=== PATIENT | female | born 1975 | race Caucasian/White ===

== ENCOUNTER 2024-09-13 09:56 | Emergency (ER) | payer BC, SELFPAY ==
[2024-09-13] VITALS (10 sets, daily range): BP systolic 102–150; BP diastolic 50–91; PULSE 60–77; RESP 9–21; TEMP 36.9; O2SAT 94–100; BMI 64.5
--- NOTE | 2024-09-13 10:02 | ECG_ITS ---
APPROVED REPORT Exam: Resting ECG HR:75 bpm ECG Measurements Heart Rate 75 AXES MT 141 P 64 QRSd 103 QRS 65 QT 378 T 53 QTc 407 Conclusion SINUS RHYTHM NORMAL ECG Electronically signed by : ESTER GUERRERO, 09/16/2024 07:47:35
--- NOTE | 2024-09-13 10:04 | HMH.EDGENADL ---
Discharge Plan Disposition Patient Disposition: Home, Self-Care Referrals Follow up/Referrals: Abdulkadir Montoya [Primary Care Provider] - See instructions Leonides Hernandez MD [Staff Physician] - See instructions Activity Restrictions/Add. Instructions Additional Instructions/Restrictions: Follow-up with your primary care provider. You can take Tylenol and ibuprofen every 6 hours as needed to help with symptoms. If you develop any new or worsening symptoms, or if you become concerned for your health for any reason, return to the emergency department for evaluation Clinical Impressions Clinical Impression: Chest pain Instructions Patient Instructions: DI for Chest Pain Print Language Print Language: Portuguese Discharge ED Provider: Abdirizak Mcmahon General Adult HPI General Chief complaint: Chest Pain Stated complaint: chest/abd pain Time Seen by Provider: 09/13/24 10:04 History of Present Illness HPI narrative: Gisela Perez is a 48-year-old female with a past medical history of hypothyroidism, obesity, lupus who presents to the emergency department for complaints of abdominal pain, nausea and chest pain. Patient states that symptoms started this morning suddenly. She reports sharp chest pain but denies any cough or fever. She states that her abdominal pain is epigastric. She has not vomited but feels as if she is going to. She denies any diarrhea or urinary symptoms. She reports that she has had her gallbladder removed in the past. She reports that she has a left ankle sprain and is currently in a cast and this happened 4 weeks ago. She reports some intermittent leg swelling to the left leg that is not worse than normal. No history of blood clots. Related Data Allergies Allergy/AdvReac Type Severity Reaction Status Date / Time No Known Allergies Allergy Unverified 09/13/24 14:46 [facility] Disclaimer: The information contained in this section may have been updated after the patient was seen, as this information can be updated by other users. Social History Smoking Status: Never smoker alcohol intake: never current occupational status: employed Travel in the last 8 weeks?: Outside the [facility] ROS Obtained: Yes Systems reviewed as appropriate & no additional complaints except as documented Physical Exam General General appearance: alert, in no apparent distress, anxious and obese Head Head exam: atraumatic Eye Eye exam: Present normal appearance ENT ENT exam: Present normal external ear exam Neck Neck exam: Present full ROM Chest Chest inspection: Present symmetric chest wall rise and tenderness (Mid anterior chest wall tenderness to palpation) Respiratory Respiratory exam: Present normal lung sounds bilaterally; Absent respiratory distress, wheezes or stridor Cardiovascular Cardiovascular exam: Present regular rate and normal rhythm Abdominal Exam Abdominal exam: Present soft and tenderness (Epigastric); Absent distention or guarding Extremities Exam Extremities exam: Present normal inspection Back Exam Back exam: Present normal inspection Neurological Exam Neurological exam: Present alert and oriented X3 Psychiatric Psychiatric exam: Present normal affect Skin Skin exam: Present warm and dry Medical Decision Making Medical Records Screening: Per USPSTF and CDC recommendations, given the prevalence of disease in our region, it is our hospital?s policy to screen for HIV and viral Hepatitis for all patients aged 18 and over and those with ongoing risk factors. Cholo Inquiry Pt receiving controlled substance: No Vital Signs: 09/13/24 10:05 09/13/24 10:05 09/13/24 10:31 Temperature 98.4 F Temperature Source Oral Pulse Rate 70 72 Pulse Rate [Left Radial] 60 Respiratory Rate 19 12 15 Blood Pressure 140/91 H 104/64 L Blood Pressure [Right Arm] 118/50 L Blood Pressure Mean [Right Arm] 72 02 Sat by Pulse Oximetry 96 99 96 Oxygen Delivery Method Room Air 09/13/24 11:00 09/13/24 11:12 09/13/24 11:30 Temperature Temperature Source Pulse Rate 61 73 66 Pulse Rate [Left Radial] Respiratory Rate 9 L 21 15 Blood Pressure 124/70 150/82 H 117/75 Blood Pressure [Right Arm] Blood Pressure Mean [Right Arm] 02 Sat by Pulse Oximetry 94 L 99 95 Oxygen Delivery Method Room Air Room Air 09/13/24 12:00 09/13/24 12:30 09/13/24 13:00 Temperature Temperature Source Pulse Rate 74 63 71 Pulse Rate [Left Radial] Respiratory Rate 18 13 15 Blood Pressure 114/65 110/55 L 102/50 L Blood Pressure [Right Arm] Blood Pressure Mean [Right Arm] 02 Sat by Pulse Oximetry 95 95 96 Oxygen Delivery Method Room Air 09/13/24 13:30 09/13/24 14:55 Temperature 98.4 F Temperature Source Pulse Rate 72 77 Pulse Rate [Left Radial] Respiratory Rate 15 17 Blood Pressure 108/51 L 112/59 L Blood Pressure [Right Arm] Blood Pressure Mean [Right Arm] 02 Sat by Pulse Oximetry 95 Oxygen Delivery Method Room Air Lab Data Lab Results 09/13/24 10:06: WBC 6.8, RBC 4.39, Hgb 11.5 L, Hct 36.2 L, MCV 82.5, MCH 26.2 L, MCHC 31.8, RDW 15.0, Plt Count 217, MPV 11.4 H, Neut % (Auto) 58.5, Lymph % (Auto) 30.3, Mcculloch % (Auto) 7.6, Eos % (Auto) 3.2, Baso % (Auto) 0.3, Neut # (Auto) 4.0, Lymph # (Auto) 2.1, M[place]ulloch # (Auto) 0.5, Eos # (Auto) 0.2, Baso # (Auto) 0.0, D-Dimer 0.49, Sodium 140, Potassium 4.3, Chloride 107, Carbon Dioxide 29, Anion Gap 8.3, BUN 16, Creatinine 0.80, Estimated Creat Clear 79, Estimated GFR 77, Est GFR ( Amer) 93, Glucose 97, Calcium 9.1, Total Bilirubin 0.5, AST 28, ALT 21, Alkaline Phosphatase 116, Troponin I < 0.01, Total Protein 7.1, Albumin 4.2, Globulin 2.9, Albumin/Globulin Ratio 1.4, Lipase 97, HCV Ab CLEM w/Rflx PCR Qn Negative, HIV Ag/Ab Combo Qual Negative 09/13/24 10:14: VBG pH 7.34, VBG pCO2 49.0, VBG pO2 50.2 H, VBG HCO3 26.0, VBG Total CO2 27.5 H, VBG O2 Saturation 82.6 H, VBG Base Excess 0.2, VBG Lactic Acid 1.8 09/13/24 11:41: Urine Color Yellow, Urine Appearance Clear, Urine pH 6.0, Ur Specific [place] 1.015, Urine Protein Negative, Urine Glucose (UA) Negative, Urine Ketones Negative, Urine Blood Negative, Urine Nitrate Negative, Urine Bilirubin Negative, Urine Urobilinogen 0.2, Ur Leukocyte Esterase Negative, Urine RBC None, Urine WBC None, Ur Squamous Epith Cells 5-10, Urine Bacteria Trace 09/13/24 12:53: Troponin I < 0.01 09/13/24 10:06 09/13/24 10:06 Orders (Tests/Meds): ED MEDICATIONS Discontinued Medications Generic Name Dose Route Start Last Admin Trade Name Freq PRN Reason Stop Dose Admin Acetaminophen 1,000 mg 09/13/24 14:42 09/13/24 14:54 Acetaminophen 500mg Tab PO 09/13/24 14:43 1,000 mg ONCE ONE Administration Ketorolac Tromethamine 15 mg 09/13/24 10:49 09/13/24 10:57 Ketorolac 30mg/Ml Vial IV 09/13/24 10:50 15 mg ONCE ONE Administration Lorazepam 1 mg 09/13/24 11:15 09/13/24 11:32 Lorazepam 1mg Tablet PO 09/13/24 11:16 1 mg ONCE ONE Administration Morphine Sulfate 4 mg 09/13/24 10:10 09/13/24 10:19 Morphine 4mg/Ml Syringe IV 09/13/24 10:11 4 mg ONCE ONE Administration Ondansetron HCl 4 mg 09/13/24 10:10 09/13/24 10:19 Ondansetron 4mg/2ml Vial IV 09/13/24 10:11 4 mg ONCE ONE Administration ORDERS Category Date Time Status CXR --portable [XR chest portable] Stat Exams 09/13/24 10:10 Completed CBC w/Auto Diff [Complete Blood Count Auto Diff] Stat Lab 09/13/24 10:06 Completed CMP [Comprehensive Metabolic Panel] Stat Lab 09/13/24 10:06 Completed D-Dimer Stat Lab 09/13/24 10:06 Completed HIV Combo Stat Lab 09/13/24 10:06 Completed Hepatitis C Ab Qual. W/ RFX Stat Lab 09/13/24 10:06 Completed Lipase Stat Lab 09/13/24 10:06 Completed Troponin I Q3H Lab 09/13/24 12:53 Completed Troponin I Stat Lab 09/13/24 10:06 Completed UA [Urinalysis and Microscopic] Stat Lab 09/13/24 11:41 Completed VBG [Venous Blood Gas] Stat RT 09/13/24 10:14 Completed ECG Data Tracing #1: I reviewed this ECG and interpreted as documented below: EKG interpreted by me personally at 10:03 AM. Normal sinus rhythm with ventricular rate of 75 bpm. QTc normal at 407. No ST elevation or depression Medical Decision Narrative: Gisela Perez is a 48-year-old female with a past medical history of hypothyroidism, obesity, lupus who presents to the emergency department for complaints of abdominal pain, nausea and chest pain. Patient states that symptoms started this morning suddenly. She reports sharp chest pain but denies any cough or fever. She states that her abdominal pain is epigastric. She has not vomited but feels as if she is going to. She denies any diarrhea or urinary symptoms. She reports that she has had her gallbladder removed in the past. She reports that she has a left ankle sprain and is currently in a cast and this happened 4 weeks ago. She reports some intermittent leg swelling to the left leg that is not worse than normal. No history of blood clots. On arrival, patient is normotensive, heart rate normal limits, breathing comfortably on room air with appropriate oxygen saturation. Afebrile. Physical exam, as stated above, revealed an obese and nontoxic appearing female appears uncomfortable but in no acute respiratory distress. Cardiopulmonary exam is unremarkable. Abdomen is soft, and mildly tender in the epigastric region without guarding or rebound. No peritonitis. She has a cast on her left foot without significant swelling to the lower extremities. On examination of the patient's chest, she has reproducible pain in the mid chest wall. Differential diagnosis includes, but is not limited to: ACS, pericarditis, myocarditis, PE, pneumonia, costochondritis, pleurisy, acute pancreatitis, among others. Patient's workup in the emergency department included: Chest x-ray, EKG, lipase, CBC, CMP, troponin, D-dimer, urinalysis patient was initially treated with 4 mg of IV morphine and 4 mg of IV Zofran. Patient subsequently received 15 mg IV Toradol for continued pain. EKG was grossly unremarkable. See interpretation above. Patient's workup was grossly unremarkable. Negative D-dimer. Negative troponin x 2. No leukocytosis. Electrolytes within normal limits. Chest x-ray without evidence of pneumonia, pneumothorax or widening of the mediastinum. See radiology report for details. Given the reproducible nature of the patient's pain in the mid chest, and her negative workup today, is felt that patient's symptomatology is unlikely cardiac in nature and potentially related to pleurisy/costochondritis. Patient had some temporary relief in her symptoms after Toradol. Patient recommended to take Tylenol and ibuprofen at home and to follow-up with her primary care physician. Return precautions were given. All questions were answered. She demonstrated understanding and was in agreement this plan. She was then discharged from the emergency department in stable condition. Critical Care Critical Care Time Critical Care Time: No
--- NOTE | 2024-09-13 10:10 | XR_ITS ---
FINAL REPORT CLINICAL HISTORY: Chest pain COMPARISON: None FINDINGS: CHEST 1 VIEW No acute pulmonary opacity is present. There is no evidence of effusion or pneumothorax. Mediastinum is unremarkable. Heart size is normal. IMPRESSION: No acute abnormality. Reviewed, Interpreted and Dictated by Deonna Tapia MD Transcribed by Qian Palacio Authenticated and [facility]
[2024-09-13 10:16] LABS: Basophils % 0.3 % (0.1-2.0); Eosinophils # 0.2 Kmm3 (0.0-0.4); Eosinophils % 3.2 % (0.1-12.0); Hematocrit 36.2 % (37.0-47.0); Hemoglobin 11.5 g/dL (12.2-16.2); Immature Granulocytes # 0.01 10^3uL; Immature Granulocytes % 0.1 %; Lymphocytes # 2.1 K/mm3 (0.7-4.5); Lymphocytes % 30.3 % (10-50); Mean Corpuscular HGB Conc 31.8 g/dL (31.8-35.4); Mean Corpuscular Hemoglobin 26.2 pg (27.0-31.2); Mean Corpuscular Volume 82.5 fl (81-99); Mean Platelet Volume 11.4 fl (7.4-10.4); Monocytes # 0.5 K/mm3 (0.1-1.0); Monocytes % 7.6 % (1.7-9.3); Neutrophils % 58.5 % (37.0-80.0); Nucleated Red Blood Cells # 0 10^3/uL; Nucleated Red Blood Cells % 0 %; Platelet Count 217 K/mm3 (142-424); Red Blood Count 4.39 M/mm3 (4.20-5.40); White Blood Count 6.8 K/mm3 (4.8-10.8)
[2024-09-13] MEDS: ONDANSETRON 4MG/2ML VIAL 4 MG IV (10:19)
[2024-09-13] MEDS: MORPHINE 4MG/ML SYRINGE 4 MG IV (10:19)
[2024-09-13 10:20] LABS: Lactate Venous 1.8 mmol/L (0.4-2.0); VBG Base Excess 0.2 mmol/L (-2.4-2.3); VBG Oxygen Saturation 82.6 % (50-70); VBG PH 7.34 mmol/L (7.31-7.41); VBG PO2 50.2 mmol/L (28-40); VBG Total CO2 27.5 mmol/L (23-27)
[2024-09-13 10:30] LABS: Alanine Aminotransferase 21 U/L (12-78); Albumin Level 4.2 g/dl (3.5-5.0); Albumin/Globulin Ratio 1.4 (1.1-1.8); Alkaline Phosphatase 116 U/L (38-126); Anion Gap 8.3 mEq/L (5-15); Aspartate Amino Transferase 28 U/L (14-36); Bilirubin,Total 0.5 mg/dl (0.2-1.3); Blood Urea Nitrogen 16 mg/dl (7-17); Calcium 9.1 mg/dl (8.4-10.2); Carbon Dioxide 29 mmol/L (22.0-30.0); Chloride 107 mmol/L (98-107); Creatinine Clearance Estimated 79 mL/min (50-200); Estimated Glomerular Filt Rate 77 ml/min (>60); GFR (African American) 93 ML/MIN (>60); Globulin 2.9 g/dL (1.3-3.2); Glucose 97 mg/dl (74-100); Lipase 97 U/L (23-300); Potassium 4.3 mmoL/L (3.5-5.1); Sodium 140 mmol/L (136-145); Total Protein,Serum 7.1 g/dl (6.3-8.2)
[2024-09-13 10:36] LABS: D-Dimer 0.49 ug/mL (0.0-0.5)
[2024-09-13 10:52] LABS: Troponin I < 0.01 ng/ml (0.00-0.034)
[2024-09-13] MEDS: KETOROLAC 30MG/ML VIAL 15 MG IV (10:57)
[2024-09-13 11:29] LABS: HIV Combo NEGATIVE (Negative)
[2024-09-13] MEDS: LORazepam 1MG TABLET 1 MG PO (11:32)
[2024-09-13 11:36] LABS: Hepatitis C Ab Qual. W/ RFX NEGATIVE (Negative)
[2024-09-13 11:44] LABS: Microscopic, Urine URINE MICROSCOPIC (MICROSCOPIC)
[2024-09-13 12:06] LABS: Appearance,Urine CLEAR (Clear); Bilirubin,Urine Negative (Negative); Blood, Urine Negative (Negative); Color,Urine YELLOW (Yellow); Glucose,Urine (UA) Negative (Negative); Ketones,Urine Negative (Negative); Leukocyte Esterase,Urine Negative (Negative); Nitrate,Urine Negative (Negative); Protein,Urine Negative (Negative); Specific Gravity, Urine 1.015 (1.005-1.030); Urobilinogen,Urine 0.2 EU/dl (0.2)
[2024-09-13 12:21] LABS: Bacteria,Urine Trace /lpf
[2024-09-13 13:27] LABS: Troponin I < 0.01 ng/ml (0.00-0.034)
[2024-09-13] MEDS: ACETAMINOPHEN 500MG TAB 1000 MG PO (14:54)
== END 2024-09-13 15:01 | disposition home or self-care (01) ==
PROVIDERS: Emergency Provider Student in an Organized Health Care Education/Training Program; PCP Pediatrics
DX: R07.9 Chest pain, unspecified (principal); E03.0 Congenital hypothyroidism with diffuse goiter; M32.9 Systemic lupus erythematosus, unspecified
CPT/HCPCS: 71045; 80053; 81001; 82803; 83690; 84484; 85025; 85378; 86803; 87389; 93005; 96374; 96375; 99285; J1885; J2270; J2405

== ENCOUNTER 2024-11-16 16:07 | Emergency (ER) | payer BC, SELFPAY ==
--- OUTSIDE RECORDS SUMMARY | 2024-09-24 10:45 | XMS_ITS | Encounter Summary ---
Author Organization [facility] Address [address] [place] [address] Care Team Providers Care Director Of Manufacturing Operations Name Role Phone Abdulkadir Montoya MD Primary Care Provider [phone] Reason for Visit * Reason Comments Follow-up Encounter Details Date Type Department Care Team (Latest Contact Info) Description 09/24/2024 10:45 [place] [address] Leonides Stroud, DPDelfina [address] [id number] Stress reaction of left foot with routine healing, subsequent encounter (Primary Dx); Peroneal tendinitis of left lower extremity; Sprain of tarsometatarsal ligament of left foot, subsequent encounter Social History Tobacco Use Types Packs/Day Years Used Date Smoking Tobacco: Former Cigarettes 0.5 24 1 - 01/22/1999 Passive Smoke Exposure: Past Smokeless Tobacco: Never Alcohol Use Standard Drinks/Week Comments No 0 (1 standard drink = 0.6 oz pur e alcohol) Overall Financial Resource Strain (CARDIA) Answe r Date Recorded How hard is it for you to pa y for the very basics like food, housing, medical care, and heating? Not hard at all 04/04/2023 PHQ-2 Answer Date Recorded PHQ-2 Total Score 0 04/04/2023 [facility] - Occupational Stress Questionnaire Answer Date Recorded Do you feel stress - tense, restless, nervous, or anxious, or unable to sleep at night because your mind is troubled all the time - these days? Not at all 04/06/2023 Exercise Vital Sign Answer Date Recorde d On average, how many days pe r week do you engage in moderate to strenuous exercise (like a brisk walk)? 0 days 04/04/2023 On average, how many minutes do you engage in exercise at this level? 0 min 04/04/2023 Hunger Vital Sign Answer Date Recorded Within the past 12 months, y ou worried that your food would run out before you got the money to buy more. Never true 04/04/20 23 Within the past 12 months, t he food you bought just didn't last and you didn't have money to get more. Never true 04/04/2023 PRAPARE - Transportation Answer Date Re corded In the past 12 months, has l ack of transportation kept you from medical appointments or from getting medications? No 03/24 In the past 12 months, has l ack of transportation kept you from meetings, work, or from getting things needed for daily living? No 04/04/2023 Sexually Active Control Partners Comments Yes Surgical Male hysterectomy Comments No Sex and Gender Information Value Date Recorded Sex Assigned at Not on file Legal Sex Female 4:39 PM EDT Gender Identity Not on file Sexual Orientation Not on file documented as of this encounter Functional Status * Is the person deaf or does he/she have serious difficulty hearing? Answer Date of Assessment Author No 09/02/2023 11:02 AM ALTRICE LYMAN * Is the person blind or does he/she have serious difficulty seeing even when wearing glasses? Answer Date of Assessment Author No 09/02/2023 11:02 AM LATRICE LYMAN * Does this person have serious difficulty walking or climbing stairs? Answer Date of Assessment Author No 09/02/2023 11:02 AM LATRICE LYMAN * Does this person have difficulty dressing or bathing? Answer Date of Assessment Author No 09/02/2023 11:02 AM LATRICE LYMAN * Because of a physical, mental or emotional condition, does this person have difficulty doing errands alone such as visiting a doctor's office or shopping? Answer Date of Assessment Author No 09/02/2023 11:02 AM LATRICE LYMAN NA documented as of this encounter Mental Status * Because of a physical, mental or emotional condition, does this person have serious difficulty concentrating, remembering or making decisions? Answer Entry Date Author No 09/02/2023 11:02 AM LATRICE LYMAN NA documented in this encounter Progress Notes * Leonides Stroud DPM - 09/24/2024 10:45 AM EDT Images from the original note were not included. PATIENT NAME: Gisela Kennedy DATE OF (age): 48 y.o. PHYSICIAN: Leonides Stroud DPM Date of Visit: 09/24/2024 Subjective: Chief Complaint: Chief Complaint Patient presents with Left Foot - Follow-up History: Gisela Kennedy is a 48 y.o. female. Over the last 3 weeks the casting of the left leg has created relief from previous lateral midfoot pain. Past Medical History: Reviewed registration form and medical history. Past Surgical History: Reviewed registration form and medical history. Family History: Reviewed registration form and medical history. Social History: Reviewed registration form and medical history. Review of Systems: Reviewed registration form and medical history. Objective Removal of the cast shows no neurovascular or dermatologic damage to the left leg. The styloid process is pain-free. The cuboid is pain-free. Surprisingly, there is a mild area of new pain at the ATFL. I do not see other problems. Imaging Deferred Assessment Diagnoses and all orders for this visit: Stress reaction of left foot with routine healing, subsequent encounter Peroneal tendinitis of left lower extremity Sprain of tarsometatarsal ligament of left foot, subsequent encounter Plan At this point I think the pain around the ATFL is secondary to casting itself and will resolve withthe discontinuation of casting. I believe stability has been achieved elsewhere. This patient will use her previous contour boot as a weaning device and utilize range of motion activities to restore strength and function to the ankle. All techniques were discussed in detail. Follow-up is only as needed and not expected. DME Summary No orders found for display Leonides Stroud DPM documented in this encounter Plan of Treatment Upcoming Encounters Date Type Department Care Team (Late st Contact Info) Description 11/21/2024 1:45 PM EDT Office Visit [facility] [address] [place], [place] [phone] Arminda Wilson APRN [address] [place], [place] [id number] 02/10/2025 1:30 PM EDT Office Visit [facility] [address] [place] [address] Judith Lomax MD [address] [facility] [address] [place] [address] documented as of this encounter Goals Goal Patient Goal Type Associated Problems Recent Progress Patient-Stated? Author Eat better, exercise, reach an ideal body weight General No Rula Birch CCMA Stay Tobacco Free Lifestyle No Rula Birch CCMA documented as of this encounter Visit Diagnoses Diagnosis Stress reaction of left foot with routine healing, subsequent encounter- Primary Peroneal tendinitis of left lower extremity Other enthesopathy of ankle and tarsus Sprain of tarsometatarsal ligament of left foot, subsequent encounter documented in this encounter Care Teams Director Of Manufacturing Operations Relationship Specialty Start Date End Date Abdulkadir Montoya MD [address] [place] [address] [place] [address] PCP - General 06/29/09 documented as of this encounter
--- OUTSIDE RECORDS SUMMARY | 2024-10-07 08:30 | XMS_ITS | Encounter Summary ---
Author Organization [place] [address] Care Team Providers Care Design Editor Name Role Phone Abdulkadir Montoya MD Primary Care Provider [phone] Encounter Details Date Type Department Care Team (Latest Contact Info) Description 10/07/2024 8:30 AM EDT - 10/07/2024 11:59 PM EDT Hospital Encounter [facility] [address] 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 60 Each 09/26/2023 Brompheniramine-P seudoeph-DM 2-30-10 mg/5 mL Oral SyrupIndications: Viral URI with cough Take 10 mL by mouth every 4 hours as needed (Cough, Nasal Congestion, Allergies). 240 mL 1 06/07/2024 COLLAGEN MISC 2 Tablets by [employer].(Non-Drug; Combo Route) route daily. Collagen Peptide Multivitamin docusate sodium (COLACE) 100 mg Oral Capsule Take 1 Capsule by mouth 2 times daily. 60 Capsule 2 04/04/2024 EPINEPHrine (EPIPEN) 0.3 mg/0.3 mL Inj Auto-Injector Inject 0.3 mL into the muscle as needed for Anaphylaxis. 2 Each 04/10/2024 fUROsemide (LASIX) 40 mg Oral Tablet TAKE 1 TABLET BY MOUTH EVERY DAY 30 Tablet 10/09/2024 hydroxychloroquin e (PLAQUENIL) 200 mg Oral TabletIndications :YNES positive TAKE 1 TABLET BY MOUTH EVERY DAY 30 Tablet 5 06/10/2024 ibuprofen (ADVIL;MOTRIN) 800 mg Oral TabletIndications :Stress reaction of left foot, initial encounter,Peronea l tendinitis of left lower extremity,Painful os peroneum syndrome Take 1 Tablet by mouth every 6 hours as needed. 40 Tablet 08/20/2024 ibuprofen (ADVIL;MOTRIN) 600 mg Oral Tablet Take 1 Tablet by mouth every 6 hours as needed for Pain. 60 Tablet 1 04/04/2024 LEVOthyroxine (SYNTHROID) 175 mcg Oral Tablet Take 1 Tablet by mouth daily. 08/08/2024 meloxicam (MOBIC) 15 mg Oral TabletIndications :Acute midline low back pain without sciatica TAKE 1 TABLET BY MOUTH EVERY DAY 30 Tablet 2 09/10/2024 omeprazole (PRILOSEC) 40 mg Oral Capsule, Delayed Release(E.C.)Clary cations:Abdominal pain, LUQ (left upper quadrant) Take 1 Capsule by mouth daily. 90 Capsule 3 04/26/2024 rOPINIRole (REQUIP) 1 mg Oral TabletIndications :Restless legs syndrome (RLS) TAKE 1 TABLET BY MOUTH EVERY DAY AT NIGHT 90 Tablet 1 10/08/2024 fUROsemide (LASIX) 40 mg Oral Tablet TAKE 1 TABLET BY MOUTH EVERY DAY 30 Tablet 08/30/2024 5 gabapentin (NEURONTIN) 400 mg Oral Capsule Take 1 Capsule by mouth 3 times daily for 90 days. 90 Capsule 2 07/16/2024 5 naproxen (NAPROSYN) 500 mg Oral Tablet [...] 11/21/2024 1:45 PM EDT Office Visit [facility] [address] [place] [id number] Arminda Wilson APRN [address] [place] [id number] 02/10/2025 1:30 PM EDT Office Visit [facility] [place] [address] [facility] [address] [place] [address] Judith Lomax MD [address] [facility] [address] [place] [id number] documented as of this encounter Goals Goal Patient Goal Type Associated Problems Recent Progress Patient-Stated? 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
--- OUTSIDE RECORDS SUMMARY | 2024-10-30 09:25 | XMS_ITS | Encounter Summary ---
Author Organization [place] [address] Care Team Providers Care Oyster Shucker Name Role Phone Abdulkadir Montoya MD Primary Care Provider [phone] Reason for Referral * Mammography (Routine) - Pending Review Specialty Diagnoses / Procedures Referred By Donna quiñonez Referred To Contact Radiology Diagnoses Encounter for screening mammogram for malignant neoplasm of breast Procedures MM MAMMO DIGITAL TRACIE SCREEN Arminda Orozco APRN [address] [place] [address] Phone: tel: fax: Referral ID Status Reason Start Date Expiration Date V isits Requested Visits Authorized [id number] Pending Review 2024 2026 1 1 Reason for Visit * Mammography (Routine) - Pending Review Specialty Diagnoses / Procedures Referred By Donna quiñonez Referred To Contact Radiology Diagnoses Encounter for screening mammogram for malignant neoplasm of breast Procedures MM MAMMO DIGITAL TRACIE SCREEN Arminda Orozco APRN [address] [place] [address] Phone: tel: fax: Referral ID Status Reason Start Date Expiration Date V isits Requested Visits Authorized [id number] Pending Review 2024 2026 1 1 Encounter Details Date Type Department Care Team (Latest Contact Info) Description 10/30/2024 9:25 AM EDT - 10/30/2024 11:59 PM EDT Hospital Encounter [facility] [address] [place] [phone] Arminda [place] APRN [address] [...] Date Recorded PHQ-2 Total Score 0 04/04/2023 [facility] [place] of Occupat ional Health - Occupational Stress [...] Entry Date Author No 09/02/2023 11:02 AM LATIRCE LYMAN documented in this encounter Medications at [...] 1 06/07/2024 COLLAGEN MISC 2 Tablets by Mis.(Non-Drug; Combo Route) route daily. Collagen Peptide Multivitamin [...] needed for Muscle spasms. 30 Tablet 2024 gabapentin (NEURONTIN) 400 mg Oral Capsule Take 1 Capsule by mouth 3 times daily for 90 days. 90 Capsule 2 07/16/2024 PARoxetine (PAXIL) 20 mg Oral Tablet TAKE 1 TABLET BY MOUTH EVERY DAY 30 Tablet 10/08/2024 5 documented as of this encounter Discharge Disposition Disposition Code Departure Means Destination Home or Self Care documented in this encounter Plan of Treatment Upcoming Encounters Date Type Department Care Team (Late st Contact Info) Description 11/21/2024 1:45 PM EDT Office Visit [facility] [place] [facility] [address] [place] [phone] Arminda Wilson APRN [address] [place] [address] 02/10/2025 1:30 PM EDT Office Visit [facility] [address] [facility] [address] [place] [address] Judith Lomax MD [address] [facility] [address] [place] [address] documented as of this encounter [...] EDT Impressions 10/30/2024 10:39 AM EDT Negative ([id number]) RECOMMENDATION: Routine Screening Mammogram in 1 Year Bilateral . . COMMENTS: DISCLAIMER *The patient was notified by MyChart or mail of the results for this examination. *The patient's information was entered into a reminder system with a target due date for the next breast imaging, in accordance with the [employer] and the Society of [...] for screening mammogram for malignant neoplasm of [id number] COMPARISON STUDIES: Compared with prior studies the most recent being 09/16/2022 MM MAMMO DIGITAL TRACIE SCREEN BILAT at [facility] TISSUE DENSITY: There are scattered areas of fibroglandular density. FINDINGS: No mammographic evidence of malignancy. Procedure Note Kaleb Jimenez MD - 10/30/2024 EXAM: MM MAMMO DIGITAL TRACIE SCREEN BILAT EXAM DATE: 10/30/2024 10:03 AM INDICATION: Z12.31-Encounter for screening mammogram for malignantneoplasm of [id number]-[id number] COMPARISON STUDIES: Compared with prior studies the most recent being 09/16/2022 MM MAMMO DIGITAL TRACIE SCREEN BILAT at [facility] TISSUE DENSITY: There are scattered areas of fibroglandular density. FINDINGS: No mammographic evidence of malignancy. IMPRESSION: Negative ([id number]) RECOMMENDATION: Routine Screening Mammogram in 1 Year Bilateral . . COMMENTS: DISCLAIMER *The patient was notified by MyChart or mail of the results for this examination. *The patient's information was entered into a reminder system with atarget due date for the next breast imaging, in accordance with the [employer] and the Society of Breast Imaging recommendations. *Breast Imaging has a false negative rate of 15%. *Any patient with a palpable abnormality, unexplained by breast imaging,should be managed on a clinical basis by the attending physician. Armindadiaz Wilson CUSTOMER SUPPLY COORDINATOR IMG MAMMOGRAPHY ORDERABLES Final Result documented in this encounter Visit Diagnoses Diagnosis Encounter for screening mammogram for malignant neoplasm of breast Other screening mammogram documented in this encounter Care Teams Oyster Shucker Relationship Specialty Start Date End Date Abdulkadir Montoya MD [address] [place], [place] [id number] PCP - General 06/29/09 documented as of this encounter
--- OUTSIDE RECORDS SUMMARY | 2024-11-06 12:23 | XMS_ITS | Encounter Summary ---
Author Organization [place] [address] Care Team Providers Care Rn Occupational Name Role Phone Abdulkadir Montoya MD Primary Care Provider [phone] Reason for Visit * Reason Comments Fall Pt states she fell l ast night in a small hole and state she is having right hip and leg pain. Encounter Details Date Type Department Care Team (Late st Contact Info) Description 11/06/2024 12:23 PM EDT - 11/06/2024 3:24 PM EDT Emergency [facility] [address] [place] [address]. [place] [address] Corazon Salvador MD [address] [place] [phone] Right leg pain (Primary Dx); Right [...] Date Recorded PHQ-2 Total Score 0 04/04/2023 [facility] - Occupational Stress Questionnaire Answer Date Recorded [...] 12:21 PM EDT Abdirizak Resendiz RN * [facility] Suicide Severity Rating Scale (Q shift for [...] 1 06/07/2024 COLLAGEN MISC 2 Tablets by Misc.(Non-Drug; Combo Route) route daily. Collagen Peptide Multivitamin [...] Pack See package instructions 21 Tablet 11/05/2024 omeprazole (PRILOSEC) 40 mg Oral Capsule, Delayed [...] 90 days. 90 Capsule 2 07/16/2024 5 documented as of this encounter Ordered [...] up to 30 days. 20 Tablet 11/06/2024 12/06/2024 documented in this encounter Discharge Disposition Disposition [...] 1200, 1600, 2000. 09/26/23 Jj Garcia MD Lqlyijfyqnzhwhx-Qfwnlyrdr-AD 2-30-10 mg/5 mL Oral Syrup Take 10 mL by mouth every 4 hours as needed(Cough, Nasal Congestion, Allergies). 06/07/24 Arminda Wilson APRN COLLAGEN MISC 2 Tablets by [facility].(Non-Drug; Combo Route) route daily. Collagen Peptide Multivitamin [...] Systemic lupus erythematosus with organ system involvement (HCC) 01/08/2024 Thyroid disease Urinary incontinence Urinary tract [...] DEFORMITY CALCANEUS; Surgeon: Parveen Marsh MD; Location: [facility] MAIN OR; Service: Orthopedics APPENDECTOMY BACK SURGERY laminectomy, discectomy SECTION CHOLECYSTECTOMY, LAPAROSCOPIC 06/18/2012 LAPAROSCOPIC CHOLECYSTECTOMY ; Surgeon: Faith Navas MD; [facility]; Service: General CYSTOCELE REPAIR N/A 04/04/2024 Anterior Repair; Posterior Repair; Placement of Retropubic Midurethral Mesh Sling; Cystoscopy; Surgeon: Elmira Mendoza MD; [facility]; Service: Gynecology DENTAL SURGERY 01/29/2013 premolar DILATION AND CURETTAGE OF UTERUS ENDOMETRIAL ABLATION N/A 07/29/2015 Surgeon: Manuel Moran MD; Location: [facility] MA[facility] OR; Service: Gynecology HYSTERECTOMY Left 08/11/2020 ROBOTIC ASSISTED TOTAL LAPAROSCOPIC HYSTERECTOMY LEFT OOPHORECTOMY ; Surgeon: Beverly Hernandez DO; Location: [facility] OR; Service: Gynecology HYSTEROSCOPY August LAPAROSCOPY Right 07/29/2015 DAVINCI ROBOTIC ASSISTED LAPAROSCOPY BILATERAL SALPINGECTOMY, RIGHT OOPHERECTOMY WITH DILATION AND CURETTAGE HYSTEROSCOPY ABLATION WITH NOVASURE; Surgeon: Manuel Moran MD; Location: [facility] OR; Service: Gynecology LUMBAR DISC SURGERY Bilateral 03/11/2016 LUMBAR LAMINECTOMY AND DISCECTOMY LEFT L5/S1 ; Surgeon: Ramesh Garcia MD; Location: [facility] MA[facility] OR; Service: Neurosurgery OVARY REMOVAL Right SHOULDER ARTHROSCOPY Right 02/04/2013 RIGHT SHOULDER ARTHROSCOPY, ROTATOR CUFF REPAIR, SUBACROMIAL DECOMPRESSION, MACARIO, DEBRIDEMENT ; Surgeon: Kendall Garcia MD; [facility]; Service: Orthopedics SHOULDER SURGERY SOFT TISSUE BIOPSY N/A 03/29/2016 INCISION AND DRAINAGE LUMBAR WOUND; Surgeon: Ramesh Garcia MD; Location: [facility] OR; Service: Neurosurgery SPINE SURGERY TONSILLECTOMY TUBAL LIGATION URETHROPEXY N/A 04/04/2024 .; Surgeon: Elmira Mendoza MD; [facility]; Service: Gynecology Review of Systems [...] may contain unintended errors Yin Raygoza PA-C 11/06/241524 Cosigned by Corazon Salvador MD at 11/07/2024 [...] 11/21/2024 1:45 PM EDT Office Visit [facility] [place] [address] [place] [phone] Arminda Wilson APRN [address] [facility] [place] [address] 02/10/2025 1:30 PM EDT Office Visit [facility] [place] [address] [facility] [address] [place] [phone] Judith Lomax MD [address] [address] documented as of this encounter [...] the ordering clinician. Yin Raygoza PA-C IMG CT ORDERABLES Final Result * [...] 11/06/2024 documented in this encounter Care Teams Rn Occupational Relationship Specialty Start Date End Date Abdulkadir Montoya MD [address] [place] [phone] PCP - General 06/29/09 documented as of this encounter
--- OUTSIDE RECORDS SUMMARY | 2024-11-12 11:30 | XMS_ITS | Encounter Summary ---
Author Organization [place] [address] Care Team Providers Care Press Operator Apprentice Name Role Phone Abdulkadir Montoya MD Primary Care Provider [phone] Reason for Visit * Reason Comments Follow-up Encounter Details Date Type Department Care Team (Latest Contact Info) Description 11/12/2024 11:30 AM EDT Office Visit [facility] [address] [phone] Nicolette Phillips PA-C [address] [place] [address] History of pelvic surgery (Primary Dx); History of repair of rectocele; History of suburethral sling procedure Social History Tobacco Use Types Packs/Day Years [...] Date Recorded PHQ-2 Total Score 0 04/04/2023 [employer] - Occupational Stress [...] Sign Reading Time Taken Comments Blood Pressure - - Pulse 80 11/12/2024 11:16 AM EDT Temperature - - Respiratory Rate 16 11/12/2024 11:16 AM EDT Oxygen Saturation 99% 11/12/2024 11:16 AM EDT Inhaled Oxygen Concentration - - Weight - - Height - - Body Mass Index - - documented in this encounter Functional Status * Is the person deaf or does he/she have serious difficulty hearing? Answer Date of Assessment Author No 09/02/2023 11:02 AM EDLATRICE HARRY * Is the person blind or does he/she have serious difficulty seeing even when wearing glasses? Answer Date of Assessment Author No 09/02/2023 11:02 AM EDT HOEH, AN NA * Does this person have serious difficulty walking or climbing stairs? Answer Date of Assessment Author No 09/02/2023 11:02 AM ERNIE CALL, AN NA * Does this person have difficulty dressing or bathing? Answer Date of Assessment Author No 09/02/2023 11:02 AM ERNIE CALL, AN NA * Because of a physical, mental or emotional condition, does this person have difficulty doing errands alone such as visiting a doctor's office or shopping? Answer Date of Assessment Author No 09/02/2023 11:02 AM ERNIE CALL, AN NA documented as of this encounter Mental Status * Because of a physical, mental or emotional condition, does this person have serious difficulty concentrating, remembering or making decisions? Answer Entry Date Author No 09/02/2023 11:02 AM ERNIE CALL, AN NA documented in this encounter Progress Notes * Nicolette Phillips PA-C - 11/12/2024 11:30 AM EDT Images from the original note were not included. Nicolette Phillips PA-C Follow Up Note Gisela Kennedy 1975 Assessment: 49 y.o. female with 1. History of pelvic surgery 2. History of repair of rectocele 3. History of suburethral sling procedure Plan: 1) H/o Anterior Repair; Posterior Repair with levator plication; Enterocele repair; Placement of Retropubic Midurethral Mesh Sling; Cystoscopy with Dr. Lovelace on 04/04/24: No return of vaginal bulge/POP symptoms. RONY resolved. -Normal post op healing 2) F/u in 1 year, sooner if symptoms return/worsen HPI: Gisela Guthrie Chris Marcia is a 49 y.o. who is here for f/u s/p POP/RONY surgery Patient has been doing well. No new issues or concerns today. S/p Anterior Repair; Posterior Repair with levator plication; Enterocele repair; Placement of Retropubic Midurethral Mesh Sling; Cystoscopy with Dr. Lovelace on 04/04/24 Vaginal bulge/POP symptoms: Resolved since surgery RONY: Resolved since surgery Vaginal bleeding: None Vaginal discharge: None UTI symptoms: None Difficulty emptying: None Past Medical History: Diagnosis Date Allergy Anemia in the past Anxiety Arthritis Asthma 01/29/2013 last attack one and half months ago. BUTLER (dyspnea on exertion) GERD (gastroesophageal reflux disease) Conchis's disease Headache Heartburn Hypothyroidism Neuromuscular disorder ([facility]) legs and feet Pneumonia 2018 Postoperative nausea and vomiting 01/29/2013 Rash Rotator cuff injury 01/29/2013 currently right rotator cuff injury. Sleep apnea LOW SPO2 LEVELS Slow to wake up after anesthesia Systemic lupus erythematosus with organ system involvement ([facility]) 01/08/2024 Thyroid disease Urinary incontinence Urinary tract infection not current Past Surgical History: Procedure Laterality Date ACHILLES TENDON SURGERY Left 09/28/2018 LEFT ACHILIES TENDON RECONSTRUCTION WITH EXCISION 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; Surgeon: Parveen Marsh MD; Location: [facility] OR; Service: Orthopedics APPENDECTOMY BACK SURGERY laminectomy, discectomy SECTION CHOLECYSTECTOMY, LAPAROSCOPIC 06/18/2012 LAPAROSCOPIC CHOLECYSTECTOMY ; Surgeon: Faith Navas MD; Location: [facility] OR; Service: General CYSTOCELE REPAIR N/A 04/04/2024 Anterior Repair; Posterior Repair; Placement of Retropubic Midurethral Mesh Sling; Cystoscopy; Surgeon: Elmira Mendoza MD; Location: [facility] OR; Service: Gynecology DENTAL SURGERY 01/29/2013 premolar DILATION AND CURETTAGE OF UTERUS ENDOMETRIAL ABLATION N/A 07/29/2015 Surgeon: Manuel Moran MD; Location: [facility] OR; Service: Gynecology HYSTERECTOMY Left 08/11/2020 ROBOTIC ASSISTED TOTAL LAPAROSCOPIC HYSTERECTOMY LEFT OOPHORECTOMY ; Surgeon: Beverly Hernandez DO; Location: [facility]; Service: Gynecology HYSTEROSCOPY August LAPAROSCOPY Right 07/29/2015 DAVINCI ROBOTIC ASSISTED LAPAROSCOPY BILATERAL SALPINGECTOMY, RIGHT OOPHERECTOMY WITH DILATION AND CURETTAGE HYSTEROSCOPY ABLATION WITH NOVASURE; Surgeon: Manuel Moran MD; Location: [facility] OR; Service: Gynecology LUMBAR DISC SURGERY Bilateral 03/11/2016 LUMBAR LAMINECTOMY AND DISCECTOMY LEFT L5/S1 ; Surgeon: Ramesh Garcia MD; Location: [facility]; Service: Neurosurgery OVARY REMOVAL Right SHOULDER ARTHROSCOPY Right 02/04/2013 RIGHT SHOULDER ARTHROSCOPY, ROTATOR CUFF REPAIR, SUBACROMIAL DECOMPRESSION, MACARIO, DEBRIDEMENT ; Surgeon: Kendall Garcia MD; Location: [facility]IN [facility]; Service: Orthopedics SHOULDER SURGERY SOFT TISSUE BIOPSY N/A 03/29/2016 INCISION AND DRAINAGE LUMBAR WOUND; Surgeon: Ramesh Garcia MD; Location: [facility]IN OR; Service: Neurosurgery SPINE SURGERY TONSILLECTOMY TUBAL LIGATION URETHROPEXY N/A 04/04/2024 .; Surgeon: Elmira Mendoza MD; Location: [facility]IN OR; Service: Gynecology Family History Problem Relation Age of Onset [...] Pressure Paternal Uncle Anesth Problems Neg Hx Review of Systems: Genitourinary: Denies dysuria, vaginal discharge, vaginal bleeding Focused Physical Exam: Vitals: 11/12/24 1116 Pulse: 80 Resp: 16 SpO2: 99% Pelvic Exam: Inspector Elevators: Kristina External genitalia: Normal Introitus: Atrophic Vagina: Atrophic POP-Q Aa = -2 Ba = -2 C = -7 GH = 3 PB = 3 TVL = 9 Ap = -2 Bp = -2 D = x Nicolette Phillips PA-C [facility] [place] [phone] 11/12/24 1:13 PM documented in this encounter Plan of Treatment Upcoming Encounters Date Type Department Care Team (Late st Contact Info) Description 11/21/2024 1:45 PM EDT Office Visit [facility] [place] [address] [place] [address] Arminda Wilson APRN [address] [place] [phone] 02/10/2025 1:30 PM EDT Office Visit [facility] [place] [address] [facility] [address] [place] [address] Judith Lomax MD [address] [facility] [address] [place] [address] documented as of this encounter Goals Goal Patient Goal Type Associated Problems Recent Progress Patient-Stated? Author Eat better, exercise, reach an ideal body weight General No Rula Birch CCMA Stay Tobacco Free Lifestyle No Rula Birch CCMA documented as of this encounter Visit Diagnoses Diagnosis History of pelvic surgery- Primary Personal history of surgery to other organs History of repair of rectocele History of suburethral sling procedure documented in this encounter Care Teams Press Operator Apprentice Relationship Specialty Start Date End Date Abdulkadir Montoya MD [address] [facility] [place] [phone] PCP - General 06/29/09 documented as of this encounter
--- NOTE | 2024-11-16 16:11 | CT_ITS ---
PROCEDURE INFORMATION: Exam: CTA Neck With Contrast Exam date and time: 11/16/2024 5:26 PM Age: 49 years old Clinical indication: Pain; Headache; Additional info: Headache, seizure-like activity TECHNIQUE: Imaging protocol: Computed tomographic angiography of the neck with contrast. Exam focused on the cervical segments of the vasculature. 3D rendering (Not supervised by radiologist): MIP and/or 3D reconstructed images were created by the technologist. Radiation optimization: All CT scans at this facility use at least one of these dose optimization techniques: automated exposure control; mA and/or kV adjustment per patient size (includes targeted exams where dose is matched to clinical indication); or iterative reconstruction. Contrast material: ISOVUE; Contrast volume: 80 ml; Contrast route: INTRAVENOUS (IV); COMPARISON: CT HEAD/BRAIN WO CON 11/16/2024 5:24 PM FINDINGS: Right common carotid artery: No stenosis. No dissection or occlusion. Right internal carotid artery: No significant stenosis. No dissection or occlusion. Right external carotid artery: No occlusion or stenosis of the origin. Left common carotid artery: No stenosis. No dissection or occlusion. Left internal carotid artery: No significant stenosis. No dissection or occlusion. Left external carotid artery: No occlusion or stenosis of the origin. Right vertebral artery: No stenosis. No dissection or occlusion. Left vertebral artery: No stenosis. No dissection or occlusion. Soft tissues: Normal. No significant soft tissue swelling. Bones/joints: No acute fracture. IMPRESSION: Unremarkable examination with no significant stenosis, dissection, or occlusion. REFERENCES: NASCET CRITERIA. The degree of stenosis in the cervical segment of the internal carotid artery is based on NASCET criteria. Normal is no stenosis. Mild is less than 50% stenosis. Moderate is 50-69% stenosis. Severe is 70% to 99% stenosis. Total occlusion is no detectable patent lumen.
--- NOTE | 2024-11-16 16:11 | CT_ITS ---
PROCEDURE INFORMATION: Exam: CT Head Without Contrast Exam date and time: 11/16/2024 5:24 PM Age: 49 years old Clinical indication: Pain; Headache; Additional info: Headache, seizure-like activity TECHNIQUE: Imaging protocol: Computed tomography of the head without contrast. Radiation optimization: All CT scans at this facility use at least one of these dose optimization techniques: automated exposure control; mA and/or kV adjustment per patient size (includes targeted exams where dose is matched to clinical indication); or iterative reconstruction. COMPARISON: CT HEAD/BRAIN WO CON 11/16/2024 5:24 PM FINDINGS: Brain: Normal. No hemorrhage. Age appropriate white matter. No mass effect. No focal mass. The cook-white matter junction is intact. Cerebral ventricles: No ventriculomegaly. Paranasal sinuses: Visualized sinuses are unremarkable. No fluid levels. Mastoid air cells: Visualized mastoid air cells are well aerated. Bones: Unremarkable. No acute fracture. Soft tissues: Unremarkable. IMPRESSION: Unremarkable noncontrast examination of brain. There is no hemorrhage or mass. There is no large infarction seen.
--- NOTE | 2024-11-16 16:11 | CT_ITS ---
PROCEDURE INFORMATION: Exam: CTA Head With Contrast, Arteriography Exam date and time: 11/16/2024 5:26 PM Age: 49 years old Clinical indication: Pain; Headache; Additional info: Headache, seizure-like activity TECHNIQUE: Imaging protocol: Computed tomographic angiography of the head with contrast. Exam focused on the arteries. 3D rendering (Not supervised by radiologist): MIP and/or 3D reconstructed images were created by the technologist. Radiation optimization: All CT scans at this facility use at least one of these dose optimization techniques: automated exposure control; mA and/or kV adjustment per patient size (includes targeted exams where dose is matched to clinical indication); or iterative reconstruction. Contrast material: ISOVUE; Contrast volume: 80 ml; Contrast route: INTRAVENOUS (IV); COMPARISON: CT HEAD/BRAIN WO CON 11/16/2024 5:24 PM FINDINGS: ANTERIOR CIRCULATION: Right internal carotid artery: Intracranial segment is patent with no significant stenosis or occlusion. No aneurysm. Right middle cerebral artery: No occlusion or significant stenosis. No aneurysm. Right anterior cerebral artery: No occlusion or significant stenosis. No aneurysm. Left internal carotid artery: Intracranial segment is patent with no significant stenosis. No aneurysm. Left middle cerebral artery: No occlusion or significant stenosis. No aneurysm. Left anterior cerebral artery: No occlusion or significant stenosis. No aneurysm. POSTERIOR CIRCULATION: Right vertebral artery: No occlusion or significant stenosis. No aneurysm. Left vertebral artery: No occlusion or significant stenosis. No aneurysm. Basilar artery: No occlusion or significant stenosis. No aneurysm. Right posterior cerebral artery: No occlusion or significant stenosis. No aneurysm. Left posterior cerebral artery: No occlusion or significant stenosis. No aneurysm. Veins: No venous sinus thrombosis. Brain: Normal. No hemorrhage. Unremarkable white matter. No mass effect. Cerebral ventricles: Normal. No ventriculomegaly. Bones/joints: Unremarkable. No acute fracture. Soft tissues: Unremarkable. IMPRESSION: No evidence for a embolism, occlusion, dissection, stenosis, or aneurysm.
--- NOTE | 2024-11-16 16:11 | ECG_ITS ---
APPROVED REPORT Exam: Resting ECG HR:97 bpm ECG Measurements Heart Rate 97 AXES HI 149 P 78 QRSd 105 QRS 63 QT 325 T 52 QTc 379 Conclusion SINUS RHYTHM NONSPECIFIC ST & T-WAVE ABNORMALITY BORDERLINE ECG Electronically signed by : ESTER GUERRERO, 11/17/2024 07:26:24
[2024-11-16 16:14] VITALS: BP 126/71; PULSE 97; RESP 16; TEMP 36.9; O2SAT 95; BMI 59.3
[2024-11-16] MEDS: diazePAM 10MG/2ML SYRINGE 5 MG IV (16:18)
--- NOTE | 2024-11-16 16:21 | PC.NURSE ---
Administered Medication to patient verified via bracelet, also confirmed allergies
[2024-11-16 16:22] LABS: Hematocrit 35.0 % (37.0-47.0); Hemoglobin 11.3 g/dL (12.2-16.2); Immature Granulocytes % 0.3 %; Mean Corpuscular HGB Conc 32.3 g/dL (31.8-35.4); Mean Corpuscular Hemoglobin 26.3 pg (27.0-31.2); Mean Corpuscular Volume 81.6 fl (81-99); Nucleated Red Blood Cells % 0 %; Platelet Count 184 K/mm3 (142-424); Red Blood Count 4.29 M/mm3 (4.20-5.40); Red Cell Distribution Width-SD 44.0 fL; White Blood Count 7.9 K/mm3 (4.8-10.8)
--- OUTSIDE RECORDS SUMMARY | 2024-11-16 16:22 | XMS_ITS | Clinical Summary ---
Author Organization [facility] Address [address] [place] [address] Phone Care Team Providers Care Curriculum Coordinator Name Role Phone Outside, Provider Unavailable [phone] Conditions or Problems Problem Name Problem Code Onset Date Status Entry Date Provider Comment Standard Description Annotate INFECTION FOLLOWING A PROCEDURE, INITIAL ENCOUNTER T81.4xxA (ICD-10-CM) 05/30 Active 06/15 Ramesh Garcia MD Infection following a procedure, initial encounter *AFTRCR FOLLOW SRG MUSCULOSKELE ROSELINE SYSTEM NEC Z48.89 (ICD-10-CM) 06/13 Active 06/13 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 Encounter for other specified surgical aftercare DDD, LUMBOSACRAL SPINE WITH RADICULOPATH Y [id number] (SNOMED CT) 05/11 Active 05/16 Ramesh Garcia MD Lumbosacral radiculopathy HERNIATED LUMBAR DISK WITH RADICULOPATH Y [id number] (SNOMED CT) 05/03 Active 05/03 Ramesh Garcia MD Lumbar disc prolapse with radiculopathy NECK PAIN, CHRONIC [id number] (SNOMED CT) 04/26 Active 04/26 Janet Ko MA Chronic neck pain HERNIATED LUMBAR DISC 914318638 (SNOMED CT) 01/21 Active 01/21 Azeem Bartlett MA Prolapsed lumbar intervertebral disc LUMBAR RADICULOPATH Y, LEFT 951857136 (SNOMED CT) 12/22 Active 12/22 Azeem Bartlett MA Lumbar radiculopathy Medications Medication Instructions Start Date Stop Date Generic Name NDC Provider NORCO 5-325 MG ORAL TABLET 1 tid HYDROCODONE-ACETA MINOPHEN [id number] Ramesh Naylor MD NORCO 5-325 MG ORAL TABLET 1 tid HYDROCODONE-ACETA MINOPHEN [id number] Ramesh Naylor MD NORCO 10-325 MG ORAL TABLET 1 tid HYDROCODONE-ACETA MINOPHEN [id number] Ramesh Naylor MD CYCLOBENZAPRINE HCL 10 MG TABS [facility] CYCLOBENZAPRINE HCL [id number] Azeem Bartlett MA IBUPROFEN 800 MG TABS [facility] IBUPROFEN [id number] Azeem Bartlett MA LEVO-T 112 MCG TABS [facility] LEVOTHYROXINE SODIUM [id number] Azeem Bartlett MA Medications Administered No information available. Allergies, Adverse Reactions, Alerts Observed No Known Drug Allergies at Results No information available. Plan of Care Type Date Detail Pending order MRI Cervical Pending order MRI Cervical Pending order MRI Lumbar Pending order BRIEN -- x 2 injec tions then follow up with PM&R Procedures Code Procedure Name Date Entry Date [facility]-[id number] Flu Shot Previously Received [facility]-[id number] Medications Documented 1124F No ACP/POA documented but discussed 03/03 G8427 Medication Reconcili ation Completed CPT-G8427 G8730 Pain Assessment posi tive with follow up plan G8417 BMI above normal, f/u plan documented 201 10/02/09 1036F No tobacco use currently 201 10/02/09 [id number] No pneumococcal vaccine received; no reas on G8483 No flu shot received; allergy etc. 05/03 10627 MRI Lumbar Spine 1124F No ACP/POA documented but discussed 02/24 G8427 Medication Reconcili ation Completed CPT-G8427 G8730 Pain Assessment posi tive with follow up plan G8417 BMI above normal, f/u plan documented 201 10/02/02 1036F No tobacco use currently 201 10/02/02 7256H8H No pneumococcal vaccine received; no reas on G8483 No flu shot received; allergy etc. 04/26 [facility]-[id number] Medications Documented G8427 Medication Reconcili ation Completed CPT-G8427 G8730 Pain Assessment posi tive with follow up plan G8417 BMI above normal, f/u plan documented 201 10/01/30 1036F No tobacco use currently 201 10/01/30 6706Y3E No pneumococcal vaccine received; no reas on G8483 No flu shot received; allergy etc. 1124F No ACP/POA documented but discussed 02/21 [facility]-[id number] Medications Documented G8427 Medication Reconcili ation Completed CPT-G8427 G8730 Pain Assessment posi tive with follow up plan G8417 BMI above normal, f/u plan documented 201 09/30/29 1036F No tobacco use currently 201 09/30/29 2619O6O No pneumococcal vaccine received; no reas on G8483 No flu shot received; allergy etc. 01/21 1124F No ACP/POA documented but discussed 01/21 1124F No ACP/POA documented but discussed 12/22 G8483 No flu shot received; allergy etc. 12/22 [id number] No pneumococcal vaccine received; no reas on 1036F No tobacco use currently 201 09/29/30 G8417 BMI above normal, f/u plan documented 201 09/29/30 G8730 Pain Assessment posi tive with follow up plan G8427 Medication Reconcili ation Completed CPT-G8427 [id number] Medications Documented Vital Signs Date Name Value Unit Description BMI (Body Mass Index) 50.84 kg/m2 Bod y Mass Index (Ratio) BP Diastolic 78 mm[Hg] blood pressu re, diastolic BP Systolic 134 mm[Hg] blood pressur e, systolic Heart Rate 84 /min pulse rate Height 66 [in_us] height E&M Weight Measured 315 [lb_av] weight E& M Weight Measured 315 [lb_av] weight E& M Immunizations No information available. Advance Directives No information available.
--- NOTE | 2024-11-16 16:23 | PC.NURSE ---
1623hrs- patient placed on NC @ 3lpm with administration of medication.
[2024-11-16 16:24] LABS: VBG PH 7.38 mmol/L (7.31-7.41)
[2024-11-16 16:25] LABS: Lactate Venous 1.3 mmol/L (0.4-2.0); VBG HCO3 22.8 mmol/L (23-30); VBG PCO2 39.2 mmol/L (35-51); VBG PO2 49.0 mmol/L (28-40)
--- OUTSIDE RECORDS SUMMARY | 2024-11-16 16:25 | XMS_ITS | Continuity of Care Document ---
Author Organization 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 [address] Abdulkadir Montoya MD Medication Refill 11/12/2024 11:30 AM EDT Office Visit [facility] Urogynecology [address] [address] Nicolette Phillips PA-C History of pelvic surgery (Primary Dx); History of repair of rectocele; History of suburethral sling procedure 11/06/2024 12:23 PM EDT - 11/06/2024 3:24 PM EDT Emergency [facility] Emergency [address] [place] [address] Corazon Salvador MD Right leg pain (Primary Dx); Right hip pain Discharge Disposition: Home or Self Care 11/02/2024 Refill [facility] [address] [place] [address] Abdulkadir Montoya MD Medication Refill 10/30/2024 Results Follow-Up [facility] [address] [place] [address] Arminda Wilson APRN MM MAMMO DIGITAL TRACIE SCREEN BILAT 10/30/2024 9:25 AM EDT - 10/30/2024 11:59 PM EDT Hospital Encounter [address] [place] [address] Arminda Wilson APRN Encounter for screening mammogram for malignant neoplasm of breast Discharge Disposition: Home or Self Care 10/18/2024 Refill [facility] [place] [facility] [address] [place] [address] Abdulkadir Montoya MD Medication Refill 10/16/2024 Refill [place] [address] [place] [address] Abdulkadir Montoya MD Medication Refill 10/07/2024 Results Follow-Up [facility] Diabetes [place] [address] [facility] [address] [place] [address] Judith Lomax MD THYROID STIMULATING HORMONE 10/07/2024 Refill SEP [facility] [address] [place] [address] Arminda Wilson APRN Medication Refill 10/07/2024 8:30 AM EDT - 10/07/2024 11:59 PM EDT Hospital Encounter [facility] [address] 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 [address] Arminda Wilson APRN Medication Refill 09/17/2024 Refill SEP [address] [place] [address] Abdulkadir Montoya MD Medication Refill 09/17/2024 Refill SEP [address] [place] [address] Abdulkadir Montoya MD Medication Refill 09/16/2024 Travel 09/16/2024 9:44 AM EDT - 09/16/2024 1:14 PM EDT Emergency [place] [address] [facility] [place] [address] Abdiel Barclay MD Acute costochondritis (Primary Dx) Discharge Disposition: Home or Self Care 09/16/2024 Nurse Triage SEP Nurse Now [facility] [place] [address] Tawny Mo RN 09/13/[address] [place] [address] Abdulkadir Montoya MD Other (FYI: Pt having muscle spasm); Patient Returning Call ( pt son called to say that they took her to the ED ) 09/11/2024 Refill [facility] [address] [facility] [address] [place] [address] Yanick Odonnell APRN Medication Refill 09/10/2024 Refill SEP [address] [place] [address] Abdulkadir Montoya MD Medication Refill 09/08/2024 Refill SEP [address] [place] [address] Abdulkadir Montoya MD Medication Refill; Central Patient Navigator Outreach (Med Refill 30/) 09/03/2024 2:30 PM EDT Clinical Support [place] [address] [address] Reji Oleary, MA Stress reaction of left foot, initial encounter (Primary Dx); Sprain of tarsometatarsal ligament of left foot, initial encounter 09/03/2024 11:00 [place] [address] Leonides Stroud, DPM Stress reaction of left foot, initial encounter; Peroneal tendinitis of left lower extremity 09/03/2024 10:45 [place] [address] Leonides Stroud, DPM Stress reaction of left foot, initial encounter; Peroneal tendinitis of left lower extremity 09/03/2024 10:30 [place] [address] Leonides Stroud, DPM Sprain of tarsometatarsal ligament of left foot, initial encounter (Primary Dx); Stress reaction of left foot, initial encounter; Left foot pain 08/29/2024 Refill [facility] [place] [address] [place] [address] Arminda Wilson APRN Medication Refill; Central Patient Navigator Outreach (Med Refill 30/) 08/20/2024 3:15 PM EDT Office Visit [facility]gent Care [facility] [address] [address] Yanick Odonnell APRN Stress reaction of left foot, initial encounter (Primary Dx); Peroneal tendinitis of left lower extremity; Painful os peroneum syndrome 08/20/2024 Travel 08/20/2024 1:23 PM EDT - 08/20/2024 3:03 PM EDT Emergency [facility] Emergency [place] [place] [address] Thor Conway MD Foot pain, left (Primary Dx) Discharge Disposition: Home or Self Care 08/13/[address] [place] [address] Abdulkadir Montoya MD Medication Refill 08/13/2024 Refill [facility] Urogynecology [address] [phone] Elmira Mendoza MD Medication Refill 08/09/2024 Orders Only [address] [place] [address] Yelitza Arreaga MA 08/08/2024 Travel 08/08/2024 3:00 PM EDT Office Visit [facility] [address] [facility] [address] [place] [address] Judith Lomax MD 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 (Primary Dx); Class 3 severe obesity due to excess calories with serious comorbidity and body mass index (BMI) of 60.0 to 69.9 in adult 07/24/2024 Refill [place] [address] [place] [address] Katie, Arminda, COAL SAMPLE TESTER Medication Refill 07/24/[address] [place] [address] Sidman, Arminda, COAL SAMPLE TESTER Medication Refill 07/19/2024 Travel 07/19/2024 11:30 AM EDT Office Visit [facility] Sujata [address] [place] [address] Abdulkadir Montoya MD Acute bacterial sinusitis (Primary Dx) 07/18/2024 Refill [facility] [address] [place] [address] Sidman, Arminda, COAL SAMPLE TESTER Medication Refill 07/16/2024 10:10 AM EDT - 07/16/2024 11:59 PM EDT Hospital Encounter [facility] [address], [place] [id number] 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 Discharge Disposition: Home or Self Care 07/14/2024 Refill SEP [address] [place] [address] Abdulkadir Montoya MD Medication Refill 07/05/2024 Refill SEP [address] [place] [address] Abdulkadir Montoya MD Medication Refill 06/17/[address] [place] [address] Abdulkadir Montoya MD Medication Refill 06/08/[address] [place] [address] Abdulkadir Montoya MD Medication Refill 06/07/2024 Travel 06/07/2024 11:45 AM EST Office Visit [address] [place] [address] Katie, Arminda, COAL SAMPLE TESTER Viral URI with cough (Primary Dx); Body aches 06/03/[address] [place] [address] Sidman, Arminda, COAL SAMPLE TESTER Medication Refill 05/22/2024 Travel 05/22/2024 11:45 AM EST Office Visit [address] [place] [address] Katie, Arminda, COAL SAMPLE TESTER Rhinosinusitis (Primary Dx); Nasal congestion 05/19/[address] [place] [address] Abdulkadir Monotya MD Medication Refill 05/19/2024 Refill SEP [address] [place] [address] Abdulkadir Montoya MD Medication Refill 05/15/2024 Travel 05/15/2024 11:00 AM EST Office Visit [facility] Urogynecology [address] [phone] Nicolette Phillips PA-C Postoperative examination (Primary Dx); Female cystocele; Rectocele; Stress incontinence in female; Dysuria 05/14/2024 Travel 05/14/2024 2:20 PM EST Office Visit [facility] Sujata [facility] [address] [place] [address] Abdulkadir Montoya MD Acute cystitis with hematuria (Primary Dx) 05/07/2024 Refill [facility] [place] [address] [place] [address] Abdulkadir Montoya MD Medication Refill 05/02/2024 1:03 PM EST - 05/02/2024 11:59 PM EST Hospital Encounter [address] [place] [address] Sidman, Arminda, COAL SAMPLE TESTER Abdominal pain, LUQ (left upper quadrant) Discharge Disposition: Home or Self Care 04/28/2024 Orders Only [facility] Sujata [facility] [address] [place] [address] Katie, Arminda, COAL SAMPLE TESTER Abdominal pain, LUQ (left upper quadrant) (Primary Dx) 04/26/2024 Travel 04/26/2024 1:15 PM EST Office Visit [facility] Sujata [address] [place] [address] Katie, Arminda, COAL SAMPLE TESTER Abdominal pain, LUQ (left upper quadrant) (Primary Dx); Elevated glucose 04/19/2024 Refill [facility] Sujata [address] [place] [address] Abdulkadir Montoya MD Medication Refill 04/14/2024 Refill [facility] [address] [facility] [address] [place] [address] Judith Lomax MD Medication Refill 04/13/[address] [place] [address] Abdulkadir Montoya MD Medication Refill 04/10/[address] [place] [address] Beverly Bradley APRN Medication Refill 04/05/2024 Telephone [facility] Urogynecology [address] [address] Jessi Leno LPN Post-op Call 04/04/2024 Travel 04/04/2024 1:40 PM EST - 04/04/2024 3:25 PM EST Surgery [facility] [address] [place] [address] Elmira Mendoza MD ANTERIOR AND POSTERIOR REPAIR (CYSTOCELE AND RECTOCELE REPAIR) 04/04/2024 12:20 PM EST Anesthesia Event [facility] [address] [place] [address] Wanda Miranda MD Zehnder, Wende, APRN 04/04/2024 10:44 AM EST - 04/04/2024 5:06 PM EST Hospital Encounter [facility] SAME DAY SURGERY [address] [place] [address] Elmira Mendoza MD Female cystocele; Rectocele; Stress incontinence in female Discharge Disposition: Home or Self Care 04/03/2024 Refill [facility] [address] [place] [address] Beverly Bradley APRN Medication Refill 04/02/2024 10:00 AM EST Office Visit [address] [place] [address] Arminda Wilson APRN Personal history of asthma (Primary Dx) 04/01/2024 Travel 03/28/2024 Orders Only [facility] Urogynecology [address] [address] Jessi Leon LPN Female cystocele (Primary Dx); Rectocele; Stress incontinence in female 03/28/2024 Telephone [facility] [address] [address] Jessi Leon LPN Pre-op Call 03/28/2024 Telephone EDG PRE-ADMIT TESTING [facility] [address] Rae Dawn, JEREL Pre-op Call 03/26/2024 Refill [facility] [place] [address] [place] [address] Abdiel Lucas MD Medication Refill 03/25/2024 Refill [facility] [place] [address] [place] [address] Abdulkadir Montoya MD Medication Refill 03/22/2024 Travel 03/19/2024 Travel 03/19/2024 9:15 AM EST Office Visit [facility] [address] [place] [address] Arminda Wilson APRN Hospital discharge follow-up (Primary Dx); Mild intermittent asthma with acute exacerbation; Intravenous infiltration, subsequent encounter 03/14/2024 6:56 PM EST - 03/14/2024 7:[address] [facility] [place] [address] Blessing Rios MD Hand swelling (Primary Dx) Discharge Disposition: Home or Self Care 03/14/2024 Nurse Triage [facility] Now [address] [place] [address] Silas Rodriguez, JEREL 03/14/2024 Travel 03/14/2024 1:47 PM EST - 03/14/2024 4:[address] [facility] [place] [address] Ce Philippe DO Mild intermittent asthmatic bronchitis with acute exacerbation (Primary Dx) Discharge Disposition: Home or Self Care 03/13/2024 Refill SEP [facility] [address] [place] [address] Abdulkadir Montoya MD Medication Refill 03/13/2024 Travel 03/13/2024 1:15 PM EST Office Visit [address] [place] [address] Arminda Wilson APRN Pre-op examination (Primary Dx); Female cystocele; Rectocele; Stress incontinence in female; Post-operative nausea and vomiting; Bronchitis 03/12/[address] [place] [address] Abdulkadir Montoya MD Medication Refill 02/28/2024 Travel 02/28/2024 1:45 PM EST Office Visit [address] [place] [address] Arminda Wilson APRN Bronchitis (Primary Dx) 02/27/2024 Travel 02/27/[address] [place] [address] Abdiel Lucas MD Medication Refill 02/23/[address] [place] [address] Abdulkadir Montoya MD Medication Refill 02/23/[address] [place] [address] Arminda Wilson APRN Medication Refill 02/14/[address] [place] [address] Abdulkadir Montoya MD Medication Refill 02/14/[address] [place] [address] Abdulkadir Montoya MD Medication Refill 02/09/2024 1:40 PM EDT Office Visit [facility] [address] [facility] [address] [place] [address] Judith Lomax MD Hypothyroidism due to Conchsi's thyroiditis (Primary Dx); Class 3 severe obesity due to excess calories with serious comorbidity and body mass index (BMI) of 60.0 to 69.9 in adult (HCC) 02/05/2024 10:26 AM EDT - 02/05/2024 11:59 PM EDT Hospital Encounter [facility] [address] [place] [address] 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 Discharge Disposition: Home or Self Care 02/04/2024 Travel 02/01/2024 Telephone [facility] U[facility] [address] [address] Jessi Leon LPN Surgery Scheduling 02/01/2024 Refill [facility]P [place] [address] [place] [address] Abdulkadir Montoya MD Medication Refill 01/31/2024 Refill [facility]P [place] [address] [place] [address] Abdiel Lucas MD Medication Refill 01/24/2024 Telephone [facility] [address] [address] Mary Vargas NA Other 01/24/2024 2:30 PM EDT Office Visit [facility] Urogynecology [address] [address] Elmira Mendoza MD Female cystocele (Primary Dx); Rectocele; Stress incontinence in female 01/23/2024 Travel 01/17/2024 Refill [facility] [address] [place] [address] Arminda Wilson APRN Medication Refill 12/27/2023 Refill [facility]P [place] [address] [place] [address] Abdulkadir Montoya MD Medication Refill 12/24/2023 Refill SEP [facility] [address] [place] [address] Abdiel Lucas MD Medication Refill 12/21/2023 9:20 AM EDT Office Visit [address] [place] [address] Abdulkadir Montoya MD YNES positive (Primary Dx) 12/20/2023 Travel 12/17/[address] [place] [address] Abdulkadir Montoya MD Medication Refill 12/14/[address] [place] [address] SidmanArminda alvarado, COAL SAMPLE TESTER Medication Refill 12/12/2023 10:50 AM EDT Clinical Support [address] [place] [address] Kristin Acevedo Joint swelling 12/11/2023 Travel 12/11/2023 4:20 PM EDT Office Visit [address] [place] [address] Abdulkadir Montoya MD Joint swelling (Primary Dx) 11/29/[address] [place] [address] Abdiel Lucas MD Medication Refill 11/20/[address] [place] [address] Abdulkadir Montoya MD Medication Refill 11/19/[address] [place] [address] Katie, Arminda, COAL SAMPLE TESTER Medication Refill 11/03/2023 Travel 11/03/2023 11:15 AM EDT Office Visit [address] [place] [address] Katie, Arminda, COAL SAMPLE TESTER COVID-19 virus detected (Primary Dx); Acute cough 11/01/2023 Travel 11/01/2023 12:40 PM EDT Office Visit [facility] [place] [address] [facility] [address] [place] [address] Judith Lomax MD 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 [address] Abdulkadir Montoya MD Medication Refill 10/23/2023 Refill [facility] [place] [address] [place] [address] Abdiel Lucas MD Medication Refill 10/23/2023 Refill [facility] [place] [address] [place] [address] Arminda Wilson APRN Medication Refill 10/23/2023 Refill [facility] [place] [address] [place] [address] Abdulkadir Montoya MD Medication Refill 10/22/2023 Refill [facility] [place] [address] 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 Discharge Disposition: Home or Self Care 10/10/2023 11:39 AM EDT - 10/10/2023 11:59 PM EDT Hospital Encounter [facility] [address] [place] [address] Costochondritis; Bronchitis Discharge Disposition: Home or Self Care 10/10/2023 Travel 10/10/[address] [place] [address] Abdulkadir Montoya MD 911/Red Flag (declined emergency services/scheduled appt today) 10/10/2023 11:20 AM EDT Office Visit [address] [place] [address] Aracely Montoya MD Costochondritis (Primary Dx); Bronchitis 10/03/2023 8:30 AM EDT Office Visit [facility] Urogynecology [address] [address] Elmira Mendoza MD Female cystocele (Primary Dx); Rectocele; Stress incontinence in female; Vaginal atrophy 10/02/2023 Travel 09/26/[address] [place] [address] Jj Garcia MD Medication Refill 09/24/[address] [place] [address] Arminda Wilson APRN Medication Refill 09/23/[address] [place] [address] Abdiel Lucas MD Medication Refill 09/22/2023 Orders Only [address] [place] [address] Abdulkadir Montoya MD Medication management (Primary Dx) 09/21/2023 Travel 09/21/2023 4:00 PM EDT Office Visit [address] [place] [address] Abdulkadir Montoya MD Acute midline low back pain without sciatica (Primary Dx) 09/13/2023 2:50 PM EDT Office Visit [facility] [address] [address] Genaro Campa MD Pressure sensation in both ears (Primary Dx); Abnormal auditory perception, bilateral; Ear pressure, right 09/08/2023 Refill [facility] [place] [address] [place] [address] Nicolette Lomeli MD Medication Refill 09/06/2023 Travel 09/06/2023 9:00 AM EDT Office Visit [place] [address] [place] [address] Crista Briseno DO Hospital discharge follow-up (Primary Dx); Ear pressure, right; Screening for colon cancer; Female bladder prolapse 09/04/2023 Patient Outreach [facility] [address] [place] [address] Saige Garrett RN Hospital Follow Up; Care Transition; CM - Medication Reconciliation 09/01/2023 11:33 AM EDT - 09/02/2023 11:49 AM EDT Hospital Encounter [facility] [address] [place] [address] Daniel García MD Alexis, Jacques Feres, MD Non-recurrent acute suppurative otitis media of right ear without spontaneous rupture of tympanic membrane (Primary Dx); Mild intermittent asthma, unspecified whether complicated Discharge Disposition: Home or Self Care 09/01/2023 Travel 08/28/2023 Travel 08/28/2023 11:30 AM EDT Office Visit [facility] [place] [address] [place] [address] Abdulkadir Montoya MD Acute bacterial sinusitis (Primary Dx) 08/23/2023 Refill [facility] [place] [address] [place] [address] Arminda Wilson APRN Medication Refill 08/23/2023 Refill [facility] [place] [address] [place] [address] Abdiel Lucas MD Medication Refill 08/23/2023 Refill [facility] [place] [address] [place] [address] Abdiel Lucas MD Medication Refill 08/23/2023 Refill SEP [address] [place] [address] Katie, Arminda, COAL SAMPLE TESTER Medication Refill 08/21/2023 12:04 PM EDT - 08/21/2023 11:59 PM EDT Hospital Encounter [facility] [address] 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 Discharge Disposition: Home or Self Care 08/03/2023 Refill SEP [address] [place] [address] Nicolette Lomeli MD Medication Refill 07/30/[address] [place] [address] Sidman, Arminda, COAL SAMPLE TESTER Medication Refill 07/29/[address] [place] [address] Abdiel Lucas MD Medication Refill 07/29/2023 Refill SEP [address] [place] [address] Katie, Arminda, COAL SAMPLE TESTER Medication Refill 07/12/2023 3:45 PM EDT Office Visit [facility] [address] [place] [address] Sidman, Arminda, COAL SAMPLE TESTER BPV (benign positional vertigo), unspecified laterality (Primary Dx) 07/12/2023 Travel 07/12/2023 10:30 AM EDT Office Visit [facility] [address] [place] [address] Roderick Brunner MD Asteatotic dermatitis (Primary Dx) 06/30/2023 Travel 06/30/2023 1:00 PM EST Office Visit [address] [place] [address] Judith Lomax MD 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 [place], [place] [address] Katie, Arminda, COAL SAMPLE TESTER Medication Refill 06/28/[address] [place], [place] [address] Abdiel Lucas MD Medication Refill 06/16/2023 11:08 AM EST - 06/16/2023 11:59 PM [facility] Hospital Encounter [facility] [address] [place] [address] Primary hypothyroidism Discharge Disposition: Home or Self Care 06/02/2023 Travel 06/02/2023 11:10 AM EST Office Visit [address] [place] [address] Nicolette Lomeli MD Cellulitis of leg, right (Primary Dx) 06/02/[address] [place] [address] Abdulkadir Montoya MD Appointment Needed 06/01/[address] [place] [address] Nicolette Lomeli MD Medication Refill 05/30/[address] [place] [address] Katie, Arminda, COAL SAMPLE TESTER Medication Refill 05/30/[address] [place] [address] Nicolette Lomeli MD Medication Refill 05/29/2023 Refill SEP [facility] [address] [place] [address] Arminda Wilson APRN Medication Refill 05/29/2023 Refill [facility] [place] [address] [place] [address] Abdiel Lucas MD Medication Refill 05/25/2023 Orders Only [facility] Sleep [facility] [address] [place] [address] Kristen Louie MD Obstructive sleep apnea (Primary Dx) 05/22/2023 Refill [facility] [place] [address] [place] [address] Abdulkadir Montoya MD Medication Refill 05/17/2023 Orders Only [facility] Sleep Medicine [address] [place] [address] Kristen Louie MD Obstructive sleep apnea (Primary Dx) 05/09/2023 11:00 AM EST Office Visit [facility] Sleep Medicine [address] [address] [address] Kristen Louie MD Obesity, morbid, BMI 50 or higher ([facility]) (Primary Dx); Obstructive sleep apnea 05/04/2023 Travel 05/02/2023 5:16 PM EST - 05/02/2023 11:59 PM EST Hospital Encounter [facility] [address] [place] [address] Nicolette Lomeli MD Cough, persistent Discharge Disposition: Home or Self Care 05/02/2023 12:00 PM EST Office Visit [facility] [address] [place] [address] Harmony Romo PA Drug allergy (Primary Dx); Asthma in adult without complication, unspecified asthma severity, unspecified whether persistent; Urticaria; Angioedema, initial encounter; Seasonal and perennial allergic rhinitis 05/01/2023 [address]ill [facility] [address] [place] [address] Abdulkadir Montoya MD Medication Refill 05/01/2023 Refill [place] [address] [place] [address] Abdiel Lucas MD Medication Refill 05/01/2023 Refill SEP [address] [place] [address] Arminda Wilson APRN Medication Refill 04/27/2023 Travel 04/26/2023 1:40 PM EST Office Visit [address] [place] [address] Nicolette Lomeli MD Subacute cough (Primary Dx); Peripheral edema; Cough, persistent 04/21/2023 Orders Only [facility] Sleep Disorder [place] [id number] Kristen Louie MD Obstructive sleep apnea (Primary Dx) 04/20/2023 Refill SEP [address] [place] [address] Abdulkadir Montoya MD Medication Refill 04/20/2023 7:00 PM EST - 04/20/2023 11:59 PM EST Hospital Encounter [facility] Sleep Disorder [address] [address] Obstructive sleep apnea (Primary Dx); Excessive sleepiness; Obesity, morbid, BMI 50 or higher (HCC); TANIA (obstructive sleep apnea); Primary snoring Discharge Disposition: Home or Self Care 04/18/2023 Orders Only [facility] Diabetes [place] [address] [address] Judith Lomax MD 04/14/2023 3:16 PM EST - 04/14/2023 11:59 PM EST Hospital Encounter [facility] [address] [place] [address] Primary hypothyroidism Discharge Disposition: Home or Self Care 04/14/2023 3:00 PM EST Office Visit [facility] Diabetes [place] [address] [facility] [address] [place] [address] Judith Lomax MD Primary hypothyroidism (Primary Dx); Conchis's disease 04/13/2023 Travel 04/07/2023 Travel 04/07/2023 10:20 AM EST Office Visit [place] [address] [place] [address] Abdulkadir Montoya MD Cough, unspecified type (Primary Dx) 04/06/2023 Patient Outreach [facility] [address] [facility] [address] Babita Raymond, JEREL Hospital Follow Up; Care Transition; CM - Medication Reconciliation 04/06/2023 Refill [place] [address] [place] [address] Arminda Wilson, COAL SAMPLE TESTER Medication Refill 04/05/2023 Refill [place] [address] [place] [address] Abdiel Lucas MD Medication Refill 04/05/2023 Refill [place] [address] [place] [address] Katie, Arminda, COAL SAMPLE TESTER Medication Refill 04/03/2023 12:40 PM EST - 04/05/2023 5:19 PM EST Hospital Encounter [facility] [address] [place] [address] [place] [address] Ben Li MD Gaston, Richard L, MD Multifocal pneumonia (Primary Dx); Hypoxia Discharge Disposition: Home or Self Care 04/03/2023 Orders Only [place] [address] [place] [address] Abdulkadir Montoya MD Rhinosinusitis; Acute pain of left knee 04/03/2023 Travel 03/22/2023 Travel 03/22/2023 3:00 PM EST Office Visit [place] [address] [place] [address] Katie, Arminda, COAL SAMPLE TESTER Bilirubin in urine (Primary Dx); Dark urine 03/22/2023 Refill [place] [address] [place] [address] Sidman, Arminda, COAL SAMPLE TESTER Medication Refill 03/19/2023 Refill [place] [address] [place] [address] Sidman, Arminad, COAL SAMPLE TESTER Medication Refill 03/19/2023 Refill [place] [address] [place] [address] Sidman, Arminda, COAL SAMPLE TESTER Medication Refill 03/10/[address] [place] [address] Sidman, Arminda, COAL SAMPLE TESTER Medication Refill 03/07/[address] [place] [address] Abdiel Lucas MD Medication Refill 03/06/2023 9:40 AM EST Office Visit [address] [place] [address] Abdulkadir Montoya MD Acute bronchitis, unspecified organism (Primary Dx) 03/02/2023 2:15 PM EST Office Visit [facility] [address] [place] [address] Pat Castro MD Positive YNES (antinuclear antibody) (Primary Dx); Skin eruption; Obesity, morbid, BMI 50 or higher (HCC); Anti-TPO antibodies present; Primary osteoarthritis involving multiple joints Discharge Disposition: Home or Self Care 02/24/2023 Travel 02/24/2023 12:25 PM EDT - 02/24/2023 4:17 PM EDT Emergency [place] [address] [place] [place] [address] Jamaica Thompson MD Allergic reaction, initial encounter (Primary Dx) Discharge Disposition: Home or Self Care 02/16/2023 Refill [facility]P [facility] [address] [place] [address] Abdulkadir Montoya MD Medication Refill 02/14/2023 Travel 02/14/2023 8:33 AM EDT - 02/14/2023 11:59 PM EDT Hospital Encounter [facility] [address] [place] [address] Arminda Wilson APRN Peripheral edema Discharge Disposition: Home or Self Care 02/14/2023 12:00 PM EDT Office Visit [facility] Sleep Medicine [facility] [address] [place] [address] Kristen Louie MD Excessive sleepiness (Primary Dx); Obesity, morbid, BMI 50 or higher (HCC); TANIA (obstructive sleep apnea); Primary snoring 02/09/2023 Refill [facility] [place] [facility] [address] [place] [address] Arminda Wilson APRN Medication Refill 02/09/2023 9:53 AM EDT - 02/09/2023 11:59 PM EDT Hospital Encounter [facility] [address] [place] [address] Positive YNES (antinuclear antibody) Discharge Disposition: Home or Self Care 02/08/2023 2:30 PM EDT Telemedicine [facility] [address] [place] [address] Pat Castro MD Positive YNES (antinuclear antibody) (Primary Dx); Skin eruption; Obesity, morbid, BMI 50 or higher (HCC) 02/02/2023 Refill SEP [facility] [address] [place] [address] Abdiel Lucas MD Medication Refill 01/24/2023 7:00 PM EDT - 01/24/2023 11:59 PM EDT Hospital Encounter [facility] Sleep Disorder Center [address] [place] [address] Excessive sleepiness; Primary snoring; Obstructive sleep apnea; Morbid obesity (HCC) Discharge Disposition: Home or Self Care 01/18/2023 Travel 01/18/2023 Refill SEP [address] [place] [address] Abdulkadir Montoya MD Medication Refill 01/18/2023 2:15 PM EDT Office Visit [address] [place] [address] Katie, Arminda, COAL SAMPLE TESTER Hospital discharge follow-up (Primary Dx); Peripheral edema; Mild intermittent asthma with exacerbation 01/15/2023 3:29 AM EDT - 01/15/2023 5:[address] [facility] [place] [address] Kenia Lindsey MD Mild intermittent asthma without complication (Primary Dx) Discharge Disposition: Home or Self Care 01/06/2023 Telephone [facility] [address] [facility] [address] [place] [address] Pat Castro MD Schedule Appointment 01/06/2023 Refill SEP [address] [place] [address] Abdiel Lucas MD Medication Refill 01/06/2023 Refill SEP [address] [place] [address] Sidman, Arminda, COAL SAMPLE TESTER Medication Refill 12/21/2022 Travel 12/21/[address] [place] [address] Sidman, Arminda, COAL SAMPLE TESTER Medication Refill 12/21/2022 2:45 PM EDT Office Visit [address] [place] [address] Sidman, Arminda, COAL SAMPLE TESTER Chronic midline low back pain with left-sided sciatica (Primary Dx); Medication management; Screening for colon cancer; Dysphagia, unspecified type 12/20/2022 10:45 AM EDT Office Visit [facility] Sleep Medicine [address] [address] Kristen Louie MD Excessive sleepiness (Primary Dx); Primary snoring; Obstructive sleep apnea; Morbid obesity (HCC) 12/19/2022 Refill SEP [address] [place] [address] Abdulkadir Montoya MD Medication Refill 12/17/2022 Refill SEP [address] [place] [address] Katie, Arminda, COAL SAMPLE TESTER Medication Refill 12/17/2022 Refill SEP [address] [place] [address] Abdulkadir Montoya MD Medication Refill 12/08/[address] [place] [address] Abdiel Lucas MD Medication Refill 12/07/2022 3:30 PM EDT Office Visit [address] [place] [address] Katie, Arminda, COAL SAMPLE TESTER Rhinosinusitis (Primary Dx); Suspected sleep apnea 12/06/2022 Travel 12/03/2022 Travel 12/03/2022 7:23 AM EDT - 12/03/2022 11:59 PM EDT Hospital Encounter [address] [place] [address] Sidman, Arminda, COAL SAMPLE TESTER Pharyngeal dysphagia Discharge Disposition: Home or Self Care 11/24/2022 11:30 AM EDT Office Visit [address] [place] [address] Sidman, Arminda, COAL SAMPLE TESTER Pharyngeal dysphagia (Primary Dx); Rash 11/09/[address] [place], [place] [address] Abdiel Lucas MD Medication Refill 11/09/2022 Refill SEP [address] [place] [address] Abdulkadir Montoya MD Medication Refill 11/03/2022 Telephone [facility] [address] [facility] [address] Victoria Lara, Clerical Staff Other 11/01/2022 Telephone [facility] [address] [facility] [address] Victoria Lara, Clerical Staff Other 10/30/2022 Orders Only [address] [place] [address] Sidman, Arminda, COAL SAMPLE TESTER UTI (urinary tract infection), uncomplicated (Primary Dx) 10/28/2022 Telephone [facility] [address] [facility] [address] Victoria Lara, Clerical Staff Other 10/28/2022 11:45 AM EDT Office Visit [address] [place] [address] Sidman, Arminda, COAL SAMPLE TESTER Urinary frequency (Primary Dx); Prediabetes; Obesity, morbid, BMI 50 or higher (HCC); Lumbar pain 10/09/[address] [place] [address] Katie, Arminda, COAL SAMPLE TESTER Medication Refill 10/04/2022 Orders Only [address] [place] [address] Katie, Arminda, COAL SAMPLE TESTER Positive YNES (antinuclear antibody) (Primary Dx) 09/23/[address] [place] [address] Abdulkadir Montoya MD Results 09/23/2022 Orders Only [address] [place] [address] Sidman, Arminda, COAL SAMPLE TESTER 09/22/2022 2:30 PM EDT Office Visit [address] [place] [address] Sidman, Arminda, COAL SAMPLE TESTER Stasis dermatitis of both legs (Primary Dx); Contact dermatitis, unspecified contact dermatitis type, unspecified trigger; Acquired hypothyroidism; Red face 09/21/2022 Travel 09/16/2022 Travel 09/16/2022 2:58 PM EDT - 09/16/2022 11:59 PM EDT Hospital Encounter [facility] [address] [place] [address] Katie, Arminda, COAL SAMPLE TESTER Encounter for screening mammogram for breast cancer Discharge Disposition: Home or Self Care 09/15/2022 Refill SEP [address] [place] [address] Sidman, Arminda, COAL SAMPLE TESTER Medication Refill 09/08/2022 Refill SEP [address] [place] [address] Nicolette Lomeli MD Medication Refill 08/19/2022 2:40 PM EDT Ancillary Procedure [facility] [address] [facility] [address] [place] [address] Kendall Garcia MD Acute pain of left knee 08/19/2022 2:15 PM EDT Office Visit [facility] [address] [address] Kendall Garcia MD Acute pain of left knee (Primary Dx) 08/10/2022 Refill SEP [address] [place] [address] Aracely Montoya MD Medication Refill 08/04/2022 3:00 PM EDT Office Visit SEP [address] [place] [address] Katie, Arminda, COAL SAMPLE TESTER Rash (Primary Dx); Acute pain of left knee; History of COVID-19 08/03/2022 Travel 06/30/2022 Refill SEP [address] [place] [address] Katie, Arminda, COAL SAMPLE TESTER Medication Refill 06/16/[address] [place], [place] [address] Abdulkadir Montoya MD Medication Refill 06/16/[address] [place], [place] [address] Abdulkadir Montoya MD Medication Refill 06/14/2022 1:45 PM EST Office Visit [address] [place] [address] Arminda Wilson APRN Annual physical exam (Primary Dx); Chronic midline low back pain with left-sided sciatica; Medication management; Acquired hypothyroidism; Elevated glucose; Lipid screening; Encounter for screening mammogram for breast cancer; Obesity, morbid, BMI 50 or higher (HCC); Situational anxiety; Dietary counseling; Exercise counseling 06/10/2022 Travel 06/10/[address] [place], [place] [address] Abdulkadir Montoya MD Medication Refill 05/11/[address] [place] [address] Abdiel Lucas MD Medication Refill 05/11/[address] [place], [place] [address] Abdulkadir Montoya MD Medication Refill 05/06/[address] [place] [address] Aracely Montoya MD Medication Refill 05/03/2022 Refill [place] [address] [place] [address] Beverly Hernandez, DO Medication Refill 05/03/2022 Refill [place] [address] [place] [address] Beverly Hernandez, DO Medication Refill 05/03/2022 11:50 AM EST Office Visit [address] [place] [address] Nicolette Lomeli MD Acute bacterial sinusitis (Primary Dx); Acute bronchitis, unspecified organism 05/02/2022 Travel 04/29/2022 Refill [facility] [address] [place] [address] Abdulkadir Montoya MD Medication Refill 04/29/[address] [id number] Beverly Hernandez, DO Medication Refill 04/29/2022 Refill [facility] [place] [address] [place] [address] Abdulkadir Montoya MD Medication Refill 04/29/[address] [address] Beverly Hernandez, DO Medication Refill 04/27/[address] [place] [address] Beverly Hernandez, DO Medication Refill 04/11/[address] [address] Beverly Hernandez, DO Medication Refill 04/11/2022 Refill [place] [address] [place] [address] Arminda Wilson APRN Medication Refill 04/06/2022 Refill SEP [facility] [address] [place] [address] [place] [address] Beverly Hernandez, DO Medication Refill 03/17/2022 Refill [place] [address] [place] [address] Abdiel Lucas MD Medication Refill 03/16/[address] [place] [address] Abdulkadir Montoya MD Medication Refill 03/04/[address] [place] [address] Abdulkadir Montoya MD Medication Refill 03/03/[address] [place] [address] Nicolette Lomeli MD Medication Refill 02/16/[address] [place] [address] Aracely Montoya MD Medication Refill 02/04/[address] [address] Beverly Hernandez, DO Medication Refill 01/05/[address] [place], [facility] Nicolette Lomeli MD Medication Refill 01/05/[address] [place] [address] Arminda Wilson APRN Medication Refill 12/21/[address] [place] [address] Abdulkadir Montoya MD Medication Refill 12/12/[address] [place] [address] Abdiel Lucas MD Medication Refill 11/30/[address] [address] Beverly Hernandez, DO Medication Refill 11/23/2021 Patient Outreach [place] [address] [place] [address] Jazmin Gustafson ED Follow-Up Call 11/23/2021 Travel 11/23/2021 4:12 AM EDT - 11/23/2021 5:16 AM EDT Emergency [facility] [address] [place] [address] Jj Oruorke MD Exacerbation of asthma, unspecified asthma severity, unspecified whether persistent (Primary Dx) Discharge Disposition: Home or Self Care 10/28/2021 Refill [facility] [place] [address] [place] [address] Aracely Montoya MD Medication Refill 09/30/2021 Refill [facility]P [facility] [address] [facility], [place] [address] Beverly Hernandez DO Medication Refill 09/30/2021 Refill [facility] [address] [place] [address] Arminda Wilson APRN Medication Refill 09/30/2021 Refill [facility] [address] [place] [address] Nicolette Lomeli MD Medication Refill 09/08/2021 Refill [facility] [address] [place] [address] Abdulkadir Montoya MD Medication Refill 08/23/2021 Refill [facility] [address] [place] [address] Abdulkadir Montoya MD Medication Refill 08/04/2021 Refill [facility] [place] [address] [place] [address] Aracely Montoya MD Medication Refill 07/16/2021 Travel 07/16/2021 1:20 PM EDT - 07/16/2021 11:59 PM EDT Hospital Encounter [facility] [address], [place] [id number] Well adult exam; Lipid screening Discharge Disposition: Home or Self Care 07/07/[address] [place] [address] Nicolette Lomeli MD Medication Refill 07/02/2021 1:00 PM EST Office Visit [address] [place] [address] Arminda Wilson APRN Well adult exam (Primary Dx); Peripheral edema; Stasis dermatitis of both legs; Cellulitis of leg, left; Lipid screening; Obesity, morbid, BMI 50 or higher (HCC); Chronic midline low back pain with left-sided sciatica; Medication management; Acquired hypothyroidism; Dietary counseling 07/01/2021 Travel 06/29/2021 Orders Only [facility] [address], [place] [address] Yesenia Lazo Acquired hypothyroidism 06/29/2021 Travel 06/29/2021 11:57 AM EST - 06/29/2021 11:59 PM EST Hospital Encounter [facility] [address], [place] [address] Discharge Disposition: Home or Self Care 06/17/[address] [place] [address] Abdulkadir Montoya MD Medication Refill 06/05/[address] [place] [address] Arminda Wilson APRN Medication Refill 06/04/[address] [place] [address] Abdulkadir Montoya MD Medication Refill 05/19/[address] [place] [address] Aracely Montoya MD Medication Refill 05/03/[address] [place] [address] Abdiel Lucas MD Medication Refill 04/29/[address] [place] [address] Abdulkadir Montoya MD Medication Refill 04/15/[address] [place] [address] Nicolette Lomeli MD Medication Refill 04/06/2021 Travel 04/06/2021 10:50 AM EST Office Visit [address] [place] [address] Arminda Wilson APRN Exposure to COVID-19 virus (Primary Dx); Abscess 04/05/[address] [place] [address] Abdulkadir Montoya MD Appointment Needed (Acute-Needs COVID test (exposed last week; no symptoms) & mass under rt armpit x 2 wks) 04/02/[address] [place] [address] Arminda Wilson APRN Medication Refill 03/13/[address] [place] [address] Abdiel Lucas MD Medication Refill 03/13/[address] [place] [address] Abdulkadir Montoya MD Medication Refill 03/04/[address] [place] [address] Abdulkadir Montoya MD Medication Refill 03/04/2021 Refill [facility] [address] [place] [address] Beverly Hernandez DO Medication Refill 02/17/[address] [place] [address] Abdulkadir Montoya MD Medication Refill 02/15/2021 Refill SEP [address] [place] [address] Abdulkadir Montoya MD Medication Refill 02/15/2021 Patient Outreach [facility] [address] [place] [address] Jazmin Gustafson ED Follow-Up Call 02/13/2021 Refill SEP [address] [place] [address] Aracely Montoya MD Medication Refill 02/12/2021 Travel 02/12/2021 12:53 PM EDT - 02/12/2021 4:36 PM EDT [facility] [address] [place] [address] Jj High MD Mild persistent asthma without complication (Primary Dx); Mild asthma with exacerbation, unspecified whether persistent Discharge Disposition: Home or Self Care 02/01/2021 2:30 PM EDT Clinical Support [address] [place] [address] Abdulkadir Montoya MD Suspected COVID-19 virus infection (Primary Dx); Acute bronchitis, unspecified organism 01/30/2021 Refill SEP [address] [place] [address] Beverly Hernandez, DO Medication Refill 01/15/2021 Refill SEP [address] [place] [address] Nicolette Lomeli MD Medication Refill 01/11/2021 10:40 AM EDT Clinical Support [address] [place] [address] Abdulkadir Montoya MD Suspected COVID-19 virus infection (Primary Dx) 01/03/2021 Refill SEP [address] [place] [address] Beverly Hernandez, DO Medication Refill 01/03/[address] [place] [address] Arminda Wilson, EMELY Medication Refill 12/26/[address] [place], [place] [address] Abdulkadir Montoya MD Medication Refill 12/08/[address] [place] [address] Beverly Hernandez, DO Medication Refill 11/19/2020 Orders Only [address] [place] [address] Aracely Montoya MD Acquired hypothyroidism (Primary Dx) 11/18/2020 Travel 11/18/2020 4:00 PM EDT Office Visit [address] [place] [address] Aracely Montoya MD Peripheral neuropathy, idiopathic (Primary Dx); Acquired hypothyroidism 11/17/2020 Travel 11/16/[address] [place] [address] Arminda Wilson, EMELY Medication Refill 11/14/[address] [place] [address] Abdulkadir Montoya MD Medication Refill; Medication Refill 11/12/[address] [place] [address] Beverly Hernandez, DO Medication Refill 11/02/2020 Travel 11/02/2020 3:40 PM EDT Office Visit [address] [address] Beverly Hernandez, DO Encounter for postoperative care (Primary Dx); Hormone replacement therapy (HRT) 10/27/2020 Refill SEP [address] [place] [address] Abdulkadir Montoya MD Medication Refill 10/19/2020 Refill SEP [address] [place] [address] Abdulkadir Montoya MD Medication Refill 10/16/[address] [place] [address] Beverly Hernandez, DO Medication Refill 10/05/2020 Travel 10/05/2020 2:10 PM EDT Office Visit [address] [address] Beverly Hernandez, DO Encounter for postoperative care (Primary Dx); Hot flashes 10/02/2020 Travel 09/24/2020 Travel 09/24/2020 Refill SEP [address] [place] [address] Abdulkadir Montoya MD Medication Refill 09/24/2020 Refill SEP [address] [place] [address] Abdiel Lucas MD Medication Refill 09/24/2020 2:20 PM EDT Office Visit [address] [address] Beverly Hernandez, DO Encounter for postoperative care (Primary Dx); Wound cellulitis 09/21/2020 Travel 09/16/2020 Refill SEP [address] [place] [address] Arminda Wilson, COAL SAMPLE TESTER Medication Refill 09/12/2020 Refill SEP [address] [place] [address] Arminda Wilson, COAL SAMPLE TESTER Medication Refill 09/11/2020 Telephone [place] [address] [place] [address] Angelic Martino, JER[place] Patient Question 09/08/2020 Travel 09/08/2020 1:00 PM EDT Office Visit [facility] [address] [place] [address] Road [address] [place] [address] Manuel Moran MD S/P laparoscopic hysterectomy (Primary Dx); Wound drainage 08/23/2020 Refill [facility] [address] [place] [address] Abdulkadir Montoya MD Medication Refill 08/21/2020 Travel 08/21/2020 Refill [facility] [address] [place] [address] Nicolette Lomeli MD Medication Refill 08/21/2020 11:40 AM EDT Office Visit [facility] [address] [place] [address] Road [address] [place] [address] Beverly Hernandez DO Encounter for postoperative care (Primary Dx); Bladder spasms 08/11/2020 Travel 08/11/2020 8:00 AM EDT - 08/11/2020 10:30 AM EDT Surgery [facility] [address] [place] [address] Beverly Hernandez DO DAVINCI ROBOTIC TOTAL HYSTERECTOMY 08/11/2020 7:55 AM EDT Anesthesia Event [facility] [address] [place] [address] Maximino Lehman MD Merkle Serey, Jennifer L, NP 08/11/2020 6:00 AM EDT - 08/11/2020 1:51 PM EDT Hospital Encounter [facility] POST ANESTHESIA [address] [place] [address] Beverly Hernandez DO Abnormal uterine bleeding (AUB); History of endometrial ablation; Intramural leiomyoma of uterus; Abnormal uterine bleeding (AUB); History of endometrial ablation; Intramural leiomyoma of uterus Discharge Disposition: Home or Self Care 08/07/2020 1:57 PM EDT - 08/07/2020 11:59 PM EDT Hospital Encounter [facility] [address] [place] [address] Covid19, [facility] Pre-op testing; Encounter for laboratory testing for COVID-19 virus Discharge Disposition: Home or Self Care 08/05/2020 10:35 AM EDT - 08/05/2020 11:59 PM EDT Hospital Encounter [facility] PRE-ADMIT TESTING [address] [place] [address] Pat, Johanny Preop testing (Primary Dx) Discharge Disposition: Home or Self Care 08/04/2020 Travel 08/03/2020 Travel 07/30/2020 Refill [facility] [address] [place] [address] Arminda Wilson, COAL SAMPLE TESTER Medication Refill 07/27/2020 Telephone [facility] [address] [address] Beverly Hernandez DO Surgery (SURGERY INFORMATION (HYSTERECTOMY)) 07/23/2020 Travel 07/23/2020 2:20 PM EDT Office Visit [facility] [address] [place] [address] Road [address] [place] [id number] Beverly Hernandez DO Abnormal uterine bleeding (AUB) (Primary Dx); History of endometrial ablation; Intramural leiomyoma of uterus; Vaginal discharge 07/20/2020 Travel 07/20/2020 Refill [facility] [address] [place] [address] Arminda Wilson, COAL SAMPLE TESTER Medication Refill 06/26/2020 Patient Outreach [facility] Transformation [address] [place] [address] Jeromy Winslow LPN ED Follow-Up Call 06/25/2020 Travel 06/25/2020 4:53 PM EST - 06/25/2020 7:[address] [facility] [place] [address] Parveen Syed MD Schott, Jon J, MD Lower abdominal pain (Primary Dx) Discharge Disposition: Home or Self Care 06/22/2020 [place]ill [facility] [place] [address] [place] [address] Arminda Wilson APRN Medication Refill 06/16/2020 Travel 06/16/2020 1:20 PM EST Office Visit [address] [place] [phone] Manuel Moran MD Abnormal uterine bleeding (AUB) (Primary Dx); Intramural leiomyoma of uterus; History of endometrial ablation; Dyspareunia in female; Pelvic pain 06/15/2020 Refill [facility] [place] [address] [place] [address] Abdulkadir Montoya MD Medication Refill 06/10/2020 1:53 PM EST - 06/10/2020 11:59 PM EST Hospital Encounter [facility] [address] [place] [address] Abnormal uterine bleeding (AUB) Discharge Disposition: Home or Self Care 06/10/2020 Travel 06/09/2020 Travel 06/09/2020 10:40 AM EST Office Visit [address] [place] [phone] Manuel Moran MD Abnormal uterine bleeding (AUB) (Primary Dx); Pelvic pain; Dyspareunia in female; Intramural leiomyoma of uterus; Obesity, morbid, BMI 50 or higher (HCC); History of endometrial ablation; History of right salpingo-oophorectomy 06/05/2020 Travel 05/23/2020 Refill [facility] [address] [place] [address] Nicolette Lomeli MD Medication Refill 05/20/2020 Refill [facility] [place] [address] [place] [address] Arminda Wilson COAL SAMPLE TESTER Medication Refill 05/19/2020 Travel 05/19/2020 10:00 AM EST Office Visit [address] [place] [address] Abdulkadir Montoya MD Leg abscess (Primary Dx) 05/18/2020 11:00 AM EST Office Visit [address] [place] [address] Abdulkadir Montoya MD Abscess of left leg (Primary Dx) 05/15/2020 Travel 05/15/2020 2:26 PM EST - 05/15/2020 11:59 PM EST Hospital Encounter [facility] Ultrasound [address] [place] [address] Arminda Wilson APRN Post-menopause bleeding Discharge Disposition: Home or Self Care 05/14/2020 Travel 05/07/2020 4:20 PM EST Office Visit [address] [place] [address] Aracely Montoya MD Moderate asthma with acute exacerbation, unspecified whether persistent (Primary Dx); Cough 05/07/2020 Travel 05/07/[address] [place] [address] Abdulkadir Montoya MD Medication Management (pt is taking Flagyl); Other 05/04/2020 Orders Only [address] [place] [address] SidmanCarrollArminda, COAL SAMPLE TESTER Bacterial vaginitis (Primary Dx) 05/01/[address] [place] [address] Arminda Wilson, COAL SAMPLE TESTER Results 05/01/2020 Orders Only [address] [place] [address] [facility] 04/30/2020 9:30 AM EST Office Visit [address] [place] [address] KatieCarrollArminda, COAL SAMPLE TESTER Well adult exam (Primary Dx); Peripheral neuropathy, idiopathic; Medication management; Post-menopause bleeding; Obesity, morbid, BMI 50 or higher (HCC); Cervical cancer screening; Acquired hypothyroidism; Chronic midline low back pain with left-sided sciatica; Elevated glucose 04/30/2020 Travel 04/29/[address] [place] [address] Abdulkadir Montoya MD Medication Refill 04/27/2020 Refill [facility] [address] [place] [address] Abdulkadir Montoya MD Medication Refill 04/26/[address] [place] [address] Arminda Wilson, COAL SAMPLE TESTER Medication Refill 03/31/[address] [place] [address] Abdulkadir Montoya MD Medication Refill 03/31/[address] [place] [address] Arminda Wilson, COAL SAMPLE TESTER Medication Refill 03/31/[address] [place] [address] Abdiel Lucas MD Medication Refill 03/24/[address] [place] [address] Abdulkadir Montoya MD Medication Refill 03/18/2020 10:40 AM EST Office Visit [address] [place] [address] Arminda Wilson, COAL SAMPLE TESTER Acute bronchitis, unspecified organism (Primary Dx) 03/18/[address] [place] [address] Abdulkadir Montoya MD Appointment Needed (acute) 03/18/2020 Travel 03/02/[address] [place] [address] Katie, Arminda, COAL SAMPLE TESTER Medication Refill 02/01/2020 Refill SEP [address] [place], [place] [address] Sidman, Arminda, COAL SAMPLE TESTER Medication Refill 01/24/2020 Refill SEP [address] [place], [place] [address] Abdulkadir Montoya MD Medication Refill 01/06/2020 Refill SEP [address] [place], [place] [address] Abdulkadir Montoya MD Medication Refill 01/03/2020 Refill SEP [address] [place], [place] [address] Abdulkadir Montoya MD Medication Refill 12/31/2019 Refill SEP [address] [place], [place] [address] Sidman, Arminda, COAL SAMPLE TESTER Medication Refill 12/23/2019 Travel 11/30/2019 Refill SEP [address] [place], [place] [address] Katie, Arminda, COAL SAMPLE TESTER Medication Refill 11/13/2019 Refill SEP [address] [place], [place] [address] Abdulkadir Montoya MD Medication Refill 11/07/2019 Refill SEP [address] [place], [place] [address] Abdulkadir Montoya MD Medication Refill 11/07/2019 Refill SEP [address] [place], [place] [address] Katie, Arminda, COAL SAMPLE TESTER Medication Refill 10/28/2019 Refill SEP [address] [place], [place] [address] Sidman, Arminda, COAL SAMPLE TESTER Medication Refill 10/17/2019 Refill SEP [address] [place], [place] [address] Katie, Arminda, COAL SAMPLE TESTER Medication Refill 10/16/2019 Refill SEP [address] [place] [address] Abdulkadir Montoya MD Medication Refill 10/04/[address] [place] [address] Abdulkadir Montoya MD Medication Refill 10/02/[address] [place] [address] Abdiel Lucas MD Medication Refill 09/26/[address] [place] [address] Katie, Arminda, COAL SAMPLE TESTER Medication Refill 09/19/[address] [place] [address] Abdulkadir Montoya MD Medication Refill 09/12/2019 Travel 09/12/2019 1:40 PM EDT Office Visit [address] [place] [address] Aracely Montoya MD Abscess of arm, right (Primary Dx) 09/12/[address] [place] [address] Abdulkadir Montoya MD Schedule Appointment (needs appt) 09/09/2019 Patient Outreach [place] [address] [place] [address] Deb Sun ED Follow-Up Call; ED Follow-Up Call 09/09/[address] [place] [address] Abdulkadir Montoya MD Appointment Needed (acute) 09/08/2019 Travel 09/08/2019 3:21 PM EDT - 09/08/2019 5:[address] [facility] [place] [address] Thor Conway MD Abscess (Primary Dx) Discharge Disposition: Home or Self Care 09/07/2019 Refill SEP [address] [place] [address] Sidman, Arminda, COAL SAMPLE TESTER Medication Refill 09/06/2019 Travel 09/06/2019 2:20 PM EDT Office Visit [address] [place] [address] Abdulkadir Montoya MD Lymphadenitis (Primary Dx) 08/23/2019 3:40 PM EDT Office Visit [address] [place] [address] Sidman, Arminda, COAL SAMPLE TESTER Chronic midline low back pain with left-sided sciatica (Primary Dx) 08/23/2019 Travel 08/23/[address] [place] [address] Abdulkadir Montoya MD Symptom Call (pain in her lower back down legs to her feet, muscle spasms) 07/07/[address] [place] [address] Abdulkadir Montoya MD Medication Refill 07/07/2019 Refill SEP [address] [place] [address] Katie, Arminda, COAL SAMPLE TESTER Medication Refill 06/30/[address] [place] [address] Katie, Arminda, COAL SAMPLE TESTER Medication Refill 06/28/2019 1:20 PM EST Clinical Support [address] [place] [address] Kristin Acevedo Acquired hypothyroidism 06/28/2019 Travel 06/12/2019 4:40 PM EST Office Visit [address] [place] [address] Katie, Arminda, COAL SAMPLE TESTER Viral URI (Primary Dx); Body aches; Chronic midline low back pain with left-sided sciatica 06/12/2019 Travel 05/27/[address] [place] [address] Abdulkadir Montoya MD Medication Refill (Hot flashes) 05/16/2019 10:00 AM EST Office Visit [address] [place] [address] Sidman, Arminda, COAL SAMPLE TESTER Yeast dermatitis (Primary Dx) 05/02/2019 Refill SEP [address] [place] [address] Abdulkadir Montoya MD Medication Refill 04/23/2019 10:20 AM EST Office Visit [address] [place] [address] Abdulkadir Montoya MD Acute bronchitis, unspecified organism (Primary Dx); Acute pain of left knee; Peripheral neuropathy, idiopathic 04/23/[address] [place] [address] Abdulkadir Montoya MD Appointment Needed (Pain in Right lung when breathing, coughing, chills and SOB since /no bal) 04/06/[address] [place] [address] Abdulkadir Montoya MD Medication Refill 04/05/[address] [place] [address] Abdiel Lucas MD Medication Refill 04/04/[address] [place] [address] Katie, Arminda, COAL SAMPLE TESTER Medication Refill 04/02/[address] [place] [address] Sidman, Arminda, COAL SAMPLE TESTER Medication Refill 03/23/[address] [place] [address] Abdulkadir Montoya MD Medication Refill 03/18/2019 12:06 PM EST - 03/18/2019 11:59 PM EST Hospital Encounter [facility] [address], [place] [address] Right arm pain Discharge Disposition: Home or Self Care 03/18/2019 9:00 AM EST Office Visit [address] [place] [address] Arminda Wilson APRN Fall, initial encounter (Primary Dx); Right arm pain 03/12/[address] [place] [address] Abdulkadir Montoya MD Medication Refill 02/02/[address] [place] [address] Abdulkadir Montoya MD Medication Refill 01/17/2019 Orders Only [address] [place] [address] Arminda Wilson APRN Acquired hypothyroidism (Primary Dx) 01/14/2019 10:20 AM EDT Clinical Support [address] [place] [address] Kristin Acevedo Annual physical exam; Lipid screening; Acquired hypothyroidism 01/10/2019 3:20 PM EDT Office Visit [address] [place] [address] Arminda Wilson APRN Annual physical exam (Primary Dx); Acquired hypothyroidism; Chronic midline low back pain with left-sided sciatica; Obesity, morbid, BMI 50 or higher (HCC); Dietary counseling; Exercise counseling; Situational anxiety; Encounter for screening mammogram for breast cancer; Lipid screening 12/21/[address] [place] [address] Abdulkadir Montoya MD Medication Refill 11/11/[address] [place] [address] Abdulkadir Montoya MD Medication Refill 11/02/2018 Travel 11/02/2018 7:30 AM EDT - 11/02/2018 8:15 AM EDT Surgery [facility] [place] [address] Parveen Marsh MD ANKLE/ HEEL/CALCANEUS DEBRIDEMENT INCISION AND DRAINAGE 11/02/2018 7:25 AM EDT Anesthesia Event [facility] [place] [address] Jj Tanner MD Braxton-Brown, Jennifer, EMELY 11/02/2018 5:05 AM EDT - 11/02/2018 10:15 AM EDT Hospital Encounter [facility] SAME DAY SURGERY [facility] [place] [address] Parveen Marsh MD Deep postoperative wound infection (Primary Dx); Preop testing Discharge Disposition: Home or Self Care 11/01/2018 Travel 10/29/2018 Refill [facility] [address] [place] [address] Abdiel Lucas MD Medication Refill 10/15/2018 Refill [facility] [address] [place] [address] Abdulkadir Montoya MD Medication Refill 10/14/2018 Refill [facility] [address] [place] [address] Abdiel Lucas MD Medication Refill 10/09/2018 Patient Outreach [place] [address] [place] [address] Daya Mcintosh LPN ED Follow-Up Call 10/06/2018 12:38 PM EDT - 10/06/2018 11:59 PM EDT Hospital Encounter [facility] [address] [place] [address] Speedy Pedroza MD Left leg pain Discharge Disposition: Home or Self Care 10/05/2018 9:20 PM EDT - 10/06/2018 12:42 AM EDT Emergency [facility] [address] [place] [address] Speedy Pedroza MD Left leg pain (Primary Dx) Discharge Disposition: Home or Self Care 10/03/2018 9:40 AM EDT Office Visit [address] [place] [address] Arminda Wilson APRN Moderate persistent asthma with (acute) exacerbation (Primary Dx) 09/28/2018 Travel 09/28/2018 10:30 AM EDT - 09/28/2018 12:00 PM EDT Surgery [facility] [place] [address] Parveen Marsh MD ACHILLES TENDON RECONSTRUCTION WITH FLEXOR HALLUCIS LONGUS TENDON TRANSFER AND EXCISION HAGLUNDS DEFORMITY CALCANEUS 09/28/2018 10:38 AM EDT Anesthesia Event [facility] [place] [address] Leonides You MD Braxton-Brown, Jennifer, APRN 09/28/2018 8:07 AM EDT - 09/28/2018 2:33 PM EDT Hospital Encounter [facility] SAME DAY SURGERY [facility] [place] [address] Parveen Marsh MD Discharge Disposition: Home or Self Care 09/22/2018 Refill SEP [address] [place] [address] Abdulkadir Montoya MD Medication Refill 09/10/2018 Refill SEP [address] [place] [address] Abdulkadir Montoya MD Medication Refill 08/21/2018 Refill SEP [address] [place] [address] Abdulkadir Montoya MD Medication Refill 08/15/[address] [place] [address] Abdulkadir Montoya MD Medication Refill 08/14/[address] [place] [address] Abdulkadir Montoya MD Heel Pain 07/23/2018 1:20 PM EDT Office Visit [address] [place] [address] Grace Arroyo APRN Acute bacterial sinusitis (Primary Dx) 07/23/[address] [place] [address] Abdulkadir Montoya MD Cough 07/13/2018 4:40 PM EDT Office Visit [address] [place] [address] Abdulkadir Montoya MD Moderate asthma with acute exacerbation, unspecified whether persistent (Primary Dx); Muscle spasm of left lower extremity; Obesity, morbid, BMI 50 or higher ([facility]) 07/10/[address] [place] [address] Abdiel Lucas MD Medication Refill 07/03/2018 4:40 PM EDT Office Visit [address] [place] [address] Arminda Wilson APRN Cutaneous abscess of other site (Primary Dx); Chronic midline low back pain with left-sided sciatica 05/29/2018 Orders Only [address] [place] [address] Ellen Zelaya CCMA Rash and nonspecific skin eruption 05/29/2018 11:30 AM EST Office Visit [address] [place] [address] Abdulkadir Montoya MD Rash and nonspecific skin eruption (Primary Dx) 05/26/[address] [place] [address] Abdulkadir Montoya MD Medication Refill 05/17/2018 Orders Only [address] [place] [address] Abdulkadir Montoya MD Hot flashes (Primary Dx) 04/30/2018 Patient Outreach [address] [place] [address] Tania Malagon, construction ironworker; Care Management - Chart Review; ED Follow-Up Call 04/30/2018 11:20 AM EST Office Visit [address] [place] [address] Abdulkadir Montoya MD Moderate asthma with acute exacerbation, unspecified whether persistent (Primary Dx); Acquired hypothyroidism; Menopausal symptoms; Restless legs syndrome (RLS) 04/29/[address] [place] [address] Abdulkadir Montoya MD Medication Refill 04/27/2018 9:22 PM EST - 04/27/2018 10:31 PM EST Emergency [place] [address] [address] [facility] [place] [address] Skyler Fontenot MD Mild intermittent asthma with exacerbation (Primary Dx) Discharge Disposition: Home or Self Care 04/22/[address] [place] [address] Abdiel Lucas MD Medication Refill 04/13/[address] [place] [address] Abdulkadir Montoya MD Other 04/13/[address] [place] [address] Abdiel Lucas MD Medication Refill 03/21/2018 5:00 PM EST Office Visit [address] [place] [address] Abdiel Lucas MD Acute bronchitis, unspecified organism (Primary Dx) 03/21/[address] [place] [address] Abdulkadir Montoya MD Asthma 03/09/[address] [place] [address] Abdulkadir Montoya MD Medication Refill 03/05/2018 Patient Outreach [address] [place] [address] Tania Malagon RN Care Transition; Care Management - Chart Review; ED Follow-Up Call 03/04/2018 11:02 AM EST - 03/04/2018 12:32 PM EST Emergency [facility] [address] [place] [address] Scottie Sullivan MD Moderate asthma with exacerbation, unspecified whether persistent (Primary Dx) Discharge Disposition: Home or Self Care 02/28/2018 8:40 AM EST Office Visit [address] [place] [address] Nicolette Lomeli MD Pain in right arm (Primary Dx); Need for influenza vaccination; Need for pneumococcal vaccination 02/13/[address] [place] [address] Abdulkadir Montoya MD Medication Refill 02/08/2018 11:50 AM EDT Office Visit [address] [place] [address] Abdulkadir Montoya MD Acute bronchospasm (Primary Dx); Peripheral neuropathy, idiopathic 01/29/2018 11:50 AM EDT Office Visit [address] [place] [address] Abdulkadir Montoya MD Cutaneous abscess of face (Primary Dx) 01/29/[address] [place] [address] Abdulkadir Montoya MD Appointment Needed (Acute, painful bump behind ear) 12/29/2017 11:40 AM EDT Office Visit [address] [place] [address] Abdulkadir Montoya MD Pneumonia of right lower lobe due to infectious organism (HCC) (Primary Dx); Bilateral lower extremity pain 12/06/[address] [place] [address] Abdiel Lucas MD Medication Refill 11/17/[address] [place] [address] Abdulkadir Montoya MD Medication Refill 10/24/[address] [place] [address] Abdiel Lucas MD Medication Refill 09/08/2017 2:20 PM EDT Office Visit [address] [place] [address] Abdulkadir Montoya MD Bilateral lower extremity pain 09/01/[address] [place] [address] Abdulkadir Montoya MD Medication Refill 08/25/[address] [place] [address] Abdulkadir Montoya MD Medication Refill 08/13/[address] [place] [address] Abdulkadir Montoya MD Medication Refill 07/16/[address] [place] [address] Abdulkadir Montoya MD Medication Refill 07/13/[address] [place] [address] Abdulkadir Montoya MD Medication Refill 07/03/2017 Patient Outreach [address] [place] [address] Tania Malagon RN Care Transition; Care Management - Chart Review; ED Follow-Up Call; Hospital Follow Up 07/03/2017 Patient Outreach [facility] [address] [place] [address] Beverly Correa, JEREL Care Management - Chart Review (Hospital d/c review) 06/29/2017 8:53 PM EST - 06/30/2017 6:01 PM EST Emergency . [facility] [address] [place] [address] Abdiel Uribe MD Shanehsaz, Piam, MD Chest pain, unspecified type (Primary Dx) Discharge Disposition: Home or Self Care 06/19/2017 Refill SEP [address] [place] [address] Abdulkadir Montoya MD Medication Refill 06/03/2017 Refill SEP [address] [place] [address] Abdiel Lucas MD Medication Refill 05/18/2017 Refill SEP [address] [place] [address] Abdulkadir Montoya MD Medication Refill 05/05/[address] [place] [address] Abdiel Lucas MD Medication Refill 05/02/2017 3:30 PM EST Office Visit [address] [place] [address] Arminda [place] APRN Exposure to the flu (Primary Dx); Moderate persistent asthma with exacerbation 04/10/2017 12:16 PM EST - 04/10/2017 11:59 PM EST Hospital Encounter [facility] [address] [facility] [address], [place] [address] Emg, Erasto Edg Pain in both lower extremities (Primary Dx); Bilateral lower extremity pain; Bilateral leg numbness Discharge Disposition: Home or Self Care 03/28/2017 12:00 PM EST Office Visit [address] [place] [address] Abdulkadir Montoya MD Bilateral lower extremity pain (Primary Dx); Lumbar radiculopathy 03/28/[address] [place] [address] Abdulkadir Montoya MD Other (appt) 03/25/2017 Refill SEP [address] [place] [address] Abdulkadir Montoya MD Medication Refill 01/31/2017 10:20 AM EDT Office Visit [address] [place] [address] Abdulkadir Montoya MD Moderate asthma with acute exacerbation, unspecified whether persistent (Primary Dx); Peripheral neuropathy, idiopathic 01/27/2017 Patient Outreach [address] [place] [address] Lexi Hernandez LPN Care Transition; Care Management - Chart Review; ED Follow-Up Call 01/26/2017 7:31 PM EDT - 01/26/2017 8:53 PM EDT Emergency [facility] [address] [place] [address] Abel Velasquez MD Moderate asthma with acute exacerbation, unspecified whether persistent (Primary Dx) Discharge Disposition: Home or Self Care 01/16/[address] [place] [address] Abdulkadir Montoya MD Medication Refill 10/17/2016 Patient Outreach [address] [place] [address] Lexi Hernandez LPN Care Transition; Care Management - Chart Review; ED Follow-Up Call 10/15/2016 9:08 PM EDT - 10/15/2016 9:53 PM EDT Emergency [facility] [address] [place] [address] Parveen Syed MD Asthma exacerbation (Primary Dx) Discharge Disposition: Home or Self Care 10/06/2016 Refill SEP [address] [place] [address] Abdiel Lucas MD Medication Refill 09/20/2016 Refill SEP [address] [place] [address] Abdiel Lucas MD Medication Refill 09/20/[address] [place] [address] Abdulkadir Montoya MD Medication Refill 09/19/[address] [place] [address] Abdiel Lucas MD Medication Refill 07/18/2016 4:20 PM EDT Office Visit [address] [place] [address] Abdulkadir Montoya MD Asthma exacerbation (Primary Dx) 07/04/2016 3:40 PM EDT Office Visit [address] [place] [address] Abdulkadir Montoya MD Acute bacterial sinusitis (Primary Dx) 06/06/2016 8:40 PM EST - 06/06/2016 11:59 PM EST Hospital Encounter EDG LAB VEL PROCESSING [facility] [place] [address] Peripheral neuropathy, idiopathic; Acquired hypothyroidism Discharge Disposition: Home or Self Care 06/06/2016 3:20 PM EST Office Visit [address] [place] [address] Abdulkadir Montoya MD Acquired hypothyroidism (Primary Dx); Peripheral neuropathy, idiopathic; Necrobiosis lipoidica, not elsewhere classified 04/05/2016 10:20 AM EST Office Visit [address] [place] [address] Abdulkadir Montoya MD Wound infection after surgery, initial encounter (Primary Dx) 04/04/2016 Patient Outreach [address] [place] [address] Kristin Wilder, [facility] Hospital Follow Up 03/27/2016 4:06 PM EST - 04/01/2016 2:28 PM EST Hospital Encounter EDG 2B1 NEUROSCIENCE [facility] [place] [address] Ramesh Garcia MD Discharge Disposition: Home or Self Care 03/29/2016 5:30 PM EST - 03/29/2016 6:48 PM EST Surgery EDG [facility] [place] [address] Ramesh Garcia MD LUMBAR MASS EXCISION/WOUND INCISION & DRAINAGE 03/29/2016 5:47 PM EST Anesthesia Event EDG [facility] [place] [address] Trinidad Jonas MD Collins, Angela, APRN 03/27/2016 8:51 AM EST - 03/27/2016 3:48 PM EST Emergency . [facility] [address] [place] [address] Samantha Lopez MD Bailey, Steven C, MD Postoperative abscess, initial encounter (Primary Dx) Discharge Disposition: Home or Self Care 03/24/2016 Refill [facility] [address] [place] [address] Abdulkadir Montoya MD Medication Refill 03/11/2016 6:15 AM EST - 03/12/2016 9:43 AM EST Hospital Encounter EDG 2B1 NEUROSCIENCE [facility] [place] [address] Ramesh Garcia MD Discharge Disposition: Home or Self Care 03/11/2016 9:30 AM EST - 03/11/2016 11:30 AM EST Surgery EDG [facility] [place] [address] Ramesh Garcia MD LUMBAR LAMINECTOMY/DISCECTOM Y (COVERS FACETECTOMY) 03/11/2016 10:16 AM EST Anesthesia Event EDG [facility] [place] [address] Jack Garvey MD Merkle Serey, Jennifer L, NP 03/07/2016 1:09 PM EST - 03/07/2016 11:59 PM EST Hospital Encounter EDG PRE-ADMIT TESTING [facility] [place] [address] Discharge Disposition: Home or Self Care 03/01/2016 1:43 PM EST - 03/01/2016 11:59 PM EST Hospital Encounter [facility] [address], [place] [address] Ramesh Garcia MD Displacement of lumbar intervertebral disc without myelopathy; Cervicalgia Discharge Disposition: Home or Self Care 02/01/2016 Refill SEP [address] [place] [address] Abdiel Lucas MD Medication Refill 01/26/[address] [place] [address] Abdiel Lucas MD Medication Refill 01/19/[address] [place] [address] Abdulkadir Montoya MD Medication Refill 01/07/[address] [place] [address] Abdiel Lucas MD Medication Refill 01/06/[address] [place] [address] Abdiel Lucas MD Medication Refill 01/05/[address] [place] [address] Antonella Winston PA-C Visit Follow Up 12/30/2015 4:12 PM EDT - 12/30/2015 11:59 PM EDT Hospital Encounter EDG LAB VEL PROCESSING [facility] [address] [place] [id number] Cellulitis and abscess of trunk Discharge Disposition: Home or Self Care 12/29/2015 3:00 PM EDT Office Visit [address] [place] [address] Antonella Winston PA-C Cellulitis and abscess of trunk (Primary Dx); Rash; Family history of diabetes mellitus; Polydipsia 12/18/[address] [place] [address] Abdulkadir Montoya MD Medication Refill 12/08/[address] [place] [address] Abdulkadir Montoya MD Back Pain 11/30/[address] [place] [address] Abdulkadir Montoya MD Visit Follow Up 11/27/2015 7:52 AM EDT - 11/27/2015 11:59 PM EDT Hospital Encounter [facility] MRI [address] [place] [address] Antonella Winston PA-C Numbness and tingling; Bilateral low back pain with sciatica, sciatica laterality unspecified Discharge Disposition: Home or Self Care 11/20/2015 8:20 AM EDT Office Visit [address] [place] [address] Antonella Winston PA-C Numbness and tingling (Primary Dx); Bilateral low back pain with sciatica, sciatica laterality unspecified 11/10/2015 10:35 AM EDT - 11/10/2015 11:59 PM EDT Hospital Encounter [facility] EMG [address] [facility] [address] [place] [address] Emg, Erasto Edg Pain of left lower extremity (Primary Dx); Fall, subsequent encounter; Numbness in left leg Discharge Disposition: Home or Self Care 11/03/[address] [place] [address] Abdulkadir Montoya MD Other (back pain) 10/29/2015 3:12 PM EDT - 10/29/2015 11:59 PM EDT Hospital Encounter GRT SABIAY [address] [place] [address] Fall, subsequent encounter; Left hip pain; Left-sided low back pain with left-sided sciatica Discharge Disposition: Home or Self Care 10/29/2015 11:40 AM EDT Office Visit [address] [place] [address] Antonella Winston PA-C Fall, subsequent encounter (Primary Dx); Numbness in left leg; Left-sided low back pain with left-sided sciatica; Left hip pain 10/20/2015 10:10 AM EDT Office Visit [address] [place] [address] Abdulkadir Montoya MD Acute low back pain (Primary Dx) 10/15/2015 3:40 PM EDT Office Visit [address] [place] [address] Abdulkadir Montoya MD Sacroiliac joint dysfunction of left side (Primary Dx) 10/09/2015 2:59 PM EDT - 10/09/2015 11:59 PM EDT Hospital Encounter [facility] XRAY [address] [place] [address] Arthralgia of right hip Discharge Disposition: Home or Self Care 10/08/[address] [place] [address] Abdulkadir Montoya MD Orders 10/07/2015 4:00 PM EDT Office Visit [address] [place] [address] Grace Arroyo APRN Right hip pain (Primary Dx) 09/23/2015 9:00 AM EDT Office Visit [address] [place] [address] Antonella Winston PA-C Abscess of skin of abdomen (Primary Dx); Itching 08/21/2015 11:00 AM EDT Office Visit [address] [place] [address] Manuel Moran MD S/P laparoscopy (Primary Dx); Dysuria; S/P endometrial ablation; Endometritis 08/18/[address] [place] [address] Manuel Moran MD Other 08/13/2015 2:30 PM EDT Office Visit [facility] [address] [facility] [address] [place] [address] Manuel Moran MD S/P laparoscopy (Primary Dx); S/P endometrial ablation; S/P unilateral salpingo-oophorectomy 07/30/2015 Patient Outreach [facility] Sujata [address] [place] [phone] Angelic Keith [facility] Follow Up 07/29/2015 1:47 PM EDT Anesthesia Event JOHANNY [facility] [address] [facility] [place] [address] Huy Mina MD Nacu, Bernard, DITCH TENDER 07/29/2015 11:45 AM EDT - 07/29/2015 2:17 PM EDT Surgery JOH[facility] [address] [place] [id number] Manuel Moran MD DAVINCI ROBOTIC LAPAROSCOPY 07/27/2015 8:08 PM EDT - 07/29/2015 10:12 PM EDT Hospital Encounter Johanny [address] [place] [address] Manuel Moran MD Discharge Disposition: Home or Self Care 07/27/2015 3:06 PM EDT - 07/27/2015 7:37 PM EDT Emergency [facility] Emergency [address] [place] [address] Parveen Rodriguez MD Pelvic pain in female (Primary Dx); Cyst of right ovary Discharge Disposition: Short Term Hospital 07/23/2015 3:40 PM EDT - 07/23/2015 11:59 PM EDT Hospital Encounter EDG LAB VEL PROCESSING [facility] [place] [address] Urinary tract infection with hematuria, site unspecified Discharge Disposition: Home or Self Care 07/23/2015 4:20 PM EDT Office Visit [place] [facility] Sujata [address] [place] [phone] Antonella Winston PA-C Lower abdominal pain (Primary Dx); Abnormal menstrual cycle; Vaginal vault prolapse; Urinary tract infection with hematuria, site unspecified 05/09/[address] [place] [address] Abdiel Lucas MD Medication Refill 04/13/2015 10:50 AM EST Office Visit [address] [place] [address] Abdulkadir Montoya MD Abscess (Primary Dx) 03/25/2015 Patient Outreach [address] [place] [address] Destinee Yang, DRUG ENFORCEMENT AGENT Follow-Up Call 03/23/2015 8:21 PM EST - 03/23/2015 10:02 PM EST Emergency [facility] [address] [place] [address] Jack Wilder DO Asthma exacerbation (Primary Dx) Discharge Disposition: Home or Self Care 02/06/[address] [place] [address] Abdulkadir Montoya MD Other 02/05/2015 7:51 PM EDT - 02/05/2015 11:59 PM EDT Hospital Encounter EDG LAB VEL PROCESSING [facility] [place] [address] Breast pain, right; Dysmenorrhea Discharge Disposition: Home or Self Care 02/05/2015 3:20 PM EDT Office Visit [address] [place] [address] Abdulkadir Montoya MD Moderate persistent asthma without complication (Primary Dx); Breast pain, right; Dysmenorrhea 02/04/2015 Patient Outreach [address] [place] [address] Destinee Yang, DRUG ENFORCEMENT AGENT Follow-Up Call 02/03/2015 3:17 PM EDT - 02/03/2015 4:22 PM EDT Emergency [facility] [address] [facility] [place] [address] Parveen Syed MD Mild intermittent asthma without complication (Primary Dx) Discharge Disposition: Home or Self Care 01/20/2015 7:58 PM EDT - 01/20/2015 11:59 PM EDT Hospital Encounter EDG LAB VEL PROCESSING [facility] [address] [place] [address] Acquired hypothyroidism Discharge Disposition: Home or Self Care 01/20/2015 2:40 PM EDT Clinical Support [address] [place] [address] Rula Birch CCMA Acquired hypothyroidism (Primary Dx) 01/01/[address] [place] [address] Abdulkadir Montoya MD Cough 12/23/2014 10:10 AM EDT Office Visit [address] [place] [address] Abdulkadir Montoya MD Moderate persistent asthma without complication (Primary Dx); Acute bronchitis, unspecified organism 10/27/[address] [place] [address] Abdulkadir Montoya MD Results (HEMOCCULT CARDS X 3 ALL NEG) 10/27/2014 3:20 PM EDT Clinical Support [address] [place] [address] Kristin Acevedo Screening for malignant neoplasm of the rectum (Primary Dx) 10/22/[address] [place] [address] Abdulkadir Montoya MD Visit Follow Up 10/22/2014 Orders Only [address] [place] [address] Abdiel Lucas MD Iron deficiency anemia (Primary Dx) 10/20/2014 7:03 PM EDT - 10/20/2014 11:59 PM EDT Hospital Encounter EDG LAB VEL PROCESSING [facility] [place] [address] Anemia, unspecified anemia type Discharge Disposition: Home or Self Care 10/20/2014 Patient Outreach [address] [place] [address] Jeannie Wills LPN ED Follow-Up Call 10/20/2014 Patient Outreach [facility] [address] [place] [address] aTnia Garcia, JEREL Care Management - Chart Review (hospital discharge reviewed) 10/20/2014 2:00 PM EDT Office Visit [facility] [address] [place] [address] Abdiel Lucas MD Hospital discharge follow-up (Primary Dx); Health care maintenance; Anemia, unspecified anemia type; Hypothyroidism, unspecified hypothyroidism type; Other chest pain; Gastroesophageal reflux disease without esophagitis 10/17/2014 12:28 AM EDT - 10/17/2014 6:02 PM EDT Hospital Encounter EDG TCU [address]A [facility] [address] [place] [id number] Javad Hernandez DO Discharge Disposition: Home or Self Care 10/16/2014 6:15 PM EDT - 10/16/2014 11:53 PM EDT Emergency [facility] [address] [place], [place] [id number] Ce Philippe, Jeffery Hodge MD Acute chest pain (Primary Dx) Discharge Disposition: Short Term Hospital 10/16/2014 5:20 PM EDT Office Visit [facility] Sujata [address] [place] [address] Abdulkadir Montoya MD Acute chest pain (Primary Dx) 09/29/2014 Refill [facility] [address] [place] [address] Abdulkadir Montoya MD Medication Refill 08/14/2014 Refill [facility] [address] [place] [address] Abdulkadir Montoya MD Medication Refill 07/28/2014 1:45 PM EDT Office Visit [address] [place] [address] Jayda Hamilton MD Thoracic or lumbosacral neuritis or radiculitis, unspecified (Primary Dx) 07/04/2014 3:00 PM EDT Office Visit [facility] [address] [place] [address] Abdulkadir Montoya MD Hypothyroidism (Primary Dx); GERD (gastroesophageal reflux disease) 06/30/2014 8:54 AM EDT - 06/30/2014 11:59 PM EDT Hospital Encounter [facility] [address] [place] [address] [address] [place] [address] Jim Penn MD Lumbar radiculopathy Discharge Disposition: Home or Self Care 06/17/2014 Telephone [facility] [address] [place] [address] [address] [place] [address] Jim Penn MD Follow-up 06/03/2014 9:47 AM EST - 06/03/2014 11:59 PM EST Hospital Encounter [facility] Physical [address] [place] [address] Liz[place] Garza, PT Discharge Disposition: Home or Self Care 06/02/2014 8:47 AM EST - 06/02/2014 11:59 PM EST Hospital Encounter [facility] [address] [place] [address] [address] [place] [address] Jim Penn MD Lumbar radiculopathy Discharge Disposition: Home or Self Care 05/28/2014 9:03 AM EST - 05/28/2014 11:59 PM EST Hospital Encounter [facility] Physical [address] [place] [address] [place] Garza, PT Lumbar radiculopathy (Primary Dx) Discharge Disposition: Home or Self Care 05/20/2014 3:00 PM EST Office Visit [facility] [address] [place] [address] Jim Penn MD Lumbar radiculopathy (Primary Dx) 04/10/[address] [place] [address] Abdulkadir Montoya MD Medication Refill 04/08/[address] [place] [address] Abdulkadir Montoya MD Other (discuss pain) 04/07/2014 Orders Only [address] [place] [address] Abdulkadir Montoya MD Bulging disc (Primary Dx) 04/03/2014 8:39 AM EST - 04/03/2014 11:59 PM EST Hospital Encounter [facility] MRI [address] [place] [address] Abdulkadir Montoya MD Lumbosacral radiculopathy at L3; Lumbosacral radiculopathy at L5 Discharge Disposition: Home or Self Care 04/01/2014 11:50 AM EST Office Visit [address] [place] [address] Abdulkadir Montoya MD Acute bronchitis (Primary Dx); Hypothyroidism 03/25/[address] [place] [address] Abdulkadir Montoya MD Orders 03/24/2014 11:30 AM EST - 03/24/2014 11:59 PM EST Hospital Encounter [facility]G [address] [place] [address] Aracely Luz MD Intervertebral lumbar disc disorder with myelopathy, lumbar region (Primary Dx); Neuralgia and neuritis; Headache; Facial numbness; Bilateral leg numbness Discharge Disposition: Home or Self Care 03/17/2014 10:20 AM EST Office Visit [address] [place] [address] Abdulkadir Montoya MD Neuralgia and neuritis (Primary Dx); Headache; Facial numbness; Bilateral leg numbness 03/06/2014 4:24 PM EST - 03/06/2014 11:59 PM EST Hospital Encounter [facility] [address] [place] [address] Low back pain Discharge Disposition: Home or Self Care 03/03/2014 10:50 AM EST Office Visit [facility] [address] [place] [address] Abdulkadir Montoya MD Asthma, moderate persistent, uncomplicated (Primary Dx); Low back pain 02/28/2014 3:39 PM EST - 02/28/2014 5:35 PM EST Emergency [facility] [address] 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 [address] Ugo Sr MD Low back pain (Primary Dx) Discharge Disposition: Home or Self Care 01/20/2014 Telephone [facility]P [facility] [address] [place] [address] Abdulkadir Montoya MD Other 01/07/2014 Refill [facility] [place] [address] [place] [address] Abdulkadir Montoya MD Medication Refill 11/12/2013 4:43 PM EDT - 11/12/2013 11:59 PM EDT Hospital Encounter EDG LAB VEL PROCESSING [facility] [place] [address] Hypothyroidism; Asthma, moderate persistent, uncomplicated; Weight gain Discharge Disposition: Home or Self Care 11/12/2013 10:30 AM EDT Office Visit [facility] [address] [place] [address] Abdulkadir Montoya MD Asthma, moderate persistent, uncomplicated (Primary Dx); Hypothyroidism; Weight gain 11/11/2013 Telephone [facility] [address] [place] [address] Destinee Yang RN Care Transition 11/08/2013 3:38 PM EDT - 11/08/2013 4:49 PM EDT Emergency [facility] [address] [facility] [place], [place] [id number] John Alfredo MD Asthma exacerbation, unspecified asthma severity (Primary Dx) Discharge Disposition: Home or Self Care 09/26/2013 Refill SEP [address] [place] [address] Abdulkadir Montoya MD Medication Refill 09/09/2013 9:33 PM EDT - 09/09/2013 10:32 PM EDT Emergency [facility] [address] [facility] [place], [place] [id number] William Hawk MD Shinglyajaira (Primary Dx) Discharge Disposition: Home or Self Care 07/03/2013 Refill [facility] [place] [address] Abdulkadir Montoya MD Medication Refill 07/01/2013 10:20 AM EDT Office Visit [facility] [address] [place] [address] Abdulkadir Montoya MD Abdominal pain (Primary Dx) 05/20/2013 8:50 AM EST Office Visit [address] [place] [address] Abdulkadir Montoya MD Meralgia paresthetica of left side (Primary Dx); Asthma; Acute bronchitis 03/16/2013 Refill SEP [address] [place] [address] Abdulkadir Montoya MD Medication Refill 02/04/2013 8:00 AM EDT - 02/04/2013 8:30 AM EDT Surgery [facility] [address] [place] [address] Kendall Garcia MD SHOULDER ARTHROSCOPY ROTATOR CUFF REPAIR/ SUBACROMIAL DECOMPRESSION/ MACARIO 02/04/2013 6:01 AM EDT - 02/04/2013 11:40 AM EDT Hospital Encounter [facility] SAME DAY SURGERY [address] [place] [address] Kendall Garcia MD Discharge Disposition: Home or Self Care 01/18/2013 3:13 PM EDT - 01/18/2013 5:00 PM EDT Emergency [facility] [address] [place] [address] Abdiel Uribe MD Contusion (Primary Dx) Discharge Disposition: Home or Self Care 01/16/2013 11:19 AM EDT - 01/16/2013 11:59 PM EDT Hospital Encounter [facility] MRI [address] [place] [address] Abdulkadir Montoya MD Right shoulder pain Discharge Disposition: Home or Self Care 01/14/2013 Telephone SEP [address] [place] [address] Abdulkadir Montoya MD Other 01/08/2013 9:00 AM EDT - 01/08/2013 11:59 PM EDT Hospital Encounter [facility] XRAY [address] [place] [address] Right shoulder pain Discharge Disposition: Home or Self Care 01/07/2013 12:10 PM EDT Office Visit SEP [address] [place] [address] Abdulkadir Montoya MD Right shoulder pain (Primary Dx); Rotator cuff tear 01/07/2013 Telephone SEP [address] [place] [address] Abdulkadir Montoya MD Shoulder Injury 12/09/2012 Refill [place] [address] [place] [address] Abdulkadir Montoya MD Medication Refill 08/30/2012 Refill [facility] [place] [address] [place] [address] Abdulkadir Montoya MD Medication Refill 08/23/2012 11:52 AM EDT - 08/23/2012 12:45 PM EDT Emergency [facility] [address] [place] [address] Jj Lozada MD Foot pain (Primary Dx); Plantar fasciitis Discharge Disposition: Home or Self Care 08/14/2012 1:40 PM EDT Office Visit [facility] [address] [place] [address] Abdulkadir Montoya MD Peripheral neuropathy (Primary Dx) 06/28/2012 2:40 PM EST Office Visit [facility] [address] [place] [address] Faith Navas MD Post-operative state (Primary Dx) 06/18/2012 10:45 AM EST - 06/18/2012 11:45 AM EST Surgery [facility] [address] [place] [address] Faith Navas MD LAPAROSCOPIC CHOLECYSTECTOMY POSSIBLE OPEN 06/18/2012 8:27 AM EST - 06/18/2012 5:13 PM EST Hospital Encounter [facility] SAME DAY SURGERY [address] [place] [address] Faith Navas MD Discharge Disposition: Home or Self Care 06/15/2012 Telephone [facility] Gen Surg EDG [address] [facility] [address] [place] [address] Randa Boyer MA Visit Follow Up 06/15/2012 Telephone [facility]P Gen Surg EDG [address] [facility] [address] [place] [address] Faith Navas MD Surgery 06/14/2012 9:20 AM EST Office Visit [facility] Surgery [facility] [address] [place] [address] Faith Navas MD Symptomatic cholelithiasis (Primary Dx) 05/30/2012 4:00 PM EST Office Visit [facility] [address] [place] [address] Abdulkadir Montoya MD Asthma (Primary Dx) 05/23/2012 Refill [facility] [address] [place] [address] Abdulkadir Montoya MD Medication Refill 04/27/[address] [place] [address] Abdulkadir Montoya MD Medication Refill 03/06/2012 10:20 AM EST Office Visit [facility] Gen Surgery [facility]TT [address] [place] [phone] Faith Navas MD Biliary colic (Primary Dx) 03/02/2012 9:30 AM EST Office Visit [address] [place] [address] Alondra Oates MD URI (upper respiratory infection) (Primary Dx); Asthma; Hypothyroidism 02/22/[address] [place] [address] Abdulkadir Montoya MD Medication Refill 08/04/2011 Orders Only [address] [place] [address] Abdulkadir Montoya MD Thyroid disease (Primary Dx) 07/28/2011 3:15 PM EDT - 07/28/2011 11:59 PM EDT Hospital Encounter EDG LAB VEL PROCESSING [facility] [place] [address] Hypothyroid Discharge Disposition: Home or Self Care 07/28/2011 10:30 AM EDT Office Visit [address] [place] [address] Abdulkadir Montoya MD Hypothyroid (Primary Dx); Acute gastroenteritis 05/23/2011 4:40 PM EST Office Visit [address] [place] [address] Abdulkadir Montoya MD Acute sinusitis (Primary Dx); Asthma; Dysmenorrhea 04/29/2011 11:00 AM EST Office Visit [address] [place] [address] Abdulkadir Montoya MD Dressing change/suture removal (Primary Dx) 04/28/2011 5:42 PM EST - 04/28/2011 11:59 PM EST Hospital Encounter EDG LAB VEL PROCESSING [facility] [place] [address] MRSA infection Discharge Disposition: Home or Self Care 04/27/2011 4:20 PM EST Office Visit [address] [place] [address] Abdulkadir Montoya MD MRSA infection (Primary Dx) 04/25/2011 9:10 AM EST Office Visit [address] [place] [address] Abdulkadir Montoya MD Infected sebaceous cyst of skin (Primary Dx) 03/23/2011 5:38 PM EST - 03/23/2011 6:22 PM EST Emergency [facility] [address] [place] [address] Asthma; Bronchitis Discharge Disposition: Home or Self Care 10/12/2010 4:00 PM EDT Office Visit [facility] Sujata [address] [place] [address] Abdulkadir Montoya MD Wrist sprain (Primary Dx) 08/23/[address] [place] [address] Abdulkadir Montoya MD URI 02/16/[address] [place] [address] Abdulkadir Montoya MD 01/14/2010 3:54 PM EDT - 01/14/2010 5:00 PM EDT Emergency [facility] [address] [place] [address] Nicolas Ríos MD Asthma with acute exacerbation Discharge Disposition: Home or Self Care 12/23/2008 4:14 PM EDT - 12/24/2008 7:08 PM EDT Hospital Encounter [facility], [facility], DO Jan Mcallister Brian W, MD 07/04/2008 2:59 PM EDT - 07/04/2008 3:28 PM EDT Emergency [facility]ST EPIC CON UNK GRT Fredrick Christian MD 03/22/2008 2:58 PM EST - 03/22/2008 4:05 PM EST Emergency [facility]ST EPIC CON UNK GRT Abdulkadir Maxwell MD 08/08/2007 12:59 PM EDT - 08/08/2007 1:37 PM EDT Emergency HST E/D BLUE EDG Rufino Delgadillo MD 06/26/2007 3:34 PM EST - 06/26/2007 11:59 PM EST Hospital Encounter [facility]ST LAB EDG Abdulkadir Montoya MD 05/25/2007 6:00 PM EST - 05/25/2007 7:40 PM EST Emergency HST EPIC CON UNK GRT Kaleb Muir MD 01/20/2006 10:07 AM EDT - 01/20/2006 11:13 AM EDT Emergency HST EPIC CON UNK GRT Jj Moss MD 07/04/2005 12:28 AM EST - 07/04/2005 11:59 PM EST Emergency HST EPIC CON UNK GRT Jj High MD 03/05/2005 10:07 PM EST - 03/05/2005 10:30 PM EST Emergency HST EPIC CON UNK GRT Shantal Hinton MD 11/01/2004 Hospital Encounter [facility] MEDICINE FTT Generic, Historical Provider 08/07/2004 10:28 PM EDT - 08/07/2004 10:40 PM EDT Emergency [facility]ST EPIC CON UNK GRT Nora Bailey MD 07/15/2004 8:05 PM EST - 07/16/2004 12:13 AM EST Emergency [facility] EMERGENCY FTT Generic, Historical Provider 08/22/2003 12:29 PM EDT - 08/24/2003 6:39 PM EDT Hospital Encounter [facility] EBC FTT Generic, Historical Provider 07/24/2003 - 08/22/2003 Hospital Encounter [facility] OBSTETRICS FTT Generic, Historical Provider 06/04/2003 5:57 PM EST - 06/04/2003 10:30 PM EST Hospital Encounter [facility] EBC FTT Generic, Historical Provider 11/09/2002 9:30 PM EDT - 11/09/2002 10:15 PM EDT Emergency [facility] EMERGENCY FTT Generic, Historical Provider 11/06/2002 Hospital Encounter [facility] MEDICINE FTT Generic, Historical Provider 08/01/2002 1:35 PM EDT - 08/01/2002 3:28 PM EDT Emergency [facility] EMERGENCY FTT Generic, Historical Provider 02/11/2002 2:00 PM EDT - 02/11/2002 3:50 PM EDT Emergency [facility] EMERGENCY FTT Generic, Historical Provider 11/20/2001 4:37 PM EDT - 11/22/2001 1:00 PM EDT Hospital Encounter [facility] EBC FTT Generic, Historical Provider 11/20/2001 2:55 PM EDT - 11/20/2001 4:30 PM EDT Emergency [facility]ST EMERGENCY FTT Generic, Historical Provider 11/07/2001 2:35 PM EDT - 11/07/2001 5:30 PM EDT Emergency [facility]ST EMERGENCY FTT Generic, Historical Provider 07/31/2001 2:53 PM EDT - 07/31/2001 5:30 PM EDT Emergency [facility] EMERGENCY FTT Generic, Historical Provider 04/22/2001 12:01 AM EST - 04/22/2001 3:35 AM EST Emergency [facility] EMERGENCY FTT Generic, Historical Provider 03/08/2001 2:50 PM EST - 03/08/2001 3:45 PM EST Emergency [facility]ST UNKNFTT Generic, Historical Provider 01/16/2001 Hospital Encounter [facility] MEDICINE FTT Generic, Historical Provider 01/08/2001 8:20 PM EDT - 01/08/2001 10:00 PM EDT Emergency [facility]ST EMERGENCY FTT Generic, Historical Provider 01/07/2001 8:35 PM EDT - 01/07/2001 11:15 PM EDT Emergency [facility]ST EMERGENCY FTT Generic, Historical Provider 12/23/2000 3:02 PM EDT - 12/23/2000 3:47 PM EDT Emergency [facility]ST UNKNFTT Generic, Historical Provider 11/03/2000 4:35 PM EDT - 11/03/2000 7:30 PM EDT Emergency [facility]ST EMERGENCY FTT Generic, Historical Provider 10/17/2000 11:55 PM EDT - 10/18/2000 1:50 AM EDT Emergency [facility]ST UNKNFTT Generic, Historical Provider 08/11/2000 3:59 AM EDT - 08/11/2000 5:10 AM EDT Emergency [facility]ST EMERGENCY FTT Generic, Historical Provider 04/12/2000 10:19 PM EST - 04/12/2000 11:10 PM EST Emergency [facility]ST UNKNFTT Generic, Historical Provider 04/01/2000 12:30 AM EST - 04/01/2000 1:30 AM EST Emergency [facility]ST UNKNFTT Generic, Historical Provider 03/24/2000 3:34 PM EST - 03/24/2000 4:32 PM EST Emergency [facility]ST UNKNFTT Generic, Historical Provider 02/23/2000 8:55 PM EST - 02/23/2000 11:00 PM EST Emergency [facility]ST UNKNFTT Generic, Historical Provider 11/23/1999 - 01/22/2000 Hospital Encounter [facility]ST UNKNFTT Generic, Historical Provider 11/13/1999 3:56 PM EDT - 11/13/1999 5:00 PM EDT Emergency [facility]ST EMERGENCY FTT Generic, Historical Provider Allergies Active Allergy Reactions Criticality Noted Date Comments Cefazolin Itching,Rash 03/31/2016 Pt also had an asthma attack Nabumetone Rash 07/03/2018 Metronidazole Shortness Of Breath,Myalgia 05/18/2020 Amoxicillin-Pot Clavulanate Anaphylaxis High 02/24/2023 Amoxicillin Anaphylaxis High 09/01/2023 Reaction to Augmentin, but patient concerned about taking Amoxil. Medications albuterol-iprat ropium (DUO-NEB) 0.5 mg-3 mg(2.5 mg base)/3 mL Inhl Solution for Nebulization Take 3 mL by nebulization 0800, 1200, 1600, 2000. 60 Each 09/26/19 24 Active albuterol-budes onide (AIRSUPRA) 90-80 mcg/actuation Inhl HFA Aerosol InhalerIndicati ons:Mild intermittent asthma with acute exacerbation Inhale 2 Puffs into the lungs every 6 hours as needed. 10.7 g 1 03/19/20 24 Active docusate sodium (COLACE) 100 mg Oral Capsule Take 1 Capsule by mouth 2 times daily. 60 Capsule 2 04/04/20 24 Active Additional Information Patient taking differently:100 mg OralPRN, Reported on 09/16/2024 ibuprofen (ADVIL;MOTRIN) 600 mg Oral Tablet Take 1 Tablet by mouth every 6 hours as needed for Pain. 60 Tablet 1 04/04/20 24 Active EPINEPHrine (EPIPEN) 0.3 mg/0.3 mL Inj Auto-Injector Inject 0.3 mL into the muscle as needed for Anaphylaxis. 2 Each 04/10/20 24 Active omeprazole (PRILOSEC) 40 mg Oral Capsule, Delayed Release(E.C.)In dications:Abdom inal pain, LUQ (left upper quadrant) Take 1 Capsule by mouth daily. 90 Capsule 3 04/26/19 25 Active Brompheniramine -Pseudoeph-DM 2-30-10 mg/5 mL Oral SyrupIndication s:Viral URI with cough Take 10 mL by mouth every 4 hours as needed (Cough, Nasal Congestion, Allergies). 240 mL 1 06/07/19 25 Active hydroxychloroqu ine (PLAQUENIL) 200 mg Oral TabletIndicatio ns:YNES positive TAKE 1 TABLET BY MOUTH EVERY DAY 30 Tablet 5 06/10/19 25 Active COLLAGEN MISC 2 Tablets by [facility].(Non-Drug; Combo Route) route daily. Collagen Peptide Multivitamin Active LEVOthyroxine (SYNTHROID) 175 mcg Oral Tablet Take 1 Tablet by mouth daily. 08/09/19 25 Active ibuprofen (ADVIL;MOTRIN) 800 mg Oral TabletIndicatio ns:Stress reaction of left foot, initial encounter,Peron eal tendinitis of left lower extremity,Painf ul os peroneum syndrome Take 1 Tablet by mouth every 6 hours as needed. 40 Tablet 08/21/19 25 Active meloxicam (MOBIC) 15 mg Oral TabletIndicatio ns:Acute midline low back pain without sciatica TAKE 1 TABLET BY MOUTH EVERY DAY 30 Tablet 2 09/11/19 25 Active rOPINIRole (REQUIP) 1 mg Oral TabletIndicatio ns:Restless legs syndrome (RLS) TAKE 1 TABLET BY MOUTH EVERY DAY AT NIGHT 90 Tablet 1 10/09/19 25 Active fUROsemide (LASIX) 40 mg Oral Tablet TAKE 1 TABLET BY MOUTH EVERY DAY 30 Tablet 10/10/19 25 Active tiZANidine (ZANAFLEX) 4 mg Oral Tablet Take 1 Tablet by mouth nightly as needed for Muscle spasms. 30 Tablet 10/22/19 25 Active PARoxetine (PAXIL) 20 mg Oral Tablet TAKE 1 TABLET BY MOUTH EVERY DAY 30 Tablet 11/06/19 25 Active methylPREDNISol one (MEDROL DOSPACK) 4 mg Oral Tablets, Dose Pack See package instructions 21 Tablet 11/06/19 25 Active methocarbamoL (ROBAXIN) 750 mg Oral Tablet Take 1 Tablet by mouth 3 times daily as needed for Pain for up to 30 days. 20 Tablet 11/07/19 25 2024 Active acetaminophen (TYLENOL) 500 mg Oral Tablet Take 1 Tablet by mouth every 6 hours as needed for Pain for up to 30 days. 30 Tablet 11/07/19 25 2024 Active gabapentin (NEURONTIN) 400 mg Oral Capsule TAKE 1 CAPSULE BY MOUTH 3 TIMES DAILY FOR 90 DAYS. 90 Capsule 2 11/15/19 25 2024 Active gabapentin (NEURONTIN) 400 mg Oral Capsule Take 1 Capsule by mouth 3 times daily for 90 days. 90 Capsule 2 07/17/19 25 2024 Discontinued PARoxetine (PAXIL) 20 mg Oral Tablet TAKE 1 TABLET BY MOUTH EVERY DAY 30 Tablet 10/09/19 25 2024 Discontinued Active Problems Problem Noted Date Diagnosed Date Female cystocele 01/24/2024 Rectocele 01/24/2024 Stress incontinence in female 01/24/2024 Gastroesophageal reflux disease without esophagi tis 04/04/2023 Mood disorder 04/04/2023 Peripheral neuropathy 04/04/2023 RLS (restless legs syndrome) 04/04/2023 Mild intermittent asthma with acute exacerbation 04/04/2023 Assessment & Plan (03/19/2024 10:47 AM EST): To finish doxy and prednisone Added airsupra for rescue, given spacer Orders: albuterol-budesonide (AIRSUPRA) 90-80 mcg/actuation Inhl HFA Aerosol Inhaler; Inhale 2 Puffs into the lungs every 6 hours as needed. Prediabetes 10/28/2022 Overview (10/28/2022): Lab Results Component Value Date HGBA1C 5.9 10/28/2022 HGBA1C 5.8 (H) 06/14/2022 HGBA1C 5.8 (H) 04/30/2020 Diet control Stasis dermatitis of both legs 07/02/2021 Assessment & Plan (07/02/2021 1:16 PM EST): Compression stocking Limit salt Keep skin hydrated Medication management 04/30/2020 Overview (12/21/2022): Gabapentin for chronic pain/neuropathy CSA: Signed 04/30/20 HB-1: Collected 06/14/22 OFV: 12/21/22 Cholo: reviewed, as expected, see flowsheet. Situational anxiety 01/10/2019 Overview (06/14/2022): Stable on low dose paxil. Chronic midline low back pain with left-sided sc iatica 07/03/2018 Overview (06/14/2022): S/p laminectomy/discectomy 2014 Chronic pain. Stable on gabapentin and mobic. Assessment & Plan (08/23/2019 3:59 PM EDT): Having acute on chronic pain. No new injury. No fever. Normal neuro exam. Will treat acute symptoms with steroids, switch to flexeril and given short course of tramadol for moderate to severe pain. Cautioned on risk and side effects. cholo reviewed and as expected. 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 Asthma 05/23/2011 Class 3 severe obesity due t o excess calories with body mass index (BMI) of 60.0 to 69.9 in adult Overview (10/28/2022): Unable to get GLP covered. Recommend bariatric follow-up, referral placed Resolved Problems Problem Noted Date Diagnosed Date Resolved Date Non-recurrent acute suppurat alirio otitis media of right ear without spontaneous rupture of tympanic membrane 09/01/2023 03/13/2024 Acute respiratory failure with hypoxia 04/04/2023 03/13/2024 Multifocal pneumonia 04/03/2023 024 Abnormal uterine bleeding (AUB) 07/28/2020 09/08/2020 Overview (07/28/2020): Added automatically from request for surgery [id number] History of endometrial ablation 07/28/2020 09/08/2020 Overview (07/28/2020): Added automatically from request for surgery [id number] Intramural leiomyoma of uterus 07/28/2020 09/08/2020 Overview (07/28/2020): Added automatically from request for surgery [id number] Post-menopause bleeding 04/30/202008/22 Overview (04/30/2020): S/p partial bilateral salpingectmy with right oopherectomy with D&C and endometrial ablation Estrogen level 04/2018 in menopause range Assessment & Plan (04/30/2020 10:02 AM EST): Check labs Get pelvic ultrasound Pap smear completed. Endometritis 08/21/2015 04/30/2020 Cyst of right ovary 07/28/2015 04/30/19 21 Pelvic pain in female 07/28/20152018 Abnormal uterine bleeding (AUB) 07/28/2015 01/10/2019 Chest pain 10/17/2014 07/18/2016 Chest pain at rest 10/17/2014 7 URI (upper respiratory infection) 03/02/2012 05/30/2012 Immunizations Immunization Administration Dates Next Due Influenza Vaccine Quadrivalent 02/28/2018 Influenza Vaccine, Unspecifi ed Formulation 01/25/2013 Influenza, Injectable, MDCK, PF, Quadrivalent 04/03/2023(Deferred: Contraindication - has pneumonia) Pneumococcal Polysaccharide 23 Valent 02/28/2018 Tdap 10/20/2014 Family History Medical History Relation Name Comments Thyroid Disease Brother 1 Terrence Monteiro jr Thyroid Disease Brother 2 Asthma Father Terrence monteiro Diabetes Father Terrence monteiro Heart Disease Father Terrence monteiro High Blood Pressure Father Terrence monteiro High Cholesterol Father Terrence monteiro Kidney Disease Father Terrence monteiro Stroke Father Terrence monteiro Heart Disease Maternal Grandmother Kassandra Angel Arthritis Mother Debalvinoha Monteiro Diabetes Paternal Grandmother Kassandra Angel Heart Disease Paternal Grandmother Kassandra Angel High Blood Pressure Paternal Grandmother Kassandra Manuel s Diabetes Paternal Uncle Brayden Monteiro Heart Disease Paternal Uncle Brayden Monteiro High Blood Pressure Paternal Uncle Brayden Monteiro High Cholesterol Paternal Uncle Brayden Monteiro Anesth Problems Neg Hx Relation Name Status Comments Brother 1 Terrence Monteiro jr Brother 2 Alive Father Terrence monteiro Alive dad has histor y of blood clot in his arm. Maternal Grandmother Kassandra Angel Alive Mother Tomasa Monteiro Alive mother has a history of blood clots in legs.. Paternal Grandmother Kassandra Angel Alive Paternal Uncle Brayden Monteiro Alive Social History Smoking Status as of 11/16/2024 Tobacco Use Types Packs/Day Years Used Date Smoking Tobacco: Never Assessed Overall Financial Resource Strain (CARDIA) Answe r Date Recorded How hard is it for you to pa y for the very basics like food, housing, medical care, and heating? Not hard at all 04/04/2023 PHQ-2 Answer Date Recorded PHQ-2 Total Score 0 04/04/2023 [facility] [place] [facility] - Occupational Stress [...] things needed for daily living? No 04/04/2023 Sex and Gender Information Value Date Recorded Sex Assigned at Not on file Legal Sex Female 4:39 PM EDT Gender Identity Not on file Sexual Orientation Not on file Last Filed Vital Signs Vital Sign Reading Time Taken Comments Blood Pressure 115/75 11/06/2024 12:20 PM EDT Pulse 80 11/12/2024 11:16 AM EDT Temperature 36.4 C (97.5 F) 11/06/2024 12:20 PM EDT Respiratory Rate 16 11/12/2024 11:16 AM EDT Oxygen Saturation 99% 11/12/2024 11:16 AM EDT Inhaled Oxygen Concentration - - Weight 166.5 kg (367 lb) 11/06/2024 12:20 PM EDT Height 165.1 cm (5' 5 ) 11/06/2024 12:20 PM EDT Body Mass Index 61.07 11/06/2024 12:20 PM EDT Plan of Treatment Upcoming Encounters Date Type Department Care Team (Late st Contact Info) Description 11/21/2024 1:45 PM EDT Office Visit [facility] [address] [place] [id number] Arminda Wilson APRN [address] [place] [address] 02/10/2025 1:30 PM EDT Office Visit [facility] [address] [place] [address] Judith Lomax MD [address] [place] [address] Medical Devices Implanted Type Area Merchandising Stock Associate Device Identifier Shelf Expiration Date Model / Serial / Lot [place] [employer] 5.5 Br - [id number] Implanted:Qty: 1 on 02/04/2013 by Kendall Garcia MD at [facility] Right: Shoulder J&J:ETHICON:AASHISH EK PRDT [id number] 08/22/2015 [id number] / / [id number] System Fixation Speedbridge Jumpstart Biocomposite Achilles - [id number] Implanted:Qty: 1 on 09/28/2018 by Parveen Marsh MD at [facility] Left: Achilles Tendon ARTHREX 03/23/2020 [id number] J-CP / / [id number] Felecia Blue Tv Transvaginal Mesh Sling - [id number] Implanted:Qty: 1 on 04/04/2024 by Elmira Mendoza MD at [facility] 05/03/2026 [facility]-[id number] TV / / [id number] Procedures Procedure Name Priority Date/Time Associated Diagnosis Comments CT LOWER EXTREMITY RIGHT WO CONTRAST STAT 11/06/2024 2:38 PM EDT XR ANKLE RIGHT AP LATERAL AND OBLIQUE FELI 11/06/2024 12:59 PM EDT XR KNEE RIGHT AP LAT INT EXT OBLIQUES AND SUNRISE FELI 11/06/2024 12:52 PM EDT XR HIP RIGHT AP LATERAL W AP PELVIS FELI 11/06/2024 12:51 PM EDT MM MAMMO DIGITAL TRACIE SCREEN BILAT Routine 10/30/2024 10:03 AM EDT Encounter for screening mammogram for malignant neoplasm of breast THYROID STIMULATING HORMONE Routine 10/07/2024 9:00 AM EDT 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 SCANNED EKG 09/17/2024 9:34 AM EDT TROPONIN-T HIGH SENSITIVITY 2HR Timed 09/16/2024 12:[address] ANGIOGRAM PULMONARY W CONTRAST STAT 09/16/2024 11:41 AM EDT XR CHEST PA AND LATERAL STAT 09/16/2024 10:49 AM EDT D-DIMER STAT 09/16/2024 10:23 AM EDT TROPONIN-T HIGH SENSITIVITY BASELINE W/ REFLEX STAT 09/16/2024 10:23 AM EDT BASIC METABOLIC PANEL STAT 09/16/2024 10:23 AM EDT CBC WITH DIFF STAT 09/16/2024 10:23 AM EDT SALINE LOCK IV STAT 09/16/2024 10:04 AM EDT EK EKG 12 LEAD STAT 09/16/2024 9:26 AM EDT CAST APPLICATION Routine 09/03/2024 2:30 PM EDT Stress reaction of left foot, initial encounter Sprain of tarsometatarsal ligament of left foot, initial encounter CAST APPLICATION Routine 09/03/2024 10:30 AM EDT Stress reaction of left foot, initial encounter Sprain of tarsometatarsal ligament of left foot, initial encounter Left foot pain XR FOOT LEFT AP LATERAL AND OBLIQUE Routine 09/03/2024 10:26 AM EDT Stress reaction of left foot, initial encounter Peroneal tendinitis of left lower extremity XR ANKLE LEFT AP LATERAL AND OBLIQUE Routine 09/03/2024 10:26 AM EDT Stress reaction of left foot, initial encounter Peroneal tendinitis of left lower extremity XR FOOT LEFT AP LATERAL AND OBLIQUE FELI 08/20/2024 2:04 PM EDT THYROID STIMULATING HORMONE Routine 07/16/2024 10:11 AM EDT 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 SEP ELLIS FLU+SARS ANTIGEN Routine 06/07/2024 11:33 AM EST Body aches SEP ELLIS FLU+SARS ANTIGEN Routine 05/22/2024 11:35 AM EST Nasal congestion URINALYSIS Routine 05/15/2024 11:41 AM EST Dysuria URINE CULTURE (NO STAIN) Routine 05/15/2024 11:41 AM EST Dysuria URINE CULTURE (NO STAIN) Routine 05/14/2024 2:33 PM EST Acute cystitis with hematuria SEP URINALYSIS POC Routine 05/14/2024 2:26 PM EST Acute cystitis with hematuria CT ABDOMEN W CONTRAST Routine 05/02/2024 2:39 PM EST Abdominal pain, LUQ (left upper quadrant) HEMOGLOBIN A1C Routine 04/26/2024 2:02 PM EST Elevated glucose LIPASE LEVEL Routine 04/26/2024 2:02 PM EST Abdominal pain, LUQ (left upper quadrant) AMYLASE LEVEL Routine 04/26/2024 2:02 PM EST Abdominal pain, LUQ (left upper quadrant) COMPREHENSIVE METABOLIC PANEL Routine 04/26/2024 2:02 PM EST Abdominal pain, LUQ (left upper quadrant) SCANNED RHYTHM STRIPS 04/05/2024 10:58 AM EST INTRAOP AIRWAY PLACEMENT Routine 04/04/2024 12:30 PM EST URETHROPEXY USING TENSION FREE VAGINAL TAPE VIA RETROPUBIC SPACE WITH CYSTOSCOPY 04/04/2024 12:16 PM EST Female cystocele Rectocele Stress incontinence in female Special Needs *Note to Anesthesia: Patient needs Paralysis for Procedure MO CYSTOURETHROSCOPY 04/04/2024 12:16 PM EST Female cystocele Rectocele Stress incontinence in female Special Needs *Note to Anesthesia: Patient needs Paralysis for Procedure MO SLING OPERATION STRESS INCONTINENCE 04/04/2024 12:16 PM EST Female cystocele Rectocele Stress incontinence in female Special Needs *Note to Anesthesia: Patient needs Paralysis for Procedure MO CMBND ANTERPOST COLPORRAPHY W/CYSTO 04/04/2024 12:16 PM EST Female cystocele Rectocele Stress incontinence in female Special Needs *Note to Anesthesia: Patient needs Paralysis for Procedure XR CHEST PA AND LATERAL FELI 03/14/2024 2:39 PM EST [id number] A/B Routine 03/14/2024 2:35 PM EST SALINE LOCK IV STAT 03/14/2024 2:20 PM EST BASIC METABOLIC PANEL Routine 03/13/2024 1:44 PM EST Pre-op examination CBC Routine 03/13/2024 1:44 PM EST Pre-op examination POCT EKG Routine 03/13/2024 1:17 PM EST Pre-op examination THYROID STIMULATING HORMONE Routine 02/05/2024 10:26 AM EDT 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 ANTINUCLEAR ANTIBODIES (YNES), HEP-2 SUBSTRATE, BY IFA Routine 12/12/2023 11:00 AM EDT Joint swelling ANTINUCLEAR ANTIBODIES (YNES) SCREEN BY KORTNEY W/ REFLEX TO IFA Routine 12/12/2023 11:00 AM EDT Joint swelling C-REACTIVE PROTEIN Routine 12/12/2023 11:00 AM EDT Joint swelling SEDIMENTATION RATE AUTOMATED Routine 12/12/2023 11:00 AM EDT Joint swelling CYCLIC CITRULLINATED PEPTIDE ANTIBODY, IGG Routine 12/12/2023 11:00 AM EDT Joint swelling RHEUMATOID FACTOR QUANTITATIVE Routine 12/12/2023 11:00 AM EDT Joint swelling POCT ELLIS SARS ANTIGEN Routine 11/03/2023 11:14 AM EDT Acute cough POCT ELLIS INFLUENZA A/B Routine 11/03/2023 10:01 AM EDT Acute cough THYROID STIMULATING HORMONE Routine 10/12/2023 9:27 AM EDT 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 XR CHEST PA AND LATERAL Routine 10/10/2023 11:50 AM EDT Costochondritis Bronchitis SEP URINALYSIS POC Routine 10/03/2023 9:17 AM EDT Stress incontinence in female COLOGUARD Routine 09/12/2023 10:45 PM EDT Screening for colon cancer BASIC METABOLIC PANEL Early AM 09/02/2023 6:22 AM EDT CBC WITH DIFF Early AM 09/02/2023 6:22 AM EDT ADMIT Routine 09/01/2023 4:[address] CHEST W CONTRAST STAT 09/01/2023 3:40 PM EDT BASIC METABOLIC PANEL STAT 09/01/2023 2:39 PM EDT CBC WITH DIFF STAT 09/01/2023 2:39 PM EDT XR CHEST AP PORTABLE STAT 09/01/2023 12:05 PM EDT THYROID STIMULATING HORMONE Routine 08/21/2023 12:23 PM EDT 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 THYROID STIMULATING HORMONE Routine 06/16/2023 11:10 AM EST Primary hypothyroidism CT CHEST WO CONTRAST Routine 05/02/2023 5:45 PM EST Cough, persistent NT PROBNP Routine 04/26/2023 2:34 PM EST Peripheral edema CBC WITH DIFF Routine 04/26/2023 2:34 PM EST Subacute cough CPAP TITRATION Routine 04/20/2023 9:20 AM EST Excessive sleepiness Obesity, morbid, BMI 50 or higher (HCC) TANIA (obstructive sleep apnea) Primary snoring THYROID STIMULATING HORMONE Routine 04/14/2023 3:29 PM EST Primary hypothyroidism ECG AND WAVEFORMS - TELEMETRY Routine 04/04/2023 7:00 PM EST ADMIT Routine 04/04/2023 1:58 PM EST SCANNED EKG 04/04/2023 9:12 AM EST ECG AND WAVEFORMS - TELEMETRY Routine 04/04/2023 7:00 AM EST ECG AND WAVEFORMS - TELEMETRY Routine 04/04/2023 1:23 AM EST ADMIT Routine 04/03/2023 4:26 PM EST TROPONIN-T HIGH SENSITIVITY 2HR Timed 04/03/2023 3:[address] ANGIOGRAM PULMONARY W CONTRAST STAT 04/03/2023 2:57 PM EST D-DIMER STAT 04/03/2023 1:45 PM EST XR CHEST AP PORTABLE FELI 04/03/2023 12:54 PM EST TROPONIN-T HIGH SENSITIVITY BASELINE W/ REFLEX STAT 04/03/2023 12:50 PM EST BASIC METABOLIC PANEL STAT 04/03/2023 12:50 PM EST CBC STAT 04/03/2023 12:50 PM EST [id number] A/B Routine 04/03/2023 12:50 PM EST EK EKG 12 LEAD STAT 04/03/2023 11:40 AM EST ACUTE HEPATITIS PANEL Routine 03/22/2023 3:16 PM EST Bilirubin in urine COMPREHENSIVE METABOLIC PANEL Routine 03/22/2023 3:16 PM EST Bilirubin in urine SEP URINALYSIS POC Routine 03/22/2023 2:48 PM EST Dark urine SALINE LOCK IV STAT 02/24/2023 12:34 PM EDT EC ECHOCARDIOGRAM COMPLETE W DOPPLER AND COLOR FLOW MAPPING Routine 02/14/2023 9:22 AM EDT Peripheral edema PROTEIN/CREATININE RATIO URINE Routine 02/09/2023 10:14 AM EDT Positive YNES (antinuclear antibody) URINALYSIS Routine 02/09/2023 10:14 AM EDT Positive YNES (antinuclear antibody) T4, FREE (THYROXINE) Routine 02/09/2023 10:00 AM EDT Positive YNES (antinuclear antibody) SYPHILIS SCREEN WITH REFLEX RPR QUANT Routine 02/09/2023 10:00 AM EDT Positive YNES (antinuclear antibody) CARDIOLIPIN ANTIBODY, IGA-REF LAB Routine 02/09/2023 10:00 AM EDT Positive YNES (antinuclear antibody) CARDIOLIPIN ANTIBODIES IGG/ IGM-REF LAB Routine 02/09/2023 10:00 AM EDT Positive YNES (antinuclear antibody) LUPUS ANTICOAGULANT PANEL -REF LAB Routine 02/09/2023 10:00 AM EDT Positive YNES (antinuclear antibody) [id number] 1 ABS, IGG/IGM/IGA -REF LAB Routine 02/09/2023 10:00 AM EDT Positive YNES (antinuclear antibody) THYROID PEROXIDASE (TPO) ANTIBODY Routine 02/09/2023 10:00 AM EDT Positive YNES (antinuclear antibody) TSH REFLEX TO FT4 Routine 02/09/2023 10:00 AM EDT Positive YNES (antinuclear antibody) COMPLEMENT PANEL Routine 02/09/2023 10:00 AM EDT Positive YNES (antinuclear antibody) RIBONUCLEIC PROTEIN ANTIBODY, IGG -REF LAB Routine 02/09/2023 10:00 AM EDT Positive YNES (antinuclear antibody) GARZA ANTIBODY, IGG -REF LAB Routine 02/09/2023 10:00 AM EDT Positive YNES (antinuclear antibody) DSDNA AB REFLEX TO TITER -REF LAB Routine 02/09/2023 10:00 AM EDT Positive YNES (antinuclear antibody) SS-B (LA) ANTIBODIES, IGG, SERUM Routine 02/09/2023 10:00 AM EDT Positive YNES (antinuclear antibody) SS-A 52 AND 60 (RO) ANTIBODIES, IGG, SERUM Routine 02/09/2023 10:00 AM EDT Positive YNES (antinuclear antibody) POLYSOMNOGRAPHY 4 OR MORE PARAMETERS Routine 01/24/2023 9:25 AM EDT Excessive sleepiness Primary snoring Obstructive sleep apnea Morbid obesity (HCC) XR CHEST AP PORTABLE FELI 01/15/2023 3:[address] SOFT TISSUE NECK W CONTRAST Routine 12/03/2022 8:11 AM EDT Pharyngeal dysphagia POCT GLYCATED HEMOGLOBIN, TOTAL Routine 10/28/2022 11:55 AM EDT Prediabetes POCT URINALYSIS AUTOMATED Routine 10/28/2022 11:48 AM EDT Urinary frequency URINE CULTURE (NO STAIN) Routine 10/28/2022 11:48 AM EDT Urinary frequency MISCELLANEOUS LAB Routine 09/22/2022 3:06 PM EDT Stasis dermatitis of both legs VITAMIN B12/ FOLIC ACID Routine 09/22/2022 3:06 PM EDT Stasis dermatitis of both legs CYCLIC CITRULLINATED PEPTIDE ANTIBODY, IGG Routine 09/22/2022 3:06 PM EDT Red face ANTINUCLEAR ANTIBODIES (YNES) SCREEN BY KORTNEY W/ REFLEX TO IFA Routine 09/22/2022 3:06 PM EDT Red face T4, FREE (THYROXINE) Routine 09/22/2022 3:06 PM EDT Acquired hypothyroidism TSH REFLEX TO FT4 Routine 09/22/2022 3:06 PM EDT Acquired hypothyroidism MM MAMMO DIGITAL TRACIE SCREEN BILAT Routine 09/16/2022 3:15 PM EDT Encounter for screening mammogram for breast cancer XR KNEE LEFT AP LATERAL AND SUNRISE STANDING Routine 08/19/2022 2:43 PM EDT Acute pain of left knee MO ARTHROCENTESIS ASPIR&/INJ MAJOR JT/BURSA W/O US Routine 08/19/2022 2:15 PM EDT Acute pain of left knee COMPLIANCE PANEL, URINE Routine 06/14/2022 2:28 PM EST Chronic midline low back pain with left-sided sciatica Medication management T4, FREE (THYROXINE) Routine 06/14/2022 2:23 PM EST Acquired hypothyroidism TSH REFLEX TO FT4 Routine 06/14/2022 2:23 PM EST Acquired hypothyroidism LIPID PANEL REFLEX Routine 06/14/2022 2:23 PM EST Lipid screening HEMOGLOBIN A1C Routine 06/14/2022 2:23 PM EST Elevated glucose COMPREHENSIVE METABOLIC PANEL Routine 06/14/2022 2:23 PM EST Annual physical exam CBC WITH DIFF Routine 06/14/2022 2:23 PM EST Annual physical exam LIPID SCREEN Routine 07/16/2021 1:40 PM EDT Lipid screening COMPREHENSIVE METABOLIC PANEL Routine 07/16/2021 1:40 PM EDT Well adult exam CBC WITH DIFF Routine 07/16/2021 1:40 PM EDT Well adult exam COMPLIANCE PANEL, URINE Routine 07/02/2021 1:44 PM EST Chronic midline low back pain with left-sided sciatica Medication management T4, FREE (THYROXINE) Routine 06/29/2021 11:59 AM EST Acquired hypothyroidism THYROID STIMULATING HORMONE Routine 06/29/2021 11:59 AM EST Acquired hypothyroidism CORONAVIRUS 2019 Routine 04/06/2021 10:53 AM EST Exposure to COVID-19 virus XR CHEST AP PORTABLE FELI 02/12/2021 2:32 PM EDT CORONAVIRUS 2019 Routine 02/12/2021 2:05 PM EDT POCT ELLIS SARS ANTIGEN Routine 02/01/2021 2:47 PM EDT Suspected COVID-19 virus infection POCT ELLIS SARS ANTIGEN Routine 01/11/2021 4:00 PM EDT Suspected COVID-19 virus infection T4, FREE (THYROXINE) Routine 11/18/2020 4:33 PM EDT Acquired hypothyroidism TSH REFLEX TO FT4 Routine 11/18/2020 4:33 PM EDT Acquired hypothyroidism WOUND CULTURE (STAIN INCLUDED) Routine 09/08/2020 1:21 PM EDT S/P laparoscopic hysterectomy Wound drainage SCANNED RHYTHM STRIPS 08/12/2020 6:12 PM EDT PATHOLOGY TISSUE REQUEST Routine 08/11/2020 9:57 AM EDT Abnormal uterine bleeding (AUB) History of endometrial ablation Intramural leiomyoma of uterus INTRAOP AIRWAY PLACEMENT Routine 08/11/2020 8:21 AM EDT DAVINCI ROBOTIC TOTAL HYSTERECTOMY 08/11/2020 7:55 AM EDT Abnormal uterine bleeding (AUB) History of endometrial ablation Intramural leiomyoma of uterus CORONAVIRUS 2019 Routine 08/07/2020 1:56 PM EDT Pre-op testing Encounter for laboratory testing for COVID-19 virus HUMAN CHORIONIC GONADOTROPIN QUANTITATIVE Routine 08/05/2020 11:20 AM EDT Preop testing BB HISTORY CHECK Routine 08/05/2020 11:05 AM EDT Preop testing SURGERY DATE Routine 08/05/2020 11:05 AM EDT Preop testing ANTIBODY SCREEN IGG Routine 08/05/2020 11:05 AM EDT Preop testing ABORH Routine 08/05/2020 11:05 AM EDT Preop testing PREADMISSION TYPE AND SCREEN Routine 08/05/2020 11:05 AM EDT Preop testing CBC WITH DIFF Routine 08/05/2020 11:05 AM EDT Preop testing PATHOLOGY TISSUE REQUEST Routine 07/23/2020 3:24 PM EDT Abnormal uterine bleeding (AUB) MOLECULAR VAGINITIS PANEL (MVP) Routine 07/23/2020 3:24 PM EDT Vaginal discharge TRICHOMONAS AG STAT 06/25/2020 6:00 PM EST GRAM STAIN (STAIN ONLY) STAT 06/25/2020 6:00 PM EST CHLAMYDIA/GC BY TMA STAT 06/25/2020 6:00 PM EST CHLAMYDIA/GC STAT 06/25/2020 6:00 PM EST BB HISTORY CHECK STAT 06/25/2020 5:51 PM EST ABORH STAT 06/25/2020 5:51 PM EST CBC WITH DIFF STAT 06/25/2020 5:51 PM EST BASIC METABOLIC PANEL STAT 06/25/2020 5:51 PM EST HUMAN CHORIONIC GONADOTROPIN QUANTITATIVE STAT 06/25/2020 5:51 PM EST URINALYSIS STAT 06/25/2020 5:44 PM EST EXTRA STARK URINE CX STAT 06/25/2020 5:44 PM EST LH/FSH Routine 06/10/2020 2:01 PM EST Abnormal uterine bleeding (AUB) US PELVIS AND TRANSVAGINAL NON OB COMPLETE Routine 05/15/2020 10:19 PM EST Post-menopause bleeding POCT ELLIS SARS ANTIGEN Routine 05/07/2020 5:03 PM EST Cough T4, FREE (THYROXINE) Routine 04/30/2020 10:10 AM EST Acquired hypothyroidism HEMOGLOBIN A1C Routine 04/30/2020 10:10 AM EST Elevated glucose COMPLIANCE PANEL, URINE Routine 04/30/2020 10:10 AM EST Peripheral neuropathy, idiopathic Medication management TSH REFLEX TO FT4 Routine 04/30/2020 10:10 AM EST Acquired hypothyroidism ESTRADIOL LEVEL Routine 04/30/2020 10:10 AM EST Post-menopause bleeding COMPREHENSIVE METABOLIC PANEL Routine 04/30/2020 10:10 AM EST Obesity, morbid, BMI 50 or higher (HCC) CBC WITH DIFF Routine 04/30/2020 10:10 AM EST Post-menopause bleeding LICENSED MARRIAGE AND FAMILY THERAPIST CYTOLOGY REQUEST (PAP ONLY) Routine 04/30/2020 9:55 AM EST Post-menopause bleeding Cervical cancer screening [facility] LICENSED MARRIAGE AND FAMILY THERAPIST CYTOLOGY ORDER Routine 04/30/2020 9:55 AM EST Post-menopause bleeding Cervical cancer screening POCT ELLIS SARS ANTIGEN Routine 03/18/2020 12:08 PM EST Acute bronchitis, unspecified organism WOUND CULTURE (STAIN INCLUDED) Routine 09/12/2019 2:11 PM EDT Abscess of arm, right BASIC METABOLIC PANEL STAT 09/08/2019 3:55 PM EDT CBC STAT 09/08/2019 3:55 PM EDT THYROID STIMULATING HORMONE Routine 06/28/2019 1:17 PM EST Acquired hypothyroidism POCT INFLUENZA A/B Routine 06/12/2019 5:03 PM EST Body aches XR RADIUS ULNA RIGHT AP AND LATERAL Routine 03/18/2019 12:13 PM EST Right arm pain XR ELBOW RIGHT AP LATERAL AND OBLIQUES Routine 03/18/2019 12:13 PM EST Right arm pain COMPREHENSIVE METABOLIC PANEL Routine 01/14/2019 9:52 AM EDT Annual physical exam T4, FREE (THYROXINE) Routine 01/14/2019 9:52 AM EDT Acquired hypothyroidism THYROID STIMULATING HORMONE Routine 01/14/2019 9:52 AM EDT Acquired hypothyroidism LIPID SCREEN Routine 01/14/2019 9:52 AM EDT Lipid screening CBC WITH DIFF Routine 01/14/2019 9:52 AM EDT Annual physical exam SCANNED RHYTHM STRIPS 11/04/2018 6:02 PM EDT WOUND CULTURE (STAIN INCLUDED) Routine 11/02/2018 7:43 AM EDT Deep postoperative wound infection ANAEROBIC CULTURE (NO STAIN) Routine 11/02/2018 7:43 AM EDT Deep postoperative wound infection INTRAOP AIRWAY PLACEMENT Routine 11/02/2018 7:35 AM EDT ANKLE/ HEEL/CALCANEUS DEBRIDEMENT INCISION AND DRAINAGE 11/02/2018 7:24 AM EDT Deep postoperative wound infection Special Needs SUPINE, 3L BAG SALINE WITH CYSTO TUBING SCANNED EKG 10/08/2018 9:53 AM EDT VA US LOWER EXTREMITY VENOUS LEFT Routine 10/06/2018 1:15 PM EDT Left leg pain CT ANGIOGRAM PULMONARY W CONTRAST STAT 10/05/2018 11:36 PM EDT BASIC METABOLIC PANEL STAT 10/05/2018 10:42 PM EDT CBC WITH DIFF STAT 10/05/2018 10:42 PM EDT EK EKG 12 LEAD STAT 10/05/2018 9:59 PM EDT SCANNED RHYTHM STRIPS 09/29/2018 4:23 PM EDT INTRAOP AIRWAY PLACEMENT Routine 09/28/2018 11:07 AM EDT PERIPHERAL BLOCK Routine 09/28/2018 10:58 AM EDT ACHILLES TENDON RECONSTRUCTION WITH FLEXOR HALLUCIS LONGUS TENDON TRANSFER AND EXCISION HAGLUNDS DEFORMITY CALCANEUS 09/28/2018 10:36 AM EDT Left Achilles tendinitis Calcaneal spur, left Special Needs PRONE, MICRO SAW, ARTHREX YESI COOKBRIDGE, ARTHREX NOTIFIED 6/5 MAS ESTROGENS, FRACTIONATED BY TMS -REF LAB Routine 04/30/2018 12:00 PM EST Menopausal symptoms T4, FREE (THYROXINE) Routine 04/30/2018 12:00 PM EST Acquired hypothyroidism THYROID STIMULATING HORMONE Routine 04/30/2018 12:00 PM EST Acquired hypothyroidism EK EKG 12 LEAD STAT 04/27/2018 9:16 PM EST SCANNED EKG 03/05/2018 10:07 AM EST XR CHEST PA AND LATERAL FELI 03/04/2018 11:25 AM EST EK EKG 12 LEAD STAT 03/04/2018 11:00 AM EST SCANNED RADIOLOGY REPORT 06/30/2017 12:54 PM EST NM MYOCARDIAL PERFUSION SPECT STRESS AND REST STAT 06/30/2017 11:[address] STRESS TEST EXERCISE STAT 06/30/2017 10:55 AM EST TROPONIN-T Timed 06/30/2017 2:20 AM EST EK EKG 12 LEAD Routine 06/30/2017 1:22 AM EST TROPONIN-T STAT 06/30/2017 12:04 AM EST TROPONIN-T STAT 06/29/2017 10:04 PM EST BASIC METABOLIC PANEL STAT 06/29/2017 10:04 PM EST XR CHEST PA AND LATERAL FELI 06/29/2017 9:20 PM EST CBC WITH DIFF STAT 06/29/2017 9:09 PM EST EK EKG 12 LEAD STAT 06/29/2017 8:46 PM EST SALINE LOCK IV STAT 06/29/2017 8:46 PM EST POCT INFLUENZA A/B Routine 05/02/2017 3:56 PM EST Exposure to the flu DIFFERENTIAL Routine 06/06/2016 4:01 PM EST VITAMIN B12/ FOLIC ACID Routine 06/06/2016 4:01 PM EST Peripheral neuropathy, idiopathic HEMOGLOBIN A1C Routine 06/06/2016 4:01 PM EST Peripheral neuropathy, idiopathic THYROID STIMULATING HORMONE Routine 06/06/2016 4:01 PM EST Acquired hypothyroidism T4, FREE (THYROXINE) Routine 06/06/2016 4:01 PM EST Acquired hypothyroidism T3 FREE Routine 06/06/2016 4:01 PM EST Acquired hypothyroidism CBC WITH DIFF Routine 06/06/2016 4:01 PM EST Peripheral neuropathy, idiopathic BASIC METABOLIC PANEL Routine 06/06/2016 4:01 PM EST Peripheral neuropathy, idiopathic SCANNED RHYTHM STRIPS 04/04/2016 12:54 PM EST DIFFERENTIAL Routine 03/31/2016 8:49 AM EST C-REACTIVE PROTEIN Routine 03/31/2016 8:49 AM EST SEDIMENTATION RATE AUTOMATED Routine 03/31/2016 8:49 AM EST BASIC METABOLIC PANEL Routine 03/31/2016 8:49 AM EST CBC WITH DIFF Routine 03/31/2016 8:49 AM EST VANCOMYCIN LEVEL TROUGH Timed 03/30/2016 9:32 AM EST IP CONSULT TO INFECTIOUS DISEASES Routine 03/29/2016 9:36 PM EST Procedure Note - Rob Pride MD - 03/30/2016 7:43 AM ESTThis note is in progress. Dictated [id number] 1) Lumbar wound infection: S/P OR and placed on vancomycin, ceftriaxone.Gram stain with GPC. Suspect may be MSSA as 12/2015 culture with thisorganism. If so can stop vancomycin and narrow to B-lactam therapy withcefazolin. Check ESR and CRP. Will d/w neurosurg. If concern for deepextension then PICC and 6 weeks IV therapy. If all incisional then aftercourse of IV then po. Will follow WOUND CULTURE (STAIN INCLUDED) Routine 03/29/2016 6:09 PM EST ANAEROBIC CULTURE (NO STAIN) Routine 03/29/2016 6:09 PM EST LUMBAR MASS EXCISION/WOUND INCISION & DRAINAGE 03/29/2016 5:47 PM EST LUMBAR WOUND BASIC METABOLIC PANEL Timed 03/29/2016 5:43 AM EST WOUND CULTURE (STAIN INCLUDED) Routine 03/28/2016 5:45 PM EST BLOOD CULTURE (NO STAIN) Routine 03/27/2016 1:24 PM EST MRI LUMBAR SPINE W WO CONTRAST STAT 03/27/2016 12:37 PM EST IP CONSULT TO PHARMACY Routine 03/27/2016 11:55 AM EST XR CHEST PA AND LATERAL FELI 03/27/2016 11:05 AM EST SMEAR REVIEW STAT 03/27/2016 9:30 AM EST DIFFERENTIAL STAT 03/27/2016 9:30 AM EST LACTIC ACID STAT 03/27/2016 9:30 AM EST COMPREHENSIVE METABOLIC PANEL STAT 03/27/2016 9:30 AM EST CBC WITH DIFF STAT 03/27/2016 9:30 AM EST BLOOD CULTURE (NO STAIN) Routine 03/27/2016 9:30 AM EST INSERT PERIPHERAL IV Routine 03/27/2016 9:25 AM EST SCANNED RHYTHM STRIPS 03/15/2016 1:53 PM EST XR LUMBAR SPINE SINGLE VW STAT 03/11/2016 11:16 AM EST LUMBAR LAMINECTOMY/DISCECTO MY (COVERS FACETECTOMY) 03/11/2016 10:15 AM EST Herniated lumbar intervertebral disc Special Needs DEEPAK 03/03 HOME/CELL DT MRI CERVICAL SPINE WO CONTRAST Routine 03/01/2016 2:27 PM EST Displacement of lumbar intervertebral disc without myelopathy Cervicalgia WOUND CULTURE (STAIN INCLUDED) Routine 12/30/2015 5:02 PM EDT Cellulitis and abscess of trunk POCT GLUCOSE Routine 12/29/2015 4:42 PM EDT Family history of diabetes mellitus Polydipsia MRI LUMBAR SPINE WO CONTRAST Routine 11/27/2015 8:50 AM EDT Numbness and tingling Bilateral low back pain with sciatica, sciatica laterality unspecified EMG Routine 11/10/2015 10:35 AM EDT Fall, subsequent encounter Numbness in left leg XR LUMBAR SPINE AP LATERAL AND OBLIQUES Routine 10/29/2015 3:29 PM EDT Fall, subsequent encounter Left-sided low back pain with left-sided sciatica XR HIP LEFT AP LATERAL W AP PELVIS Routine 10/29/2015 3:29 PM EDT Fall, subsequent encounter Left hip pain POCT GLYCATED HEMOGLOBIN, TOTAL Routine 10/28/2015 4:40 PM EDT Family history of diabetes mellitus Polydipsia XR HIP RIGHT AP LATERAL W AP PELVIS Routine 10/09/2015 3:13 PM EDT Arthralgia of right hip POCT URINALYSIS DIPSTICK Routine 08/21/2015 11:10 AM EDT Dysuria SCANNED RHYTHM STRIPS 08/03/2015 10:03 AM EDT PATHOLOGY TISSUE REPORT Routine 07/29/2015 2:33 PM EDT ENDOMETRIAL ABLATION WITH NOVASURE DILATION AND CURETTAGE HYSTEROSCOPY 07/29/2015 1:48 PM EDT Pelvic Pain Ovarian Cyst, ovarian cyst and left tubal cyst DAVINCI ROBOTIC LAPAROSCOPY 07/29/2015 1:48 PM EDT Pelvic Pain Ovarian Cyst, ovarian cyst and left tubal cyst US PELVIS AND TRANSVAGINAL NON OB COMPLETE STAT 07/28/2015 8:[address] ABD PEL ED FAST W CONTRAST STAT 07/27/2015 5:10 PM EDT URINALYSIS STAT 07/27/2015 4:52 PM EDT CHLAMYDIA/GC BY TMA STAT 07/27/2015 4:40 PM EDT WET PREP STAT 07/27/2015 4:40 PM EDT DIFFERENTIAL STAT 07/27/2015 3:35 PM EDT HCG QUALITATIVE STAT 07/27/2015 3:35 PM EDT BASIC METABOLIC PANEL STAT 07/27/2015 3:35 PM EDT CBC WITH DIFF STAT 07/27/2015 3:35 PM EDT SALINE LOCK IV Routine 07/27/2015 3:21 PM EDT URINE CULTURE (NO STAIN) Routine 07/23/2015 5:17 PM EDT Urinary tract infection with hematuria, site unspecified POCT URINALYSIS DIPSTICK Routine 07/23/2015 5:16 PM EDT Lower abdominal pain CBC Routine 02/05/2015 4:25 PM EDT Breast pain, right PROLACTIN LEVEL Routine 02/05/2015 4:25 PM EDT Breast pain, right LUTEINIZING HORMONE Routine 02/05/2015 4:25 PM EDT Breast pain, right Dysmenorrhea FOLLICLE STIMULATING HORMONE LEVEL Routine 02/05/2015 4:25 PM EDT Breast pain, right Dysmenorrhea THYROID STIMULATING HORMONE Routine 01/20/2015 2:58 PM EDT Acquired hypothyroidism T3 FREE Routine 01/20/2015 2:58 PM EDT Acquired hypothyroidism T4, FREE (THYROXINE) Routine 01/20/2015 2:58 PM EDT Acquired hypothyroidism IRON/UIBC Routine 01/20/2015 2:58 PM EDT Acquired hypothyroidism POCT HEMOCCULT 1-3 CARDS Routine 10/27/2014 3:16 PM EDT Screening for malignant neoplasm of the rectum VITAMIN B12/ FOLIC ACID Routine 10/20/2014 2:32 PM EDT Anemia, unspecified anemia type IRON/UIBC Routine 10/20/2014 2:32 PM EDT Anemia, unspecified anemia type FERRITIN Routine 10/20/2014 2:32 PM EDT Anemia, unspecified anemia type SCANNED EKG 10/19/2014 8:11 AM EDT SCANNED RADIOLOGY REPORT 10/17/2014 1:47 PM EDT SCANNED RHYTHM STRIPS 10/17/2014 12:53 PM EDT NM MYOCARDIAL PERFUSION SPECT STRESS AND REST FELI 10/17/2014 12:[address] STRESS TEST EXERCISE Routine 10/17/2014 11:40 AM EDT SCANNED RHYTHM STRIPS 10/17/2014 6:12 AM EDT T4, FREE (THYROXINE) Routine 10/17/2014 5:05 AM EDT LIPID SCREEN Routine 10/17/2014 5:05 AM EDT MAGNESIUM LEVEL Routine 10/17/2014 5:05 AM EDT HEPATIC FUNCTION PANEL Routine 10/17/2014 5:05 AM EDT THYROID STIMULATING HORMONE Routine 10/17/2014 5:05 AM EDT TROPONIN-T Timed 10/17/2014 1:20 AM EDT IP CONSULT TO CARDIOLOGY Routine 10/17/2014 12:51 AM EDT Procedure Note - Elton Carmichael MD - 10/17/2014 8:07 AM EDTThis note is in progress. CARDIOLOGY CONSULT Gisela Perez Today's Date: 10/17/2014 Date of Admission: 10/17/2014 Primary Care Provider: Abdulkadir Montoya MD (General) Director Strategic Account Management: None Chief Complaint: Chest pain Referring MD: Jeffery Garza HPI: Gisela Perez presents with chest pain that began yesterday afternoonwhile she was talking with a friend. Describes as a mid sternal sharp painwith radiation across the precordium and through to her back. Maybeslightly worse with activity. Tender to palpation on exam. Not pleuriticor positional. Initially associated with nausea. Denies dyspnea,diaphoresis, dizziness and palpitations. Has been constant since onset. Noimprovement with ASA, Morphine or GI cocktail. No prior known ASHD. Noprior cardiac testing. ROS: Denies: Constitutional: fever, chills ENT: headaches, vertigo Cardiovascular: dyspnea, palpitations, edema, orthopnea, lightheaded,syncope Pulmonary: cough, sputum production Gastrointestinal: abdominal pain Genitourinary: change in bladder habits Musculoskeletal: weakness, joint complaints Integumentary: rash Endocrine: fatigue Hematologic/Lymphatic: abnormal bruising Allergic/Immunologic: hives Complains of: chest discomfort No Known Allergies Prior to Admission Medications Medication Sig Dispense Refill Last Dose levothyroxine (SYNTHROID) 75 mcg Oral Tablet TAKE 1 TAB BY MOUTH DAILY.30 Tab 2 10/16/2014 ibuprofen (ADVIL;MOTRIN) 600 mg Oral Tablet Take 1 tablet by mouth every8 hours as needed for Pain for up to 21 doses. 21 tablet 0 Not Taking atUnknown time budesonide (PULMICORT FLEXHALER) 180 mcg/actuation AePB Inhale 1 Puffinto the lungs 2 times daily. 1 Inhaler 0 Not Taking at Unknown time albuterol (PROVENTIL) 2.5 mg /3 mL (0.083 %) nebulizer solution Take 3mL by nebulization every 4 hours. 1 box 2 10/13/2014 Levalbuterol Tartrate 45 mcg/actuation HFAA Inhale 90 mcg into thelungs. States every 6 hours as needed.states I use the nebulizer butstates this is the correct drug and dose. Not Taking at Unknown time Past Medical History: Hypothyroidism GERD Asthma Surgical History: Procedure Laterality Date section Tonsillectomy Tubal ligation Appendectomy Dental surgery 01/29/13 Shoulder arthroscopy Right 02/04/2013 Cholecystectomy, laparoscopic 06/18/2012 Family History: Father - ID - age 35-40 Maternal grandmother - ID, age 60's Social History: Reports that she quit smoking about 15 years ago (smoked for about 8years). She has never used smokeless tobacco. She reports that she doesnot drink alcohol or use illicit drugs. Labs: Lab Results Component Value Date HGB 10.3* 10/16/2014 HCT 32.9* 10/16/2014 PLT 292 10/16/2014 NA 140 10/16/2014 K 4.1 10/16/2014 CREATININE 0.87 10/16/2014 BUN 8 10/16/2014 TSH 8.800* 10/17/2014 Vitals: Filed Vitals: 10/17/14 0034 10/17/14 0132 10/17/14 0600 10/17/14 0727 BP: 115/70 87/56 109/59 Pulse: 81 71 69 Temp: 98.8 F (37.1 C) 98.2 F (36.8 C) 98.3 F (36.8 C) TempSrc: Oral Oral Oral Resp: 20 17 18 18 Height: 5' 6 (1.676 m) Weight: 305 lb (138.347 kg) SpO2: 99% 98% 99% Body mass index is 49.25 kg/(m^2). TELEMETRY: NSR, 70's Physical Exam: GEN: Alert, pleasant and oriented x3. In no acute distress. Corpulent. HEENT: Sclerae anicteric. No xanthelasmas. EOM's intact. NECK: Supple. LUNGS: clear to auscultation. Chest wall nontender. HEART: RRR, no murmur, gallop, or rub. ABD: soft, nontender, positive bowel sounds EXT: no edema, +2 radial, +2 PT pulses NEURO: no obvious focal abnormalities EKG: (#1): NSR, rate 93, inferior NSSTTWA (TW flattening aVF / very minordepression II, aVF - slightly more pronounced than previous tracings) (#2): NSR, rate 90, inferior NSSTTWA CXR: Heart size is within normal limits and the lungs are clear. Assessment: Chest pain - Atypical - Trops neg, EKG with minor inferior abnormality - D dimer neg - Risk Factors: family history in father, remote tobacco use Hypothyroidism - TSH elevated Asthma Plan: - ETT with MPI - Free T4 to follow-up TSH Further input to follow-up from Dr. Nieto / Jany Desai, COAL SAMPLE TESTER 10/17/2014 I have reviewed the chief complaint and history of present illness andreview of systems as well as the past medical/social/family historysections for this patient. I have examined this patient, and participatedin the care of this patient. I have reviewed the pertinent clinicalinformation including physical exam, labs, radiographic and echo studies,and the plan. The patient was seen in coordination with the nursepractitioner. She has chest wall pain reproducible with palpation present without let up~ 24 hours. Troponin is normal, ECG with NSSTTWA. Nuclear GXT inprocess. If GXT is normal, OK to home with NSAIDs. If nuclear portion is + forreversible ischemia, suspect she should have an angiogram. Elton Carmichael MD [facility] TROPONIN-T STAT 10/16/2014 8:39 PM EDT EK EKG 12 LEAD STAT 10/16/2014 8:32 PM EDT XR CHEST AP PORTABLE FELI 10/16/2014 7:42 PM EDT D-DIMER STAT 10/16/2014 7:22 PM EDT DIFFERENTIAL STAT 10/16/2014 6:41 PM EDT TROPONIN-T STAT 10/16/2014 6:41 PM EDT BASIC METABOLIC PANEL STAT 10/16/2014 6:41 PM EDT CBC WITH DIFF STAT 10/16/2014 6:41 PM EDT EK EKG 12 LEAD STAT 10/16/2014 6:31 PM EDT IR INJECTION INTERLAMINAR EPIDUR LUMBAR SACRAL CAUDAL SINGLE DAY Routine 06/30/2014 9:44 AM EDT Lumbar radiculopathy IR INJECTION INTERLAMINAR EPIDUR LUMBAR SACRAL CAUDAL SINGLE DAY Routine 06/02/2014 9:27 AM EST Lumbar radiculopathy MRI LUMBAR SPINE WO CONTRAST Routine 04/03/2014 9:33 AM EST Lumbosacral radiculopathy at L3 Lumbosacral radiculopathy at L5 XR LUMBAR SPINE AP AND LATERAL Routine 03/06/2014 5:14 PM EST Low back pain XR CHEST PA AND LATERAL FELI 02/28/2014 4:55 PM EST XR NECK SOFT TISSUE FELI 02/28/2014 4:54 PM EST D-DIMER STAT 02/28/2014 4:35 PM EST THYROID STIMULATING HORMONE Routine 11/12/2013 11:11 AM EDT Hypothyroidism Asthma, moderate persistent, uncomplicated Weight gain T4, FREE (THYROXINE) Routine 11/12/2013 11:11 AM EDT Hypothyroidism Asthma, moderate persistent, uncomplicated Weight gain T3 FREE Routine 11/12/2013 11:11 AM EDT Hypothyroidism Asthma, moderate persistent, uncomplicated Weight gain XR NECK SOFT TISSUE FELI 11/08/2013 4:12 PM EDT SCANNED ANESTHESIA FORMS 02/05/2013 10:59 PM EDT EK EKG 12 LEAD STAT 02/04/2013 10:39 AM EDT SHOULDER ARTHROSCOPY ROTATOR CUFF REPAIR/ SUBACROMIAL DECOMPRESSION/ MACARIO 02/04/2013 7:47 AM EDT Primary localized osteoarthrosis, shoulder region Rotator cuff (capsule) sprain Special Needs CPT;[id number] EK EKG 12 LEAD Routine 02/04/2013 6:48 AM EDT DIFFERENTIAL Routine 02/04/2013 6:45 AM EDT CBC WITH DIFF Routine 02/04/2013 6:45 AM EDT XR SHOULDER RIGHT 4 VIEWS FELI 01/18/2013 3:42 PM EDT MRI SHOULDER RIGHT WO CONTRAST Routine 01/16/2013 12:21 PM EDT Right shoulder pain XR SHOULDER RIGHT 4 VIEWS Routine 01/08/2013 9:17 AM EDT Right shoulder pain XR FOOT RIGHT AP LATERAL AND OBLIQUE FELI 08/23/2012 12:14 PM EDT SCANNED PRE/POST PROCEDURES 06/20/2012 3:58 PM EST SCANNED ANESTHESIA FORMS 06/20/2012 3:57 PM EST PATHOLOGY TISSUE REPORT Routine 06/18/2012 1:10 PM EST LAPAROSCOPIC CHOLECYSTECTOMY POSSIBLE OPEN 06/18/2012 12:35 PM EST Calculus of gallbladder without mention of cholecystitis or obstruction Special Needs CPT 85260 RANDA DIFFERENTIAL Routine 06/18/2012 9:14 AM EST HCG SERUM QUALITATIVE Routine 06/18/2012 9:14 AM EST BASIC METABOLIC PANEL Routine 06/18/2012 9:14 AM EST CBC WITH DIFF Routine 06/18/2012 9:14 AM EST SCANNED LABS 03/14/2012 12:00 AM EST SCANNED RADIOLOGY REPORT 03/14/2012 12:00 AM EST SCANNED RADIOLOGY REPORT 02/06/2012 12:00 AM EDT SCANNED RADIOLOGY REPORT 01/25/2012 12:00 AM EDT THYROID STIMULATING HORMONE Routine 07/28/2011 10:33 AM EDT Hypothyroid T4, FREE (THYROXINE) Routine 07/28/2011 10:33 AM EDT Hypothyroid BASIC METABOLIC PANEL Routine 07/28/2011 10:33 AM EDT Hypothyroid WOUND CULTURE (STAIN INCLUDED) Routine 04/28/2011 4:34 PM EST MRSA infection XR CHEST PA AND LATERAL FELI 03/23/2011 6:00 PM EST EK EKG REG Routine 12/24/2008 6:58 AM EDT EK EKG REG Routine 12/23/2008 2:52 PM EDT XX CHEST PORTABLE Routine 12/23/2008 12:48 PM EDT GC EK EKG REG Routine 07/04/2008 3:15 PM EDT GC XX SHOULDER Routine 05/25/2007 7:13 PM EST EK EKG REG Routine 01/20/2006 10:46 AM EDT XX CHEST PA & LATERAL Routine 07/04/2005 12:45 AM EST XX SHOULDER Routine 03/05/2005 10:15 PM EST COCO DIAGNOSTIC BILATERAL Routine 10/29/2004 12:00 AM EDT Results * CT LOWER EXTREMITY RIGHT WO [...] EDT) Anatomical Region Laterality Modality Ankle Radiographic Flaco ging 11/06/2024 12:5 9 PM EDT Impressions [...] EDT) Anatomical Region Laterality Modality Knee Radiographic Flaco ging 11/06/2024 12:5 2 PM EDT Impressions [...] W AP PELVIS (11/06/2024 12:51 PM EDT) Only the most recent of2 resultswithin the time period is included. Anatomical Region Laterality Modality Hip Radiographic Flaco ging 11/06/2024 12:5 1 PM EDT Impressions [...] DIAGNOSTIC IMAGING O RDERABLES Final Result * MM MAMMO DIGITAL TRACIE SCREEN BILAT (10/30/2024 10:03 AM EDT) Only the most recent of2 resultswithin the time period is included. Anatomical Region Laterality Modality Breast Bilateral Mammography 10/30/2024 10:0 3 AM EDT Impressions 10/30/2024 10:39 AM EDT Negative ([id number]) RECOMMENDATION: Routine Screening Mammogram in 1 Year Bilateral . . COMMENTS: DISCLAIMER *The patient was notified by Valencellhart or mail of the results for this examination. *The patient's information was entered into a reminder system with a target due date for the next breast imaging, in accordance with the [employer] and the Society of [...] for screening mammogram for malignant neoplasm of [id number] COMPARISON STUDIES: Compared with prior studies the most recent being 09/16/2022 MM MAMMO DIGITAL TRACIE SCREEN BILAT at [facility] TISSUE DENSITY: There are scattered areas of fibroglandular density. FINDINGS: No mammographic evidence of malignancy. Procedure Note Kaleb Jimenez MD - 10/30/2024 EXAM: MM MAMMO DIGITAL TRACIE SCREEN BILAT EXAM DATE: 10/30/2024 10:03 AM INDICATION: Z12.31-Encounter for screening mammogram for malignantneoplasm of [id number] COMPARISON STUDIES: Compared with prior studies the most recent being 09/16/2022 MM MAMMO DIGITAL TRACIE SCREEN BILAT at [facility] TISSUE DENSITY: There are scattered areas of fibroglandular density. FINDINGS: No mammographic evidence of malignancy. IMPRESSION: Negative ([id number]) RECOMMENDATION: Routine Screening Mammogram in 1 Year Bilateral . . COMMENTS: DISCLAIMER *The patient was notified by MyChart or mail of the results for this examination. *The patient's information was entered into a reminder system with atarget due date for the next breast imaging, in accordance with the [employer] and the Society of Breast Imaging recommendations. *Breast Imaging has a false negative rate of 15%. *Any patient with a palpable abnormality, unexplained by breast imaging,should be managed on a clinical basis by the attending physician. Arminda Wilson COAL SAMPLE TESTER IMG MAMMOGRAPHY ORDERABLES Final Result * THYROID STIMULATING HORMONE (10/07/2024 9:00 AM EDT) Only the most recent of16 resultswithin the time period is included. Pathologist [facility] TSH 0.468 0.270 - 4.200 mcIU/mL 10/07/2024 12:04 PM EDT [facility] Blood VENOUS BLOOD / Unknown Venipuncture / Unknown 10/07/2024 9:00 AM EDT 10/07/2024 9:16 AM EDT Narrative [facility] - 10/07/2024 12:04 PM EDT Ingestion of rayshawn doses of biotin (>5 mg/day) taken within 8 hours of drawing blood sample can interfere with this immunoassay test. Judith Lomax MD CHEMISTRY ORDERABLES Fin al Result [facility] [address] [place] [address] , [place] [address] * SCANNED EKG (09/17/2024 9:34 AM EDT) Only the most recent of5 resultswithin the time period is included. Anatomical Region Laterality Modality Other 09/17/2024 9:34 AM EDT Unknown Provider IM ECG ORDERABLES Final Result * TROPONIN-T HIGH SENSITIVITY 2HR (09/16/2024 12:23 PM EDT) Only the most recent of2 resultswithin the time period is included. Pathologist [facility] he-sLyremfro-G 2HR <6 <14 ng/L 09/16/2024 12:44 PM EDT [facility] hs-cTnT 2Hr Delta from Baseline <-2 <4 ng/L 09/16/2024 12:44 PM EDT [facility] Blood VENOUS BLOOD / Unknown Venipuncture / Unknown 09/16/2024 12:23 PM EDT 09/16/2024 12:25 PM EDT Narrative [facility] - 09/16/2024 12:44 PM EDT Ingestion of rayshawn doses of biotin (>5 mg/day) taken within 8 hours of drawing blood sample can interfere with this immunoassay test. us Abdiel Barclay MD CHEMISTRY ORDERABLES Final Result [facility] [address] [place] [address] * CT ANGIOGRAM PULMONARY W CONTRAST (09/16/2024 11:41 AM EDT) Only the most recent of3 resultswithin the time period is included. Anatomical Region Laterality Modality Chest Computed Tomogra phy 09/16/2024 11:4 1 AM EDT Impressions 09/16/2024 12:10 PM EDT No acute pulmonary embolism or other acute finding. - Note: Radiology results need to be interpreted within a comprehensive clinical context. If you have questions about the radiology report, please contact the office of the ordering clinician. Narrative 09/16/2024 12:[address] PULMONARY ANGIOGRAM, 09/16/2024 11:41 AM CLINICAL HISTORY: -Chest pain, elevated D-dimer. COMPARISON: 09/01/2023. TECHNIQUE: PE protocol CT angiogram of the chest using Isovue 370 IV contrast as recorded in EPIC. 2-D multiplanar reconstructions and 3-D MIP reconstructions reviewed. Dose 1 : CT DLP Total : 795.33 mGycm DLP Spiral Max : 772.04 mGycm Maximum CTDI Vol : 22.16 mGy FINDINGS: Study is limited by patient body habitus an by patient motion artifact. Adequate visualization of the pulmonary arteries to the segmental/subsegmental level. No acute pulmonary embolism. No aortic arch aneurysm. No active failure, pneumonia, effusion, or pneumothorax. No suspicious pulmonary nodule or mediastinal mass lesion. Prior cholecystectomy. Procedure Note Emily Spencer MD - 09/16/2024 CT PULMONARY ANGIOGRAM, 09/16/2024 11:41 AM CLINICAL HISTORY: -Chest pain, elevated D-dimer. COMPARISON: 09/01/2023. TECHNIQUE: PE protocol CT angiogram of the chest using Isovue 370 IVcontrast as recorded in EPIC. 2-D multiplanar reconstructions and 3-D MIP reconstructions reviewed. Dose 1 : CT DLP Total : 795.33 mGycm DLP Spiral Max : 772.04 mGycm Maximum CTDI Vol : 22.16 mGy FINDINGS: Study is limited by patient body habitus an by patient motion artifact. Adequate visualization of the pulmonary arteries to the segmental/subsegmental level. No acute pulmonary embolism. No aortic arch aneurysm. No active failure, pneumonia, effusion, or pneumothorax. No suspicious pulmonary nodule or mediastinal mass lesion. Prior cholecystectomy. IMPRESSION: No acute pulmonary embolism or other acute finding. - Note: Radiology results need to be interpreted within a comprehensiveclinical context. If you have questions about the radiology report, please contactthe office of the ordering clinician. us Abdiel Barclay MD IMG CT ORDERABLES Final Res ult * XR CHEST PA AND LATERAL (09/16/2024 10:49 AM EDT) Only the most recent of8 resultswithin the time period is included. Anatomical Region Laterality Modality Chest Radiographic Flaco ging 09/16/2024 10:4 9 AM EDT Impressions 09/16/2024 10:50 AM EDT No acute finding. - Note: Radiology results need to be interpreted within a comprehensive clinical context. If you have questions about the radiology report, please contact the office of the ordering clinician. Narrative 09/16/2024 10:50 AM EDT PA AND LATERAL CHEST X-RAY, 09/16/2024 10:49 AM CLINICAL HISTORY: -cp COMPARISON: 03/14/2024 PROCEDURE COMMENTS: Frontal and lateral views of the chest. FINDINGS: Heart and mediastinal contours within normal limits for technique. No active failure, pneumonia, or visible effusion. No visible pneumothorax. Procedure Note Glendy Kim MD - 09/16/2024 PA AND LATERAL CHEST X-RAY, 09/16/2024 10:49 AM CLINICAL HISTORY: -cp COMPARISON: 03/14/2024 PROCEDURE COMMENTS: Frontal and lateral views of the chest. FINDINGS: Heart and mediastinal contours within normal limits for technique. Noactive failure, pneumonia, or visible effusion. No visible pneumothorax. IMPRESSION: No acute finding. - Note: Radiology results need to be interpreted within a comprehensiveclinical context. If you have questions about the radiology report, please contactthe office of the ordering clinician. Abdiel Barclay MD IMG DIAGNOSTIC IMAGING ORDE RABLES Final Result * TROPONIN-T HIGH SENSITIVITY BASELINE W/ REFLEX (09/16/2024 10:23 AM EDT) Only the most recent of2 resultswithin the time period is included. Pathologist [facility] sg-wMmjzglnh-K 8 <14 ng/L 09/16/2024 10:50 AM EDT [facility] Blood VENOUS BLOOD / Unknown Venipuncture / Unknown 09/16/2024 10:23 AM EDT 09/16/2024 10:33 AM EDT Narrative [facility] - 09/16/2024 10:50 AM EDT Ingestion of rayshawn doses of biotin (>5 mg/day) taken within 8 hours of drawing blood sample can interfere with this immunoassay test. Abdiel Barclay MD CHEMISTRY ORDERABLES Final Result [facility] [address] [place] [address] * (ABNORMAL) D-DIMER (09/16/2024 10:23 AM EDT) Only the most recent of4 resultswithin the time period is included. [facility] D-Dimer 677(H) <=500 ng/mL FEU 09/16/2024 10:59 AM [facility] Comment:This is an automated latex enhanced immunoassay for the quantitative determination of D-Dimer that may be used, in conjunction with a clinical pretest probability assessment, to exclude venous thromboembolism in patients suspected of deep venous thrombosis (DVT) and pulmonary embolism (PE). The cutoff for exclusion of DVT and PE is 500 ng/mL Fibrinogen Equivalent Units (FEU). Elevated D-Dimer levels may be associated with PE, DVT, disseminated intravascular coagulation, recent surgery, recent bleeding, , malignancy, and inflammation. Blood VENOUS BLOOD / Unknown Venipuncture / Unknown 09/16/2024 10:23 AM EDT 09/16/2024 10:33 AM EDT us Abdiel Barclay MD HEMATOLOGY ORDERABLES Final Result [facility] [address] [place] [address] * (ABNORMAL) CBC WITH DIFF (09/16/2024 10:23 AM EDT) Only the most recent of19 resultswithin the time period is included. WBC 6.8 3.7 - 10.3 x10(3)/mcL 09/16/2024 10:35 AM [facility] RBC 4.18 3.90 - 5.20 x10(6)/mcL 09/16/2024 10:35 AM EDT [facility] Hgb 10.9(L) 11.2 - 15.7 g/dL 09/16/2024 10:35 AM EDT [facility] Hct 34.5 34.0 - 45.0 % 09/16/2024 10:35 AM EDT [facility] MCV 82.5 80.0 - 100.0 fL 09/16/2024 10:35 AM EDT [facility] MCH 26.1 26.0 - 34.0 pg 09/16/2024 10:35 AM EDT [facility] MCHC 31.6 30.7 - 35.5 g/dL 09/16/2024 10:35 AM EDT [facility] RDW 15.1(H) <=14.9 % 09/16/2024 10:35 AM EDT [facility] Platelet 223 155 - 369 x10(3)/mcL 09/16/2024 10:35 AM EDT [facility] MPV 11.2 8.8 - 12.5 fL 09/16/2024 10:35 AM EDT [facility] Neut Percent 53.0 % 09/16/2024 10:35 AM EDT [facility] Comment:Neutrophils equals s egs plus bands Imm Gran% 0.4 % 09/16/2024 10:35 AM EDT [facility] Comment:Automated count of m etamyelocytes, myelocytes and promyelocytes. Lymph Percent 34.7 % 09/16/2024 10:35 AM EDT [facility] Converse Percent 7.0 % 09/16/2024 10:35 [facility] Eos Percent 4.8 % 09/16/2024 10:35 AM EDT [facility] Baso Percent 0.1 % 09/16/2024 10:35 AM EDT [facility] Neut # 3.6 1.6 - 6.1 x10(3)/[employer] 09/16/2024 10:35 AM T [facility] Comment:Neutrophils equals s egs plus bands IMMGRAN# 0.0 0.0 - 0.1 x10(3)/mcL 09/16/2024 10:35 AM [facility] Comment:Automated count of m etamyelocytes, myelocytes and promyelocytes. An absolute IG <0.1 is reported as 0.0. Lymph # 2.4 1.2 - 3.9 x10(3)/mcL 09/16/2024 10:35 AM EDT [facility] Converse # 0.5 0.3 - 0.9 x10(3)/[employer] 09/16/2024 10:35 AM [facility] Eos# 0.3 0.0 - 0.5 x10(3)/mcL 09/16/2024 10:35 AM EDT [facility] Baso # 0.0 0.0 - 0.1 x10(3)/mcL 09/16/2024 10:35 AM EDT [facility] Blood VENOUS BLOOD / Unknown Venipuncture / Unknown 09/16/2024 10:23 AM EDT 09/16/2024 10:33 AM EDT us Abdiel Barclay MD HEMATOLOGY ORDERABLES Final Result [facility] [address] [facility] [place] [address] * BASIC METABOLIC PANEL (09/16/2024 10:23 AM EDT) Only the most recent of16 resultswithin the time period is included. Sodium 143 136 - 145 mmol/L 09/16/2024 10:50 AM EDT [facility] Potassium 4.1 3.5 - 5.0 mmol/L 09/16/2024 10:50 AM EDT [facility] Chloride 106 98 - 107 mmol/L 09/16/2024 10:50 AM EDT [facility] Total CO2 25 22 - 29 mmol/L 09/16/2024 10:50 AM EDT [facility] Anion Gap 12 7 - 16 mmol/L 09/16/2024 10:50 AM EDT [facility] Calcium 8.6 8.6 - 10.4 mg/dL 09/16/2024 10:50 AM EDT [facility] Glucose Lvl 91 70 - 99 mg/dL 09/16/2024 10:50 AM EDT [facility] BUN 19 6 - 20 mg/dL 09/16/2024 10:50 AM EDT [facility] Creatinine 1.00 0.51 - 1.30 mg/dL 09/16/2024 10:50 AM EDT [facility] eGFR (CKD-EPIcr 2020) 70 >=60 mL/min/1.7 3 m2 09/16/2024 10:50 AM EDT [facility] Comment:Estimated GFR was ca lculated using the CKD-EPIcr (2020) equation refit without race. The equation is recommended by the [employer] - [place] [employer] Task Force. Blood VENOUS BLOOD / Unknown Venipuncture / Unknown 09/16/2024 10:23 AM EDT 09/16/2024 10:33 AM EDT us Abdiel Barclay MD CHEMISTRY ORDERABLES Final Result [facility] [address] [place] [address] * EK EKG 12 LEAD (09/16/2024 9:26 AM EDT) Only the most recent of11 resultswithin the time period is included. 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1975 Requested By: [facility] Order Number: [id number] Reading MD: Juan J Spence MD Measurements Intervals [place] Rate: 74 P: 50 MO: 143 QRS: 28 QRSD: 108 T: 19 QT: 395 QTc: 441 Interpretive Statements SINUS RHYTHM Electronically Signed On 09-16-2024 18:55:14 EDT by Juan J Spence MD Narrative Procedure Note Juan J Spence MD - 09/16/2024 IMPRESSION [facility] Test Date: 2024-09-16 Pat Name: GISELAFORMERLY [facility] Department: DEPID Room: Gender: Female 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1975 Requested By: [facility] Order Number: [id number] Reading MD: Juan J Spence MD Measurements Intervals [place] Rate: 74 P: 50 MO: 143 QRS: 28 QRSD: 108 T: 19 QT: 395 QTc: 441 Interpretive Statements SINUS RHYTHM Electronically Signed On 09-16-2024 18:55:14 EDT by Juan J Spence MD us Abdiel Barclay MD IMG ECG ORDERABLES Final Re sult * Cast Evaluation (09/03/2024 2:30 PM EDT) Narrative [facility] - 09/03/2024 2:30 PM EDT Reji Oleary MA 09/03/2024 3:20 PM Cast Evaluation Date/Time: 09/03/2024 2:30 PM Performed by: Reji Oleary MA Authorized by: Leonides Stroud DPM Consent given by: patient Site marked: site marked Timeout: Immediately prior to procedure a time out was called to verify the correct patient, procedure, equipment, direct support professional and site/side marked as required Injury Location details: left ankle Pre-procedure assessment neurovascularly intact Procedure Manipulation performed? no manipulation performed Immobilization: cast Cast type: short leg walking Supplies used: Ortho-Glass and cotton padding Post-procedure assessment neurovascularly intact Patient tolerance: patient tolerated the procedure well with no immediate complications Comments Patient came in today for a cast evaluation complaining that her cast has become loose. On evaluation I noticed that her cast was loose and she was able to move both her ankle and foot. I removed the cast and placed the patient into a new short leg walking cast. After removal of the cast the patient stated that her swelling has gone down significantly and this could be the cause for her cast being loose. Patient was placed in a short leg walking cast, past met heads. 4 3 inch cotton web rolls, 1 4 inch stock, 4 3-inch fiberglass purple fiberglass was used to apply the cast. 3 fan folds were applied at the foot and heel for added support. Bumpers were applied to the toes and the below the tibial tuberosity. The cast was checked at the heel, calf, and toes for stability. Cast was firm upon palpation, no soft spots noted. Patient was taken off the stand to allow the cast to dry properly. Patient tolerated well. Patient was asked if they have any issues or concerns with the cast. Patient expressed cast was well fitting, had normal gait, and had no issues or concerns at this time. Patient had minimal swelling on the lateral malleolus. A cast shoe was given. Patient was educated on cast care/cast evaluations and provided with a Cast Care Paper. Patient/family expressed understanding and agreed. Leonides Stroud DPM PROCEDURE/MINOR SURGICAL ORDERABLES Final Result Performing Organization Address [facility] de Phone Number [facility] * Cast application (09/03/2024 10:30 AM EDT) Narrative [facility] - 09/03/2024 10:30 AM EDT Zeus Ward Athletic Trainer 09/03/2024 8:21 PM Cast application Date/Time: 09/03/2024 10:30 AM Performed by: Zeus Ward Athletic Trainer Authorized by: Leonides Stroud DPM Consent given by: patient Site marked: site marked Timeout: Immediately prior to procedure a time out was called to verify the correct patient, procedure, equipment, direct support professional and site/side marked as required Injury Location details: left foot Pre-procedure assessment neurovascularly intact Range of motion: normal Procedure Manipulation performed? no manipulation performed Immobilization: cast Cast type: short leg walking Supplies used: Ortho-Glass and cotton padding (1 4in stocknette 1 4in webroll 1 6in webroll 5.5 3in purple fiberglass) Post-procedure assessment neurovascularly intact Range of motion: unchanged Patient tolerance: patient tolerated the procedure well with no immediate complications Comments The patient was placed today in a SLWC today. I did push extra on the top of the cast at the calf to ensure it was tight when she started walking. After the cast was finished, the patient walked around and felt comfortable in the cast. She understands how to care for it. She understands there are cast eval times if there are issues with the cast. Leonides Stroud DPM PROCEDURE/MINOR SURGICAL ORDERABLES Final Result Performing Organization Address [facility] de Phone Number [facility] * XR FOOT LEFT AP LATERAL AND OBLIQUE (09/03/2024 10:26 AM EDT) Only the most recent of2 resultswithin the time period is included. Narrative Osvaldo Ren - 09/03/2024 10:26 AM EDT Please see physician's note from office encounter for x-ray imaging result Leonides J Stroud DPM IMG DIAGNOSTIC IMAGING OR DERABLES Final Result * XR ANKLE LEFT AP LATERAL AND OBLIQUE (09/03/2024 10:26 AM EDT) Narrative GenericuserOsvaldo - 09/03/2024 10:26 AM EDT Please see physician's note from office encounter for x-ray imaging result Leonides Stroud DPDelfina IMG DIAGNOSTIC IMAGING OR DERABLES Final Result * SEP ELLIS FLU+SARS ANTIGEN (06/07/2024 11:33 AM EST) Only the most recent of2 resultswithin the time period is included. Influenza A Antigen Negative Negative 06/07/2024 11:50 AM EST [facility] Influenza B Antigen Negative Negative 06/07/2024 11:50 AM EST [facility] SARS Antigen Negative Negative 06/07/2024 11:50 AM EST [facility] Swab SPECIMEN FROM NASOPHARYNGEAL STRUCTURE / Unknown 06/07/2024 11:33 AM EST 06/07/2024 11:50 AM EST Arminda Wilson COAL SAMPLE TESTER POINT OF CARE TEST ORDERABL ES Final Result [facility] [address] [place] [address] * URINALYSIS (05/15/2024 11:41 AM EST) Only the most recent of4 resultswithin the time period is included. UA Color Colorless 05/16/2024 9:07 PM EST [facility] UA Appear Clear Clear 05/16/2024 9:07 PM EST [facility] UA Glucose Negative Negative mg/dL 05/16/2024 9:07 PM EST [facility] UA Ketones Negative Negative mg/dL 05/16/2024 9:07 PM EST [facility] UA Blood Negative Negative 05/16/2024 9:07 PM EST [facility] UA pH 6.5 5.0 - 8.0 pH 05/16/2024 9:07 PM EST [facility] UA Protein Negative Negative mg/dL 05/16/2024 9:07 PM EST [facility] UA Urobilinogen Normal <=1 mg/dL 9:07 PM EST [facility] UA Bili Negative Negative 05/16/2024 9:07 PM EST [facility] UA Nitrite Negative Negative 05/16/2024 9:07 PM EST [facility] UA Leuk Est Negative Negative 05/16/2024 9:07 PM EST [facility] UA Spec Grav 1.012 1.001 - 1.035 no units 05/16/2024 9:07 PM EST [facility] Comment:Reference range dylan d for random specimens only. Urine URINE SPECIMEN OBTAINED VIA STRAIGHT CATHETER / Unknown 05/15/2024 11:41 AM EST 05/15/2024 11:41 AM EST Nicolette Phillips PA-C URINE ORDERABLES Yessenia l Result Performing Organization Address [facility] Co de Phone Number [address] , [place] [address] * URINE CULTURE (NO STAIN) (05/15/2024 11:41 AM EST) Only the most recent of4 resultswithin the time period is included. [facility] Culture No growth at 30 hours. 05/18/2024 4:49 AM EST [facility] Urine URINE SPECIMEN OBTAINED VIA STRAIGHT CATHETER / Unknown 05/15/2024 11:41 AM EST 05/15/2024 11:41 AM EST Nicolette Phillips PA-C MICROBIOLOGY - GENERA L ORDERABLES Final Result Performing Organization Address [facility] Co de Phone Number [address] , [place] [address] * (ABNORMAL) SEP URINALYSIS POC (05/14/2024 2:26 PM EST) Only the most recent of3 resultswithin the time period is included. UA Color POC Yellow Color 05/14/2024 2:28 PM EST [facility] UA Appear POC Clear Clear 05/14/2024 2:28 PM EST [facility] UA Gluc POC Negative Negative mg/dL 05/14/2024 2:28 PM EST [facility] UA Bili POC Negative Negative 05/14/2024 2:28 PM EST [facility] UA Ketones POC Negative Negative mg/dL 05/14/2024 2:28 PM EST [facility] UA SG POC 1.020 1.001 - 1.035 no units 05/14/2024 2:28 PM EST [facility] UA Blood POC Moderate(A) Negative 05/14/2024 2:28 PM EST [facility] UA pH POC 6.5 5.0 - 8.0 pH 05/14/2024 2:28 PM EST [facility] UA Protein POC Negative Negative mg/dL 05/14/2024 2:28 PM EST [facility] UA Urobilinogen POC 0.2 0.2, 1.0 05/14/2024 2:28 PM EST [facility] UA Nitrite POC Negative Negative 05/14/2024 2:28 PM EST [facility] UA Leuk Est POC Small(A) Negative 2:28 PM EST [facility] Urine URINE SPECIMEN COLLECTION / Unknown 05/14/2024 2:26 PM EST 05/14/2024 2:28 PM EST us Abdulkadir Montoya MD POINT OF CARE TEST ORDERABLES Final Result [facility] [address] [place] [address] * CT ABDOMEN W CONTRAST (05/02/2024 2:39 PM EST) Anatomical Region Laterality Modality Abdomen, Pelvis Computed Tomogra phy 05/02/2024 2:39 PM EST Impressions 05/02/2024 2:[address] abdomen with contrast. No acute abnormality. - Note: Radiology results need to be interpreted within a comprehensive clinical context. If you have questions about the radiology report, please contact the office of the ordering clinician. Narrative 05/02/2024 2:[address] ABDOMEN W CONTRAST, 05/02/2024 2:39 PM CLINICAL HISTORY: R10.12-Left upper quadrant [id number]. COMPARISON: 07/27/2015 PROCEDURE COMMENTS: Multidetector CT of the region of interest, per protocol. Both oral and intravenous contrast administered. Dose 1 : CT DLP Total : 1167 mGycm DLP Spiral Max : 1162.69 mGycm Maximum CTDI Vol : 28.73 mGy FINDINGS: LOWER THORAX: Lung bases are unremarkable. ABDOMEN: Liver, spleen and pancreas normal. Gallbladder surgically absent. Adrenals and kidneys normal. Kidneys enhance symmetrically. Aorta normal in course and caliber. No aneurysm or dissection. Mesenteric vessels widely patent. Visualized gastrointestinal structures unremarkable. No adenopathy or ascites. No suspicious bony lesions. Procedure Note Jim Lazo MD - 05/02/2024 CT ABDOMEN W CONTRAST, 05/02/2024 2:39 PM CLINICAL HISTORY: R10.12-Left upper quadrant [id number]. COMPARISON: 07/27/2015 PROCEDURE COMMENTS: Multidetector CT of the region of interest, perprotocol. Both oral and intravenous contrast administered. Dose 1 : CT DLP Total : 1167 mGycm DLP Spiral Max : 1162.69 mGycm Maximum CTDI Vol : 28.73 mGy FINDINGS: LOWER THORAX: Lung bases are unremarkable. ABDOMEN: Liver, spleen and pancreas normal. Gallbladder surgicallyabsent. Adrenals and kidneys normal. Kidneys enhance symmetrically. Aorta normalin course and caliber. No aneurysm or dissection. Mesenteric vessels widelypatent. Visualized gastrointestinal structures unremarkable. No adenopathy orascites. No suspicious bony lesions. IMPRESSION: Unremarkable CT abdomen with contrast. No acute abnormality. - Note: Radiology results need to be interpreted within a comprehensiveclinical context. If you have questions about the radiology report, please contactthe office of the ordering clinician. Arminda Wilson APRN IM CT ORDERABLES Final Res ult * LIPASE LEVEL (04/26/2024 2:02 PM EST) Lipase Lvl 36 13 - 60 U/L 04/26/2024 8:05 PM EST [facility] Blood VENOUS BLOOD / Unknown Venipuncture / Unknown 04/26/2024 2:02 PM EST 04/26/2024 2:02 PM EST [facility][1] CHEMISTRY ORDERABLES Final Result Performing Organization Address [facility] de Phone Number [facility] [address] [place] [address] , [place] [address] * (ABNORMAL) HEMOGLOBIN A1C (04/26/2024 2:02 PM EST) Only the most recent of4 resultswithin the time period is included. Hgb A1C 6.2(H) 4.2 - 5.6 % 04/26/2024 7:34 PM EST [facility] Est. Avg Glucose 131 mg/dL 04/26/2024 7:34 PM EST [facility] Blood VENOUS BLOOD / Unknown Venipuncture / Unknown 04/26/2024 2:02 PM EST 04/26/2024 2:02 PM EST Narrative [facility] - 04/26/2024 7:34 PM EST REFERENCE RANGE: Normal: 4.0-5.6% Pre-diabetes: 5.7-6.4% Provisional diagnosis of diabetes: >6.4% Hgb F>10% and anything which shortens red cell survival, such as hemolytic anemia, or unstable hemoglobin variants such as HbSS, HbSC, or HbCC, will lower the HbA1c value associated with a given level of glycemic control. Arminda Wilson [facility] CHEMISTRY ORDERABLES Final Result Performing Organization Address [facility] Co de Phone Number [facility] [employer] [address] , [place] [address] [facility] [address] [place] [id number] * AMYLASE LEVEL (04/26/2024 2:02 PM EST) Pathologist [facility] Amylase Lvl 62 28 - 100 U/L 04/26/2024 8:05 PM EST [facility] Blood VENOUS BLOOD / Unknown Venipuncture / Unknown 04/26/2024 2:02 PM EST 04/26/2024 2:02 PM EST Arminda Burnsulding [employer] S[employer] CHEMISTRY ORDERABLES Final Result [facility] [address] , [place] [address] * (ABNORMAL) COMPREHENSIVE METABOLIC PANEL (04/26/2024 2:02 PM EST) Only the most recent of7 resultswithin the time period is included. Sodium 143 136 - 145 mmol/L 04/26/2024 7:45 PM EST [facility] Potassium 4.6 3.5 - 5.0 mmol/L 04/26/2024 7:45 PM EST [facility] Chloride 103 98 - 107 mmol/L 04/26/2024 7:45 PM EST [facility] Total CO2 28 22 - 29 mmol/L 04/26/2024 7:45 PM EST [facility] Anion Gap 12 7 - 16 mmol/L 04/26/2024 7:45 PM EST [facility] Calcium 9.6 8.6 - 10.4 mg/dL 04/26/2024 7:45 PM EST [facility] Glucose Lvl 105(H) 70 - 99 mg/dL 04/26/2024 7:45 PM EST [facility] BUN 14 6 - 20 mg/dL 04/26/2024 7:45 PM EST [facility] Creatinine 0.99 0.51 - 1.30 mg/dL 04/26/2024 7:45 PM EST [facility] Albumin 4.2 3.5 - 5.2 gm/dL 04/26/2024 7:45 PM EST [facility] Total Protein 7.3 6.4 - 8.3 gm/dL 04/26/2024 7:45 PM EST [facility] Bili Total 0.3 0.2 - 1.3 mg/dL 04/26/2024 7:45 PM EST [facility] ALT 21 <=41 U/L 04/26/2024 7:45 PM EST [facility] AST 23 <=40 U/L 04/26/2024 7:45 PM EST [facility] Alk Phos 151(H) 36 - 123 U/L 04/26/2024 7:45 PM EST [facility] eGFR (CKD-EPIcr 2020) 71 >=60 mL/min/1.7 3 m2 04/26/2024 7:45 PM EST [facility] Comment:Estimated GFR was ca lculated using the CKD-EPIcr (2020) equation refit without race. The equation is recommended by the National Kidney Foundation - [place] [employer] Neph[employer] Task Force. Blood VENOUS BLOOD / Unknown Venipuncture / Unknown 04/26/2024 2:02 PM EST 04/26/2024 2:02 PM EST Arminda Wilson COAL SAMPLE TESTER CHEMISTRY ORDERABLES Final Result [facility] [address] [facility], [place] [address] [facility] [address] [place] [address] * SCANNED RHYTHM STRIPS (04/05/2024 10:58 AM EST) Only the most recent of9 resultswithin the time period is included. Anatomical Region Laterality Modality Other 04/05/2024 10:5 8 AM EST Unknown Provider IMG ECG ORDERABLES Final Result * INTRAOP AIRWAY PLACEMENT (04/04/2024 12:30 PM EST) Narrative [facility] - 04/04/2024 12:30 PM EST Saud Sierra CRNA 04/04/2024 12:31 PM Intraop Airway Placement: Date/Time: 04/04/2024 12:30 PM Induction type: IV Mask size: Standard adult Pre-Oxygenation: Standard Mask ventilation: Not attempted Mask ventilation improved by: Head adjustment Technique: Video laryngoscope Laryngoscope blade: Bradford Blade size: 3 Grade view: II Airway type: ETT- cuffed Topical Anesthetic/Lubricant: Lubricant jelly Intubation assist devices: Stylet 14fr Airway location: Oral Device size: 7.5mm Secured at: 22 cm Secured by: Tape Measured from: Lips Placement verified: Auscultation, End tidal CO2 and Symmetric chest wall motion Condition: Atraumatic Insertion attempts: 1 us Wanda Miranda MD [place] ANESTHESIA Final R esult Performing Organization Address [facility] Co de Phone Number [facility] [address] [place] [address] * [id number] A/B (03/14/2024 2:35 PM EST) Only the most recent of2 resultswithin the time period is included. CORONAVIRUS [id number] Not Detected Not Detected 03/14/2024 3:05 PM EST [facility] Influenza A DNA Not Detected Not Detected 03/14/2024 3:05 PM EST [facility] Influenza B DNA Not Detected Not Detected 03/14/2024 3:05 PM EST [facility] Swab BOTH ANTERIOR NARES / Unknown 03/14/2024 2:35 PM EST 03/14/2024 2:44 PM EST Narrative [facility] - 03/14/2024 3:05 PM EST This test is a real-time RT-PCR test that simultaneously detects and differentiates nucleic acids from SARS-CoV-2, influenza A and influenza B in individuals suspected of a respiratory viral infection. Not Detected results do not preclude COVID-19 or influenza virus infection or other respiratory viruses and should not be used as the sole basis for treatment or other patient management decisions. Test is performed on the [employer] platform. us Ce Philippe DO MICROBIOLOGY - GENERAL ORDERAB LES Final Result Performing Organization Address [facility] Co de Phone Number [facility] [address] [place] [address] * (ABNORMAL) CBC (03/13/2024 1:44 PM EST) Only the most recent of4 resultswithin the time period is included. WBC 6.8 3.7 - 10.3 x10(3)/mcL 03/13/2024 7:52 PM EST [facility] RBC 4.61 3.90 - 5.20 x10(6)/mcL 03/13/2024 7:52 PM EST [facility] Hgb 11.9 11.2 - 15.7 g/dL 03/13/2024 7:52 PM EST [facility] Hct 38.7 34.0 - 45.0 % 03/13/2024 7:52 PM EST [facility] MCV 83.9 80.0 - 100.0 fL 03/13/2024 7:52 PM EST [facility] MCH 25.8(L) 26.0 - 34.0 pg 03/13/2024 7:52 PM EST [facility] MCHC 30.7 30.7 - 35.5 g/dL 03/13/2024 7:52 PM EST [facility] RDW 14.9 <=14.9 % 03/13/2024 7:52 PM EST [facility] Platelet 256 155 - 369 x10(3)/mcL 03/13/2024 7:52 PM EST [facility] MPV 11.8 8.8 - 12.5 fL 03/13/2024 7:52 PM EST [facility] Blood VENOUS BLOOD / Unknown Venipuncture / Unknown 03/13/2024 1:44 PM EST 03/13/2024 1:44 PM EST Arminda Wilson APRN HEMATOLOGY ORDERABLES Final Result [facility] [address] [facility] , [address] [place] [id number] * POCT EKG (03/13/2024 1:17 PM EST) 03/13/2024 1:17 PM EST Impressions SEP OFFICE - 03/13/2024 1:17 PM EST NSR, no ectopy Arminda Wilson APRN POINT OF CARE CARDIOLOGY Ed ited Result - Final SEP OFFICE * (ABNORMAL) YNES SCREEN BY IFA (12/12/2023 11:00 AM EDT) [facility] YNES Titer 1:320(A) <1:80 12/15/2023 1:08 PM EDT [facility] [employer] [facility] Comment:A titer of 1:80 is t he reference interval for detection in the indirect immunofluorescence assay, representing the titer with optimized sensitivity/specificity in healthy and affected populations. Note that titers < 1:80 do not necessarily rule out systemic autoimmune rheumatic diseases. YNES Pattern Homogeneous 12/15/2023 1:08 PM EDT [facility] [employer] [facility] Blood VENOUS BLOOD / Unknown Venipuncture / Unknown 12/12/2023 11:00 AM EDT 12/12/2023 11:00 AM EDT Abdulkadir Montoya MD IMMUNOLOGY ORDERABLES Final Re sult Performing Organization Address [facility] Co de Phone Number [facility] [employer] , [place] [phone] * CYCLIC CITRULLINATED PEPTIDE ANTIBODY, IGG (12/12/2023 11:00 AM EDT) Only the most recent of2 resultswithin the time period is included. [facility] CCP Ab, IgG 1.1 <5.0 U/mL 12/12/2023 7:47 PM EDT [facility] [employer] [facility] Comment: Negative: < 5.0 U/mL Positive: > or = 5.0 U/mL Blood VENOUS BLOOD / Unknown Venipuncture / Unknown 12/12/2023 11:00 AM EDT 12/12/2023 11:00 AM EDT Abdulkadir Montoya MD IMMUNOLOGY ORDERABLES Final Re sult Performing Organization Address [facility] Co de Phone Number [facility] [employer] , [place] [address] * SEDIMENTATION RATE AUTOMATED (12/12/2023 11:00 AM EDT) Only the most recent of2 resultswithin the time period is included. [facility] Sed Rate 18 0 - 20 mm/hr 12/12/2023 3:56 PM EDT [facility] Blood VENOUS BLOOD / Unknown Venipuncture / Unknown 12/12/2023 11:00 AM EDT 12/12/2023 11:00 AM EDT us Abdulkadir Montoya MD HEMATOLOGY ORDERABLES Final Re sult Performing Organization Address [facility] de Phone Number [facility] [address] [facility] , [place] [phone] * RHEUMATOID FACTOR QUANTITATIVE (12/12/2023 11:00 AM EDT) Pathologist [facility] RF Quant <10 <14 IU/mL 12/12/2023 5:2 9 PM EDT [facility] Blood VENOUS BLOOD / Unknown Venipuncture / Unknown 12/12/2023 11:00 AM EDT 12/12/2023 11:00 AM EDT us Abdulkadir Montoya MD IMMUNOLOGY ORDERABLES Final Re sult Performing Organization Address [facility] Phone Number [facility] [address] [facility] , [place] [address] * (ABNORMAL) C-REACTIVE PROTEIN (12/12/2023 11:00 AM EDT) Only the most recent of2 resultswithin the time period is included. Pathologist [facility] CRP 16.16(H) <=5.00 mg/L 12/12/2023 5:54 PM EDT [facility] Blood VENOUS BLOOD / Unknown Venipuncture / Unknown 12/12/2023 11:00 AM EDT 12/12/2023 11:00 AM EDT us Abdulkadir Montoya MD CHEMISTRY ORDERABLES Final Res ult Performing Organization Address [facility] de Phone Number [facility] [address] [facility] , [place] [address] * (ABNORMAL) ANTINUCLEAR ANTIBODY SCREEN (12/12/2023 11:00 AM EDT) Only the most recent of2 resultswithin the time period is included. YNES, IgG Positive (A) Negative 12/15/2023 1:08 PM EDT [facility] Comment:YNES samples are scre ened using automated enzyme immunoassay. All samples that screen positive are then tested by the indirect immunofluorescence method. Blood VENOUS BLOOD / Unknown Venipuncture / Unknown 12/12/2023 11:00 AM EDT 12/12/2023 11:00 AM EDT Abdulkadir Montoya MD IMMUNOLOGY ORDERABLES Final Re sult Performing Organization Address [facility] Co de Phone Number [facility] [address] [place] [address], [address] [place] [phone] * (ABNORMAL) POCT ELLIS SARS ANTIGEN (11/03/2023 11:14 AM EDT) Only the most recent of5 resultswithin the time period is included. SARS Antigen Positive(A ) Negative SEP OFFICE Lot Number SEP OFFICE Expiration Date SEP OFFICE SeriAl # SEP OFFICE Control Line Yes YES/NO SEP OFFICE 11/03/2023 11:1 4 AM EDT Arminda Wilson [employer] TE[employer] POINT OF CARE TEST ORDERABL ES Final Result Performing Organization Address [facility] de Phone Number SEP OFFICE * POCT ELLIS INFLUENZA A/B (11/03/2023 10:01 AM EDT) Influenza A Antigen Negative Negative 11/03/2023 11:14 AM EDT [facility] Influenza B Antigen Negative Negative 11/03/2023 11:14 AM EDT [facility] Swab SPECIMEN FROM NASOPHARYNGEAL STRUCTURE / Unknown 11/03/2023 10:01 AM EDT 11/03/2023 11:14 AM EDT us Arminda Sidman COAL SAMPLE TESTER POINT OF CARE TEST ORDERABL ES Final Result Performing Organization Address [facility] Co de Phone Number [facility] [address], [place] [address] * COLOGUARD (09/12/2023 10:45 PM EDT) COLOGUARD CLINICAL REPORT Negative Negative [facility] Comment: NEGATIVE TEST RESULT. A negative Cologuard result indicates a low likelihood that a colorectal cancer (CRC) or advanced adenoma (adenomatous polyps with more advanced pre-malignant features) is present. The chance that a person with a negative Cologuard test has a colorectal cancer is less than 1 in 1500 (negative predictive value >99.9%) or has an advanced adenoma is less than 5.3% (negative predictive value 94.7%). These data are based on a prospective cross-sectional study of 10,000 individuals at average risk for colorectal cancer who were screened with both Cologuard and colonoscopy. (Suleiman Helton et al, N Engl J Med 2014;370(14):4260-1828) The normal value (reference range) for this assay is negative. COLOGUARD RE-SCREENING RECOMMENDATION: Periodic colorectal cancer screening is an important part of preventive healthcare for asymptomatic individuals at average risk for colorectal cancer. Following a negative Cologuard result, the [place] [employer] Society and U.S. Multi-Society Task Force screening guidelines recommend a Cologuard re-screening interval of 3 years. References: [place] [employer] Guideline for Colorectal Cancer Screening: https://www.cancer.org/cancer/fcyvr-whvtrr-pcgood/yjyeokcbg-hyjgntjgn-xjawmoz/ac s-rec ommendations.html.; Julius SOOD, Sunil TIWARI, Floridalma VogelK, Colorectal Cancer Screening: Recommendations for Physicians and Patients from the U.S. Multi-Society Task Force on Colorectal Cancer Screening , Am J Gastroenterology 2017; 112:7848-9969. TEST DESCRIPTION: Composite algorithmic analysis of stool DNA-biomarkers with hemoglobin immunoassay. Quantitative values of individual biomarkers are not reportable and are not associated with individual biomarker result reference ranges. Cologuard is intended for colorectal cancer screening of adults of either sex, 45 years or older, who are at average-risk for colorectal cancer (CRC). Cologuard has been approved for use by the U.S. FDA. The performance of Cologuard was established in a cross sectional study of average-risk adults aged 50-84. Cologuard performance in patients ages 45 to 49 years was estimated by sub-group analysis of near-age groups. Colonoscopies performed for a positive result may find as the most clinically significant lesion: colorectal cancer [4.0%], advanced adenoma (including sessile serrated polyps greater than or equal to 1cm diameter) [20%] or non- advanced adenoma [31%]; or no colorectal neoplasia [45%]. These estimates are derived from a prospective cross-sectional screening study of 10,000 individuals at average risk for colorectal cancer who were screened with both Cologuard and colonoscopy. (Suleiman Ayoub. et al, N Engl J Med 2014;370(14):5502-6539.) Cologuard may produce a false negative or false positive result (no colorectal cancer or precancerous polyp present at colonoscopy follow up). A negative Cologuard test result does not guarantee the absence of CRC or advanced adenoma (pre-cancer). The current Cologuard screening interval is every 3 years. ([place] [employer] and U.S. Multi-Society Task Force). Cologuard performance data in a 10,000 patient pivotal study using colonoscopy as the reference method can be accessed at the following location: www.[employer]Pass/results. Additional description of the Cologuard test process, warnings and precautions can be found at www.cologuard.com. Stool 09/12/2023 10:4 5 PM EDT 09/14/2023 1:35 PM EDT us Crista Briseno DO [employer] - ORDERABLES F inal Result [employer], [facility] [address] [place] [address], [facility] [address] [place] [address] * CT CHEST W CONTRAST (09/01/2023 3:40 PM EDT) Anatomical Region Laterality Modality Chest Computed Tomogra phy 09/01/2023 3:40 PM EDT Impressions 09/01/2023 3:58 PM EDT No significant abnormality in the chest. - Note: Radiology results need to be interpreted within a comprehensive clinical context. If you have questions about the radiology report, please contact the office of the ordering clinician. Narrative 09/01/2023 3:[address] CHEST WITH CONTRAST, 09/01/2023 3:40 PM CLINICAL HISTORY: -dyspnea. COMPARISON: May 02, 2023 PROCEDURE COMMENTS: Multi detector CT scanning of the chest. Multiplanar reconstructions per protocol. Isovue 370 IV contrast given as recorded in EPIC. Dose 1 : CT DLP Total : 1021.83 mGycm DLP Spiral Max : 1018.01 mGycm Maximum CTDI Vol : 28 mGy FINDINGS: No dominant mediastinal adenopathy. No pericardial effusion. No pleural effusion. No pneumothorax. No infiltrate or suspicious pulmonary nodule. Granuloma in the right lower lobe. No endobronchial lesion. Fatty liver. Coronary artery calcification: Mild. Procedure Note Kelsy Cochran MD - 09/01/2023 CT CHEST WITH CONTRAST, 09/01/2023 3:40 PM CLINICAL HISTORY: -dyspnea. COMPARISON: May 02, 2023 PROCEDURE COMMENTS: Multi detector CT scanning of the chest. Multiplanar reconstructions per protocol. Isovue 370 IV contrast given as recorded inEPIC. Dose 1 : CT DLP Total : 1021.83 mGycm DLP Spiral Max : 1018.01 mGycm Maximum CTDI Vol : 28 mGy FINDINGS: No dominant mediastinal adenopathy. No pericardial effusion.No pleural effusion. No pneumothorax. No infiltrate or suspicious pulmonary nodule. Granuloma in the right lowerlobe. No endobronchial lesion. Fatty liver. Coronary artery calcification: Mild. IMPRESSION: No significant abnormality in the chest. - Note: Radiology results need to be interpreted within a comprehensiveclinical context. If you have questions about the radiology report, please contactthe office of the ordering clinician. Daniel García MD IMG CT ORDERABLES Final Result * XR CHEST AP PORTABLE (09/01/2023 12:05 PM EDT) Only the most recent of5 resultswithin the time period is included. Anatomical Region Laterality Modality Chest Radiographic Flaco ging 09/01/2023 12:0 5 PM EDT Impressions 09/01/2023 12:07 PM EDT No acute finding. - Note: Radiology results need to be interpreted within a comprehensive clinical context. If you have questions about the radiology report, please contact the office of the ordering clinician. Narrative 09/01/2023 12:07 PM EDT XR CHEST AP PORTABLE, 09/01/2023 12:05 PM CLINICAL HISTORY: -dyspnea COMPARISON: 04/03/23. PROCEDURE COMMENTS: AP portable technique. FINDINGS: Support devices: No visible support devices. Heart and mediastinal contours within normal limits for technique. No active failure, pneumonia, or visible effusion. No visible pneumothorax. Procedure Note Telma Amaya MD - 09/01/2023 XR CHEST AP PORTABLE, 09/01/2023 12:05 PM CLINICAL HISTORY: -dyspnea COMPARISON: 04/03/23. PROCEDURE COMMENTS: AP portable technique. FINDINGS: Support devices: No visible support devices. Heart and mediastinal contours within normal limits for technique. Noactive failure, pneumonia, or visible effusion. No visible pneumothorax. IMPRESSION: No acute finding. - Note: Radiology results need to be interpreted within a comprehensiveclinical context. If you have questions about the radiology report, please contactthe office of the ordering clinician. Daniel García MD IMG DIAGNOSTIC IMAGING ORDERABLE S Final Result * CT CHEST WO CONTRAST (05/02/2023 5:45 PM EST) Anatomical Region Laterality Modality Chest Computed Tomogra phy 05/02/2023 5:45 PM EST Impressions 05/02/2023 7:38 PM EST Resolved pulmonary opacities which were likely infectious in nature. - Note: Radiology results need to be interpreted within a comprehensive clinical context. If you have questions about the radiology report, please contact the office of the ordering clinician. Narrative 05/02/2023 7:[address] CHEST WITHOUT CONTRAST, 05/02/2023 5:45 PM CLINICAL HISTORY: R05.3-Chronic [id number]. COMPARISON: CT 04/03/2023 PROCEDURE COMMENTS: Multi-detector CT of the chest with multiplanar reconstructions per protocol. No contrast given. CT dose as in [facility]. FINDINGS: Heart and mediastinum unremarkable. Resolved pulmonary opacities. No new focal consolidation. No suspicious pulmonary nodule within the study limitations. No pneumothorax or significant pleural fluid. Coronary artery calcification: None. Procedure Note Franco Parra MD - 05/02/2023 CT CHEST WITHOUT CONTRAST, 05/02/2023 5:45 PM CLINICAL HISTORY: R05.3-Chronic [id number]. COMPARISON: CT 04/03/2023 PROCEDURE COMMENTS: Multi-detector CT of the chest with multiplanar reconstructions per protocol. No contrast given. CT dose as in [facility]. FINDINGS: Heart and mediastinum unremarkable. Resolved pulmonaryopacities. No new focal consolidation. No suspicious pulmonary nodule within the study limitations. No pneumothorax or significant pleural fluid. Coronary artery calcification: None. IMPRESSION: Resolved pulmonary opacities which were likely infectious in nature. - Note: Radiology results need to be interpreted within a comprehensiveclinical context. If you have questions about the radiology report, please contactthe office of the ordering clinician. Nicolette Correa MD IMG CT ORDERABLES F inal Result * NT PROBNP (04/26/2023 2:34 PM EST) NT Pro-BNP 152 <=192 pg/mL 04/26/2023 8:09 PM EST [facility] Blood VENOUS BLOOD / Unknown Venipuncture / Unknown 04/26/2023 2:34 PM EST 04/26/2023 2:34 PM EST Narrative PREFERRED [facility] - 04/26/2023 8:09 PM EST An NT pro-BNP level less than 300 pg/mL in any patient, regardless of age, effectively rules out acute CHF with a 99% negative predictive value. Ingestion of rayshawn doses of biotin (>5 mg/day) taken within 8 hours of drawing blood sample can interfere with this immunoassay test. Nicolette Correa MD CHEMISTRY ORDERABLE S Final Result [facility] [address] [facility] , [place] [address] * CPAP TITRATION (04/20/2023 9:20 AM EST) [facility] KARI SLEEP OVERALL RESULT [facility] DATE OF STUDY 04/20/2023 [facility] Study Type Adult [facility] PATIENT WEIGHT 375.0 [facility] APNEA INDEX 0.9 SE LAB Apnea Hypopnea Index 12.7 [facility] RDI Index 12.7 [facility] Central Apnea Index 0.8 [facility] REM AHI 16.7 [facility] Min O2 Saturation 84 [facility] RDI REM 16.7 [facility] RDI nonREM 10.5 [facility] CPAP Device Name [facility] CPAP Pressure [facility] IPAP Pressure [facility] EPAP Pressure [facility] Auto Pressure Support [facility] Supplemental O2 [facility] Mask Type ResMed F20 [facility] Mask Size Small [facility] APAP Range [facility] Auto-IPAP Max [facility] Auto-IPAP Min [facility] Pressure Support [facility] PAP Compliance % [facility] Compliance Days [facility] Residual AHI [facility] PAP 90-95th Percentile [facility] 04/20/2023 9:20 AM EST us Kristen Louie MD SLEEP CENTER ORDERABLES Final Result [facility] [address] [place] [address] * ECG AND WAVEFORMS - TELEMETRY (04/04/2023 7:00 PM EST) Only the most recent of3 resultswithin the time period is included. [facility] ECG INTERPRET NSR [facility] 04/04/2023 7:00 PM EST Narrative [facility] - 04/04/2023 9:12 PM EST AD/HICUITY ROUTINE MO 0.16 QRS 0.09 QT 0.37 See Clinical Report link for waveform capture us Unknown Provider POINT OF CARE CARDIOLOGY Final Result [facility] [address] [place] [address] * ACUTE HEPATITIS PANEL (03/22/2023 3:16 PM EST) Hep Bs Ag Non-Reacti ve Non-Reacti ve 03/22/2023 9:50 PM EST PREFERRED LAB [facility], [facility] Hep B Core IgM Non-Reacti ve Non-Reacti ve 03/22/2023 9:50 PM EST PREFERRED LAB [facility], [facility] Hep A IgM Non-Reacti ve Non-Reacti ve 03/22/2023 9:50 PM EST PREFERRED LAB [facility], [facility] Hep C Ab Non-Reacti ve Non-Reacti ve 03/22/2023 9:50 PM EST PREFERRED LAB [facility], [facility] Blood VENOUS BLOOD / Unknown Venipuncture / Unknown 03/22/2023 3:16 PM EST 03/22/2023 3:16 PM EST [email or web address] CHEMISTRY ORDERABLES Final Result PREFERRED LAB [facility] [address] [facility] , [place] [address] * EC ECHOCARDIOGRAM COMPLETE W DOPPLER AND COLOR FLOW MAPPING (02/14/2023 9:22 AM EDT) Pathologist [facility] LV DIASTOLIC PLAX 4.504 cm PYRAMIS AORTIC STENOSIS no PYRAMIS MITRAL REGURGITATION no PYRAMIS Ejection Fraction 55-60% PYRAMIS Anatomical Region Laterality Modality Electrocardiogra phy 02/14/2023 9:01 AM EDT Impressions 02/14/2023 10:09 AM EDT Conclusions * Left ventricular chamber dimension is normal. * Left ventricular function is normal with an estimated ejection fraction of 55-60%. * The left ventricular diastolic function is indeterminate. * Right ventricular systolic function is normal. * No significant valve disease. Narrative Procedure Note Alex Lazo MD - 02/14/2023 IMPRESSION Conclusions * Left ventricular chamber dimension is normal. * Left ventricular function is normal with an estimated ejectionfraction of 55-60%. * The left ventricular diastolic function is indeterminate. * Right ventricular systolic function is normal. * No significant valve disease. Arminda Sidman CO[employer] S[employer] TE[employer] IMG ECHO ORDERABLES Final R esult * PROTEIN/CREATININE RATIO URINE (02/09/2023 10:14 AM EDT) Urine Protein 11.4 mg/dL 02/09/2023 4:59 PM EDT [facility]REFERRED [facility] Urine Creatinine 207.6 mg/dL 02/09/2023 4:59 PM EDT [facility], [facility] Ur Protein/Creat 0.05 <=0.14 mg/mg 02/09/2023 4:59 PM EDT [facility] Urine URINE SPECIMEN COLLECTION / Unknown 02/09/2023 10:14 AM EDT 02/09/2023 10:14 AM EDT us Pat Castro MD URINE ORDERABLES Final Result [facility], [facility] [address] [facility] , [place] [address] * [id number] 1 ABS, IGG/IGM/IGA -REF LAB (02/09/2023 10:00 AM EDT) B2 GP 1 IgG <10 <=20 SGU 02/10/2023 10:47 PM EDT [employer] B2 GP 1 IgM <10 <=20 SMU 02/10/2023 10:47 PM EDT [employer] Comment: INTERPRETIVE INFORMATION: [id number] I, IgG and IgM Antibody The persistent presence of IgG and/or IgM beta 2 glycoprotein I (B2GPI) antibodies is a laboratory criterion for the diagnosis of antiphospholipid syndrome (APS). Persistence is defined as moderate or high levels of IgG and/or IgM B2GPI antibodies detected in two or more specimens drawn at least 12 weeks apart (J Throm Haemost. 2006;4:295-306). B2GPI results greater than 20 SGU (IgG) and/or SMU (IgM) are considered positive based on the cutoff values established for this test. International reference materials and consensus units for anti-B2GPI antibodies have not been established (Clin Pat Acta. 2012;413(1-2):358-60; Arthritis Rheum. 2012;64(1):1-10.); results can be variable between different commercial immunoassays and cannot be compared. Strong clinical correlation is recommended for a diagnosis of APS. Low positive IgG and IgM B2GPI antibody levels should be interpreted in light of APS-specific clinical manifestations and/or other criteria phospholipid antibody tests. B2 GP 1 IgA <10 <=20 ALEJO 02/10/2023 10:47 PM EDT [facility] Comment: Performed By: [facility] [address] [place] [address] Metal Box Maker: Jair Araiza MD, PhD CLIA Number: [id number] Blood VENOUS BLOOD / Unknown Venipuncture / Unknown 02/09/2023 10:00 AM EDT 02/09/2023 10:00 AM EDT us Pat Castro MD CHEMISTRY ORDERABLES Final Resul t Performing Organization Address [facility] Co de Phone Number [facility] [address] [place] [address] * CARDIOLIPIN ANTIBODY, IGA-REF LAB (02/09/2023 10:00 AM EDT) Cardiolipin IgA Antibody <10 <=11 APL 02/11/2023 9:35 AM EDT [facility] Comment: INTERPRETIVE INFORMATION: Cardiolipin Antibodies, IgA <=11 APL: Negative 12-19 APL: Indeterminate 20-80 APL: Low to Moderately Positive 81 APL or above: High Positive Performed By: [facility] [address] [place] [id number] Metal Box Maker: Jair Araiza MD, PhD CLIA Number: [id number] Blood VENOUS BLOOD / Unknown Venipuncture / Unknown 02/09/2023 10:00 AM EDT 02/09/2023 10:00 AM EDT us Pat Castro MD IMMUNOLOGY ORDERABLES Final Resu lt Performing Organization Address [facility]/ZIP Co de Phone Number [facility] [address] [place], [place] [id number] * SSB (LA) IGG (02/09/2023 10:00 AM EDT) SSB (LA) IgG (AAU/mL) 17 <=180 02/10/2023 10:53 AM EDT [facility] Blood VENOUS BLOOD / Unknown Venipuncture / Unknown 02/09/2023 10:00 AM EDT 02/09/2023 10:00 AM EDT Narrative [facility] - 02/10/2023 10:53 AM EDT Interpretive Information: <150 AAU/mL ............. Negative 150-180 AAU/mL .......... Equivocal >180 AAU/mL ............. Positive This test is a semi-quantitative KORTNEY for the detection of IgG antibodies to SSB in human sera. Results are reported in 'autoantibody units' (AAU/mL), which are a relative measurement of antibodies present. Tests are not traceable to an international standard, so varying platforms/methodologies should not be considered equivalent. us Pat Castro MD IMMUNOLOGY ORDERABLES Final Resu lt [facility] [address] [facility] , [place] [address] * SSA (RO) IGG (02/09/2023 10:00 AM EDT) Pathologist [facility] SSA (RO) IgG (AAU/mL) 47 <=180 AAU/mL 02/10/2023 10:52 AM EDT [facility] Blood VENOUS BLOOD / Unknown Venipuncture / Unknown 02/09/2023 10:00 AM EDT 02/09/2023 10:00 AM EDT Narrative [facility] - 02/10/2023 10:52 AM EDT Interpretive Information: <150 AAU/mL ............. Negative 150-180 AAU/mL .......... Equivocal >180 AAU/mL ............. Positive This test is a semi-quantitative KORTNEY for the detection of IgG antibodies to SSA in human sera. Results are reported in 'autoantibody units' (AAU/mL), which are a relative measurement of antibodies present. Tests are not traceable to an international standard, so varying platforms/methodologies should not be considered equivalent. us Pat Castro MD IMMUNOLOGY ORDERABLES Final Resu lt Performing Organization Address [facility] Co de Phone Number [facility] [address] [facility] , [place] [address] * SYPHILIS SCREEN WITH REFLEX RPR QUANT (02/09/2023 10:00 AM EDT) Trep Ab Index 0.06 <=0.99 Index Value 02/09/2023 5:07 PM EDT [facility] Comment: < 1.00 - Non-Reactive >=1.00 - Reactive NOTE: All reactive results will be reflexed to Quantitative Non-Treponemal(RPR)test. Blood VENOUS BLOOD / Unknown Venipuncture / Unknown 02/09/2023 10:00 AM EDT 02/09/2023 10:00 AM EDT us Pat Castro MD CHEMISTRY ORDERABLES Final Resul t Performing Organization Address [facility] Phone Number [facility] [address] [facility] , [address] [place] [phone] * (ABNORMAL) THYROID PEROXIDASE (TPO) ANTIBODY (02/09/2023 10:00 AM EDT) TPO Ab 515.37(H) <=5.59 IU/mL 02/09/2023 5:14 PM EDT [facility] Blood VENOUS BLOOD / Unknown Venipuncture / Unknown 02/09/2023 10:00 AM EDT 02/09/2023 10:00 AM EDT Pat Castro MD IMMUNOLOGY ORDERABLES Final Resu lt Performing Organization Address [facility] Co de Phone Number [facility] [address] [facility] , [place] [address] * (ABNORMAL) TSH REFLEX (02/09/2023 10:00 AM EDT) Only the most recent of5 resultswithin the time period is included. TSH Reflex 0.235(L) 0.270 - 4.200 mcIU/mL 02/09/2023 3:11 PM EDT [facility] Blood VENOUS BLOOD / Unknown Venipuncture / Unknown 02/09/2023 10:00 AM EDT 02/09/2023 10:00 AM EDT Narrative PREFERRED [facility] - 02/09/2023 3:11 PM EDT Ingestion of rayshawn doses of biotin (>5 mg/day) taken within 8 hours of drawing blood sample can interfere with this immunoassay test. us Pat Castro MD CHEMISTRY ORDERABLES Final Resul t [facility] [address] [facility] , [place] [address] * GARZA ANTIBODY, IGG -REF LAB (02/09/2023 10:00 AM EDT) Pathologist [facility] Garza Ab IgG 3 0 - 40 AU/mL 02/10/2023 6:13 PM EDT [employer] Comment: INTERPRETIVE INFORMATION: Garza (CLIFF) Antibody, IgG 29 AU/mL or Less ............. Negative 30 - 40 AU/mL ................ Equivocal 41 AU/mL or Greater .......... Positive Garza antibody is highly specific (greater than 90 percent) for systemic lupus erythematosus (SLE) but only occurs in 30-35 percent of SLE cases. The presence of antibodies to Garza has variable associations with SLE clinical manifestations. Performed By: [facility] [address] [place] [id number] Metal Box Maker: Jair Araiza MD, PhD CLIA Number: [id number] Blood VENOUS BLOOD / Unknown Venipuncture / Unknown 02/09/2023 10:00 AM EDT 02/09/2023 10:00 AM EDT us Pat Castro MD IMMUNOLOGY ORDERABLES Final Resu lt [facility] [address] [place] [address] * COMPLEMENT PANEL (02/09/2023 10:00 AM EDT) C3 Complement 175 90 - 180 mg/dL 02/09/2023 3:52 PM EDT PREFERRED [facility] C4 Complement 20 10 - 40 mg/dL 02/09/2023 3:52 PM EDT [facility] Blood VENOUS BLOOD / Unknown Venipuncture / Unknown 02/09/2023 10:00 AM EDT 02/09/2023 10:00 AM EDT us Pat Castro MD IMMUNOLOGY ORDERABLES Final Resu lt [facility] [address] [facility] , [place] [address] * RIBONUCLEIC PROTEIN ANTIBODY, IGG -REF LAB (02/09/2023 10:00 AM EDT) Garza/SCRUB WHEEL OPERATOR Ab, IgG 3 0 - 19 Units 02/11/2023 2:08 PM EDT [facility] Comment: INTERPRETIVE INFORMATION: Garza/SCRUB WHEEL OPERATOR (CLIFF) Antibody, IgG 19 Units or Less ............. Negative 20 to 39 Units ............... Weak Positive 40 to 80 Units ............... Moderate Positive 81 Units or greater .......... Strong Positive Garza/SCRUB WHEEL OPERATOR antibodies are frequently seen in patients with mixed connective tissue disease (MCTD) and are also associated with other systemic autoimmune rheumatic diseases (SARDs) such as systemic lupus erythematosus (SLE), systemic sclerosis, and myositis. Antibodies targeting the Garza/SCRUB WHEEL OPERATOR antigenic complex also recognize Garza antigens, therefore, the Garza antibody response must be considered when interpreting these results. Performed By: [facility] [address] [place] [address] Metal Box Maker: Jair Araiza MD, PhD CLIA Number: [id number] Blood VENOUS BLOOD / Unknown Venipuncture / Unknown 02/09/2023 10:00 AM EDT 02/09/2023 10:00 AM EDT us Pat Castro MD IMMUNOLOGY ORDERABLES Final Resu lt [facility] [address] [place] [address] * DSDNA AB REFLEX TO TITER -REF LAB (02/09/2023 10:00 AM EDT) DNA Ab DS 7 0 - 24 IU 02/11/2023 11:26 PM EDT [facility] Comment: INTERPRETIVE INFORMATION: Double-Stranded DNA (dsDNA) Ab IgG KORTNEY 24 IU or less........Negative 25-30 IU.............Borderline Positive 30-60 IU.............Low Positive 60-200 IU............Positive 201 IU or greater....Strong Positive Positivity for anti-double stranded DNA (anti-dsDNA) IgG antibody is a diagnostic criterion of systemic lupus erythematosus (SLE). Specimens are initially screened by enzyme-linked immunosorbent assay (KORTNEY). If ordered as reflex ([id number]), positive KORTNEY results (>24 IU) will be reflexed to a highly specific IFA titer (Crithidia luciliae indirect fluorescent test [LILIANA]) for confirmation. Some patients with early or inactive SLE may be positive for anti-dsDNA IgG by KORTNEY but negative by LILIANA. If the patient is negative by LILIANA but positive by KORTNEY and clinical suspicion remains, consider antinuclear antibody (YNES) testing by IFA. Additional information and recommendations for testing may be found at [email or web address]. Performed By: [facility] [address] [place] [address] Metal Box Maker: Jair Araiza MD, PhD CLIA Number: [id number] Blood VENOUS BLOOD / Unknown Venipuncture / Unknown 02/09/2023 10:00 AM EDT 02/09/2023 10:00 AM EDT us Pat Castro MD IMMUNOLOGY ORDERABLES Final Resu lt [facility] [address] [place] [address] * (ABNORMAL) LUPUS ANTICOAGULANT PANEL -REF LAB (02/09/2023 10:00 AM EDT) PT D 13.0 12.0 - 15.5 sec 02/10/2023 10:14 PM EDT [facility] PTT D 39 32 - 48 sec 02/10/2023 10:14 PM EDT [facility] Thrombin Time Not Applicable 14.7 - 19.5 sec 02/10/2023 10:14 PM EDT Method, [facility]eli[facility] Reptilase Pat Not Applicable <=21.9 sec 02/10/2023 10:14 PM EDT [facility] PTT Hep Neut Not Applicable 32 - 48 sec 02/10/2023 10:14 PM EDT [facility] PTT Lexi Rflx Not Applicable 32 - 48 sec 02/10/2023 10:14 PM EDT [facility] Plt Neut Not Applicable Negative 02/10/2023 10:14 PM EDT [facility] DRVVT 27(L) 33 - 44 sec 02/10/2023 10:14 PM EDT [facility] DRV Lexi Not Applicable 33 - 44 sec 02/10/2023 10:14 PM EDT [facility] DRVVT Confirm Not Applicable Negative ratio 02/10/2023 10:14 PM EDT [facility] Hexag Phos Rflx Not Applicable Negative 02/10/2023 10:14 PM EDT [facility] Lupus Anticoagulant Interp See Note 02/10/2023 10:14 PM EDT [facility] Comment: Lupus anticoagulant not detected. The phospholipid-dependent screening tests (PTT, DRVVT) are not prolonged. Lupus anticoagulant antibodies are heterogeneous and antibody titers fluctuate over time. Laboratory tests used to identify lupus anticoagulants demonstrate variable sensitivity. If there is strong clinical suspicion for antiphospholipid antibody syndrome (APS), consider testing for cardiolipin and beta-2 glycoprotein 1 antibodies (IgG and IgM) if this testing has not already been performed. Performed By: [facility] [address] [place] [address] Metal Box Maker: Jair Araiza MD, PhD CLIA Number: [id number] Blood VENOUS BLOOD / Unknown Venipuncture / Unknown 02/09/2023 10:00 AM EDT 02/09/2023 10:00 AM EDT us Pat Castro MD CHEMISTRY ORDERABLES Final Resul t [facility] [address] [place] [address] * CARDIOLIPIN ANTIBODIES IGG/ IGM-REF LAB (02/09/2023 10:00 AM EDT) Cardiolipin IgG Antibody <10 <=14 GPL 02/11/2023 9:35 AM EDT [facility] Comment: INTERPRETIVE INFORMATION: Anti-Cardiolipin IgG Ab <=14 GPL: Negative 15-19 GPL: Indeterminate 20-80 GPL: Low to Moderately Positive 81 GPL or above: High Positive The persistent presence of IgG and/or IgM cardiolipin (CL) antibodies in moderate or high levels (greater than 40 GPL and/or greater than 40 MPL units) is a laboratory criterion for the diagnosis of antiphospholipid syndrome (APS). Persistence is defined as moderate or high levels of IgG and/or IgM CL antibodies detected in two or more specimens drawn at least 12 weeks apart (J Throm Haemost. 2006;4:295-306). Lower positive levels of IgG and/or IgM CL antibodies (above cutoff but less than 40 GPL and/or less than 40 MPL units) may occur in patients with the clinical symptoms of APS; therefore, the actual significance of these levels is undefined. Results should not be used alone for diagnosis and must be interpreted in light of APS-specific clinical manifestations and/or other criteria phospholipid antibody tests. Cardiolipin IgM Antibody 10 <=12 MPL 02/11/2023 9:35 AM EDT [facility] Comment: INTERPRETIVE INFORMATION: Anti-Cardiolipin IgM <=12 MPL: Negative 13-19 MPL: Indeterminate 20-80 MPL: Low to Moderately Positive 81 MPL or above: High Positive The persistent presence of IgG and/or IgM cardiolipin (CL) antibodies in moderate or high levels (greater than 40 GPL and/or greater than 40 MPL units) is a laboratory criterion for the diagnosis of antiphospholipid syndrome (APS). Persistence is defined as moderate or high levels of IgG and/or IgM CL antibodies detected in two or more specimens drawn at least 12 weeks apart (J Throm Haemost. 2006;4:295-306). Lower positive levels of IgG and/or IgM CL antibodies (above cutoff but less than 40 GPL and/or less than 40 MPL units) may occur in patients with the clinical symptoms of APS; therefore, the actual significance of these levels is undefined. Results should not be used alone for diagnosis and must be interpreted in light of APS-specific clinical manifestations and/or other criteria phospholipid antibody tests. Performed By: [facility] [address] [place] [address] Metal Box Maker: Jair Araiza MD, PhD CLIA Number: [id number] Blood VENOUS BLOOD / Unknown Venipuncture / Unknown 02/09/2023 10:00 AM EDT 02/09/2023 10:00 AM EDT us Pat Castro MD IMMUNOLOGY ORDERABLES Final Resu lt [facility] [address] [place] [address] * T4, FREE (THYROXINE) (02/09/2023 10:00 AM EDT) Only the most recent of13 resultswithin the time period is included. [facility] Signature Free T4 1.70 0.80 - 1.80 ng/dL 02/09/2023 3:28 PM EDT [facility] Blood VENOUS BLOOD / Unknown Venipuncture / Unknown 02/09/2023 10:00 AM EDT 02/09/2023 10:00 AM EDT Narrative PREFERRED [facility] - 02/09/2023 3:28 PM EDT Ingestion of rayshawn doses of biotin (>5 mg/day) taken within 8 hours of drawing blood sample can interfere with this immunoassay test. Pat Castro MD CHEMISTRY ORDERABLES Final Resul t Performing Organization Address [facility] Co de Phone Number PREFERRED [facility] [address] [facility], [address] [place] [phone] * POLYSOMNOGRAPHY 4 OR MORE PARAMETERS (01/24/2023 9:25 AM EDT) [facility] OVERALL RESULT [facility] DATE OF STUDY 01/24/2023 [facility] Study Type Adult [facility] PATIENT WEIGHT 375.0 [facility] APNEA INDEX 0.2 SE LAB Apnea Hypopnea Index 15.6 [facility] RDI Index 15.6 [facility] Central Apnea Index 0.0 [facility] REM AHI 38.3 [facility] Min O2 Saturation 70 [facility] RDI REM 38.3 [facility] RDI nonREM 12.1 [facility] CPAP Device Name [facility] CPAP Pressure [facility] IPAP Pressure [facility] EPAP Pressure [facility] Auto Pressure Support [facility] Supplemental O2 [facility] Mask Type [facility] Mask Size [facility] APAP Range [facility] Auto-IPAP Max [facility] Auto-IPAP Min [facility] Pressure Support [facility] PAP Compliance % [facility] Compliance Days [facility] Residual AHI [facility] PAP 90-95th Percentile [facility] 01/24/2023 9:25 AM EDT us Kristen Louie MD SLEEP CENTER ORDERABLES Final Result Performing Organization Address City/[facility]/ZIP Co de Phone Number [facility] [address] [place] [address] * CT SOFT TISSUE NECK W CONTRAST (12/03/2022 8:11 AM EDT) Anatomical Region Laterality Modality Neck Computed Tomogra phy 12/03/2022 8:11 AM EDT Impressions 12/03/2022 8:46 AM EDT 1. No soft tissue mass, inflammatory process or lymphadenopathy. - - Note: Radiology results need to be interpreted within a comprehensive clinical context. If you have questions about the radiology report, please contact the office of the ordering clinician. Narrative 12/03/2022 8:[address] SOFT TISSUE NECK W CONTRAST: 12/03/2022 8:11 AM CLINICAL HISTORY: 47 years-old with R13.13-Dysphagia, pharyngeal [id number] COMPARISON: MRI cervical spine 03/01/2016. PROCEDURE COMMENTS: 3 mm axial images obtained from skull base to below krysten following administration of 90 mL Isovue 370. 3 mm coronal and sagittal reconstructions obtained. A BB marker was placed to indicate site of interest. FINDINGS: BB marker is placed at right posterior lateral anterior neck, tucked in between neck and shoulder skin fold. There is no immediate underlying or other soft tissue mass or inflammatory process. Superficial and deep fat planes are preserved. No cervical or supraclavicular lymphadenopathy. Airway mucosal contours and attenuation are normal. Epiglottis and vocal cords are normal. Both carotid bifurcations and proximal IACs are located in deep retropharyngeal space. Parotid and submandibular glands are normal. Thyroid gland appears grossly normal. There is some streak and beam hardening artifact across it from the shoulders. Cervical spine is straight. Due to beam hardening artifact cervical osseous structures are outer margins are mildly indistinct. No gross or significant cervical spondylosis. No upper lung infiltrates. Included portions of sinuses are clear. Both superior posterior upper molars and inferior right posterior molar are impacted. Inferior brain is unremarkable. Orbital soft tissues are normal. Procedure Note Maggie Villeda MD - 12/03/2022 CT SOFT TISSUE NECK W CONTRAST: 12/03/2022 8:11 AM CLINICAL HISTORY: 47 years-old with R13.13-Dysphagia, [id number] COMPARISON: MRI cervical spine 03/01/2016. PROCEDURE COMMENTS: 3 mm axial images obtained from skull base to belowcarina following administration of 90 mL Isovue 370. 3 mm coronal and sagittal reconstructions obtained. A BB marker was placed to indicate site ofinterest. FINDINGS: BB marker is placed at right posterior lateral anterior neck, tucked inbetween neck and shoulder skin fold. There is no immediate underlying or othersoft tissue mass or inflammatory process. Superficial and deep fat planes are preserved. No cervical or supraclavicular lymphadenopathy. Airway mucosal contours and attenuation are normal. Epiglottis and vocalcords are normal. Both carotid bifurcations and proximal IACs are located indeep retropharyngeal space. Parotid and submandibular glands are normal.Thyroid gland appears grossly normal. There is some streak and beam hardeningartifact across it from the shoulders. Cervical spine is straight. Due to beam hardening artifact cervicalosseous structures are outer margins are mildly indistinct. No gross orsignificant cervical spondylosis. No upper lung infiltrates. Included portions of sinuses are clear. Both superior posterior uppermolars and inferior right posterior molar are impacted. Inferior brain isunremarkable. Orbital soft tissues are normal. IMPRESSION: 1. No soft tissue mass, inflammatory process or lymphadenopathy. - - Note: Radiology results need to be interpreted within a comprehensiveclinical context. If you have questions about the radiology report, please contactthe office of the ordering clinician. Arminda Wilson APRN IMG CT ORDERABLES Final Res ult * POCT GLYCATED HEMOGLOBIN, TOTAL (10/28/2022 11:55 AM EDT) Only the most recent of2 resultswithin the time period is included. 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 Grav, UA 1.025 1.001 - 1.035 G/DL SEP OFFICE Blood, UA neg POS/NEG SEP OFFICE pH, UA 7 5.0 - 8 SEP OFFICE Protein, UA neg POS/NEG SEP OFFICE Urobilinogen, UA 1 0.2 - 1.0 MG/DL SEP OFFICE Nitrite, UA neg POS/NEG SEP OFFICE Leukocytes, UA neg POS/NEG SEP OFFICE Appear BF SEP OFFICE Lot Number na SEP OFFICE Expiration Date na SEP OFFICE SeriAl # SEP OFFICE Urine 10/28/2022 11:4 8 AM EDT Arminda Katie COAL SAMPLE TESTER POINT OF CARE TEST ORDERABL ES Final Result Performing Organization Address City/[facility]/ZIP Co de Phone Number SEP OFFICE * MISCELLANEOUS LAB (09/22/2022 3:06 PM EDT) [facility] COMMENT See Scanned Image 10/02/2022 7:41 AM EDT [facility] Blood VENOUS BLOOD / Unknown Venipuncture / Unknown 09/22/2022 3:06 PM EDT 09/27/2022 5:03 PM EDT 3Guppiesulding COAL SAMPLE TESTER HEMATOLOGY ORDERABLES Final Result Performing Organization Address City/[facility]/ZIP Co de Phone Number EXTERNAL LAB See Scanned Report [facility] [address] [place] [address] * VITAMIN B12/ FOLIC ACID (09/22/2022 3:06 PM EDT) Only the most recent of3 resultswithin the time period is included. [facility] Vitamin B12 377 232 - 1,245 pg/mL 09/22/2022 8:11 PM EDT [facility] Folate 8.29 >=4.80 ng/mL 09/22/2022 8:11 PM EDT [facility] Blood VENOUS BLOOD / Unknown Venipuncture / Unknown 09/22/2022 3:06 PM EDT 09/22/2022 3:06 PM EDT Narrative [facility] - 09/22/2022 8:11 PM EDT Ingestion of rayshawn doses of biotin (>5 mg/day) taken within 8 hours of drawing blood sample can interfere with this immunoassay test. Arminda Wilson COAL SAMPLE TESTER CHEMISTRY ORDERABLES Final Result Performing Organization Address [facility] Co de Phone Number [facility] [address] [facility] , [place] [address] * XR KNEE LEFT AP LATERAL AND SUNRISE STANDING (08/19/2022 2:43 PM EDT) Narrative Osvaldo Ren - 08/19/2022 2:43 PM EDT Please see physician's note from office encounter for x-ray imaging result Kendall Garcia MD IMG DIAGNOSTIC IMAGING ORDERABL ES Final Result * MO ARTHROCENTESIS ASPIR&/INJ MAJOR JT/BURSA W/O US (08/19/2022 2:15 PM EDT) Narrative [facility]TH[facility] - 08/19/2022 2:15 PM EDT Chio Duncan, ATC 08/19/2022 4:57 PM Large Joint Injection/Arthrocentesis: L knee on 08/19/2022 2:15 PM Indications: pain and joint swelling Details: 22 G needle, anterolateral approach Medications: 1 mg triamcinolone acetonide 40 mg/mL; 3 mL BUPivacaine (PF) 0.25 % (2.5 mg/mL) Outcome: tolerated well, no immediate complications Procedure, treatment alternatives, risks and benefits explained, specific risks discussed. Consent was given by the patient. Patient was prepped and draped in the usual sterile fashion. Kendall Garcia MD PROCEDURE/MINOR SURGICAL ORDERA BLES Final Result Performing Organization Address [facility] Co de Phone Number ORTHOCINCY * (ABNORMAL) COMPLIANCE PANEL, URINE (06/14/2022 2:28 PM EST) Only the most recent of3 resultswithin the time period is included. Medications Expected Gabapentin 05/26 3:38 PM EST [facility] Barbiturates Absent Cutoff 200 ng/mL 06/15/2022 3:38 PM EST [facility] THC <10 Cutoff 10 ng/mL ng/mL 06/15/2022 3:38 PM EST [facility] Comment:7-habywsz-qkwslwhhny cannabinol; does not distinguish between prescribed and illicit forms THC Glucuronide <10 Cutoff 10 ng/mL ng/mL 06/15/2022 3:38 PM EST [facility] Comment:Metabolite of THC Amphetamine <50 Cutoff 50 ng/mL ng/mL 06/15/2022 3:38 PM EST [facility] Comment:e.g., Adderall, Vyva nse, Dexedrine, Obetrol MDA <50 Cutoff 50 ng/mL ng/mL 06/15/2022 3:38 PM EST [facility] Comment:Metabolite of MDMA, and MDEA MDEA <50 Cutoff 50 ng/mL ng/mL 06/15/2022 3:38 PM EST [facility] Comment:e.g., Gin MDMA <50 Cutoff 50 ng/mL ng/mL 06/15/2022 3:38 PM EST [facility] Comment:e.g., Ecstasy, Anastasia Methamphetamine <50 Cutoff 50 ng/mL ng/mL 06/15/2022 3:38 PM EST [facility] Comment:d- and l- isomers ar e not distinguished by this test; may reflect Danyel's inhaler, Desoxyn, Selegiline, or illicit source Phentermine <50 Cutoff 50 ng/mL ng/mL 06/15/2022 3:38 PM EST [facility] Comment:e.g., Adipex, Lomair a, Ionamin,Fastin,Zantryl Gabapentin >2,000(H) Cutoff 50 ng/mL ng/mL 06/15/2022 3:38 PM EST [facility] Comment:e.g, Neurontin Pregabalin <50 Cutoff 50 ng/mL ng/mL 06/15/2022 3:38 PM EST [facility] Comment:Lyrica Alprazolam <8 Cutoff 8 ng/mL ng/mL 06/15/2022 3:38 PM EST [facility] Comment:e.g, Xanax, Niravam alpha-Hydroxyalprazolam <25 Cutoff 25 ng/mL ng/mL 06/15/2022 3:38 PM EST [facility] Comment:Metabolite of Alpraz olam Clonazepam <10 Cutoff 10 ng/mL ng/mL 06/15/2022 3:38 PM EST [facility] Comment:e.g., Klonopin, Clon opin 7-Aminoclonazepam <25 Cutoff 25 ng/mL ng/mL 06/15/2022 3:38 PM EST [facility] Comment:Metabolite of Clonaz epam Diazepam <10 Cutoff 10 ng/mL ng/mL 06/15/2022 3:38 PM EST [facility] Comment:e.g, Valium, Diastat Nordiazepam <25 Cutoff 25 ng/mL ng/mL 06/15/2022 3:38 PM EST [facility] Comment:Metabolite of Chlord iazepoxide(Librium), Clorazepate(Tranxene), Diazepam, Halazepam, (Alapryl), Prazepam(Centrax) Flunitrazepam <50 Cutoff 50 ng/mL ng/mL 06/15/2022 3:38 PM EST [facility] Comment:e.g.,Rohypnol, Narco zep 7-Aminoflunitrazepam <50 Cutoff 50 ng/mL ng/mL 06/15/2022 3:38 PM EST [facility] Comment:Metabolite of Flunit razepam Flurazepam <50 Cutoff 50 ng/mL ng/mL 06/15/2022 3:38 PM EST [facility] Comment:e.g., Dalmane Hydroxyethylflurazepam <50 Cutoff 50 ng/mL ng/mL 06/15/2022 3:38 PM EST [facility] Comment:Metabolite of Fluraz epam Lorazepam <50 Cutoff 50 ng/mL ng/mL 06/15/2022 3:38 PM EST [facility] Comment:e.g., Ativan Lorazepam Glucuronide <50 Cutoff 50 ng/mL ng/mL 06/15/2022 3:38 PM EST [facility] Comment:Metabolite of Loraze jess Midazolam <50 Cutoff 50 ng/mL ng/mL 06/15/2022 3:38 PM EST [facility] Comment:e.g., Versed alpha-hydroxymidazolam <50 Cutoff 50 ng/mL ng/mL 06/15/2022 3:38 PM EST [facility] Comment:Metabolite of Versed Oxazepam <50 Cutoff 50 ng/mL ng/mL 06/15/2022 3:38 PM EST [facility] Comment:e.g., Serax; also Me tabolite of Temazepam, and Nordiazepam Oxazepam Glucuronide <50 Cutoff 50 ng/mL ng/mL 06/15/2022 3:38 PM EST [facility] Comment:Metabolite of Oxazep am Temazepam <50 Cutoff 50 ng/mL ng/mL 06/15/2022 3:38 PM EST [facility] Comment:e.g., Restoril; also Metabolite of Diazepam Temazepam Glucuronide <50 Cutoff 50 ng/mL ng/mL 06/15/2022 3:38 PM EST [facility] Comment:Metabolite of Temaze jess and Diazepam Triazolam <50 Cutoff 50 ng/mL ng/mL 06/15/2022 3:38 PM EST [facility] Comment:e.g., Halcion alpha-hydroxytriazolam <50 Cutoff 50 ng/mL ng/mL 06/15/2022 3:38 PM EST [facility] Comment:Metabolite of Triazo rush Buprenorphine <5 Cutoff 5 ng/mL ng/mL 06/15/2022 3:38 PM EST [facility] Comment:e.g., Suboxone, Subu lalo,Sublocade, Buprenex Buprenorphine Glucuronide <10 Cutoff 10 ng/mL ng/mL 06/15/2022 3:38 PM EST [facility] Comment:Buprenorphine Metabo lite Norbuprenorphine <5 Cutoff 5 ng/mL ng/mL 06/15/2022 3:38 PM EST [facility] Comment:Buprenorphine Metabo lite Norbuprenorphine Glucuronide <10 Cutoff 10 ng/mL ng/mL 06/15/2022 3:38 PM EST [facility] Comment:Buprenorphine Metabo lite Benzoylecgonine <50 Cutoff 50 ng/mL ng/mL 06/15/2022 3:38 PM EST [facility] Comment:Cocaine Metabolite Fentanyl <1 Cutoff 1 ng/mL ng/mL 06/15/2022 3:38 PM EST [facility] Comment:e.g.,Duragesic, Oral et, Actiq, Sublimaze, Innovar, Lazanda Norfentanyl <1 Cutoff 1 ng/mL ng/mL 06/15/2022 3:38 PM EST [facility] Comment:Metabolite of Fentan yl 6-Monoacetylmorphine (6MAM) <10 Cutoff 10 ng/mL ng/mL 06/15/2022 3:38 PM EST [facility] Comment:Metabolite of Heroin ; Morphine is expected Methadone <50 Cutoff 50 ng/mL ng/mL 06/15/2022 3:38 PM EST [facility] Comment:e.g., Dolophine, Met hadose, Amidone EDDP <50 Cutoff 50 ng/mL ng/mL 06/15/2022 3:38 PM EST [facility] Comment:Methadone Metabolite Carisoprodol <100 Cutoff 100 ng/mL ng/mL 06/15/2022 3:38 PM EST [facility] Comment:e.g., Soma Meprobamate <100 Cutoff 100 ng/mL ng/mL 06/15/2022 3:38 PM EST [facility] Comment:e.g., Rehoboth, Equa nil, Micrainin, Equagesic; Metabolite of Carisoprodol Codeine <50 Cutoff 50 ng/mL ng/mL 06/15/2022 3:38 PM EST [facility] Comment:e.g., Acetaminophen w/Codeine, Tylenol3 w/ Codeine Codeine Glucuronide <50 Cutoff 50 ng/mL ng/mL 06/15/2022 3:38 PM EST [facility] Comment:Metabolite of Codein e Meperidine <50 Cutoff 50 ng/mL ng/mL 06/15/2022 3:38 PM EST [facility] Comment:e.g., Demerol, Pethi dine Normeperidine <50 Cutoff 50 ng/mL ng/mL 06/15/2022 3:38 PM EST [facility] Comment:Metabolite of Meperi dine Morphine <50 Cutoff 50 ng/mL ng/mL 06/15/2022 3:38 PM EST [facility] Comment:e.g., MS Contin, Tania anol; Metabolite of Codeine and Heroin; may reflect poppy seed ingestion Jdenepsg-1-Bvgoofjsrnb <25 Cutoff 25 ng/mL ng/mL 06/15/2022 3:38 PM EST [facility] Comment:Metabolite of Morphi ne. Huqpnlsf-4-Bhgzklsdmtt <25 Cutoff 25 ng/mL ng/mL 06/15/2022 3:38 PM EST [facility] Comment:Metabolite of Morphi ne. Naloxone <25 Cutoff 25 ng/mL ng/mL 06/15/2022 3:38 PM EST [facility] Comment:e.g., Narcan, Evzio Hydrocodone <50 Cutoff 50 ng/mL ng/mL 06/15/2022 3:38 PM EST [facility] Comment:e.g., Lorcet, Lortab , Vicodin, [place]; Minor Metabolite of Codeine Dihydrocodeine <50 Cutoff 50 ng/mL ng/mL 06/15/2022 3:38 PM EST [facility] Comment:e.g., Didrate, Parzo ne, Parlor, Synalgos; Metabolite of Hydrocodone Norhydrocodone <50 Cutoff 50 ng/mL ng/mL 06/15/2022 3:38 PM EST [facility] Comment:Metabolite of Hydroc odone Hydromorphone <50 Cutoff 50 ng/mL ng/mL 06/15/2022 3:38 PM EST [facility] Comment:e.g., Dilaudid; also Metabolite of Hydrocodone and Minor Metabolite of Morphine Hydromorphone Glucuronide <50 Cutoff 50 ng/mL ng/mL 06/15/2022 3:38 PM EST [facility] Comment:Metabolite of Hydrom orphone Oxycodone <50 Cutoff 50 ng/mL ng/mL 06/15/2022 3:38 PM EST [facility] Comment:e.g., Oxycontin, Per cocet, Endocet, Percodan, Roxicet Noroxycodone <50 Cutoff 50 ng/mL ng/mL 06/15/2022 3:38 PM EST [facility] Comment:Metabolite of Oxycod one Oxymorphone <50 Cutoff 50 ng/mL ng/mL 06/15/2022 3:38 PM EST [facility] Comment:e.g., Opana; Metabol ite of Oxycodone Oxymorphone Glucuronide <50 Cutoff 50 ng/mL ng/mL 06/15/2022 3:38 PM EST [facility] Comment:Metabolite of Oxycod one Noroxymorphone <50 Cutoff 50 ng/mL ng/mL 06/15/2022 3:38 PM EST [facility] Comment:Metabolite of Oxycod one, and Oxymorphone, Noroxycodone Metabolite Tramadol <50 Cutoff 50 ng/mL ng/mL 06/15/2022 3:38 PM EST [facility] Comment:e.g., Ultram, ConZip L-Adgalwxxp-xfy-Tramadol <50 Cutoff 50 ng/mL ng/mL 06/15/2022 3:38 PM EST [facility] Comment:Metabolite of Tramad ol Tapentadol <50 Cutoff 50 ng/mL ng/mL 06/15/2022 3:38 PM EST [facility] Comment:Nucynta Tapentadol-Glucuronide <50 Cutoff 50 ng/mL ng/mL 06/15/2022 3:38 PM EST [facility] Comment:Metabolite of Tapent adol Urine Creatinine 152.3 mg/dL 06/15/19 3:38 PM EST [facility] Comment: Greater than 20: Consistent with valid sample Greater than 2 but less than 20: Possible dilution Less than 2: Questionable valid sample Urine URINE SPECIMEN COLLECTION / Unknown 06/14/2022 2:28 PM EST 06/14/2022 2:28 PM EST Narrative [facility] - 06/15/2022 3:38 PM EST The absence of expected drug(s), and/or drug metabolite(s), may indicate non-compliance, diluted or adulterated urine, poor drug absorption, concentration of drug below the cut-off, timing of specimen collection relative to administration of drug, or limitations of testing. If results do not fit clinical expectations, please reach out to the Toxicology department at [phone]. Specimens are held for 7 days. This test was developed, and its performance characteristics determined by [facility] ([facility] It has not been cleared or approved by the FDA. This test is used for clinical purposes. It should not be regarded as investigational or for research. [facility] is certified under the Clinical Laboratory Improvement Amendments (CLIA) as qualified to perform high complexity clinical laboratory testing. Arminda Sidman COAL SAMPLE TESTER URINE ORDERABLES Final Resu lt [facility] [address] [facility] , [place] [address] * (ABNORMAL) LIPID PANEL REFLEX (06/14/2022 2:23 PM EST) Cholesterol 136 <200 mg/dL 06/14/2022 8:51 PM EST [facility] Comment: < 200 Desirable 200 - 239 Borderline High >= 240 High Triglyceride 193(H) <150 mg/dL 06/14/2022 8:51 PM EST [facility], [facility] Comment: < 150 Normal 150 - 199 Borderline High 200 - 499 High >= 500 Very High HDL 33(L) >=40 mg/dL 06/14/2022 8:51 PM EST [facility] Comment: > 60 Optimal 40 - 60 Acceptable < 40 Low LDL Calculated 71 <100 mg/dL 06/14/2022 8:51 PM EST [facility] Non-HDL-C Calculated 103 <=129 mg/dL 06/14/2022 8:51 PM EST [facility] Comment: <130 Desirable 130-159 Above Desirable 160-189 Borderline High 190-219 High >= 220 Very High Fasting Specimen? No None 023 8:51 PM EST [facility] Blood VENOUS BLOOD / Unknown Venipuncture / Unknown 06/14/2022 2:23 PM EST 06/14/2022 2:23 PM EST Arminda Wilson APRN CHEMISTRY ORDERABLES Final Result [facility], [facility] [address] [facility] [address] [address], [place] [address] [facility] [address] [place] [address] * (ABNORMAL) LIPID SCREEN (07/16/2021 1:40 PM EDT) Only the most recent of3 resultswithin the time period is included. Cholesterol 142 <200 mg/dL 07/16/2021 7:41 PM EDT [facility] Comment: < 200 Desirable 200 - 239 Borderline High >= 240 High Triglyceride 139 <150 mg/dL 07/16/2021 7:41 PM EDT [facility] Comment: < 150 Normal 150 - 199 Borderline High 200 - 499 High >= 500 Very High HDL 39(L) >=40 mg/dL 07/16/2021 7:41 PM EDT [facility] Comment: > 60 Optimal 40 - 60 Acceptable < 40 Low LDL Calculated 78 <100 mg/dL 07/16/2021 7:41 PM EDT [facility] Comment: < 100 Optimal 100 - 129 Near or above optimal 130 - 159 Borderline High 160 - 189 High >= 190 Very High Non-HDL-C Calculated 103 <=129 mg/dL 07/16/2021 7:41 PM EDT [facility] Comment: <130 Desirable 130-159 Above Desirable 160-189 Borderline High 190-219 High >= 220 Very High Fasting Specimen? Yes None 022 7:41 PM EDT [facility] Blood VENOUS BLOOD / Unknown Venipuncture / Unknown 07/16/2021 1:40 PM EDT 07/16/2021 1:40 PM EDT Arminda Wilson APRN CHEMISTRY ORDERABLES Final Result [facility] [address] [facility] , [place] [address] [facility] [address] [place] [address] * CORONAVIRUS 2019 (04/06/2021 10:53 AM EST) Only the most recent of3 resultswithin the time period is included. [facility] CORONAVIRUS [id number] Not Detected Not Detected 04/07/2021 12:48 AM EST [facility] Comment: Caution should be exercised when interpreting a result of 'Not Detected'. A result of 'Not Detected' does not rule out COVID-19 and cannot be used as sole basis for treatment or patient management decisions. If COVID-19 is still suspected following a 'Not Detected' result, re-testing should be considered. This test is a nucleic acid amplification test intended for the qualitative detection of nucleic acid from the SARS-CoV-2 in upper respiratory samples collected from individuals suspected of COVID-19. Test is performed on the [employer] platform under the FDA's Emergency Use Authorization (EUA). [facility] Provider Fact Sheet: https://www.fda.gov/media/627245/download [facility] Patient Fact Sheet: https://www.fda.gov/media/814692/download Performed at [facility] [address] [place] [address]. [address] CLIA [id number] Swab BOTH ANTERIOR NARES / Unknown 04/06/2021 10:53 AM EST 04/06/2021 10:53 AM EST Arminda Wilson APRN MICROBIOLOGY - GENERAL LAKESHIA BALDWIN Final Result [facility] [address], [place] [address] * (ABNORMAL) WOUND CULTURE (STAIN INCLUDED) (09/08/2020 1:21 PM EDT) Only the most recent of7 resultswithin the time period is included. Culture Positive Growth(A) 2020 7:36 AM EDT [facility] Culture Sparse growth of Staphylococcus aureus SUSCEPTIBI LITY RESULT 09/11/2020 7:36 AM EDT [facility] Stain Moderate RBCs 09/11/2020 7:36 AM EDT [facility] Stain Rare WBCs 09/11/2020 7:36 AM EDT [facility] Stain No organisms seen 021 7:36 AM EDT [facility] Swab [place] / Unknown 09/08/2020 1:21 PM EDT 09/08/2020 1:21 PM EDT Narrative Organism Antibiotic Method Susceptibility Staphylococcus aureus Ampicillin SUSCEPTIBILITY RESU LT Staphylococcus aureus Benzylpenicillin SUSCEPTIBILITY RESULT >=0.5 ug/mL: Resistant Staphylococcus aureus Beta Lactamase SUSCEPTIBILITY RE SULT Staphylococcus aureus Ciprofloxacin SUSCEPTIBILITY RES ULT <=0.5 ug/mL: Susceptible Staphylococcus aureus Clindamycin SUSCEPTIBILITY RESU LT <=0.25 ug/mL: Susceptible Staphylococcus aureus Erythromycin SUSCEPTIBILITY RESU LT >=8 ug/mL: Resistant Staphylococcus aureus Gentamicin SUSCEPTIBILITY RESU LT <=0.5 ug/mL: Susceptible Staphylococcus aureus Gentamicin synergy SUSCEPTIBILIT Y RESULT Staphylococcus aureus Levofloxacin SUSCEPTIBILITY RESU LT 0.25 ug/mL: Susceptible Staphylococcus aureus Linezolid SUSCEPTIBILITY RESU LT Staphylococcus aureus Moxifloxacin SUSCEPTIBILITY RESU LT <=0.25 ug/mL: Susceptible Staphylococcus aureus Nitrofurantoin SUSCEPTIBILITY RE SULT Staphylococcus aureus Oxacillin SUSCEPTIBILITY RESU LT 0.5 ug/mL: Susceptible Staphylococcus aureus Synercid SUSCEPTIBILITY RESU LT Staphylococcus aureus Rifampin SUSCEPTIBILITY RESU LT <=0.5 ug/mL: Susceptible Staphylococcus aureus Streptomycin synergy SUSCEPTIBIL ITY RESULT Staphylococcus aureus Tetracycline SUSCEPTIBILITY RESU LT <=1 ug/mL: Susceptible Staphylococcus aureus Tigecycline SUSCEPTIBILITY RESU LT Staphylococcus aureus Trimethoprim/Sulfa metho xazole SUSCEPTIBILITY RESULT <=10 ug/mL: Susceptible Staphylococcus aureus Vancomycin SUSCEPTIBILITY RESU LT 1 ug/mL: Susceptible Comment:Rifampin and Gentami murray should not be used alone for antimicrobial therapy. For methicillin resistant staphylococci, ciprofloxacin should also not be used alone. Manuel Moran MD MICROBIOLOGY - GENERAL ORDERABLE S Final Result [facility] [address], [facility] [address] * PATHOLOGY TISSUE REQUEST (08/11/2020 9:57 AM EDT) Only the most recent of2 resultswithin the time period is included. CASE REPORT Surgical Pathology Case: [id number] Authorizing Provider: Beverly Hernandez DO Collected: 08/11/2020 0957 Ordering Location: [facility] Received: 08/11/2020 1312 Pathologist: Teo Resendez MD Specimen: Uterus, Left Ovary, cervix and uterus 08/13/2020 7:40 PM EDT [facility] FINAL DIAGNOSIS Uterus and left ovary, hysterectomy and left oophorectomy: - Focal inactive endometrium. - Adenomyosis. - Leiomyoma (1.0 cm in greatest dimension) - Cervix with nabothian cyst - Left ovary with benign cyst 08/13/2020 7:40 PM EDT [facility] at 1940 EDT MICROSCOPIC DESCRIPTION Microscopic examination is performed and the findings corroborate the diagnosis. 08/13/2020 7:40 PM EDT [facility] EMBEDDED IMAGES 08/13/2020 7:40 PM T [facility] GROSS DESCRIPTION Part A) Received in formalin in a container labeled with the patient's name as Gisela Perez, hospital number, and left ovary, cervix, and uterus is a 90 g, 9.3 cm superior to inferior x 6.5 cm wide x 4.7 cm anterior to posterior total hysterectomy with a 3.8 cm in length x 3.1 cm in diameter cervix and a 1.1 x 0.3 cm os. Received from the uterus is a 3.4 x 2.1 x 2.3 cm ovary with a 1.8 x 1.6 x 1.1 cm cystic structure present. The ovary is inked blue. The specimen is sectioned to show the cervix has gary cut surfaces with a smooth and glistening ectocervix and herringbone endocervical mucosa. The endometrium is 4.4 cm superior to inferior x 2.3 cm cornu to cornu x up to 0.1 cm thick with diffuse stenotic and denuded areas. The anterior endometrium has a 1.9 cm superior to inferior x 0.9 cm wide x 1.4 cm anterior to posterior cavitation from the endometrial cavity into the myometrium. The myometrium is up to 2.3 cm thick and is gary-purple with minimal trabeculation. There is a 1.0 x 1.0 x 1.0 cm gary-pink ill-defined myometrial nodule present. The serosa is gary-purple, smooth and glistening, with no distinct lesions. The ovary is serially sectioned to show gary cut surfaces. The cystic structure is filled with thin, clear fluid and has a thin, smooth and glistening lining with no distinct lesions identified. Senior Android Developer sections are submitted as follows: A1: Anterior cervix A2: Posterior cervix A3: Anterior endomyometrium with cavitation and myometrial nodule A4: Posterior endomyometrium A5: Ovary with cystic structure. /MK 08/13/2020 7:40 PM EDT [facility] Tissue UTERINE STRUCTURE / Unknown 08/11/2020 9:57 AM EDT 08/11/2020 1:12 PM EDT Beverly Hernandez DO PATHOLOGY ORDERABLES Fi nal Result Performing Organization Address [facility] Co de Phone Number [facility] [address] [place] [phone] [facility] [address] [place] [phone] * INTRAOP AIRWAY PLACEMENT (08/11/2020 8:21 AM EDT) Narrative [facility] - 08/11/2020 8:21 AM EDT Beverly Newman CRNA 08/11/2020 8:21 AM Intraop Airway Placement: Date/Time: 08/11/2020 8:04 AM Induction type: IV Mask size: Large adult Pre-Oxygenation: BMI guided pre-O2 and Ramping Mask ventilation: Not attempted Technique: Video laryngoscope Laryngoscope blade: Bradford Blade size: 3 Grade view: I Airway type: ETT- cuffed Topical Anesthetic/Lubricant: Lubricant jelly Intubation assist devices: Stylet 14fr Airway location: Oral Device size: 8mm Secured at: 21 cm Secured by: Tape Measured from: Lips Placement verified: Auscultation, End tidal CO2 and Symmetric chest wall motion Condition: Atraumatic and Unchanged Insertion attempts: 1 Title: DITCH TENDER us Maximino Lehman MD [place] ANESTHESIA Final Res ult Performing Organization Address City/[facility] Co de Phone Number [facility] [address] [place] [phone] * HUMAN CHORIONIC GONADOTROPIN QUANTITATIVE (08/05/2020 11:20 AM EDT) Only the most recent of2 resultswithin the time period is included. Hcg Quant 3 <5 mIU/mL 08/05/2020 11:41 AM EDT [facility] Blood VENOUS BLOOD / Unknown Venipuncture / Unknown 08/05/2020 11:20 AM EDT 08/05/2020 11:23 AM EDT Narrative [facility] - 08/05/2020 11:41 AM EDT Ingestion of rayshawn doses of biotin (>5 mg/day) taken within 8 hours of drawing blood sample can interfere with this immunoassay test. Female (non-): 0-4.9 mIU/mL Female (postmenopausal): 0-8.1 mIU/mL Indeterminate values for (e.g., 5-25 mIU/mL) may be confirmed with a repeat test in 48-72 hours. Values in should double every 2-3 days for the first six weeks. us Lesvia Savage NP CHEMISTRY ORDERABLES Final Result Performing Organization Address City/[facility] Co de Phone Number [facility] [address] [place] [address] * BB HISTORY CHECK (08/05/2020 11:05 AM EDT) Only the most recent of2 resultswithin the time period is included. BB HISTORY CHECK (1) Previous History OK 08/05/2020 12:00 PM EDT [facility] Blood VENOUS BLOOD / Unknown Venipuncture / Unknown 08/05/2020 11:05 AM EDT 08/05/2020 11:23 AM EDT us Lesvia Savage NP BLOOD BANK ORDERABLES Final Result Performing Organization Address City/State/[facility] Co de Phone Number [facility] [address] [place] [address] * SURGERY DATE (08/05/2020 11:05 AM EDT) Surgery Date (1) Complete 08/05/2020 12:01 PM EDT [facility] Blood VENOUS BLOOD / Unknown Venipuncture / Unknown 08/05/2020 11:05 AM EDT 08/05/2020 11:23 AM EDT us Lesvia Savage NP BLOOD BANK ORDERABLES Final Result Performing Organization Address [facility] Co de Phone Number [facility] [address] [place] [address] * ABORH (08/05/2020 11:05 AM EDT) Only the most recent of2 resultswithin the time period is included. Pathologist [facility] ABORH Int O POS 08/05/2020 12:35 PM EDT [facility] Blood VENOUS BLOOD / Unknown Venipuncture / Unknown 08/05/2020 11:05 AM EDT 08/05/2020 11:23 AM EDT Lesvia Savage NP BLOOD BANK ORDERABLES Final Result Performing Organization Address [facility] de Phone Number [facility] [address] [place] [address] * ANTIBODY SCREEN IGG (08/05/2020 11:05 AM EDT) Pathologist [facility] ABSC IgG Int Negative 08/05/2020 12:35 PM EDT [facility] Blood VENOUS BLOOD / Unknown Venipuncture / Unknown 08/05/2020 11:05 AM EDT 08/05/2020 11:23 AM EDT Lesvia Savage NP BLOOD BANK ORDERABLES Final Result Performing Organization Address [facility] Co de Phone Number [facility] [address] [place] [address] * MOLECULAR VAGINITIS PANEL (MVP) (07/23/2020 3:24 PM EDT) Pathologist [facility] Bacterial Vaginosis Not Detected Not Detected 07/23/2020 10:49 PM EDT [facility] Comment:Normal/Balanced vagi nal microbiome. Nakaseomyces glabrata (previously Joann glabrata) Not Detected Not Detected 07/23/2020 10:49 PM EDT [facility] Joann group Not Detected Not Detected 07/23/2020 10:49 PM EDT [facility] Comment:C. albicans, C. trop icalis, C. parapsilosis, and/or C. dubliniensis NOT detected. Joann krusei Not Detected Not Detected 07/23/2020 10:49 PM EDT [facility] Trichomonas vaginalis Not Detected Not Detected 07/23/2020 10:49 PM EDT [facility] Swab SPECIMEN FROM VAGINA / Unknown 07/23/2020 3:24 PM EDT 07/23/2020 3:24 PM EDT Narrative [facility] - 07/23/2020 10:49 PM EDT Test performed using the [employer] Vaginal Panel, a real-time polymerase chain (PCR) molecular nucleic acid amplification test. Beverly Hernandez DO MICROBIOLOGY - GENERAL ORDERABLES Final Result [facility], [facility] [address] [facility] , [place] [address] * CHLAMYDIA/GC BY TMA (06/25/2020 6:00 PM EST) Only the most recent of2 resultswithin the time period is included. Chlamydia trachomatis Not Detected Not Detected 06/26/2020 12:30 AM EST [facility] Neisseria gonorrhoeae Not Detected Not Detected 06/26/2020 12:30 AM EST [facility] Swab SPECIMEN FROM UTERINE CERVIX / Unknown 06/25/2020 6:00 PM EST 06/25/2020 6:05 PM EST Narrative [facility] - 06/26/2020 12:30 AM EST Testing methodology is gas well pumper mediated amplification (TMA) using the Aptima Combo 2 assay from [employer]. A negative result does not completely rule out a Chlamydia trachomatis or Neisseria gonorrhoeae infection due to potential inhibitors or levels present below the limit of detection by this assay. Results are dependent on proper collection and transport of specimen. This test is indicated for medical purposes only and should not be used for legal or forensic purposes. The performance characteristics of this assay were validated by the testing laboratory. This assay is FDA cleared to test the following specimens: clinician-collected endocervical, vaginal, male urethral swab specimens, rectal swabs, and throat/pharyngeal swabs; patient collected vaginal specimens within a clinic setting; Thin Prep Specimens in PreservCyt Solution; and first-stream, unpreserved male and female urine specimens. Detailed methodology is available upon request. us Parveen Syed MD MICROBIOLOGY - GENERAL OR DERABLES Final Result Performing Organization Address [facility] Co de Phone Number [facility] [address] [facility] , [place] [address] * TRICHOMONAS AG (06/25/2020 6:00 PM EST) Pathologist [facility] Trichomonas Ag Not Detected Not Detected 2020 6:40 PM EST [facility] Swab SPECIMEN FROM VAGINA / Unknown 06/25/2020 6:00 PM EST 06/25/2020 6:29 PM EST us Parveen Syed MD MICROBIOLOGY - GENERAL OR DERABLES Final Result Performing Organization Address [facility] de Phone Number [facility], [address] , [place] [address] * GRAM STAIN (STAIN ONLY) (06/25/2020 6:00 PM EST) Pathologist [facility] Stain Abundant epithelial cells 06/25/2020 6:41 PM EST [facility] Stain Few WBCs 06/25/2020 6:41 PM EST [facility] Stain Morphotypes consistent with normal vaginal microbiota. 06/25/2020 6:41 PM EST [facility] Swab SPECIMEN FROM VAGINA / Unknown 06/25/2020 6:00 PM EST 06/25/2020 6:05 PM EST us Parveen Syed MD MICROBIOLOGY - GENERAL OR DERABLES Final Result Performing Organization Address [facility] de Phone Number [facility], [facility] [address] [facility] , [address] [place] [phone] * EXTRA STARK URINE CX (06/25/2020 5:44 PM EST) Urine URINE SPECIMEN COLLECTION, CLEAN CATCH / Unknown 06/25/2020 5:44 PM EST 06/25/2020 5:47 PM EST us Parveen Syed MD MICROBIOLOGY - GENERAL OR DERABLES Final Result Performing Organization Address City/[facility]/ZIP Co de Phone Number [facility] [address] [place], [place] [phone] * LH/FSH (06/10/2020 2:01 PM EST) LH 24.00 mIU/mL 06/10/2020 7:58 PM EST [facility] Comment: Suggested Reference Ranges (mIU/mL) Females Follicular Phase 2.4 - 12.6 Ovulation Phase 14.0 - 95.6 Luteal Phase 1.0 - 11.4 Postmenopause 7.7 - 58.5 Males 1.7 - 8.6 FSH 25.90 mIU/mL 06/10/2020 7:58 PM EST [facility] Comment: Suggested Reference Range (mIU/mL) Females Follicular Phase 3.5 - 12.5 Ovulation Phase 4.7 - 21.5 Luteal Phase 1.7 - 7.7 Postmenopause 25.8 - 134.8 Males 1.5 - 12.4 Blood Venipuncture / Unknown 06/10/2020 2:01 PM EST 06/10/2020 2:01 PM EST Narrative [facility] - 06/10/2020 7:58 PM EST Ingestion of rayshawn doses of biotin (>5 mg/day) taken within 8 hours of drawing blood sample can interfere with this immunoassay test. us Manuel Moran MD IMMUNOLOGY ORDERABLES Final Resu lt [facility] [address] [facility], [place] [address] * US PELVIS AND TRANSVAGINAL NON OB COMPLETE (05/15/2020 10:19 PM EST) Only the most recent of2 resultswithin the time period is included. Anatomical Region Laterality Modality Pelvis Ultrasound Impressions 05/15/2020 10:19 PM EST 1. Previous right oophorectomy. 2. Uterine fibroids, the larger of which is 2.7 cm size. - Narrative 05/15/2020 10:19 PM EST US PELVIS AND TRANSVAGINAL NON OB COMPLETE 05/15/2020 CLINICAL HISTORY: N95.0-Postmenopausal [id number]. COMPARISON: None. PROCEDURE COMMENTS: Transabdominal and endovaginal sonographic evaluation of the pelvis with sales representative business courses images and tech notes for sent for review. FINDINGS: Uterus: 10.2 x 4.2 x 5.6 cm overall size. Uterine fibroids are present including an anterior fundal fibroid measuring 2.1 x 2.7 cm and a posterior fibroid measuring 1.6 x 1.9 cm. Endometrium: 4.8 mm thickness. RIGHT ovary: Surgically absent. LEFT ovary: 4.0 x 3.0 x 4.3 cm. 2 prominent follicles are noted, otherwise unremarkable appearing. Cul-de-sac: No abnormal fluid or mass. Doppler flow: Left ovary shows normal Doppler flow. Procedure Note Semaj Rey MD - 05/15/2020 US PELVIS AND TRANSVAGINAL NON OB COMPLETE 05/15/2020 CLINICAL HISTORY: N95.0-Postmenopausal [id number]. COMPARISON: None. PROCEDURE COMMENTS: Transabdominal and endovaginal sonographic evaluationof the pelvis with sales representative business courses images and tech notes for sent for review. FINDINGS: Uterus: 10.2 x 4.2 x 5.6 cm overall size. Uterine fibroids are present including an anterior fundal fibroid measuring 2.1 x 2.7 cm and aposterior fibroid measuring 1.6 x 1.9 cm. Endometrium: 4.8 mm thickness. RIGHT ovary: Surgically absent. LEFT ovary: 4.0 x 3.0 x 4.3 cm. 2 prominent follicles are noted,otherwise unremarkable appearing. Cul-de-sac: No abnormal fluid or mass. Doppler flow: Left ovary shows normal Doppler flow. IMPRESSION: 1. Previous right oophorectomy. 2. Uterine fibroids, the larger of which is 2.7 cm size. - Arminda Wilson APRN IMG US ORDERABLES Final Res ult * ESTRADIOL LEVEL (04/30/2020 10:10 AM EST) Estradiol Lvl 192 pg/mL 04/30/2020 4:39 PM EST [facility] Blood VENOUS BLOOD / Unknown Venipuncture / Unknown 04/30/2020 10:10 AM EST 04/30/2020 10:12 AM EST Narrative [facility] - 04/30/2020 4:39 PM EST Follicular phase 12.4 - 233 pg/mL Ovulation phase 41.0 - 398 pg/mL Luteal Phase 22.3 - 341 pg/mL Postmenopause 5 - 138 pg/mL Adult Males 11.3 - 43.2 pg/mL Due to risk of cross reactivity, Estradiol levels should not be monitored by immunoassay in patients being treated with Fulvestrant (Faslodex). Falsely increased results of Estradiol may occur. Ingestion of rayshawn doses of biotin (>5 mg/day) taken within 8 hours of drawing blood sample can interfere with this immunoassay test. Arminda Wilson APRN CHEMISTRY ORDERABLES Final Result [facility] [address] [place] [address] , [place] [address] * LICENSED MARRIAGE AND FAMILY THERAPIST CYTOLOGY REQUEST (PAP ONLY) (04/30/2020 9:55 AM EST) CASE REPORT Gynecologic Cytology Report Case: [id number] Authorizing Provider: Arminda Wilson APRN Collected: 04/30/202055 Ordering Location: [facility] Received: 04/30/2020 0955 First Screen: Shaun Hull CT Specimen: LIQUID-BASED PAP - CERVICAL/ENDOCERV ICAL, Cervix, Endocervical 05/04/2020 9:13 AM EST [facility] PAP FINAL DIAGNOSIS Negative for intraepithelial lesion or malignancy 05/04/2020 9:13 AM EST [facility] at 0913 EST MICROSCOPIC DESCRIPTION Microscopic examination is performed and the findings corroborate the diagnosis 05/04/2020 9:13 AM [facility] PAP SMEAR ADEQUACY Satisfactory for evaluation 05/04/2020 9:13 AM EST [facility] PAP ORGANISMS NOTED Abundant bacteria present. 05/04/2020 9:13 AM EST [facility] ENDOCERVICAL T-ZONE Transformation zone absent. 05/04/2020 9:13 AM [facility] EMBEDDED IMAGES 9:13 AM [facility] PAP DISCLAIMER The Pap Smear is a screening test that aids in the detection of cervical cancer and cancer precursors. Both false positive and false negative results can occur. The test should be used at regular intervals, and positive results should be confirmed before definitive therapy. Processed using the Thin[employer] Analyst Automated cytology screening device ([employer] Web Solution). 05/04/2020 9:13 AM [facility] Thin Prep ENDOCERVICAL STRUCTURE / Unknown 04/30/2020 9:55 AM EST 04/30/2020 9:55 AM EST [facility] CYTOLOGY ORDERABLES Final R esult Performing Organization Address City/[facility]/[place] [address] * POCT INFLUENZA A/B (06/12/2019 5:03 PM EST) Only the most recent of2 resultswithin the time period is included. Influenza A Ag Neg SEP OFFICE Influenza B Ag Neg SEP OFFICE Lot Number [id number] SEP OFFICE Expiration Date SEP OFFICE Flu Blue Control Line (positive internal control) Yes SEP OFFICE Clear Background (negative internal control) Yes Yes/No SEP OFFICE 06/12/2019 5:03 PM EST [facility] COAL SAMPLE TESTER POINT OF CARE TEST ORDERABL ES Final Result SEP OFFICE * XR RADIUS ULNA RIGHT AP AND LATERAL (03/18/2019 12:13 PM EST) Anatomical Region Laterality Modality Forearm Radiographic Flaco ging 03/18/2019 12:1 3 PM EST Impressions 03/18/2019 12:46 PM EST No acute bony abnormality of the forearm. This exam does not constitute a diagnostic evaluation of either the wrist or the elbow. If symptoms are centered over those areas, dedicated imaging suggested. - Narrative 03/18/2019 12:46 PM EST XR RADIUS ULNA RIGHT AP AND LATERAL, 03/18/2019 12:13 PM CLINICAL HISTORY: M79.601-Pain in right [id number] COMPARISON: None. PROCEDURE COMMENTS: Orthogonal views of the forearm. Minimum two views. FINDINGS: No fracture of the radial or ulnar shafts. No foreign body. No gross deformity at the elbow or wrist. Procedure Note Semaj Rey MD - 03/18/2019 XR RADIUS ULNA RIGHT AP AND LATERAL, 03/18/2019 12:13 PM CLINICAL HISTORY: M79.601-Pain in right [id number] COMPARISON: None. PROCEDURE COMMENTS: Orthogonal views of the forearm. Minimum two views. FINDINGS: No fracture of the radial or ulnar shafts. No foreign body. Nogross deformity at the elbow or wrist. IMPRESSION: No acute bony abnormality of the forearm. This exam does not constitute a diagnostic evaluation of either the wristor the elbow. If symptoms are centered over those areas, dedicated imagingsuggested. - Arminda Wilson APRN IMG DIAGNOSTIC IMAGING LAKESHIA BALDWIN Final Result * XR ELBOW RIGHT AP LATERAL AND OBLIQUES (03/18/2019 12:13 PM EST) Anatomical Region Laterality Modality Elbow Radiographic Flaco ging 03/18/2019 12:1 3 PM EST Impressions 03/18/2019 12:47 PM EST No acute bony abnormality of the elbow. - Narrative 03/18/2019 12:47 PM EST XR ELBOW RIGHT AP LATERAL AND OBLIQUES, 03/18/2019 12:13 PM CLINICAL HISTORY: M79.601-Pain in right [id number]-[id number] COMPARISON: None. PROCEDURE COMMENTS: Routine views per ordered protocol. FINDINGS: No visible fracture or malalignment. No fat pad displacement to suggest effusion. Ulnotrochlear degenerative changes are present. Procedure Note Semaj Rey MD - 03/18/2019 XR ELBOW RIGHT AP LATERAL AND OBLIQUES, 03/18/2019 12:13 PM CLINICAL HISTORY: M79.601-Pain in right [id number] COMPARISON: None. PROCEDURE COMMENTS: Routine views per ordered protocol. FINDINGS: No visible fracture or malalignment. No fat pad displacementto suggest effusion. Ulnotrochlear degenerative changes are present. IMPRESSION: No acute bony abnormality of the elbow. - Arminda Wilson APRN IMG DIAGNOSTIC IMAGING ORDE RABLES Final Result * (ABNORMAL) ANAEROBIC CULTURE (NO STAIN) (11/02/2018 7:43 AM EDT) Only the most recent of2 resultswithin the time period is included. Culture Positive Growth(A) 11/07/2018 10:20 AM EDT [facility] Culture Moderate growth of Finegoldia magna SUSCEPTIBI LITY RESULT 11/07/2018 10:20 AM EDT [facility] Comment:No further workup. Swab STRUCTURE OF LEFT ANKLE / Unknown 11/02/2018 7:43 AM EDT 11/02/2018 8:33 AM EDT Parveen Marsh MD MICROBIOLOGY - GENERAL OR DERABLES Final Result [facility] [address] [place] [address] , [place] [address] * INTRAOP AIRWAY PLACEMENT (11/02/2018 7:35 AM EDT) Narrative [facility] - 11/02/2018 7:35 AM EDT Jeffery Vitale CRNA 11/02/2018 7:36 AM Intraop Airway Placement: Date/Time: 11/02/2018 7:28 AM Induction type: IV Mask size: Large adult Pre-Oxygenation: Standard Mask ventilation: Easy mask ventilation Laryngoscope blade: Bradford Blade size: 3 Grade view: I Airway type: ETT- cuffed Topical Anesthetic/Lubricant: Lubricant jelly Intubation assist devices: Stylet 14fr Airway location: Oral Device size: 7.5mm Secured at: 21 cm Secured by: Tape Measured from: Lips Placement verified: Auscultation and End tidal CO2 Condition: Atraumatic Insertion attempts: 1 Attempt 1 by: otilia Title: SINA Procedure Note Jeffery Vitale CRNA - 11/02/2018 7:35 AM EDT Intraop Airway Placement: Date/Time: 11/02/2018 7:28 AM Induction type: IV Mask size: Large adult Pre-Oxygenation: Standard Mask ventilation: Easy mask ventilation Laryngoscope blade: Bradford Blade size: 3 Grade view: I Airway type: ETT- cuffed Topical Anesthetic/Lubricant: Lubricant jelly Intubation assist devices: Stylet 14fr Airway location: Oral Device size: 7.5mm Secured at: 21 cm Secured by: Tape Measured from: Lips Placement verified: Auscultation and End tidal CO2 Condition: Atraumatic Insertion attempts: 1 Attempt 1 by: otilia Title: SINA us Jj Tanner MD [place] [address] * [facility] LOWER EXTREMITY VENOUS LEFT (10/06/2018 1:15 PM EDT) Anatomical Region Laterality Modality Vascular, Thigh, Leg Vascular Im aging 10/06/2018 12:4 3 PM EDT Impressions 10/07/2018 9:45 AM EDT CONCLUSIONS No evidence of deep vein thrombosis identified in the left lower extremity where visualized as stated above. No evidence of superficial vein thrombosis identified in the left lower extremity as stated above. No evidence of thrombosis is noted in the contralateral right common femoral vein. Narrative Procedure Note Fidel Sears MD - 10/07/2018 IMPRESSION CONCLUSIONS No evidence of deep vein thrombosis identified in the left lowerextremity where visualized as stated above. No evidence of superficial vein thrombosis identified in the left lowerextremity as stated above. No evidence of thrombosis is noted in the contralateral right commonfemoral vein. us Speedy Pedroza MD IMG VASCULAR ORDERAB LES Final Result * INTRAOP AIRWAY PLACEMENT (09/28/2018 11:07 AM EDT) Narrative [facility] - 09/28/2018 11:07 AM EDT Babita Kennedy 09/28/2018 11:11 AM Intraop Airway Placement: Date/Time: 09/28/2018 10:47 AM Induction type: IV Mask size: Standard adult Pre-Oxygenation: Standard and Ramping Mask ventilation: Moderate mask ventilation Mask ventilation improved by: Chinlift Technique: Direct laryngoscope Laryngoscope blade: Steven Blade size: 3 Grade view: II Airway type: ETT- cuffed Intubation assist devices: Stylet 14fr Device size: 7.5mm Secured at: 22 cm Secured by: Tape Measured from: Lips Placement verified: Auscultation, End tidal CO2 and Symmetric chest wall motion Condition: Atraumatic and Unchanged Insertion attempts: 2 Title: DITCH TENDER Procedure Note Babita Kennedy - 09/28/2018 11:07 AM EDT Intraop Airway Placement: Date/Time: 09/28/2018 10:47 AM Induction type: IV Mask size: Standard adult Pre-Oxygenation: Standard and Ramping Mask ventilation: Moderate mask ventilation Mask ventilation improved by: Chinlift Technique: Direct laryngoscope Laryngoscope blade: Steven Blade size: 3 Grade view: II Airway type: ETT- cuffed Intubation assist devices: Stylet 14fr Device size: 7.5mm Secured at: 22 cm Secured by: Tape Measured from: Lips Placement verified: Auscultation, End tidal CO2 and Symmetric chestwall motion Condition: Atraumatic and Unchanged Insertion attempts: 2 Title: DITCH TENDER us Leonides You MD [place] ANESTHESIA Edited [facility] [address] [place] [address] * Peripheral Block by Anesthesia (09/28/2018 10:58 AM EDT) Narrative [facility] - 09/28/2018 10:58 AM EDT Leonides You MD 09/28/2018 11:00 AM Peripheral Block by Anesthesia Procedure Date/Time: 09/28/2018 10:38 AM Patient location during procedure: pre-op Reason for block: at surgeon's request and post-op pain management Staff and pre procedure checks Anesthesiologist: Leonides You MD Performed: anesthesiologist Preanesthetic Checklist: Allergies confirmed, Block plan confirmed, Necessary block equipment present, Supplemental O2 applied, if needed, Anticoagulant confirmed, Block site marked, Patient identified- 2 criteria, Surgical procedure consent verified, Aseptic technique used, Drug/solution labeled, Resuscitaion equipment available, SERENITY recommended monitors applied, IV access functioning and Sedation given, if needed Immediate perianesthetic assessment completed: Yes Patient position: Prep: Chloraprep Monitoring: BP, EKG, O2 Sat and Mental status assessed Peripheral Block Block type: Sciatic Nerve Block and Specific Nerve Block, Popliteal region and Saphenous Nerve Laterality: Left Injection technique: single-shot Medication: 30 (25mL popliteal; 5mL saphenous)ml, Bupivacaine 0.5% Needle Needle type: Stimuplex Needle gauge: 21 G Needle length: 4 in (100mm) Nerve localization: ultrasound guidance Ultrasound probe: linear Ultrasound needle approach: in-plane Assessment Block success: a full evaluation pending Events: Uneventful Heart rate change: no Blood aspirated: no Paresthesia pain: absent Resistance on injection: normal Intermittent incremental injection LA at 5ml LA surrounding nerve by ultrasonographc visualization Procedure Note Leonides You MD - 09/28/2018 10:58 AM EDT Peripheral Block by Anesthesia Procedure Date/Time: 09/28/2018 10:38 AM Patient location during procedure: pre-op Reason for block: at surgeon's request and post-op pain management Staff and pre procedure checks Anesthesiologist: Leonides You MD Performed: anesthesiologist Preanesthetic Checklist: Allergies confirmed, Block plan confirmed,Necessary block equipment present, Supplemental O2 applied, if needed,Anticoagulant confirmed, Block site marked, Patient identified- 2criteria, Surgical procedure consent verified, Aseptic technique used,Drug/solution labeled, Resuscitaion equipment available, SERENITY recommendedmonitors applied, IV access functioning and Sedation given, if needed Immediate perianesthetic assessment completed: Yes Patient position: Prep: Chloraprep Monitoring: BP, EKG, O2 Sat and Mental status assessed Peripheral Block Block type: Sciatic Nerve Block and Specific Nerve Block, Popliteal regionand Saphenous Nerve Laterality: Left Injection technique: single-shot Medication: 30 (25mL popliteal; 5mL saphenous)ml, Bupivacaine 0.5% Needle Needle type: Stimuplex Needle gauge: 21 G Needle length: 4 in (100mm) Nerve localization: ultrasound guidance Ultrasound probe: linear Ultrasound needle approach: in-plane Assessment Block success: a full evaluation pending Events: Uneventful Heart rate change: no Blood aspirated: no Paresthesia pain: absent Resistance on injection: normal Intermittent incremental injection LA at 5ml LA surrounding nerve by ultrasonographc visualization us Leonides You MD ANESTHESIA ORDERABLES Fin al Result [facility] [address] [id number] * ESTROGENS, FRACTIONATED BY TMS -REF LAB (04/30/2018 12:00 PM EST) [facility] Signature Estradiol 6.0 pg/mL 05/03/2018 8:08 AM EST [facility] Comment: REFERENCE INTERVAL: Estradiol by TMS Access complete set of age- and/or gender-specific reference intervals for this test in the [employer] Test Directory ([employer]). Test developed and characteristics determined by [facility]. See Compliance Statement B: [employer] Estrone by 8.3 pg/mL 05/03/2018 8:08 AM EST [facility] Comment: REFERENCE INTERVAL: Estrone by TMS Access complete set of age- and/or gender-specific reference intervals for this test in the [employer] Test Directory ([employer]). Test developed and characteristics determined by [facility]. See Compliance Statement B: [employer] Estrogens Total 14.3 pg/mL 9 8:08 AM EST [facility] Comment: Females: (pg/mL) Estrone Estradiol Total Estrogens Early follicular <150.0 30.0-100.0 30.0-250.0 Late follicular 100.0-250.0 100.0-400.0 200.0-650.0 Luteal <200.0 50.0-150.0 50.0-350.0 Post-menopausal 3.0-32.0 2.0-21.0 5.0-52.0 REFERENCE INTERVAL: Estrogens Total Calculation Access complete set of age- and/or gender-specific reference intervals for this test in the [facility] Test Directory ([employer]). Performed by [facility], [address] [place] [address] [email or web address], Dawson Ham MD, Lab. Director Blood VENOUS BLOOD / Unknown Venipuncture / Unknown 04/30/2018 12:00 PM EST 04/30/2018 12:00 PM EST us Abdulkadir Montoya MD CHEMISTRY ORDERABLES Final Res ult [employer] [address] [place] [address] * SCANNED RADIOLOGY REPORT (06/30/2017 12:54 PM EST) Only the most recent of5 resultswithin the time period is included. Anatomical Region Laterality Modality Other 06/30/2017 12:5 4 PM EST us Unknown Unknown IMG DIAGNOSTIC IMAGING ORDERABLE S Final Result * NM MYOCARDIAL PERFUSION SPECT STRESS AND REST (06/30/2017 11:08 AM EST) Only the most recent of2 resultswithin the time period is included. Anatomical Region Laterality Modality Nuclear Medicine 06/30/2017 8:57 AM EST Impressions 06/30/2017 4:27 PM EST IMPRESSIONS No definite reversible perfusion defect. Normal LV wall motion and function with EF approximately 60-65%. Narrative Procedure Note Juan J Spence MD - 06/30/2017 IMPRESSION IMPRESSIONS No definite reversible perfusion defect. Normal LV wall motion and function with EF approximately 60-65%. us Polly Payton MD IMG NM CARDIAC ORDERABLES Yessenia l Result * ST STRESS TEST EXERCISE (06/30/2017 10:55 AM EST) Only the most recent of2 resultswithin the time period is included. Anatomical Region Laterality Modality Cardiac Stress T esting 06/30/2017 10:0 4 AM EST Impressions 06/30/2017 2:49 PM EST Exercise ECG Report [facility] Interpretive Statements Type of Test: Exercise Reason for Exam: chest pain Resting HR: 100 Peak HR: 168 Resting B/P 130/90 Peak B/P 167/81 1. METS achieved 5.9 2. WALKED _5:26__ MINUTES ON FULL RADHA PROTOCOL 3. Target HR achieved _x__ Yes ___ NO____HEART RATE 4. Termination of test due to fatigue 5. Symptoms: none 6. Imaging pending ____no __x__ yes Nuclear ___ Echo ____ 7. Resting EK. Arrhythmias: 9. Conclusion: Normal EKG response Electronically Signed On 06-30-2017 14:49:59 EST by Juan J Spence MD Narrative Procedure Note Juan J Spence MD - 06/30/2017 IMPRESSION Exercise ECG Report [facility] Interpretive Statements Type of Test: Exercise Reason for Exam: chest pain Resting HR: 100 Peak HR: 168 Resting B/P 130/90 Peak B/P 167/81 1. METS achieved 5.9 2. WALKED _5:26__ MINUTES ON FULL RADHA PROTOCOL 3. Target HR achieved _x__ Yes ___ NO____HEART RATE 4. Termination of test due to fatigue 5. Symptoms: none 6. Imaging pending ____no __x__ yes Nuclear ___ Echo ____ 7. Resting EK. Arrhythmias: 9. Conclusion: Normal EKG response Electronically Signed On 06-30-2017 14:49:59 EST by Juan J Spence MD Polly Payton MD IMG STRESS ORDERABLES Final Re sult * TROPONIN-T (06/30/2017 2:20 AM EST) Only the most recent of6 resultswithin the time period is included. Troponin-T <0.01 <0.01 ng/mL 06/30/2017 2:41 AM EST [facility] Blood VENOUS BLOOD / Unknown Venipuncture / Unknown 06/30/2017 2:20 AM EST 06/30/2017 2:21 AM EST Narrative [facility] - 06/30/2017 2:41 AM EST Values > or = 0.01 ng/mL have been shown to have prognostic value. Abdiel Uribe MD CHEMISTRY ORDERABLES Final Result Performing Organization Address City/[facility]/ZIP Co de Phone Number [facility] [address] [place] [address] * DIFFERENTIAL (06/06/2016 4:01 PM EST) Only the most recent of7 resultswithin the time period is included. Neut Percent 55.2 % [facility] Lymph Percent 30.6 % [facility] Converse Percent 10.1 % [facility] Eos Percent 3.7 % [facility] Baso Percent 0.4 % [facility] Neut# 4.0 1.8 - 7.7 x10(3)/mcL [facility] Lymph# 2.2 0.6 - 4.8 x10(3)/[facility] Converse# 0.7 0.0 - 1.3 x10(3)/[facility] Eos# 0.3 0.0 - 0.5 x10(3)/[facility] Baso# 0.0 0.0 - 0.2 x10(3)/[facility] Blood specimen (specimen) 06/06/2016 4:01 PM EST 06/06/2016 9:09 PM EST Abdulkadir Montoya MD HEMATOLOGY ORDERABLES Final Re sult Performing Organization Address City/[facility]/ZIP Co de Phone Number [facility] [address] [place] [address] * T3 FREE (06/06/2016 4:01 PM EST) Only the most recent of3 resultswithin the time period is included. T3 Free 2.67 2.00 - 4.40 pg/mL [facility] Blood specimen (specimen) UPPER LIMB STRUCTURE / Unknown 06/06/2016 4:01 PM EST 06/06/2016 9:09 PM EST us Abdulkadir Montoya MD CHEMISTRY ORDERABLES Final Res ult Performing Organization Address [facility] Co de Phone Number [facility] [address] [place] [address] * VANCOMYCIN LEVEL TROUGH (03/30/2016 9:32 AM EST) Vanco Tr 14.3 10.0 - 20.0 mcg/mL [facility] Comment: Minimum serum concentration for infection control is 10 mcg/mL; a target therapeutic range of 15-20 mcg/mL is recommended for significant infections such as S. aureus. Toxicity does not correlate well with serum concentrations. Supratherapeutic levels are considered to be > 20 mcg/mL. Blood specimen (specimen) UPPER LIMB STRUCTURE / Unknown 03/30/2016 9:32 AM EST 03/30/2016 9:40 AM EST us Ramesh Garcia MD CHEMISTRY ORDERABLES Final Re sult Performing Organization Address [facility] [place] [address] * BLOOD CULTURE (03/27/2016 1:24 PM EST) Only the most recent of2 resultswithin the time period is included. Final No growth at 5 days. [facility] Blood specimen (specimen) 03/27/2016 1:24 PM EST 03/27/2016 8:31 PM EST Narrative [facility] - 04/02/2016 11:01 AM EST Draw Type->Peripheral Samantha Lopez MD MICROBIOLOGY - GENERAL ORDERABL ES Final Result Performing Organization Address [facility] [place] [address] * MRI LUMBAR SPINE W WO CONTRAST (03/27/2016 12:37 PM EST) Anatomical Region Laterality Modality L-spine Magnetic Resonan ce 03/27/2016 12:3 7 PM EST Impressions 03/27/2016 12:53 PM EST 1. Large subcutaneous fluid collection is present but does not extend to the epidural space or directly into the postsurgical bed. 2. Interval removal of large paracentral disc protrusion with postsurgical changes in the paracentral and foraminal region. 3. No epidural abscess identified. Narrative 03/27/2016 12:53 PM EST MRI LUMBAR SPINE W WO CONTRAST 03/27/2016 HISTORY: Status post lumbar laminectomy and discectomy on March 11, now with fever and drainage from incision. COMPARISON: MRI lumbar spine November 27, 2015. MRI obtained with images before and after 20 cc MultiHance contrast material. In the subcutaneous tissues of the back is a large fluid collection measuring 15 cm craniocaudal x 8.3 cm transverse x 7.1 cm AP. This has slight rim enhancement. No fluid collections extend to the region of the epidural space. Postsurgical changes along the left paraspinal musculature are present. L5 laminotomy changes noted. Enhancement in the surgical tract is noted in the large disc protrusion that was present at the L5-S1 has been removed. Remainder of lumbar spine is stable from prior study. Procedure Note Semaj Rey MD - 03/27/2016 MRI LUMBAR SPINE W WO CONTRAST 03/27/2016 HISTORY: Status post lumbar laminectomy and discectomy on March 11,now with fever and drainage from incision. COMPARISON: MRI lumbar spine November 27, 2015. MRI obtained with images before and after 20 cc MultiHance contrastmaterial. In the subcutaneous tissues of the back is a large fluid collectionmeasuring 15 cm craniocaudal x 8.3 cm transverse x 7.1 cm AP. This has slight rim enhancement. No fluid collections extend to the region of the epidural space.Postsurgical changes along the left paraspinal musculature are present. L5 laminotomychanges noted. Enhancement in the surgical tract is noted in the large discprotrusion that was present at the L5-S1 has been removed. Remainder of lumbar spine is stable from prior study. IMPRESSION: 1. Large subcutaneous fluid collection is present but does not extend tothe epidural space or directly into the postsurgical bed. 2. Interval removal of large paracentral disc protrusion withpostsurgical changes in the paracentral and foraminal region. 3. No epidural abscess identified. us Samantha Lopez MD IMG MRI ORDERABLES Final Result * SMEAR REVIEW (03/27/2016 9:30 AM EST) RBC Morph Normal [facility] Blood specimen (specimen) 03/27/2016 9:30 AM EST 03/27/2016 9:40 AM EST us Samantha Lopez MD HEMATOLOGY ORDERABLES Final Res ult Performing Organization Address [facility] Phone Number [address] [address] * LACTIC ACID (03/27/2016 9:30 AM EST) Lactic Acid 1.2 0.5 - 2.2 mmol/L [facility] Blood specimen (specimen) UPPER LIMB STRUCTURE / Unknown 03/27/2016 9:30 AM EST 03/27/2016 9:40 AM EST us Samantha Lopez MD CHEMISTRY ORDERABLES Final Resu lt Performing Organization Address [facility] Phone Number [address] [address] * XR LUMBAR SPINE SINGLE VW (03/11/2016 11:16 AM EST) Anatomical Region Laterality Modality L-spine Radiographic Flaco ging 03/11/2016 11:1 6 AM EST Impressions 03/11/2016 11:25 AM EST Intraoperative lateral fluoroscopic spot images, performed for the purposes of surgical counting. Narrative 03/11/2016 11:25 AM EST 4 intraoperative lateral fluoroscopic spot images of the lumbar spine dated 03/11/2016 COMPARISON: MRI from 11/27/2015, radiographs from 10/29/2015 HISTORY: Intraoperative exam, L5-S1 disc herniation on MRI FINDINGS: Prior radiographs demonstrated 5 lumbar vertebral bodies. The same counting scheme is used as that employed on prior reports. Limited intraoperative lateral fluoroscopic spot images were performed without a radiologist in attendance. On the final image, surgical instruments are identified posteriorly, centered at the L5-S1 level. This final image was labeled per request. Procedure Note Adrián Amado MD - 03/11/2016 4 intraoperative lateral fluoroscopic spot images of the lumbar spinedated 03/11/2016 COMPARISON: MRI from 11/27/2015, radiographs from 10/29/2015 HISTORY: Intraoperative exam, L5-S1 disc herniation on MRI FINDINGS: Prior radiographs demonstrated 5 lumbar vertebral bodies. The samecounting scheme is used as that employed on prior reports. Limited intraoperativelateral fluoroscopic spot images were performed without a radiologist inattendance. On the final image, surgical instruments are identified posteriorly, centeredat the L5-S1 level. This final image was labeled per request. IMPRESSION: Intraoperative lateral fluoroscopic spot images, performed for thepurposes of surgical counting. us Ramesh Garcia MD IMG DIAGNOSTIC IMAGING ORDERA BLES Final Result * MRI CERVICAL SPINE WO CONTRAST (03/01/2016 2:27 PM EST) Anatomical Region Laterality Modality C-spine Magnetic Resonan ce 03/01/2016 2:27 PM EST Impressions 03/01/2016 3:41 PM EST Very small LEFT paracentral disc protrusion at C3-C4 minimally compressing thecal sac. No cord or root compression. No neural foraminal narrowing. Narrative 03/01/2016 3:41 PM EST MRI CERVICAL SPINE WO CONTRAST 03/01/2016 2:27 PM History: 40 years .Female. M51.26-Other intervertebral disc displacement, lumbar ftvlvq-AQI-59-CM M54.1-Yewhkbciqrr-FSF-10-CM. Technical: Axial, sagittal T1 and T2 imaging. Findings: 1. Vertebral body height and signal preserved. 2. Disc height, signal preserved. 3. No intrinsic cervical cord abnormality. No Chiari malformation. 4. C2-C3: Normal disc margin and canal. 5. C3-C4: Very shallow LEFT paracentral protrusion. No cord or root compression. X line C4-C5, C5-C6, C6-C7, C7-T1: Normal disc margin and canal. Procedure Note Rob Corona MD - 03/01/2016 MRI CERVICAL SPINE WO CONTRAST 03/01/2016 2:27 PM History: 40 years .Female. M51.26-Other intervertebral discdisplacement, lumbar varkzw-QXV-38-CM M54.9-Ujkvmlafyds-PNR-10-CM. Technical: Axial, sagittal T1 and T2 imaging. Findings: 1. Vertebral body height and signal preserved. 2. Disc height, signal preserved. 3. No intrinsic cervical cord abnormality. No Chiari malformation. 4. C2-C3: Normal disc margin and canal. 5. C3-C4: Very shallow LEFT paracentral protrusion. No cord or root compression. X line C4-C5, C5-C6, C6-C7, C7-T1: Normal disc margin andcanal. IMPRESSION: Very small LEFT paracentral disc protrusion at C3-C4 minimally compressing thecal sac. No cord or root compression. No neural foraminal narrowing. Ramesh Garcia MD IMG MRI ORDERABLES Final Resu lt * (ABNORMAL) POCT GLUCOSE (12/29/2015 4:42 PM EDT) [facility] Signature Glucose 114 60 - 200 MG/DL SEP OFFICE Lot Number SEP OFFICE Expiration Date SEP OFFICE SeriAl # SEP OFFICE Meter SEP OFFICE 12/29/2015 4:42 PM EDT Antonella Winston PA-C POINT OF CARE TEST ORDERABLES Final Result SEP OFFICE * MRI LUMBAR SPINE WO CONTRAST (11/27/2015 8:50 AM EDT) Only the most recent of2 resultswithin the time period is included. Anatomical Region Laterality Modality L-spine Magnetic Resonan ce 11/27/2015 8:50 AM EDT Impressions 11/27/2015 9:38 AM EDT IMPRESSION: The main finding is a large acute posterior disc herniation at the L5/S1 level which is causing severe left side and moderate to severe right-sided lateral recess stenosis as well as mild central canal stenosis. This herniation has developed in the interval from the earlier examination of 03 April 2014. Code jot today Narrative 11/27/2015 9:38 AM EDT MRI LUMBAR SPINE WO CONTRAST 11/27/2015 8:50 AM History: 40 years .Female. R20.2-Paresthesia of tgxe-NPI-41-CM M54.40-Lumbago with sciatica, unspecified aavc-GUT-37-CM. Low back pain. Bilateral leg pain. Numbness left leg. TECHNIQUE: Multiplanar, multiecho MR imaging of the lumbosacral spine.No contrast given. COMPARISON:03 April 2014 from about 21 months ago. FINDINGS: Conus position and signal: Normal. Marrow signal: No concerning marrow replacement. Alignment: Normal. L5/S1: Interval development of a large posterior central and left paracentral disc herniation measures 13 x 14 x 7 mm. This results in severe left lateral recess stenosis with moderate to severe right lateral recess stenosis. Central canal is narrowed but does remain patent. The bilateral foramina are patent. The other lumbar discs are essentially normal without any other neural impingement. There is multilevel facet arthropathy, most pronounced L3/L4, L4/L5, L5/S1. No inflammatory features. Incidentally noted is advanced right sacroiliac osteoarthritis. Procedure Note Aracely Yu MD - 11/27/2015 MRI LUMBAR SPINE WO CONTRAST 11/27/2015 8:50 AM History: 40 years .Female. R20.2-Paresthesia of otpu-VTN-00-CM M54.40-Lumbago with sciatica, unspecified snhn-XDA-59-CM. Low back pain. Bilateral leg pain. Numbness left leg. TECHNIQUE: Multiplanar, multiecho MR imaging of the lumbosacralspine.No contrast given. COMPARISON:03 April 2014 from about 21 months ago. FINDINGS: Conus position and signal: Normal. Marrow signal: No concerning marrow replacement. Alignment: Normal. L5/S1: Interval development of a large posterior central and leftparacentral disc herniation measures 13 x 14 x 7 mm. This results in severe leftlateral recess stenosis with moderate to severe right lateral recess stenosis.Central canal is narrowed but does remain patent. The bilateral foramina arepatent. The other lumbar discs are essentially normal without any other neural impingement. There is multilevel facet arthropathy, most pronounced L3/L4, L4/L5,L5/S1. No inflammatory features. Incidentally noted is advanced right sacroiliac osteoarthritis. IMPRESSION: The main finding is a large acute posterior disc herniation at the L5/C0gpaai which is causing severe left side and moderate to severe right-sidedlateral recess stenosis as well as mild central canal stenosis. This herniationhas developed in the interval from the earlier examination of March2014. Code jot today us Antonella Winston PA-C IMG MRI ORDERABLES Final Result * XR HIP LEFT AP AND LATERAL (10/29/2015 3:29 PM EDT) Anatomical Region Laterality Modality Hip Radiographic Flaco ging 10/29/2015 3:29 PM EDT Impressions 10/29/2015 4:00 PM EDT IMPRESSION: No significant osseous, joint or soft tissue abnormality is seen. Narrative 10/29/2015 4:00 PM EDT XR HIP LEFT AP AND LATERAL: 10/29/2015 3:29 PM HISTORY: W19.XXXD-Unspecified fall, subsequent rabmduxku-SMW-53-CM M25.552-Pain in left ycl-JZY-80-CM Procedure Note Aracely Khoury MD - 10/29/2015 XR HIP LEFT AP AND LATERAL: 10/29/2015 3:29 PM HISTORY: W19.XXXD-Unspecified fall, subsequent rxkjilfbd-MEV-98-CM M25.552-Pain in left trd-UVU-40-CM IMPRESSION: No significant osseous, joint or soft tissue abnormality isseen. Antonella Winston PA-C [facility] DIAGNOSTIC FLACO GING ORDERABLES Final Result * XR LUMBAR SPINE AP LATERAL AND OBLIQUES (10/29/2015 3:29 PM EDT) Anatomical Region Laterality Modality L-spine Radiographic Flaco ging 10/29/2015 3:29 PM EDT Impressions 10/29/2015 4:16 PM EDT IMPRESSION: No acute or active findings. Mild narrowing of L5-S1 disc. Narrative 10/29/2015 4:16 PM EDT XR LUMBAR SPINE AP LATERAL AND OBLIQUES 10/29/2015 3:29 PM HISTORY: W19.XXXD-Unspecified fall, subsequent gguyitxtx-VQA-29-CM M54.42-Lumbago with sciatica, left gtsf-ENV-13-CM Alignment is normal. No fracture subluxation or pars defect identified. There is mild narrowing of L5-S1 disc unchanged from 03/06/2014. Procedure Note Glendy Kim MD - 10/29/2015 XR LUMBAR SPINE AP LATERAL AND OBLIQUES 10/29/2015 3:29 PM HISTORY: W19.XXXD-Unspecified fall, subsequent vnergnevd-IVW-59-CM M54.42-Lumbago with sciatica, left enqp-BNA-02-CM Alignment is normal. No fracture subluxation or pars defect identified.There is mild narrowing of L5-S1 disc unchanged from 03/06/2014. IMPRESSION: No acute or active findings. Mild narrowing of L5-S1 disc. Antonella Winston PA-C IMG DIAGNOSTIC FLACO GING ORDERABLES Final Result * POCT URINALYSIS DIPSTICK (08/21/2015 11:10 AM EDT) Only the most recent of2 resultswithin the time period is included. 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 Grav, UA 1.015 1.001 - 1.035 g/dl SEP OFFICE Blood, UA 3+ Pos/Neg SEP OFFICE pH, UA 6.0 5.0 - 8 SEP OFFICE Protein, UA NEG Pos/Neg SEP OFFICE Urobilinogen, UA 0.2 0.2 - 1.0 mg/dL SEP OFFICE Leukocytes, UA NEG Pos/Neg SEP OFFICE Nitrite, UA NEG Pos/Neg SEP OFFICE UA Appear POC NA SEP OFFICE Lot Number [id number] SEP OFFICE Expiration Date 12/2016 SEP OFFICE SeriAl # NA SEP OFFICE Urine specimen (specimen) 08/21/2015 11:10 AM EDT Manuel Moran MD POINT OF CARE TEST ORDERABLES Fi nal Result SEP OFFICE * PATHOLOGY TISSUE REPORT (07/29/2015 2:33 PM EDT) Only the most recent of2 resultswithin the time period is included. Surgical Pathology Report PATIENT NAME:GISELA PEREZ Surgical Pathology Report Accession Number Collected Date/Time Received Date/Time [id number] 07/29/15 14:33 EDT 07/29/15 22:11 EDT Diagnosis 1) Endometrial curettings: - Proliferative phase endometrium. - Incidental fragments of unremarkable endocervical mucosa. - Negative for malignancy. 2) Bilateral fallopian tubes and right ovary: - Mature cystic teratoma of the ovary, 2.8 cm. - Fallopian tubes with paratubal cysts and scant serosal adhesions. - Negative for malignancy. Seda Gordon (Electronically signed by) Verified: 08/03/2015 [facility] Lab Clinical Information Pelvic pain; ovarian cyst Gross Description Part 1) Received in formalin labeled with the patients name and endometrial curettings is a 2.0 x 12.5 x 0.5 cm aggregate of gary-red soft tissue fragments, mucous, and blood. Entirely submitted in one cassette./ BC Part 2) Received in formalin labeled with the patient's name and bilateral fallopian tubes and right ovary are bilateral fimbriated fallopian tubes, measuring 5.0 cm in length x 0.6 cm in diameter each. One tube has an attached 5.0 x 3.5 x 2.5 cm ovary. The fallopian tubes have scant serosal adhesions, a few semitranslucent paratubal cysts up to 0.7 cm, and a soft gary cut surface with a patent lumen. The ovarian capsular surface is gary- stark to yellow with scant membranous adhesions. The ovary is sectioned to reveal a 2.8 cm in greatest dimension smooth-lined cyst containing a soft yellow sebaceous like substance. The remaining cut surface of the ovary shows gary soft tissue and a few additional smooth lined fluid filled cysts up to 1.1 cm in diameter. Senior Android Developer sections are submitted as follows: 2A-2B: bilateral fallopian tubes 2C-2E: ovary / BC DRB/DH Microscopic Description Microscopic examination is performed and the findings corroborate the diagnosis. [facility] 07/29/2015 2:33 PM EDT us Manuel Moran MD PATHOLOGY ORDERABLES Final Resul t [facility] [address] [place] [address] * CT ABD PEL ED FAST W CONTRAST (07/27/2015 5:10 PM EDT) Anatomical Region Laterality Modality Abdomen, Pelvis Computed Tomogra phy 07/27/2015 5:10 PM EDT Impressions 07/27/2015 5:25 PM EDT IMPRESSION: 5.1 cm possibly complex cystic lesion presumably from the right ovary. Possible vaginal prolapse. Previous appendectomy. Previous cholecystectomy. Narrative 07/27/2015 5:25 PM EDT Procedure: CT abdomen and pelvis with contrast including reformats, 07/27/2015. INDICATION: Pain and nausea. Uterine prolapse. FINDINGS: CT abdomen and pelvis is performed with 100 cc Isovue-370. 2-D sagittal and coronal reformats are obtained and reviewed. No prior. ABDOMEN: The visualized lung bases are unremarkable.. Previous cholecystectomy. The liver, spleen, pancreas, kidneys, adrenals, bowel and skeleton are negative for acute findings. Pelvis: There are no distal ureteral stones or obstruction. Previous appendectomy. No evidence of diverticulitis or other acute inflammatory process. Complex cystic lesion in the right adnexa measures 5.1 x 3.2 cm and may be in the right ovary. The uterus is identified within the pelvis. However, the vagina may be slightly prolapsed. Procedure Note Emily Spencer MD - 07/27/2015 Procedure: CT abdomen and pelvis with contrast including reformats,07/27/2015. INDICATION: Pain and nausea. Uterine prolapse. FINDINGS: CT abdomen and pelvis is performed with 100 cc Isovue-370. 2-D sagittal and coronal reformats are obtained and reviewed. No prior. ABDOMEN: The visualized lung bases are unremarkable.. Previouscholecystectomy. The liver, spleen, pancreas, kidneys, adrenals, bowel and skeleton arenegative for acute findings. Pelvis: There are no distal ureteral stones or obstruction. Previous appendectomy. No evidence of diverticulitis or other acute inflammatoryprocess. Complex cystic lesion in the right adnexa measures 5.1 x 3.2 cm and may bein the right ovary. The uterus is identified within the pelvis. However, thevagina may be slightly prolapsed. IMPRESSION: 5.1 cm possibly complex cystic lesion presumably from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 shoulder three views 03/05/2005. HISTORY- Injury. No fracture or dislocation is seen. Prototype Engineer Managerjoanne Fagan- COY TOTH MD Released Date Time- 03/06/05 0852 Procedure Note Coy Toth - 06/30/2009 RM 3 Right shoulder three views 03/05/2005. HISTORY- Injury. No fracture or dislocation is seen. Prototype Engineer Managerjoanne TOTH MD Released Date Time- 03/06/05 0852 Shantal Hinton MD [facility] [employer] [facility] HISTORICA L Final Result * MM DIAGNOSTIC BILATERAL (10/29/2004 12:00 AM EDT) Anatomical Region Laterality Modality Other 10/29/2004 10/29/2004 Narrative 10/29/2004 12:[address] [facility] Reason: [place] Dict.Staff: ARACELY HANKINS Verified By: ARACELY HANKINS Meng: 11/01/04 12:53 pm Exams: COCO-DIAGNOSTIC BILAT DIAGNOSTIC MAMMOGRAM LEFT BREAST, 11-01-04 HISTORY: 29 YEAR OLD FEMALE WITH DIFFUSE RIGHT BREAST PAIN. NO PALPABLE ABNORMALITY NO PRIOR STUDIES 1. Breast density is mild. No dominant mass or suspicious calcification identified. No focal areas of asymmetry. IMPRESSION: NO SUSPICIOUS FINDINGS. ROUTINE AGE APPROPRIATE FOLLOW UP SCREENING MAMMOGRAPHY RECOMMENDED. JLS/pp/Category 1-NEGATIVE BECAUSE MAMMOGRAPHY HAS A 15% FALSE NEGATIVE RATE, MANAGEMENT OF A PALPABLE ABNORMALITY MUST BE BASED ON CLINICAL GROUNDS. end of result Procedure Note Unknown, U - 08/06/[address] [facility] Reason: [place] Dict.Staff: ARACELY HANKINS Verified By: ARACELY HANKINS Meng: 11/01/04 12:53 pm Exams: COCO-DIAGNOSTIC BILAT DIAGNOSTIC MAMMOGRAM LEFT BREAST, 11-01-04 HISTORY: 29 YEAR OLD FEMALE WITH DIFFUSE RIGHT BREAST PAIN. NO PALPABLE ABNORMALITY NO PRIOR STUDIES 1. Breast density is mild. No dominant mass or suspicious calcification identified. No focal areas of asymmetry. IMPRESSION: NO SUSPICIOUS FINDINGS. ROUTINE AGE APPROPRIATE FOLLOW UP SCREENING MAMMOGRAPHY RECOMMENDED. JLS/pp/Category 1-NEGATIVE BECAUSE MAMMOGRAPHY HAS A 15% FALSE NEGATIVE RATE, MANAGEMENT OF A PALPABLE ABNORMALITY MUST BE BASED ON CLINICAL GROUNDS. end of result us U Unknown [facility] RAD HISTORICAL Final Result Visit Diagnoses Diagnosis Start Date Asthma with acute exacerbation Unspecified asthma, with exacerbation 01/14/2010 Wrist sprain Sprain of wrist, unspecified site 10/12/2010 Asthma Unspecified asthma 03/23/2011 Bronchitis Bronchitis, not specified as acute or chronic 03/23/2011 Infected sebaceous cyst of skin Sebaceous cyst 04/25/2011 MRSA infection Methicillin resistant Staphylococcus aureus in conditions classified elsewhere and of unspecified site 04/27/2011 MRSA infection Methicillin resistant Staphylococcus aureus in conditions classified elsewhere and of unspecified site 04/28/2011 Dressing change/suture removal Encounter for removal of sutures 04/29/2011 Asthma Unspecified asthma 05/23/2011 Dysmenorrhea 05/23/2011 Acute sinusitis Acute sinusitis, unspecified 05/23/2011 Hypothyroid Unspecified hypothyroidism 07/28/2011 Hypothyroid Unspecified hypothyroidism 07/28/2011 Acute gastroenteritis Other and unspecified noninfectious gastroenteritis and colitis 07/28/2011 Thyroid disease Unspecified disorder of thyroid 08/04/2011 URI (upper respiratory infection) Acute upper respiratory infections of unspecified site 03/02/2012 Asthma Unspecified asthma 03/02/2012 Hypothyroidism Unspecified hypothyroidism 03/02/2012 Biliary colic Calculus of gallbladder without mention of cholecystitis or obstruction 03/06/2012 Asthma Unspecified asthma 05/30/2012 Symptomatic cholelithiasis Calculus of gallbladder without mention of cholecystitis or obstruction 06/14/2012 Calculus of gallbladder without mention of cholecystitis or obstruction 06/18/2012 Post-operative state Other postprocedural status 06/28/2012 Peripheral neuropathy Unspecified hereditary and idiopathic peripheral neuropathy 08/14/2012 Foot pain Pain in limb 08/23/2012 Plantar fasciitis 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/23/2012 Pain in joint, ankle and foot 08/23/2012 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/23/2012 Right shoulder pain Pain in joint, shoulder region 01/07/2013 Rotator cuff tear Rotator cuff (capsule) sprain 01/07/2013 Right shoulder pain Pain in joint, shoulder region 01/08/2013 Right shoulder pain Pain in joint, shoulder region 01/16/2013 Contusion Contusion of unspecified site 01/18/2013 Primary localized osteoarthrosis, shoulder region 02/04/2013 Rotator cuff (capsule) sprain 02/04/2013 Asthma Unspecified asthma 05/20/2013 Meralgia paresthetica of left side Meralgia paresthetica 05/20/2013 Acute bronchitis 05/20/2013 Abdominal pain Abdominal pain, unspecified site 07/01/2013 Shingles Herpes zoster without mention of complication 09/09/2013 Herpes zoster without mention of complication 09/09/2013 Asthma exacerbation, unspecified asthma severity 11/08/2013 Unspecified asthma, with exacerbation 11/08/2013 Hypothyroidism Unspecified hypothyroidism 11/12/2013 Asthma, moderate persistent, uncomplicated 11/12/2013 Weight gain Abnormal weight gain 11/12/2013 Asthma, moderate persistent, uncomplicated 11/12/2013 Hypothyroidism Unspecified hypothyroidism 11/12/2013 Weight gain Abnormal weight gain 11/12/2013 Acute bronchitis 01/20/2014 Low back pain Lumbago 02/07/2014 Lumbago 02/07/2014 Cough 02/28/2014 Shortness of breath 02/28/2014 Asthma, moderate persistent, uncomplicated 03/03/2014 Low back pain Lumbago 03/03/2014 Low back pain Lumbago 03/06/2014 Neuralgia and neuritis Neuralgia, neuritis, and radiculitis, unspecified 03/17/2014 Headache 03/17/2014 Facial numbness Disturbance of skin sensation 03/17/2014 Bilateral leg numbness Disturbance of skin sensation 03/17/2014 Intervertebral lumbar disc disorder with myelopathy, lumbar region 03/24/2014 Neuralgia and neuritis Neuralgia, neuritis, and radiculitis, unspecified 03/24/2014 Headache 03/24/2014 Facial numbness Disturbance of skin sensation 03/24/2014 Bilateral leg numbness Disturbance of skin sensation 03/24/2014 Lumbosacral radiculopathy at L3 Thoracic or lumbosacral neuritis or radiculitis, unspecified 03/25/2014 Lumbosacral radiculopathy at L5 Thoracic or lumbosacral neuritis or radiculitis, unspecified 03/25/2014 Acute bronchitis 04/01/2014 Hypothyroidism Unspecified hypothyroidism 04/01/2014 Lumbosacral radiculopathy at L3 Thoracic or lumbosacral neuritis or radiculitis, unspecified 04/03/2014 Lumbosacral radiculopathy at L5 Thoracic or lumbosacral neuritis or radiculitis, unspecified 04/03/2014 Bulging disc Displacement of intervertebral disc, site unspecified, without myelopathy 04/07/2014 Lumbar radiculopathy Thoracic or lumbosacral neuritis or radiculitis, unspecified 05/20/2014 Lumbar radiculopathy Thoracic or lumbosacral neuritis or radiculitis, unspecified 05/28/2014 Lumbar radiculopathy Thoracic or lumbosacral neuritis or radiculitis, unspecified 06/02/2014 Lumbar radiculopathy Thoracic or lumbosacral neuritis or radiculitis, unspecified 06/30/2014 Hypothyroidism Unspecified hypothyroidism 07/04/2014 GERD (gastroesophageal reflux disease) Esophageal reflux 07/04/2014 Thoracic or lumbosacral neuritis or radiculitis, unspecified 07/28/2014 Acute chest pain Chest pain, unspecified 10/16/2014 Acute chest pain Chest pain, unspecified 10/16/2014 Anemia, unspecified anemia type 10/20/2014 Hospital discharge follow-up Other follow-up examination 10/20/2014 Health care maintenance Unspecified general medical examination 10/20/2014 Anemia, unspecified anemia type 10/20/2014 Hypothyroidism, unspecified hypothyroidism type 10/20/2014 Other chest pain 10/20/2014 Gastroesophageal reflux disease without esophagitis Esophageal reflux 10/20/2014 Iron deficiency anemia Iron deficiency anemia, unspecified 10/22/2014 Screening for malignant neoplasm of the rectum 10/27/2014 Moderate persistent asthma without complication Unspecified asthma 12/23/2014 Acute bronchitis, unspecified organism 12/23/2014 Acute bronchitis, unspecified organism 01/01/2015 Acquired hypothyroidism Unspecified hypothyroidism 01/20/2015 Acquired hypothyroidism Unspecified hypothyroidism 01/20/2015 Mild intermittent asthma without complication Unspecified asthma 02/03/2015 Breast pain, right Mastodynia 02/05/2015 Dysmenorrhea 02/05/2015 Moderate persistent asthma without complication Unspecified asthma 02/05/2015 Breast pain, right Mastodynia 02/05/2015 Dysmenorrhea 02/05/2015 Mild intermittent asthma with acute exacerbation Unspecified asthma, with exacerbation 02/06/2015 Asthma exacerbation Unspecified asthma, with exacerbation 03/23/2015 Abscess Cellulitis and abscess of unspecified site 04/13/2015 Urinary tract infection with hematuria, site unspecified 07/23/2015 Lower abdominal pain Abdominal pain, other specified site 07/23/2015 Abnormal menstrual cycle Unspecified disorder of menstruation and other abnormal bleeding from female genital tract 07/23/2015 Vaginal vault prolapse Unspecified prolapse of vaginal raygoza 07/23/2015 Urinary tract infection with hematuria, site unspecified 07/23/2015 Pelvic pain in female Unspecified symptom associated with female genital organs 07/27/2015 Cyst of right ovary Other and unspecified ovarian cyst 07/27/2015 S/P laparoscopy Other postprocedural status 08/13/2015 S/P endometrial ablation Other postprocedural status 08/13/2015 S/P unilateral salpingo-oophorectomy Acquired absence of organ, genital organs 08/13/2015 Dysuria 08/21/2015 S/P laparoscopy Other postprocedural status 08/21/2015 S/P endometrial ablation Other postprocedural status 08/21/2015 Endometritis Unspecified inflammatory disease of uterus 08/21/2015 Abscess of skin of abdomen Cellulitis and abscess of trunk 09/23/2015 Itching Unspecified pruritic disorder 09/23/2015 Right hip pain Pain in joint, pelvic region and thigh 10/07/2015 Arthralgia of right hip 10/08/2015 Arthralgia of right hip 10/09/2015 Sacroiliac joint dysfunction of left side Disorders of sacrum 10/15/2015 Acute low back pain Lumbago 10/20/2015 Fall, subsequent encounter 10/29/2015 Left hip pain Pain in joint, pelvic region and thigh 10/29/2015 Left-sided low back pain with left-sided sciatica 10/29/2015 Fall, subsequent encounter 10/29/2015 Numbness in left leg Disturbance of skin sensation 10/29/2015 Left-sided low back pain with left-sided sciatica 10/29/2015 Left hip pain Pain in joint, pelvic region and thigh 10/29/2015 Fall, subsequent encounter 11/10/2015 Numbness in left leg Disturbance of skin sensation 11/10/2015 Pain of left lower extremity 11/10/2015 Numbness and tingling Disturbance of skin sensation 11/20/2015 Bilateral low back pain with sciatica, sciatica laterality unspecified 11/20/2015 Numbness and tingling Disturbance of skin sensation 11/27/2015 Bilateral low back pain with sciatica, sciatica laterality unspecified 11/27/2015 Cellulitis and abscess of trunk 12/29/2015 Rash Rash and other nonspecific skin eruption 12/29/2015 Family history of diabetes mellitus 12/29/2015 Polydipsia 12/29/2015 Cellulitis and abscess of trunk 12/30/2015 Displacement of lumbar intervertebral disc without myelopathy 03/01/2016 Cervicalgia 03/01/2016 Herniated lumbar intervertebral disc Displacement of lumbar intervertebral disc without myelopathy 03/11/2016 Mild intermittent asthma with acute exacerbation Unspecified asthma, with exacerbation 03/24/2016 Postoperative abscess, initial encounter 03/27/2016 Wound infection after surgery, initial encounter 04/05/2016 Peripheral neuropathy, idiopathic Unspecified hereditary and idiopathic peripheral neuropathy 06/06/2016 Acquired hypothyroidism Unspecified hypothyroidism 06/06/2016 Acquired hypothyroidism Unspecified hypothyroidism 06/06/2016 Peripheral neuropathy, idiopathic Unspecified hereditary and idiopathic peripheral neuropathy 06/06/2016 Necrobiosis lipoidica, not elsewhere classified 06/06/2016 Acute bacterial sinusitis Acute sinusitis, unspecified 07/04/2016 Asthma exacerbation Unspecified asthma, with exacerbation 07/18/2016 Asthma exacerbation Unspecified asthma, with exacerbation 09/20/2016 Asthma exacerbation Unspecified asthma, with exacerbation 10/15/2016 Moderate asthma with acute exacerbation, unspecified whether persistent 01/26/2017 Moderate asthma with acute exacerbation, unspecified whether persistent 01/31/2017 Peripheral neuropathy, idiopathic Unspecified hereditary and idiopathic peripheral neuropathy 01/31/2017 Bilateral lower extremity pain 03/28/2017 Lumbar radiculopathy Thoracic or lumbosacral neuritis or radiculitis, unspecified 03/28/2017 Bilateral lower extremity pain 04/10/2017 Pain in both lower extremities 04/10/2017 Bilateral leg numbness Disturbance of skin sensation 04/10/2017 Exposure to the flu Contact with or exposure to other viral diseases 05/02/2017 Moderate persistent asthma with exacerbation Unspecified asthma, with exacerbation 05/02/2017 Chest pain, unspecified type 06/29/2017 Bilateral lower extremity pain 07/16/2017 Bilateral lower extremity pain 08/13/2017 Bilateral lower extremity pain 09/01/2017 Bilateral lower extremity pain 09/08/2017 Bilateral lower extremity pain 12/29/2017 Pneumonia of right lower lobe due to infectious organism 12/29/2017 Cutaneous abscess of face Cellulitis and abscess of face 01/29/2018 Acute bronchospasm 02/08/2018 Peripheral neuropathy, idiopathic Unspecified hereditary and idiopathic peripheral neuropathy 02/08/2018 Exacerbation of asthma, unspecified asthma severity, unspecified whether persistent 02/13/2018 Need for influenza vaccination Need for prophylactic vaccination and inoculation against influenza 02/28/2018 Need for pneumococcal vaccination Need for prophylactic vaccination against streptococcus pneumoniae (pneumococcus) 02/28/2018 Pain in right arm 02/28/2018 Moderate asthma with exacerbation, unspecified whether persistent 03/04/2018 Acute bronchitis, unspecified organism 03/21/2018 History of asthma Personal history of other diseases of respiratory system 03/21/2018 Mild intermittent asthma with exacerbation Unspecified asthma, with exacerbation 04/27/2018 Moderate asthma with acute exacerbation, unspecified whether persistent 04/30/2018 Acquired hypothyroidism Unspecified hypothyroidism 04/30/2018 Menopausal symptoms Symptomatic menopausal or female climacteric states 04/30/2018 Restless legs syndrome (RLS) 04/30/2018 Hot flashes Symptomatic menopausal or female climacteric states 05/17/2018 Rash and nonspecific skin eruption Rash and other nonspecific skin eruption 05/29/2018 Rash and nonspecific skin eruption Rash and other nonspecific skin eruption 05/29/2018 Cutaneous abscess of other site 07/03/2018 Chronic midline low back pain with left-sided sciatica 07/03/2018 Moderate asthma with acute exacerbation, unspecified whether persistent 07/13/2018 Muscle spasm of left lower extremity 07/13/2018 Obesity, morbid, BMI 50 or higher (HCC) 07/13/2018 Acute bacterial sinusitis Acute sinusitis, unspecified 07/23/2018 Exacerbation of asthma, unspecified asthma severity, unspecified whether persistent 08/15/2018 Left Achilles tendinitis Achilles bursitis or tendinitis 09/28/2018 Calcaneal spur, left Calcaneal spur 09/28/2018 Moderate persistent asthma with (acute) exacerbation 10/03/2018 Left leg pain Pain in limb 10/06/2018 Left leg pain Pain in limb 10/05/2018 Restless legs syndrome (RLS) 10/15/2018 Deep postoperative wound infection 11/02/2018 Deep postoperative wound infection 11/02/2018 Preop testing Preoperative examination, unspecified 11/02/2018 Annual physical exam Routine general medical examination at a health care facility 01/10/2019 Acquired hypothyroidism Unspecified hypothyroidism 01/10/2019 Chronic midline low back pain with left-sided sciatica 01/10/2019 Obesity, morbid, BMI 50 or higher (HCC) 01/10/2019 Dietary counseling Dietary surveillance and counseling 01/10/2019 Exercise counseling 01/10/2019 Situational anxiety Other anxiety states 01/10/2019 Encounter for screening mammogram for breast cancer 01/10/2019 Lipid screening Screening for lipoid disorders 01/10/2019 Annual physical exam Routine general medical examination at a health care facility 01/14/2019 Lipid screening Screening for lipoid disorders 01/14/2019 Acquired hypothyroidism Unspecified hypothyroidism 01/14/2019 Acquired hypothyroidism Unspecified hypothyroidism 01/17/2019 Right arm pain Pain in limb 03/18/2019 Fall, initial encounter 03/18/2019 Right arm pain Pain in limb 03/18/2019 Situational anxiety Other anxiety states 04/02/2019 Restless legs syndrome (RLS) 04/06/2019 Acute bronchitis, unspecified organism 04/23/2019 Acute pain of left knee 04/23/2019 Peripheral neuropathy, idiopathic Unspecified hereditary and idiopathic peripheral neuropathy 04/23/2019 Yeast dermatitis 05/16/2019 Viral URI Acute upper respiratory infections of unspecified site 06/12/2019 Body aches Generalized pain 06/12/2019 Chronic midline low back pain with left-sided sciatica 06/12/2019 Acquired hypothyroidism Unspecified hypothyroidism 06/28/2019 Situational anxiety Other anxiety states 06/30/2019 Peripheral neuropathy, idiopathic Unspecified hereditary and idiopathic peripheral neuropathy 07/07/2019 Chronic midline low back pain with left-sided sciatica 08/23/2019 Lymphadenitis Lymphadenitis, unspecified, except mesenteric 09/06/2019 Chronic midline low back pain with left-sided sciatica 09/07/2019 Abscess Cellulitis and abscess of unspecified site 09/08/2019 Abscess of arm, right Cellulitis and abscess of upper arm and forearm 09/12/2019 Situational anxiety Other anxiety states 09/26/2019 Restless legs syndrome (RLS) 10/04/2019 Peripheral neuropathy, idiopathic Unspecified hereditary and idiopathic peripheral neuropathy 10/16/2019 Chronic midline low back pain with left-sided sciatica 10/17/2019 Situational anxiety Other anxiety states 10/28/2019 Chronic midline low back pain with left-sided sciatica 11/07/2019 Chronic midline low back pain with left-sided sciatica 11/13/2019 Chronic midline low back pain with left-sided sciatica 11/30/2019 Situational anxiety Other anxiety states 12/31/2019 Exacerbation of asthma, unspecified asthma severity, unspecified whether persistent 01/03/2020 Peripheral neuropathy, idiopathic Unspecified hereditary and idiopathic peripheral neuropathy 01/24/2020 Situational anxiety Other anxiety states 02/01/2020 Chronic midline low back pain with left-sided sciatica 03/02/2020 Acute bronchitis, unspecified organism 03/18/2020 Restless legs syndrome (RLS) 03/31/2020 Chronic midline low back pain with left-sided sciatica 03/31/2020 Situational anxiety Other anxiety states 03/31/2020 Situational anxiety Other anxiety states 04/26/2020 Peripheral neuropathy, idiopathic Unspecified hereditary and idiopathic peripheral neuropathy 04/27/2020 Peripheral neuropathy, idiopathic Unspecified hereditary and idiopathic peripheral neuropathy 04/29/2020 Peripheral neuropathy, idiopathic Unspecified hereditary and idiopathic peripheral neuropathy 04/30/2020 Medication management Encounter for other specified aftercare 04/30/2020 Post-menopause bleeding Postmenopausal bleeding 04/30/2020 Obesity, morbid, BMI 50 or higher (HCC) 04/30/2020 Cervical cancer screening Screening for malignant neoplasm of the cervix 04/30/2020 Acquired hypothyroidism Unspecified hypothyroidism 04/30/2020 Well adult exam Routine general medical examination at a health care facility 04/30/2020 Chronic midline low back pain with left-sided sciatica 04/30/2020 Elevated glucose Other abnormal glucose 04/30/2020 Bacterial vaginitis Vaginitis and vulvovaginitis, unspecified 05/04/2020 Moderate asthma with acute exacerbation, unspecified whether persistent 05/07/2020 Cough 05/07/2020 Post-menopause bleeding Postmenopausal bleeding 05/15/2020 Abscess of left leg Cellulitis and abscess of leg, except foot 05/18/2020 Leg abscess Cellulitis and abscess of leg, except foot 05/19/2020 Chronic midline low back pain with left-sided sciatica 05/20/2020 Chronic midline low back pain with left-sided sciatica 05/23/2020 Abnormal uterine bleeding (AUB) 06/09/2020 Pelvic pain Unspecified symptom associated with female genital organs 06/09/2020 Dyspareunia in female 06/09/2020 Intramural leiomyoma of uterus 06/09/2020 Obesity, morbid, BMI 50 or higher (HCC) 06/09/2020 History of endometrial ablation 06/09/2020 History of right salpingo-oophorectomy 06/09/2020 Abnormal uterine bleeding (AUB) 06/10/2020 Abnormal uterine bleeding (AUB) 06/16/2020 Intramural leiomyoma of uterus 06/16/2020 History of endometrial ablation 06/16/2020 Dyspareunia in female 06/16/2020 Pelvic pain Unspecified symptom associated with female genital organs 06/16/2020 Situational anxiety Other anxiety states 06/22/2020 Lower abdominal pain Abdominal pain, other specified site 06/25/2020 Situational anxiety Other anxiety states 07/20/2020 Abnormal uterine bleeding (AUB) 07/23/2020 History of endometrial ablation 07/23/2020 Intramural leiomyoma of uterus 07/23/2020 Vaginal discharge Leukorrhea, not specified as infective 07/23/2020 Abnormal uterine bleeding (AUB) 07/27/2020 History of endometrial ablation 07/27/2020 Intramural leiomyoma of uterus 07/27/2020 Peripheral neuropathy, idiopathic Unspecified hereditary and idiopathic peripheral neuropathy 07/30/2020 Preop testing Preoperative examination, unspecified 08/05/2020 Pre-op testing Preoperative examination, unspecified 08/07/2020 Encounter for laboratory testing for COVID-19 virus 08/07/2020 Abnormal uterine bleeding (AUB) 08/11/2020 History of endometrial ablation 08/11/2020 Intramural leiomyoma of uterus 08/11/2020 Abnormal uterine bleeding (AUB) 08/11/2020 History of endometrial ablation 08/11/2020 Intramural leiomyoma of uterus 08/11/2020 Chronic midline low back pain with left-sided sciatica 08/21/2020 Encounter for postoperative care 08/21/2020 Bladder spasms Other specified disorders of bladder 08/21/2020 S/P laparoscopic hysterectomy Acquired absence of both cervix and uterus 09/08/2020 Wound drainage Injury, other and unspecified, other specified sites, including multiple 09/08/2020 Situational anxiety Other anxiety states 09/12/2020 Restless legs syndrome (RLS) 09/24/2020 Encounter for postoperative care 09/24/2020 Wound cellulitis Cellulitis and abscess of unspecified site 09/24/2020 Encounter for postoperative care 10/05/2020 Hot flashes Symptomatic menopausal or female climacteric states 10/05/2020 Bladder spasms Other specified disorders of bladder 10/16/2020 Exacerbation of asthma, unspecified asthma severity, unspecified whether persistent 10/27/2020 Encounter for postoperative care 11/02/2020 Hormone replacement therapy (HRT) 11/02/2020 Bladder spasms Other specified disorders of bladder 11/12/2020 Peripheral neuropathy, idiopathic Unspecified hereditary and idiopathic peripheral neuropathy 11/14/2020 Peripheral neuropathy, idiopathic Unspecified hereditary and idiopathic peripheral neuropathy 11/16/2020 Peripheral neuropathy, idiopathic Unspecified hereditary and idiopathic peripheral neuropathy 11/18/2020 Acquired hypothyroidism Unspecified hypothyroidism 11/18/2020 Acquired hypothyroidism Unspecified hypothyroidism 11/19/2020 Bladder spasms Other specified disorders of bladder 12/08/2020 Bladder spasms Other specified disorders of bladder 01/03/2021 Situational anxiety Other anxiety states 01/03/2021 Suspected COVID-19 virus infection 01/11/2021 Chronic midline low back pain with left-sided sciatica 01/15/2021 Bladder spasms Other specified disorders of bladder 01/30/2021 Suspected COVID-19 virus infection 02/01/2021 Acute bronchitis, unspecified organism 02/01/2021 Mild persistent asthma without complication Unspecified asthma 02/12/2021 Mild asthma with exacerbation, unspecified whether persistent 02/12/2021 Acquired hypothyroidism Unspecified hypothyroidism 02/13/2021 Peripheral neuropathy, idiopathic Unspecified hereditary and idiopathic peripheral neuropathy 02/15/2021 Bladder spasms Other specified disorders of bladder 03/04/2021 Restless legs syndrome (RLS) 03/13/2021 Situational anxiety Other anxiety states 04/02/2021 Exposure to COVID-19 virus 04/06/2021 Abscess Cellulitis and abscess of unspecified site 04/06/2021 Chronic midline low back pain with left-sided sciatica 04/15/2021 Restless legs syndrome (RLS) 04/29/2021 Acquired hypothyroidism Unspecified hypothyroidism 05/19/2021 Peripheral neuropathy, idiopathic Unspecified hereditary and idiopathic peripheral neuropathy 06/04/2021 Situational anxiety Other anxiety states 06/05/2021 Acquired hypothyroidism Unspecified hypothyroidism 06/29/2021 Well adult exam Routine general medical examination at a health care facility 07/02/2021 Peripheral edema Edema 07/02/2021 Stasis dermatitis of both legs Varicose veins of lower extremities with inflammation 07/02/2021 Cellulitis of leg, left Cellulitis and abscess of leg, except foot 07/02/2021 Lipid screening Screening for lipoid disorders 07/02/2021 Obesity, morbid, BMI 50 or higher (HCC) 07/02/2021 Chronic midline low back pain with left-sided sciatica 07/02/2021 Medication management Encounter for other specified aftercare 07/02/2021 Acquired hypothyroidism Unspecified hypothyroidism 07/02/2021 Dietary counseling Dietary surveillance and counseling 07/02/2021 Chronic midline low back pain with left-sided sciatica 07/07/2021 Well adult exam Routine general medical examination at a health care facility 07/16/2021 Lipid screening Screening for lipoid disorders 07/16/2021 Acquired hypothyroidism Unspecified hypothyroidism 08/04/2021 Peripheral neuropathy, idiopathic Unspecified hereditary and idiopathic peripheral neuropathy 09/08/2021 Hot flashes Symptomatic menopausal or female climacteric states 09/30/2021 Situational anxiety Other anxiety states 09/30/2021 Chronic midline low back pain with left-sided sciatica 09/30/2021 Acquired hypothyroidism Unspecified hypothyroidism 10/28/2021 Exacerbation of asthma, unspecified asthma severity, unspecified whether persistent 11/23/2021 Hot flashes Symptomatic menopausal or female climacteric states 11/30/2021 Peripheral neuropathy, idiopathic Unspecified hereditary and idiopathic peripheral neuropathy 12/12/2021 Chronic midline low back pain with left-sided sciatica 01/05/2022 Situational anxiety Other anxiety states 01/05/2022 Hot flashes Symptomatic menopausal or female climacteric states 02/04/2022 Acquired hypothyroidism Unspecified hypothyroidism 02/16/2022 Chronic midline low back pain with left-sided sciatica 03/03/2022 Peripheral neuropathy, idiopathic Unspecified hereditary and idiopathic peripheral neuropathy 03/16/2022 Peripheral neuropathy, idiopathic Unspecified hereditary and idiopathic peripheral neuropathy 03/17/2022 Bladder spasms Other specified disorders of bladder 04/06/2022 Hot flashes Symptomatic menopausal or female climacteric states 04/11/2022 Situational anxiety Other anxiety states 04/11/2022 Hot flashes Symptomatic menopausal or female climacteric states 04/27/2022 Hot flashes Symptomatic menopausal or female climacteric states 04/29/2022 Bladder spasms Other specified disorders of bladder 04/29/2022 Hot flashes Symptomatic menopausal or female climacteric states 04/29/2022 Hot flashes Symptomatic menopausal or female climacteric states 05/03/2022 Hot flashes Symptomatic menopausal or female climacteric states 05/03/2022 Acute bacterial sinusitis Acute sinusitis, unspecified 05/03/2022 Acute bronchitis, unspecified organism 05/03/2022 Acquired hypothyroidism Unspecified hypothyroidism 05/06/2022 Restless legs syndrome (RLS) 05/11/2022 Peripheral neuropathy, idiopathic Unspecified hereditary and idiopathic peripheral neuropathy 06/10/2022 Chronic midline low back pain with left-sided sciatica 06/14/2022 Medication management Encounter for other specified aftercare 06/14/2022 Acquired hypothyroidism Unspecified hypothyroidism 06/14/2022 Elevated glucose Other abnormal glucose 06/14/2022 Lipid screening Screening for lipoid disorders 06/14/2022 Annual physical exam Routine general medical examination at a health care facility 06/14/2022 Encounter for screening mammogram for breast cancer 06/14/2022 Obesity, morbid, BMI 50 or higher (HCC) 06/14/2022 Situational anxiety Other anxiety states 06/14/2022 Dietary counseling Dietary surveillance and counseling 06/14/2022 Exercise counseling 06/14/2022 Peripheral neuropathy, idiopathic Unspecified hereditary and idiopathic peripheral neuropathy 06/16/2022 Peripheral neuropathy, idiopathic Unspecified hereditary and idiopathic peripheral neuropathy 06/16/2022 Situational anxiety Other anxiety states 06/30/2022 Rash Rash and other nonspecific skin eruption 08/04/2022 Acute pain of left knee 08/04/2022 History of COVID-19 08/04/2022 Acquired hypothyroidism Unspecified hypothyroidism 08/10/2022 Acute pain of left knee 08/19/2022 Acute pain of left knee 08/19/2022 Chronic midline low back pain with left-sided sciatica 09/08/2022 Peripheral neuropathy, idiopathic Unspecified hereditary and idiopathic peripheral neuropathy 09/15/2022 Encounter for screening mammogram for breast cancer 09/16/2022 Stasis dermatitis of both legs Varicose veins of lower extremities with inflammation 09/22/2022 Contact dermatitis, unspecified contact dermatitis type, unspecified trigger 09/22/2022 Acquired hypothyroidism Unspecified hypothyroidism 09/22/2022 Red face Flushing 09/22/2022 Positive YNES (antinuclear antibody) Other and unspecified nonspecific immunological findings 10/04/2022 Situational anxiety Other anxiety states 10/09/2022 Urinary frequency 10/28/2022 Prediabetes Other abnormal glucose 10/28/2022 Obesity, morbid, BMI 50 or higher (HCC) 10/28/2022 Lumbar pain Lumbago 10/28/2022 UTI (urinary tract infection), uncomplicated Urinary tract infection, site not specified 10/30/2022 Restless legs syndrome (RLS) 11/09/2022 Pharyngeal dysphagia Dysphagia, pharyngeal phase 11/24/2022 Rash Rash and other nonspecific skin eruption 11/24/2022 Pharyngeal dysphagia Dysphagia, pharyngeal phase 12/03/2022 Rhinosinusitis Unspecified sinusitis (chronic) 12/07/2022 Suspected sleep apnea 12/07/2022 Peripheral neuropathy, idiopathic Unspecified hereditary and idiopathic peripheral neuropathy 12/17/2022 Peripheral neuropathy, idiopathic Unspecified hereditary and idiopathic peripheral neuropathy 12/17/2022 Peripheral neuropathy, idiopathic Unspecified hereditary and idiopathic peripheral neuropathy 12/19/2022 Excessive sleepiness Hypersomnia, unspecified 12/20/2022 Primary snoring Other dyspnea and respiratory abnormality 12/20/2022 Obstructive sleep apnea Obstructive sleep apnea (adult) (pediatric) 12/20/2022 Morbid obesity (HCC) Morbid obesity 12/20/2022 Chronic midline low back pain with left-sided sciatica 12/21/2022 Medication management Encounter for other specified aftercare 12/21/2022 Screening for colon cancer Special screening for malignant neoplasms, colon 12/21/2022 Dysphagia, unspecified type 12/21/2022 Situational anxiety Other anxiety states 01/06/2023 Mild intermittent asthma without complication Unspecified asthma 01/15/2023 Peripheral neuropathy, idiopathic Unspecified hereditary and idiopathic peripheral neuropathy 01/18/2023 Peripheral edema Edema 01/18/2023 Hospital discharge follow-up Other follow-up examination 01/18/2023 Mild intermittent asthma with exacerbation Unspecified asthma, with exacerbation 01/18/2023 Excessive sleepiness Hypersomnia, unspecified 01/24/2023 Primary snoring Other dyspnea and respiratory abnormality 01/24/2023 Obstructive sleep apnea Obstructive sleep apnea (adult) (pediatric) 01/24/2023 Morbid obesity (HCC) Morbid obesity 01/24/2023 Positive YNES (antinuclear antibody) Other and unspecified nonspecific immunological findings 02/08/2023 Skin eruption Rash and other nonspecific skin eruption 02/08/2023 Obesity, morbid, BMI 50 or higher (HCC) 02/08/2023 Positive YNES (antinuclear antibody) Other and unspecified nonspecific immunological findings 02/09/2023 Peripheral edema Edema 02/14/2023 Excessive sleepiness Hypersomnia, unspecified 02/14/2023 Obesity, morbid, BMI 50 or higher (HCC) 02/14/2023 TANIA (obstructive sleep apnea) Obstructive sleep apnea (adult) (pediatric) 02/14/2023 Primary snoring Other dyspnea and respiratory abnormality 02/14/2023 Peripheral neuropathy, idiopathic Unspecified hereditary and idiopathic peripheral neuropathy 02/16/2023 Allergic reaction, initial encounter 02/24/2023 Positive YNES (antinuclear antibody) Other and unspecified nonspecific immunological findings 03/02/2023 Skin eruption Rash and other nonspecific skin eruption 03/02/2023 Obesity, morbid, BMI 50 or higher (HCC) 03/02/2023 Anti-TPO antibodies present Other and unspecified nonspecific immunological findings 03/02/2023 Primary osteoarthritis involving multiple joints 03/02/2023 Acute bronchitis, unspecified organism 03/06/2023 Peripheral neuropathy, idiopathic Unspecified hereditary and idiopathic peripheral neuropathy 03/19/2023 Peripheral neuropathy, idiopathic Unspecified hereditary and idiopathic peripheral neuropathy 03/19/2023 Bilirubin in urine Biliuria 03/22/2023 Dark urine Other nonspecific finding on examination of urine 03/22/2023 Rhinosinusitis Unspecified sinusitis (chronic) 04/03/2023 Acute pain of left knee 04/03/2023 Situational anxiety Other anxiety states 04/05/2023 Multifocal pneumonia 04/03/2023 Hypoxia Hypoxemia 04/03/2023 Cough, unspecified type 04/07/2023 Primary hypothyroidism Unspecified hypothyroidism 04/14/2023 Primary hypothyroidism Unspecified hypothyroidism 04/14/2023 Conchis's disease Chronic lymphocytic thyroiditis 04/14/2023 Peripheral neuropathy, idiopathic Unspecified hereditary and idiopathic peripheral neuropathy 04/20/2023 Excessive sleepiness Hypersomnia, unspecified 04/20/2023 Obesity, morbid, BMI 50 or higher ([facility]) 04/20/2023 TANIA (obstructive sleep apnea) Obstructive sleep apnea (adult) (pediatric) 04/20/2023 Primary snoring Other dyspnea and respiratory abnormality 04/20/2023 Obstructive sleep apnea Obstructive sleep apnea (adult) (pediatric) 04/20/2023 Obstructive sleep apnea Obstructive sleep apnea (adult) (pediatric) 04/21/2023 Subacute cough Cough 04/26/2023 Peripheral edema Edema 04/26/2023 Cough, persistent Cough 04/26/2023 Restless legs syndrome (RLS) 05/01/2023 Situational anxiety Other anxiety states 05/01/2023 Cough, persistent Cough 05/02/2023 Drug allergy Other drug allergy 05/02/2023 Asthma in adult without complication, unspecified asthma severity, unspecified whether persistent 05/02/2023 Urticaria Urticaria, unspecified 05/02/2023 Angioedema, initial encounter 05/02/2023 Seasonal and perennial allergic rhinitis Allergic rhinitis, cause unspecified 05/02/2023 Obesity, morbid, BMI 50 or higher ([facility]) 05/09/2023 Obstructive sleep apnea Obstructive sleep apnea (adult) (pediatric) 05/09/2023 Obstructive sleep apnea Obstructive sleep apnea (adult) (pediatric) 05/17/2023 Peripheral neuropathy, idiopathic Unspecified hereditary and idiopathic peripheral neuropathy 05/22/2023 Obstructive sleep apnea Obstructive sleep apnea (adult) (pediatric) 05/25/2023 Situational anxiety Other anxiety states 05/29/2023 Lumbago with sciatica, left side 05/30/2023 Peripheral edema Edema 06/01/2023 Cellulitis of leg, right Cellulitis and abscess of leg, except foot 06/02/2023 Primary hypothyroidism Unspecified hypothyroidism 06/16/2023 Situational anxiety Other anxiety states 06/28/2023 Peripheral edema Edema 06/29/2023 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 06/30/2023 BPV (benign positional vertigo), unspecified laterality 07/12/2023 Asteatotic dermatitis Other specified disease of sebaceous glands 07/12/2023 Situational anxiety Other anxiety states 07/29/2023 Peripheral edema Edema 08/03/2023 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 08/21/2023 Acute bacterial sinusitis Acute sinusitis, unspecified 08/28/2023 Non-recurrent acute suppurative otitis media of right ear without spontaneous rupture of tympanic membrane 09/01/2023 Mild intermittent asthma, unspecified whether complicated 09/01/2023 Hospital discharge follow-up Other follow-up examination 09/06/2023 Ear pressure, right 09/06/2023 Screening for colon cancer Special screening for malignant neoplasms, colon 09/06/2023 Female bladder prolapse Cystocele, midline 09/06/2023 Peripheral edema Edema 09/08/2023 Pressure sensation in both ears 09/13/2023 Abnormal auditory perception, bilateral 09/13/2023 Ear pressure, right 09/13/2023 Acute midline low back pain without sciatica 09/21/2023 Medication management Encounter for other specified aftercare 09/22/2023 Female cystocele Cystocele, midline 10/03/2023 Rectocele 10/03/2023 Stress incontinence in female 10/03/2023 Vaginal atrophy Postmenopausal atrophic vaginitis 10/03/2023 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 Bronchitis Bronchitis, not specified as acute or chronic 10/10/2023 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 Bronchitis Bronchitis, not specified as acute or chronic 10/10/2023 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 10/12/2023 Peripheral edema Edema 10/22/2023 Restless legs syndrome (RLS) 10/23/2023 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 11/01/2023 Class 3 severe obesity due to excess calories with serious comorbidity and body mass index (BMI) of 60.0 to 69.9 in adult 11/01/2023 Acute cough 11/03/2023 COVID-19 virus detected 11/03/2023 Peripheral edema Edema 11/20/2023 Joint swelling Effusion of joint, site unspecified 12/11/2023 Joint swelling Effusion of joint, site unspecified 12/12/2023 Acute midline low back pain without sciatica 12/17/2023 YNES positive Other and unspecified nonspecific immunological findings 12/21/2023 Peripheral edema Edema 12/27/2023 Female cystocele Cystocele, midline 01/24/2024 Rectocele 01/24/2024 Stress incontinence in female 01/24/2024 Female cystocele Cystocele, midline 02/01/2024 Rectocele 02/01/2024 Stress incontinence in female 02/01/2024 Peripheral edema Edema 02/01/2024 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 02/05/2024 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 02/09/2024 Class 3 severe obesity due to excess calories with serious comorbidity and body mass index (BMI) of 60.0 to 69.9 in adult 02/09/2024 Peripheral edema Edema 02/23/2024 Bronchitis Bronchitis, not specified as acute or chronic 02/28/2024 Acute midline low back pain without sciatica 03/12/2024 Pre-op examination Preoperative examination, unspecified 03/13/2024 Female cystocele Cystocele, midline 03/13/2024 Rectocele 03/13/2024 Stress incontinence in female 03/13/2024 Post-operative nausea and vomiting Nausea with vomiting 03/13/2024 Bronchitis Bronchitis, not specified as acute or chronic 03/13/2024 Hand swelling Swelling of limb 03/14/2024 Mild intermittent asthmatic bronchitis with acute exacerbation 03/14/2024 Hospital discharge follow-up Other follow-up examination 03/19/2024 Mild intermittent asthma with acute exacerbation Unspecified asthma, with exacerbation 03/19/2024 Intravenous infiltration, subsequent encounter 03/19/2024 Female cystocele Cystocele, midline 03/28/2024 Rectocele 03/28/2024 Stress incontinence in female 03/28/2024 Personal history of asthma Personal history of other diseases of respiratory system 04/02/2024 Female cystocele Cystocele, midline 04/04/2024 Rectocele 04/04/2024 Stress incontinence in female 04/04/2024 Female cystocele Cystocele, midline 04/04/2024 Rectocele 04/04/2024 Stress incontinence in female 04/04/2024 Restless legs syndrome (RLS) 04/13/2024 Abdominal pain, LUQ (left upper quadrant) Abdominal pain, left upper quadrant 04/26/2024 Elevated glucose Other abnormal glucose 04/26/2024 Abdominal pain, LUQ (left upper quadrant) Abdominal pain, left upper quadrant 04/28/2024 Abdominal pain, LUQ (left upper quadrant) Abdominal pain, left upper quadrant 05/02/2024 Acute cystitis with hematuria Acute cystitis 05/14/2024 Postoperative examination Follow-up examination, following unspecified surgery 05/15/2024 Female cystocele Cystocele, midline 05/15/2024 Rectocele 05/15/2024 Stress incontinence in female 05/15/2024 Dysuria 05/15/2024 Nasal congestion Other diseases of nasal cavity and sinuses 05/22/2024 Rhinosinusitis Unspecified sinusitis (chronic) 05/22/2024 Body aches Generalized pain 06/07/2024 Viral URI with cough Acute upper respiratory infections of unspecified site 06/07/2024 YNES positive Other and unspecified nonspecific immunological findings 06/08/2024 Acute midline low back pain without sciatica 06/08/2024 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 07/16/2024 Acute bacterial sinusitis Acute sinusitis, unspecified 07/19/2024 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 08/08/2024 Class 3 severe obesity due to excess calories with serious comorbidity and body mass index (BMI) of 60.0 to 69.9 in adult 08/08/2024 Stress reaction of left foot, initial encounter 08/20/2024 Peroneal tendinitis of left lower extremity Other enthesopathy of ankle and tarsus 08/20/2024 Painful os peroneum syndrome 08/20/2024 Foot pain, left Pain in limb 08/20/2024 Stress reaction of left foot, initial encounter 09/03/2024 Sprain of tarsometatarsal ligament of left foot, initial encounter 09/03/2024 Stress reaction of left foot, initial encounter 09/03/2024 Peroneal tendinitis of left lower extremity Other enthesopathy of ankle and tarsus 09/03/2024 Stress reaction of left foot, initial encounter 09/03/2024 Peroneal tendinitis of left lower extremity Other enthesopathy of ankle and tarsus 09/03/2024 Stress reaction of left foot, initial encounter 09/03/2024 Sprain of tarsometatarsal ligament of left foot, initial encounter 09/03/2024 Left foot pain Pain in limb 09/03/2024 Acute midline low back pain without sciatica 09/10/2024 Stress reaction of left foot, initial encounter 09/11/2024 Peroneal tendinitis of left lower extremity Other enthesopathy of ankle and tarsus 09/11/2024 Painful os peroneum syndrome 09/11/2024 Acute costochondritis Tietze's disease 09/16/2024 Viral URI with cough Acute upper respiratory infections of unspecified site 09/20/2024 Stress reaction of left foot with routine healing, subsequent encounter 09/24/2024 Peroneal tendinitis of left lower extremity Other enthesopathy of ankle and tarsus 09/24/2024 Sprain of tarsometatarsal ligament of left foot, subsequent encounter 09/24/2024 Restless legs syndrome (RLS) 10/06/2024 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 10/07/2024 Encounter for screening mammogram for malignant neoplasm of breast Other screening mammogram 10/30/2024 Right leg pain Pain in limb 11/06/2024 Right hip pain Pain in joint, pelvic region and thigh 11/06/2024 History of pelvic surgery Personal history of surgery to other organs 11/12/2024 History of repair of rectocele 11/12/2024 History of suburethral sling procedure 11/12/2024 Chest pain Chest pain, unspecified 10/17/2014 Asthma Unspecified asthma 10/17/2014 Hypothyroidism Unspecified hypothyroidism 10/17/2014 Chest pain at rest Chest pain, unspecified 10/17/2014 Cyst of right ovary Other and unspecified ovarian cyst 07/27/2015 Pelvic pain in female Unspecified symptom associated with female genital organs 07/27/2015 Abnormal uterine bleeding (AUB) 07/27/2015 Chest pain Chest pain, unspecified 06/29/2017 Abnormal uterine bleeding (AUB) 08/11/2020 History of endometrial ablation 08/11/2020 Intramural leiomyoma of uterus 08/11/2020 Multifocal pneumonia 04/03/2023 Hypothyroidism Unspecified hypothyroidism 04/03/2023 Gastroesophageal reflux disease without esophagitis Esophageal reflux 04/03/2023 Mood disorder Unspecified episodic mood disorder 04/03/2023 Obesity, morbid, BMI 50 or higher (HCC) 04/03/2023 Peripheral neuropathy Unspecified hereditary and idiopathic peripheral neuropathy 04/03/2023 RLS (restless legs syndrome) Restless legs syndrome (RLS) 04/03/2023 Chronic midline low back pain with left-sided sciatica 04/03/2023 Mild intermittent asthma with acute exacerbation Unspecified asthma, with exacerbation 04/03/2023 Acute respiratory failure with hypoxia (HCC) Acute respiratory failure 04/03/2023 Non-recurrent acute suppurative otitis media of right ear without spontaneous rupture of tympanic membrane 09/01/2023 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
--- OUTSIDE RECORDS SUMMARY | 2024-11-16 16:25 | XMS_ITS | Encounter Summary ---
Author Organization [place] [address] Care Team Providers Care Machine Grainer Name Role Phone Abdulkadir Montoya MD Primary Care Provider [phone] Reason for Visit * Reason Onset Date Comments Medication Refill 09/20/2024 Encounter Details Date Type Department Care Team (Late st Contact Info) Description 09/20/2024 Refill [facility] [address] [place] [address] Arminda Wilson, FIRM ADMINISTRATOR [address] [place] [address] Medication Refill Social History Tobacco Use Types Packs/Day Years [...] Date Recorded PHQ-2 Total Score 0 04/04/2023 [facility] [place] of Occupat ional Health - Occupational Stress [...] No 09/02/2023 11:02 AM LATRICE LYMAN * Is the person blind or [...] of Assessment Author No 09/02/2023 11:02 AM LATRCIE LYMAN * Because of a physical, mental or emotional condition, does this person have difficulty doing errands alone such as visiting a doctor's office or shopping? Answer Date of Assessment Author No 09/02/2023 11:02 AM EDT JAKUB, AN NA documented as of this encounter Mental Status * Because of a physical, mental or emotional condition, does this person have serious difficulty concentrating, remembering or making decisions? Answer Entry Date Author No 09/02/2023 11:02 AM EDT JAKUB, AN NA documented in this encounter Plan of Treatment Upcoming Encounters Date Type Department Care Team (Late st Contact Info) Description 11/21/2024 1:45 PM EDT Office Visit [facility] [place] [facility] [address] [place] [phone] Arminda Wilson APRN [address] [place] [address] 02/10/2025 1:30 PM EDT Office Visit [facility] [address] [facility] [address] [place] [phone] Judith Lomax MD [address] [facility] [address] [place] [phone] documented as of this encounter Goals Goal Patient Goal Type Associated Problems Recent Progress Patient-Stated? Author Eat better, exercise, reach an ideal body weight General No GroRula garcia, CCMA Stay Tobacco Free Lifestyle No Rula Birch CCMA documented as of this encounter Visit Diagnoses Diagnosis Viral URI with cough Acute upper respiratory infections of unspecified site documented in this encounter Care Teams Machine Grainer Relationship Specialty Start Date End Date Abdulkadir Montoya MD [address] [place] [phone] PCP - General 06/29/09 documented as of this encounter
--- OUTSIDE RECORDS SUMMARY | 2024-11-16 16:25 | XMS_ITS | Encounter Summary ---
Author Organization [place] [address] Care Team Providers Care Senior Telecommunications Engineer Name Role Phone Abdulkadir Montoya MD Primary Care Provider [phone] Encounter Details Date Type Department Care Team (Late st Contact Info) Description 10/30/2024 Results Follow-Up [facility] [address] [place] [address] Arminad Wilson APRN [address] [place] [address] MM MAMMO DIGITAL TRACIE SCREEN BILAT Social History Tobacco Use Types Packs/Day Years [...] Date Recorded PHQ-2 Total Score 0 04/04/2023 [facility] [place] of Occupat ional Health - Occupational Stress [...] Assessment Author No 09/02/2023 11:02 AM EDT LATRICE CALL NA documented as of this encounter Mental Status * Because of a physical, mental or emotional condition, does this person have serious difficulty concentrating, remembering or making decisions? Answer Entry Date Author No 09/02/2023 11:02 AM EDT LATRICE CALL NA documented in this encounter Plan of Treatment Upcoming Encounters Date Type Department Care Team (Late st Contact Info) Description 11/21/2024 1:45 PM EDT Office Visit [facility] [place] [facility] [address] [place], [place] [phone] Arminda Wilson APRN [address] [facility] [place] [address] 02/10/2025 1:30 PM EDT Office Visit [facility] [address] [facility] [address] [place] [phone] Judith Lomax MD [address] [facility] [address] [place] [phone] documented as of this encounter Goals Goal Patient Goal Type Associated Problems Recent Progress Patient-Stated? Author Eat better, exercise, reach an ideal body weight General No Rula Birch CCMA Stay Tobacco Free Lifestyle No Rula Birch CCMA documented as of this encounter Visit Diagnoses Not on filedocumented in this encounter Care Teams Senior Telecommunications Engineer Relationship Specialty Start Date End Date Abdulkadir Montoya MD [address] [facility] [phone] PCP - General 06/29/09 documented as of this encounter
--- OUTSIDE RECORDS SUMMARY | 2024-11-16 16:25 | XMS_ITS | Encounter Summary ---
Author Organization [facility] Address [address] [place] [address] Care Team Providers Care Legal Manager Name Role Phone Abdulkadir Montoya MD Primary Care Provider [phone] Reason for Visit * Reason Comments Medication Refill Encounter Details Date Type Department Care Team (Late st Contact Info) Description 09/11/2024 Refill [email or web address] [address] [facility] [address] [place] [address] Yanick Odonnell APRN [address] [place] [address] Medication Refill Social History Tobacco Use Types [...] Date Recorded PHQ-2 Total Score 0 04/04/2023 [facility] [place] of Occupat ional Health - Occupational Stress [...] Assessment Author No 09/02/2023 11:02 AM LATRICE LYMNA * Because of a physical, mental or emotional condition, does this person have difficulty doing errands alone such as visiting a doctor's office or shopping? Answer Date of Assessment Author No 09/02/2023 11:02 AM EDLATRICE HARRY NA * Suicide Severity Rating Answer Date of Assessment Author No Risk 09/16/2024 9:34 AM EDT Lalitha Skinner RN * [place] Suicide Severity Rating Scale (Q shift for moderate and high) Question Answer Date of Assessment Author 1. In the past month, have y ou wished you were or wished you could go to sleep and not wake up? 0 09/16/2024 9:34 AM EDT Lalitha Flores RN 2. In the past month, have y ou actually had any thoughts of killing yourself? (If no, skip to question 6) 0 09/16/2024 9:34 AM EDT Lalitha Skinner, JEREL 6. Have you ever done anythi ng, started to do anything, or prepared to do anything to end your life? 0 09/16/2024 9:34 AM EDT Lalitha Skinner RN documented as of this encounter Mental Status * Because of a physical, mental or emotional condition, does this person have serious difficulty concentrating, remembering or making decisions? Answer Entry Date Author No 09/02/2023 11:02 AM LATRICE LYMAN documented in this encounter Plan of Treatment Upcoming Encounters Date Type Department Care Team (Late st Contact Info) Description 11/21/2024 1:45 PM EDT Office Visit [facility] [place] [address] [place] [phone] Arminda Wilson APRN [address] [place] [address] 02/10/2025 1:30 PM EDT Office Visit [facility] [place] [address] [facility] [address] [place] [phone] Judith Lomax MD [address] [phone] documented as of this encounter Goals Goal Patient Goal Type Associated Problems Recent Progress Patient-Stated? Author Eat better, exercise, reach an ideal body weight General No Rula Birch CCMA Stay Tobacco Free Lifestyle No Rula Birch CCMA documented as of this encounter Visit Diagnoses Diagnosis Stress reaction of left foot, initial encounter Peroneal tendinitis of left lower extremity Other enthesopathy of ankle and tarsus Painful os peroneum syndrome documented in this encounter Care Teams Legal Manager Relationship Specialty Start Date End Date Abdulkadir Montoya MD [address] [place] [phone] PCP - General 06/29/09 documented as of this encounter
--- OUTSIDE RECORDS SUMMARY | 2024-11-16 16:25 | XMS_ITS | Encounter Summary ---
Author Organization [facility] [place] [address] Care Team Providers Care C S S Representative Name Role Phone Abdulkadir Montoya MD Primary Care Provider [phone] Encounter Details Date Type Department Care Team (Latest Contact Info) Description 11/16/2024 Travel Social History Tobacco Use Types Packs/Day Years [...] Recorded PHQ-2 Total Score 0 04/04/2023 [facility] [place] of Occupat ional Health - Occupational Stress [...] 11/21/2024 1:45 PM EDT Office Visit [facility] [address] [place] [address] Arminda Wilson APRN [address] [facility] [place] [place] [address] 02/10/2025 1:30 PM EDT Office Visit [facility] [place] [address] [facility] [address] [place] [address] Judith Lomax MD [address] [facility] [address] [place] [address] documented as of this encounter Goals Goal Patient Goal Type Associated Problems Recent Progress Patient-Stated? Author Eat better, exercise, reach an ideal body weight General No Rula Birch CCMA Stay Tobacco Free Lifestyle No Rula Birch CCMA documented as of this encounter Visit Diagnoses Not on filedocumented in this encounter Care Teams C S S Representative Relationship Specialty Start Date End Date Abdulkadir Montoya MD [address] [facility] [place] [address] PCP - General 06/29/09 documented as of this encounter
--- OUTSIDE RECORDS SUMMARY | 2024-11-16 16:25 | XMS_ITS | Clinical Summary ---
Author Organization [facility] Address [address] [place] [address] Care Team Providers Care Strap Folding Machine Operator Name Role Phone System, Provider Not In Primary Care Provider Un available Source Comments This information has been disclosed to you from confidential records protectedfrom disclosure by state law. You shall make no further disclosure of thisinformation without the specific, written, and informed release of theindividual to whom it pertains, or as otherwise permitted by law. A generalauthorization for the release of medical or other information is not sufficientfor the purposes of therelease of HIV test results or diagnoses. [id number] Allergies Active Allergy Reactions Criticality Noted Date Comments Amoxicillin Anaphylaxis High 12/22/2023 Cefazolin 12/22/2023 Metronidazole 12/22/2023 Nabumetone 12/22/2023 Medications hydroxychloroqu ine (PLAQUENIL) 200 mg tablet Take 1 tablet (200 mg total) by mouth daily with breakfast. Active meloxicam (MOBIC) 15 MG tablet Take 1 tablet (15 mg total) by mouth daily. Active tiZANidine (ZANAFLEX) 4 MG capsule Take 1 capsule (4 mg total) by mouth 3 times a day. Active omeprazole (PRILOSEC) 20 MG capsule Take 1 capsule (20 mg total) by mouth every morning before breakfast. Active furosemide (LASIX) 40 MG tablet Take 1 tablet (40 mg total) by mouth daily. Active gabapentin (NEURONTIN) 400 MG capsule Take 1 capsule (400 mg total) by mouth 3 times a day. Active roPINIRole (REQUIP) 1 MG tablet Take 1 tablet (1 mg total) by mouth 3 times a day. Active estradioL (ESTRACE) 0.01 % (0.1 mg/gram) vaginal cream Place 2 g vaginally daily. Active albuterol 90 mcg/actuation Inhl inhaler Inhale 2 puffs into the lungs every 6 hours as needed for Wheezing. Active PARoxetine (PAXIL) 10 MG tablet Take 1 tablet (10 mg total) by mouth every morning. Active Hospital, Clinic, or Other Facility Administered Medication Ordered Dose Route Frequency Start Date End Date Status ciprofloxacin HCl (CIPRO) tablet 500 mgIndications:RONY (stress urinary incontinence, female) 500 mg Oral yardage caller to O.R. 01/11/2024 Active Social History Tobacco Use Types Packs/Day Years Used Date Smoking Tobacco: Former Cigarettes Tobacco Cessation:Counseling Given: Not Answered Comments Unknown Sex and Gender Information Value Date Recorded Sex Assigned at Female 11/04/2023 11:06 AM EDT Legal Sex Female 4:17 PM EST Gender Identity Female 11/04/2023 11:06 AM EDT Sexual Orientation Straight 11/04/2023 11 :06 AM EDT Last Filed Vital Signs Vital Sign Reading Time Taken Comments Blood Pressure 136/64 01/11/2024 11:58 AM EDT Pulse 82 01/11/2024 11:58 AM EDT Temperature 36.8 C (98.2 F) 01/11/2024 11:58 AM EDT Respiratory Rate 22 01/11/2024 11:58 AM EDT Oxygen Saturation 95% 01/11/2024 11:58 AM EDT Inhaled Oxygen Concentration 95% 01/11/2024 1 1:58 AM EDT Weight 163.7 kg (361 lb) 01/11/2024 11:58 AM EDT Height 165.1 cm (5' 5 ) 01/11/2024 11:58 AM EDT Body Mass Index 60.07 01/11/2024 11:58 AM EDT Plan of Treatment Health Maintenance Due Date Last Done Comments Abnormal Colonoscopy Follow Up 1977 Diabetes Screening 1977 Eye Exam 1977 Hepatitis C Screening (GEOLIDhart) 1977 Alcohol Misuse Screening 10/22/1995 Depression Screening 10/22/1995 HIV Screening 10/22/1995 Immunization: Hepatitis B (1 of 3 - 19+ 3-dose series) 1996 Mammogram (GEOLIDhart) 2017 Cologuard (FIT-DNA) 2022 Colonoscopy 2022 Colorectal Cancer Screening (MyChart) 2022 Stool Testing (gFOBT) 2022 Immunization: COVID-19 ( - season) 2023 Immunization: DTaP/Tdap/Td ( 2 - Td or Tdap) 10/20/2024 10/20/2014 Immunization: Influenza (MyChart) (#1) 2024 02/28/2018, 01/25/2013 Immunization: Pneumococcal Aged Out 02/28/2018 N o longer eligible based on patient's age to complete this topic Insurance BLUE ACCESS Care Teams Strap Folding Machine Operator Relationship Specialty Start Date End Date System, Provider Not In PCP - General 11/02/23
--- OUTSIDE RECORDS SUMMARY | 2024-11-16 16:25 | XMS_ITS | Encounter Summary ---
Author Organization [place] [address] Care Team Providers Care Irrigator Sprinkling System Name Role Phone Abdulkadir Montoya MD Primary Care Provider [phone] Reason for Visit * Reason Onset Date Comments Medication Refill 10/18/2024 Encounter Details Date Type Department Care Team (Late st Contact Info) Description 10/18/2024 Refill [facility] [place] [place] [address] Abdulkadir Montoya [place] [address] [address] Medication Refill Social History Tobacco Use Types [...] Date Recorded PHQ-2 Total Score 0 04/04/2023 [facility] [place] of Occupat ional Health - Occupational Stress [...] Assessment Author No 09/02/2023 11:02 AM EDT LTARICE CALL NA documented as of this encounter Mental Status * Because of a physical, mental or emotional condition, does this person have serious difficulty concentrating, remembering or making decisions? Answer Entry Date Author No 09/02/2023 11:02 AM EDT LATRICE CALL NA documented in this encounter Ordered Prescriptions Prescription Sig Dispense Quantity Refills Last Filled Start Date End Date tiZANidine (ZANAFLEX) 4 mg Oral Tablet Take 1 Tablet by mouth nightly as needed for Muscle spasms. 30 Tablet 2024 documented in this encounter Plan of Treatment Upcoming Encounters Date Type Department Care Team (Late st Contact Info) Description 11/21/2024 1:45 PM EDT Office Visit [facility] [place] [facility] [address] [place] [phone] Arminda Wilson APRN [address] [place] [address] 02/10/2025 1:30 PM EDT Office Visit [facility] [place] [address] [facility] [address] [place] [phone] Judith Lomax MD [address] [employer] [facility] [address] [place] [address] documented as of this encounter Goals Goal Patient Goal Type Associated Problems Recent Progress Patient-Stated? Author Eat better, exercise, reach an ideal body weight General No Rula Birch, CCMA Stay Tobacco Free Lifestyle No Rula Birch, TACH[place] documented as of this encounter Visit Diagnoses Not on filedocumented in this encounter Discontinued Medications Medication Sig Discontinue Reason Start Date End Da te tiZANidine (ZANAFLEX) 4 mg Oral Tablet TAKE 1 TABLET BY MOUTH NIGHTLY NEEDED FOR MUSCLE SPASMS. Reorder 09/18/2024 10/18/2024 documented as of this encounter Care Teams Irrigator Sprinkling System Relationship Specialty Start Date End Date Abdulkadir Montoya MD [address] [place] [phone] PCP - General 06/29/09 documented as of this encounter
--- OUTSIDE RECORDS SUMMARY | 2024-11-16 16:25 | XMS_ITS | Encounter Summary ---
Author Organization [place] [address] Care Team Providers Care Analyst Sales Name Role Phone Abdulkadir Montoya MD Primary Care Provider [phone] Reason for Visit * Reason Onset Date Comments Other 09/13/2024 FYI: Pt having m uscle spasm Patient Returning Call 09/13/2024 pt son ca lled to say that they took her to the ED Encounter Details Date Type Department Care Team (Late Contact Info) Description 09/13/2024 Telephone [facility] [place] [address] Abdulkadir Montoya MD [address] [facility] [place] [address] Other (FYI: Pt having muscle spasm); Patient Returning Call ( pt son called to say that they took her to the ED ) Social History Tobacco Use Types Packs/Day Years [...] Date Recorded PHQ-2 Total Score 0 04/04/2023 [facility] Occupat ional [facility] - Occupational Stress Questionnaire Answer Date Recorded [...] 11:02 AM EDT JAKUB, AN NA * Because of a physical, mental or emotional condition, does this person have difficulty doing errands alone such as visiting a doctor's office or shopping? Answer Date of Assessment Author No 09/02/2023 11:02 AM EDT JAKUB, AN NA * Suicide Severity Rating Answer Date of Assessment Author No Risk 09/16/2024 9:34 AM EDT Lalitha Skinner RN * [place] Suicide Severity Rating Scale (Q shift for [...] 6) 0 09/16/2024 9:34 AM EDT Lalitha Skinner RN 6. Have you ever done anythi [...] JAKUB, AN NA documented in this encounter Miscellaneous Notes * Telephone Encounter - Abdulkadir Garza - 09/13/2024 10:13 AM EDT Select the most appropriate reason for this telephone message: Patient Returning Call Reason for call: pt son called to say that they took her to the ED Information relayed to patient: yes Patient has additional questions: No Further follow-up needed? no Return Method of Communication: Phone Call Additional Information: N/A * Telephone Encounter - Nicolette Rivera Steve - 09/13/2024 9:42 AM EDT Attempted to contact x2 on her mobile number no answer did call her spouse listed on icf and lmtcb * Telephone Encounter - Aracely Montoya MD - 09/13/2024 9:34 AM EDT We can see for an acute if she would like to be seen * Telephone Encounter - Nicolette Rivera RMA - 09/13/2024 9:15 AM EDT Can you advise for pcp ? * Telephone Encounter - Nicolette Barragan, Clerical Staff - 09/13/2024 9:03 AM EDT Select the most appropriate reason for this telephone message: Other Who is calling (name & relationship to patient if not the patient): Patient What is needed OR why are they calling: FYI: Pt called in stating that she felt like her body was in one big muscle spasm and didn't know if she needed to make an appt or go to the hospital. I told the pt I could make her an appt or I could call her an ambulance and she said she will take care of it and disconnected the call before being able to help her or even offer nurse triage When is this needed by: marysol Where does this information need to go: PCP Return Method of Communication: Phone Call Additional information:thank you documented in this encounter Plan of Treatment Upcoming Encounters Date Type Department Care Team (Late st Contact Info) Description 11/21/2024 1:45 PM EDT Office Visit [facility] [place] [facility] [address] [place] [address] Arminda Wilson APRN [address] [place] [address] 02/10/2025 1:30 PM EDT Office Visit [facility] [place] [address] [facility] [address] [place] [address] Judith Lomax MD [address] [facility] [address] [place] [address] documented as of this encounter Goals Goal Patient Goal Type Associated Problems Recent Progress Patient-Stated? Author Eat better, exercise, reach an ideal body weight General No GroRula garcia CCMA Stay Tobacco Free Lifestyle No Rula Birch CCMA documented as of this encounter Visit Diagnoses Not on filedocumented in this encounter Care Teams Analyst Sales Relationship Specialty Start Date End Date Abdulkadir Montoya MD [address] [place] [phone] PCP - General 06/29/09 documented as of this encounter
--- OUTSIDE RECORDS SUMMARY | 2024-11-16 16:25 | XMS_ITS | Encounter Summary ---
Author Organization [place] [address] Care Team Providers Care Lifter/Driver Name Role Phone Abdulkadir Montoya MD Primary Care Provider [phone] Reason for Visit * Reason Comments Medication Refill Encounter Details Date Type Department Care Team (Late st Contact Info) Description 10/07/2024 Refill [facility] [address] [place] [address] Arminda Wilson APRN [address] [place], [place] [id number] Medication Refill Social History Tobacco Use Types [...] Score 0 04/04/2023 [facility] [place] of Occupat ional Health - Occupational Stress [...] No 09/02/2023 11:02 AM EDT LATRICE CALL documented as of this encounter Mental Status * Because of a physical, mental or emotional condition, does this person have serious difficulty concentrating, remembering or making decisions? Answer Entry Date Author No 09/02/2023 11:02 AM EDT LATRICE CALL documented in this encounter Ordered Prescriptions Prescription Sig Dispense Quantity Refills Last Filled Start Date End Date fUROsemide (LASIX) 40 mg Oral Tablet TAKE 1 TABLET BY MOUTH EVERY DAY 30 Tablet 10/09/2024 documented in this encounter Miscellaneous Notes * Telephone Encounter - Kristal Herrera CPhT - 10/09/2024 12:03 PM EDT fUROsemide (LASIX) 40 mg Oral Tablet Future Visit: n/a Last Assessed Visit: n/a Follow-Up Date: n/a Appointment protocol failed. No yoana supply sent to pharmacy. Routed to Office. Yoana supply previously given on 08/30/24 documented in this encounter Plan of Treatment Upcoming Encounters Date Type Department Care Team (Late st Contact Info) Description 11/21/2024 1:45 PM EDT Office Visit [facility] [place] [facility] [address] [place] [phone] Arminda Wilson APRN [address] [place] [address] 02/10/2025 1:30 PM EDT Office Visit [facility] Diabetes [place] [address] [facility] [address] [place] [phone] Judith Lomax MD [address] [address] documented as of this encounter Goals Goal Patient Goal Type Associated Problems Recent Progress Patient-Stated? Author Eat better, exercise, reach an ideal body weight General No Rula Birch CCMA Stay Tobacco Free Lifestyle No Rula Birch CCMA documented as of this encounter Visit Diagnoses Not on filedocumented in this encounter Discontinued Medications Medication Sig Discontinue Reason Start Date End Da te fUROsemide (LASIX) 40 mg Oral Tablet TAKE 1 TABLET BY MOUTH EVERY DAY 08/30/2024 10/09/2024 documented as of this encounter Care Teams Lifter/Driver Relationship Specialty Start Date End Date Abdulkadir Montoya MD [address] [place] [address] PCP - General 06/29/09 documented as of this encounter
--- OUTSIDE RECORDS SUMMARY | 2024-11-16 16:25 | XMS_ITS | Encounter Summary ---
Author Organization [place] [address] Care Team Providers Care Director Employee Communications Name Role Phone Abdulkadir Montoya MD Primary Care Provider [phone] Reason for Visit * Reason Comments Medication Refill Encounter Details Date Type Department Care Team (Late st Contact Info) Description 10/06/2024 Refill [facility] [place] [address] Abdulkadir [place] [address] [place] [address] Medication Refill Social History Tobacco Use [...] Date Recorded PHQ-2 Total Score 0 04/04/2023 [facility] [place] of Occupat ional Health - Occupational Stress [...] Date Author No 09/02/2023 11:02 AM EDT JAKUBLATRICE documented in this encounter Ordered Prescriptions Prescription Sig Dispense Quantity Refills Last Filled Start Date End Date rOPINIRole (REQUIP) 1 mg Oral TabletIndications: Restless legs syndrome (RLS) TAKE 1 TABLET BY MOUTH EVERY DAY AT NIGHT 90 Tablet 1 10/08/2024 PARoxetine (PAXIL) 20 mg Oral Tablet TAKE 1 TABLET BY MOUTH EVERY DAY 30 Tablet 10/08/2024 11/05/2024 documented in this encounter Miscellaneous Notes * Telephone Encounter - Crista Laura CPhT - 10/08/2024 1:11 PM EDT Ropinirole- There is no CRS protocol for this medication. Paroxetine- Future Visit: None Last Assessed Visit: NA Follow-Up Date: NA Appointment protocol failed. No yoana supply sent to pharmacy. Routed to Office. documented in this encounter Plan of Treatment Upcoming Encounters Date Type Department Care Team (Late st Contact Info) Description 11/21/2024 1:45 PM EDT Office Visit [facility] [place] [address] [place] [phone] Arminda Wilson APRN [address] [place] [address] 02/10/2025 1:30 PM EDT Office Visit [facility] Diabetes [place] [address] [facility] [address] [place] [phone] Judith Lomax MD [address] [phone] documented as of this encounter Goals Goal Patient Goal Type Associated Problems Recent Progress Patient-Stated? Author Eat better, exercise, reach an ideal body weight General No Rula Birch CCMA Stay Tobacco Free Lifestyle No Rula Birch CCMA documented as of this encounter Visit Diagnoses Diagnosis Restless legs syndrome (RLS) documented in this encounter Discontinued Medications Medication Sig Discontinue Reason Start Date End Da te rOPINIRole (REQUIP) 1 mg Oral TabletIndications:Restle ss legs syndrome (RLS) TAKE 1 TABLET BY MOUTH EVERY DAY AT NIGHT 04/15/2024 10/08/2024 PARoxetine (PAXIL) 20 mg Oral Tablet TAKE 1 TABLET BY MOUTH EVERY DAY 09/10/2024 10/08/2024 documented as of this encounter Care Teams Director Employee Communications Relationship Specialty Start Date End Date Abdulkadir Montoya MD [address] [place] [address] PCP - General 06/29/09 documented as of this encounter
--- OUTSIDE RECORDS SUMMARY | 2024-11-16 16:25 | XMS_ITS | Encounter Summary ---
Author Organization [place] [address] Care Team Providers Care Personal Development Mentor Name Role Phone Abdulkadir Montoya MD Primary Care Provider [phone] Reason for Visit * Reason Onset Date Comments Medication Refill 09/17/2024 Encounter Details Date Type Department Care Team (Late st Contact Info) Description 09/17/2024 Refill [facility] [place] [address] [address] Abdulkadir Montoya [place] [address] [place] [address] Medication Refill Social History Tobacco Use [...] Date Recorded PHQ-2 Total Score 0 04/04/2023 [facility] [place] of Occupat ional Health - Occupational Stress [...] Author No 09/02/2023 11:02 AM EDT JAKUB, LATRICE NA documented as of this encounter Mental [...] EDT Office Visit [facility] [place] [facility] [address] [place] [address] Arminda Wilson APRN [address] [facility] [place] [address] 02/10/2025 1:30 PM EDT Office Visit [facility] 1500 [facility] [address] [place] [phone] Judith Lomax MD 1500 [facility] [address] [place] [phone] documented as of this encounter Goals Goal Patient Goal Type Associated Problems Recent Progress Patient-Stated? Author Eat better, exercise, reach an ideal body weight General No GroRula garcia, CCMA Stay Tobacco Free Lifestyle No Rula Birch, CCMA documented as of this encounter Visit Diagnoses Not on filedocumented in this encounter Care Teams Personal Development Mentor Relationship Specialty Start Date End Date Abdulkadir Montoya MD [address] [facility] [place] [address] PCP - General 06/29/09 documented as of this encounter
--- OUTSIDE RECORDS SUMMARY | 2024-11-16 16:25 | XMS_ITS | Encounter Summary ---
Author Organization [place] [place] [address] Care Team Providers Care Plant Wire Chief Name Role Phone Abdulkadir Montoya MD Primary Care Provider [phone] Reason for Visit * Reason Comments Medication Refill Encounter Details Date Type Department Care Team (Late st Contact Info) Description 11/14/2024 Refill [facility] [place] [address] Abdulkadir Montoya [place] [address] [address] [address] Medication Refill Social History Tobacco Use [...] Recorded PHQ-2 Total Score 0 04/04/2023 [facility] [place] of Occupat ional Health - Occupational Stress [...] Refills Last Filled Start Date End Date gabapentin (NEURONTIN) 400 mg Oral Capsule TAKE 1 CAPSULE BY MOUTH 3 TIMES DAILY FOR 90 DAYS. 90 Capsule 2 11/14/2024 documented in this encounter Plan of Treatment Upcoming Encounters Date Type Department Care Team (Late st Contact Info) Description 11/21/2024 1:45 PM EDT Office Visit [facility] [place] [facility] [address] [place] [address] Arminda Wilson APRN [address] [place] [address] 02/10/2025 1:30 PM EDT Office Visit [facility] Diabetes [place] [address] [employer] [address] [place] [address] Judith Lomax MD [address] [employer] [address] [place] [phone] documented as of this encounter Goals Goal Patient Goal Type Associated Problems Recent Progress Patient-Stated? Author Eat better, exercise, reach an ideal body weight General No Rula Birch CCMA Stay Tobacco Free Lifestyle No Rula Birch CCMA documented as of this encounter Visit Diagnoses Not on filedocumented in this encounter Discontinued Medications Medication Sig Discontinue Reason Start Date End Da te gabapentin (NEURONTIN) 400 mg Oral Capsule Take 1 Capsule by mouth 3 times daily for 90 days. 07/16/2024 11/14/2024 documented as of this encounter Care Teams Plant Wire Chief Relationship Specialty Start Date End Date Abdulkadir Montoya MD [address] [place] [phone] PCP - General 06/29/09 documented as of this encounter
--- OUTSIDE RECORDS SUMMARY | 2024-11-16 16:25 | XMS_ITS | Encounter Summary ---
Author Organization [place] [address] Care Team Providers Care Tongue Lining Stitcher Name Role Phone Abdulkadir Montoya MD Primary Care Provider [phone] Reason for Visit * Reason Comments Medication Refill Encounter Details Date Type Department Care Team (Late st Contact Info) Description 09/17/2024 Refill [facility] [place] [address] Abdulkadir Montoya [place] [address] [place] [address] Medication Refill Social History Tobacco Use [...] Date Recorded PHQ-2 Total Score 0 04/04/2023 [facility] [place] of Occupat ional Health - Occupational Stress [...] Date tiZANidine (ZANAFLEX) 4 mg Oral Tablet TAKE 1 TABLET BY MOUTH NIGHTLY NEEDED FOR MUSCLE SPASMS. 30 Tablet 09/18/2024 documented in this encounter Plan of Treatment Upcoming Encounters Date Type Department Care Team (Late st Contact Info) Description 11/21/2024 1:45 PM EDT Office Visit [facility] [place] [facility] [address] [place] [address] Arminda Wilson APRN [address] [place] [address] 02/10/2025 1:30 PM EDT Office Visit [facility] [address] [employer] [facility] [address] [place] [phone] Judith Lomax MD [address] [employer] [facility] [address] [place] [phone] documented as of this encounter Goals Goal [...] BY MOUTH NIGHTLY NEEDED FOR MUSCLE SPASMS. 08/13/2024 09/18/2024 documented as of this encounter Care Teams Tongue Lining Stitcher Relationship Specialty Start Date End Date Abdulkadir Montoya MD [address] [place] [phone] PCP - General 06/29/09 documented as of this encounter
--- OUTSIDE RECORDS SUMMARY | 2024-11-16 16:25 | XMS_ITS | Encounter Summary ---
Author Organization [place] [address] Care Team Providers Care Sizing Sprayer Name Role Phone Abdulkadir Montoya MD Primary Care Provider [phone] Encounter Details Date Type Department Care Team (Late st Contact Info) Description 10/07/2024 [facility] [place] 1500 [facility] [address] [place] [phone] Judith Lomax MD 1500 [facility] [address] [place] [phone] THYROID STIMULATING HORMONE Social History Tobacco Use Types Packs/Day Years [...] Date Recorded PHQ-2 Total Score 0 04/04/2023 [facility] [place] of Occupat ional Health - Occupational Stress [...] EDT Office Visit [facility] [place] [facility] [address] [place] [phone] Arminda Wilson APRN [address] [facility] [place] [place] [address] 02/10/2025 1:30 PM EDT Office Visit [facility] 1500 [facility] [address] [place] [phone] Judith Lomax MD [address] [phone] documented as of this encounter Goals Goal Patient Goal Type Associated Problems Recent Progress Patient-Stated? Author Eat better, exercise, reach an ideal body weight General No GroRula garcia, CCMA Stay Tobacco Free Lifestyle No Rula Birch CCMA documented as of this encounter Visit Diagnoses Not on filedocumented in this encounter Care Teams Sizing Sprayer Relationship Specialty Start Date End Date Abdulkadir Montoya MD [address] [facility] [place] [address] PCP - General 06/29/09 documented as of this encounter
--- OUTSIDE RECORDS SUMMARY | 2024-11-16 16:25 | XMS_ITS | Encounter Summary ---
Author Organization [place] [address] Care Team Providers Care Purchasing Agent Name Role Phone Abdulkadir Montoya MD Primary Care Provider [phone] Reason for Visit * Reason Onset Date Comments Medication Refill 10/16/2024 Encounter Details Date Type Department Care Team (Late st Contact Info) Description 10/16/2024 Refill [facility] [place] [address] Abdulkadir Montoya [place] [address] [address] [place] [address] Medication Refill Social History Tobacco Use [...] Date Recorded PHQ-2 Total Score 0 04/04/2023 [facility] of Occupat ional Health - Occupational Stress [...] EDT Office Visit [facility] [place] [facility] [address] [place] [address] Arminda Wilson APRN [address] [facility] [place] [address] 02/10/2025 1:30 PM EDT Office Visit [facility] [address] [facility] [address] [place] [phone] Judith Lomax MD 1500 [facility] [address] [place] [phone] documented as of this encounter Goals Goal Patient Goal Type Associated Problems Recent Progress Patient-Stated? Author Eat better, exercise, reach an ideal body weight General No GroRula garcia, CCMA Stay Tobacco Free Lifestyle No Rula Birch, CCMA documented as of this encounter Visit Diagnoses Not on filedocumented in this encounter Care Teams Purchasing Agent Relationship Specialty Start Date End Date Abdulkadir Montoya MD [address] [facility] [place] [address] PCP - General 06/29/09 documented as of this encounter
--- OUTSIDE RECORDS SUMMARY | 2024-11-16 16:25 | XMS_ITS | Encounter Summary ---
Author Organization [place] [address] Care Team Providers Care Criminal Records Technician Name Role Phone Abdulkadir Montoya MD Primary Care Provider [phone] Reason for Visit * Reason Comments Medication Refill Encounter Details Date Type Department Care Team (Late st Contact Info) Description 11/02/2024 Refill [facility] [place] [address] Abdulkadir Montoya [place] [address] [address] [address] Medication Refill Social History Tobacco Use [...] Date Recorded PHQ-2 Total Score 0 04/04/2023 [facility] of Occupat ional Health - Occupational Stress [...] Refills Last Filled Start Date End Date PARoxetine (PAXIL) 20 mg Oral Tablet TAKE 1 TABLET BY MOUTH EVERY DAY 30 Tablet 11/05/2024 documented in this encounter Miscellaneous Notes * Telephone Encounter - Ethan Dong CPhT - 11/04/2024 5:31 PM EDT PARoxetine Future Visit: celsa Last Assessed Visit: celsa Follow-Up: celsa Appointment protocol failed. No yoana supply sent to pharmacy. Routed to Office. documented in this encounter Plan of Treatment Upcoming Encounters Date Type Department Care Team (Late st Contact Info) Description 11/21/2024 1:45 PM EDT Office Visit [facility] [place] [facility] [address] [place] [place] [address] Arminda Wilson APRN [address] [place] [address] 02/10/2025 1:30 PM EDT Office Visit [facility] Diabetes [place] [address] [address] Judith Lomax MD [address] [phone] documented as of this encounter Goals Goal Patient Goal Type Associated Problems Recent Progress Patient-Stated? Author Eat better, exercise, reach an ideal body weight General No Rula Birch CCMA Stay Tobacco Free Lifestyle No Rula Birch CCMA documented as of this encounter Visit Diagnoses Not on filedocumented in this encounter Discontinued Medications Medication Sig Discontinue Reason Start Date End Da te PARoxetine (PAXIL) 20 mg Oral Tablet TAKE 1 TABLET BY MOUTH EVERY DAY 10/08/2024 11/05/2024 documented as of this encounter Care Teams Criminal Records Technician Relationship Specialty Start Date End Date Abdulkadir Montoya MD [address] [place] [address] PCP - General 06/29/09 documented as of this encounter
--- NOTE | 2024-11-16 16:28 | ED_ITS ---
Discharge Plan Disposition Patient Disposition: Xfer Short-Term Hosp Referrals Follow up/Referrals: Abdulkadir Montoay [Primary Care Provider, Medical] - See instructions Clinical Impressions Clinical Impression: Tremor, Factitious hyperthyroidism Print Language Print Language: [place] Discharge ED Provider: Carlita Gaines General Adult HPI General Chief complaint: Seizure Stated complaint: Seizures Time Seen by Provider: 11/16/24 16:11 Mode of Arrival: EMS Source of Information: Patient and EMS Description of Symptoms (Recalled from ER Triage Doc. by RN): Pt in by EMS for possible seizure like activity. Pt upon arrival to ER is A/O x 4, GCS 15 with noted tremors. Pt reports symptoms began approx 1 hour DEVELOPMENT REPRESENTATIVE. Pt also c/o ORO 12/01. Pt was given fluids DEVELOPMENT REPRESENTATIVE and 10mg IM Versed.` History of Present Illness HPI narrative: This patient is a 51-year-old female with a history of obesity, Conchis's, anxiety, lupus presenting to the emergency department for evaluation with concern her body has gone crazy. Patient is alert, oriented, and conversational but is having generalized body tremors, eye fluttering, frequent bleeding. Patient states that she was feeling fine with nothing out of the ordinary until today, when she states that her body started going crazy, feeling weird and shaking all over. She arrives by EMS who noted tremulousness en route, but they state the patient was alert and conversational the entire time. They noted she was afebrile with reassuring vitals. They administered IM Versed and a bolus of IV fluids without good improvement in her symptoms. Patient states that nothing like this is ever happened before. Her only complaint aside from the tremulousness is headache. She denies any recent medication changes, fevers, chills, infectious symptoms, traumatic injury, or other concerns. Related Data Allergies Allergy/AdvReac Type Severity Reaction Status Date / Time amoxicillin Allergy Anaphylaxis Verified 11/16/24 18:19 cefazolin Allergy Rash Verified 11/16/24 18:19 cefdinir (From Omnicef) Allergy Anaphylaxis Verified 11/16/24 18:16 metronidazole Allergy Rash Verified 11/16/24 18:19 nabumetone Allergy Rash Verified 11/16/24 18:19 [facility] Disclaimer: The information contained in this section may have been updated after the patient was seen, as this information can be updated by other users. Social History Smoking Status: Never smoker alcohol intake: never current occupational status: employed Travel in the last 8 weeks?: Outside the continental [place] Have you lived/traveled outside US in past 30 days?: No Contact w/someone who lives/traveled outside US past 30 days?: No Exposure to someone with infectious disease in past 14 days?: No Do you have a fever (greater than 100.4 F or 38 C)?: No Have you tested positive for COVID-19?: No Exposed to someone with COVID-19 in past 14 days?: No Do you have a sore throat?: No Do you have a cough?: No Do you have any weakness?: No Do you have any diarrhea?: No Are you experiencing any unusual bleeding?: No Do you have any muscle aches/pain?: No Do you have any abdominal pain?: No Are you experiencing loss of taste or smell?: No ROS Obtained: Yes All systems reviewed & no additional complaints except as documented Physical Exam General General appearance: obese Comment: Generalized tremulousness, head shaking, bleeding frequently, eye rolling. Alert, oriented, conversational Head Head exam: atraumatic and normocephalic Eye Eye exam: Present normal appearance, PERRL and EOMI ENT ENT exam: Present normal exam, normal oropharynx, mucous membranes moist and normal external ear exam Neck Neck exam: Present normal inspection, full ROM and trachea midline; Absent tenderness Chest Chest inspection: Present normal inspection and symmetric chest wall rise; Absent tenderness Respiratory Respiratory exam: Present normal lung sounds bilaterally; Absent respiratory distress, wheezes, stridor or accessory muscle use Cardiovascular Cardiovascular exam: Present regular rate and normal rhythm Abdominal Exam Abdominal exam: Present soft; Absent distention, tenderness or guarding Extremities Exam Extremities exam: Present normal inspection, full ROM and normal capillary refill; Absent tenderness or edema Back Exam Back exam: Present normal inspection and full ROM; Absent tenderness Neurological Exam Neurological exam: Present alert, oriented X3 and other (Tremulousness as above, difficult to tell whether she has clonus in her lower extremities versus involuntary movements versus rigidity. No obvious focal deficits) Skin Skin exam: Present warm and dry Medical Decision Making Medical Records Medical records reviewed: Yes I reviewed the patient's medical records. Screening: Per USPSTF and CDC recommendations, given the prevalence of disease in our region, it is our hospital?s policy to screen for HIV and viral Hepatitis for all patients aged 18 and over and those with ongoing risk factors. [place] Inquiry Pt receiving controlled substance: No Vital Signs: 11/16/24 16:14 11/16/24 16:31 11/16/24 18:01 Temperature 98.5 F Temperature Source Oral Pulse Rate 95 H 75 Pulse Rate [Left] 97 H Respiratory Rate 16 22 18 Blood Pressure 107/76 L 133/71 Blood Pressure [Right Arm] 126/71 Blood Pressure Mean 82 Blood Pressure Mean [Right Arm] 89 Blood Pressure Source [Right Arm] Automatic Cuff 02 Sat by Pulse Oximetry 95 96 100 Oxygen Delivery Method Room Air Room Air Lab Data Lab results reviewed: Yes I reviewed the patient's lab results. Lab Results 11/16/24 16:15: WBC 7.9, RBC 4.29, Hgb 11.3 L, Hct 35.0 L, MCV 81.6, MCH 26.3 L, MCHC 32.3, RDW 15.0, Plt Count 184, MPV 11.2 H, Neut % (Auto) 60.2, Lymph % (Auto) 27.2, [place] % (Auto) 8.8, Eos % (Auto) 3.2, Baso % (Auto) 0.3, Neut # (Auto) 4.8, Lymph # (Auto) 2.2, [place] # (Auto) 0.7, Eos # (Auto) 0.3, Baso # (Auto) 0.0, Sodium 140, Potassium 3.5, Chloride 108 H, Carbon Dioxide 26, Anion Gap 9.5, BUN 13, Creatinine 0.90, Estimated Creat Clear 70, Estimated GFR 67, Est GFR ( Amer) 81, Glucose 97, Calcium 9.2, Phosphorus 3.0, Magnesium 1.8, Total Bilirubin 0.5, AST 36, ALT 29, Alkaline Phosphatase 119, Total Creatine Kinase 106, Troponin I < 0.01, C-Reactive Protein 31.5 H, Total Protein 6.4, Albumin 3.4 L, Globulin 3.0, Albumin/Globulin Ratio 1.1, Procalcitonin 0.062, TSH 0.38 L, Thyroxine (T4) 15.1 H, Serum HCG, Qual Negative, Plasma/Serum Alcohol < 10 11/16/24 16:20: VBG pH 7.38, VBG pCO2 39.2, VBG pO2 49.0 H, VBG HCO3 22.8 L, VBG Total CO2 24.0, VBG O2 Saturation 82.2 H, VBG Base Excess -2.3, VBG Lactic Acid 1.3 11/16/24 17:48: Urine Color Yellow, Urine Appearance Clear, Urine pH 6.0, Ur Specific [place] <= 1.005, Urine Protein Negative, Urine Glucose (UA) Negative, Urine Ketones Negative, Urine Blood Negative, Urine Nitrate Negative, Urine Bilirubin Negative, Urine Urobilinogen 0.2, Ur Leukocyte Esterase Trace, Urine RBC None, Urine WBC 5-10, Ur Squamous Epith Cells 10-20, Urine Bacteria Trace, Urine Opiates Screen Negative, Urine Methadone Screen Negative, Ur Barbituates Screen Negative, Ur Phencyclidine Scrn Negative, Ur Amphetamines Screen Negative, U Benzodiazepines Scrn Positive H, Urine Cocaine Screen Negative, U Marijuana (THC) Screen Negative 11/16/24 16:15 11/16/24 16:15 Orders (Tests/Meds): ED MEDICATIONS Discontinued Medications Generic Name Dose Route Start Last Admin Trade Name Abdoulayeq PRN Reason Stop Dose Admin Diazepam 5 mg 11/16/24 16:11 11/16/24 16:18 Diazepam 10mg/2ml Syringe IV 11/16/24 16:12 5 mg ONCE ONE Administration Diphenhydramine HCl 50 mg 11/16/24 16:44 11/16/24 16:52 Diphenhydramine 50mg/Ml Vial IV 11/16/24 16:45 50 mg ONCE ONE Administration Lactated Ringer's 1,000 mls @ 999 mls/hr 11/16/24 16:52 11/16/24 17:29 Lactated Ringer's 1000 Ml Bag IV 11/16/24 17:52 999 mls/hr .Q1H1M ONE Administration Iopamidol 80 ml 11/16/24 17:23 11/16/24 17:26 Iopamidol-370 (76%);100ml Bottle IV 11/16/24 17:24 80 ml ONCE ONE Administration Propranolol HCl 0.5 mg 11/16/24 17:28 11/16/24 18:15 Propranolol 1mg/Ml Vial IV 11/16/24 17:29 0.5 mg ONCE ONE Administration Propranolol HCl 0.5 mg 11/16/24 18:40 11/16/24 18:45 Propranolol 1mg/Ml Vial IV 11/16/24 18:41 0.5 mg ONCE ONE Administration Sodium Chloride 10 ml 11/16/24 17:23 11/16/24 17:26 Sodium Chloride 0.9% 10ml Syr (Rad Only) IV 11/16/24 17:24 10 ml ONCE ONE Administration Sodium Chloride 50 ml 11/16/24 17:23 11/16/24 17:26 0.9 % Sodium Chloride 50 Ml Vial IV 11/16/24 17:24 50 ml ONCE ONE Administration ORDERS Category Date Time Status CT angio head Stat Cat Scan 11/16/24 16:[address] angio neck Stat Cat Scan 11/16/24 16:[address] head/brain wo con Stat Cat Scan 11/16/24 16:11 Completed CBC w/Auto Diff [Complete Blood Count Auto Diff] Stat Lab 11/16/24 16:15 Completed CK [Creatine Kinase] Stat Lab 11/16/24 16:15 Completed CMP [Comprehensive Metabolic Panel] Stat Lab 11/16/24 16:15 Completed CRP [C-Reactive Protein] Stat Lab 11/16/24 16:15 Completed Ethanol [Ethyl Alcohol] Stat Lab 11/16/24 16:15 Completed MAG [Magnesium] Stat Lab 11/16/24 16:15 Completed PHOS [Phosphorous] Stat Lab 11/16/24 16:15 Completed Procalcitonin Stat Lab 11/16/24 16:15 Completed Serum [HCG Qualitative, Serum] Stat Lab 11/16/24 16:15 Completed T4 (Thyroxine) Stat Lab 11/16/24 16:15 Completed TSH [Thyroid Stimulating Hormone] Stat Lab 11/16/24 16:15 Completed Trop I [Troponin I] Stat Lab 11/16/24 16:15 Completed Troponin I Q3H Lab 11/16/24 19:15 Ordered Troponin I Q3H Lab 11/16/24 22:15 Ordered UA [Urinalysis and Microscopic] Stat Lab 11/16/24 17:48 Completed UDS [Drug Screen,Urine] Stat Lab 11/16/24 17:48 Completed Blood Culture Stat Micro 11/16/24 16:37 Ordered VBG [Venous Blood Gas] Stat RT 11/16/24 16:20 Completed ECG Data Tracing #1: I reviewed this ECG and interpreted as documented below: Motion artifact given tremulousness. Normal sinus rhythm with a ventricular rate of [address] changes concerning for STEMI. Normal QTc at 379 ms ECG initial impression date: 11/16/24 ECG initial impression time: 16:42 Medical Decision Narrative: In summary, this patient is a 51-year-old female presenting to the Emergency Department for evaluation of tremulousness and shaking all over, stating her body has gone crazy. Differential diagnoses considered include but are not limited to serotonin syndrome, extraparametal effects from dopaminergic medications, dystonia, seizure, complex migraine, PNES, electrolyte derangements among others. Ruling out the most morbid conditions drove assessment. It should be noted patient's history includes obesity, anxiety, hypothyroidism, lupus which may or may not be at goal therapy. This complicates all aspects of care by increasing patient's risk for morbidity. I reviewed patient's past medical records and noted prior evaluations by behavioral health as well as by PCP for maintenance of health. She is on multiple medications that could potentially have serotonergic/dopaminergic effects including gabapentin, paroxetine, ropinirole, tizanidine, methocarbamol which could interact. She denies the potential to take any accidental extra doses. She reports she is taking things exactly as prescribed and has had no recent medication changes. She also denies any substance use, such as alcohol or drug use. On exam, patient has generalized tremulousness in all 4 extremities, worse in her legs, eye fluttering, involuntary head jerking [id number]. I do not feel that she likely has true seizure activity at this time, as she is alert and oriented and conversational. Given that she has generalized body shaking, I would not expect that she would be able to converse and verbally respond if she were truly having seizure activity. She is afebrile and nontoxic-appearing with reassuring vitals on cardiac telemetry. Workup included lab evaluation to evaluate for infectious, metabolic, cardiac derangements as well as EKG, CT head without contrast, CT angiogram head and neck. I administered 5 mg of IV Valium and a bolus of IV fluids to assess for symptomatic improvement. She did not have any improvement after Valium, so I then tried 50 mg of IV Benadryl. I independently interpreted the scans prior to the radiologist read and noted no intracranial hemorrhage, no vessel occlusion, no mass. Please see their read for final interpretation. Labs were obtained that demonstrated reassuring CBC with no significant leukocytosis. She does have mild anemia with a hemoglobin of 11.3. VBG is reassuring with no significant metabolic or lactic acidosis. Chemistry is reassuring with normal electrolytes, negative troponin, normal kidney function and liver function. She does have low TSH and elevated T4 in the setting of exogenous levothyroxine use. Given this is a possibility for tremor, I elected to administer 0.5 mg of propranolol as she still did not get good improvement after administration of the Benadryl. This seems to help a little bit, but it did not completely resolve her symptoms. Her symptoms then recurred, so I administered another 0.5 mg of propranolol. Her heart rate and blood pressure tolerated this well.. Urinalysis is not concerning for infection. UDS is positive for benzodiazepines, which she was given by EMS prior to arrival. Ultimately, I am not sure the exact etiology of the patient's new onset of tremulousness, and I feel she would benefit from transfer to higher level of care with neurology. Patient states that she gets all of her care at [facility] and requests contacting them. I had an indirect discussion with Dr. Ruiz who stated the patient to transfer to higher level of care for further evaluation and management. She was hemodynamically stable and in no acute distress at time of transfer. Critical Care Critical Care Time Critical Care Time: No Total Time Total Critical Care Time: 45
[2024-11-16 16:31] VITALS: BP 107/76; PULSE 95; RESP 22; O2SAT 96
[2024-11-16 16:34] LABS: HCG Qualitative, Serum Negative (Negative)
[2024-11-16 16:35] LABS: Alanine Aminotransferase 29 U/L (12-78); Albumin Level 3.4 g/dl (3.5-5.0); Albumin/Globulin Ratio 1.1 (1.1-1.8); Aspartate Amino Transferase 36 U/L (14-36); Blood Urea Nitrogen 13 mg/dl (7-17); Calcium 9.2 mg/dl (8.4-10.2); Carbon Dioxide 26 mmol/L (22.0-30.0); Chloride 108 mmol/L (98-107); Creatinine Clearance Estimated 70 mL/min (50-200); Creatinine,Serum 0.90 mg/dl (0.52-1.04); Estimated Glomerular Filt Rate 67 ml/min (>60); GFR (African American) 81 ML/MIN (>60); Globulin 3.0 g/dL (1.3-3.2); Glucose 97 mg/dl (74-100); Phosphorous 3.0 mg/dl (2.5-4.5); Total Protein,Serum 6.4 g/dl (6.3-8.2)
[2024-11-16 16:36] LABS: Alkaline Phosphatase 119 U/L (38-126); Bilirubin,Total 0.5 mg/dl (0.2-1.3); Creatine Kinase 106 U/L (30-135)
[2024-11-16 16:39] LABS: C-Reactive Protein 31.5 mg/L (0-4)
[2024-11-16 16:50] LABS: Anion Gap 9.5 mEq/L (5-15)
[2024-11-16 16:51] LABS: Sodium 140 mmol/L (136-145); Troponin I < 0.01 ng/ml (0.00-0.034)
[2024-11-16 16:52] LABS: Magnesium 1.8 mg/dl (1.6-2.3); Potassium 3.5 mmoL/L (3.5-5.1); Procalcitonin 0.062 ng/mL (0.0-2.0)
[2024-11-16 16:53] LABS: T4 (Thyroxine) 15.1 ug/dl (5.53-11.0)
[2024-11-16 17:07] LABS: Thyroid Stimulating Hormone 0.38 uIU/mL (0.465-4.68)
[2024-11-16] MEDS: IOPAMIDOL-370 (76%);100ML BOTTLE 80 ML IV (17:26)
[2024-11-16] MEDS: 0.9 % SODIUM CHLORIDE 50 ML VIAL IV (17:26)
[2024-11-16] MEDS: SODIUM CHLORIDE 0.9% 10ML SYR (RAD ONLY) 10 ML IV (17:26)
[2024-11-16] MEDS: LACTATED RINGERS 1000ML 1,000 ML 999 ML IV (17:29)
[2024-11-16 18:01] VITALS: BP 133/71; PULSE 75; RESP 18; O2SAT 100
[2024-11-16 18:01] LABS: Microscopic, Urine URINE MICROSCOPIC (MICROSCOPIC)
[2024-11-16 18:04] LABS: Bilirubin,Urine Negative (Negative); Color,Urine YELLOW (Yellow); Glucose,Urine (UA) Negative (Negative); Ketones,Urine Negative (Negative); Leukocyte Esterase,Urine TRACE (Negative); PH,Urine 6.0 (5.0-8.5); Protein,Urine Negative (Negative); Specific Gravity, Urine <= 1.005 (1.005-1.030); Urobilinogen,Urine 0.2 EU/dl (0.2)
[2024-11-16] MEDS: PROPRANOLOL 1 MG/ML 0.5 MG IV ×2 (18:15→18:45)
--- NOTE | 2024-11-16 18:15 | PC.NURSE ---
Contacted [facility] in regards to consult/transfer of this patient. They are paging neuro team and will call us back.
[2024-11-16 18:18] LABS: Barbiturates Screen,Urine Negative ng/ml (<200); Benzodiazepines Screen,Urine Positive ng/ml (<200)
[2024-11-16 18:19] LABS: Amphetamine/Metha Screen,Urine Negative ng/ml (<1000)
[2024-11-16 18:21] LABS: Methadone Screen,Urine Negative ng/ml (<300)
[2024-11-16 18:22] LABS: Opiate Screen,Urine Negative ng/ml (<300); Phencyclidine Screen,Urine Negative ng/ml (<25)
[2024-11-16 18:23] LABS: Bacteria,Urine Trace /lpf
--- NOTE | 2024-11-16 18:31 | PC.NURSE ---
[facility] called back stating their provider does not do [facility] consults, so we proceeded with transferring this patient she will be reaching out to [facility] and will call us back.
--- NOTE | 2024-11-16 19:18 | PC.NURSE ---
EMS notified for transfer to [facility]
[2024-11-16 19:28] VITALS: BP 130/75; PULSE 67; RESP 17; TEMP 36.6; O2SAT 100
== END 2024-11-16 19:50 | disposition short-term general hospital (02) ==
PROVIDERS: Emergency Provider Emergency Medicine; PCP Pediatrics
DX: R25.1 Tremor, unspecified (principal); E05.40 Thyrotoxicosis factitia without thyrotoxic crisis or storm
CPT/HCPCS: 70450; 70496; 70498; 80053; 80307; 80320; 81001; 82550; 82803; 83735; 84100; 84145; 84436; 84443; 84484; 84703; 85025; 86140; 87040; 93005; 96361; 96374; 96375; 96376; 99285; J1200; J3360; J7120; Q9967

== ENCOUNTER 2024-11-25 12:34 | Emergency (ER) | payer BC, SELFPAY ==
--- OUTSIDE RECORDS SUMMARY | 2024-10-07 08:30 | XMS_ITS | Encounter Summary ---
Author Organization [facility] [place] [place] [address] Care Team Providers Care Nurse Specialist Name Role Phone Abdulkadir Montoya MD Primary Care Provider [phone] Encounter Details Date Type Department Care Team (Latest Contact Info) Description 10/07/2024 8:30 AM EDT - 10/07/2024 11:59 PM EDT Hospital Encounter [facility] [address] [facility] 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 Answer Date of Assessment Author No 09/02/2023 11:02 AM LATRICE LYMAN NA * Does this person have serious difficulty [...] Author No 09/02/2023 11:02 AM LATRICE LYMAN documented as of this encounter Mental Status * Because of a physical, mental or emotional condition, does this person have serious difficulty concentrating, remembering or making decisions? Answer Entry Date Author No 09/02/2023 11:02 AM LATRICE LYMAN documented in this encounter Medications at Time of Discharge albuterol-budeson gabriel (AIRSUPRA) 90-80 mcg/actuation Inhl HFA Aerosol InhalerIndication s:Mild intermittent asthma with acute exacerbation Inhale 2 Puffs into the lungs every 6 hours as needed. 10.7 g 1 03/19/2024 albuterol-ipratro pium (DUO-NEB) 0.5 mg-3 mg(2.5 mg base)/3 mL Inhl Solution for Nebulization Take 3 mL by nebulization 0800, 1200, 1600, 2000. 60 Each 09/26/2023 EPINEPHrine (EPIPEN) 0.3 mg/0.3 mL Inj Auto-Injector Inject 0.3 mL into the muscle as needed for Anaphylaxis. 2 Each 04/10/2024 hydroxychloroquin e (PLAQUENIL) 200 mg Oral TabletIndications :YNES positive TAKE 1 TABLET BY MOUTH EVERY DAY 30 Tablet 5 06/10/2024 LEVOthyroxine (SYNTHROID) 175 mcg Oral Tablet Take 1 Tablet by mouth daily. 08/08/2024 omeprazole (PRILOSEC) 40 mg Oral Capsule, Delayed Release(E.C.)Clary cations:Abdominal pain, LUQ (left upper quadrant) Take 1 Capsule by mouth daily. 90 Capsule 3 04/26/2024 rOPINIRole (REQUIP) 1 mg Oral TabletIndications :Restless legs syndrome (RLS) TAKE 1 TABLET BY MOUTH EVERY DAY AT NIGHT 90 Tablet 1 10/08/2024 Brompheniramine-P seudoeph-DM 2-30-10 mg/5 mL Oral SyrupIndications: Viral URI with cough Take 10 mL by mouth every 4 hours as needed (Cough, Nasal Congestion, Allergies). 240 mL 1 06/07/2024 fUROsemide (LASIX) 40 mg Oral Tablet TAKE 1 TABLET BY MOUTH EVERY DAY 30 Tablet 10/09/2024 fUROsemide (LASIX) 40 mg Oral Tablet TAKE 1 TABLET BY MOUTH EVERY DAY 30 Tablet 08/30/2024 5 gabapentin (NEURONTIN) 400 mg Oral Capsule Take 1 Capsule by mouth 3 times daily for 90 days. 90 Capsule 2 07/16/2024 5 ibuprofen (ADVIL;MOTRIN) 800 mg Oral TabletIndications :Stress reaction of left foot, initial encounter,Peronea l tendinitis of left lower extremity,Painful os peroneum syndrome Take 1 Tablet by mouth every 6 hours as needed. 40 Tablet 08/20/2024 5 meloxicam (MOBIC) 15 mg Oral TabletIndications :Acute midline low back pain without sciatica TAKE 1 TABLET BY MOUTH EVERY DAY 30 Tablet 2 09/10/2024 5 naproxen (NAPROSYN) 500 mg Oral Tablet Take 1 Tablet by mouth 2 times daily as needed for Pain for up to 30 days. 30 Tablet 09/16/2024 5 PARoxetine (PAXIL) 20 mg Oral Tablet TAKE 1 TABLET BY MOUTH EVERY DAY 30 Tablet 10/08/2024 5 PARoxetine (PAXIL) 20 mg Oral Tablet TAKE 1 TABLET BY MOUTH EVERY DAY 30 Tablet 09/10/2024 5 rOPINIRole (REQUIP) 1 mg Oral TabletIndications :Restless legs syndrome (RLS) TAKE 1 TABLET BY MOUTH EVERY DAY AT NIGHT 90 Tablet 1 04/15/2024 5 documented as of this encounter Discharge Disposition Disposition Code Departure Means Destination Home or Self Care documented in this encounter Plan of Treatment Upcoming Encounters Date Type Department Care Team (Late st Contact Info) Description 11/27/2024 8:00 AM EDT Appointment [facility] [address] [place] [address] Abdulkadir Montoya MD [address] [place] [phone] 02/10/2025 1:30 PM EDT Office Visit [facility] [address] [facility] [address] [place] [phone] Judith Lomax MD [address] [phone] documented as of this encounter Goals Goal Patient Goal Type Associated Problems Recent Progress Patient-Stated? 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 Blood VENOUS BLOOD / Unknown Venipuncture / Unknown 10/07/2024 9:00 AM EDT 10/07/2024 9:16 AM EDT Narrative [facility]REFERR[facility] [employer] - 10/07/2024 12:04 PM EDT Ingestion of rayshawn doses of biotin (>5 mg/day) taken within 8 hours of drawing blood sample can interfere with this immunoassay test. 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
--- OUTSIDE RECORDS SUMMARY | 2024-10-30 09:25 | XMS_ITS | Encounter Summary ---
Author Organization [facility] [address] Care Team Providers Care Machinery Mechanic Name Role Phone Abdulkadir Montoya MD Primary Care Provider [phone] Reason for Referral * Mammography (Routine) - Pending Review Specialty Diagnoses / Procedures Referred By Donna quiñonez Referred To Contact Radiology Diagnoses Encounter for screening mammogram for malignant neoplasm of breast Procedures MM MAMMO DIGITAL TRACIE SCREEN Arminda Orozco APRN [address] [place] [id number] Phone: tel: fax: Referral ID Status Reason Start Date Expiration Date V isits Requested Visits Authorized [id number] Pending Review 2024 2026 1 1 Reason for Visit * Mammography (Routine) - Pending Review Specialty Diagnoses / Procedures Referred By Donna quiñonez Referred To Contact Radiology Diagnoses Encounter for screening mammogram for malignant neoplasm of breast Procedures MM MAMMO DIGITAL TRACIE SCREEN Arminda Orozco APRN [address] [place] [address] Phone: tel: fax: Referral ID Status Reason Start Date Expiration Date V isits Requested Visits Authorized [id number] Pending Review 2024 2026 1 1 Encounter Details Date Type Department Care Team (Latest Contact Info) Description 10/30/2024 9:25 AM EDT - 10/30/2024 11:59 PM EDT Hospital Encounter [facility] [address] [place] [phone] Arminda Wilson APRN [address] [place] [address] Encounter for screening mammogram for malignant neoplasm of breast Discharge Disposition: Home or Self Care Social [...] Date Recorded PHQ-2 Total Score 0 04/04/2023 [facility] [place] of Occupat ional Health - Occupational Stress [...] LYMAN NA * Does this person have difficulty dressing or bathing? Answer Date of Assessment Author No 09/02/2023 11:02 AM LATRICE LYMAN NA * Because of a physical, mental or [...] DAY AT NIGHT 90 Tablet 1 10/08/2024 tiZANidine (ZANAFLEX) 4 mg Oral Tablet Take 1 Tablet by mouth nightly as needed for Muscle spasms. 30 Tablet 2024 Brompheniramine-P seudoeph-DM 2-30-10 mg/5 mL Oral SyrupIndications: Viral URI with cough Take 10 mL by mouth every 4 hours as needed (Cough, Nasal Congestion, Allergies). 240 mL 1 06/07/2024 fUROsemide (LASIX) 40 mg Oral Tablet TAKE 1 TABLET BY MOUTH EVERY DAY 30 Tablet 10/09/2024 gabapentin (NEURONTIN) 400 mg Oral Capsule Take [...] EVERY DAY 30 Tablet 2 09/10/2024 5 PARoxetine (PAXIL) 20 mg Oral Tablet TAKE 1 TABLET BY MOUTH EVERY DAY 30 Tablet 10/08/2024 documented as of this encounter Discharge Disposition Disposition Code Departure Means Destination Home or Self Care documented in this encounter Plan of Treatment Upcoming Encounters Date Type Department Care Team (Late st Contact Info) Description 11/27/2024 8:[address] [facility] [address] [place] [address] Abdulkadir Montoya MD [address] [place] [id number] 02/10/2025 1:30 PM EDT Office Visit [facility] [address] [facility] [address] [place] [address] Judith Lomax MD [address] [facility] [address] [place] [address] documented as of this encounter Goals Goal Patient Goal Type Associated Problems Recent Progress Patient-Stated? Author Eat better, exercise, reach an ideal body weight General No GroRula garcia CCMA Stay Tobacco Free Lifestyle No Rula Birch CCMA documented as of this encounter Procedures Procedure Name Priority Date/Time Associated Diagnosis Comments MM MAMMO DIGITAL TRACIE SCREEN BILAT Routine 10/30/2024 10:03 AM EDT Encounter for screening mammogram for malignant neoplasm of breast documented in this encounter Results * MM MAMMO DIGITAL TRACIE SCREEN BILAT (10/30/2024 10:03 AM EDT) Anatomical Region Laterality Modality Breast Bilateral Mammography 10/30/2024 10:0 3 AM EDT Impressions 10/30/2024 10:39 AM EDT Negative ([id number]) RECOMMENDATION: Routine Screening Mammogram in 1 Year Bilateral . . COMMENTS: DISCLAIMER *The patient was notified by MyChart or mail of the results for this examination. *The patient's information was entered into a reminder system with a target due date for the next breast imaging, in accordance with the [employer] and the Society of Breast Imaging recommendations. *Breast Imaging has a false negative rate of 15%. *Any patient with a palpable abnormality, unexplained by breast imaging, should be managed on a clinical basis by the attending physician. Narrative 10/30/2024 10:39 AM EDT EXAM: MM MAMMO DIGITAL TRACIE SCREEN BILAT EXAM DATE: 10/30/2024 10:03 AM INDICATION: Z12.31-Encounter for screening mammogram for malignant neoplasm of [id number] COMPARISON STUDIES: Compared with prior studies the most recent being 09/16/2022 MM MAMMO DIGITAL TRACIE SCREEN BILAT at [facility] TISSUE DENSITY: There are scattered areas of fibroglandular density. FINDINGS: No mammographic evidence of malignancy. Procedure Note Kaleb Jimeenz MD - 10/30/2024 EXAM: MM MAMMO DIGITAL TRACIE SCREEN BILAT EXAM DATE: 10/30/2024 10:03 AM INDICATION: Z12.31-Encounter for screening mammogram for malignantneoplasm of [id number] COMPARISON STUDIES: Compared with prior studies the most recent being 09/16/2022 MM MAMMO DIGITAL TRACIE SCREEN BILAT at [facility] TISSUE DENSITY: There are scattered areas of fibroglandular density. FINDINGS: No mammographic evidence of malignancy. IMPRESSION: Negative ([id number]) RECOMMENDATION: Routine Screening Mammogram in 1 Year Bilateral . . COMMENTS: DISCLAIMER *The patient was notified by MyChart or mail of the results for this examination. *The patient's information was entered into a reminder system with atarget due date for the next breast imaging, in accordance with the [employer] and the Society of Breast Imaging recommendations. *Breast Imaging has a false negative rate of 15%. *Any patient with a palpable abnormality, unexplained by breast imaging,should be managed on a clinical basis by the attending physician. Arminda [place] APRN IMG MAMMOGRAPHY ORDERABLES Final Result documented in this encounter Visit Diagnoses Diagnosis Encounter for screening mammogram for malignant neoplasm of breast Other screening mammogram documented in this encounter Care Teams Machinery Mechanic Relationship Specialty Start Date End Date Abdulkadir [place] [address] [place] [id number] PCP - General 06/29/09 documented as of this encounter
--- OUTSIDE RECORDS SUMMARY | 2024-11-06 12:23 | XMS_ITS | Encounter Summary ---
Author Organization [place] [address] Care Team Providers Care Sorter/Assay Tech Name Role Phone Abdulkadir Montoya MD Primary Care Provider [phone] Reason for Visit * Reason Comments Fall Pt states she fell l ast night in a small hole and state she is having right hip and leg pain. Encounter Details Date Type Department Care Team (Late st Contact Info) Description 11/06/2024 12:23 PM EDT - 11/06/2024 3:24 PM EDT Emergency [facility] Emergency [address] [place] [address]. [place] [address] Corazon Salvador MD [address] [place] [phone] Right leg pain (Primary Dx); Right hip pain Discharge Disposition: Home or Self Care Social [...] Date Recorded PHQ-2 Total Score 0 04/04/2023 [facility] - Occupational Stress Questionnaire Answer Date Recorded [...] on file documented as of this encounter Last Filed Vital Signs Vital Sign Reading Time Taken Comments Blood Pressure 115/75 11/06/2024 12:20 PM EDT Pulse 92 11/06/2024 12:08 PM EDT Temperature 36.4 C (97.5 F) 11/06/2024 12:20 PM EDT Respiratory Rate 18 11/06/2024 12:08 PM EDT Oxygen Saturation 98% 11/06/2024 12:08 PM EDT Inhaled Oxygen Concentration - - Weight 166.5 kg (367 lb) 11/06/2024 12:20 PM EDT Height 165.1 cm (5' 5 ) 11/06/2024 12:20 PM EDT Body Mass Index 61.07 11/06/2024 12:20 PM EDT documented in this encounter Functional Status * Is the person deaf or does he/she have serious difficulty hearing? Answer Date of Assessment Author No 09/02/2023 11:02 AM EDT JAKUB, AN NA * Is the person blind or does he/she have serious difficulty seeing even when wearing glasses? Answer Date of Assessment Author No 09/02/2023 11:02 AM EDT JAKUB, AN NA * Does this person have serious difficulty walking or climbing stairs? Answer Date of Assessment Author No 09/02/2023 11:02 AM EDT HODOT, AN NA * Does this person have difficulty dressing or bathing? Answer Date of Assessment Author No 09/02/2023 11:02 AM EDT MASONDOT, AN NA * Because of a physical, mental or emotional condition, does this person have difficulty doing errands alone such as visiting a doctor's office or shopping? Answer Date of Assessment Author No 09/02/2023 11:02 AM EDT JAKUB, AN NA * Suicide Severity Rating Answer Date of Assessment Author No Risk 11/06/2024 12:21 PM EDT Abdirizak Resendiz RN * [place] Suicide Severity Rating Scale (Q shift for moderate and high) Question Answer Date of Assessment Author 1. In the past month, have y ou wished you were or wished you could go to sleep and not wake up? 0 11/06/2024 12:21 PM EDT Abdirizak Ortiz RN 2. In the past month, have y ou actually had any thoughts of killing yourself? (If no, skip to question 6) 0 11/06/2024 12:21 PM EDT Abdirizak Taylor RN 6. Have you ever done anythi ng, started to do anything, or prepared to do anything to end your life? 0 11/06/2024 12:21 PM EDT Abdirizak Taylor RN documented as of this encounter Mental Status * Because of a physical, mental or emotional condition, does this person have serious difficulty concentrating, remembering or making decisions? Answer Entry Date Author No 09/02/2023 11:02 AM EDT JAKUB, AN NA documented in this encounter Discharge Instructions * Discharge Instructions* Yin Raygoza PA-C - 11/06/2024 3:15 PM EDT Take medications as prescribed. Follow-up with orthopedics in 1 to 3 days for further evaluation of the right hip and leg. Return if new or worsening of symptoms documented in this encounter Medications at Time of Discharge acetaminophen (TYLENOL) 500 mg Oral Tablet Take 1 Tablet by mouth every 6 hours as needed for Pain for up to 30 days. 30 Tablet 11/06/2024 albuterol-budeson gabriel (AIRSUPRA) 90-80 mcg/actuation Inhl HFA [...] by mouth daily. 90 Capsule 3 04/26/2024 PARoxetine (PAXIL) 20 mg Oral Tablet TAKE 1 TABLET BY MOUTH EVERY DAY 30 Tablet 11/05/2024 rOPINIRole (REQUIP) 1 mg Oral TabletIndications :Restless [...] 6 hours as needed. 40 Tablet 08/20/2024 meloxicam (MOBIC) 15 mg Oral TabletIndications :Acute midline low back pain without sciatica TAKE 1 TABLET BY MOUTH EVERY DAY 30 Tablet 2 09/10/2024 methocarbamoL (ROBAXIN) 750 mg Oral Tablet Take 1 Tablet by mouth 3 times daily as needed for Pain for up to 30 days. 20 Tablet 11/06/2024 methylPREDNISolon e (MEDROL DOSPACK) 4 mg Oral Tablets, Dose Pack See package instructions 21 Tablet 11/05/2024 5 documented as of this encounter Ordered Prescriptions Prescription Sig Dispense Quantity Refills Last Filled Start Date End Date acetaminophen (TYLENOL) 500 mg Oral Tablet Take 1 Tablet by mouth every 6 hours as needed for Pain for up to 30 days. 30 Tablet 11/06/2024 12/06/2024 methocarbamoL (ROBAXIN) 750 mg Oral Tablet Take 1 Tablet by mouth 3 times daily as needed for Pain for up to 30 days. 20 Tablet 11/06/2024 11/17/2024 documented in this encounter Discharge Disposition Disposition Code Departure Means Destination Comment s Home or Self Usp Discharge instructions reviewed. Patient had no questions. documented in this encounter ED Notes * Jazmin Lowry RN - 11/06/2024 1:55 PM EDT Assisted patient to restroom with wheelchair. Upon bringing patient back to room, pt refusing to get back into bed stating it is easier for me to stay in the wheelchair. * Yin Raygoza PA-C - 11/06/2024 12:07 PM EDT Chief Complaint Patient presents with Fall Pt states she fell last night in a small hole and state she is having right hip and leg pain. The patient was seen with Dr. Corazon Salvador. The patient is a 49-year-old female who presents with right hip, right knee, and right ankle pain. Patient states she stepped in a hole that was dug by her dog in the backyard yesterday and fell. Shestates he twisted the right hip, knee, and ankle. She states most of the pain is in the right hip. She is having difficulties putting pressure on the right leg. She denies head trauma or loss of consciousness. Patient has no other complaints today. History provided by: Patient Fall Patient History Allergies Allergen Reactions Amoxil [Amoxicillin] Anaphylaxis Reaction to Augmentin, but patient concerned about taking Amoxil. Augmentin [Amoxicillin-Pot Clavulanate] Anaphylaxis Cefazolin Itching and Rash Pt also had an asthma attack Metronidazole Shortness Of Breath and Myalgia Relafen [Nabumetone] Rash Home Medications: Prior to Admission medications Medication Sig Start Date End Date Last Dose Authorizing Provider albuterol-budesonide (AIRSUPRA) 90-80 mcg/actuation Inhl HFA Aerosol Inhaler Inhale 2 Puffs into the lungs every 6 hours as needed. 03/19/24 Arminda Wilson APRN albuterol-ipratropium (DUO-NEB) 0.5 mg-3 mg(2.5 mg base)/3 mL Inhl Solution for Nebulization Take 3mL by nebulization 0800, 1200, 1600, 2000. 09/26/23 Jj Garcia MD Bpvtvxainojcohi-Wqtzaazge-WD 2-30-10 mg/5 mL Oral Syrup Take 10 mL by mouth every 4 hours as needed(Cough, Nasal Congestion, Allergies). 06/07/24 Arminda Wilson APRN COLLAGEN MISC 2 Tablets by [facility].(Non-Drug; Combo Route) route daily. Collagen Peptide Multivitamin Provider, Historical docusate sodium (COLACE) 100 mg Oral Capsule Take 1 Capsule by mouth 2 times daily. Patient taking differently: Take 100 mg by mouth as needed. 04/04/24 Elmira Mendoza MD EPINEPHrine (EPIPEN) 0.3 mg/0.3 mL Inj Auto-Injector Inject 0.3 mL into the muscle as needed for Anaphylaxis. 04/10/24 Abdulkadir Montoya MD fUROsemide (LASIX) 40 mg Oral Tablet TAKE 1 TABLET BY MOUTH EVERY DAY 10/09/24 Arminda Wilson APRN hydroxychloroquine (PLAQUENIL) 200 mg Oral Tablet TAKE 1 TABLET BY MOUTH EVERY DAY 06/10/24 Abdulkadir Montoya MD ibuprofen (ADVIL;MOTRIN) 800 mg Oral Tablet Take 1 Tablet by mouth every 6 hours as needed. 08/20/24Yanick Odonnell APRN ibuprofen (ADVIL;MOTRIN) 600 mg Oral Tablet Take 1 Tablet by mouth every 6 hours as needed for Pain. 04/04/24 Elmira Mendoza MD LEVOthyroxine (SYNTHROID) 175 mcg Oral Tablet Take 1 Tablet by mouth daily. 08/08/24 Judith Lomax MD meloxicam (MOBIC) 15 mg Oral Tablet TAKE 1 TABLET BY MOUTH EVERY DAY 09/10/24 Abdulkadir Montoya MD methylPREDNISolone (MEDROL DOSPACK) 4 mg Oral Tablets, Dose Pack See package instructions 11/05/24 Abdulkadir Montoya MD omeprazole (PRILOSEC) 40 mg Oral Capsule, Delayed Release(E.C.) Take 1 Capsule by mouth daily. 04/26/24 Arminda Wilson APRN PARoxetine (PAXIL) 20 mg Oral Tablet TAKE 1 TABLET BY MOUTH EVERY DAY 11/05/24 Abdulkadir Montoya MD rOPINIRole (REQUIP) 1 mg Oral Tablet TAKE 1 TABLET BY MOUTH EVERY DAY AT NIGHT 10/08/24 Abdulkadir Montoya MD tiZANidine (ZANAFLEX) 4 mg Oral Tablet Take 1 Tablet by mouth nightly as needed for Muscle spasms. 10/21/24 Abdulkadir Montoya MD Past Medical History: Past Medical History: Diagnosis Date Allergy Anemia in the past Anxiety Arthritis Asthma 01/29/2013 last attack one and half months ago. BUTLER (dyspnea on exertion) GERD (gastroesophageal reflux disease) Conchis's disease Headache Heartburn Hypothyroidism Neuromuscular disorder (HCC) legs and feet Pneumonia 2018 Postoperative nausea and vomiting 01/29/2013 Rash Rotator cuff injury 01/29/2013 currently right rotator cuff injury. Sleep apnea LOW SPO2 LEVELS Slow to wake up after anesthesia Systemic lupus erythematosus with organ system involvement ([facility]) 01/08/2024 Thyroid disease Urinary incontinence Urinary tract infection not current Social History: reports that she quit smoking about 25 years ago. Her smoking use included cigarettes. She started smoking about 33 years ago. She has a 12 pack-year smoking history. She has been exposed to tobacco smoke. She has never used smokeless tobacco. She reports being sexually active and has had partner(s) who are male. She reports using the following method of control/protection: Surgical. She reports that she does not drink alcohol and does not use drugs. E-Cigarettes (such as Vapes or Juul) E-Cigarette Use Never User Family History: Family History Problem Relation Age of Onset Arthritis Mother Diabetes Father High Blood Pressure Father Heart Disease Father Kidney Disease Father High Cholesterol Father Stroke Father Asthma Father Thyroid Disease Brother Heart Disease Maternal Grandmother Diabetes Paternal Grandmother Heart Disease Paternal Grandmother High Blood Pressure Paternal Grandmother Thyroid Disease Brother Diabetes Paternal Uncle High Cholesterol Paternal Uncle Heart Disease Paternal Uncle High Blood Pressure Paternal Uncle Anesth Problems Neg Hx Surgical History: Past Surgical History: Procedure Laterality Date ACHILLES TENDON SURGERY Left 09/28/2018 LEFT ACHILIES TENDON RECONSTRUCTION WITH EXCISION 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; Surgeon: Parveen Marsh MD; Location: [facility] MAIN OR; Service: Orthopedics APPENDECTOMY BACK SURGERY laminectomy, discectomy SECTION CHOLECYSTECTOMY, LAPAROSCOPIC 06/18/2012 LAPAROSCOPIC CHOLECYSTECTOMY ; Surgeon: Faith Navas MD; Location: [facility] MAIN OR; Service: General CYSTOCELE REPAIR N/A 04/04/2024 Anterior Repair; Posterior Repair; Placement of Retropubic Midurethral Mesh Sling; Cystoscopy; Surgeon: Elmira Mendoza MD; Location: [facility] MAIN OR; Service: Gynecology DENTAL SURGERY 01/29/2013 premolar DILATION AND CURETTAGE OF UTERUS ENDOMETRIAL ABLATION N/A 07/29/2015 Surgeon: Manuel Moran MD; Location: [facility] MAIN OR; Service: Gynecology HYSTERECTOMY Left 08/11/2020 ROBOTIC ASSISTED TOTAL LAPAROSCOPIC HYSTERECTOMY LEFT OOPHORECTOMY ; Surgeon: Beverly Hernandez DO; Location: [facility] MAIN OR; Service: Gynecology HYSTEROSCOPY August LAPAROSCOPY Right 07/29/2015 DAVINCI ROBOTIC ASSISTED LAPAROSCOPY BILATERAL SALPINGECTOMY, RIGHT OOPHERECTOMY WITH DILATION AND CURETTAGE HYSTEROSCOPY ABLATION WITH NOVASURE; Surgeon: Manuel Moran MD; Location: [facility] MAIN OR; Service: Gynecology LUMBAR DISC SURGERY Bilateral 03/11/2016 LUMBAR LAMINECTOMY AND DISCECTOMY LEFT L5/S1 ; Surgeon: Ramesh Garcia MD; Location: [facility] MA[facility] OR; Service: Neurosurgery OVARY REMOVAL Right SHOULDER ARTHROSCOPY Right 02/04/2013 RIGHT SHOULDER ARTHROSCOPY, ROTATOR CUFF REPAIR, SUBACROMIAL DECOMPRESSION, MACARIO, DEBRIDEMENT ; Surgeon: Kendall Garcia MD; Location: [facility] MA[facility] OR; Service: Orthopedics SHOULDER SURGERY SOFT TISSUE BIOPSY N/A 03/29/2016 INCISION AND DRAINAGE LUMBAR WOUND; Surgeon: Ramesh Garcia MD; Location: [facility] OR; Service: Neurosurgery SPINE SURGERY TONSILLECTOMY TUBAL LIGATION URETHROPEXY N/A 04/04/2024 .; Surgeon: Elmira Mendoza MD; Location: [facility] MAIN OR; Service: Gynecology Review of Systems Review of Systems Constitutional: Negative. HENT: Negative. Respiratory: Negative. Cardiovascular: Negative. Genitourinary: Negative. Musculoskeletal: Positive for arthralgias. Neurological: Negative. All other systems reviewed and are negative. Physical Exam Blood pressure 115/75, pulse 92, temperature 97.5 ??F (36.4 ??C), temperature source Oral, resp. rate 18, height 5' 5 (1.651 m), weight (!) 367 lb (166.5 kg), last menstrual period 10/15/2018, SpO2 98%, not currently . Physical Exam Vitals and nursing note reviewed. Constitutional: General: She is not in acute distress. Appearance: Normal appearance. She is not ill-appearing, toxic-appearing or diaphoretic. HENT: Head: Atraumatic. Cardiovascular: Rate and Rhythm: Normal rate and regular rhythm. Pulses: Normal pulses. Heart sounds: Normal heart sounds. No murmur heard. Pulmonary: Effort: Pulmonary effort is normal. No respiratory distress. Breath sounds: Normal breath sounds. No stridor. No wheezing, rhonchi or rales. Musculoskeletal: Right hip: Tenderness and bony tenderness present. Decreased range of motion. Right upper leg: Normal. Right knee: No swelling or deformity. Normal range of motion. Tenderness present over the medial joint line and lateral joint line. Right lower leg: Pitting Edema present. Right ankle: No swelling, deformity or lacerations. Tenderness present over the lateral malleolus and medial malleolus. Normal range of motion. Right Achilles Tendon: Normal. Right foot: Normal. Skin: General: Skin is warm. Neurological: General: No focal deficit present. Mental Status: She is alert and oriented to person, place, and time. Psychiatric: Mood and Affect: Mood normal. Behavior: Behavior normal. Procedures Radiology/EKG/Labs: Results for orders placed or performed during the hospital encounter of 11/06/24 XR HIP RIGHT AP LATERAL W AP PELVIS Narrative XR HIP RIGHT AP LATERAL W AP PELVIS, 11/06/2024 12:51 PM CLINICAL HISTORY: -Rule out fracture COMPARISON: None. PROCEDURE COMMENTS: AP view of the pelvis with AP and frog-leg views of the hip. FINDINGS: Bony structure of the pelvis and hips intact. No acute fracture or dislocation. Mild arthritic changes noted. Impression No acute abnormality of the hip or pelvis. - Note: Radiology results need to be interpreted within a comprehensive clinical context. If you have questions about the radiology report, please contact the office of the ordering clinician. XR KNEE RIGHT AP LAT INT EXT OBLIQUES AND SUNRISE Narrative XR KNEE RIGHT AP LAT INT EXT OBLIQUES AND SUNRISE, 11/06/2024 12:52 PM CLINICAL HISTORY: -Rule out fracture COMPARISON: None. PROCEDURE COMMENTS: XR KNEE RIGHT AP LAT INT EXT OBLIQUES AND SUNRISE FINDINGS: No acute fracture or dislocation. Tricompartmental degenerative changes are most apparent and moderate in the medial compartment. No substantial effusion. Impression No acute abnormality of the knee. - Note: Radiology results need to be interpreted within a comprehensive clinical context. If you have questions about the radiology report, please contact the office of the ordering clinician. XR ANKLE RIGHT AP LATERAL AND OBLIQUE Narrative XR ANKLE RIGHT AP LATERAL AND OBLIQUE, 11/06/2024 12:59 PM CLINICAL HISTORY: -Rule out fracture COMPARISON: None. PROCEDURE COMMENTS: XR ANKLE RIGHT AP LATERAL AND OBLIQUE FINDINGS: The ankle mortise is congruent and there is no fracture. There is no joint effusion. Joint spaces overall well-maintained. Calcaneal enthesopathy. Impression No acute osseous abnormality of the ankle. - Note: Radiology results need to be interpreted within a comprehensive clinical context. If you have questions about the radiology report, please contact the office of the ordering clinician. CT LOWER EXTREMITY RIGHT WO CONTRAST Narrative CT LOWER EXTREMITY RIGHT WO CONTRAST, 11/06/2024 2:38 PM CLINICAL HISTORY: -Rule out fracture COMPARISON: None. PROCEDURE COMMENTS: Multidetector CT with multiplanar reconstructions per ordered protocol. Dose 1 : CT DLP Total : 1167.86 mGycm DLP Spiral Max : 1160.79 mGycm Maximum CTDI Vol : 34.45 mGy FINDINGS: No acute fracture or dislocation. Background moderate primary issue arthritis of the right hip. No osseous erosions or acute periostitis. No mass lesion or osteolytic process. Soft tissues unremarkable. Impression 1. No acute fracture or dislocation. 2. 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 - Note: Radiology results need to be interpreted within a comprehensive clinical context. If you have questions about the radiology report, please contact the office of the ordering clinician. ED Course: Appropriate laboratory and radiology studies reviewed ED Clinical Impression: Right leg pain (primary encounter diagnosis) Right hip pain Critical Care time MDM Medical Decision Making The patient was seen and evaluated in the ED for the above complaints. Examination unremarkable foracute findings. X-ray of the right hip, right knee, right ankle were read as no acute bony abnormalities. CT of theright hip was ordered for further evaluation. It was read as no acute fracture or dislocation. She has a walker at home. She was prescribed Robaxin and Tylenol and referred to orthopedics. Discharge instructions were explained to her, she verbalized understanding. Patient was discharged home in a stable condition. Condition at Discharge/Transfer from Department: Improved This chart was completed using voice recognition technology and may contain unintended errors Yin Raygoza PA-C 11/06/24 [id number] Cosigned by Corazon Salvador MD at 11/07/2024 7:45 AM EDT Associated attestation - Corazon Salvador MD - 11/07/2024 7:45 AM EDT I have reviewed the chief complaint, history of present illness, physical examinations, workup results for this patient. I have participated in the care of this patient. I personally approved the management plan for this patient and take responsibility for the patient management. I interpret x-rays independently. X-rays of right hip show no acute fracture or dislocation. X-ray of the right knee show no acute fracture. X-ray of right ankle show no acute fracture or dislocation. documented in this encounter Plan of Treatment Upcoming Encounters Date Type Department Care Team (Late st Contact Info) Description 11/27/2024 8:00 AM EDT Appointment [facility] MRI [address] [place] [address] Abdulkadir Montoya MD [address] [place] [address] 02/10/2025 1:30 PM EDT Office Visit [facility] [place] [address] [address] Judith Lomax MD [address] [address] documented as of this encounter Goals Goal Patient Goal Type Associated Problems Recent Progress Patient-Stated? Author Eat better, exercise, reach an ideal body weight General No Rula Birch CCMA Stay Tobacco Free Lifestyle No Rula Birch CCMA documented as of this encounter Procedures Procedure Name Priority Date/Time Associated Diagnosis Comments CT LOWER EXTREMITY RIGHT WO CONTRAST STAT 11/06/2024 2:38 PM EDT XR ANKLE RIGHT AP LATERAL AND OBLIQUE FELI 11/06/2024 12:59 PM EDT XR KNEE RIGHT AP LAT INT EXT OBLIQUES AND SUNRISE FELI 11/06/2024 12:52 PM EDT XR HIP RIGHT AP LATERAL W AP PELVIS FELI 11/06/2024 12:51 PM EDT documented in this encounter Results * CT LOWER EXTREMITY RIGHT WO CONTRAST (11/06/2024 2:38 PM EDT) Anatomical Region Laterality Modality Leg Computed Tomogra phy 11/06/2024 2:38 PM EDT Impressions 11/06/2024 3:06 PM EDT 1. No acute fracture or dislocation. 2. 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 - Note: Radiology results need to be interpreted within a comprehensive clinical context. If you have questions about the radiology report, please contact the office of the ordering clinician. Narrative 11/06/2024 3:[address] LOWER EXTREMITY RIGHT WO CONTRAST, 11/06/2024 2:38 PM CLINICAL HISTORY: -Rule out fracture COMPARISON: None. PROCEDURE COMMENTS: Multidetector CT with multiplanar reconstructions per ordered protocol. Dose 1 : CT DLP Total : 1167.86 mGycm DLP Spiral Max : 1160.79 mGycm Maximum CTDI Vol : 34.45 mGy FINDINGS: No acute fracture or dislocation. Background moderate primary issue arthritis of the right hip. No osseous erosions or acute periostitis. No mass lesion or osteolytic process. Soft tissues unremarkable. Procedure Note Gaudencio Zamora MD - 11/06/2024 CT LOWER EXTREMITY RIGHT WO CONTRAST, 11/06/2024 2:38 PM CLINICAL HISTORY: -Rule out fracture COMPARISON: None. PROCEDURE COMMENTS: Multidetector CT with multiplanar reconstructionsper ordered protocol. Dose 1 : CT DLP Total : 1167.86 mGycm DLP Spiral Max : 1160.79 mGycm Maximum CTDI Vol : 34.45 mGy FINDINGS: No acute fracture or dislocation. Background moderate primaryissue arthritis of the right hip. No osseous erosions or acute periostitis. Nomass lesion or osteolytic process. Soft tissues unremarkable. IMPRESSION: 1. No acute fracture or dislocation. 2. 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 - Note: Radiology results need to be interpreted within a comprehensiveclinical context. If you have questions about the radiology report, please contactthe office of the ordering clinician. us Bhupendra Franco Banire PA-C IMG CT ORDERABLES Final Result * XR ANKLE RIGHT AP LATERAL AND OBLIQUE (11/06/2024 12:59 PM EDT) Anatomical Region Laterality Modality Ankle Radiographic Glo ging 11/06/2024 12:5 9 PM EDT Impressions 11/06/2024 1:07 PM EDT No acute osseous abnormality of the ankle. - Note: Radiology results need to be interpreted within a comprehensive clinical context. If you have questions about the radiology report, please contact the office of the ordering clinician. Narrative 11/06/2024 1:07 PM EDT XR ANKLE RIGHT AP LATERAL AND OBLIQUE, 11/06/2024 12:59 PM CLINICAL HISTORY: -Rule out fracture COMPARISON: None. PROCEDURE COMMENTS: XR ANKLE RIGHT AP LATERAL AND OBLIQUE FINDINGS: The ankle mortise is congruent and there is no fracture. There is no joint effusion. Joint spaces overall well-maintained. Calcaneal enthesopathy. Procedure Note Franco Parra MD - 11/06/2024 XR ANKLE RIGHT AP LATERAL AND OBLIQUE, 11/06/2024 12:59 PM CLINICAL HISTORY: -Rule out fracture COMPARISON: None. PROCEDURE COMMENTS: XR ANKLE RIGHT AP LATERAL AND OBLIQUE FINDINGS: The ankle mortise is congruent and there is no fracture. Thereis no joint effusion. Joint spaces overall well-maintained. Calcaneal enthesopathy. IMPRESSION: No acute osseous abnormality of the ankle. - Note: Radiology results need to be interpreted within a comprehensiveclinical context. If you have questions about the radiology report, please contactthe office of the ordering clinician. us Bhupendra Franco Banire PA-C IMG DIAGNOSTIC IMAGING O RDERABLES Final Result * XR KNEE RIGHT AP LAT INT EXT OBLIQUES AND SUNRISE (11/06/2024 12:52 PM EDT) Anatomical Region Laterality Modality Knee Radiographic Glo ging 11/06/2024 12:5 2 PM EDT Impressions 11/06/2024 1:07 PM EDT No acute abnormality of the knee. - Note: Radiology results need to be interpreted within a comprehensive clinical context. If you have questions about the radiology report, please contact the office of the ordering clinician. Narrative 11/06/2024 1:07 PM EDT XR KNEE RIGHT AP LAT INT EXT OBLIQUES AND SUNRISE, 11/06/2024 12:52 PM CLINICAL HISTORY: -Rule out fracture COMPARISON: None. PROCEDURE COMMENTS: XR KNEE RIGHT AP LAT INT EXT OBLIQUES AND SUNRISE FINDINGS: No acute fracture or dislocation. Tricompartmental degenerative changes are most apparent and moderate in the medial compartment. No substantial effusion. Procedure Note Franco Parra MD - 11/06/2024 XR KNEE RIGHT AP LAT INT EXT OBLIQUES AND SUNRISE, 11/06/2024 12:52 PM CLINICAL HISTORY: -Rule out fracture COMPARISON: None. PROCEDURE COMMENTS: XR KNEE RIGHT AP LAT INT EXT OBLIQUES AND SUNRISE FINDINGS: No acute fracture or dislocation. Tricompartmental degenerative changesare most apparent and moderate in the medial compartment. No substantialeffusion. IMPRESSION: No acute abnormality of the knee. - Note: Radiology results need to be interpreted within a comprehensiveclinical context. If you have questions about the radiology report, please contactthe office of the ordering clinician. us Yin Raygoza PA-C IMG DIAGNOSTIC IMAGING O RDERABLES Final Result * XR HIP RIGHT AP LATERAL W AP PELVIS (11/06/2024 12:51 PM EDT) Anatomical Region Laterality Modality Hip Radiographic Glo ging 11/06/2024 12:5 1 PM EDT Impressions 11/06/2024 1:06 PM EDT No acute abnormality of the hip or pelvis. - Note: Radiology results need to be interpreted within a comprehensive clinical context. If you have questions about the radiology report, please contact the office of the ordering clinician. Narrative 11/06/2024 1:06 PM EDT XR HIP RIGHT AP LATERAL W AP PELVIS, 11/06/2024 12:51 PM CLINICAL HISTORY: -Rule out fracture COMPARISON: None. PROCEDURE COMMENTS: AP view of the pelvis with AP and frog-leg views of the hip. FINDINGS: Bony structure of the pelvis and hips intact. No acute fracture or dislocation. Mild arthritic changes noted. Procedure Note Franco Parra MD - 11/06/2024 XR HIP RIGHT AP LATERAL W AP PELVIS, 11/06/2024 12:51 PM CLINICAL HISTORY: -Rule out fracture COMPARISON: None. PROCEDURE COMMENTS: AP view of the pelvis with AP and frog-leg views ofthe hip. FINDINGS: Bony structure of the pelvis and hips intact. No acute fracture ordislocation. Mild arthritic changes noted. IMPRESSION: No acute abnormality of the hip or pelvis. - Note: Radiology results need to be interpreted within a comprehensiveclinical context. If you have questions about the radiology report, please contactthe office of the ordering clinician. Yin Raygoza PA-C IMG DIAGNOSTIC IMAGING O RDERABLES Final Result documented in this encounter Visit Diagnoses Diagnosis Right leg pain- Primary Pain in limb Right hip pain Pain in joint, pelvic region and thigh documented in this encounter Administered Medications Inactive Administered Medications - up to 1 most recent administrations Medication Order MAR Action Action Date Dose Rate Site oxyCODONE-acetaminophen (PERCOCET) 5-325 mg per tablet 1 Tablet 1 Tablet, Oral, ONCE, 1 dose, On Mon11/06/24 at 1230, *Maximum adult dose of acetaminophen is 4000 mg from all sources in 24 hours.* Given 11/06/2024 12:33 PM EDT 1 Tablet oxyCODONE-acetaminophen (PERCOCET) 5-325 mg per tablet 1 Tablet 1 Tablet, Oral, ONCE, 1 dose, On Mon11/06/24 at 1430, *Maximum adult dose of acetaminophen is 4000 mg from all sources in 24 hours.* Given 11/06/2024 2:27 PM EDT 1 Tablet documented in this encounter Active and Recently Administered Medications Times are shown in EDT. Scheduled Medication Order 11/04/2024 11/05/2024 11/06/2024 oxyCODONE-acetaminophen (PERCOCET) 5-325 mg per tablet 1 Tablet (COMPLETED) 1 Tablet, Oral, ONCE, 1 dose, On Mon11/06/24 at 1230, *Maximum adult dose of acetaminophen is 4000 mg from all sources in 24 hours.* 1233 (Given - Provid er: Jazmin Lowry RN) oxyCODONE-acetaminophen (PERCOCET) 5-325 mg per tablet 1 Tablet (COMPLETED) 1 Tablet, Oral, ONCE, 1 dose, On Mon11/06/24 at 1430, *Maximum adult dose of acetaminophen is 4000 mg from all sources in 24 hours.* 1427 (Given - Provid er: Jazmin Lowry RN) documented in this encounter Orders Medications Ordered That Wallace ht Not Have Been Administered Count Last Ordered Date First Ordered Date oxyCODONE-acetaminophen (PER COCET) 5-325 mg per tablet 1 Tablet 1 11/06/2024 documented in this encounter Care Teams Sorter/Assay Tech Relationship Specialty Start Date End Date Abdulkadir Montoya MD [address] [place] [phone] PCP - General 06/29/09 documented as of this encounter
--- OUTSIDE RECORDS SUMMARY | 2024-11-12 11:30 | XMS_ITS | Encounter Summary ---
Author Organization [place] [address] Care Team Providers Care Marketing Technology Specialist Name Role Phone Abdulkadir Montoya MD Primary Care Provider [phone] Reason for Visit * Reason Comments Follow-up Encounter Details Date Type Department Care Team (Latest Contact Info) Description 11/12/2024 11:30 AM EDT Office Visit [facility] [address] [phone] Nicolette Phillips PA-C [address] [place] [address] History of pelvic surgery (Primary [...] Date Recorded PHQ-2 Total Score 0 04/04/2023 [place] [place] [facility] - Occupational Stress [...] the original note were not included. Nicolette Phililps PA-C Follow Up Note Gisela Kennedy 1975 [...] Conchis's disease Headache Heartburn Hypothyroidism Neuromuscular disorder ([facility]) legs and feet Pneumonia 2018 Postoperative nausea and vomiting 01/29/2013 Rash Rotator cuff injury 01/29/2013 currently right rotator cuff injury. Sleep apnea LOW SPO2 LEVELS Slow to wake up after anesthesia Systemic lupus erythematosus with organ system involvement ([facility]) 01/08/2024 Thyroid disease Urinary incontinence Urinary tract infection not current Past Surgical History: Procedure Laterality Date ACHILLES TENDON SURGERY Left 09/28/2018 LEFT ACHILIES TENDON RECONSTRUCTION WITH EXCISION 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; Surgeon: Parveen Marsh MD; Location: [facility] MA[facility] OR; Service: Orthopedics APPENDECTOMY BACK SURGERY laminectomy, discectomy SECTION CHOLECYSTECTOMY, LAPAROSCOPIC 06/18/2012 LAPAROSCOPIC CHOLECYSTECTOMY ; Surgeon: Faith Navas MD; Location: [facility] MA[facility] OR; Service: General CYSTOCELE REPAIR N/A 04/04/2024 Anterior Repair; Posterior Repair; Placement of Retropubic Midurethral Mesh Sling; Cystoscopy; Surgeon: Elmira Mendoza MD; Location: [facility] OR; Service: Gynecology DENTAL SURGERY 01/29/2013 premolar DILATION AND CURETTAGE OF UTERUS ENDOMETRIAL ABLATION N/A 07/29/2015 Surgeon: Manuel Moran MD; Location: [facility] MAIN OR; Service: Gynecology HYSTERECTOMY Left 08/11/2020 ROBOTIC ASSISTED TOTAL LAPAROSCOPIC HYSTERECTOMY LEFT OOPHORECTOMY ; Surgeon: Beverly Hernandez DO; Location: [facility] OR; Service: Gynecology HYSTEROSCOPY August LAPAROSCOPY Right 07/29/2015 DAVINCI ROBOTIC ASSISTED LAPAROSCOPY BILATERAL SALPINGECTOMY, RIGHT OOPHERECTOMY WITH DILATION AND CURETTAGE HYSTEROSCOPY ABLATION WITH NOVASURE; Surgeon: Manuel Moran MD; Location: [facility] OR; Service: Gynecology LUMBAR DISC SURGERY [...] 80 Resp: 16 SpO2: 99% Pelvic Exam: Ear Pull Machine Operator: Kristina External genitalia: Normal Introitus: Atrophic Vagina: Atrophic POP-Q Aa = -2 Ba = -2 C = -7 GH = 3 PB = 3 TVL = 9 Ap = -2 Bp = -2 D = x Nicolette Phillips PA-C [facility] [place] [address] 11/12/24 1:13 PM documented in this encounter Plan of Treatment Upcoming Encounters Date Type Department Care Team (Late st Contact Info) Description 11/27/2024 8:00 AM EDT Appointment [facility] [address] [place] [address] Abdulkadir Montoya MD [address] [place] [phone] 02/10/2025 1:30 PM EDT Office Visit [facility] Diabetes [place] [address] [facility] [address] [place] [address] Judith Lomax MD [address] [facility] [address] [place] [address] documented as of this encounter [...] procedure documented in this encounter Care Teams Marketing Technology Specialist Relationship Specialty Start Date End Date Abdulkadir Montoya MD [address] [facility] [place] [phone] PCP - General 06/29/09 documented as of this encounter
--- OUTSIDE RECORDS SUMMARY | 2024-11-16 18:38 | XMS_ITS | Encounter Summary ---
Author Organization [place] [address] Care Team Providers Care Engineering Geologist Name Role Phone Abdulkadir Montoya MD Primary Care Provider [phone] Reason for Visit * Auth/Cert/Inpt Specialty Diagnoses / Procedures Referred By Contac t Referred To Contact Diagnoses Seizure-like activity (HCC) seizure like activity Referral ID Status Reason Start Date Expiration Date Visits Re quested Visits Authorized [id number] 1 1 Encounter Details Date Type Department Care Team (Latest Contact Info) Description 11/16/2024 6:38 PM EDT - 11/17/2024 5:57 PM EDT Hospital Encounter [facility] [address] [place] [address] Arcadio Ruiz MD [address] [place] [address] Alfonzo Cormier MD [address] [place] [id number] Discharge Disposition: Home or Self Care Social [...] Date Recorded PHQ-2 Total Score 0 04/04/2023 [facility] - Occupational Stress [...] Sign Reading Time Taken Comments Blood Pressure 117/56 11/17/2024 4:25 PM EDT Pulse 85 11/17/2024 5:30 PM EDT Temperature 36.8 C (98.3 F) 11/17/2024 4:25 PM EDT Respiratory Rate 16 11/17/2024 4:25 PM EDT Oxygen Saturation 95% 11/17/2024 4:25 PM EDT Inhaled Oxygen Concentration - - Weight 165.5 kg (364 lb 14.4 oz) 11/17/2024 5:19 AM EDT Height 165.1 cm (5' 5 ) 11/16/2024 11:0 8 PM EDT Body Mass Index 60.72 11/16/2024 11:08 PM EDT documented in this encounter Functional Status * Alcohol Screening Score Answer Date of Assessment Author 0 11/17/2024 12:00 AM EDT Mark Arana am, RN * Drug Screening Score Answer Date of Assessment Author 0 11/17/2024 12:00 AM EDT Mark Arana am, RN * Question Answer Date of Assessment Author How often do you have a drin k containing alcohol? 0 11/17/2024 12:00 AM Hannah Urbina RN How many drinks containing alcohol do you have on a typical day when you are drinking? 0 11/17/2024 12:00 AM Hannah Urbina RN How often do you have six or more drinks on one occasion? 0 11/17/2024 12:00 AM Mark Syed RN AUDIT-C to Determine Rows 4-10 0 11/17/2024 12:00 AM Hannah Urbina RN * Is the person deaf or does he/she have serious difficulty hearing? Answer Date of Assessment Author No 09/02/2023 11:02 AM EDT LATRICE CALL * Is the person blind or does he/she have serious difficulty seeing even when wearing glasses? Answer Date of Assessment Author No 09/02/2023 11:02 AM EDLATRICE HARRY NA * Does this person have serious difficulty walking or climbing stairs? Answer Date of Assessment Author No 09/02/2023 11:02 AM LATRICE LYMAN NA * Does this person have difficulty dressing or bathing? Answer Date of Assessment Author No 09/02/2023 11:02 AM EDLATRICE HARRY NA * Because of a physical, mental or emotional condition, does this person have difficulty doing errands alone such as visiting a doctor's office or shopping? Answer Date of Assessment Author No 09/02/2023 11:02 AM LATRICE LYMAN * Suicide Severity Rating Answer Date of Assessment Author No Risk 11/16/2024 11:08 PM Mark Alvarado am, RN * Todd Suicide Severity Rating Scale (Q shift for moderate and high) Question Answer Date of Assessment Author 1. In the past month, have you wished you were or wished you could go to sleep and not wake up? 0 11/16/2024 11:08 PM Hannah Urbina RN 2. In the past month, have you actually had any thoughts of killing yourself? (If no, skip to question 6) 0 11/16/2024 11:08 PM Hannah Urbina RN 6. Have you ever done anything, started to do anything, or prepared to do anything to end your life? 0 11/16/2024 11:08 PM EDMark Leong RN documented as of this encounter Mental Status * Because of a physical, mental or emotional condition, does this person have serious difficulty concentrating, remembering or making decisions? 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 Hospital Course/Significant Findings: Seizure-like activity (HCC) Seen and discussed w neurologist -EEG here during a spell w no SZ activity -suspect psychogenic -Likely will marcelino OP CBT for this issue --Advised OP Fu in next week w [facility] 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 Continue taking this medication, and follow the directions you see here. CONTINUE taking these medications acetaminophen 500 mg Tab Dose: 500 mg Qty: 30 Tablet Refills: 0 Commonly known as: TYLENOL 500 mg, Oral, EVERY 6 HOURS PRN Airsupra 90-80 mcg/actuation Hfaa Dose: 2 Puff Qty: 10.7 g Refills: 1 Generic drug: albuterol-budesonide 2 Puffs, Inhalation, EVERY 6 HOURS PRN albuterol-ipratropium 3 mg-0.5 mg(2.5 mg base)/3 mL Nebu Dose: 3 mL Qty: 60 Each Refills: 0 Commonly known as: DUO-NEB 3 mL, Nebulization, 4 TIMES DAILY (RESP CARE) cetirizine 10 mg Tab Dose: 10 mg Refills: 0 Commonly known as: ZyrTEC COLLAGEN MISC Dose: 2 Tablet Refills: 0 docusate sodium 100 mg Cap Dose: 100 mg Qty: 60 Capsule Refills: 2 Commonly known as: COLACE 100 mg, Oral, 2 TIMES DAILY EPINEPHrine 0.3 mg/0.3 mL Atin Dose: 0.3 mg Qty: 2 Each Refills: 0 Commonly known as: EPIPEN 0.3 mg, Intramuscular, PRN gabapentin 400 mg Cap Dose: 400 mg Qty: 90 Capsule Refills: 2 Comment: Not to exceed 3 additional fills before 01/12/2025 Commonly known as: NEURONTIN 400 mg, Oral, 3 TIMES DAILY hydroxychloroquine 200 mg Tab Dose: 200 mg Qty: 30 Tablet Refills: 5 Commonly known as: PLAQUENIL 200 mg, Oral, DAILY LEVOthyroxine 175 mcg Tab Dose: 175 mcg Refills: 0 Commonly known as: SYNTHROID 175 mcg, Oral, DAILY omeprazole 40 mg Cpdr Dose: 40 mg Qty: 90 Capsule Refills: 3 Commonly known as: PriLOSEC 40 mg, Oral, DAILY PARoxetine 20 mg Tab Dose: 20 mg Qty: 30 Tablet Refills: 0 Commonly known as: PAXIL 20 mg, Oral, DAILY rOPINIRole 1 mg Tab Dose: 1 mg Qty: 90 Tablet Refills: 1 Commonly known as: REQUIP 1 mg, Oral, NIGHTLY tiZANidine 4 mg Tab Dose: 4 mg Qty: 30 Tablet Refills: 0 Commonly known as: ZANAFLEX 4 mg, Oral, NIGHTLY PRN STOP taking these medications Wazqrahpqbibyeb-Bomwgkckt-HH 2-30-10 mg/5 mL Syrp fUROsemide 40 mg Tab Commonly known as: LASix meloxicam 15 mg Tab Commonly known as: MOBIC methocarbamoL 750 mg Tab Commonly known as: ROBAXIN methylPREDNISolone 4 mg Dspk Commonly known as: MEDROL DOSPACK Follow Up: [facility] [address] [facility] [address] Call in 1 week(s) Hospital Follow Up Signed: Alfonzo Cormier MD 11/17/2024 4:50 PM documented in this encounter Discharge Instructions * Attachments The following attachments cannot be sent through Care Everywhere. * Psychotherapy (Cook Islander) documented in this encounter Medications at Time [...] 0800, 1200, 1600, 2000. 60 Each 09/26/2023 cetirizine (ZYRTEC) 10 mg Oral TabletIndications :seasonal allergic rhinitis Take 10 mg by mouth daily. Indications: seasonal runny nose EPINEPHrine (EPIPEN) 0.3 mg/0.3 mL Inj Auto-Injector Inject 0.3 mL into the muscle as needed for Anaphylaxis. 2 Each 04/10/2024 gabapentin (NEURONTIN) 400 mg Oral Capsule TAKE 1 CAPSULE BY MOUTH 3 TIMES DAILY FOR 90 DAYS. 90 Capsule 2 11/14/2024 hydroxychloroquin e (PLAQUENIL) 200 mg Oral TabletIndications [...] for Muscle spasms. 30 Tablet 2024 documented as of this encounter Discharge Disposition Disposition Code Departure Means Destination Comment s Home or Self Intermediate documented in this encounter Progress Notes * Chuy Peck RN - 11/17/2024 5:[address] Rossi, EEG called and voicemail left to notify that EEG was completed and d/c. * Anastasia Bustamante RN - 11/17/2024 5:39 PM EDT In to patients room to discharge. Pt had already removed the EEG monitor from her head. Pt and pt'sdaughter both adamant that they are leaving and will follow up outpatient. Per Dr. Rossi, ok to cancel MRI order. D/c and follow-up instructions reviewed with pt and daughter, verbalized understanding. 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 TSH ordered * Alfonzo Cormier MD - 11/17/2024 10:25 AM EDTAssociated Problem(s): Class 3 severe obesity due to excess calories with body mass index (BMI) of 60.0 to 69.9 in adult Complicates all issues * Loretta Sharma RRT - 11/17/2024 8:56 AM EDT Respiratory Therapy Adult Patient Assessment Scoring Adult Patient Assessment Scoring Pulmonary Status: Chronic COPD/Asthma Chest X-ray: Clear or not indicates Respiratory Pattern: Regular RR 12-20 Breath Sounds: Clear to auscultation Cough Effectiveness: Strong spontaneous, non-productive Oxygen required to keep SpO2 > or equal to 90: No oxygen use or baseline home use Score: 2 Score 0-4 = No medications indicated or place patient on home regimen Score 5-8 = Patient meets criteria for PRN or Home Regimen Score 9-15 = Patient meets criteria for QID & PRN Score > or equal to 16 = Patient meets criteria for Q6 & PRN patient states takes breathing tc prn at home * Mark Mitchell RN - 11/17/2024 12:00 AM EDT Patient arrived on unit and 4 Eyes Skin Assessment within 4 hours completed with Marbella Adames Score: 19 Devices Removed/ Reapplied for Skin Assessment No Wound Present of Arrival: Yes No - Yes Explain: No Wound LDAs None Initiate prevention protocol and No prevention protocol needed Dietary Orders Ordered 75 Gram Consistent Carbohydrate, Cardiac Diet DIET EFFECTIVE NOW 11/17/24 0044 Comments: No * Aracely Anderson MD - 11/16/2024 11:59 PM EDT Rapid Response Note Rapid called for shaking. Patient admitted from [facility] for seizure like activity . Patient reports that she developed shaking in arms, legs, and head on morning of admission. She reports associated headache. She reports history of migraine headache. She reports having shaking in bilateral arms, legs, and head in the [facility] ED, just as she is now. She is able to speak normally during this. On exam, alert, oriented to person, place, time. Speech is normal. Symmetrical face.PERRL, EOMI. Strength 5/5 and sensation intact in bilateral UE and LE. When asked to perform neurologic tests, tremor appears to improve greatly/resolve. As discussion and examination continued, tremor continued to improve. Reviewed records from OSH ED sent with patient. CT head and CTA HN radiologist reads reviewed. Examination and history not consistent with tonic-clonic seizure. Possible PNES.Patient still having some mild shaking at rest, which appears to make her feel uncomfortable. Will give one time dose of Ativan. Check CBC, BMP, lactic. Continue to monitor. Neurology to see in the morning. Patient left in stable condition on TCU. Total critical care time spent taking care of this patient with life threatening and unstable organ(s) failure, including direct patient contact,review of data including imaging and labs, discussionswith the other team members: 35 min. Aracely Anderson MD documented in this encounter H&P Notes * Alfonzo Cormier MD - 11/17/2024 10:22 AM EDT Images from the original note were not included. History and Physical Name: Gisela Kennedy : 1975 AGE: 49 y.o. PCP: Abdulkadir Montoya MD Admitting Physician: Alfonzo Cormier MD Date of Admit: 11/16/2024 Chief Complaint: ? Seizures History of Present Illness: admitted from OSH due to events last 24 hours of abnormal involuntary movements- associated w posterior headache that is not her usual headache - has hx of migraines 4x a year. Feels at baseline today. PT seen w neurologist in room today Gisela Kennedy is a 49 y.o. female Past Medical History: Diagnosis Date Allergy Anemia [...] DEFORMITY CALCANEUS; Surgeon: Parveen Marsh MD; Location: ED MAIN OR; Service: Orthopedics APPENDECTOMY BACK SURGERY laminectomy, discectomy SECTION CHOLECYSTECTOMY, LAPAROSCOPIC 06/18/2012 LAPAROSCOPIC CHOLECYSTECTOMY ; Surgeon: Faith Navas MD; Location: [facility] MAIN OR; Service: General CYSTOCELE REPAIR N/A 04/04/2024 Anterior Repair; Posterior Repair; Placement of Retropubic Midurethral Mesh Sling; Cystoscopy; Surgeon: Elmira Mendoza MD; Location: [facility] MAIN OR; Service: Gynecology DENTAL SURGERY 01/29/2013 premolar DILATION AND CURETTAGE OF UTERUS ENDOMETRIAL ABLATION N/A 07/29/2015 Surgeon: Manuel Moran MD; Location: [facility] MAIN OR; Service: Gynecology HYSTERECTOMY Left 08/11/2020 ROBOTIC ASSISTED TOTAL LAPAROSCOPIC HYSTERECTOMY LEFT OOPHORECTOMY ; Surgeon: Beverly Hernandez DO; Location: [facility] MAIN OR; Service: Gynecology HYSTEROSCOPY August LAPAROSCOPY Right 07/29/2015 DAVINCI ROBOTIC ASSISTED LAPAROSCOPY BILATERAL SALPINGECTOMY, RIGHT OOPHERECTOMY WITH DILATION AND CURETTAGE HYSTEROSCOPY ABLATION WITH NOVASURE; Surgeon: Manuel Moran MD; Location: [facility] MAIN OR; Service: Gynecology LUMBAR DISC SURGERY Bilateral 03/11/2016 LUMBAR LAMINECTOMY AND DISCECTOMY LEFT L5/S1 ; Surgeon: Ramesh Garcia MD; Location: ED MAIN OR; Service: Neurosurgery OVARY REMOVAL Right SHOULDER ARTHROSCOPY Right 02/04/2013 RIGHT SHOULDER ARTHROSCOPY, ROTATOR CUFF REPAIR, SUBACROMIAL DECOMPRESSION, MACARIO, DEBRIDEMENT ; Surgeon: Kendall Garcia MD; Location: [facility] MAIN OR; Service: Orthopedics SHOULDER SURGERY SOFT TISSUE BIOPSY N/A 03/29/2016 INCISION AND DRAINAGE LUMBAR WOUND; Surgeon: Ramesh Garcia MD; Location: ED MAIN OR; Service: Neurosurgery SPINE SURGERY TONSILLECTOMY TUBAL LIGATION URETHROPEXY N/A 04/04/2024 .; Surgeon: Elmira Mendoza MD; Location: [facility] MAIN OR; Service: Gynecology Allergies Allergen Reactions Amoxil [Amoxicillin] Anaphylaxis Reaction to Augmentin, but patient concerned about taking Amoxil. Augmentin [Amoxicillin-Pot Clavulanate] Anaphylaxis Cefazolin Itching and Rash Pt also had an asthma attack Metronidazole Shortness Of Breath and Myalgia Relafen [Nabumetone] Rash Social History Socioeconomic History Marital status: Tobacco Use Smoking status: Former Current packs/day: 0.00 Average packs/day: 0.5 packs/day for 24.0 years (12.0 ttl pk-yrs) Types: Cigarettes Start date: 01/22/1991 Quit date: 01/22/1999 Years since quittin.8 Passive exposure: Past Smokeless tobacco: Never Vaping Use Vaping status: Never Used Substance and Sexual Activity Alcohol use: No Drug use: No Sexual activity: Yes Partners: Male control/protection: Surgical Comment: hysterectomy 08/11 Social Drivers of Health Financial Resource Strain: Low Risk (04/04/2023) Overall Financial Resource Strain (CARDIA) Difficulty of Paying Living Expenses: Not hard at all Food Insecurity: No Food Insecurity (04/04/2023) Hunger Vital Sign Worried About Running Out of Food in the Last Year: Never true Ran Out of Food in the Last Year: Never true Transportation Needs: No Transportation Needs (04/04/2023) PRAPARE - Transportation Lack of Transportation (Medical): No Lack of Transportation (Non-Medical): No Physical Activity: Inactive (04/04/2023) Exercise Vital Sign Days of Exercise per Week: 0 days Minutes of Exercise per Session: 0 min Stress: No Stress Concern Present (04/06/2023) [employer] [employer] Occupational Health - Occupational Stress Questionnaire Feeling of Stress : Not at all Family History Problem Relation Age of Onset [...] Pressure Paternal Uncle Anesth Problems Neg Hx Medications Prior to Admission Medication Sig Dispense Refill Last Dose/Taking acetaminophen (TYLENOL) 500 mg Oral Tablet Take 1 Tablet by mouth every 6 hours as needed for Pain for up to 30 days. 30 Tablet 0 11/15/2024 albuterol-budesonide (AIRSUPRA) 90-80 mcg/actuation Inhl HFA Aerosol Inhaler Inhale 2 Puffs into the lungs every 6 hours as needed. 10.7 g 1 Taking albuterol-ipratropium (DUO-NEB) 0.5 mg-3 mg(2.5 mg base)/3 mL Inhl Solution for Nebulization Take 3mL by nebulization 0800, 1200, 1600, 2000. 60 Each 0 Taking EPINEPHrine (EPIPEN) 0.3 mg/0.3 mL Inj Auto-Injector Inject 0.3 mL into the muscle as needed for Anaphylaxis. 2 Each 0 Taking gabapentin (NEURONTIN) 400 mg Oral Capsule TAKE 1 CAPSULE BY MOUTH 3 TIMES DAILY FOR 90 DAYS. 90 Capsule 2 Taking hydroxychloroquine (PLAQUENIL) 200 mg Oral Tablet TAKE 1 TABLET BY MOUTH EVERY DAY 30 Tablet 5 11/16/2024 Morning LEVOthyroxine (SYNTHROID) 175 mcg Oral Tablet Take 1 Tablet by mouth daily. 11/16/2024 Morning omeprazole (PRILOSEC) 40 mg Oral Capsule, Delayed Release(E.C.) Take 1 Capsule by mouth daily. 90 Capsule 3 11/15/2024 Bedtime PARoxetine (PAXIL) 20 mg Oral Tablet TAKE 1 TABLET BY MOUTH EVERY DAY 30 Tablet 0 11/16/2024 rOPINIRole (REQUIP) 1 mg Oral Tablet TAKE 1 TABLET BY MOUTH EVERY DAY AT NIGHT 90 Tablet 1 Taking Bedtime tiZANidine (ZANAFLEX) 4 mg Oral Tablet Take 1 Tablet by mouth nightly as needed for Muscle spasms. 30 Tablet 0 11/15/2024 Bedtime Fwryqtkxevnaqnt-Wbqmisdao-VV 2-30-10 mg/5 mL Oral Syrup Take 10 mL by mouth every 4 hours as needed(Cough, Nasal Congestion, Allergies). (Patient not taking: Reported on 11/16/2024) 240 mL 1 Not Taking cetirizine (ZYRTEC) 10 mg Oral Tablet Take 10 mg by mouth daily. Indications: seasonal runny nose COLLAGEN MISC 2 Tablets by [employer].(Non-Drug; Combo Route) route daily. Collagen Peptide Multivitamin docusate sodium (COLACE) 100 mg Oral Capsule Take 1 Capsule by mouth 2 times daily. (Patient takingdifferently: Take 100 mg by mouth as needed.) 60 Capsule 2 fUROsemide (LASIX) 40 mg Oral Tablet TAKE 1 TABLET BY MOUTH EVERY DAY (Patient not taking: Reportedon 11/16/2024) 30 Tablet 0 Not Taking ibuprofen (ADVIL;MOTRIN) 800 mg Oral Tablet Take 1 Tablet by mouth every 6 hours as needed. 40 Tablet 0 ibuprofen (ADVIL;MOTRIN) 600 mg Oral Tablet Take 1 Tablet by mouth every 6 hours as needed for Pain. 60 Tablet 1 meloxicam (MOBIC) 15 mg Oral Tablet TAKE 1 TABLET BY MOUTH EVERY DAY (Patient not taking: Reported on 11/16/2024) 30 Tablet 2 Not Taking methocarbamoL (ROBAXIN) 750 mg Oral Tablet Take 1 Tablet by mouth 3 times daily as needed for Pain for up to 30 days. (Patient not taking: Reported on 11/16/2024) 20 Tablet 0 Not Taking methylPREDNISolone (MEDROL DOSPACK) 4 mg Oral Tablets, Dose Pack See package instructions (Patient not taking: Reported on 11/16/2024) 21 Tablet 0 Not Taking Review of Systems: The listed systems were reviewed and reveal the following in addition to any already discussed in the HPI: Constitutional: No fever, chills, or weight loss. Eyes: No visual disturbance. HENT: No headache, hearing loss, epistaxis, sore throat. Respiratory: No SOB, cough, hemoptysis or pleuritic chest pain. Cardiovascular: No chest pain, PND or orthopnea, no palpitations. Endocrine: No polyuria, polydypsia, or polyphagia. GI: No abdominal pain, nausea, vomiting, diarrhea, melena or hematochezia. : No dysuria, frequency, hesitancy, or hematuria Musculoskeletal: No myalgias or muscle weakness. Neurologic: No focal numbness or weakness. Skin: No edema, jaundice, or skin discoloration. Psychiatric: No depression, homicidal or suicidal ideation. Hematologic/Allergic: No history of blood clots, bleeding or easy bruising. OBJECTIVE: Physical Exam: Vitals: 11/17/24 0904 BP: 132/74 Pulse: 82 Resp: 18 Temp: 98.8 ??F (37.1 ??C) SpO2: 97% Weight: (!) 364 lb 14.4 oz (165.5 kg) Constitutional: No acute distress. Eyes: PERRL, conjunctiva normal. HENT: Atraumatic,mouth moist. Neck: normal range of motion, no tenderness, supple, no JVD. Respiratory: No respiratory distress, normal breath sounds, no rales, no wheezing. Cardiovascular: Normal rate, normal rhythm, no murmurs, no gallops, no rubs. Abdomen: Soft, nondistended, non tender,no rebound. Bowel sounds are present. Musculoskeletal: No edema, no tenderness, no deformities. Integument: Well hydrated, no rash, no jaundice. Neurologic: Alert, awake oriented x 3. No gross focal deficits noted. Psychiatric: Speech and behavior appropriate. Labs: Labs: CBC: Lab Results Component Value Date WBC 6.9 11/17/2024 RBC 4.36 11/17/2024 HGB 11.5 11/17/2024 HCT 35.7 11/17/2024 MCV 81.9 11/17/2024 MCHC 32.2 11/17/2024 PLT 198 11/17/2024 BMP: Lab Results Component Value Date NA 144 11/17/2024 K 3.7 11/17/2024 CL 111 (H) 11/17/2024 CO2 21 (L) 11/17/2024 BUN 9 11/17/2024 CREATININE 0.82 11/17/2024 CALCIUM 8.6 11/17/2024 GLU 90 11/17/2024 Hepatic: Lab Results Component Value Date ALKPHOS 97 11/17/2024 ALT 21 11/17/2024 AST 24 11/17/2024 PROT 6.3 (L) 11/17/2024 LABBILI 0.4 11/17/[address] reviewed Assessment & Plan Seizure-like activity (HCC) Seen and discussed w neurologist -EEG here -suspect psychogenic -Likely will marcelino OP CBT for this issue 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 documented in this encounter Consult Notes * Ben Rossi MD - 11/17/2024 9:37 AM EDTAssociated Order(s): Inpatient consult to Neurology Seizures Inpatient consult to Neurology Seizures Consult performed by: Ben Rossi MD Consult ordered by: Aracely Anderson MD Neurology Consult Note Admit date: 11/16/2024 Current Length of stay: 1 day(s) Chief Complaint: Seizure like activity Requesting Provider: Aracely Anderson MD History of Presenting Illness This is a 49 y.o. female with history of migraine, ?SLE, Conchis's who I am seeing in neurologic consultation for evaluation of shaking spells. These spells started abruptly yesterday when out with her grandchildren. She developed some twitching of her eyelids that became very rapid. This lasted for a while and then she developed some tremulousness of her arms and then of her legs. She was awake through this whole episode and it lasted at least 30 minutes. Family called EMS and it continued when she got to the hospital before slowly resolving. It recurred a couple of times so far in the hospital. She can hear others around her during the episode but there are points where she cannot respond. She has never had these episodes before. Cannot identify any triggers. She has a video of one of the episodes on her phone from a family member. She is lying with eyes closed and rapidly turning her head horizontally from side to side. The rest of the body cannot be seen well on the video. Seizure risk factors: No history of prematurity, childhood seizures, febrile seizures, traumatic head injury with loss ofconsciousness, meningitis/encephalitis, or stroke. She has prior notes from rheumatology but I am uncertain if she carries a formal diagnosis of SLE. She says her PCP has taken over that care and she is being treated for lupus. ROS: Constitutional: Negative for chills, fever and malaise/fatigue. HENT: No congestion or nasal discharge Eyes: No blurry or double vision. Respiratory: Negative for cough, shortness of breath and wheezing. Cardiovascular: Negative for chest pain, claudication and leg swelling. Gastrointestinal: Negative for abdominal pain, nausea and vomiting. Genitourinary: No pain or increased frequency with urination. Musculoskeletal: No joint pain or swelling. Skin: No new rashes or lesions Neurological: As discussed above Endo/Heme/Allergies: No new bruising or bleeding. Psychiatric/Behavioral: No reported issues with depression or anxiety. No diagnosis of PTSD. Past Medical/ Surgical History Past Medical History: Diagnosis Date Allergy Anemia [...] Urinary incontinence Urinary tract infection not current Active Hospital Problems Diagnosis *Seizure-like activity (HCC) Class 3 severe obesity due to excess calories with body mass index (BMI) of 60.0 to 69.9 in adult 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 Past Surgical History: Procedure Laterality Date ACHILLES TENDON SURGERY Left 09/28/2018 LEFT ACHILIES TENDON RECONSTRUCTION WITH EXCISION 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; Surgeon: Parveen Marsh MD; Location: [facility] MAIN OR; Service: Orthopedics APPENDECTOMY BACK SURGERY laminectomy, discectomy SECTION CHOLECYSTECTOMY, LAPAROSCOPIC 06/18/2012 LAPAROSCOPIC CHOLECYSTECTOMY ; Surgeon: Faith Navas MD; Location: [facility] MAIN OR; Service: General CYSTOCELE REPAIR N/A 04/04/2024 Anterior Repair; Posterior Repair; Placement of Retropubic Midurethral Mesh Sling; Cystoscopy; Surgeon: Elmira Mendoza MD; Location: [facility] MAIN OR; Service: Gynecology DENTAL SURGERY 01/29/2013 premolar DILATION AND CURETTAGE OF UTERUS ENDOMETRIAL ABLATION N/A 07/29/2015 Surgeon: Manuel Moran MD; Location: [facility] MAIN OR; Service: Gynecology HYSTERECTOMY Left 08/11/2020 ROBOTIC ASSISTED TOTAL LAPAROSCOPIC HYSTERECTOMY LEFT OOPHORECTOMY ; Surgeon: Beverly Hernandez DO; Location: [facility] MAIN OR; Service: Gynecology HYSTEROSCOPY August LAPAROSCOPY Right 07/29/2015 [facility]INCI ROBOTIC ASSISTED LAPAROSCOPY BILATERAL SALPINGECTOMY, RIGHT OOPHERECTOMY WITH DILATION AND CURETTAGE HYSTEROSCOPY ABLATION WITH NOVASURE; Surgeon: Manuel Moran MD; Location: [facility] MAIN OR; Service: Gynecology LUMBAR DISC SURGERY Bilateral 03/11/2016 LUMBAR LAMINECTOMY AND DISCECTOMY LEFT L5/S1 ; Surgeon: Ramesh Garcia MD; Location: [facility] MAIN OR; Service: Neurosurgery OVARY REMOVAL Right SHOULDER ARTHROSCOPY Right 02/04/2013 RIGHT SHOULDER ARTHROSCOPY, ROTATOR CUFF REPAIR, SUBACROMIAL DECOMPRESSION, MACARIO, DEBRIDEMENT ; Surgeon: Kendall Garcia MD; Location: [facility] MAIN OR; Service: Orthopedics SHOULDER SURGERY SOFT TISSUE BIOPSY N/A 03/29/2016 INCISION AND DRAINAGE LUMBAR WOUND; Surgeon: Ramesh Garcia MD; Location: [facility] MAIN OR; Service: Neurosurgery SPINE SURGERY TONSILLECTOMY TUBAL LIGATION URETHROPEXY N/A 04/04/2024 .; Surgeon: Elmira Mendoza MD; Location: [facility] MAIN OR; Service: Gynecology Medications No current facility-administered medications on file prior to encounter. Current Outpatient Medications on File Prior to Encounter Medication Sig Dispense Refill acetaminophen (TYLENOL) 500 mg Oral Tablet Take 1 Tablet by mouth every 6 hours as needed for Pain for up to 30 days. 30 Tablet 0 albuterol-budesonide (AIRSUPRA) 90-80 mcg/actuation Inhl HFA Aerosol Inhaler Inhale 2 Puffs into the lungs every 6 hours as needed. 10.7 g 1 albuterol-ipratropium (DUO-NEB) 0.5 mg-3 mg(2.5 mg base)/3 mL Inhl Solution for Nebulization Take 3mL by nebulization 0800, 1200, 1600, 2000. 60 Each 0 EPINEPHrine (EPIPEN) 0.3 mg/0.3 mL Inj Auto-Injector Inject 0.3 mL into the muscle as needed for Anaphylaxis. 2 Each 0 gabapentin (NEURONTIN) 400 mg Oral Capsule TAKE 1 CAPSULE BY MOUTH 3 TIMES DAILY FOR 90 DAYS. 90 Capsule 2 hydroxychloroquine (PLAQUENIL) 200 mg Oral Tablet TAKE 1 TABLET BY MOUTH EVERY DAY 30 Tablet 5 LEVOthyroxine (SYNTHROID) 175 mcg Oral Tablet Take 1 Tablet by mouth daily. omeprazole (PRILOSEC) 40 mg Oral Capsule, Delayed Release(E.C.) Take 1 Capsule by mouth daily. 90 Capsule 3 PARoxetine (PAXIL) 20 mg Oral Tablet TAKE 1 TABLET BY MOUTH EVERY DAY 30 Tablet 0 rOPINIRole (REQUIP) 1 mg Oral Tablet TAKE 1 TABLET BY MOUTH EVERY DAY AT NIGHT 90 Tablet 1 tiZANidine (ZANAFLEX) 4 mg Oral Tablet Take 1 Tablet by mouth nightly as needed for Muscle spasms. 30 Tablet 0 Pmxbkpkosnahucn-Kzfyhtgsn-WK 2-30-10 mg/5 mL Oral Syrup Take 10 mL by mouth every 4 hours as needed(Cough, Nasal Congestion, Allergies). (Patient not taking: Reported on 11/16/2024) 240 mL 1 cetirizine (ZYRTEC) 10 mg Oral Tablet Take 10 mg by mouth daily. Indications: seasonal runny nose COLLAGEN MISC 2 Tablets by Misc.(Non-Drug; Combo Route) route daily. Collagen Peptide Multivitamin docusate sodium (COLACE) 100 mg Oral Capsule Take 1 Capsule by mouth 2 times daily. (Patient takingdifferently: Take 100 mg by mouth as needed.) 60 Capsule 2 fUROsemide (LASIX) 40 mg Oral Tablet TAKE 1 TABLET BY MOUTH EVERY DAY (Patient not taking: Reportedon 11/16/2024) 30 Tablet 0 ibuprofen (ADVIL;MOTRIN) 800 mg Oral Tablet Take 1 Tablet by mouth every 6 hours as needed. 40 Tablet 0 ibuprofen (ADVIL;MOTRIN) 600 mg Oral Tablet Take 1 Tablet by mouth every 6 hours as needed for Pain. 60 Tablet 1 meloxicam (MOBIC) 15 mg Oral Tablet TAKE 1 TABLET BY MOUTH EVERY DAY (Patient not taking: Reported on 11/16/2024) 30 Tablet 2 methocarbamoL (ROBAXIN) 750 mg Oral Tablet Take 1 Tablet by mouth 3 times daily as needed for Pain for up to 30 days. (Patient not taking: Reported on 11/16/2024) 20 Tablet 0 methylPREDNISolone (MEDROL DOSPACK) 4 mg Oral Tablets, Dose Pack See package instructions (Patient not taking: Reported on 11/16/2024) 21 Tablet 0 Scheduled Meds: diazePAM 2.5 mg Intravenous Once enoxaparin 40 mg Subcutaneous 2 times per day gabapentin 400 mg Oral TID hydroxychloroquine 200 mg Oral Daily LEVOthyroxine 175 mcg Oral DAILY EARLY AM loratadine 10 mg Oral Daily miconazole Topical BID pantoprazole 40 mg Oral Daily PARoxetine 20 mg Oral Daily rOPINIRole 1 mg Oral Nightly Continuous Infusions: PRN Meds:.acetaminophen, albuterol OR albuterol, aluminum & magnesium hydroxide-simethicone, melatonin, ondansetron OR ondansetron, senna, tiZANidine Allergies Allergen Reactions Amoxil [Amoxicillin] Anaphylaxis Reaction to Augmentin, but patient concerned about taking Amoxil. Augmentin [Amoxicillin-Pot Clavulanate] Anaphylaxis Cefazolin Itching and Rash Pt also had an asthma attack Metronidazole Shortness Of Breath and Myalgia Relafen [Nabumetone] Rash Family History Family History Problem Relation Age of Onset [...] Pressure Paternal Uncle Anesth Problems Neg Hx Son had PTSD related shaking episodes when he was younger. Social History Social History Tobacco Use Smoking status: Former Current packs/day: 0.00 Average packs/day: 0.5 packs/day for 24.0 years (12.0 ttl pk-yrs) Types: Cigarettes Start date: 01/22/1991 Quit date: 01/22/1999 Years since quittin.8 Passive exposure: Past Smokeless tobacco: Never Substance Use Topics Alcohol use: No Physical Examination: Reviewed vitals trend over past 24 hours General Appearance: This is a well appearing patient, not in distress. Obese. HEENT: There are no facial dysmorphic features. SKIN: There is no stigmata for neurocutaneous disorders. Lungs: Nonlaboured breathing, symmetric chest expansion Heart: No central or peripheral cyanosis NEUROLOGICAL EXAMINATION: MENTAL STATUS: Alert and oriented to person, hospital, city, month, year. Follows 1 and 2 step commands. CORTEX: Speech fluent and without anomia or paraphasic errors. No difficulty with naming or repetition. No neglect. Affect normal. CRANIAL NERVES: Visual weeks intact. Pupils 4mm, equal and reactive to light bilaterally. EOMI. Face symmetric. Sensation intact. Palate elevates equally bilaterally, tongue midline. MOTOR: Strength: RUE: 5/5, RLE: 5/5, LUE: 5/5, LLE: 5/5. Tone is normal, bulk is symmetric. SENSORY: Intact to light touch. REFLEXES: 1+ throughout, no Oleary's, no clonus COORDINATION: Finger to nose testing with no dysmetria. Rapid alternating movements symmetric. Results: Personally reviewed the following: No imaging to review in our system. OSH CT Head with no reported acute findings. No LVO reported onCTA. Reviewed lab trends since admission. Relevant labs: CBC/CMP unremarkable She had EMGs in 2016 and in 2017 that were both normal. Impression and Plan # Suspected psychogenic nonepileptic spells # Possible SLE Had abrupt onset of these episodes and has had three dramatic events so far. Saw part of one event on video and it was characterized by rapid horizontal head shaking with eye closure. She is somewhataware of her surroundings during these episodes but cannot respond. The reported history and the semiology observed on the video recording is most consistent with psychogenic, nonepileptic spells. I have very low suspicion of seizure in this setting, but ideally we would capture one of these typical events on EEG for a definitive diagnosis. Plan: - cEEG today for spell capture. If we cannot capture a spell in 24 hours, I think we can likely stop the EEG. - Had a long discussion about PNES in the presence of mother and daughter on the phone. - Referral for cognitive behavioral therapy at [facility] or close to home at discharge. - No antiseizure medication for now. If there is concern for a seizure, please page for EEG review.PRN lorazepam only for a convulsion lasting 3 minutes or longer. ADDENDUM: Patient has had multiple typical spells of head shaking and eye fluttering with unresponsiveness while on EEG. There is no abnormal electrographic correlate on EEG. This is diagnostic of psychogenic nonepileptic spells. I am okay with discharge and follow up with behavioral health. She does not necessarily need neurology follow up but is certainly welcome to follow up PRN if issues arise. Neurology Disposition- Will Sign off?: No Anticipated discharge timeframe?: Tomorrow Discharge when / if?: After EEG. Attempt spell capture. Thank you for the opportunity to participate in the care of Gisela Kennedy . Please do not hesitate to call with further questions or concerns. Ben Rossi MD Neurology documented in this encounter Miscellaneous Notes * Utilization Review Notes - Shasha Lux RN - 11/17/2024 12:16 PM EDT Images from the original note were not included. Initial Review - Patient admitted inpatient to TCU on 11/16/24. IP order is on the chart. Seizure ORG: M-[id number] (ISC) Admission is indicated for 1 or more of the following: Recurrent seizure (ie, during emergency department or observation care) and 1 or more of the following(13)(14): Patient not known to have seizure disorder(9) Medication initiation or adjustment that requires monitoring beyond observation care[B](3)(9)(13)(16) VITALS: VSS, afebrile, 97% on room air MEDS: Valium IV x 1 dose, Ativan PO x 1 dose ORDERS: Neurology and PT consult, cardiac monitoring NOTES: MD note 11/17/24 Seizure-like activity (HCC) Seen and discussed w neurologist -EEG here -suspect psychogenic -Likely will marcelino OP CBT for this issue DC PLAN: CC following documented in this encounter Plan of Treatment Upcoming Encounters Date Type Department Care Team (Late st Contact Info) Description 11/27/2024 8:00 AM EDT Appointment [facility] [place] [facility] [address] [place] [address] Abdulkadir Montoya MD [address] [place] [phone] 02/10/2025 1:30 PM EDT Office Visit [facility] [place] [address] [facility] [address] [place] [phone] Judith Lomax MD [address] [facility] [address] [place] [phone] documented as of this encounter Goals Goal Patient Goal Type Associated Problems Recent Progress Patient-Stated? Author Eat better, exercise, reach an ideal body weight General No Rula Birch CCMA Stay Tobacco Free Lifestyle No Rula Birch CCMA documented as of this encounter Procedures Procedure Name Priority Date/Time Associated Diagnosis Comments EEG LTM UNATTENDED EACH 2-12 HOURS Routine 11/17/2024 6:32 PM EDT ADMIT Routine 11/17/2024 12:31 PM EDT ECG AND WAVEFORMS - TELEMETRY Routine 11/17/2024 8:35 AM EDT CBC WITH DIFF Routine 11/17/2024 1:15 AM EDT LACTIC ACID Routine 11/17/2024 1:15 AM EDT BASIC METABOLIC PANEL Routine 11/17/2024 1:15 AM EDT IP CONSULT TO NEUROLOGY STAT 11/17/2024 12:31 AM EDT Procedure Note - Ben Rosis MD - 11/17/2024 9:37 AM EDTThis note is in progress. Inpatient consult to Neurology Seizures Consult performed by: Ben Rossi MD Consult ordered by: Aracely Anderson MD Neurology Consult Note Admit date: 11/16/2024 Current Length of stay: 1 day(s) Chief Complaint: Seizure like activity Requesting Provider: Aracely Anderson MD History of Presenting Illness This is a 49 y.o. female with history of migraine, ?SLE, Conchis's who David seeing in neurologic consultation for evaluation of shaking spells. These spells started abruptly yesterday when out with her grandchildren.She developed some twitching of her eyelids that became very rapid. Thislasted for a while and then she developed some tremulousness of her armsand then of her legs. She was awake through this whole episode and itlasted at least 30 minutes. Family called EMS and it continued when shegot to the hospital before slowly resolving. It recurred a couple of timesso far in the hospital. She can hear others around her during the episodebut there are points where she cannot respond. She has never had theseepisodes before. Cannot identify any triggers. She has a video of one of the episodes on her phone from a family member.She is lying with eyes closed and rapidly turning her head horizontallyfrom side to side. The rest of the body cannot be seen well on the video. Seizure risk factors: No history of prematurity, childhood seizures, febrile seizures, traumatichead injury with loss of consciousness, meningitis/encephalitis, orstroke. She has prior notes from rheumatology but I am uncertain if she carries aformal diagnosis of SLE. She says her PCP has taken over that care and sheis being treated for lupus. ROS: Constitutional: Negative for chills, fever and malaise/fatigue. HENT: No congestion or nasal discharge Eyes: No blurry or double vision. Respiratory: Negative for cough, shortness of breath and wheezing. Cardiovascular: Negative for chest pain, claudication and leg swelling. Gastrointestinal: Negative for abdominal pain, nausea and vomiting. Genitourinary: No pain or increased frequency with urination. Musculoskeletal: No joint pain or swelling. Skin: No new rashes or lesions Neurological: As discussed above Endo/Heme/Allergies: No new bruising or bleeding. Psychiatric/Behavioral: No reported issues with depression or anxiety. Nodiagnosis of PTSD. Past Medical/ Surgical History Past Medical History: Diagnosis Date Allergy Anemia [...] Systemic lupus erythematosus with organ system involvement (HCC)01/08/2024 Thyroid disease Urinary incontinence Urinary tract infection not current Active Hospital Problems Diagnosis *Seizure-like activity (HCC) Class 3 severe obesity due to excess calories with body mass index (BMI)of 60.0 to 69.9 in adult 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 Past Surgical History: Procedure Laterality Date ACHILLES TENDON SURGERY Left 09/28/2018 LEFT ACHILIES TENDON RECONSTRUCTION WITH EXCISION YO'S DEFORMITYCALCANEUS; Surgeon: Parveen Marsh MD; Location: [facility] MAIN OR; Service:Orthopedics APPENDECTOMY BACK SURGERY laminectomy, discectomy SECTION CHOLECYSTECTOMY, LAPAROSCOPIC 06/18/2012 LAPAROSCOPIC CHOLECYSTECTOMY ; Surgeon: Faith Navas MD; Location:[facility] MAIN OR; Service: General CYSTOCELE REPAIR N/A 04/04/2024 Anterior Repair; Posterior Repair; Placement of Retropubic MidurethralMesh Sling; Cystoscopy; Surgeon: Elmira Mendoza MD; Location:[facility] MAIN OR; Service: Gynecology DENTAL SURGERY 01/29/2013 premolar DILATION AND CURETTAGE OF UTERUS ENDOMETRIAL ABLATION N/A 07/29/2015 Surgeon: Manuel Moran MD; Location: [facility] MAIN OR; Service: Gynecology HYSTERECTOMY Left 08/11/2020 ROBOTIC ASSISTED TOTAL LAPAROSCOPIC HYSTERECTOMY LEFT OOPHORECTOMY ;Surgeon: Beverly Hernandez DO; Location: [facility] MAIN OR; Service:Gynecology HYSTEROSCOPY August LAPAROSCOPY Right 07/29/2015 [facility] ROBOTIC ASSISTED LAPAROSCOPY BILATERAL SALPINGECTOMY, RIGHTOOPHERECTOMY WITH DILATION AND CURETTAGE HYSTEROSCOPY ABLATION WITHNOVASURE; Surgeon: Manuel Moran MD; Location: [facility] MAIN OR; Service:Gynecology LUMBAR DISC SURGERY Bilateral 03/11/2016 LUMBAR LAMINECTOMY AND DISCECTOMY LEFT L5/S1 ; Surgeon: Yogesh Garcia MD; Location: [facility] MA[facility] OR; Service: Neurosurgery OVARY REMOVAL Right SHOULDER ARTHROSCOPY Right 02/04/2013 RIGHT SHOULDER ARTHROSCOPY, ROTATOR CUFF REPAIR, SUBACROMIALDECOMPRESSION, MACARIO, DEBRIDEMENT ; Surgeon: Kendall Garcia MD;Location: [facility] MA[facility] OR; Service: Orthopedics SHOULDER SURGERY SOFT TISSUE BIOPSY N/A 03/29/2016 INCISION AND DRAINAGE LUMBAR WOUND; Surgeon: Ramesh Garcia MD;Location: [facility] MAIN OR; Service: Neurosurgery SPINE SURGERY TONSILLECTOMY TUBAL LIGATION URETHROPEXY N/A 04/04/2024 .; Surgeon: Elmira Mendoza MD; Location: [facility] MAIN OR;Service: Gynecology Medications No current facility-administered medications on file prior to encounter. Current Outpatient Medications on File Prior to Encounter Medication Sig Dispense Refill acetaminophen (TYLENOL) 500 mg Oral Tablet Take 1 Tablet by mouth every 6hours as needed for Pain for up to 30 days. 30 Tablet 0 albuterol-budesonide (AIRSUPRA) 90-80 mcg/actuation Inhl HFA AerosolInhaler Inhale 2 Puffs into the lungs every 6 hours as needed. 10.7 g 1 albuterol-ipratropium (DUO-NEB) 0.5 mg-3 mg(2.5 mg base)/3 mL InhlSolution for Nebulization Take 3 mL by nebulization 0800, 1200, 1600,2000. 60 Each 0 EPINEPHrine (EPIPEN) 0.3 mg/0.3 mL Inj Auto-Injector Inject 0.3 mL intothe muscle as needed for Anaphylaxis. 2 Each 0 gabapentin (NEURONTIN) 400 mg Oral Capsule TAKE 1 CAPSULE BY MOUTH 3TIMES DAILY FOR 90 DAYS. 90 Capsule 2 hydroxychloroquine (PLAQUENIL) 200 mg Oral Tablet TAKE 1 TABLET BY MOUTHEVERY DAY 30 Tablet 5 LEVOthyroxine (SYNTHROID) 175 mcg Oral Tablet Take 1 Tablet by mouthdaily. omeprazole (PRILOSEC) 40 mg Oral Capsule, Delayed Release(E.C.) Take 1Capsule by mouth daily. 90 Capsule 3 PARoxetine (PAXIL) 20 mg Oral Tablet TAKE 1 TABLET BY MOUTH EVERY DAY 30Tablet 0 rOPINIRole (REQUIP) 1 mg Oral Tablet TAKE 1 TABLET BY MOUTH EVERY DAY ATNIGHT 90 Tablet 1 tiZANidine (ZANAFLEX) 4 mg Oral Tablet Take 1 Tablet by mouth nightly asneeded for Muscle spasms. 30 Tablet 0 Zcphtrdiklkonys-Addqillki-BK 2-30-10 mg/5 mL Oral Syrup Take 10 mL bymouth every 4 hours as needed (Cough, Nasal Congestion, Allergies).(Patient not taking: Reported on 11/16/2024) 240 mL 1 cetirizine (ZYRTEC) 10 mg Oral Tablet Take 10 mg by mouth daily.Indications: seasonal runny nose COLLAGEN MISC 2 Tablets by Misc.(Non-Drug; Combo Route) route daily.Collagen Peptide Multivitamin docusate sodium (COLACE) 100 mg Oral Capsule Take 1 Capsule by mouth 2times daily. (Patient taking differently: Take 100 mg by mouth as needed.)60 Capsule 2 fUROsemide (LASIX) 40 mg Oral Tablet TAKE 1 TABLET BY MOUTH EVERY DAY(Patient not taking: Reported on 11/16/2024) 30 Tablet 0 ibuprofen (ADVIL;MOTRIN) 800 mg Oral Tablet Take 1 Tablet by mouth every6 hours as needed. 40 Tablet 0 ibuprofen (ADVIL;MOTRIN) 600 mg Oral Tablet Take 1 Tablet by mouth every6 hours as needed for Pain. 60 Tablet 1 meloxicam (MOBIC) 15 mg Oral Tablet TAKE 1 TABLET BY MOUTH EVERY DAY(Patient not taking: Reported on 11/16/2024) 30 Tablet 2 methocarbamoL (ROBAXIN) 750 mg Oral Tablet Take 1 Tablet by mouth 3 timesdaily as needed for Pain for up to 30 days. (Patient not taking: Reportedon 11/16/2024) 20 Tablet 0 methylPREDNISolone (MEDROL DOSPACK) 4 mg Oral Tablets, Dose Pack Seepackage instructions (Patient not taking: Reported on 11/16/2024) 21 Tablet0 Scheduled Meds: diazePAM 2.5 mg Intravenous Once enoxaparin 40 mg Subcutaneous 2 times per day gabapentin 400 mg Oral TID hydroxychloroquine 200 mg Oral Daily LEVOthyroxine 175 mcg Oral DAILY EARLY AM loratadine 10 mg Oral Daily miconazole Topical BID pantoprazole 40 mg Oral Daily PARoxetine 20 mg Oral Daily rOPINIRole 1 mg Oral Nightly Continuous Infusions: PRN Meds:.acetaminophen, albuterol OR albuterol, aluminum & magnesiumhydroxide-simethicone, melatonin, ondansetron OR ondansetron, senna,tiZANidine Allergies Allergen Reactions Amoxil [Amoxicillin] Anaphylaxis Reaction to Augmentin, but patient concerned about taking Amoxil. Augmentin [Amoxicillin-Pot Clavulanate] Anaphylaxis Cefazolin Itching and Rash Pt also had an asthma attack Metronidazole Shortness Of Breath and Myalgia Relafen [Nabumetone] Rash Family History Family History Problem Relation Age of Onset [...] Pressure Paternal Uncle Anesth Problems Neg Hx Son had PTSD related shaking episodes when he was younger. Social History Social History Tobacco Use Smoking status: Former Current packs/day: 0.00 Average packs/day: 0.5 packs/day for 24.0 years (12.0 ttl pk-yrs) Types: Cigarettes Start date: 01/22/1991 Quit date: 01/22/1999 Years since quittin.8 Passive exposure: Past Smokeless tobacco: Never Substance Use Topics Alcohol use: No Physical Examination: Reviewed vitals trend over past 24 hours General Appearance: This is a well appearing patient, not in distress.Obese. HEENT: There are no facial dysmorphic features. SKIN: There is no stigmata for neurocutaneous disorders. Lungs: Nonlaboured breathing, symmetric chest expansion Heart: No central or peripheral cyanosis NEUROLOGICAL EXAMINATION: MENTAL STATUS: Alert and oriented to person, hospital, city, month, year.Follows 1 and 2 step commands. CORTEX: Speech fluent and without anomia or paraphasic errors. Nodifficulty with naming or repetition. No neglect. Affect normal. CRANIAL NERVES: Visual weesk intact. Pupils 4mm, equal and reactive tolight bilaterally. EOMI. Face symmetric. Sensation intact. Palate elevatesequally bilaterally, tongue midline. MOTOR: Strength: RUE: 5/5, RLE: 5/5, LUE: 5/5, LLE: 5/5. Tone is normal,bulk is symmetric. SENSORY: Intact to light touch. REFLEXES: 1+ throughout, no Oleary's, no clonus COORDINATION: Finger to nose testing with no dysmetria. Rapid alternatingmovements symmetric. Results: Personally reviewed the following: No imaging to review in our system. OSH CT Head with no reported acutefindings. No LVO reported on CTA. Reviewed lab trends since admission. Relevant labs: CBC/CMP unremarkable She had EMGs in 2016 and in 2017 that were both normal. Impression and Plan # Suspected psychogenic nonepileptic spells # Possible SLE Had abrupt onset of these episodes and has had three dramatic events sofar. Saw part of one event on video and it was characterized by rapidhorizontal head shaking with eye closure. She is somewhat aware of hersurroundings during these episodes but cannot respond. The reported history and the semiology observed on the video recording ismost consistent with psychogenic, nonepileptic spells. I have very lowsuspicion of seizure in this setting, but ideally we would capture one ofthese typical events on EEG for a definitive diagnosis. Plan: - cEEG today for spell capture. If we cannot capture a spell in 24 hours,I think we can likely stop the EEG. - Had a long discussion about PNES in the presence of mother and daughteron the phone. - [facility] at discharge. - No antiseizure medication for now. If there is concern for a seizure,please page for EEG review. PRN lorazepam only for a convulsion lasting 3minutes or longer. ADDENDUM: Patient has had multiple typical spells of head shaking and eye flutteringwith unresponsiveness while on EEG. There is no abnormal electrographiccorrelate on EEG. This is diagnostic of psychogenic nonepileptic spells. David okay with discharge and follow up with behavioral health. She does notnecessarily need neurology follow up but is certainly welcome to follow upPRN if issues arise. Neurology Disposition- Will Sign off?: No Anticipated discharge timeframe?: Tomorrow Discharge when / if?: After EEG. Attempt spell capture. Thank you for the opportunity to participate in the care of Gisela Kennedy . Please do not hesitate to call with further questions orconcerns. Ben Rossi MD Neurology CBC WITH DIFF STAT 11/17/2024 12:19 AM EDT COMPREHENSIVE METABOLIC PANEL STAT 11/17/2024 12:19 AM EDT GLUCOSE METER POC Routine 11/17/2024 12:01 AM EDT ECG AND WAVEFORMS - TELEMETRY Routine 11/16/2024 9:29 PM EDT documented in this encounter Results * EEG LTM UNATTENDED EACH 2-12 HOURS (11/17/2024 6:32 PM EDT) Anatomical Region Laterality Modality Electroencephalo graphy Narrative 11/18/2024 12:48 AM EDT [facility] DEPARTMENT OF NEUROLOGY [facility] Patient: Gisela Kennedy Age: 49 y.o. Date of Recordin11/17/2024 at 1215 through 1715 Referring Provider: Ben Rossi MD History: Gisela Kennedy is a 49 y.o. F who is being evaluated for spells of shaking and abnormal extremity movements. This study was performed in order to monitor for focal or epileptiform abnormalities and assist in determination of the nature of the patient's clinical events. Gisela L Perez Marcia was not on antiseizure medications. Technical Description: This is a 21 channel digital EEG recording with time-locked video. Electrodes were placed in accordance with the 10-20 International System of Electrode Placement. Single lead EKG monitoring was included. Interictal EEG Recording: The recording was obtained during wakefulness and drowsiness. During wakefulness, the background was continuous and symmetric. There was a well sustained and well modulated posterior dominant rhythm of 9 Hz that was of normal amplitude. There was a normal frequency-amplitude gradient. During drowsiness, there were bursts of diffuse slowing and waxing and waning of the posterior dominant rhythm. Sleep was not observed. There were no focal or epileptiform abnormalities. The single lead EKG channel revealed a regular rhythm. Ictal EEG Recording or Events: During this recording, there were multiple clinical events. There were prolonged episodes of horizontal head shaking and associated rapid eyelid fluttering. The patient was reportedly unresponsive during those periods. There were also episodes of a subjective feeling of left facial spasms. None of these episodes had an abnormal electrographic correlate. Summary of EEG and Behavior: This 5-hour EEG was normal. The episodes of horizontal head shaking, eyelid fluttering, and facial spasm had no abnormal electrographic correlate. Clinical Correlation: This EEG was normal. There were no focal or epileptiform abnormalities. There were no seizures. The above-described episodes were not seizures. 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 Ben Rossi MD Neurology us Ben Rossi MD IMG EEG ORDERABLES Final Result * ECG AND WAVEFORMS - TELEMETRY (11/17/2024 8:35 AM EDT) ECG INTERPRET NSR [facility] 11/17/2024 8:35 AM EDT Narrative [facility] - 11/17/2024 8:53 AM EDT MG/ROUTINE OH 0.17 QRS 0.10 RR 0.77 QT 0.37 QTc 0.42 See Clinical Report link for waveform capture us Unknown Provider POINT OF CARE CARDIOLOGY Final Result [facility] [address] [place] [address] * LACTIC ACID (11/17/2024 1:15 AM EDT) Pathologist [facility] Lactic Acid 0.9 0.5 - 1.9 mmol/L 11/17/2024 1:39 AM EDT [facility] Blood VENOUS BLOOD / Unknown Venipuncture / Unknown 11/17/2024 1:15 AM EDT 11/17/2024 1:22 AM EDT us Aracely Anderson MD CHEMISTRY ORDERABLES Final Res ult [facility] [address] [place] [address] * (ABNORMAL) BASIC METABOLIC PANEL (11/17/2024 1:15 AM EDT) Pathologist [facility] Sodium 144 136 - 145 mmol/L 11/17/2024 1:40 AM EDT [facility] Potassium 3.7 3.5 - 5.0 mmol/L 11/17/2024 1:40 AM EDT [facility] Chloride 111(H) 98 - 107 mmol/L 11/17/2024 1:40 AM EDT [facility] Total CO2 21(L) 22 - 29 mmol/L 11/17/2024 1:40 AM EDT [facility] Anion Gap 12 7 - 16 mmol/L 11/17/2024 1:40 AM EDT [facility] Calcium 8.6 8.6 - 10.4 mg/dL 11/17/2024 1:40 AM EDT [facility] Glucose Lvl 90 70 - 99 mg/dL 11/17/2024 1:40 AM EDT [facility] BUN 9 6 - 20 mg/dL 11/17/2024 1:40 AM EDT [facility] Creatinine 0.82 0.51 - 1.30 mg/dL 11/17/2024 1:40 AM EDT [facility] eGFR (CKD-EPIcr 2020) 88 >=60 mL/min/1.7 3 m2 11/17/2024 1:40 AM EDT [facility] Comment:Estimated GFR was ca lculated using the CKD-EPIcr (2020) equation refit without race. The equation is recommended by the [employer] - [place] [employer] Neph[employer] Task Force. Blood VENOUS BLOOD / Unknown Venipuncture / Unknown 11/17/2024 1:15 AM EDT 11/17/2024 1:22 AM EDT us Aracely Anderson MD CHEMISTRY ORDERABLES Final Res ult [facility] [address] [place] [address] * CBC WITH DIFF (11/17/2024 1:15 AM EDT) WBC 6.9 3.7 - 10.3 x10(3)/mcL 11/17/2024 1:25 AM EDT [facility] RBC 4.36 3.90 - 5.20 x10(6)/mcL 11/17/2024 1:25 AM EDT [facility] Hgb 11.5 11.2 - 15.7 g/dL 11/17/2024 1:25 AM EDT [facility] Hct 35.7 34.0 - 45.0 % 11/17/2024 1:25 AM EDT [facility] MCV 81.9 80.0 - 100.0 fL 11/17/2024 1:25 AM EDT [facility] MCH 26.4 26.0 - 34.0 pg 11/17/2024 1:25 AM EDT [facility] MCHC 32.2 30.7 - 35.5 g/dL 11/17/2024 1:25 AM EDT [facility] RDW 14.7 <=14.9 % 11/17/2024 1:25 AM EDT [facility] Platelet 198 155 - 369 x10(3)/mcL 11/17/2024 1:25 AM EDT [facility] MPV 11.3 8.8 - 12.5 fL 11/17/2024 1:25 AM EDT [facility] Neut Percent 50.0 % 11/17/2024 1:25 AM EDT [facility] Comment:Neutrophils equals s egs plus bands Imm Gran% 0.1 % 11/17/2024 1:25 AM EDT [facility] Comment:Automated count of m etamyelocytes, myelocytes and promyelocytes. Lymph Percent 36.6 % 11/17/2024 1:25 AM EDT [facility] Webb Percent 9.1 % 11/17/2024 1:25 AM EDT [facility] Eos Percent 3.9 % 11/17/2024 1:25 AM EDT [facility] Baso Percent 0.3 % 11/17/2024 1:25 AM EDT [facility] Neut # 3.5 1.6 - 6.1 x10(3)/[facility] 11/17/2024 1:25 AM EDT [facility] Comment:Neutrophils equals s egs plus bands IMMGRAN# 0.0 0.0 - 0.1 x10(3)/[facility] 11/17/2024 1:25 AM EDT [facility] Comment:Automated count of m etamyelocytes, myelocytes and promyelocytes. An absolute IG <0.1 is reported as 0.0. Lymph # 2.5 1.2 - 3.9 x10(3)/[facility] 11/17/2024 1:25 AM EDT [facility] Webb # 0.6 0.3 - 0.9 x10(3)/[facility] 11/17/2024 1:25 AM EDT [facility] Eos# 0.3 0.0 - 0.5 x10(3)/[facility] 11/17/2024 1:25 AM EDT [facility] Baso # 0.0 0.0 - 0.1 x10(3)/[facility] 11/17/2024 1:25 AM [facility] Blood VENOUS BLOOD / Unknown Venipuncture / Unknown 11/17/2024 1:15 AM EDT 11/17/2024 1:22 AM EDT us Aracely Anderson MD HEMATOLOGY ORDERABLES Final Re sult [facility] [address], [place] [address] * CBC WITH DIFF (11/17/2024 12:19 AM EDT) WBC 7.4 3.7 - 10.3 x10(3)/mcL 11/17/2024 12:42 AM EDT [facility] RBC 4.50 3.90 - 5.20 x10(6)/mcL 11/17/2024 12:42 AM EDT [facility] Hgb 11.7 11.2 - 15.7 g/dL 11/17/2024 12:42 AM EDT [facility] Hct 36.8 34.0 - 45.0 % 11/17/2024 12:42 AM EDT [facility] MCV 81.8 80.0 - 100.0 fL 11/17/2024 12:42 AM EDT [facility] MCH 26.0 26.0 - 34.0 pg 11/17/2024 12:42 AM EDT [facility] MCHC 31.8 30.7 - 35.5 g/dL 11/17/2024 12:42 AM EDT [facility] RDW 14.9 <=14.9 % 11/17/2024 12:42 AM EDT [facility] Platelet 210 155 - 369 x10(3)/mcL 11/17/2024 12:42 AM EDT [facility] MPV 11.6 8.8 - 12.5 fL 11/17/2024 12:42 AM EDT [facility] Neut Percent 50.7 % 11/17/2024 12:42 AM EDT [facility] Comment:Neutrophils equals s egs plus bands Imm Gran% 0.3 % 11/17/2024 12:42 AM EDT [facility] Comment:Automated count of m etamyelocytes, myelocytes and promyelocytes. Lymph Percent 36.5 % 11/17/2024 12:42 AM EDT [facility] Webb Percent 8.9 % 11/17/2024 12:42 AM EDT [facility] Eos Percent 3.5 % 11/17/2024 12:42 AM EDT [facility] Baso Percent 0.1 % 11/17/2024 12:42 AM EDT [facility] Neut # 3.8 1.6 - 6.1 x10(3)/[facility] 11/17/2024 12:42 AM EDT [facility] Comment:Neutrophils equals s egs plus bands IMMGRAN# 0.0 0.0 - 0.1 x10(3)/[facility] 11/17/2024 12:42 AM EDT [facility] Comment:Automated count of m etamyelocytes, myelocytes and promyelocytes. An absolute IG <0.1 is reported as 0.0. Lymph # 2.7 1.2 - 3.9 x10(3)/[facility] 11/17/2024 12:42 AM EDT [facility] Webb # 0.7 0.3 - 0.9 x10(3)/[facility] 11/17/2024 12:42 AM EDT [facility] Eos# 0.3 0.0 - 0.5 x10(3)/[facility] 11/17/2024 12:42 AM EDT [facility] Baso # 0.0 0.0 - 0.1 x10(3)/[facility] 11/17/2024 12:42 AM EDT [facility] Blood VENOUS BLOOD / Unknown Venipuncture / Unknown 11/17/2024 12:19 AM EDT 11/17/2024 12:28 AM EDT us Kristin Ghotra Fitterer [employer]TONHOLE MACHINE OPERATOR HEMATOLOGY ORDERABLE S Final Result [facility] [address] [place] [address] * (ABNORMAL) COMPREHENSIVE METABOLIC PANEL (11/17/2024 12:19 AM EDT) Pathologist [facility] Sodium 145 136 - 145 mmol/L 11/17/2024 12:55 AM [facility] Potassium 3.8 3.5 - 5.0 mmol/L 11/17/2024 12:55 AM [facility] Chloride 111(H) 98 - 107 mmol/L 11/17/2024 12:55 AM [facility] Total CO2 23 22 - 29 mmol/L 11/17/2024 12:55 AM [facility] Anion Gap 11 7 - 16 mmol/L 11/17/2024 12:55 AM [facility] Calcium 8.8 8.6 - 10.4 mg/dL 11/17/2024 12:55 AM [facility] Glucose Lvl 91 70 - 99 mg/dL 11/17/2024 12:55 AM [facility] BUN 9 6 - 20 mg/dL 11/17/2024 12:55 AM [facility] Creatinine 0.84 0.51 - 1.30 mg/dL 11/17/2024 12:55 AM [facility] Albumin 3.9 3.5 - 5.2 gm/dL 11/17/2024 12:55 AM [facility] Total Protein 6.3(L) 6.4 - 8.3 gm/dL 11/17/2024 12:55 AM [facility] Bili Total 0.4 0.2 - 1.3 mg/dL 11/17/2024 12:55 AM [facility] ALT 21 <=41 U/L 11/17/2024 12:55 AM [facility] AST 24 <=40 U/L 11/17/2024 12:55 AM [facility] Alk Phos 97 36 - 123 U/L 11/17/2024 12:55 AM [facility] eGFR (CKD-EPIcr 2020) 86 >=60 mL/min/1.7 3 m2 11/17/2024 12:55 AM [facility] Comment:Estimated GFR was ca lculated using the CKD-EPIcr (2021) equation refit without race. The equation is recommended by the [employer] - [place] [employer] Neph[employer] Task Force. Blood VENOUS BLOOD / Unknown Venipuncture / Unknown 11/17/2024 12:19 AM EDT 11/17/2024 12:28 AM EDT Kristin Irvin [employer]TONHOLE MACHINE OPERATOR CHEMISTRY ORDERABLES Final Result Performing Organization Address [facility] de Phone Number [facility] [address] [place] [address] * GLUCOSE METER POC (11/17/2024 12:01 AM EDT) [facility] Signature Glucose Meter POC 88 70 - 100 mg/dL 11/17/2024 12:03 AM EDT [facility] Sample Type Capillary 11/17/2024 12:03 AM EDT [facility] Patient Status Non-Critical Patient 11/17/2024 12:03 AM EDT [facility] Blood BLOOD SPECIMEN / Unknown 11/17/2024 12:01 AM EDT 11/17/2024 12:03 AM EDT Arcadio Ruiz MD POINT OF CARE TEST ORDERABL ES Final Result Performing Organization Address [facility] Phone Number [facility] [address] [place] [address] * ECG AND WAVEFORMS - TELEMETRY (11/16/2024 9:29 PM EDT) [facility] ECG INTERPRET NSR [facility] 11/16/2024 9:29 PM EDT Narrative [facility] - 11/16/2024 9:51 PM EDT NEW [facility] OH 0.18 QRS 0.09 RR 0.88 QT 0.38 QTc 0.41 See Clinical Report link for waveform capture us Unknown Provider POINT OF CARE CARDIOLOGY Final Result Performing Organization Address [facility] de Phone Number [facility] [address] [place] [address] documented in this encounter Visit Diagnoses Diagnosis Seizure-like activity (HCC)- Primary Other convulsions Class 3 severe obesity due to excess calories with body mass index (BMI) of 60.0 to 69.9 in adult 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 Given 11/17/2024 9:38 AM EDT 650 mg albuterol (PROVENTIL HFA;VENTOLIN HFA) inhaler 2 Puff 2 Puff, Inhalation, PRN, Starting on 11/17/24 at 0857, Until 11/17/24 at 2156, Wheezing, Shortness of Breath, Waste Sort Code = BLACK RCRA Hazardous Waste Container albuterol (PROVENTIL) nebulizer solution 2.5 mg 2.5 mg, Nebulization, PRN, Starting on 11/17/24 at 0857, Until 11/17/24 at 2156, Wheezing, Shortness of Breath, Bronchospasm aluminum & magnesium hydroxide-simethicone 200-200-20 mg/5 mL suspension 30 mL 30 mL, Oral, EVERY 4 HOURS PRN, Starting on 11/16/24 at 2359, Until 11/17/24 at 215, Indigestion, Heartburn, Shake well. jnuhkpgulo-jjhmlpbwizzvp-s affeine (FIORICET) per tablet 1 Tablet 1 Tablet, Oral, ONCE, 1 dose, On 11/17/24 at 1245, Maximum adult dose of acetaminophen is 4000 mg from all sources in 24 hours. Given 11/17/2024 12:46 PM EDT 1 Tablet diazePAM (VALIUM) injection 2.5 mg 2.5 mg, Intravenous, ONCE, 1 dose, On 11/17/24 at 1045, Caution - Vesicant - Verify Patency of IV Access. For IV push administration give over 2-5 minutes Given 11/17/2024 9:39 AM EDT 2.5 mg enoxaparin (LOVENOX) injection 40 mg 40 mg, Subcutaneous, EVERY 12 HOURS SCHEDULED (2 times per day), First dose on Mon11/17/24 at 1000, Until Discontinued Given 11/17/2024 9:39 AM EDT 40 mg Abdominal Tissue gabapentin (NEURONTIN) capsule 400 mg 400 mg, Oral, 3 TIMES DAILY, 261 doses, First dose on Mon11/17/24 at 0145, Last dose on Mon02/11/25 at 1400, Capsules may be opened and contents dissolved in water for administration Given 11/17/2024 9:38 AM EDT 400 mg hydroxychloroquine (PLAQUENIL) tablet 200 mg 200 mg, Oral, DAILY, First dose on Mon11/17/24 at 1000, Until Discontinued Given 11/17/2024 9:38 AM EDT 200 mg LEVOthyroxine (SYNTHROID) tablet 175 mcg 175 mcg, Oral, DAILY EARLY AM, First dose on Mon11/17/24 at 0600, Until Discontinued, Take on empty stomach, at least 30 minutes to 1 hour before breakfast. Take at least 4 hours prior before or after calcium- or iron-containing products or bile acid sequestrants. If given via NG or other tubes administer dose as long as possible after feeding and at least 1 hour before resuming feeding. Given 11/17/2024 5:23 AM EDT 175 mcg loratadine (CLARITIN) tablet 10 mg 10 mg, Oral, DAILY, First dose on Mon11/17/24 at 1000, Until Discontinued, Therapeutic Interchange for cetirizine (ZyrTEC) PO Given 11/17/2024 9:38 AM EDT 10 mg LORazepam (ATIVAN) tablet 0.5 mg 0.5 mg, Oral, ONCE, 1 dose, On 11/17/24 at 0045 Given 11/17/2024 12:58 AM EDT 0.5 mg melatonin tablet 5-10 mg 5-10 mg, Oral, NIGHTLY PRN, Starting on 11/16/24 at 2359, Until 11/17/24 at 2157, Sleep, Begin with lowest dose unless otherwise directed. Reassess patient in 30 minutes. If necessary, remainder of dose may be given to patient. miconazole (MICATIN) 2 % powder Topical, 2 TIMES DAILY, 84 doses, First dose on 11/17/24 at 0900, Last dose on 12/28/24 at 2100, Application site: abdomominal and groin skin folds Given 11/17/2024 9:44 AM EDT ondansetron (ZOFRAN) injection 4 mg 4 mg, Intravenous, EVERY 6 HOURS PRN, Starting on 11/16/24 at 2359, Until 11/17/24 at 2157, Nausea, IV push over 2 - 5 minutes for doses 4 mg and less. ondansetron (ZOFRAN) tablet 4 mg 4 mg, Oral, EVERY 4 HOURS PRN, Starting on 11/16/24 at 2359, Until 11/17/24 at 215, Nausea pantoprazole (PROTONIX) tablet 40 mg 40 mg, Oral, DAILY, First dose on 11/17/24 at 0030, Until Discontinued, Therapeutic Interchange for omeprazole (Prilosec) 40mg cap daily Given 11/17/2024 12:58 AM EDT 40 mg PARoxetine (PAXIL) tablet 20 mg 20 mg, Oral, DAILY, First dose on 11/17/24 at 1000, Until Discontinued Given 11/17/2024 9:38 AM EDT 20 mg rOPINIRole (REQUIP) tablet 1 mg 1 mg, Oral, NIGHTLY, First dose on 11/17/24 at 0145, Until Discontinued Given 11/17/2024 12:58 AM EDT 1 mg senna (SENOKOT) tablet 1-2 Tablet 1-2 Tablet, Oral, DAILY PRN, Starting on 11/16/24 at 2359, Until 11/17/24 at 215, Constipation, Start with lowest dose and may give additional if needed. If multiple oral PRN laxatives/stool softeners ordered, may give per patient preference. documented in this encounter Discontinued Medications Medication Sig Discontinue Reason Start Date End Da te Brompheniramine-Pseu doeph-DM 2-30-10 mg/5 mL Oral SyrupIndications:Vir al URI with cough Take 10 mL by mouth every 4 hours as needed (Cough, Nasal Congestion, Allergies). Stop Taking at Discharge 06/07/2024 11/17/2024 ibuprofen (ADVIL;MOTRIN) 800 mg Oral TabletIndications:St ress reaction of left foot, initial encounter,Peroneal tendinitis of left lower extremity,Painful os peroneum syndrome Take 1 Tablet by mouth every 6 hours as needed. Stop Taking at Discharge 08/20/2024 11/17/2024 meloxicam (MOBIC) 15 mg Oral TabletIndications:Ac iroquois midline low back pain without sciatica TAKE 1 TABLET BY MOUTH EVERY DAY Stop Taking at Discharge 09/10/2024 11/17/2024 fUROsemide (LASIX) 40 mg Oral Tablet TAKE 1 TABLET BY MOUTH EVERY DAY Stop Taking at Discharge 10/09/2024 11/17/2024 methylPREDNISolone (MEDROL DOSPACK) 4 mg Oral Tablets, Dose Pack See package instructions Stop Taking at Discharge 11/05/2024 11/17/2024 methocarbamoL (ROBAXIN) 750 mg Oral Tablet Take 1 Tablet by mouth 3 times daily as needed for Pain for up to 30 days. Stop Taking at Discharge 11/06/2024 11/17/2024 documented as of this encounter Historical Medications * This list may reflect changes made after this encounter. cetirizine (ZYRTEC) 10 mg Oral TabletIndications :seasonal allergic rhinitis Take 10 mg by mouth daily. Indications: seasonal runny nose added in this encounter Active and Recently Administered Medications Times are shown in EDT. Scheduled Medication Order 11/15/2024 11/16/2024 11/17/2024 vfhvxiajot-ynlsanorcbbte-ldriwfix (FIORICET) per tablet 1 Tablet (COMPLETED) 1 Tablet, Oral, ONCE, 1 dose, On 11/17/24 at 1245, Maximum adult dose of acetaminophen is 4000 mg from all sources in 24 hours. 1246 (Given - Provid er: Chuy Peck RN) diazePAM (VALIUM) injection 2.5 mg (COMPLETED) 2.5 mg, Intravenous, ONCE, 1 dose, On 11/17/24 at 1045, Caution - Vesicant - Verify Patency of IV Access. For IV push administration give over 2-5 minutes 0939 (Given - Provid er: Chuy Peck RN) enoxaparin (LOVENOX) injection 40 mg 40 mg, Subcutaneous, EVERY 12 HOURS SCHEDULED (2 times per day), First dose on 11/17/24 at 1000, Until Discontinued 0939 (Given - Provid er: Chuy Peck RN) gabapentin (NEURONTIN) capsule 400 mg 400 mg, Oral, 3 TIMES DAILY, 261 doses, First dose on Mon11/17/24 at 0145, Last dose on Mon02/11/25 at 1400, Capsules may be opened and contents dissolved in water for administration 0058 (Given - Provid er: Mark Mitchell RN)0938 (Given - Provider: Chuy Peck RN)1400 (Not Given - Provider: Chuy Peck RN - Reason: Patient Declined) hydroxychloroquine (PLAQUENIL) tablet 200 mg 200 mg, Oral, DAILY, First dose on 11/17/24 at 1000, Until Discontinued 937 (Given - Provid er: Chuy Peck RN) LEVOthyroxine (SYNTHROID) tablet 175 mcg 175 mcg, Oral, DAILY EARLY AM, First dose on 11/17/24 at 0600, Until Discontinued, Take on empty stomach, at least 30 minutes to 1 hour before breakfast. Take at least 4 hours prior before or after calcium- or iron-containing products or bile acid sequestrants. If given via NG or other tubes administer dose as long as possible after feeding and at least 1 hour before resuming feeding. 0523 (Given - Provid er: Mark Mitchell RN) loratadine (CLARITIN) tablet 10 mg 10 mg, Oral, DAILY, First dose on 11/17/24 at 1000, Until Discontinued, Therapeutic Interchange for cetirizine (ZyrTEC) PO 937 (Given - Provid er: Chuy Peck RN) LORazepam (ATIVAN) tablet 0.5 mg (COMPLETED) 0.5 mg, Oral, ONCE, 1 dose, On 11/17/24 at 0045 0058 (Given - Provid er: Mark Mitchell RN) miconazole (MICATIN) 2 % powder Topical, 2 TIMES DAILY, 84 doses, First dose on 11/17/24 at 0900, Last dose on Mon12/28/24 at 2100, Application site: abdomominal and groin skin folds 0944 (Given - Provid er: Chuy Peck RN) pantoprazole (PROTONIX) tablet 40 mg 40 mg, Oral, DAILY, First dose on 11/17/24 at 0030, Until Discontinued, Therapeutic Interchange for omeprazole (Prilosec) 40mg cap daily 57 (Given - Provid er: Mark Mitchell RN) PARoxetine (PAXIL) tablet 20 mg 20 mg, Oral, DAILY, First dose on 11/17/24 at 1000, Until Discontinued 937 (Given - Provid er: Chuy Peck RN) rOPINIRole (REQUIP) tablet 1 mg 1 mg, Oral, NIGHTLY, First dose on 11/17/24 at 0145, Until Discontinued 57 (Given - Provid er: Mark Mitchell RN) PRN Medication Order 11/15/2024 11/16/2024 11/17/2024 acetaminophen (TYLENOL) tablet 650 mg 650 mg, Oral, EVERY 4 HOURS PRN, Starting on 11/16/24 at 2359, Until 11/17/24 at 2157, Pain, Fever, Maximum adult dose of acetaminophen is 4000 mg from all sources in 24 hours. 937 (Given - Provid er: Chuy Peck RN) albuterol (PROVENTIL HFA;VENTOLIN HFA) inhaler 2 Puff(Linked Group 1) 2 Puff, Inhalation, PRN, Starting on 11/17/24 at 0857, Until 11/17/24 at 2157, Wheezing, Shortness of Breath, Waste Sort Code = BLACK RCRA Hazardous Waste Container albuterol (PROVENTIL) nebulizer solution 2.5 mg(Linked Group 1) 2.5 mg, Nebulization, PRN, Starting on 11/17/24 at 0857, Until 11/17/24 at 215, Wheezing, Shortness of Breath, Bronchospasm aluminum & magnesium hydroxide-simethicone 200-200-20 mg/5 mL suspension 30 mL 30 mL, Oral, EVERY 4 HOURS PRN, Starting on 11/16/24 at 2359, Until 11/17/24 at 2157, Indigestion, Heartburn, Shake well. melatonin tablet 5-10 mg 5-10 mg, Oral, NIGHTLY PRN, Starting on 11/16/24 at 2359, Until 11/17/24 at 2157, Sleep, Begin with lowest dose unless otherwise directed. Reassess patient in 30 minutes. If necessary, remainder of dose may be given to patient. ondansetron (ZOFRAN) injection 4 mg(Linked Group 2) 4 mg, Intravenous, EVERY 6 HOURS PRN, Starting on 11/16/24 at 2359, Until 11/17/24 at 2156, Nausea, IV push over 2 - 5 minutes for doses 4 mg and less. ondansetron (ZOFRAN) tablet 4 mg(Linked Group 2) 4 mg, Oral, EVERY 4 HOURS PRN, Starting on 11/16/24 at 2359, Until 11/17/24 at 2156, Nausea senna (SENOKOT) tablet 1-2 Tablet 1-2 Tablet, Oral, DAILY PRN, Starting on 11/16/24 at 2359, Until 11/17/24 at 2156, Constipation, Start with lowest dose and may give additional if needed. If multiple oral PRN laxatives/stool softeners ordered, may give per patient preference. tiZANidine (ZANAFLEX) tablet 4 mg 4 mg, Oral, NIGHTLY PRN, Starting on 11/17/24 at 0820, Until Mon11/17/24 at 2156, Muscle spasms Linked Groups Order Group 1: albuterol (PROVENTIL HFA;VENTOLIN HFA) inhaler 2 PuffJump to med 2 Puff, Inhalation, PRN, Starting on 11/17/24 at 0857, Until 11/17/24 at 2156, Wheezing, Shortness of Breath, Waste Sort Code = BLACK RCRA Hazardous Waste Container Or albuterol (PROVENTIL) nebulizer solution 2.5 mgJump to med 2.5 mg, Nebulization, PRN, Starting on 11/17/24 at 0857, Until 11/17/24 at 2156, Wheezing, Shortness of Breath, Bronchospasm Group 2: ondansetron (ZOFRAN) tablet 4 mgJump to med 4 mg, Oral, EVERY 4 HOURS PRN, Starting on 11/16/24 at 2359, Until 11/17/24 at 2156, Nausea Or ondansetron (ZOFRAN) injection 4 mgJump to med 4 mg, Intravenous, EVERY 6 HOURS PRN, Starting on 11/16/24 at 2359, Until 11/17/24 at 2157, Nausea, IV push over 2 - 5 minutes for doses 4 mg and less. documented in this encounter Orders Medications Ordered That Wallace ht Not Have Been Administered Count Last Ordered Date First Ordered Date albuterol (PROVENTIL HFA;MARIANNE TOLIN HFA) inhaler 2 Puff 1 11/17/2024 albuterol (PROVENTIL) nebuli zer solution 2.5 mg 3 11/17/2024 albuterol-ipratropium (DUO-N EB) 3 mg-0.5 mg(2.5 mg base)/3 mL nebulizer solution 3 mL 3 11/17/2024 aluminum & magnesium hydroxi de-simethicone 200-200-20 mg/5 mL suspension 30 mL 1 11/17/2024 melatonin tablet 5-10 mg 1 11/17/2024 ondansetron (ZOFRAN) injection 4 mg 1 11/17 ondansetron (ZOFRAN) tablet 4 mg 1 11/18/19 25 senna (SENOKOT) tablet 1-2 Tablet 1 025 tiZANidine (ZANAFLEX) tablet 4 mg 1 025 Consult Count Last Ordered Date First Orde red Date Inpatient consult to Neurology Seizures 1 0 11/17/2024 Respiratory Care Count Last Ordered Date First Ordered Date RESPIRATORY EVALUATE & TREAT 1 11/17/2024 Admission Count Last Ordered Date First Orde red Date ADMIT 1 11/17/2024 Discharge Count Last Ordered Date First Orde red Date DISCHARGE PATIENT 1 11/17/2024 documented in this encounter Care Teams Engineering Geologist Relationship Specialty Start Date End Date Abdulkadir [place] [address] [place] [address] PCP - General 06/29/09 documented as of this encounter
--- OUTSIDE RECORDS SUMMARY | 2024-11-19 14:00 | XMS_ITS | Encounter Summary ---
Author Organization [place] [address] Care Team Providers Care Flour Mixer Name Role Phone Virginia Montoya MD Primary Care Provider [phone] Reason for Referral * MRI/CAT Scan (Routine) - Pending Review Specialty Diagnoses / Procedures Referred By Donna quiñonez Referred To Contact Radiology Diagnoses Seizure-like activity (HCC) Procedures MRI BRAIN W WO CONTRAST Virginia Montoya MD [address] [place] [address] Phone: tel: fax: Referral ID Status Reason Start Date Expiration Date V isits Requested Visits Authorized [id number] Pending Review 11/20/2024 11/20/2025 1 1 Reason for Visit * Reason Comments Hospital Follow Up 11/16/2024 - Seizure-like activity Encounter Details Date Type Department Care Team (Late st Contact Info) Description 11/19/2024 2:00 PM EDT Office Visit [facility] [place] [phone] Virginia Montoya MD [address] [place] [phone] Seizure-like activity (HCC) (Primary Dx) Social History Tobacco Use Types Packs/Day Years Used Date Smoking Tobacco: Former Cigarettes 0.5 24 1 - 01/22/1999 Passive Smoke Exposure: Past Smokeless Tobacco: Never Tobacco Cessation:Counseling Given: Not Answered Alcohol Use Standard Drinks/Week Comments No 0 (1 standard drink = 0.6 oz pur e alcohol) Overall Financial Resource Strain (CARDIA) Answe r Date Recorded How hard is it for you to pa y for the very basics like food, housing, medical care, and heating? Not hard at all 04/04/2023 PHQ-2 Answer Date Recorded PHQ-2 Total Score 0 04/04/2023 [facility] - Occupational [...] Sign Reading Time Taken Comments Blood Pressure 134/90 11/19/2024 1:49 PM EDT Pulse 72 11/19/2024 1:49 PM EDT Temperature 36.8 C (98.2 F) 11/19/2024 1:49 PM EDT Respiratory Rate 18 11/19/2024 1:49 PM EDT Oxygen Saturation 98% 11/19/2024 1:49 PM EDT Inhaled Oxygen Concentration - - Weight 165.6 kg (365 lb) 11/19/2024 1:49 PM EDT Height 165.1 cm (5' 5 ) 11/19/2024 1:49 PM EDT Body Mass Index 60.74 11/19/2024 1:49 PM EDT documented in this encounter Functional Status * Is the person deaf or does he/she have serious difficulty hearing? Answer Date of Assessment Author No 09/02/2023 11:02 AM ERNIE CALL AN NA * Is the person blind or does he/she have serious difficulty seeing even when wearing glasses? Answer Date of Assessment Author No 09/02/2023 11:02 AM ERNIE CALL AN NA * Does this person have [...] Assessment Author No 09/02/2023 11:02 AM ERNIE CALL AN NA documented as of this encounter Mental Status * Because of a physical, mental or emotional condition, does this person have serious difficulty concentrating, remembering or making decisions? Answer Entry Date Author No 09/02/2023 11:02 AM LATRICE LYMAN NA documented in this encounter Ordered Prescriptions Prescription Sig Dispense Quantity Refills Last Filled Start Date End Date clonazePAM (KLONOPIN) 1 mg Oral TabletIndications: Seizure-like activity (HCC) Take 1 Tablet by mouth 2 times daily for 10 days. 20 Tablet 11/19/2024 11/29/2024 documented in this encounter Progress Notes * Virginia Montoya MD - 11/19/2024 2:00 PM EDTAssociated Problem(s): Seizure- like activity (HCC) Orders: THYROID STIMULATING HORMONE; Future T4, FREE (THYROXINE); Future SEDIMENTATION RATE AUTOMATED; Future C-REACTIVE PROTEIN; Future COMPREHENSIVE METABOLIC PANEL; Future clonazePAM (KLONOPIN) 1 mg Oral Tablet; Take 1 Tablet by mouth 2 times daily for 10 days. * Virginia Montoya MD - 11/19/2024 2:00 PM EDT Assessment & Plan 1. Seizure-like activity. - Symptoms do not align with a typical seizure disorder, as evidenced by a normal EEG. - Possibility of migraine-induced spasms discussed, which could potentially trigger these episodes without causing brain damage. - Role of heat and dehydration in her symptoms considered; weight loss could necessitate adjustments in thyroid replacement therapy, but unlikely to be the cause of current symptoms. - Additional blood work will be ordered to assess inflammation levels and thyroid function; short-term medication regimen initiated to prevent further episodes until the underlying cause is identified. 2. Weight loss. - Lost 24 pounds and is currently on tirzepatide 2.5 mg for weight loss, started in 07/2024. - Blood sugar level was 88 during the last hospital visit. - Takes medication every Monday and experiences nausea if consuming a lot of sugar after taking it. - Potential impact of tirzepatide on blood sugar levels discussed. 3. Hematoma. - Advised to take [id number] aspirin and apply warm compresses to the affected area. Assessment & Plan Seizure-like activity (HCC) Orders: THYROID STIMULATING HORMONE; Future T4, FREE (THYROXINE); Future SEDIMENTATION RATE AUTOMATED; Future C-REACTIVE PROTEIN; Future COMPREHENSIVE METABOLIC PANEL; Future clonazePAM (KLONOPIN) 1 mg Oral Tablet; Take 1 Tablet by mouth 2 times daily for 10 days. No follow-ups on file. Subjective Marcia Perez is a 49 y.o. female Chief Complaint Patient presents with Hospital Follow Up 11/16/2024 - 11/17/2024 Seizure-like activity History of Present Illness The patient is a 49-year-old female who presents for evaluation of seizure-like activity. She experienced an episode of internal shakiness, severe headache, and eye twitching while playing with her children indoors on Monday. She did not lose consciousness but felt disoriented for some time. A similar episode occurred last night while she was using her phone. These episodes have occurred more than twice, with the most recent one resulting in a hospital visit. She has been experiencing constant headaches and pressure at the base of her neck since Monday. Prior to this visit, she had a sharp pain that radiated from the back to the front of her head while using the bathroom. She also reports pain in the back of her neck and upper head during these episodes. She has not had any u nusual insect bites. She is coherent and can respond to questions, although not vocally. The episodes typically last about 3 minutes and resolve on their own, leaving her feeling slightly unwell but returning to normal afterward. She was advised to consult a therapist. An EEG showed no abnormalities. A CT scan of her head conducted at [facility] revealed no abnormalities or stroke activity. She was informed that her symptoms were not indicative of lupus. She was out in the heat for a wholeweek before all this happened. She has lost 24 pounds and is currently on tirzepatide 2.5 mg for weight loss, which she started in07/2024. Her blood sugar level was 88 during her last hospital visit. She takes the medication every Monday and experiences nausea if she consumes a lot of sugar after taking it. She reports soreness in her vein following a recent blood draw. Her thyroid levels were checked, with TSH at 4 and T4 at 15. She had a fall in her backyard 2 weeksago, which resulted in hip and leg injuries. 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 Her daughter was visiting off and on staying with her boyfriend, but they moved back up to the house permanently. During visit, had episode of eye twitching and hand twitching. Retained consciousness and did not fall off exam table. When episode ended after approximately 1 minute she retained lucidity and did not exhibit a post ictal state. Review of Systems Constitutional: Negative. Negative for activity change, fatigue, fever and unexpected weight change. HENT: Negative. Negative for trouble swallowing. Eyes: Negative. Negative for photophobia, pain, discharge, itching and visual disturbance. Respiratory: Negative. Negative for cough, chest tightness, shortness of breath and wheezing. Cardiovascular: Negative. Negative for chest pain, palpitations and leg swelling. Gastrointestinal: Negative. Negative for abdominal distention, abdominal pain, blood in stool, constipation and diarrhea. Musculoskeletal: Negative. Negative for arthralgias, back pain, gait problem, joint swelling, myalgias, neck pain and neck stiffness. Skin: Negative. Negative for color change, pallor, rash and wound. Neurological: Negative. Negative for dizziness and headaches. Hematological: Negative for adenopathy. Psychiatric/Behavioral: Negative. Negative for confusion, sleep disturbance and suicidal ideas. Thepatient is not nervous/anxious. Objective Blood pressure (!) 134/90, pulse 72, temperature 98.2 ??F (36.8 ??C), temperature source Temporal, resp. rate 18, height 5' 5 (1.651 m), weight (!) 365 lb (165.6 kg), last menstrual period 10/15/2018, SpO2 98%, not currently . Body mass index is 60.74 kg/m??. Physical Exam Neurological: Patient is coherent and responsive, able to answer questions non- vocally by shaking her head. Respiratory: Breathing fine. Extremities: Hematoma noted on the arm from a previous venipuncture. Skin: Hematoma noted on the arm from a previous venipuncture. Physical Exam Vitals reviewed. Constitutional: General: She is not in acute distress. Appearance: She is well-developed. She is not diaphoretic. HENT: Head: Normocephalic and atraumatic. Right Ear: External ear normal. Left Ear: External ear normal. Mouth/Throat: Pharynx: No oropharyngeal exudate. Eyes: General: No scleral icterus. Right eye: No discharge. Left eye: No discharge. Conjunctiva/sclera: Conjunctivae normal. Pupils: Pupils are equal, round, and reactive to light. Neck: Thyroid: No thyromegaly. Cardiovascular: Rate and Rhythm: Normal rate and regular rhythm. Heart sounds: Normal heart sounds. No murmur heard. No gallop. Pulmonary: Effort: Pulmonary effort is normal. No respiratory distress. Breath sounds: Normal breath sounds. No wheezing or rales. Chest: Chest wall: No tenderness. Abdominal: General: Bowel sounds are normal. Palpations: Abdomen is soft. There is no mass. Tenderness: There is no abdominal tenderness. There is no guarding or rebound. Musculoskeletal: General: No tenderness. Normal range of motion. Cervical back: Normal range of motion and neck supple. Lymphadenopathy: Cervical: No cervical adenopathy. Skin: General: Skin is warm and dry. Neurological: Mental Status: She is alert and oriented to person, place, and time. Results Labs - TSH: 4 - T4: 15 - Blood sugar: 88 Imaging - CT scan of the head: No abnormalities or stroke activity Diagnostic Testing - EEG: No abnormalities The provider educated the patient (or legal ict sales representative) on the use of the ambient listening artificial intelligence tool, Drivr. They were informed that this AI tool processes the conversation to generate a clinical note with the expected benefit of improved accuracy while achieving an improved encounter experience for the patient and provider.?The provider explained that the medical information captured by the AI tool including, but not limited to, diagnoses and treatment plan would be protected in accordance with applicable privacy laws and that all diagnoses and treatment decisions would be made by the provider. The provider explained that the note generated will be reviewed bythe provider for accuracy to minimize potential errors.? The patient was given an opportunity to ask questions and opt out of proceeding with the use of the AI tool. After being informed of such information, the patient (or legal ict sales representative), and each individual in attendance with the patient, verbally consented to the use of the AI tool. * Kristin Acevedo - 11/19/2024 2:00 PM EDT Venipuncture in the right antecubital vein with 21 gauge needle, length 1 1/2 inch. documented in this encounter Miscellaneous Notes * Addendum Note - Virginia Montoya MD - 11/19/2024 2:00 PM EDTAddended by: VIRGINIA MONTOYA on: 11/20/2024 07:53 AM Modules accepted: Orders documented in this encounter Plan of Treatment Upcoming Encounters Date Type Department Care Team (Late st Contact Info) Description 11/27/2024 8:[address] [facility] [address] [place] [address] Virginia Montoya MD [address] [place] [phone] 02/10/2025 1:30 PM EDT Office Visit [facility] [address] [place] [address] Judith Lomax MD [address] [place] [id number] Scheduled Orders Name Type Priority Associated Diagnoses Orde r Schedule MRI BRAIN W WO CONTRAST Imaging Routine Seizure-like activity (HCC) 1 Occurrences starting 11/20/2024 until 11/20/2025 documented as of this encounter Goals Goal Patient Goal Type Associated Problems Recent Progress Patient-Stated? Author Eat better, exercise, reach an ideal body weight General No GroRula garcia, CCMA Stay Tobacco Free Lifestyle No GroomsRula, CCMA documented as of this encounter Procedures Procedure Name Priority Date/Time Associated Diagnosis Comments SEDIMENTATION RATE AUTOMATED Routine 11/19/2024 2:22 PM EDT Seizure-like activity (HCC) C-REACTIVE PROTEIN Routine 11/19/2024 2: 22 PM EDT Seizure-like activity (HCC) THYROID STIMULATING HORMONE Routine 11/19/2024 2:22 PM EDT Seizure-like activity (HCC) T4, FREE (THYROXINE) Routine 11/19/2024 2:22 PM EDT Seizure-like activity (HCC) COMPREHENSIVE METABOLIC PANEL Routine 11/19/2024 2:22 PM EDT Seizure-like activity (HCC) documented in this encounter Results * (ABNORMAL) COMPREHENSIVE METABOLIC PANEL (11/19/2024 2:22 PM EDT) Sodium 143 136 - 145 mmol/L 11/20/2024 12:23 AM EDT [facility] Potassium 4.3 3.5 - 5.0 mmol/L 11/20/2024 12:23 AM EDT [facility] Chloride 108(H) 98 - 107 mmol/L 11/20/2024 12:23 AM EDT [facility] Total CO2 23 22 - 29 mmol/L 11/20/2024 12:23 AM EDT [facility] Anion Gap 12 7 - 16 mmol/L 11/20/2024 12:23 AM EDT [facility] Calcium 9.2 8.6 - 10.4 mg/dL 11/20/2024 12:23 AM EDT [facility] Glucose Lvl 80 70 - 99 mg/dL 11/20/2024 12:23 AM EDT [facility] BUN 12 6 - 20 mg/dL 11/20/2024 12:23 AM EDT [facility] Creatinine 0.84 0.51 - 1.30 mg/dL 11/20/2024 12:23 AM EDT [facility] Albumin 4.0 3.5 - 5.2 gm/dL 11/20/2024 12:23 AM EDT [facility] Total Protein 7.0 6.4 - 8.3 gm/dL 11/20/2024 12:23 AM EDT [facility] Bili Total 0.3 0.2 - 1.3 mg/dL 11/20/2024 12:23 AM EDT [facility] ALT 23 <=41 U/L 11/20/2024 12:23 AM EDT [facility] AST 29 <=40 U/L 11/20/2024 12:23 AM EDT [facility] Alk Phos 104 36 - 123 U/L 11/20/2024 12:23 AM EDT [facility] [employer], [facility] eGFR (CKD-EPIcr 2020) 86 >=60 mL/min/1.7 3 m2 11/20/2024 12:23 AM EDT [facility] [employer] [facility] Comment:Estimated GFR was ca lculated using the CKD-EPIcr (2020) equation refit without race. The equation is recommended by the National Kidney Foundation - [place] [employer] of Nephrology Task Force. Blood VENOUS BLOOD / Unknown Venipuncture / Unknown 11/19/2024 2:22 PM EDT 11/19/2024 2:22 PM EDT Virginia Montoya MD CHEMISTRY ORDERABLES Final Res ult Performing Organization Address [facility] Co de Phone Number [facility] [address] , [place] [address] * (ABNORMAL) C-REACTIVE PROTEIN (11/19/2024 2:22 PM EDT) CRP 17.09(H) <=5.00 mg/L 11/20/2024 12:23 AM EDT [facility] [employer] [facility] Blood VENOUS BLOOD / Unknown Venipuncture / Unknown 11/19/2024 2:22 PM EDT 11/19/2024 2:22 PM EDT Virginia Montoya MD CHEMISTRY ORDERABLES Final Res ult Performing Organization Address City/[facility] Co de Phone Number [facility] [address] , [place] [address] * SEDIMENTATION RATE AUTOMATED (11/19/2024 2:22 PM EDT) Sed Rate 15 0 - 20 mm/hr 11/19/2024 8:15 PM EDT [facility] [employer] [facility] Blood VENOUS BLOOD / Unknown Venipuncture / Unknown 11/19/2024 2:22 PM EDT 11/19/2024 2:22 PM EDT Virginia Montoya MD HEMATOLOGY ORDERABLES Final Re sult Performing Organization Address City/[facility]/ZIP Co de Phone Number [employer] [address] , [place] [address] * T4, FREE (THYROXINE) (11/19/2024 2:22 PM EDT) Free T4 1.38 0.80 - 1.80 ng/dL 11/20/2024 12:23 AM EDT [employer] Blood VENOUS BLOOD / Unknown Venipuncture / Unknown 11/19/2024 2:22 PM EDT 11/19/2024 2:22 PM EDT Narrative [employer] - 11/20/2024 12:23 AM EDT Ingestion of rayshawn doses of biotin (>5 mg/day) taken within 8 hours of drawing blood sample can interfere with this immunoassay test. Virginia Montoya MD CHEMISTRY ORDERABLES Final Res ult Performing Organization Address [facility] Co de Phone Number [employer] [address] [address] , [place] [address] * THYROID STIMULATING HORMONE (11/19/2024 2:22 PM EDT) TSH 0.411 0.270 - 4.200 mcIU/mL 11/20/2024 12:23 AM EDT [employer] Blood VENOUS BLOOD / Unknown Venipuncture / Unknown 11/19/2024 2:22 PM EDT 11/19/2024 2:22 PM EDT Narrative [employer] - 11/20/2024 12:23 AM EDT Ingestion of rayshawn doses of biotin (>5 mg/day) taken within 8 hours of drawing blood sample can interfere with this immunoassay test. Virginia Montoya MD CHEMISTRY ORDERABLES Final Res ult Performing Organization Address City/[facility]/ZIP Co de Phone Number [employer] [address] , [place] [address] documented in this encounter Visit Diagnoses Diagnosis Seizure-like activity (HCC)- Primary Other convulsions documented in this encounter Discontinued Medications Medication Sig Discontinue Reason Start Date End Da te docusate sodium (COLACE) 100 mg Oral Capsule Take 1 Capsule by mouth 2 times daily. Cancelled by 04/04/2024 11/19/2024 COLLAGEN MISC 2 Tablets by Misc.(Non-Drug; Combo Route) route daily. Collagen Peptide Multivitamin Cancelled by 11/19/2024 ibuprofen (ADVIL;MOTRIN) 600 mg Oral Tablet Take 1 Tablet by mouth every 6 hours as needed for Pain. Cancelled by 04/04/2024 11/19/2024 documented as of this encounter Care Teams Flour Mixer Relationship Specialty Start Date End Date Virginia Montoya MD [address] [place] [phone] PCP - General 06/29/09 documented as of this encounter
[2024-11-25] VITALS (10 sets, daily range): BP systolic 123–146; BP diastolic 66–88; PULSE 63–83; RESP 14–22; TEMP 37.1; O2SAT 93–100; BMI 60.5
--- NOTE | 2024-11-25 12:24 | ECG_ITS ---
APPROVED REPORT Exam: Resting ECG HR:79 bpm ECG Measurements Heart Rate 79 AXES MA 152 P 58 QRSd 113 QRS 30 QT 377 T 26 QTc 412 Conclusion SINUS RHYTHM MODERATE INTRAVENTRICULAR CONDUCTION DELAY [110+ ms QRS DURATION] NONSPECIFIC ST & T-WAVE ABNORMALITY BORDERLINE ECG UNCONFIRMED REPORT Poor quality, however no obvious ST elevation or depression. Normal sinus rhythm. Electronically signed by : NASEEM JENSEN, 11/25/2024 14:24:20
--- NOTE | 2024-11-25 12:36 | ECG_ITS ---
APPROVED REPORT Exam: Resting ECG HR:79 bpm ECG Measurements Heart Rate 79 AXES [place] 139 P 63 QRSd 100 QRS 63 QT 370 T 53 QTc 404 Conclusion SINUS RHYTHM NORMAL ECG UNCONFIRMED REPORT Normal sinus rhythm. No ST elevation or depression. No T wave inversions. QTc normal at 404 Electronically signed by : NASEEM JENSEN, 11/25/2024 14:23:59
--- NOTE | 2024-11-25 12:44 | CT_ITS ---
FINAL REPORT TECHNIQUE: Axial CT images were performed through the head. Coronal reformatted images were submitted. This study was performed with techniques to keep radiation doses as low as reasonably achievable (ALARA). Individualized dose reduction techniques using automated exposure control or adjustment of mA and/or kV according to the patient's size were employed. CLINICAL HISTORY: Posterior/occipital region headache COMPARISON: 11/16/2024 FINDINGS: The ventricles are normal in size. There is no evidence of hemorrhage. There is no mass or edema identified. There is no abnormal extra-axial fluid seen. The sinuses are well aerated. IMPRESSION: No acute intracranial process. Reviewed, Interpreted and Dictated by Moi Proctor MD Transcribed by Lindsay Diez Authenticated and [facility]
--- NOTE | 2024-11-25 12:50 | PC.NURSE ---
Called [facility] to have medical records sent to us about this patient.
--- NOTE | 2024-11-25 12:55 | ED_ITS ---
Discharge Plan Disposition Patient Disposition: Home, Self-Care Condition: Good Referrals Follow up/Referrals: Provider,Referral, MD [Referring, Medical] - See instructions Activity Restrictions/Add. Instructions Additional Instructions/Restrictions: Please follow-up with your neurologist, other providers, and PCP/prescriber of your thyroid medication in the upcoming days/months, please continue take all medication as prescribed, please keep your appointment for your MRI of the brain. Please return to the emergency department with any worsening signs or symptoms. Clinical Impressions Clinical Impression: Migraine with aura, Tremor Instructions Patient Instructions: DI for Migraine, DI for Seizure (Not Epilepsy/Seizure Disorder) Print Language Print Language: Wallisian Discharge ED Provider: Abdirizak Mcmahon General Adult HPI <RK Rae - Last Filed: 11/25/24 16:46> General Chief complaint: Seizure Stated complaint: Seizure Time Seen by Provider: 11/25/24 12:36 Mode of Arrival: EMS Source of Information: Patient and EMS Description of Symptoms (Recalled from ER Triage Doc. by RN): EMS was called out for pt having seizures. EMS reports that when they got on scene the pt was shaking and pt reported she had a headache. Per EMS the pt stopped shaking enroute and was given 10mg IV Versed. pt reports that she was sitting in her chair when her eyes started flickering and her head started throbbing before she had a seizure. pt is currently taking seizure medications but is unsure what it is. Denies shortness of breath and chest pain. Pt has a MRI scheduled in 2 days. Pt denies hitting her head. History of Present Illness HPI narrative: 49-year-old female presents to the emergency department via EMS for report of having seizures , per EMS when they arrived on the scene patient was actively shaking, reported that she had a headache, patient stopped shaking and route, after she was given 10 mg IM Versed, upon my examination of the patient, patient has no seizure-like activity, answers questions appropriately, GCS 15, extremities to command, does complain of a pressure-like , dull headache noted to the posterior occipital region that has been waxing and waning for the last 2 weeks. She complains of seizure-like activity and shaking episodes at times, that come and go, however, patient's significant other at the bedside states that she was also unresponsive , according to his son , who is at home with the patient, patient does remember being in the recliner , when she felt a headache coming on, and then she states that she only remembers waking up in the ambulance . She describes it as my eyes started flickering , and she endorses what sounds like floaters, but no other lightheadedness, no dizziness, unknown presyncopal versus syncopal event, no double vision or other blurry vision, patient denies any fever chills chest pain shortness of breath nausea vomiting constipation diarrhea no abdominal pain, no hematuria melena hematochezia hematemesis, no urinary symptomatology, patient has any alcohol tobacco or drug use, of note, patient was seen in the emergency department for a similar complaint 11/16/2024, unsure if seizure-like activity versus factitious disorder versus psychogenic nonepileptic seizures, patient did have a low TSH with elevated T4 in the setting of exogenous levothyroxine use, however, given the possibility of her tremor and neurological symptoms, even after multiple rounds of IV antiepileptics, she was transferred to [facility] for neurology evaluation. Patient states that she was seen by neurology, and had what sounds like a EEG performed, with neurology consultation, was discharged on 11/17/2024. Patient states that she did start a seizure medication , provided by her PCP for 10 days, she is no longer taking his medication, and she cannot return to the name of it . Initial triage vitals are unremarkable, other past medical history is consistent with migraine headaches, patient states that she typically takes Excedrin and her headaches go away, lupus, obesity, Conchis's thyroiditis, anxiety, anemia, osteoarthritis, GERD, TANIA. Please note that above description of symptoms, in this electronic medical record under categorization of recalled from ER triage doctor by RN are reflective of an initial nursing assessment, however, is not reflective of my full history and physical exam that was personally taken and clarified. Consequentially, this preceding description of symptoms, which may include the patient's categorized chief complaint in the EMR, do not reflect my personal clinical impression, and the ultimate description of history of present illness and patient stated complaints should be deferred to this section of the note. Unless stated otherwise or congruent with this section of the note, additional signs, symptoms, or incongruence should be interpreted as inaccurate with my clinical impression. Onset (ago): hour(s) Related Data Allergies Allergy/AdvReac Type Severity Reaction Status Date / Time amoxicillin Allergy Anaphylaxis Verified 11/16/24 18:19 cefazolin Allergy Rash Verified 11/16/24 18:19 cefdinir (From Omnicef) Allergy Anaphylaxis Verified 11/16/24 18:16 metronidazole Allergy Rash Verified 11/16/24 18:19 nabumetone Allergy Rash Verified 11/16/24 18:19 PFSH <RK Rae - Last Filed: 11/25/24 16:46> [facility] Disclaimer: The information contained in this section may have been updated after the patient was seen, as this information can be updated by other users. Social History Smoking Status: Never smoker alcohol intake: never current occupational status: employed Travel in the last 8 weeks?: Outside the [facility] Have you lived/traveled outside [place] in past 30 days?: No Contact w/someone who lives/traveled outside US past 30 days?: No Exposure to someone with infectious disease in past 14 days?: No Do you have a fever (greater than 100.4 F or 38 C)?: No Have you tested positive for COVID-19?: No Exposed to someone with COVID-19 in past 14 days?: No Do you have a sore throat?: No Do you have a cough?: No Do you have any weakness?: No Do you have any diarrhea?: No Are you experiencing any unusual bleeding?: No Do you have any muscle aches/pain?: No Do you have any abdominal pain?: No Are you experiencing loss of taste or smell?: No <RK Rae - Last Filed: 11/25/24 16:46> ROS Obtained: Yes All systems reviewed & no additional complaints except as documented Physical Exam <RK Rae - Last Filed: 11/25/24 16:46> General General appearance: alert and in no apparent distress Head Head exam: atraumatic and normocephalic Eye Eye exam: Present PERRL and EOMI ENT ENT exam: Present mucous membranes moist Neck Neck exam: Present normal inspection; Absent tenderness Chest Chest inspection: Present normal inspection and symmetric chest wall rise Respiratory Respiratory exam: Present normal lung sounds bilaterally; Absent respiratory distress Cardiovascular Cardiovascular exam: Present regular rate and normal rhythm Abdominal Exam Abdominal exam: Present soft; Absent tenderness, guarding, rebound or rigidity Extremities Exam Extremities exam: Present normal inspection Back Exam Back exam: Present normal inspection and full ROM; Absent tenderness Neurological Exam Neurological exam: Present alert and oriented X3 Psychiatric Psychiatric exam: Present normal affect Skin Skin exam: Present warm and dry Medical Decision Making <RK Rae - Last Filed: 11/25/24 16:46> Medical Records Medical records reviewed: Yes I reviewed the patient's medical records. Screening: Per USPSTF and CDC recommendations, given the prevalence of disease in our region, it is our hospital?s policy to screen for HIV and viral Hepatitis for all patients aged 18 and over and those with ongoing risk factors. Cholo Inquiry Pt receiving controlled substance: No Cholo was queried for this patient: No Vital Signs: 11/25/24 12:28 11/25/24 12:41 11/25/24 12:44 Temperature 98.8 F 98.8 F Temperature Source Oral Oral Pulse Rate 83 Pulse Rate [Right] 83 Respiratory Rate 14 14 Blood Pressure 146/88 H Blood Pressure [Right Arm] 146/88 H Blood Pressure Mean [Right Arm] 107 Blood Pressure Source Automatic Cuff Blood Pressure Source [Right Arm] Automatic Cuff Blood Pressure Position Supine Blood Pressure Position [Right Arm] Supine 02 Sat by Pulse Oximetry 97 97 97 Oxygen Delivery Method Room Air Room Air Room Air 11/25/24 13:00 11/25/24 14:01 11/25/24 14:30 Temperature Temperature Source Pulse Rate 81 70 75 Pulse Rate [Right] Respiratory Rate 18 20 21 Blood Pressure 123/69 128/76 124/71 Blood Pressure [Right Arm] Blood Pressure Mean [Right Arm] Blood Pressure Source Blood Pressure Source [Right Arm] Blood Pressure Position Blood Pressure Position [Right Arm] 02 Sat by Pulse Oximetry 96 95 95 Oxygen Delivery Method 11/25/24 15:00 11/25/24 15:30 11/25/24 16:00 Temperature Temperature Source Pulse Rate 63 78 67 Pulse Rate [Right] Respiratory Rate 17 22 22 Blood Pressure 139/66 128/66 131/70 Blood Pressure [Right Arm] Blood Pressure Mean [Right Arm] Blood Pressure Source Blood Pressure Source [Right Arm] Blood Pressure Position Blood Pressure Position [Right Arm] 02 Sat by Pulse Oximetry 95 100 93 L Oxygen Delivery Method 11/25/24 17:04 Temperature 98.8 F Temperature Source Oral Pulse Rate 75 Pulse Rate [Right] Respiratory Rate 19 Blood Pressure 145/87 H Blood Pressure [Right Arm] Blood Pressure Mean [Right Arm] Blood Pressure Source Automatic Cuff Blood Pressure Source [Right Arm] Blood Pressure Position Supine Blood Pressure Position [Right Arm] 02 Sat by Pulse Oximetry Oxygen Delivery Method Room Air Lab Data Lab results reviewed: Yes I reviewed the patient's lab results. Lab Results 11/25/24 12:45: Urine Color Yellow, Urine Appearance Clear, Urine pH 6.0, Ur Specific Jackson 1.010, Urine Protein Negative, Urine Glucose (UA) Negative, Urine Ketones Negative, Urine Blood Negative, Urine Nitrate Negative, Urine Bilirubin Negative, Urine Urobilinogen 0.2, Ur Leukocyte Esterase Negative, Urine RBC None, Urine WBC Occasional, Ur Squamous Epith Cells 3-5, Urine Bacteria Trace 11/25/24 13:39: Urine Opiates Screen Negative, Urine Methadone Screen Negative, Ur Barbituates Screen Negative, Ur Phencyclidine Scrn Negative, Ur Amphetamines Screen Negative, U Benzodiazepines Scrn Positive H, Urine Cocaine Screen Negative, U Marijuana (THC) Screen Negative 11/25/24 15:32: WBC 6.9, RBC 4.36, Hgb 11.6 L, Hct 36.2 L, MCV 83.0, MCH 26.6 L, MCHC 32.0, RDW 15.1, Plt Count 205, MPV 11.8 H, Neut % (Auto) 69.4, Lymph % (Auto) 21.9, [place] % (Auto) 4.5, Eos % (Auto) 3.5, Baso % (Auto) 0.3, Neut # (Auto) 4.8, Lymph # (Auto) 1.5, [place] # (Auto) 0.3, Eos # (Auto) 0.2, Baso # (Auto) 0.0, Sodium 142, Potassium 4.1, Chloride 109 H, Carbon Dioxide 29, Anion Gap 8.1, BUN 14, Creatinine 0.80, Estimated Creat Clear 78, Estimated GFR 77, Est GFR ( Amer) 93, Glucose 95, Lactate 0.6 L, Calcium 9.5, Magnesium 1.9, Total Bilirubin 0.3, AST 31, ALT 22, Alkaline Phosphatase 109, Troponin I < 0.01, NT-Pro-B Natriuret Pep < 20.0, Total Protein 6.4, Albumin 3.9, Globulin 2.5, Albumin/Globulin Ratio 1.6, TSH 0.29 L, Thyroxine (T4) 16.0 H, Plasma/Serum Alcohol < 10 11/25/24 16:27: Troponin I < 0.01 11/25/24 15:32 11/25/24 15:32 Orders (Tests/Meds): ED MEDICATIONS Discontinued Medications Generic Name Dose Route Start Last Admin Trade Name Freq PRN Reason Stop Dose Admin Dexamethasone Sodium Phosphate 10 mg 11/25/24 13:27 11/25/24 14:01 Dexamethasone 4mg/Ml 1ml Vial IV 11/25/24 13:28 10 mg ONCE ONE Administration Diphenhydramine HCl 25 mg 11/25/24 13:27 11/25/24 13:38 Diphenhydramine 50mg/Ml Vial IV 11/25/24 13:28 25 mg ONCE ONE Administration Ketorolac Tromethamine 15 mg 11/25/24 13:26 11/25/24 14:01 Ketorolac 30mg/Ml Vial IV 11/25/24 13:27 15 mg ONCE ONE Administration Prochlorperazine Edisylate 10 mg 11/25/24 13:27 11/25/24 13:38 Prochlorperazine 10mg/2ml Vial IV 11/25/24 13:28 10 mg ONCE ONE Administration ORDERS Category Date Time Status CT head/brain wo con Stat Cat Scan 11/25/24 12:44 Completed Complete Blood Count Auto Diff Stat Lab 11/25/24 15:32 Completed Comprehensive Metabolic Panel Stat Lab 11/25/24 15:32 Completed Drug Screen,Urine Stat Lab 11/25/24 13:39 Completed Ethanol [Ethyl Alcohol] Stat Lab 11/25/24 15:32 Completed Lactic Acid Stat Lab 11/25/24 15:32 Completed Magnesium Stat Lab 11/25/24 15:32 Completed NT Pro Brain Natriuretic Pep. Stat Lab 11/25/24 15:32 Completed T4 (Thyroxine) Stat Lab 11/25/24 15:32 Completed TSH [Thyroid Stimulating Hormone] Stat Lab 11/25/24 15:32 Completed Troponin I Q3H Lab 11/25/24 16:27 Completed Troponin I Stat Lab 11/25/24 15:32 Completed Urinalysis and Microscopic Stat Lab 11/25/24 12:45 Completed Medical Decision Narrative: 49-year-old female presents the emergency department with a headache, unknown seizure like activity versus syncopal event, differential diagnose include but not limited to, complex migraines, migraine without aura, migraine with aura, tissue disorder, seizure disorder, cardiac arrhythmia, electrolyte disturbance, toxic ingestion, pseudotumor cerebri among others. I discussed this patient's case with attending physician Will obtain basic laboratory studies, UDS, urinalysis, ethyl alcohol, lactic acid level, T4, TSH, urinalysis, CT head without contrast, as well as EKG, troponin proBNP, and magnesium level. Will give 15 mg IV Toradol, 10 mg IV dexamethasone, 2 mg Compazine and 25 mg IV Benadryl for migraine type cocktail. I was able to obtain the patient's outside records from her admission at [facility], patient was seen by neurologist and had a continuous EEG for 24 hours, which captured multiple episodes as the patient describes, there was no electrographic correlation on EEG, neurologist who consulted on the patient diagnosed the patient with psychogenic nonepileptic spells. She has slated cognitive behavioral outpatient follow-up. I reviewed the patient's CT head without contrast on the corresponding radiologic report, no acute intracranial process. I reviewed the patient's urinalysis, negative leukocyte esterase, negative nitrites, negative hematuria, UDS is positive for benzos. CBC unremarkable CMP is unremarkable, lactic acid within normal limits, no lactic acidosis, ethyl alcohol level within normal limits. Troponin and proBNP within normal limits T4 is mildly elevated at 16 TSH 0.29 Reexamination of the patient at approximately 4:40 PM, patient's headache is improved, no further seizure-like activity, I believe some degree of complex migraine versus psychogenic nonepileptic seizure, as patient has had previous EEG which is negative as noted at outside facility, recommend Excedrin Migraine and other migraine therapies for headache, patient will follow-up with neurologist, does have upcoming MRI brain in the upcoming days, I advised her to keep this appointment. Patient was given strict ED return precautions. 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 Patient voiced understanding. <Abdirizak Mcmahon MD - Last Filed: 11/25/24 19:48> Vital Signs: 11/25/24 12:28 11/25/24 12:41 11/25/24 12:44 Temperature 98.8 F 98.8 F Temperature Source Oral Oral Pulse Rate 83 Pulse Rate [Right] 83 Respiratory Rate 14 14 Blood Pressure 146/88 H Blood Pressure [Right Arm] 146/88 H Blood Pressure Mean [Right Arm] 107 Blood Pressure Source Automatic Cuff Blood Pressure Source [Right Arm] Automatic Cuff Blood Pressure Position Supine Blood Pressure Position [Right Arm] Supine 02 Sat by Pulse Oximetry 97 97 97 Oxygen Delivery Method Room Air Room Air Room Air 11/25/24 13:00 11/25/24 14:01 11/25/24 14:30 Temperature Temperature Source Pulse Rate 81 70 75 Pulse Rate [Right] Respiratory Rate 18 20 21 Blood Pressure 123/69 128/76 124/71 Blood Pressure [Right Arm] Blood Pressure Mean [Right Arm] Blood Pressure Source Blood Pressure Source [Right Arm] Blood Pressure Position Blood Pressure Position [Right Arm] 02 Sat by Pulse Oximetry 96 95 95 Oxygen Delivery Method 11/25/24 15:00 11/25/24 15:30 11/25/24 16:00 Temperature Temperature Source Pulse Rate 63 78 67 Pulse Rate [Right] Respiratory Rate 17 22 22 Blood Pressure 139/66 128/66 131/70 Blood Pressure [Right Arm] Blood Pressure Mean [Right Arm] Blood Pressure Source Blood Pressure Source [Right Arm] Blood Pressure Position Blood Pressure Position [Right Arm] 02 Sat by Pulse Oximetry 95 100 93 L Oxygen Delivery Method 11/25/24 17:04 Temperature 98.8 F Temperature Source Oral Pulse Rate 75 Pulse Rate [Right] Respiratory Rate 19 Blood Pressure 145/87 H Blood Pressure [Right Arm] Blood Pressure Mean [Right Arm] Blood Pressure Source Automatic Cuff Blood Pressure Source [Right Arm] Blood Pressure Position Supine Blood Pressure Position [Right Arm] 02 Sat by Pulse Oximetry Oxygen Delivery Method Room Air Lab Data Lab Results 11/25/24 12:45: Urine Color Yellow, Urine Appearance Clear, Urine pH 6.0, Ur Specific [place] 1.010, Urine Protein Negative, Urine Glucose (UA) Negative, Urine Ketones Negative, Urine Blood Negative, Urine Nitrate Negative, Urine Bilirubin Negative, Urine Urobilinogen 0.2, Ur Leukocyte Esterase Negative, Urine RBC None, Urine WBC Occasional, Ur Squamous Epith Cells 3-5, Urine Bacteria Trace 11/25/24 13:39: Urine Opiates Screen Negative, Urine Methadone Screen Negative, Ur Barbituates Screen Negative, Ur Phencyclidine Scrn Negative, Ur Amphetamines Screen Negative, U Benzodiazepines Scrn Positive H, Urine Cocaine Screen Negative, U Marijuana (THC) Screen Negative 11/25/24 15:32: WBC 6.9, RBC 4.36, Hgb 11.6 L, Hct 36.2 L, MCV 83.0, MCH 26.6 L, MCHC 32.0, RDW 15.1, Plt Count 205, MPV 11.8 H, Neut % (Auto) 69.4, Lymph % (Auto) 21.9, [place] % (Auto) 4.5, Eos % (Auto) 3.5, Baso % (Auto) 0.3, Neut # (Auto) 4.8, Lymph # (Auto) 1.5, [place] # (Auto) 0.3, Eos # (Auto) 0.2, Baso # (Auto) 0.0, Sodium 142, Potassium 4.1, Chloride 109 H, Carbon Dioxide 29, Anion Gap 8.1, BUN 14, Creatinine 0.80, Estimated Creat Clear 78, Estimated GFR 77, Est GFR ( Amer) 93, Glucose 95, Lactate 0.6 L, Calcium 9.5, Magnesium 1.9, Total Bilirubin 0.3, AST 31, ALT 22, Alkaline Phosphatase 109, Troponin I < 0.01, NT-Pro-B Natriuret Pep < 20.0, Total Protein 6.4, Albumin 3.9, Globulin 2.5, Albumin/Globulin Ratio 1.6, TSH 0.29 L, Thyroxine (T4) 16.0 H, Plasma/Serum Alcohol < 10 11/25/24 16:27: Troponin I < 0.01 Orders (Tests/Meds): ED MEDICATIONS Discontinued Medications Generic Name Dose Route Start Last Admin Trade Name Freq PRN Reason Stop Dose Admin Dexamethasone Sodium Phosphate 10 mg 11/25/24 13:27 11/25/24 14:01 Dexamethasone 4mg/Ml 1ml Vial IV 11/25/24 13:28 10 mg ONCE ONE Administration Diphenhydramine HCl 25 mg 11/25/24 13:27 11/25/24 13:38 Diphenhydramine 50mg/Ml Vial IV 11/25/24 13:28 25 mg ONCE ONE Administration Ketorolac Tromethamine 15 mg 11/25/24 13:26 11/25/24 14:01 Ketorolac 30mg/Ml Vial IV 11/25/24 13:27 15 mg ONCE ONE Administration Prochlorperazine Edisylate 10 mg 11/25/24 13:27 11/25/24 13:38 Prochlorperazine 10mg/2ml Vial IV 11/25/24 13:28 10 mg ONCE ONE Administration ORDERS Category Date Time Status CT head/brain wo con Stat Cat Scan 11/25/24 12:44 Completed Complete Blood Count Auto Diff Stat Lab 11/25/24 15:32 Completed Comprehensive Metabolic Panel Stat Lab 11/25/24 15:32 Completed Drug Screen,Urine Stat Lab 11/25/24 13:39 Completed Ethanol [Ethyl Alcohol] Stat Lab 11/25/24 15:32 Completed Lactic Acid Stat Lab 11/25/24 15:32 Completed Magnesium Stat Lab 11/25/24 15:32 Completed NT Pro Brain Natriuretic Pep. Stat Lab 11/25/24 15:32 Completed T4 (Thyroxine) Stat Lab 11/25/24 15:32 Completed TSH [Thyroid Stimulating Hormone] Stat Lab 11/25/24 15:32 Completed Troponin I Q3H Lab 11/25/24 16:27 Completed Troponin I Stat Lab 11/25/24 15:32 Completed Urinalysis and Microscopic Stat Lab 11/25/24 12:45 Completed ECG Data Tracing #1: I reviewed this ECG and interpreted as documented below: Normal sinus rhythm. No ST elevation or depression. QTc normal at 412. Ventricular rate of 79 bpm. Poor quality EKG, will repeat Tracing #2: I reviewed this ECG and interpreted as documented below: Normal sinus rhythm. No ST elevation or depression. QTc normal at 404. Ventricular rate of 79 bpm. No T wave inversions. Medical Decision Narrative: 49-year-old female presents the emergency department with a headache, unknown seizure like activity versus syncopal event, differential diagnose include but not limited to, complex migraines, migraine without aura, migraine with aura, tissue disorder, seizure disorder, cardiac arrhythmia, electrolyte disturbance, toxic ingestion, pseudotumor cerebri among others. I discussed this patient's case with attending physician Will obtain basic laboratory studies, UDS, urinalysis, ethyl alcohol, lactic acid level, T4, TSH, urinalysis, CT head without contrast, as well as EKG, troponin proBNP, and magnesium level. Will give 15 mg IV Toradol, 10 mg IV dexamethasone, 2 mg Compazine and 25 mg IV Benadryl for migraine type cocktail. I was able to obtain the patient's outside records from her admission at [facility], patient was seen by neurologist and had a continuous EEG for 24 hours, which captured multiple episodes as the patient describes, there was no electrographic correlation on EEG, neurologist who consulted on the patient diagnosed the patient with psychogenic nonepileptic spells. She has slated cognitive behavioral outpatient follow-up. I reviewed the patient's CT head without contrast on the corresponding radiologic report, no acute intracranial process. I reviewed the patient's urinalysis, negative leukocyte esterase, negative nitrites, negative hematuria, UDS is positive for benzos. CBC unremarkable CMP is unremarkable, lactic acid within normal limits, no lactic acidosis, ethyl alcohol level within normal limits. Troponin and proBNP within normal limits T4 is mildly elevated at 16 TSH 0.29 Reexamination of the patient at approximately 4:40 PM, patient's headache is improved, no further seizure-like activity, I believe some degree of complex migraine versus psychogenic nonepileptic seizure, as patient has had previous EEG which is negative as noted at outside facility, recommend Excedrin Migraine and other migraine therapies for headache, patient will follow-up with neurologist, does have upcoming MRI brain in the upcoming days, I advised her to keep this appointment. Patient was given strict ED return precautions. 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 Patient voiced understanding. I was consulted by the GEOVANNA, and we discussed the complexity of the problems being addressed. I approve the treatment and management plan for this patient's care in the emergency department, thus performing a substantive portion of the medical decision making. Abdirizak Mcmahon MD Critical Care <RK Rae - Last Filed: 11/25/24 16:46> Critical Care Time Critical Care Time: No
--- OUTSIDE RECORDS SUMMARY | 2024-11-25 12:57 | XMS_ITS | Clinical Summary ---
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 Encounter for other specified surgical aftercare DDD, LUMBOSACRAL SPINE WITH RADICULOPATH Y [id number] (SNOMED CT) 05/11 Active 05/16 Ramesh Garcia MD Lumbosacral radiculopathy HERNIATED LUMBAR DISK WITH RADICULOPATH Y 897448079 (SNOMED CT) 05/03 Active 05/03 Ramesh Garcia MD Lumbar disc prolapse with radiculopathy NECK PAIN, CHRONIC [id number] (SNOMED CT) 04/26 Active 04/26 Janet Ko MA Chronic neck pain HERNIATED LUMBAR DISC 160416074 (SNOMED CT) 01/21 Active 01/21 Azeem Bartlett MA Prolapsed lumbar intervertebral disc LUMBAR RADICULOPATH Y, LEFT 929779272 (SNOMED CT) 12/22 Active 12/22 Azeem Bartlett MA Lumbar radiculopathy Medications Medication Instructions Start Date Stop Date Generic Name NDC Provider NORCO 5-325 MG ORAL TABLET 1 tid HYDROCODONE-ACETA MINOPHEN [id number] Ramesh Naylor MD NORCO 5-325 MG ORAL TABLET 1 tid HYDROCODONE-ACETA MINOPHEN [id number] Ramesh Naylor MD NORCO 10-325 MG ORAL TABLET 1 tid HYDROCODONE-ACETA MINOPHEN 29798679096 Ramesh Naylor MD CYCLOBENZAPRINE HCL 10 MG TABS [facility] CYCLOBENZAPRINE HCL [id number] Azeem Bartlett MA IBUPROFEN 800 MG TABS [facility] IBUPROFEN [id number] Azeem Bartlett MA LEVO-T 112 MCG TABS [facility] LEVOTHYROXINE SODIUM [id number] Azeem Bartlett MA Medications Administered No information available. Allergies, Adverse Reactions, Alerts Observed No Known Drug Allergies at Results No information available. Plan of Care Type Date Detail Pending order MRI Cervical Pending order MRI Cervical Pending order MRI Lumbar Pending order BRIEN -- x 2 injec tions then follow up with PM&R Procedures Code Procedure Name Date Entry Date [facility]-[id number] Flu Shot Previously Received [facility]-[id number] Medications Documented 1124F No ACP/POA documented but discussed 03/03 G8427 Medication Reconcili ation Completed CPT-G8427 G8730 Pain Assessment posi tive with follow up plan G8417 BMI above normal, f/u plan documented 201 10/02/09 1036F No tobacco use currently 201 10/02/09 [id number] No pneumococcal vaccine received; no reas on G8483 No flu shot received; allergy etc. 05/03 72266 MRI Lumbar Spine 1124F No ACP/POA documented but discussed 02/24 G8427 Medication Reconcili ation Completed CPT-G8427 G8730 Pain Assessment posi tive with follow up plan G8417 BMI above normal, f/u plan documented 201 10/02/02 1036F No tobacco use currently 201 10/02/02 1137B3F No pneumococcal vaccine received; no reas on G8483 No flu shot received; allergy etc. 04/26 [facility]-[id number] Medications Documented G8427 Medication Reconcili ation Completed CPT-G8427 G8730 Pain Assessment posi tive with follow up plan G8417 BMI above normal, f/u plan documented 201 10/01/30 1036F No tobacco use currently 201 10/01/30 [id number] No pneumococcal vaccine received; no reas on G8483 No flu shot received; allergy etc. 1124F No ACP/POA documented but discussed 02/21 [facility]-[id number] Medications Documented G8427 Medication Reconcili ation Completed CPT-G8427 G8730 Pain Assessment posi tive with follow up plan G8417 BMI above normal, f/u plan documented 201 09/30/29 1036F No tobacco use currently 201 09/30/29 0717N7X No pneumococcal vaccine received; no reas on G8483 No flu shot received; allergy etc. 01/21 1124F No ACP/POA documented but discussed 01/21 1124F No ACP/POA documented but discussed 12/22 G8483 No flu shot received; allergy etc. 12/22 8811N3N No pneumococcal vaccine received; no reas on 1036F No tobacco use currently 201 09/29/30 G8417 BMI above normal, f/u plan documented 201 09/29/30 G8730 Pain Assessment posi tive with follow up plan G8427 Medication Reconcili ation Completed CPT-G8427 [id number] Medications Documented Vital Signs Date Name Value [...]
--- OUTSIDE RECORDS SUMMARY | 2024-11-25 13:00 | XMS_ITS | Continuity of Care Document ---
Author Organization [facility] Address [facility] [place] [address] Phone Care Team Providers Care Crisis Specialist Name Role Phone Abdulkadir Montoya MD Primary Care Provider [phone] Encounters Date Type Department Care Team Description 11/20/2024 Results Follow-Up [facility] Sujata SOL [address] [place] [address] Abdulkadir Montoya MD THYROID STIMULATING HORMONE, T4, FREE (THYROXINE), SEDIMENTATION RATE AUTOMATED, Additional followed-up results: 2 11/19/2024 2:00 PM EDT Office Visit [facility] [address] [place] [address] Abdulkadir Montoya MD Seizure-like activity (HCC) (Primary Dx) 11/18/2024 Telephone [facility] [address] [place] [address] Abdulkadir Montoya MD Appointment Needed (hospital f/u for seizure like episodes. discharged 11/17/ no bal) 11/16/2024 6:38 PM EDT - 11/17/2024 5:57 PM EDT Hospital Encounter [facility] [address] [address] [place] [place] [address] Arcadio Ruiz MD Nienaber, Kirk A, MD Discharge Disposition: Home or Self Care 11/16/2024 Travel 11/14/2024 Refill [facility] [place] [address] [place] [address] Abdulkadir Montoya MD Medication Refill 11/12/2024 11:30 AM EDT Office Visit [facility] Urogynecology [address] [address] Nicolette Phillips PA-C History of pelvic surgery (Primary Dx); History of repair of rectocele; History of suburethral sling procedure 11/06/2024 12:23 PM EDT - 11/06/2024 3:24 PM EDT Emergency [facility] [address] [place] [address] Corazon Salvador MD Right leg pain (Primary Dx); Right hip pain Discharge Disposition: Home or Self Care 11/02/2024 Refill [facility] Su[facility]ata [facility] [address] [place] [address] Abdulkadir Montoya MD Medication Refill 10/30/2024 Results Follow-Up [address] [place] [address] Arminda Wilson APRN MM MAMMO DIGITAL TRACIE SCREEN BILAT 10/30/2024 9:25 AM EDT - 10/30/2024 11:59 PM EDT Hospital Encounter [address] [place] [address] Arminda Wilson APRN Encounter for screening mammogram for malignant neoplasm of breast Discharge Disposition: Home or Self Care 10/18/2024 Refill [facility] [place] [address] [place] [address] Abdulkadir Montoya MD Medication Refill 10/16/2024 Refill [facility] [place] [address] [place] [address] Abdulkadir Montoya MD Medication Refill 10/07/2024 Results Follow-Up [facility] [place] [address] [facility] [address] [place] [address] Judith Lomax MD THYROID STIMULATING HORMONE 10/07/2024 Refill SEP [address] [place] [address] Arminda Wilson, EMELY Medication Refill 10/07/2024 8:30 AM EDT - 10/07/2024 11:59 PM EDT Hospital Encounter [facility] [address] 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 Discharge Disposition: Home or Self Care 10/06/2024 Refill SEP [address] [place] [address] Abdulkadir Montoya MD Medication Refill 09/24/2024 10:45 AM EDT Office Visit [address] [address] Leonides Stroud, DPDelfina Stress reaction of left foot with routine healing, subsequent encounter (Primary Dx); Peroneal tendinitis of left lower extremity; Sprain of tarsometatarsal ligament of left foot, subsequent encounter 09/20/2024 Refill SEP [address] [place] [address] Arminda Wilson, EMELY Medication Refill 09/17/2024 Refill SEP [address] [place] [address] Abdulkadir Montoya MD Medication Refill 09/17/2024 Refill SEP [address] [place] [address] Abdulkadir Montoya MD Medication Refill 09/16/2024 Travel 09/16/2024 9:44 AM EDT - 09/16/2024 1:14 PM EDT Emergency [facility] [address] [place] [address] Abdiel Barclay MD Acute costochondritis (Primary Dx) Discharge Disposition: Home or Self Care 09/16/2024 Nurse Triage [facility] [address] [place] [address] Tawny Mo RN 09/13/2024 Telephone SEP [address] [place] [address] Abdulkadir Montoya MD Other (FYI: Pt having muscle spasm); Patient Returning Call ( pt son called to say that they took her to the ED ) 09/11/2024 Refill [facility] [address] [address] Yanick Odonnell APRN Medication Refill 09/10/2024 Refill SEP [address] [place] [address] Abdulkadir Montoya MD Medication Refill 09/08/2024 Refill SEP [address] [place] [address] Abdulkadir Montoya MD Medication Refill; Central Patient Navigator Outreach (Med Refill ) 09/03/2024 2:30 PM EDT Clinical Support [address] [address] Reji Oleary, JAYNA Stress reaction of left foot, initial encounter (Primary Dx); Sprain of tarsometatarsal ligament of left foot, initial encounter 09/03/2024 11:00 AM EDT Ancillary Procedure [address] [address] Leonides Stroud DPM Stress reaction of left foot, initial encounter; Peroneal tendinitis of left lower extremity 09/03/2024 10:45 AM EDT Ancillary Procedure [address] [address] Leonides Stroud DPM Stress reaction of left foot, initial encounter; Peroneal tendinitis of left lower extremity 09/03/2024 10:30 AM EDT Office Visit [facility] [address] [place] [address] Leonides Stroud, BOSSMAN Sprain of tarsometatarsal ligament of left foot, initial encounter (Primary Dx); Stress reaction of left foot, initial encounter; Left foot pain 08/29/2024 Refill [facility] Sujata [address] [place] [address] Arminda Wilson APRN Medication Refill; Central Patient Navigator Outreach (Med Refill 30/) 08/20/2024 3:15 PM EDT Office Visit [facility] [address] [facility] [address] [place] [address] Yanick Odonnell APRN Stress reaction of left foot, initial encounter (Primary Dx); Peroneal tendinitis of left lower extremity; Painful os peroneum syndrome 08/20/2024 Travel 08/20/2024 1:23 PM EDT - 08/20/2024 3:03 PM EDT Emergency [facility] Emergency [address] [place] [address] Thor Conway MD Foot pain, left (Primary Dx) Discharge Disposition: Home or Self Care 08/13/2024 Refill [facility] Sujata [address] [place] [address] Abdulkadir Montoya MD Medication Refill 08/13/2024 Refill [facility] Urogynecology [address] [address] Elmira Mendoza MD Medication Refill 08/09/2024 Orders Only [facility] Sujata [address] 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 (Primary Dx); Class 3 severe obesity due to excess calories with serious comorbidity and body mass index (BMI) of 60.0 to 69.9 in adult 07/24/[address] [place] [address] Katie, Arminda, [employer] Medication Refill 07/24/[address] [place] [address] [place], Arminda, [employer] Medication Refill 07/19/2024 Travel 07/19/2024 11:30 AM EDT Office Visit [address] [place] [address] Abdulkadir Montoya MD Acute bacterial sinusitis (Primary Dx) 07/18/[address] [place] [address] [place], Arminda, [employer] Medication Refill 07/16/2024 10:10 AM EDT - 07/16/2024 11:59 PM EDT Hospital Encounter [facility] [address] [place] [id number] 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 Discharge Disposition: Home or Self Care 07/14/[address] [place] [address] Abdulkadir Montoya MD Medication Refill 07/05/[address] [place] [address] Abdulkadir Montoya MD Medication Refill 06/17/[address] [place] [address] Abdulkadir Montoya MD Medication Refill 06/08/[address] [place] [address] Abdulkadir Montoya MD Medication Refill 06/07/2024 Travel 06/07/2024 11:45 AM EST Office Visit [address] [place] [address] Katie, Arminda, [employer] Viral URI with cough (Primary Dx); Body aches 06/03/[address] [place] [address] [place], Arminda, [employer] Medication Refill 05/22/2024 Travel 05/22/2024 11:45 AM EST Office Visit [address] [place] [address] Katie, Arminda, [employer] Rhinosinusitis (Primary Dx); Nasal congestion 05/19/[address] [place] [address] Abdulkadir Montoya MD Medication Refill 05/19/[address] [place] [address] Abdulkadir Montoya MD Medication Refill 05/15/2024 Travel 05/15/2024 11:00 AM EST Office Visit [facility] Urogynecology [address] [address] Nicolette Phillips PA-C Postoperative examination (Primary Dx); Female cystocele; Rectocele; Stress incontinence in female; Dysuria 05/14/2024 Travel 05/14/2024 2:20 PM EST Office Visit [address] [place] [address] Abdulkadir Montoya MD Acute cystitis with hematuria (Primary Dx) 05/07/[address] [place] [address] Abdulkadir Montoya MD Medication Refill 05/02/2024 1:03 PM EST - 05/02/2024 11:59 PM EST Hospital Encounter [address] [place] [address] [place], Arminda, [employer] Abdominal pain, LUQ (left upper quadrant) Discharge Disposition: Home or Self Care 04/28/2024 Orders Only [address] [place] [address] [place], Arminda, [employer] Abdominal pain, LUQ (left upper quadrant) (Primary Dx) 04/26/2024 Travel 04/26/2024 1:15 PM EST Office Visit [address] [place] [address] Katie, Arminda, [employer] Abdominal pain, LUQ (left upper quadrant) (Primary Dx); Elevated glucose 04/19/[address] [place] [address] Abdulkadir Montoya MD Medication Refill 04/14/2024 Refill [facility] [address] [facility] [address] [place] [address] Judith Lomax MD Medication Refill 04/13/[address] [place] [address] Abdulkadir Montoya MD Medication Refill 04/10/[address] [place] [address] Beverly Bradley APRN Medication Refill 04/05/2024 Telephone [facility] Urogynecology [address] [phone] Jessi Leon LPN Post-op Call 04/04/2024 Travel 04/04/2024 1:40 PM EST - 04/04/2024 3:25 PM EST Surgery [facility] [address] [place] [address] Elmira Mendoza MD ANTERIOR AND POSTERIOR REPAIR (CYSTOCELE AND RECTOCELE REPAIR) 04/04/2024 12:20 PM EST Anesthesia Event [facility] [address] [place] [address] Wanda Miranda MD Zehnder, Wende, APRN 04/04/2024 10:44 AM EST - 04/04/2024 5:06 PM EST Hospital Encounter [facility] SAME DAY SURGERY [address] [place] [address] Elmira Mendoza MD Female cystocele; Rectocele; Stress incontinence in female Discharge Disposition: Home or Self Care 04/03/2024 Refill [facility] [place] [address] [place] [address] Beverly Bradley APRN Medication Refill 04/02/2024 10:00 AM EST Office Visit [facility] [place] [address] [place] [address] Arminda Wilson APRN Personal history of asthma (Primary Dx) 04/01/2024 Travel 03/28/2024 Orders Only [facility] U[facility]ne[facility] [address] [address] Jessi Leon LPN Female cystocele (Primary Dx); Rectocele; Stress incontinence in female 03/28/2024 Telephone [facility] Urogynecology [address] [address] Jessi Leon LPN Pre-op Call 03/28/2024 Telephone EDG PRE-ADMIT TESTING [facility] [place] [address] Rae Dawn, JEREL Pre-op Call 03/26/2024 Refill [facility]P [facility]jata [facility] [place] [address] Abdiel Lucas MD Medication Refill 03/25/2024 Refill [facility] [place] [address] [place] [address] Abdulkadir Montoya MD Medication Refill 03/22/2024 Travel 03/19/2024 Travel 03/19/2024 9:15 AM EST Office Visit [facility] [place] [facility] [address] [place] [address] Arminda Wilson, [employer] Hospital discharge follow-up (Primary Dx); Mild intermittent asthma with acute exacerbation; Intravenous infiltration, subsequent encounter 03/14/2024 6:56 PM EST - 03/14/2024 7:16 PM EST Emergency [facility] [place] [address] Blessing Rios MD Hand swelling (Primary Dx) Discharge Disposition: Home or Self Care 03/14/2024 Nurse Triage [facility] Nurse Now [address] [place] [phone] Silas Rodriguez RN 03/14/2024 Travel 03/14/2024 1:47 PM EST - 03/14/2024 4:44 PM EST Emergency [facility] [address] [place] [id number] Ce Philippe DO Mild intermittent asthmatic bronchitis with acute exacerbation (Primary Dx) Discharge Disposition: Home or Self Care 03/13/[address] [place] [address] Abdulkadir Montoya MD Medication Refill 03/13/2024 Travel 03/13/2024 1:15 PM EST Office Visit [address] [place] [address] Arminda Wilson, [employer] Pre-op examination (Primary Dx); Female cystocele; Rectocele; Stress incontinence in female; Post-operative nausea and vomiting; Bronchitis 03/12/[address] [place] [address] Abdulkadir Montoya MD Medication Refill 02/28/2024 Travel 02/28/2024 1:45 PM EST Office Visit [address] [place] [address] Arminda Wilson, [employer] Bronchitis (Primary Dx) 02/27/2024 Travel 02/27/2024 Refill SEP [address] [place] [address] Abdiel Lucas MD Medication Refill 02/23/2024 Refill [facility] [place] [address] [place] [address] Abdulkadir Montoya MD Medication Refill 02/23/2024 Refill [facility] [place] [address] [place] [address] Arminda Wilson APRN Medication Refill 02/14/2024 Refill [facility] [place] [address] [place] [address] Abdulkadir Montoya MD Medication Refill 02/14/2024 Refill [facility] [place] [address] 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 [address] Abdulkadir Montoya MD Medication Refill 01/31/2024 Refill [facility] [place] [address] [place] [address] Abdiel Lucas MD Medication Refill 01/24/2024 Telephone [facility] Uro[facility] [address] [address] Mary Vargas NA Other 01/24/2024 2:30 PM EDT Office Visit [facility] Urogynecology [address] [address] Elmira Mendoza MD Female cystocele (Primary Dx); Rectocele; Stress incontinence in female 01/23/2024 Travel 01/17/2024 Refill [facility] [address] [place] [address] Arminda Wilson APRN Medication Refill 12/27/2023 Refill SEP [address] [place] [address] Abdulkadir Montoya MD Medication Refill 12/24/2023 Refill [facility] [place] [address] [place] [address] Abdiel Lucas MD Medication Refill 12/21/2023 9:20 AM EDT Office Visit [address] [place] [address] Abdulkadir Montoya MD YNES positive (Primary Dx) 12/20/2023 Travel 12/17/2023 Refill SEP [address] [place] [address] Abdulkadir Montoya MD Medication Refill 12/14/2023 Refill [facility] [address] [place] [address] Arminda Wilson, EMELY Medication Refill 12/12/2023 10:50 AM EDT Clinical Support [address] [place] [address] Kristin Acevedo E Joint swelling 12/11/2023 Travel 12/11/2023 4:20 PM EDT Office Visit [place] [address] [place] [address] Abdulkadir Montoya MD Joint swelling (Primary Dx) 11/29/2023 Refill [facility] [address] [place] [address] Abdiel Lucas MD Medication Refill 11/20/2023 Refill [facility] [address] [place] [address] Abdulkadir Montoya MD Medication Refill 11/19/2023 Refill [facility] [address] 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 (Primary Dx); Class 3 severe obesity due to excess calories with serious comorbidity and body mass index (BMI) of 60.0 to 69.9 in adult (HCC) 10/23/[address] [place] [address] Abdulkadir Montoya MD Medication Refill 10/23/[address] [place] [address] Abdiel Lucas MD Medication Refill 10/23/[address] [place] [address] Katie, Arminda, [employer] Medication Refill 10/23/[address] [place] [address] Abdulkadir Montoya MD Medication Refill 10/22/2023 Refill [facility] [place] [facility] [address] [place] [address] Nicolette Lomeli MD Medication Refill 10/19/2023 Travel 10/13/2023 Orders Only [facility] [address] [facility] [address] [place] [address] Judith Lomax MD 10/12/2023 9:27 AM EDT - 10/12/2023 11:59 PM EDT Hospital Encounter [facility] [address], [place] [address] 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 Discharge Disposition: Home or Self Care 10/10/2023 11:39 AM EDT - 10/10/2023 11:59 PM EDT Hospital Encounter [facility] [address], [place] [address] Costochondritis; Bronchitis Discharge Disposition: Home or Self Care 10/10/2023 Travel 10/10/2023 Telephone [facility] Su[facility]ata [address] [place] [address] Abdulkadir Montoya MD 911/Red Flag (declined emergency services/scheduled appt today) 10/10/2023 11:20 AM EDT Office Visit [facility]ata [address] [place] [address] Aracely Montoya MD Costochondritis (Primary Dx); Bronchitis 10/03/2023 8:30 AM EDT Office Visit [facility] [address] [address] Elmira Mendoza MD Female cystocele (Primary Dx); Rectocele; Stress incontinence in female; Vaginal atrophy 10/02/2023 Travel 09/26/2023 Refill [facility] [place] [facility] [address] [place] [address] Jj Garcia MD Medication Refill 09/24/[address] [place] [address] Arminda Wilson APRN Medication Refill 09/23/[address] [place] [address] Abdiel Lucas MD Medication Refill 09/22/2023 Orders Only [address] [place] [address] Abdulkadir Montoya MD Medication management (Primary Dx) 09/21/2023 Travel 09/21/2023 4:00 PM EDT Office Visit [address] [place] [address] Abdulkadir Montoya MD Acute midline low back pain without sciatica (Primary Dx) 09/13/2023 2:50 PM EDT Office Visit [facility] [address] [address] Genaro Campa MD Pressure sensation in both ears (Primary Dx); Abnormal auditory perception, bilateral; Ear pressure, right 09/08/[address] [place] [address] Nicolette Lomeli MD Medication Refill 09/06/2023 Travel 09/06/2023 9:00 AM EDT Office Visit [address] [place] [address] Crista Briseno DO Hospital discharge follow-up (Primary Dx); Ear pressure, right; Screening for colon cancer; Female bladder prolapse 09/04/2023 Patient Outreach [facility] Care Managment [address] Appointment [place] [address] Saige Garrett RN Hospital Follow Up; Care Transition; CM - Medication Reconciliation 09/01/2023 11:33 AM EDT - 09/02/2023 11:49 AM EDT Hospital [facility] [address] [place] [id number] Daniel García MD Alexis, Jacques Feres, MD Non-recurrent acute suppurative otitis media of right ear without spontaneous rupture of tympanic membrane (Primary Dx); Mild intermittent asthma, unspecified whether complicated Discharge Disposition: Home or Self Care 09/01/2023 Travel 08/28/2023 Travel 08/28/2023 11:30 AM EDT Office Visit [address] [place] [address] Abdulkadir Montoya MD Acute bacterial sinusitis (Primary Dx) 08/23/2023 Refill [place] [address] [place] [address] [place], Arminda, [employer] Medication Refill 08/23/2023 Refill [facility] [address] [place] [address] Abdiel Lucas MD Medication Refill 08/23/[address] [place] [address] Abdiel Lucas MD Medication Refill 08/23/[address] [place] [address] Katie, Arminda, [employer] Medication Refill 08/21/2023 12:04 PM EDT - 08/21/2023 11:59 PM EDT Hospital Encounter [place] [address] 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 [place], [place] [address] Abdiel Lucas MD Medication Refill 07/29/[address] [place], [place] [address] Katie, Arminda, [employer] Medication Refill 07/12/2023 3:45 PM EDT Office Visit [address] 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 (Primary Dx) 06/29/[address] [place] [address] Nicolette Lomeli MD Medication Refill 06/29/[address] [place] [address] Katie, Arminda, [employer] Medication Refill 06/28/[address] [place] [address] [place], Arminda, [employer] Medication Refill 06/28/[address] [place] [address] Abdiel Lucas MD Medication Refill 06/16/2023 11:08 AM EST - 06/16/2023 11:59 PM EST Hospital Encounter [facility] [address], [place] [address] Primary hypothyroidism Discharge Disposition: Home or Self Care 06/02/2023 Travel 06/02/2023 11:10 AM EST Office Visit [address] [place] [address] Nicolette Lomeli MD Cellulitis of leg, right (Primary Dx) 06/02/[address] [place] [address] Abdulkadir Montoya MD Appointment Needed 06/01/[address] [place] [address] Nicolette Lomeli MD Medication Refill 05/30/[address] [place] [address] Katie, Arminda, [employer] Medication Refill 05/30/[address] [place] [address] Nicolette Lomeli MD Medication Refill 05/29/[address] [place] [address] Arminda Wilson, [employer] Medication Refill 05/29/[address] [place] [address] Abdiel Lucas MD Medication Refill 05/25/2023 Orders Only [facility] Sleep Disorder Center [address] [place] [address] Kristen Louie MD Obstructive sleep apnea (Primary Dx) 05/22/[address] [place] [address] Abdulkadir Montoya MD Medication Refill 05/17/2023 Orders Only [facility] Sleep Medicine [address] [place] [address] Kristen Louie MD Obstructive sleep apnea (Primary Dx) 05/09/2023 11:00 AM EST Office Visit [facility] [facility] [address] [facility] [place] [phone] Kristen Louie MD Obesity, morbid, BMI 50 or higher (HCC) (Primary Dx); Obstructive sleep apnea 05/04/2023 Travel 05/02/2023 5:16 PM EST - 05/02/2023 11:59 PM EST Hospital Encounter [place] [facility] [place] [address] Nicolette Lomeli MD Cough, persistent Discharge Disposition: Home or Self Care 05/02/2023 12:00 PM EST Office Visit [facility] [address] [place] [address] Harmony Romo PA Drug allergy (Primary Dx); Asthma in adult without complication, unspecified asthma severity, unspecified whether persistent; Urticaria; Angioedema, initial encounter; Seasonal and perennial allergic rhinitis 05/01/2023 Refill [place] [address] [place] [address] Abdulkadir Montoya MD Medication Refill 05/01/2023 Refill [facility] [place] [address] [place] [address] Abdiel Lucas MD Medication Refill 05/01/2023 Refill [facility] [place] [address] [place] [address] Arminda Wilson APRN Medication Refill 04/27/2023 Travel 04/26/2023 1:40 PM EST Office Visit [facility] [place] [address] [place] [address] Nicolette Lomeli MD Subacute cough (Primary Dx); Peripheral edema; Cough, persistent 04/21/2023 Orders Only [facility] [address] [place] [address] Kristen Louie MD Obstructive sleep apnea (Primary Dx) 04/20/2023 Refill [facility] [address] [place] [address] Abdulkadir Montoya MD Medication Refill 04/20/2023 7:00 PM EST - 04/20/2023 11:59 PM EST Hospital Encounter [facility] [address] [place] [address] Obstructive sleep apnea (Primary Dx); Excessive sleepiness; Obesity, morbid, BMI 50 or higher (HCC); TANIA (obstructive sleep apnea); Primary snoring Discharge Disposition: Home or Self Care 04/18/2023 Orders Only [address] [address] Judith Lomax MD 04/14/2023 3:16 PM EST - 04/14/2023 11:59 PM EST Hospital Encounter [address] [place] [address] Primary hypothyroidism Discharge Disposition: Home or Self Care 04/14/2023 3:00 PM EST Office Visit [address] [address] Judith Lomax MD Primary hypothyroidism (Primary Dx); Conchis's disease 04/13/2023 Travel 04/07/2023 Travel 04/07/2023 10:20 AM EST Office Visit [facility] [place] [address] Abdulkadir Montoya MD Cough, unspecified type (Primary Dx) 04/06/2023 Patient Outreach [facility] Transformation [address] [place] [address] Babita Raymond, JEREL Hospital Follow Up; Care Transition; CM - Medication Reconciliation 04/06/2023 Refill [facility] [address] [place] [address] Katie, Arminda, [employer] Medication Refill 04/05/[address] [place], [place] [address] Abdiel Lucas MD Medication Refill 04/05/[address] [place], [place] [address] Katie, Arminda, [employer] Medication Refill 04/03/2023 12:40 PM EST - 04/05/2023 5:19 PM EST Hospital Encounter [facility] [address] [place] [address] [facility] [address] [place], [place] [id number] Ben Li MD Gaston, Richard L, MD Multifocal pneumonia (Primary Dx); Hypoxia Discharge Disposition: Home or Self Care 04/03/2023 Orders Only [address] [place], [place] [address] Abdulkadir Montoya MD Rhinosinusitis; Acute pain of left knee 04/03/2023 Travel 03/22/2023 Travel 03/22/2023 3:00 PM EST Office Visit [address] [place], [place] [address] [place], Arminda, [employer] Bilirubin in urine (Primary Dx); Dark urine 03/22/[address] [place], [place] [address] [place], Arminda, [employer] Medication Refill 03/19/[address] [place], [place] [address] [place], Arminda, [employer] Medication Refill 03/19/[address] [place], [place] [address] [place], Arminda, [employer] Medication Refill 03/10/[address] [place], [place] [address] Katie, Arminda, [employer] Medication Refill 03/07/[address] [place] [address] Abdiel Lucas MD Medication Refill 03/06/2023 9:40 AM EST Office Visit [facility] [address] [place] [address] Abdulkadir Montoya MD Acute bronchitis, unspecified organism (Primary Dx) 03/02/2023 2:15 PM EST Office Visit [facility] [address] [facility] [address] [place] [address] Pat Castro MD Positive YNES (antinuclear antibody) (Primary Dx); Skin eruption; Obesity, morbid, BMI 50 or higher (HCC); Anti-TPO antibodies present; Primary osteoarthritis involving multiple joints Discharge Disposition: Home or Self Care 02/24/2023 Travel 02/24/2023 12:25 PM EDT - 02/24/2023 4:17 PM EDT Emergency [facility] Emergency [address] [facility] [place] [address] Jamaica Thompson MD Allergic reaction, initial encounter (Primary Dx) Discharge Disposition: Home or Self Care 02/16/2023 Refill [facility] [address] [place] [address] Abdulkadir Montoya MD Medication Refill 02/14/2023 Travel 02/14/2023 8:33 AM EDT - 02/14/2023 11:59 PM EDT Hospital Encounter [facility] [address] [facility] [place] [address] Arminda Wilson APRN Peripheral edema Discharge Disposition: Home or Self Care 02/14/2023 12:00 PM EDT Office Visit [facility] [address] [place] [address] Kristen Louie MD Excessive sleepiness (Primary Dx); Obesity, morbid, BMI 50 or higher (HCC); TANIA (obstructive sleep apnea); Primary snoring 02/09/2023 Refill [facility] [address] [place] [address] Arminda Wilson APRN Medication Refill 02/09/2023 9:53 AM EDT - 02/09/2023 11:59 PM EDT Hospital Encounter [facility] [address] [place] [address] Positive YNES (antinuclear antibody) Discharge Disposition: Home or Self Care 02/08/2023 2:30 PM EDT Telemedicine [facility] [address] [place] [address] Pat Castro MD Positive YNES (antinuclear antibody) (Primary Dx); Skin eruption; Obesity, morbid, BMI 50 or higher (HCC) 02/02/2023 Refill [place] [address] [place] [address] Abdiel Lucas MD Medication Refill 01/24/2023 7:00 PM EDT - 01/24/2023 11:59 PM EDT Hospital Encounter [facility] Sleep Disorder [facility] [address] [place] [id number] Excessive sleepiness; Primary snoring; Obstructive sleep apnea; Morbid obesity (HCC) Discharge Disposition: Home or Self Care 01/18/2023 Travel 01/18/2023 Refill [place] [address] [place] [address] Abdulkadir Montoya MD Medication Refill 01/18/2023 2:15 PM EDT Office Visit [facility] [place] [address] [place] [address] Arminda Wilson APRN Hospital discharge follow-up (Primary Dx); Peripheral edema; Mild intermittent asthma with exacerbation 01/15/2023 3:29 AM EDT - 01/15/2023 5:18 AM EDT Emergency [facility] [place] [address] Kenia Lindsey MD Mild intermittent asthma without complication (Primary Dx) Discharge Disposition: Home or Self Care 01/06/2023 Telephone [facility] [address] [place] [address] Pat Castro MD Schedule Appointment 01/06/[address] [place] [address] Abdiel Lucas MD Medication Refill 01/06/[address] [place] [address] Katie, Arminda, [employer] Medication Refill 12/21/2022 Travel 12/21/[address] [place] [address] [place], Arminda, [employer] Medication Refill 12/21/2022 2:45 PM EDT Office Visit [address] [place] [address] [place], Arminda, [employer] Chronic midline low back pain with left-sided sciatica (Primary Dx); Medication management; Screening for colon cancer; Dysphagia, unspecified type 12/20/2022 10:45 AM EDT Office Visit [facility] Sleep Medicine [address] [place] [address] Kristen Louie MD Excessive sleepiness (Primary Dx); Primary snoring; Obstructive sleep apnea; Morbid obesity (HCC) 12/19/[address] [place] [address] Abdulkadir Montoya MD Medication Refill 12/17/[address] [place] [address] Katie, Arminda, [employer] Medication Refill 12/17/[address] [place] [address] Abdulkadir Montoya MD Medication Refill 12/08/[address] [place] [address] Abdiel Lucas MD Medication Refill 12/07/2022 3:30 PM EDT Office Visit [address] [place] [address] Katie, Arminda, [employer] Rhinosinusitis (Primary Dx); Suspected sleep apnea 12/06/2022 Travel 12/03/2022 Travel 12/03/2022 7:23 AM EDT - 12/03/2022 11:59 PM EDT Hospital Encounter [address] [place] [phone] Katie, Arminda, [employer] Pharyngeal dysphagia Discharge Disposition: Home or Self Care 11/24/2022 11:30 AM EDT Office Visit [address] [place] [address] [place], Arminda, [employer] Pharyngeal dysphagia (Primary Dx); Rash 11/09/2022 Refill [facility] [address] [place] [address] Abdiel Lucas MD Medication Refill 11/09/[address] [place], [place] [address] Abdulkadir Montoya MD Medication Refill 11/03/2022 Telephone [facility] [address] [place] [address] Victoria Lara, Clerical Staff Other 11/01/2022 Telephone [facility] [address] [place] [address] Victoria Lara, Clerical Staff Other 10/30/2022 Orders Only [address] [place] [address] Katie, Arminda, [employer] UTI (urinary tract infection), uncomplicated (Primary Dx) 10/28/2022 Telephone [facility] [address] [place] [address] Victoria Lara, Clerical Staff Other 10/28/2022 11:45 AM EDT Office Visit [place] [address] [place] [address] [place], Arminda, [employer] Urinary frequency (Primary Dx); Prediabetes; Obesity, morbid, BMI 50 or higher (HCC); Lumbar pain 10/09/[address] [place] [address] [place], Arminda, [employer] Medication Refill 10/04/2022 Orders Only [address] [place] [address] [place], Arminda, [employer] Positive YNES (antinuclear antibody) (Primary Dx) 09/23/[address] [place] [address] Abdulkadir Montoya MD Results 09/23/2022 Orders Only [address] [place] [address] [place], Arminda, [employer] 09/22/2022 2:30 PM EDT Office Visit [address] [place] [address] [place], Arminda, [employer] Stasis dermatitis of both legs (Primary Dx); Contact dermatitis, unspecified contact dermatitis type, unspecified trigger; Acquired hypothyroidism; Red face 09/21/2022 Travel 09/16/2022 Travel 09/16/2022 2:58 PM EDT - 09/16/2022 11:59 PM EDT Hospital Encounter [address] [place] [address] Katie, Arminda, [employer] Encounter for screening mammogram for breast cancer Discharge Disposition: Home or Self Care 09/15/[address] [place] [address] [place], Arminda, [employer] Medication Refill 09/08/[address] [place] [address] Nicolette Lomeli MD Medication Refill 08/19/2022 2:40 PM EDT Ancillary Procedure [facility] [address] [facility] [address] [place] [address] Kendall Garcia MD Acute pain of left knee 08/19/2022 2:15 PM EDT Office Visit [facility] [address] [place] [address] Kendall Garcia MD Acute pain of left knee (Primary Dx) 08/10/[address] [place] [address] Aracely Montoya MD Medication Refill 08/04/2022 3:00 PM EDT Office Visit [address] [place] [address] [place] alvar[place], [employer] Rash (Primary Dx); Acute pain of left knee; History of COVID-19 08/03/2022 Travel 06/30/[address] [place] [address] Arminda Wilson, [employer] Medication Refill 06/16/[address] [place] [address] Abdulkadir Montoya MD Medication Refill 06/16/[address] [place] [address] Abdulkadir Montoya MD Medication Refill 06/14/2022 1:45 PM EST Office Visit [address] [place] [address] Katie, Arminda, [employer] Annual physical exam (Primary Dx); Chronic midline low back pain with left-sided sciatica; Medication management; Acquired hypothyroidism; Elevated glucose; Lipid screening; Encounter for screening mammogram for breast cancer; Obesity, morbid, BMI 50 or higher (HCC); Situational anxiety; Dietary counseling; Exercise counseling 06/10/2022 Travel 06/10/[address] [place] [address] Abdulkadir Montoya MD Medication Refill 05/11/[address] [place] [address] Abdiel Lucas MD Medication Refill 05/11/[address] [place] [address] Abdulkadir Montoya MD Medication Refill 05/06/[address] [place] [address] Aracely Montoya MD Medication Refill 05/03/[address] [address] [place] Hernandez, DO Medication Refill 05/03/[address] [address] [place] Hernandez, DO Medication Refill 05/03/2022 11:50 AM EST Office Visit [address] [place] [address] Nicolette Lomeli MD Acute bacterial sinusitis (Primary Dx); Acute bronchitis, unspecified organism 05/02/2022 Travel 04/29/[address] [place] [address] Abdulkadir Montoya MD Medication Refill 04/29/[address] [address] [place] Hernandez, DO Medication Refill 04/29/[address] [place] [address] Abdulkadir Montoya MD Medication Refill 04/29/[address] [phone] Beverly Hernandez, DO Medication Refill 04/27/2022 Refill [facility] [address] [place] [address] Beverly Hernandez, DO Medication Refill 04/11/2022 Refill [facility] [address] [place] [address] Beverly Hernandez, DO Medication Refill 04/11/2022 Refill [place] [address] [place] [address] Arminda Wilson [employer] Medication Refill 04/06/[address] [phone] Beverly Hernandez, DO Medication Refill 03/17/2022 Refill [place] [address] [place] [address] Abdiel Lucas MD Medication Refill 03/16/2022 Refill [place] [address] [place] [address] Abdulkadir Montoya MD Medication Refill 03/04/2022 Refill [place] [address] [place] [address] Abdulkadir Montoya MD Medication Refill 03/03/2022 Refill [place] [address] [place] [address] Nicolette Lomeli MD Medication Refill 02/16/2022 Refill [place] [address] [place] [address] Aracely Montoya MD Medication Refill 02/04/2022 Refill [facility] [address] [place] [address] Beverly Hernandez, DO Medication Refill 01/05/2022 Refill [facility] [address] [place] [address] Nicolette Lomeli MD Medication Refill 01/05/[address] [place] [address] Arminda Wilson, [employer] Medication Refill 12/21/[address] [place] [address] Abdulkadir Montoya MD Medication Refill 12/12/[address] [place] [address] Abdiel Lucas MD Medication Refill 11/30/[address] [address] [place] Hernandez, DO Medication Refill 11/23/2021 Patient Outreach [place] [address] [place] [id number] Jazmin Gustafson ED Follow-Up Call 11/23/2021 Travel 11/23/2021 4:12 AM EDT - 11/23/2021 5:16 AM EDT Emergency [facility] Emergency [address] [facility] [place] [address] Jj Orourke MD Exacerbation of asthma, unspecified asthma severity, unspecified whether persistent (Primary Dx) Discharge Disposition: Home or Self Care 10/28/[address] [place] [address] Aracely Montoya MD Medication Refill 09/30/[address] [address] Beverly Hernandez, DO Medication Refill 09/30/[address] [place] [address] Arminda Wilson, [employer] Medication Refill 09/30/2021 Refill [facility] [address] [place], [place] [address] Nicolette Lomeli MD Medication Refill 09/08/2021 Refill [facility] [address] [place] [address] Abdulkadir Montoya MD Medication Refill 08/23/[address] [place] [address] Abdulkadir Montoya MD Medication Refill 08/04/2021 Refill [facility] [address] [place] [address] Aracely Montoya MD Medication Refill 07/16/2021 Travel 07/16/2021 1:20 PM EDT - 07/16/2021 11:59 PM EDT Hospital Encounter [facility] [address] [place], [place] [address] Well adult exam; Lipid screening Discharge Disposition: Home or Self Care 07/07/[address] [place] [address] Nicolette Lomeli MD Medication Refill 07/02/2021 1:00 PM EST Office Visit [address] [place] [address] Arminda Wilson APRN Well adult exam (Primary Dx); Peripheral edema; Stasis dermatitis of both legs; Cellulitis of leg, left; Lipid screening; Obesity, morbid, BMI 50 or higher (HCC); Chronic midline low back pain with left-sided sciatica; Medication management; Acquired hypothyroidism; Dietary counseling 07/01/2021 Travel 06/29/2021 Orders Only [facility] [address] [place] [address] Yesenia Lazo Acquired hypothyroidism 06/29/2021 Travel 06/29/2021 11:57 AM EST - 06/29/2021 11:59 PM EST Hospital Encounter [facility] [address] [place], [place] [address] Discharge Disposition: Home or Self Care 06/17/[address] [place] [address] Abdulkadir Montoya MD Medication Refill 06/05/[address] [place] [address] Arminda Wilson, EMELY Medication Refill 06/04/[address] [place] [address] Abdulkadir Montoya MD Medication Refill 05/19/[address] [place] [address] Aracely Montoya MD Medication Refill 05/03/[address] [place] [address] Abdiel Lucas MD Medication Refill 04/29/[address] [place] [address] Abdulkadir Montoya MD Medication Refill 04/15/[address] [place] [address] Nicolette Lomeli MD Medication Refill 04/06/2021 Travel 04/06/2021 10:50 AM EST Office Visit [address] [place] [address] Arminda Wilson, [employer] Exposure to COVID-19 virus (Primary Dx); Abscess 04/05/[address] [place] [address] Abdulkadir Montoya MD Appointment Needed (Acute-Needs COVID test (exposed last week; no symptoms) & mass under rt armpit x 2 wks) 04/02/[address] [place] [address] Arminda Wilson APRN Medication Refill 03/13/[address] [place] [address] Abdiel Lucas MD Medication Refill 03/13/[address] [place] [address] Abdulkadir Montoya MD Medication Refill 03/04/2021 Refill [facility] [address] [place] [address] Abdulkadir Montoya MD Medication Refill 03/04/2021 Refill [facility] [address] [place] [address] Beverly Hernandez, Medication Refill 02/17/[address] [place] [address] Abdulkadir Montoya MD Medication Refill 02/15/[address] [place] [address] Abdulkadir Montoya MD Medication Refill 02/15/2021 Patient Outreach [facility] [address] [place] [address] Jazmin Gustafson ED Follow-Up Call 02/13/[address] [place] [address] Aracely Montoya MD Medication Refill 02/12/2021 Travel 02/12/2021 12:53 PM EDT - 02/12/2021 4:36 PM EDT Emergency [facility] [address] [facility] [place] [address] Jj High MD Mild persistent asthma without complication (Primary Dx); Mild asthma with exacerbation, unspecified whether persistent Discharge Disposition: Home or Self Care 02/01/2021 2:30 PM EDT Clinical Support [address] [place], [place] [address] Abdulkadir Montoya MD Suspected COVID-19 virus infection (Primary Dx); Acute bronchitis, unspecified organism 01/30/2021 Refill [facility] [address] [place] [address] Beverly Hernandez, DO Medication Refill 01/15/2021 Refill [facility] [address] [place] [address] Nicolette Lomeli MD Medication Refill 01/11/2021 10:40 AM EDT Clinical Support [address] [place] [address] Abdulkadir Montoya MD Suspected COVID-19 virus infection (Primary Dx) 01/03/2021 Refill [facility] [address] [place] [address] Beverly Hernandez, DO Medication Refill 01/03/[address] [place] [address] Arminda Wilson APRN Medication Refill 12/26/[address] [place] [address] Abdulkadir Montoya MD Medication Refill 12/08/2020 Refill [facility] [address] [place] [address] Beverly Hernandez, DO Medication Refill 11/19/2020 Orders Only [address] [place], [place] [address] Aracely Montoya MD Acquired hypothyroidism (Primary Dx) 11/18/2020 Travel 11/18/2020 4:00 PM EDT Office Visit [address] [place] [address] Aracely Montoya MD Peripheral neuropathy, idiopathic (Primary Dx); Acquired hypothyroidism 11/17/2020 Travel 11/16/2020 Refill [facility] [address] [place] [address] Arminda Wilson APRN Medication Refill 11/14/2020 Refill [facility] [place] [address] [place] [address] Abdulkadir Montoya MD Medication Refill; Medication Refill 11/12/2020 Refill [facility] [address] [address] Beverly Hernandez, DO Medication Refill 11/02/2020 Travel 11/02/2020 3:40 PM EDT Office Visit [address] [address] Beverly Hernandez, DO Encounter for postoperative care (Primary Dx); Hormone replacement therapy (HRT) 10/27/2020 Refill [facility] [place] [address] [place] [address] Abdulkadir Montoya MD Medication Refill 10/19/2020 Refill [facility] [place] [address] [place] [address] Abdulkadir Montoya MD Medication Refill 10/16/[address] [phone] Beverly Hernandez, DO Medication Refill 10/05/2020 Travel 10/05/2020 2:10 PM EDT Office Visit [address] [address] Beverly Hernandez, DO Encounter for postoperative care (Primary Dx); Hot flashes 10/02/2020 Travel 09/24/2020 Travel 09/24/2020 Refill [facility] [address] [place] [address] Abdulkadir Montoya MD Medication Refill 09/24/2020 Refill [facility] [place] [address] [place] [address] Abdiel Lucas MD Medication Refill 09/24/2020 2:20 PM EDT Office Visit [facility] [address] [place] [address] Beverly Hernandez, Encounter for postoperative care (Primary Dx); Wound cellulitis 09/21/2020 Travel 09/16/2020 Refill [facility] [address] [place] [address] KatieArminda alvarado, [employer] Medication Refill 09/12/2020 Refill [facility] [address] [place] [address] [place], Arminda, [employer] Medication Refill 09/11/2020 Telephone [facility] [address] [place] [address] Angelic Martino, JEREL Patient Question 09/08/2020 Travel 09/08/2020 1:00 PM EDT Office Visit [address] [place] [address] Manuel Moran MD S/P laparoscopic hysterectomy (Primary Dx); Wound drainage 08/23/2020 Refill [facility] [place] [address] [place] [address] Abdulkadir Montoya MD Medication Refill 08/21/2020 Travel 08/21/2020 Refill [facility] [place] [address] [place] [address] Nicolette Lomeli MD Medication Refill 08/21/2020 11:40 AM EDT Office Visit [facility] [address] [place] [address] Beverly Hernandez DO Encounter for postoperative care (Primary Dx); Bladder spasms 08/11/2020 Travel 08/11/2020 8:00 AM EDT - 08/11/2020 10:30 AM EDT Surgery [facility] [address] [place] [address] Beverly Hernandez DO DAVINCI ROBOTIC TOTAL HYSTERECTOMY 08/11/2020 7:55 AM EDT Anesthesia Event [facility] [address] [place] [address] Maximino Lehman MD Merkle Serey, Jennifer L, NP 08/11/2020 6:00 AM EDT - 08/11/2020 1:51 PM EDT Hospital Encounter [facility] [address] [place] [facility] Beverly Hernandez, Abnormal uterine bleeding (AUB); History of endometrial ablation; Intramural leiomyoma of uterus; Abnormal uterine bleeding (AUB); History of endometrial ablation; Intramural leiomyoma of uterus Discharge Disposition: Home or Self Care 08/07/2020 1:57 PM EDT - 08/07/2020 11:59 PM EDT Hospital Encounter [facility] [address] [place] [address] Covid19, [facility] [place] Pre-op testing; Encounter for laboratory testing for COVID-19 virus Discharge Disposition: Home or Self Care 08/05/2020 10:35 AM EDT - 08/05/2020 11:59 PM EDT Hospital Encounter [facility] PRE-ADMIT TESTING [address] [place] [facility] Pat, Johanny Preop testing (Primary Dx) Discharge Disposition: Home or Self Care 08/04/2020 Travel 08/03/2020 Travel 07/30/2020 Refill [facility] [address] [place] [phone] Arminda Wilson APRN Medication Refill 07/27/2020 Telephone [facility] [place] [address] [facility] [place], [place] [address] Beverly Hernandez DO Surgery (SURGERY INFORMATION (HYSTERECTOMY)) 07/23/2020 Travel 07/23/2020 2:20 PM EDT Office Visit [address] [place] [address] Beverly Hernandez DO Abnormal uterine bleeding (AUB) (Primary Dx); History of endometrial ablation; Intramural leiomyoma of uterus; Vaginal discharge 07/20/2020 Travel 07/20/2020 Refill SEP [facility] [address] [place] [address] [place], Arminda, [employer] Medication Refill 06/26/2020 Patient Outreach [place] [address] [place] [address] Jeromy Winslow LPN ED Follow-Up Call 06/25/2020 Travel 06/25/2020 4:53 PM EST - 06/25/2020 7:19 PM EST Emergency [facility] [place] [address] Parveen Syed MD Schott, Jon J, MD Lower abdominal pain (Primary Dx) Discharge Disposition: Home or Self Care 06/22/2020 Refill SEP [facility] [address] [place] [address] [place], Arminda, [employer] Medication Refill 06/16/2020 Travel 06/16/2020 1:20 PM EST Office Visit [address] [place] [address] Manuel Moran MD Abnormal uterine bleeding (AUB) (Primary Dx); Intramural leiomyoma of uterus; History of endometrial ablation; Dyspareunia in female; Pelvic pain 06/15/2020 Refill [facility] [address] [place] [address] Abdulkadir Montoya MD Medication Refill 06/10/2020 1:53 PM EST - 06/10/2020 11:59 PM EST Hospital Encounter [facility] [address] [place] [address] Abnormal uterine bleeding (AUB) Discharge Disposition: Home or Self Care 06/10/2020 Travel 06/09/2020 Travel 06/09/2020 10:40 AM EST Office Visit [facility] [address] [place] [phone] Manuel Moran MD Abnormal uterine bleeding (AUB) (Primary Dx); Pelvic pain; Dyspareunia in female; Intramural leiomyoma of uterus; Obesity, morbid, BMI 50 or higher (HCC); History of endometrial ablation; History of right salpingo-oophorectomy 06/05/2020 Travel 05/23/2020 Refill [place] [address] [place] [address] Nicolette Lomeli MD Medication Refill 05/20/2020 Refill [place] [place] [address] [place] [address] Arminda Wilson APRN Medication Refill 05/19/2020 Travel 05/19/2020 10:00 AM EST Office Visit [place] [facility] [address] [place] [address] Abdulkadir Montoya MD Leg abscess (Primary Dx) 05/18/2020 11:00 AM EST Office Visit [place] [facility] [address] [place] [address] Abdulkadir Montoya MD Abscess of left leg (Primary Dx) 05/15/2020 Travel 05/15/2020 2:26 PM EST - 05/15/2020 11:59 PM EST Hospital Encounter [facility] Ultrasound [address] [place] [address] Arminda Wilson APRN Post-menopause bleeding Discharge Disposition: Home or Self Care 05/14/2020 Travel 05/07/2020 4:20 PM EST Office Visit [facility] [place] [facility] [address] [place] [address] Aracely Montoya MD Moderate asthma with acute exacerbation, unspecified whether persistent (Primary Dx); Cough 05/07/2020 Travel 05/07/[address] [place] [address] Abdulkadir Montoya MD Medication Management (pt is taking Flagyl); Other 05/04/2020 Orders Only [address] [place] [address] Arminda Wilson, [employer] Bacterial vaginitis (Primary Dx) 05/01/[address] [place] [address] Arminda Wilson APRN Results 05/01/2020 Orders Only [address] [place] [address] [facility] 04/30/2020 9:30 AM EST Office Visit [address] [place] [address] Arminda Wilson, [employer] Well adult exam (Primary Dx); Peripheral neuropathy, idiopathic; Medication management; Post-menopause bleeding; Obesity, morbid, BMI 50 or higher (HCC); Cervical cancer screening; Acquired hypothyroidism; Chronic midline low back pain with left-sided sciatica; Elevated glucose 04/30/2020 Travel 04/29/[address] [place] [address] Abdulkadir Montoya MD Medication Refill 04/27/[address] [place] [address] Abdulkadir Montoya MD Medication Refill 04/26/[address] [place] [address] Arminda Wilson APRN Medication Refill 03/31/[address] [place] [address] Abdulkadir Montoya MD Medication Refill 03/31/2020 Refill SEP [address] [place] [address] Katie, Arminda, [employer] Medication Refill 03/31/[address] [place] [address] Abdiel Lucas MD Medication Refill 03/24/[address] [place] Abdulkadir Montoya MD Medication Refill 03/18/2020 10:40 AM EST Office Visit [address] [place] [address] Katie, Arminda, [employer] Acute bronchitis, unspecified organism (Primary Dx) 03/18/[address] [place] [address] Abdulkadir Montoya MD Appointment Needed (acute) 03/18/2020 Travel 03/02/[address] [place] [address] [place], Arminda, [employer] Medication Refill 02/01/[address] [place] [address] Katie, Arminda, [employer] Medication Refill 01/24/[address] [place] [address] Abdulkadir Montoya MD Medication Refill 01/06/[address] [place] [address] Abdulkadir Montoya MD Medication Refill 01/03/[address] [place] [address] Abdulkadir Montoya MD Medication Refill 12/31/[address] [place] [address] [place], Arminda, [employer] Medication Refill 12/23/2019 Travel 11/30/2019 Refill SEP [address] [place], [place] [address] [place], Arminda, [employer] Medication Refill 11/13/2019 Refill SEP [address] [place], [place] [address] Abdulkadir Montoya MD Medication Refill 11/07/2019 Refill SEP [address] [place], [place] [address] Abdulkadir Montoya MD Medication Refill 11/07/2019 Refill SEP [address] [place], [place] [address] Katie, Arminda, [employer] Medication Refill 10/28/2019 Refill SEP [address] [place], [place] [address] [place], Arminda, [employer] Medication Refill 10/17/2019 Refill SEP [address] [place], [place] [address] Katie, Arminda, SU[employer] Medication Refill 10/16/2019 Refill SEP [address] [place], [place] [address] Abdulkadir Montoya MD Medication Refill 10/04/[address] [place], [place] [address] Abdulkadir Montoya MD Medication Refill 10/02/2019 Refill SEP [address] [place], [place] [address] Abdiel Lucas MD Medication Refill 09/26/[address] [place], [place] [address] [place], Arminda, [employer] Medication Refill 09/19/2019 Refill SEP [address] [place], [place] [address] Abdulkadir Montoya MD Medication Refill 09/12/2019 Travel 09/12/2019 1:40 PM EDT Office Visit [address] [place] [address] Aracely Montoya MD Abscess of arm, right (Primary Dx) 09/12/[address] [place] [address] Abdulkadir Montoya MD Schedule Appointment (needs appt) 09/09/2019 Patient Outreach [address] [place] [address] Deb Sun ED Follow-Up Call; ED Follow-Up Call 09/09/[address] [place] [address] Abdulkadir Montoya MD Appointment Needed (acute) 09/08/2019 Travel 09/08/2019 3:21 PM EDT - 09/08/2019 5:31 PM EDT Emergency [facility] [place] [address] Thor Conway MD Abscess (Primary Dx) Discharge Disposition: Home or Self Care 09/07/[address] [place] [address] Arminda Wilson, [employer] Medication Refill 09/06/2019 Travel 09/06/2019 2:20 PM EDT Office Visit [address] [place] [address] Abdulkadir Montoya MD Lymphadenitis (Primary Dx) 08/23/2019 3:40 PM EDT Office Visit [address] [place] [address] Arminda Wilson, [employer] Chronic midline low back pain with left-sided sciatica (Primary Dx) 08/23/2019 Travel 08/23/[address] [place] [address] Abdulkadir Montoya MD Symptom Call (pain in her lower back down legs to her feet, muscle spasms) 07/07/[address] [place] [address] Abdulkadir Montoya MD Medication Refill 07/07/[address] [place] [address] Katie, Arminda, [employer] Medication Refill 06/30/[address] [place] [address] [place], Arminda, [employer] Medication Refill 06/28/2019 1:20 PM EST Clinical Support [address] [place] [address] Kristin Acevedo E Acquired hypothyroidism 06/28/2019 Travel 06/12/2019 4:40 PM EST Office Visit [address] [place] [address] Katie, Arminda, [employer] Viral URI (Primary Dx); Body aches; Chronic midline low back pain with left-sided sciatica 06/12/2019 Travel 05/27/[address] [place] [address] Abdulkadir Montoya MD Medication Refill (Hot flashes) 05/16/2019 10:00 AM EST Office Visit [address] [place] [address] [place], Arminda, [employer] Yeast dermatitis (Primary Dx) 05/02/[address] [place] [address] Abdulkadir Montoya MD Medication Refill 04/23/2019 10:20 AM EST Office Visit [address] [place] [address] Abdulkadir Montoya MD Acute bronchitis, unspecified organism (Primary Dx); Acute pain of left knee; Peripheral neuropathy, idiopathic 04/23/[address] [place] [address] Abdulkadir Montoya MD Appointment Needed (Pain in Right lung when breathing, coughing, chills and SOB since /no bal) 04/06/[address] [place] [address] Abdulkadir Montoya MD Medication Refill 04/05/[address] [place] [address] Abdiel Lucas MD Medication Refill 04/04/[address] [place] [address] [place], Arminda, [employer] Medication Refill 04/02/[address] [place] [address] Katie, Arminda, [employer] Medication Refill 03/23/[address] [place], [place] [address] Abdulkadir Montoya MD Medication Refill 03/18/2019 12:06 PM EST - 03/18/2019 11:59 PM [facility] Hospital Encounter [facility] [address], [place] [address] Right arm pain Discharge Disposition: Home or Self Care 03/18/2019 9:00 AM EST Office Visit [address] [place] [address] Katie, Arminda, [employer] Fall, initial encounter (Primary Dx); Right arm pain 03/12/[address] [place] [address] Abdulkadir Montoya MD Medication Refill 02/02/[address] [place] [address] Abdulkadir Montoya MD Medication Refill 01/17/2019 Orders Only [address] [place] [address] Arminda Wilson, EMELY Acquired hypothyroidism (Primary Dx) 01/14/2019 10:20 AM EDT Clinical Support [facility] [address] [place] [address] Kristin Acevedo Annual physical exam; Lipid screening; Acquired hypothyroidism 01/10/2019 3:20 PM EDT Office Visit [facility] [address] [place] [address] Arminda Wilson APRN Annual physical exam (Primary Dx); Acquired hypothyroidism; Chronic midline low back pain with left-sided sciatica; Obesity, morbid, BMI 50 or higher (HCC); Dietary counseling; Exercise counseling; Situational anxiety; Encounter for screening mammogram for breast cancer; Lipid screening 12/21/[address] [place] [address] Abdulkadir Montoya MD Medication Refill 11/11/2018 Refill [facility] [address] [place] [address] Abdulkadir Montoya MD Medication Refill 11/02/2018 Travel 11/02/2018 7:30 AM EDT - 11/02/2018 8:15 AM EDT Surgery [facility] [place] [address] Parveen Marsh MD ANKLE/ HEEL/CALCANEUS DEBRIDEMENT INCISION AND DRAINAGE 11/02/2018 7:25 AM EDT Anesthesia Event [facility] [place] [address] Jj Tanner MD Braxton-Brown, Jennifer, APRN 11/02/2018 5:05 AM EDT - 11/02/2018 10:15 AM EDT Hospital Encounter [facility] SAME DAY SURGERY [facility] [place] [address] Parveen Marsh MD Deep postoperative wound infection (Primary Dx); Preop testing Discharge Disposition: Home or Self Care 11/01/2018 Travel 10/29/2018 Refill [facility] Sujata [address] [place] [address] Abdiel Lucas MD Medication Refill 10/15/[address] [place] [address] Abdulkadir Montoya MD Medication Refill 10/14/[address] [place] [address] Abdiel Lucas MD Medication Refill 10/09/2018 Patient Outreach [facility] [address] [place] [address] Daya Mcintosh LPN ED Follow-Up Call 10/06/2018 12:38 PM EDT - 10/06/2018 11:59 PM EDT Hospital Encounter [facility] [address] [place] [address] Speedy Pedroza MD Left leg pain Discharge Disposition: Home or Self Care 10/05/2018 9:20 PM EDT - 10/06/2018 12:42 AM EDT Emergency [facility] Emergency [address] [facility] [place] [address] Speedy Pedroza MD Left leg pain (Primary Dx) Discharge Disposition: Home or Self Care 10/03/2018 9:40 AM EDT Office Visit [address] [place] [address] Arminda Wilson APRN Moderate persistent asthma with (acute) exacerbation (Primary Dx) 09/28/2018 Travel 09/28/2018 10:30 AM EDT - 09/28/2018 12:00 PM EDT Surgery [facility] [place] [address] Parveen Marsh MD ACHILLES TENDON RECONSTRUCTION WITH FLEXOR HALLUCIS LONGUS TENDON TRANSFER AND EXCISION HAGLUNDS DEFORMITY CALCANEUS 09/28/2018 10:38 AM EDT Anesthesia Event [facility] [place] [address] Leonides You MD Braxton-Brown, Jennifer, APRN 09/28/2018 8:07 AM EDT - 09/28/2018 2:33 PM EDT Hospital Encounter [facility] SAME DAY SURGERY [facility] [address] [place], [place] [address] Praveen Marsh MD Discharge Disposition: Home or Self Care 09/22/2018 Refill SEP [address] [place] [address] Abdulkadir Montoya MD Medication Refill 09/10/2018 Refill SEP [address] [place] [address] Abdulkadir Montoya MD Medication Refill 08/21/2018 Refill SEP [address] [place] [address] Abdulkadir Montoya MD Medication Refill 08/15/2018 Refill SEP [address] [place] [address] Abdulkadir Montoya MD Medication Refill 08/14/[address] [place] [address] Abdulkadir Montoya MD Heel Pain 07/23/2018 1:20 PM EDT Office Visit [address] [place] [address] Grace Arroyo APRN Acute bacterial sinusitis (Primary Dx) 07/23/[address] [place] [address] Abdulkadir Montoya MD Cough 07/13/2018 4:40 PM EDT Office Visit [address] [place] [address] Abdulkadir Montoya MD Moderate asthma with acute exacerbation, unspecified whether persistent (Primary Dx); Muscle spasm of left lower extremity; Obesity, morbid, BMI 50 or higher ([facility]) 07/10/2018 Refill SEP [address] [place] [address] Abdiel Lucas MD Medication Refill 07/03/2018 4:40 PM EDT Office Visit [address] [place] [address] Arminda Wilson APRN Cutaneous abscess of other site (Primary Dx); Chronic midline low back pain with left-sided sciatica 05/29/2018 Orders Only [address] [place] [address] Ellen Zelaya CCMA Rash and nonspecific skin eruption 05/29/2018 11:30 AM EST Office Visit [address] [place] [address] Abdulkadir Montoya MD Rash and nonspecific skin eruption (Primary Dx) 05/26/[address] [place] [address] Abdulkadir Montoya MD Medication Refill 05/17/2018 Orders Only [address] [place] [address] Abdulkadir Montoya MD Hot flashes (Primary Dx) 04/30/2018 Patient Outreach [address] [place] [address] Tania aMlagon, material handling technician; Care Management - Chart Review; ED Follow-Up Call 04/30/2018 11:20 AM EST Office Visit [address] [place] [address] Abdulkadir Montoya MD Moderate asthma with acute exacerbation, unspecified whether persistent (Primary Dx); Acquired hypothyroidism; Menopausal symptoms; Restless legs syndrome (RLS) 04/29/[address] [place] [address] Abdulkadir Montoya MD Medication Refill 04/27/2018 9:22 PM EST - 04/27/2018 10:31 PM EST Emergency . [place] [address] [facility] [place] [address] Skyler Fontenot MD Mild intermittent asthma with exacerbation (Primary Dx) Discharge Disposition: Home or Self Care 04/22/[address] [place] [address] Abdiel Lucas MD Medication Refill 04/13/[address] [place] [address] Abdulkadir Montoya MD Other 04/13/2018 Refill SEP [address] [place] [address] Abdiel Lucas MD Medication Refill 03/21/2018 5:00 PM EST Office Visit [address] [place] [address] Abdiel Lucas MD Acute bronchitis, unspecified organism (Primary Dx) 03/21/[address] [place] [address] Abdulkadir Montoya MD Asthma 03/09/[address] [place] [address] Abdulkadir Montoya MD Medication Refill 03/05/2018 Patient Outreach [address] [place] [address] Tania Malagon RN Care Transition; Care Management - Chart Review; ED Follow-Up Call 03/04/2018 11:02 AM EST - 03/04/2018 12:32 PM EST Emergency [facility] Emergency [address] [place] [address] Scottie Sullivan MD Moderate asthma with exacerbation, unspecified whether persistent (Primary Dx) Discharge Disposition: Home or Self Care 02/28/2018 8:40 AM EST Office Visit [address] [place] [address] Nicolette Lomeli MD Pain in right arm (Primary Dx); Need for influenza vaccination; Need for pneumococcal vaccination 02/13/[address] [place] [address] Abdulkadir Montoya MD Medication Refill 02/08/2018 11:50 AM EDT Office Visit [address] [place] [address] Abdulkadir Montoya MD Acute bronchospasm (Primary Dx); Peripheral neuropathy, idiopathic 01/29/2018 11:50 AM EDT Office Visit [address] [place] [address] Abdulkadir Montoya MD Cutaneous abscess of face (Primary Dx) 01/29/[address] [place] [address] Abdulkadir Montoya MD Appointment Needed (Acute, painful bump behind ear) 12/29/2017 11:40 AM EDT Office Visit [address] [place] [address] Abdulkadir Montoya MD Pneumonia of right lower lobe due to infectious organism (HCC) (Primary Dx); Bilateral lower extremity pain 12/06/[address] [place] [address] Abdiel Lucas MD Medication Refill 11/17/[address] [place] [address] Abdulkadir Montoya MD Medication Refill 10/24/[address] [place] [address] Abdiel Lucas MD Medication Refill 09/08/2017 2:20 PM EDT Office Visit [address] [place] [address] Abdulkadir Montoya MD Bilateral lower extremity pain 09/01/[address] [place] [address] Abdukladir Montoya MD Medication Refill 08/25/[address] [place] [address] Abdulkadir Montoya MD Medication Refill 08/13/2017 Refill SE[facility] [address] [place] [address] Abdulkadir Montoya MD Medication Refill 07/16/2017 Refill SEP [address] [place] [address] Abdulkadir Montoya MD Medication Refill 07/13/2017 Refill SEP [address] [place] [address] Abdulkadir Montoya MD Medication Refill 07/03/2017 Patient Outreach [address] [place] [address] Tania Malagon RN Care Transition; Care Management - Chart Review; ED Follow-Up Call; Hospital Follow Up 07/03/2017 Patient Outreach [place] [address] [place] [address] Beverly Correa, JEREL Care Management - Chart Review (Hospital d/c review) 06/29/2017 8:53 PM EST - 06/30/2017 6:01 PM EST Emergency [facility] Emergency [address] [place] [address] Abdiel Uribe MD Shanehsaz, Piam, MD Chest pain, unspecified type (Primary Dx) Discharge Disposition: Home or Self Care 06/19/2017 Refill SEP [address] [place] [address] Abdulkadir Montoya MD Medication Refill 06/03/2017 Refill SEP [address] [place] [address] Abdiel Lucas MD Medication Refill 05/18/2017 Refill SEP [address] [place] [address] Abdulkadir Montoya MD Medication Refill 05/05/2017 Refill SEP [address] [place] [address] Abdiel Lucas MD Medication Refill 05/02/2017 3:30 PM EST Office Visit [address] [place] [address] Arminda Wilson APRN Exposure to the flu (Primary Dx); Moderate persistent asthma with exacerbation 04/10/2017 12:16 PM EST - 04/10/2017 11:59 PM EST Hospital Encounter [facility] [address] [place] [address] Emg, Erasto Edg Pain in both lower extremities (Primary Dx); Bilateral lower extremity pain; Bilateral leg numbness Discharge Disposition: Home or Self Care 03/28/2017 12:00 PM EST Office Visit [address] [place] [address] Abdulkadir Montoya MD Bilateral lower extremity pain (Primary Dx); Lumbar radiculopathy 03/28/[address] [place] [address] Abdulkadir Montoya MD Other (appt) 03/25/[address] [place] [address] Abudlkadir Montoya MD Medication Refill 01/31/2017 10:20 AM EDT Office Visit [address] [place] [address] Abdulkadir Montoya MD Moderate asthma with acute exacerbation, unspecified whether persistent (Primary Dx); Peripheral neuropathy, idiopathic 01/27/2017 Patient Outreach [address] [place] [address] Lexi Hernandez LPN Care Transition; Care Management - Chart Review; ED Follow-Up Call 01/26/2017 7:31 PM EDT - 01/26/2017 8:53 PM EDT Emergency [place] [address] [place] [address] Abel Velasquez MD Moderate asthma with acute exacerbation, unspecified whether persistent (Primary Dx) Discharge Disposition: Home or Self Care 01/16/[address] [place] [address] Abdulkadir Montoya MD Medication Refill 10/17/2016 Patient Outreach [address] [place] [address] Lexi Hernandez LPN Care Transition; Care Management - Chart Review; ED Follow-Up Call 10/15/2016 9:08 PM EDT - 10/15/2016 9:53 PM EDT Emergency [facility] [address] [place], [place] [phone] Parveen Syed MD Asthma exacerbation (Primary Dx) Discharge Disposition: Home or Self Care 10/06/[address] [place] [address] Abdiel Lucas MD Medication Refill 09/20/[address] [place] [address] Abdiel Lucas MD Medication Refill 09/20/[address] [place] [address] Abdulkadir Montoya MD Medication Refill 09/19/[address] [place] [address] Abdiel Lucas MD Medication Refill 07/18/2016 4:20 PM EDT Office Visit [address] [place] [phone] Abdulkadir Montoya MD Asthma exacerbation (Primary Dx) 07/04/2016 3:40 PM EDT Office Visit [address] [place] [address] Abdulkadir Montoya MD Acute bacterial sinusitis (Primary Dx) 06/06/2016 8:40 PM EST - 06/06/2016 11:59 PM EST Hospital Encounter EDG LAB VEL PROCESSING [facility] [address] [place] [address] Peripheral neuropathy, idiopathic; Acquired hypothyroidism Discharge Disposition: Home or Self Care 06/06/2016 3:20 PM EST Office Visit [address] [place] [address] Abdulkadir Montoya MD Acquired hypothyroidism (Primary Dx); Peripheral neuropathy, idiopathic; Necrobiosis lipoidica, not elsewhere classified 04/05/2016 10:20 AM EST Office Visit [address] [place] [address] Abdulkadir Montoya MD Wound infection after surgery, initial encounter (Primary Dx) 04/04/2016 Patient Outreach [address] [place] [address] [facility] 03/27/2016 4:06 PM EST - 04/01/2016 2:28 PM EST Hospital Encounter EDG 2B1 NEUROSCIENCE [facility] [place] [address] Ramesh Garcia MD Discharge Disposition: Home or Self Care 03/29/2016 5:30 PM EST - 03/29/2016 6:48 PM EST Surgery EDG [facility] [address] [place] [address] Ramesh Garcia MD LUMBAR MASS EXCISION/WOUND INCISION & DRAINAGE 03/29/2016 5:47 PM EST Anesthesia Event [place] [facility] [address] Trinidad Jonas MD Collins, Angela, SUPERVISOR SUNGLASSES 03/27/2016 8:51 AM EST - 03/27/2016 3:48 PM EST Emergency [facility] Emergency [address] [place] [address] Samantha Lopez MD Bailey, Steven C, MD Postoperative abscess, initial encounter (Primary Dx) Discharge Disposition: Home or Self Care 03/24/[address] [place] [address] Abdulkadir Montoya MD Medication Refill 03/11/2016 6:15 AM EST - 03/12/2016 9:43 AM EST Hospital Encounter EDG 2B1 NEUROSCIENCE [facility] [place] [address] Ramesh Garcia MD Discharge Disposition: Home or Self Care 03/11/2016 9:30 AM EST - 03/11/2016 11:30 AM EST Surgery [place] [facility] [place] [address] Ramesh Garcia MD LUMBAR LAMINECTOMY/DISCECTOM Y (COVERS FACETECTOMY) 03/11/2016 10:16 AM EST Anesthesia Event [place] [facility] [address] Jack Garvey MD Merkle Serey, Jennifer L, NP 03/07/2016 1:09 PM EST - 03/07/2016 11:59 PM EST Hospital Encounter EDG PRE-ADMIT TESTING [facility] [place] [address] Discharge Disposition: Home or Self Care 03/01/2016 1:43 PM EST - 03/01/2016 11:59 PM EST Hospital Encounter [facility] MRI [address] [place] [address] Ramesh Garcia MD Displacement of lumbar intervertebral disc without myelopathy; Cervicalgia Discharge Disposition: Home or Self Care 02/01/2016 Refill SEP [address] [place] [address] Abdiel Lucas MD Medication Refill 01/26/2016 Refill SEP [address] [place] [address] Abdiel Lucas MD Medication Refill 01/19/2016 Refill SEP [address] [place] [address] Abdulkadir Montoya MD Medication Refill 01/07/2016 Refill SEP [address] [place] [address] Abdiel Lucas MD Medication Refill 01/06/[address] [place] [address] Abdiel Lucas MD Medication Refill 01/05/[address] [place] [address] Antonella Winston PA-C Visit Follow Up 12/30/2015 4:12 PM EDT - 12/30/2015 11:59 PM EDT Hospital Encounter EDG LAB VEL PROCESSING [facility] [address] [place], [place] [address] Cellulitis and abscess of trunk Discharge Disposition: Home or Self Care 12/29/2015 3:00 PM EDT Office Visit [address] [place] [address] Antonella Winston PA-C Cellulitis and abscess of trunk (Primary Dx); Rash; Family history of diabetes mellitus; Polydipsia 12/18/[address] [place] [address] Abdulkadir Montoya MD Medication Refill 12/08/[address] [place] [address] Abdulkadir Montoya MD Back Pain 11/30/[address] [place] [address] Abdulkadir Montoya MD Visit Follow Up 11/27/2015 7:52 AM EDT - 11/27/2015 11:59 PM EDT Hospital Encounter [facility] MRI [address], [place] [address] Antonella Winston PA-C Numbness and tingling; Bilateral low back pain with sciatica, sciatica laterality unspecified Discharge Disposition: Home or Self Care 11/20/2015 8:20 AM EDT Office Visit [address] [place] [address] Antonella Winston PA-C Numbness and tingling (Primary Dx); Bilateral low back pain with sciatica, sciatica laterality unspecified 11/10/2015 10:35 AM EDT - 11/10/2015 11:59 PM EDT Hospital Encounter [facility] EMG [address] [place] [address] Emg, Erasto Edg Pain of left lower extremity (Primary Dx); Fall, subsequent encounter; Numbness in left leg Discharge Disposition: Home or Self Care 11/03/2015 Telephone [place] [address] [place] [address] Abdulkadir Montoya MD Other (back pain) 10/29/2015 3:12 PM EDT - 10/29/2015 11:59 PM EDT Hospital Encounter GRT XRAY [address] [place] [address] Fall, subsequent encounter; Left hip pain; Left-sided low back pain with left-sided sciatica Discharge Disposition: Home or Self Care 10/29/2015 11:40 AM EDT Office Visit [facility] Sujata [address] [place] [address] Antonella Winston PA-C Fall, subsequent encounter (Primary Dx); Numbness in left leg; Left-sided low back pain with left-sided sciatica; Left hip pain 10/20/2015 10:10 AM EDT Office Visit FITZ [address] [place] [address] Abdulkadir Montoya MD Acute low back pain (Primary Dx) 10/15/2015 3:40 PM EDT Office Visit FITZ [place] [address] [place] [address] Abdulkadir Montoya MD Sacroiliac joint dysfunction of left side (Primary Dx) 10/09/2015 2:59 PM EDT - 10/09/2015 11:59 PM EDT Hospital Encounter FTT XRAY [address] [place] [place] [address] Arthralgia of right hip Discharge Disposition: Home or Self Care 10/08/[address] [place] [address] Abdulkadir Montoya MD Orders 10/07/2015 4:00 PM EDT Office Visit [address] [place] [address] Grace Arroyo APRN Right hip pain (Primary Dx) 09/23/2015 9:00 AM EDT Office Visit [address] [place] [address] Antonella Winston PA-C Abscess of skin of abdomen (Primary Dx); Itching 08/21/2015 11:00 AM EDT Office Visit [address] [place] [address] Manuel Moran MD S/P laparoscopy (Primary Dx); Dysuria; S/P endometrial ablation; Endometritis 08/18/[address] [place] [address] Manuel Moran MD Other 08/13/2015 2:30 PM EDT Office Visit [address] [place] [address] Manuel Moran MD S/P laparoscopy (Primary Dx); S/P endometrial ablation; S/P unilateral salpingo-oophorectomy 07/30/2015 Patient Outreach [address] [place] [address] Angelic Keith [facility] Follow Up 07/29/2015 1:47 PM EDT Anesthesia Event [facility] [address] [place] [address] Huy Mina MD Nacu, Bernard, SINA 07/29/2015 11:45 AM EDT - 07/29/2015 2:17 PM EDT Surgery [facility] [address] [place] [address] Manuel Moran MD DAVINCI ROBOTIC LAPAROSCOPY 07/27/2015 8:08 PM EDT - 07/29/2015 10:12 PM EDT Hospital Encounter Johanny [address] [facility] [place] [address] Manuel Moran MD Discharge Disposition: Home or Self Care 07/27/2015 3:06 PM EDT - 07/27/2015 7:37 PM EDT Emergency [facility] [address] [place] [address] Parveen Rodriguez MD Pelvic pain in female (Primary Dx); Cyst of right ovary Discharge Disposition: Short Term Hospital 07/23/2015 3:40 PM EDT - 07/23/2015 11:59 PM EDT Hospital Encounter EDG LAB VEL PROCESSING [facility] [address] [place] [id number] Urinary tract infection with hematuria, site unspecified Discharge Disposition: Home or Self Care 07/23/2015 4:20 PM EDT Office Visit [facility] Sujata [address] [place] [address] Antonella Winston PA-C Lower abdominal pain (Primary Dx); Abnormal menstrual cycle; Vaginal vault prolapse; Urinary tract infection with hematuria, site unspecified 05/09/2015 Refill SEP [address] [place] [address] Abdiel Lucas MD Medication Refill 04/13/2015 10:50 AM EST Office Visit [facility] Sujata [address] [place] [address] Abdulkadir Montoya MD Abscess (Primary Dx) 03/25/2015 Patient Outreach [address] [place] [address] Destinee Yang, BLANKER PRESS OPERATOR Follow-Up Call 03/23/2015 8:21 PM EST - 03/23/2015 10:02 PM EST Emergency [facility] [address] [place] [address] Jack Wilder DO Asthma exacerbation (Primary Dx) Discharge Disposition: Home or Self Care 02/06/2015 Telephone SEP Sujata [address] [place] [address] Abdulkadir Montoya MD Other 02/05/2015 7:51 PM EDT - 02/05/2015 11:59 PM EDT Hospital Encounter EDG LAB VEL PROCESSING [facility] [place] [address] Breast pain, right; Dysmenorrhea Discharge Disposition: Home or Self Care 02/05/2015 3:20 PM EDT Office Visit [address] [place] [address] Abdulkadir Montoya MD Moderate persistent asthma without complication (Primary Dx); Breast pain, right; Dysmenorrhea 02/04/2015 Patient Outreach [address] [place] [address] Destinee Yang, BLANKER PRESS OPERATOR Follow-Up Call 02/03/2015 3:17 PM EDT - 02/03/2015 4:22 PM EDT Emergency [facility] [address] [facility] [place] [address] Parveen Syed MD Mild intermittent asthma without complication (Primary Dx) Discharge Disposition: Home or Self Care 01/20/2015 7:58 PM EDT - 01/20/2015 11:59 PM EDT Hospital Encounter EDG LAB VEL PROCESSING [facility] [place] [id number] Acquired hypothyroidism Discharge Disposition: Home or Self Care 01/20/2015 2:40 PM EDT Clinical Support [facility] Sujata [address] [place] [address] Rula Birch CCMA Acquired hypothyroidism (Primary Dx) 01/01/[address] [place] [address] Abdulkadir Montoya MD Cough 12/23/2014 10:10 AM EDT Office Visit [address] [place] [address] Abdulkadir Montoya MD Moderate persistent asthma without complication (Primary Dx); Acute bronchitis, unspecified organism 10/27/[address] [place] [address] Abdulkadir Montoya MD Results (HEMOCCULT CARDS X 3 ALL NEG) 10/27/2014 3:20 PM EDT Clinical Support [address] [place] [address] Kristin Acevedo Screening for malignant neoplasm of the rectum (Primary Dx) 10/22/[address] [place] [address] Abdulkadir Montoya MD Visit Follow Up 10/22/2014 Orders Only [address] [place] [address] Abdiel Lucas MD Iron deficiency anemia (Primary Dx) 10/20/2014 7:03 PM EDT - 10/20/2014 11:59 PM EDT Hospital Encounter EDG LAB VEL PROCESSING [facility] [place] [address] Anemia, unspecified anemia type Discharge Disposition: Home or Self Care 10/20/2014 Patient Outreach [facility] Ericka [address] [place] [address] Jeannie Wills LPN ED Follow-Up Call 10/20/2014 Patient Outreach SEP [facility] [address] [place] [address] Tania Garcia, JEREL Care Management - Chart Review (hospital discharge reviewed) 10/20/2014 2:00 PM EDT Office Visit [facility] [address] [place] [address] Abdiel Lucas MD Hospital discharge follow-up (Primary Dx); Health care maintenance; Anemia, unspecified anemia type; Hypothyroidism, unspecified hypothyroidism type; Other chest pain; Gastroesophageal reflux disease without esophagitis 10/17/2014 12:28 AM EDT - 10/17/2014 6:02 PM EDT Hospital Encounter EDG TCU [address]A [facility] [place] [address] Javad Hernandez DO Discharge Disposition: Home or Self Care 10/16/2014 6:15 PM EDT - 10/16/2014 11:53 PM EDT Emergency [facility] [address] [place] [address] Ce Philippe DO Smith, Kenneth L, MD Acute chest pain (Primary Dx) Discharge Disposition: Short Term Hospital 10/16/2014 5:20 PM EDT Office Visit [facility] [place] [address] [place] [address] Abdulkadir Montoya MD Acute chest pain (Primary Dx) 09/29/2014 Refill [place] [address] [place] [address] Abdulkadir Montoya MD Medication Refill 08/14/[address] [place] [address] Abdulkadir Montoya MD Medication Refill 07/28/2014 1:45 PM EDT Office Visit [facility] [address] [place] [address] Jayda Hamilton MD Thoracic or lumbosacral neuritis or radiculitis, unspecified (Primary Dx) 07/04/2014 3:00 PM EDT Office Visit [address] [place] [address] Abdulkadir Montoya MD Hypothyroidism (Primary Dx); GERD (gastroesophageal reflux disease) 06/30/2014 8:54 AM EDT - 06/30/2014 11:59 PM EDT Hospital Encounter [facility] [address] [place] [address] Jim Penn MD Lumbar radiculopathy Discharge Disposition: Home or Self Care 06/17/2014 Telephone [facility] [address] [place] [address] Jim Penn MD Follow-up 06/03/2014 9:47 AM EST - 06/03/2014 11:59 PM EST Hospital Encounter [facility] Physical [address] [place] [address] [place] Garza, PT Discharge Disposition: Home or Self Care 06/02/2014 8:47 AM EST - 06/02/2014 11:59 PM EST Hospital Encounter [address] [place] [address] Jim Penn MD Lumbar radiculopathy Discharge Disposition: Home or Self Care 05/28/2014 9:03 AM EST - 05/28/2014 11:59 PM EST Hospital Encounter [address] [place] [address] [place] Garza, PT Lumbar radiculopathy (Primary Dx) Discharge Disposition: Home or Self Care 05/20/2014 3:00 PM EST Office Visit [address] [place] [address] Jim Penn MD Lumbar radiculopathy (Primary Dx) 04/10/2014 Refill SEP [address] [place] [address] Abdulkadir Montoya MD Medication Refill 04/08/2014 Telephone SEP [facility] [address] [place] [address] Abdulkadir Montoya MD Other (discuss pain) 04/07/2014 Orders Only SEP [place] [address] [place] [address] Abdulkadir Montoya MD Bulging disc (Primary Dx) 04/03/2014 8:39 AM EST - 04/03/2014 11:59 PM EST Hospital Encounter [facility] Ericka MRI [address], [place] [address] Abdulkadir Montoya MD Lumbosacral radiculopathy at L3; Lumbosacral radiculopathy at L5 Discharge Disposition: Home or Self Care 04/01/2014 11:50 AM EST Office Visit [address] [place] [address] Abdulkadir Montoya MD Acute bronchitis (Primary Dx); Hypothyroidism 03/25/[address] [place] [address] Abdulkadir Montoya MD Orders 03/24/2014 11:30 AM EST - 03/24/2014 11:59 PM EST Hospital Encounter [facility] EMG [address] [place] [address] Aracely Luz MD Intervertebral lumbar disc disorder with myelopathy, lumbar region (Primary Dx); Neuralgia and neuritis; Headache; Facial numbness; Bilateral leg numbness Discharge Disposition: Home or Self Care 03/17/2014 10:20 AM EST Office Visit [address] [place] [address] Abdulkadir Montoya MD Neuralgia and neuritis (Primary Dx); Headache; Facial numbness; Bilateral leg numbness 03/06/2014 4:24 PM EST - 03/06/2014 11:59 PM EST Hospital Encounter GRT XRAY [address] [facility] [place] [address] Low back pain Discharge Disposition: Home or Self Care 03/03/2014 10:50 AM EST Office Visit [address] [place] [address] Abdulkadir Montoya MD Asthma, moderate persistent, uncomplicated (Primary Dx); Low back pain 02/28/2014 3:39 PM EST - 02/28/2014 5:35 PM EST Emergency [facility] [address] [place] [address] Jose MartinCe willingham, DO Cough (Primary Dx) Discharge Disposition: Home or Self Care 02/10/2014 Patient Outreach [facility] [address] [place] [address] Destinee Yang, material handling technician (ED follow up within 72 hours) 02/07/2014 8:24 PM EDT - 02/07/2014 9:21 PM EDT Emergency [facility] [address] [facility] [place] [address] Ugo Sr MD Low back pain (Primary Dx) Discharge Disposition: Home or Self Care 01/20/2014 Telephone [place] [address] [place] [address] Abdulkadir Montoya MD Other 01/07/2014 Refill [place]P [place] [address] [place] [address] Abdulkadir Montoya MD Medication Refill 11/12/2013 4:43 PM EDT - 11/12/2013 11:59 PM EDT Hospital Encounter EDG LAB VEL PROCESSING [facility] [place] [address] Hypothyroidism; Asthma, moderate persistent, uncomplicated; Weight gain Discharge Disposition: Home or Self Care 11/12/2013 10:30 AM EDT Office Visit SEP [place] [address] [place] [address] Abdulkadir Montoya MD Asthma, moderate persistent, uncomplicated (Primary Dx); Hypothyroidism; Weight gain 11/11/2013 Telephone SEP [employer] [address] [place] [address] Destinee Yang, material handling technician 11/08/2013 3:38 PM EDT - 11/08/2013 4:49 PM EDT Emergency [place] [facility] [address] [facility] [place] [address] John Alfredo MD Asthma exacerbation, unspecified asthma severity (Primary Dx) Discharge Disposition: Home or Self Care 09/26/2013 Refill [place] [address] [place] [address] Abdulkadir Montoya MD Medication Refill 09/09/2013 9:33 PM EDT - 09/09/2013 10:32 PM EDT Emergency [place] [facility] [address] [facility] [place] [address] William Hawk MD Shingles (Primary Dx) Discharge Disposition: Home or Self Care 07/03/2013 Refill [facility] [place] [address] [place], [place] [address] Abdulkadir Montoya MD Medication Refill 07/01/2013 10:20 AM EDT Office Visit [address] [place], [place] [address] Abdulkadir Montoya MD Abdominal pain (Primary Dx) 05/20/2013 8:50 AM EST Office Visit [address] [place] [address] Abdulkadir Montoya MD Meralgia paresthetica of left side (Primary Dx); Asthma; Acute bronchitis 03/16/[address] [place] [address] Abdulkadir Montoya MD Medication Refill 02/04/2013 8:00 AM EDT - 02/04/2013 8:30 AM EDT Surgery [facility] [address] [facility] [place] [address] Kendall Garcia MD SHOULDER ARTHROSCOPY ROTATOR CUFF REPAIR/ SUBACROMIAL DECOMPRESSION/ MACARIO 02/04/2013 6:01 AM EDT - 02/04/2013 11:40 AM EDT Hospital Encounter [facility] SAME DAY SURGERY [address] [place] [address] Kendall Garcia MD Discharge Disposition: Home or Self Care 01/18/2013 3:13 PM EDT - 01/18/2013 5:00 PM EDT Emergency [facility] [address] [place] [address] Abdiel Uribe MD Contusion (Primary Dx) Discharge Disposition: Home or Self Care 01/16/2013 11:19 AM EDT - 01/16/2013 11:59 PM EDT Hospital Encounter [facility] MRI [address] [place] [address] Abdulkadir Montoya MD Right shoulder pain Discharge Disposition: Home or Self Care 01/14/[address] [place] [address] Abdulkadir Montoya MD Other 01/08/2013 9:00 AM EDT - 01/08/2013 11:59 PM EDT Hospital Encounter [facility] XRAY [address] [place] [address] Right shoulder pain Discharge Disposition: Home or Self Care 01/07/2013 12:10 PM EDT Office Visit SEP [address] [place] [address] Abdulkadir Montoya MD Right shoulder pain (Primary Dx); Rotator cuff tear 01/07/2013 Telephone SEP [address] [place] [address] Abdulkadir Montoya MD Shoulder Injury 12/09/2012 Refill SEP [address] [place] [address] Abdulkadir Montoya MD Medication Refill 08/30/2012 Refill SEP [address] [place] [address] Abdulkadir Montoya MD Medication Refill 08/23/2012 11:52 AM EDT - 08/23/2012 12:45 PM EDT Emergency [facility] [address] [place] [address] Jj Lozada MD Foot pain (Primary Dx); Plantar fasciitis Discharge Disposition: Home or Self Care 08/14/2012 1:40 PM EDT Office Visit SEP [address] [place] [address] Abdulkadir Montoya MD Peripheral neuropathy (Primary Dx) 06/28/2012 2:40 PM EST Office Visit SEP Gen Surgery [facility]TT [address] [place] [address] Faith Navas MD Post-operative state (Primary Dx) 06/18/2012 10:45 AM EST - 06/18/2012 11:45 AM EST Surgery [facility] [address] [place] [address] Faith Navas MD LAPAROSCOPIC CHOLECYSTECTOMY POSSIBLE OPEN 06/18/2012 8:27 AM EST - 06/18/2012 5:13 PM EST Hospital Encounter [facility] SAME DAY SURGERY [address] [place] [address] Faith Navas MD Discharge Disposition: Home or Self Care 06/15/2012 Telephone SEP Gen Surg EDG [address] [facility] [address] [place] [address] Randa Boyer MA Visit Follow Up 06/15/2012 Telephone SEP Gen Surg EDG [address] [facility] [address] [place] [address] Faith Navas MD Surgery 06/14/2012 9:20 AM EST Office Visit [facility] Gen Surgery FTT [address] [place] [address] Faith Navas MD Symptomatic cholelithiasis (Primary Dx) 05/30/2012 4:00 PM EST Office Visit [place] [address] [place] [address] Abdulkadir Montoya MD Asthma (Primary Dx) 05/23/2012 Refill SEP [place] [address] [place] [address] Abdulkadir Montoya MD Medication Refill 04/27/2012 Refill SEP [place] [address] [place] [address] Abdulkadir Montoya MD Medication Refill 03/06/2012 10:20 AM EST Office Visit SEP Gen Surgery FTT [address] [place] [address] Faith Navas MD Biliary colic (Primary Dx) 03/02/2012 9:30 AM EST Office Visit [facility] [place] [place] [address] Alondra Oates MD URI (upper respiratory infection) (Primary Dx); Asthma; Hypothyroidism 02/22/2012 Refill [place] [address] [place] [address] Abdulkadir Montoya MD Medication Refill 08/04/2011 Orders Only [place] [address] [place] [address] Abdulkadir Montoya MD Thyroid disease (Primary Dx) 07/28/2011 3:15 PM EDT - 07/28/2011 11:59 PM EDT Hospital Encounter EDG LAB VEL PROCESSING [facility] [place] [address] Hypothyroid Discharge Disposition: Home or Self Care 07/28/2011 10:30 AM EDT Office Visit [facility] [place] [facility] [address] [place] [address] Abdulkadir Montoya MD Hypothyroid (Primary Dx); Acute gastroenteritis 05/23/2011 4:40 PM EST Office Visit [place] [place] [address] [place] [address] Abdulkadir Montoya MD Acute sinusitis (Primary Dx); Asthma; Dysmenorrhea 04/29/2011 11:00 AM EST Office Visit FITZ [place] [facility] [address] [place] [address] Abdulkadir Montoya MD Dressing change/suture removal (Primary Dx) 04/28/2011 5:42 PM EST - 04/28/2011 11:59 PM EST Hospital Encounter EDG LAB VEL PROCESSING [facility] [place] [address] MRSA infection Discharge Disposition: Home or Self Care 04/27/2011 4:20 PM EST Office Visit FITZ [place] [address] [place] [address] Abdulkadir Montoya MD MRSA infection (Primary Dx) 04/25/2011 9:10 AM EST Office Visit FITZ [place] [facility] [address] [place] [address] Abdulkadir Montoya MD Infected sebaceous cyst of skin (Primary Dx) 03/23/2011 5:38 PM EST - 03/23/2011 6:22 PM EST Emergency [facility] [address] [facility] [place] [address] Asthma; Bronchitis Discharge Disposition: Home or Self Care 10/12/2010 4:00 PM EDT Office Visit FITZ [place] [facility] [address] [place] [address] Abdulkadir Montoya MD Wrist sprain (Primary Dx) 08/23/2010 Telephone SEP Sujata [address] [place] [address] Abdulkadir Montoya MD URI 02/16/2010 Abstract SEP [facility] [address] [place] [address] Abdulkadir Montoya MD 01/14/2010 3:54 PM EDT - 01/14/2010 5:00 PM EDT Emergency [facility] [address] [facility] [place] [address] Nicolas Ríos MD Asthma with acute exacerbation Discharge Disposition: Home or Self Care 12/23/2008 4:14 PM EDT - 12/24/2008 7:08 PM EDT Hospital Encounter [facility] Physicians, [facility] Emergency GoodManav, Abdulkadir Carrillo MD 07/04/2008 2:59 PM EDT - 07/04/2008 [...] nebulization 0800, 1200, 1600, 2000. 60 Each 024 Active albuterol-budes onide (AIRSUPRA) 90-80 mcg/actuation Inhl HFA Aerosol InhalerIndicati ons:Mild intermittent asthma with acute exacerbation Inhale 2 Puffs into the lungs every 6 hours as needed. 10.7 g 1 Active EPINEPHrine (EPIPEN) 0.3 mg/0.3 mL Inj Auto-Injector Inject 0.3 mL into the muscle as needed for Anaphylaxis. 2 Each Active omeprazole (PRILOSEC) 40 mg Oral Capsule, Delayed Release(E.C.)In dications:Abdom inal pain, LUQ (left upper quadrant) Take 1 Capsule by mouth daily. 90 Capsule 3 025 Active hydroxychloroqu ine (PLAQUENIL) 200 mg Oral TabletIndicatio ns:YNES positive TAKE 1 TABLET BY MOUTH EVERY DAY 30 Tablet 5 Active LEVOthyroxine (SYNTHROID) 175 mcg Oral Tablet Take 1 Tablet by mouth daily. Active rOPINIRole (REQUIP) 1 mg Oral TabletIndicatio ns:Restless legs syndrome (RLS) TAKE 1 TABLET BY MOUTH EVERY DAY AT NIGHT 90 Tablet 1 Active tiZANidine (ZANAFLEX) 4 mg Oral Tablet Take 1 Tablet by mouth nightly as needed for Muscle spasms. 30 Tablet Active PARoxetine (PAXIL) 20 mg Oral Tablet TAKE 1 TABLET BY MOUTH EVERY DAY 30 Tablet Active acetaminophen (TYLENOL) 500 mg Oral Tablet Take 1 Tablet by mouth every 6 hours as needed for Pain for up to 30 days. 30 Tablet 025 2024 Active gabapentin (NEURONTIN) 400 mg Oral Capsule TAKE 1 CAPSULE BY MOUTH 3 TIMES DAILY FOR 90 DAYS. 90 Capsule 2 025 2024 Active cetirizine (ZYRTEC) 10 mg Oral TabletIndicatio ns:seasonal allergic rhinitis Take 10 mg by mouth daily. Indications: seasonal runny nose Active clonazePAM (KLONOPIN) 1 mg Oral TabletIndicatio ns:Seizure-like activity (HCC) Take 1 Tablet by mouth 2 times daily for 10 days. 20 Tablet 025 2024 Active Brompheniramine -Pseudoeph-DM 2-30-10 mg/5 mL Oral SyrupIndication s:Viral URI with cough Take 10 mL by mouth every 4 hours as needed (Cough, Nasal Congestion, Allergies). 240 mL 1 025 2024 Discontinued(S top Taking at Discharge) gabapentin (NEURONTIN) 400 mg Oral Capsule Take 1 Capsule by mouth 3 times daily for 90 days. 90 Capsule 2 025 2024 Discontinued ibuprofen (ADVIL;MOTRIN) 800 mg Oral TabletIndicatio ns:Stress reaction of left foot, initial encounter,Peron eal tendinitis of left lower extremity,Painf ul os peroneum syndrome Take 1 Tablet by mouth every 6 hours as needed. 40 Tablet 025 2024 Discontinued(S top Taking at Discharge) meloxicam (MOBIC) 15 mg Oral TabletIndicatio ns:Acute midline low back pain without sciatica TAKE 1 TABLET BY MOUTH EVERY DAY 30 Tablet 2 025 2024 Discontinued(S top Taking at Discharge) PARoxetine (PAXIL) 20 mg Oral Tablet TAKE 1 TABLET BY MOUTH EVERY DAY 30 Tablet 025 2024 Discontinued fUROsemide (LASIX) 40 mg Oral Tablet TAKE 1 TABLET BY MOUTH EVERY DAY 30 Tablet 025 2024 Discontinued(S top Taking at Discharge) methylPREDNISol one (MEDROL DOSPACK) 4 mg Oral Tablets, Dose Pack See package instructions 21 Tablet 025 2024 Discontinued(S top Taking at Discharge) methocarbamoL (ROBAXIN) 750 mg Oral Tablet Take 1 Tablet by mouth 3 times daily as needed for Pain for up to 30 days. 20 Tablet 025 2024 Discontinued(S top Taking at Discharge) Active Problems Problem Noted Date Diagnosed Date Seizure-like activity 11/17/2024 Assessment & Plan (11/19/2024 2:22 PM EDT): Orders: THYROID STIMULATING HORMONE; Future T4, FREE (THYROXINE); Future SEDIMENTATION RATE AUTOMATED; Future C-REACTIVE PROTEIN; Future COMPREHENSIVE METABOLIC PANEL; Future clonazePAM (KLONOPIN) 1 mg Oral Tablet; Take 1 Tablet by mouth 2 times daily for 10 days. Assessment & Plan (11/17/2024 10:25 AM EDT): Seen and discussed w neurologist -EEG here -suspect psychogenic -Likely will marcelino OP CBT for this issue Seizure 11/17/2024 Female cystocele 01/24/2024 Rectocele 01/24/2024 Stress incontinence [...] to Conchis's thyroiditis Overview (01/10/2019): On synthroid. Assessment & Plan (11/17/2024 10:25 AM EDT): TSH ordered Asthma 05/23/2011 Class 3 severe obesity due t o excess calories with body mass index (BMI) of 60.0 to 69.9 in adult Overview (10/28/2022): Unable to get GLP covered. Recommend bariatric follow-up, referral placed Assessment & Plan (11/17/2024 10:25 AM EDT): Complicates all issues Resolved Problems Problem Noted Date Diagnosed Date Resolved Date Non-recurrent acute suppurat alirio otitis media of right ear without spontaneous rupture of tympanic membrane 09/01/2023 03/13/2024 Acute respiratory failure with hypoxia 04/04/2023 03/13/2024 Multifocal pneumonia 04/03/2023 024 Abnormal uterine bleeding (AUB) 07/28/2020 09/08/2020 Overview (07/28/2020): Added automatically from request for surgery [id number] History of endometrial ablation 07/28/2020 09/08/2020 Overview (07/28/2020): Added automatically from request for surgery [id number] Intramural leiomyoma of uterus 07/28/2020 09/08/2020 Overview (07/28/2020): Added automatically from request for surgery [id number] Post-menopause bleeding 04/30/202008/22 Overview (04/30/2020): S/p partial [...] Terrence monteiro High Cholesterol Father Terrence monteiro Hypertension Father Terrence monteiro Kidney Disease Father Terrence monteiro Stroke Father Terrence monteiro Heart Disease Maternal Grandmother Kassandra Angel Arthritis Mother Deboraha Monteiro Diabetes Paternal Grandmother Kassandra Angel Heart Disease Paternal Grandmother Kassandra Angel High Blood Pressure Paternal Grandmother Kassandra Manuel s Diabetes Paternal Uncle Brayden Monteiro Heart Disease Paternal Uncle Brayedn Monteiro High Blood Pressure Paternal Uncle Brayden [...] Alive Social History Smoking Status as of 11/25/2024 Tobacco Use Types Packs/Day Years Used Date Smoking Tobacco: Never Assessed Overall Financial Resource Strain (CARDIA) Answe r Date Recorded How hard is it for you to pa y for the very basics like food, housing, medical care, and heating? Not hard at all 04/04/2023 PHQ-2 Answer Date Recorded PHQ-2 Total Score 0 04/04/2023 [facility] - Occupational Stress Questionnaire Answer [...] Mass Index 60.74 11/19/2024 1:49 PM EDT Plan of Treatment Upcoming Encounters Date Type Department Care Team (Late st Contact Info) Description 11/27/2024 8:00 AM EDT Appointment [facility] MRI [address] [place] [address] Abdulkadir Montoya MD [address] [place] [address] 02/10/2025 1:30 PM EDT Office Visit [facility] [address] [facility] [address] [place] [phone] Judith Lomax MD [address] [facility] [address] [place] [phone] Medical Devices Implanted Type Area Gym[employer] Teacher Device Identifier Shelf Expiration Date Model / Serial / Lot [employer] Advance Healix 5.5 Br - [id number] Implanted:Qty: 1 on 02/04/2013 by Kendall Garcia MD at [facility] Right: Shoulder J&J:ETHICON:AASHISH EK PRDT [id number] 08/22/2015 [id number] / / [id number] System Fixation Speedbridge Jumpart Biocomposite Achilles - [id number] Implanted:Qty: 1 on 09/28/2018 by Parveen Marsh MD at [facility] Left: Achilles Tendon ARTHREX 03/23/2020 [id number] [facility] / / [id number] Desara Blue Tv Transvaginal Mesh Sling - [id number] Implanted:Qty: 1 on 04/04/2024 by Elmira Mendoza MD at [facility] 05/03/2026 [facility]-[id number] TV / / [id number] Procedures Procedure Name Priority Date/Time Associated Diagnosis Comments COMPREHENSIVE METABOLIC PANEL Routine 11/19/2024 2:22 PM EDT Seizure-like activity (HCC) C-REACTIVE PROTEIN Routine 11/19/2024 2:22 PM EDT Seizure-like activity (HCC) SEDIMENTATION RATE AUTOMATED Routine 11/19/2024 2:22 PM EDT Seizure-like activity (HCC) T4, FREE (THYROXINE) Routine 11/19/2024 2:22 PM EDT Seizure-like activity (HCC) THYROID STIMULATING HORMONE Routine 11/19/2024 2:22 PM EDT Seizure-like activity (HCC) EEG LTM UNATTENDED EACH 2-12 HOURS Routine 11/17/2024 6:32 PM EDT ADMIT Routine 11/17/2024 12:31 PM EDT ECG AND WAVEFORMS - TELEMETRY Routine 11/17/2024 8:35 AM EDT LACTIC ACID Routine 11/17/2024 1:15 AM EDT BASIC METABOLIC PANEL Routine 11/17/2024 1:15 AM EDT CBC WITH DIFF Routine 11/17/2024 1:15 AM EDT IP CONSULT TO NEUROLOGY STAT 11/17/2024 12:31 AM EDT Procedure Note - Ben Rossi MD - 11/17/2024 9:37 AM EDTThis note [...] Conchis's disease Headache Heartburn Hypothyroidism Neuromuscular disorder ([facility]) legs and feet Pneumonia 2018 Postoperative nausea and vomiting 01/29/2013 Rash Rotator cuff injury 01/29/2013 currently right rotator cuff injury. 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 MAIN OR; Service:Orthopedics APPENDECTOMY BACK SURGERY laminectomy, discectomy SECTION CHOLECYSTECTOMY, LAPAROSCOPIC 06/18/2012 LAPAROSCOPIC CHOLECYSTECTOMY ; Surgeon: Faith Navas MD; Location:[facility]; Service: General CYSTOCELE REPAIR N/A 04/04/2024 Anterior Repair; Posterior Repair; Placement of Retropubic MidurethralMesh Sling; Cystoscopy; Surgeon: Elmira Mendoza MD; Location:[facility]; Service: Gynecology DENTAL SURGERY 01/29/2013 premolar DILATION AND CURETTAGE OF UTERUS ENDOMETRIAL ABLATION N/A 07/29/2015 Surgeon: Manuel Moran MD; Location: [facility] MAIN OR; Service: Gynecology HYSTERECTOMY Left 08/11/2020 ROBOTIC ASSISTED TOTAL LAPAROSCOPIC HYSTERECTOMY LEFT OOPHORECTOMY ;Surgeon: Beverly Hernandez DO; Location: [facility] MAIN OR; Service:Gynecology HYSTEROSCOPY August LAPAROSCOPY Right 07/29/2015 DAVINCI ROBOTIC ASSISTED LAPAROSCOPY BILATERAL SALPINGECTOMY, RIGHTOOPHERECTOMY WITH DILATION AND CURETTAGE HYSTEROSCOPY ABLATION WITHNOVASURE; Surgeon: Manuel Moran MD; Location: [facility] MAIN OR; Service:Gynecology LUMBAR DISC SURGERY Bilateral 03/11/2016 LUMBAR LAMINECTOMY AND DISCECTOMY LEFT L5/S1 ; Surgeon: Yogesh Garcia MD; Location: [facility] MAIN OR; Service: Neurosurgery OVARY REMOVAL Right SHOULDER ARTHROSCOPY Right 02/04/2013 RIGHT SHOULDER ARTHROSCOPY, ROTATOR CUFF REPAIR, SUBACROMIALDECOMPRESSION, MACARIO, DEBRIDEMENT ; Surgeon: Kendall Garcia MD;Location: [facility] MAIN OR; Service: Orthopedics SHOULDER SURGERY SOFT TISSUE BIOPSY N/A 03/29/2016 INCISION AND DRAINAGE LUMBAR WOUND; Surgeon: Ramesh Garcia MD;Location: [facility] MAIN OR; Service: Neurosurgery SPINE SURGERY TONSILLECTOMY TUBAL LIGATION URETHROPEXY N/A 04/04/2024 .; Surgeon: Elmira Mendoza MD; Location: [facility] MAIN OR;Service: Gynecology Medications No current facility-administered [...] asneeded for Muscle spasms. 30 Tablet 0 Hlolyejqwuvhnmy-Tushxfckw-XB 2-30-10 mg/5 mL Oral Syrup Take 10 mL bymouth every 4 hours as needed (Cough, Nasal Congestion, Allergies).(Patient not taking: Reported on 11/16/2024) 240 mL 1 cetirizine (ZYRTEC) 10 mg Oral Tablet Take 10 mg by mouth daily.Indications: seasonal runny nose COLLAGEN MISC 2 Tablets by [facility]Non-Drug; Combo Route) route daily.Collagen Peptide Multivitamin docusate [...] weeks intact. Pupils 4mm, equal and reactive tolight [...] - Referral for [facility] at [facility] or [facility] at discharge. - [...] - TELEMETRY Routine 11/16/2024 9:[address] LOWER EXTREMITY RIGHT WO CONTRAST STAT [...] to Anesthesia: Patient needs Paralysis for Procedure [place] CYSTOURETHROSCOPY 04/04/2024 12:16 PM EST Female cystocele Rectocele Stress incontinence in female Special Needs *Note to Anesthesia: Patient needs Paralysis for Procedure [place] SLING OPERATION STRESS INCONTINENCE 04/04/2024 12:16 PM EST Female cystocele Rectocele Stress incontinence in female Special Needs *Note to Anesthesia: Patient needs Paralysis for Procedure [place] CMBND ANTERPOST COLPORRAPHY W/CYSTO 04/04/2024 12:16 PM EST Female cystocele Rectocele Stress incontinence in female Special Needs *Note to Anesthesia: Patient needs Paralysis for Procedure XR CHEST PA AND LATERAL FELI 03/14/2024 2:39 PM EST [id number] A/B Routine 03/14/2024 2:35 PM EST SALINE [...] EST CBC STAT 04/03/2023 12:50 PM EST [id number] A/B Routine 04/03/2023 12:50 PM EST EK [...] 10:00 AM EDT Positive YNES (antinuclear antibody) [id number] 1 ABS, IGG/IGM/IGA -REF LAB Routine 02/09/2023 [...] PM EDT Acute pain of left knee [place] ARTHROCENTESIS ASPIR&/INJ MAJOR JT/BURSA W/O US Routine [...] Routine 04/30/2020 10:10 AM EST Post-menopause bleeding RAKE OPERATOR CYTOLOGY REQUEST (PAP ONLY) Routine 04/30/2020 9:55 AM EST Post-menopause bleeding Cervical cancer screening [facility] RAKE OPERATOR CYTOLOGY ORDER Routine 04/30/2020 9:55 AM EST [...] left Special Needs PRONE, MICRO SAW, ARTHREX ACHSOWMYA SPEEDBRIDGE, ARTHREX NOTIFIED 6/5 MAS ESTROGENS, FRACTIONATED BY [...] AM ESTThis note is in progress. Dictated [id number]) Lumbar wound infection: S/P OR and [...] Primary Care Provider: Abdulkadir Montoya MD (General) Webbing Tacker: None Chief Complaint: Chest pain Referring MD: [...] Cholecystectomy, laparoscopic 06/18/2012 Family History: Father - [place] - age 35-40 Maternal grandmother - [place], age 60's Social History: Reports that she [...] follow-up from Dr. Nieto / Jany Desai, [employer]PER[employer] 10/17/2014 I have reviewed the chief complaint [...] should have an angiogram. Elton Carmichael MD [facility] TROPONIN-T STAT 10/16/2014 8:39 PM EDT EK [...] region Rotator cuff (capsule) sprain Special Needs CPT;23540 [id number] EK EKG 12 LEAD Routine 02/04/2013 6:48 [...] of cholecystitis or obstruction Special Needs CPT 27779 RANDA DIFFERENTIAL Routine 06/18/2012 9:14 AM EST [...] Routine 10/29/2004 12:00 AM EDT Results * SEDIMENTATION RATE AUTOMATED (11/19/2024 2:22 PM EDT) Only the most recent of3 resultswithin the time period is included. Sed Rate 15 0 - 20 mm/hr 11/19/2024 8:15 PM EDT [facility], [facility] Blood VENOUS BLOOD / Unknown Venipuncture / Unknown 11/19/2024 2:22 PM EDT 11/19/2024 2:22 PM EDT Abdulkadir Montoya MD HEMATOLOGY ORDERABLES Final Re sult Performing Organization Address [facility] Co de Phone Number [facility] [employer] [facility] [address] [facility] , [place] [address] * (ABNORMAL) C-REACTIVE PROTEIN (11/19/2024 2:22 PM EDT) Only the most recent of3 resultswithin the time period is included. CRP 17.09(H) <=5.00 mg/L 11/20/2024 12:23 AM EDT [facility] [employer] Blood VENOUS BLOOD / Unknown Venipuncture / Unknown 11/19/2024 2:22 PM EDT 11/19/2024 2:22 PM EDT Abdulkadir Montoya MD CHEMISTRY ORDERABLES Final Res ult Performing Organization Address [facility] de Phone Number [facility] [employer] [facility] [address] [facility] , [place] [address] * THYROID STIMULATING HORMONE (11/19/2024 2:22 PM EDT) Only the most recent of17 resultswithin the time period is included. TSH 0.411 0.270 - 4.200 mcIU/mL 11/20/2024 12:23 AM EDT [facility] Blood VENOUS BLOOD / Unknown Venipuncture / Unknown 11/19/2024 2:22 PM EDT 11/19/2024 2:22 PM EDT Narrative [facility] [employer] - 11/20/2024 12:23 AM EDT Ingestion of rayshawn doses of biotin (>5 mg/day) taken within 8 hours of drawing blood sample can interfere with this immunoassay test. Abdulkadir Montoya MD CHEMISTRY ORDERABLES Final Res ult Performing Organization Address [facility] Co de Phone Number [facility] [employer] [facility] [address] , [address] [place] [phone] * T4, FREE (THYROXINE) (11/19/2024 2:22 PM EDT) Only the most recent of14 resultswithin the time period is included. Free T4 1.38 0.80 - 1.80 ng/dL 11/20/2024 12:23 AM EDT [facility] Blood VENOUS BLOOD / Unknown Venipuncture / Unknown 11/19/2024 2:22 PM EDT 11/19/2024 2:22 PM EDT Narrative [facility] - 11/20/2024 12:23 AM EDT Ingestion of rayshawn doses of biotin (>5 mg/day) taken within 8 hours of drawing blood sample can interfere with this immunoassay test. us Abdulkadir Montoya MD CHEMISTRY ORDERABLES Final Res ult [facility], [facility] [address] [facility] [facility] [address] [address] , [address] [place] [phone] * (ABNORMAL) COMPREHENSIVE METABOLIC PANEL (11/19/2024 2:22 PM EDT) Only the most recent of9 resultswithin the time period is included. Sodium 143 136 - 145 mmol/L 11/20/2024 [...] 11/20/2024 12:23 AM EDT [facility] Albumin 4.0 3.5 - 5.2 gm/dL 11/20/2024 12:23 AM EDT [facility] Total Protein 7.0 6.4 - 8.3 gm/dL 11/20/2024 12:23 AM EDT [facility] Bili Total 0.3 0.2 - 1.3 mg/dL 11/20/2024 12:23 AM EDT [facility] ALT 23 <=41 U/L 11/20/2024 12:23 AM EDT [facility] AST 29 <=40 U/L 11/20/2024 12:23 AM EDT [facility] Alk Phos 104 36 - 123 U/L 11/20/2024 12:23 AM EDT [facility], [facility] eGFR (CKD-EPIcr 2020) 86 >=60 mL/min/1.7 3 m2 11/20/2024 12:23 AM EDT [facility], [facility] Comment:Estimated GFR was ca lculated using the CKD-EPIcr (2020) equation refit without race. The equation is recommended by the National Kid[employer] - [place] [employer] of Nephrology Task Force. Blood VENOUS BLOOD / Unknown Venipuncture / Unknown 11/19/2024 2:22 PM EDT 11/19/2024 2:22 PM EDT us Abdulkadir Montoya MD CHEMISTRY ORDERABLES Final Res ult [facility] [address] [facility] [facility] [address] , [address] [place] [phone] * EEG LTM UNATTENDED EACH 2-12 HOURS (11/17/2024 6:32 PM EDT) Anatomical Region Laterality Modality Electroencephalo graphy Narrative 11/18/2024 12:48 AM EDT [facility] DEPARTMENT OF NEUROLOGY [facility] Patient: Gisela Kennedy Age: 49 y.o. [...] nature of the patient's clinical events. Gisela Kennedy was not on antiseizure medications. Technical Description: [...] WAVEFORMS - TELEMETRY (11/17/2024 8:35 AM EDT) Only the most recent of5 resultswithin the time period is included. ECG INTERPRET NSR [facility] 11/17/2024 8:35 AM EDT Narrative [facility] - 11/17/2024 8:53 AM EDT MG/ROUTINE [place] 0.17 QRS 0.10 RR 0.77 QT 0.37 QTc 0.42 See Clinical Report link for waveform capture us Unknown Provider POINT OF CARE CARDIOLOGY Final Result [facility] [address] [place] [phone] * CBC WITH DIFF (11/17/2024 1:15 AM EDT) Only the most recent of21 resultswithin the time period is included. WBC 6.9 3.7 - 10.3 x10(3)/mcL 11/17/2024 1:25 AM EDT [facility] RBC 4.36 3.90 - 5.20 x10(6)/mcL 11/17/2024 1:25 AM EDT [facility] Hgb 11.5 11.2 - 15.7 g/dL 11/17/2024 1:25 AM EDT [facility] Hct 35.7 34.0 - 45.0 % 11/17/2024 1:25 AM EDT [facility] MCV 81.9 80.0 - 100.0 fL 11/17/2024 1:25 AM EDT [facility] MCH 26.4 26.0 - 34.0 pg 11/17/2024 1:25 AM EDT [facility] MCHC 32.2 30.7 - 35.5 g/dL 11/17/2024 1:25 AM EDT [facility] RDW 14.7 <=14.9 % 11/17/2024 1:25 AM EDT [facility] Platelet 198 155 - 369 x10(3)/mcL 11/17/2024 1:25 AM EDT [facility] MPV 11.3 8.8 - 12.5 fL 11/17/2024 1:25 AM EDT [facility] Neut Percent 50.0 % 11/17/2024 1:25 AM EDT [facility] Comment:Neutrophils equals s egs plus bands Imm Gran% 0.1 % 11/17/2024 1:25 AM EDT [facility] Comment:Automated count of m etamyelocytes, myelocytes and promyelocytes. Lymph Percent 36.6 % 11/17/2024 1:25 AM EDT [facility] Price Percent 9.1 % 11/17/2024 1:25 AM EDT [facility] Eos Percent 3.9 % 11/17/2024 1:25 AM EDT [facility] Baso Percent 0.3 % 11/17/2024 1:25 AM EDT [facility] Neut # 3.5 1.6 - 6.1 x10(3)/[facility] 11/17/2024 1:25 AM EDT [facility] Comment:Neutrophils equals s egs plus bands IMMGRAN# 0.0 0.0 - 0.1 x10(3)/[facility] 11/17/2024 1:25 AM EDT [facility] Comment:Automated count of m etamyelocytes, myelocytes and promyelocytes. An absolute IG <0.1 is reported as 0.0. Lymph # 2.5 1.2 - 3.9 x10(3)/[facility] 11/17/2024 1:25 AM EDT [facility] Price # 0.6 0.3 - 0.9 x10(3)/[facility] 11/17/2024 1:25 AM EDT [facility] Eos# 0.3 0.0 - 0.5 x10(3)/[facility] 11/17/2024 1:25 AM EDT [facility] Baso # 0.0 0.0 - 0.1 x10(3)/[facility] 11/17/2024 1:25 AM EDT [facility] Blood VENOUS BLOOD / Unknown Venipuncture / Unknown 11/17/2024 1:15 AM EDT 11/17/2024 1:22 AM EDT us Aracely Anderson MD HEMATOLOGY ORDERABLES Final Re sult [facility] [address] [place] [address] * LACTIC ACID (11/17/2024 1:15 AM EDT) Only the most recent of2 resultswithin the time period is included. [facility] Lactic Acid 0.9 0.5 - 1.9 mmol/L 11/17/2024 1:39 AM EDT [facility] Blood VENOUS BLOOD / Unknown Venipuncture / Unknown 11/17/2024 1:15 AM EDT 11/17/2024 1:22 AM EDT us Aracely Anderson MD CHEMISTRY ORDERABLES Final Res ult [facility] [address] [place] [address] * (ABNORMAL) BASIC METABOLIC PANEL (11/17/2024 1:15 AM EDT) Only the most recent of17 resultswithin the time period is included. [facility] Sodium 144 136 - 145 mmol/L 11/17/2024 1:40 AM EDT [facility] Potassium 3.7 3.5 - 5.0 mmol/L 11/17/2024 1:40 AM EDT [facility] Chloride 111(H) 98 - 107 mmol/L 11/17/2024 1:40 AM EDT [facility] Total CO2 21(L) 22 - 29 mmol/L 11/17/2024 1:40 AM EDT [facility] Anion Gap 12 7 - 16 mmol/L 11/17/2024 1:40 AM EDT [facility] Calcium 8.6 8.6 - 10.4 mg/dL 11/17/2024 1:40 AM EDT [facility] Glucose Lvl 90 70 - 99 mg/dL 11/17/2024 1:40 AM EDT [facility] BUN 9 6 - 20 mg/dL 11/17/2024 1:40 AM EDT [facility] [facility] Creatinine 0.82 0.51 - 1.30 mg/dL 11/17/2024 1:40 AM EDT [facility] eGFR (CKD-EPIcr 2020) 88 >=60 mL/min/1.7 3 m2 11/17/2024 1:40 AM EDT [facility] Comment:Estimated GFR was ca lculated using the CKD-EPIcr (2020) equation refit without race. The equation is recommended by the National Kidney Foundation - [place] Society of Nephrology Task Force. Blood VENOUS BLOOD / Unknown Venipuncture / Unknown 11/17/2024 1:15 AM EDT 11/17/2024 1:22 AM EDT Aracely Anderson MD CHEMISTRY ORDERABLES Final Res ult Performing Organization Address [facility] Co de Phone Number [facility] [address] [place] [address] * GLUCOSE METER POC (11/17/2024 12:01 AM EDT) [facility] Glucose Meter POC 88 70 - 100 mg/dL 11/17/2024 12:03 AM EDT [facility] Sample Type Capillary 11/17/2024 12:03 AM EDT [facility] Patient Status Non-Critical Patient 11/17/2024 12:03 AM EDT [facility] Blood BLOOD SPECIMEN / Unknown 11/17/2024 12:01 AM EDT 11/17/2024 12:03 AM EDT Arcadio Ruiz MD POINT OF CARE TEST ORDERABL ES Final Result Performing Organization Address [facility] de Phone Number [facility] [address] [place] [address] * CT LOWER EXTREMITY RIGHT WO CONTRAST [...] ordering clinician. us Yin Raygoza PA-C IMG CT ORDERABLES Final [...] EDT Impressions 10/30/2024 10:39 AM EDT Negative (ZAL-Btcefroy-1) RECOMMENDATION: Routine Screening Mammogram in 1 Year Bilateral . . COMMENTS: DISCLAIMER *The patient was notified by MyChart or mail of the results for this examination. *The patient's information was entered into a reminder system with a target due date for the next breast imaging, in accordance with the [place] [employer] and the Society of [...] for screening mammogram for malignant neoplasm of eswenb-ELV-79-CM COMPARISON STUDIES: Compared with prior studies the most recent being 09/16/2022 MM MAMMO DIGITAL TRACIE SCREEN BILAT at [facility] TISSUE DENSITY: There are scattered areas of fibroglandular density. FINDINGS: No mammographic evidence of malignancy. Procedure Note Kaleb Jimenez MD - 10/30/2024 EXAM: MM MAMMO DIGITAL TRACIE SCREEN BILAT EXAM DATE: 10/30/2024 10:03 AM INDICATION: Z12.31-Encounter for screening mammogram for malignantneoplasm of uzjayz-QIB-67-CM COMPARISON STUDIES: Compared with prior studies the most recent being 09/16/2022 MM MAMMO DIGITAL TRACIE SCREEN BILAT at [facility] TISSUE DENSITY: There are scattered areas of fibroglandular density. FINDINGS: No mammographic evidence of malignancy. IMPRESSION: Negative (AGE-Qseorcql-9) RECOMMENDATION: Routine Screening Mammogram in 1 Year Bilateral . . COMMENTS: DISCLAIMER *The patient was notified by MyChart or mail of the results for this examination. *The patient's information was entered into a reminder system with atarget due date for the next breast imaging, in accordance with the [place] [employer] and the Society of Breast Imaging recommendations. *Breast Imaging has a false negative rate of 15%. *Any patient with a palpable abnormality, unexplained by breast imaging,should be managed on a clinical basis by the attending physician. us Arminda Wilson [employer] IMG MAMMOGRAPHY ORDERABLES Final Result * SCANNED EKG (09/17/2024 9:34 AM EDT) Only the most recent of5 resultswithin the time period is included. Anatomical Region Laterality Modality Other 09/17/2024 9:34 AM EDT us Unknown Provider IMG ECG ORDERABLES Final Result * TROPONIN-T HIGH SENSITIVITY 2HR (09/16/2024 12:23 PM EDT) Only the most recent of2 resultswithin the time period is included. bl-aOcpdzngg-W 2HR <6 <14 ng/L 09/16/2024 12:44 PM EDT [facility] hs-cTnT 2Hr Delta from Baseline <-2 <4 ng/L 09/16/2024 12:44 PM EDT [facility] Blood VENOUS BLOOD / Unknown Venipuncture / Unknown 09/16/2024 12:23 PM EDT 09/16/2024 12:25 PM EDT Narrative [facility] - 09/16/2024 12:44 PM EDT Ingestion of rayshawn doses of biotin (>5 mg/day) taken within 8 hours of drawing blood sample can interfere with this immunoassay test. us Abdiel Barclay MD CHEMISTRY ORDERABLES Final Result [facility] [address] [place] [address] [place] [address] * CT ANGIOGRAM PULMONARY W [...] Isovue 370 IV contrast as recorded in [employer]. 2-D multiplanar reconstructions and 3-D MIP reconstructions [...] using Isovue 370 IVcontrast as recorded in [employer]. 2-D multiplanar reconstructions and 3-D MIP reconstructions [...] ordering clinician. us Abdiel Barclay MD IMG DIAGNOSTIC IMAGING ORDE RABPANCHO Final Result * TROPONIN-T HIGH SENSITIVITY BASELINE W/ REFLEX (09/16/2024 10:23 AM EDT) Only the most recent of2 resultswithin the time period is included. da-dJfkkvceh-I 8 <14 ng/L 09/16/2024 10:50 AM EDT [facility] Blood VENOUS BLOOD / Unknown Venipuncture / Unknown 09/16/2024 10:23 AM EDT 09/16/2024 10:33 AM EDT Narrative [facility] - 09/16/2024 10:50 AM EDT Ingestion of rayshawn doses of biotin (>5 mg/day) taken within 8 hours of drawing blood sample can interfere with this immunoassay test. Result [facility] Abdiel Barclay MD CHEMISTRY ORDERABLES Final Result Performing Organization Address City/State/[facility] Co de Phone Number [address] [address] * (ABNORMAL) D-DIMER (09/16/2024 10:23 AM EDT) Only the most recent of4 resultswithin the time period is included. [facility] D-Dimer 677(H) <=500 ng/mL FEU 09/16/2024 10:59 AM EDT [facility] Comment:This is an automated latex [...] 10:23 AM EDT 09/16/2024 10:33 AM EDT Result [facility] Abdiel Barclay MD HEMATOLOGY ORDERABLES Final Result [facility] [address] [place] [address] * EK EKG 12 LEAD (09/16/2024 9:26 AM EDT) Only the most recent of11 resultswithin the time period is included. Anatomical Region Laterality Modality Electrocardiogra phy 09/16/2024 9:31 AM EDT Impressions 09/16/2024 6:55 PM EDT [facility] Test Date: 2024-09-16 Pat Name: GISELA PEREZ Department: DEPID Room: Gender: Female Part Time Flexible Clerk: [facility] : 1975 Requested By: [facility] Order Number: [id number] Reading MD: Juan J Spence MD Measurements Intervals [place] Rate: 74 P: 50 [place]: 143 QRS: 28 QRSD: 108 T: 19 QT: 395 QTc: 441 Interpretive Statements SINUS RHYTHM Electronically Signed On 09-16-2024 18:55:14 EDT by Juan J Spence MD Narrative Procedure Note Juan J Spence MD - 09/16/2024 IMPRESSION [facility] Test Date: 2024-09-16 Pat Name: GISLEA SHAVERELL Department: DEPID Room: Gender: Female Part Time Flexible Clerk: [facility] : 1975 Requested By: [facility] Order Number: [id number] Reading MD: Juan J Spence MD Measurements Intervals [place] Rate: 74 P: 50 [place]: 143 QRS: 28 QRSD: 108 T: 19 [...] to verify the correct patient, procedure, equipment, technical support internship and site/side marked as required Injury Location [...] Care Paper. Patient/family expressed understanding and agreed. us Leonides Stroud DPM PROCEDURE/MINOR SURGICAL ORDERABLES Final Result [facility] * Cast application (09/03/2024 10:30 AM [...] to verify the correct patient, procedure, equipment, technical support internship and site/side marked as required Injury Location [...] Stroud DPM PROCEDURE/MINOR SURGICAL ORDERABLES Final Result [facility] * XR FOOT LEFT AP LATERAL AND OBLIQUE (09/03/2024 10:26 AM EDT) Only the most recent of2 resultswithin the time period is included. Narrative Osvaldo Ren - 09/03/2024 10:26 AM EDT Please see physician's note from office encounter for x-ray imaging result Leonides Stroud DPM IMG DIAGNOSTIC IMAGING OR DERABLES Final Result * XR ANKLE LEFT AP LATERAL AND OBLIQUE (09/03/2024 10:26 AM EDT) Narrative Osvaldo Ren - 09/03/2024 10:26 AM EDT Please see physician's note from office encounter for x-ray imaging result Leoindes Stroud DPM IMG DIAGNOSTIC IMAGING OR DERABLES Final Result * SEP ELLIS FLU+SARS ANTIGEN (06/07/2024 11:33 AM EST) Only the most recent of2 resultswithin the time period is included. Influenza A Antigen Negative Negative 06/07/2024 11:50 AM EST [facility] Influenza B Antigen Negative Negative 06/07/2024 11:50 AM EST [facility] SARS Antigen Negative Negative 06/07/2024 11:50 AM EST [facility] Swab SPECIMEN FROM NASOPHARYNGEAL STRUCTURE / Unknown 06/07/2024 11:33 AM EST 06/07/2024 11:50 AM EST Arminda Wilson [employer] POINT OF CARE TEST ORDERABL ES Final Result [facility] [address] [place] [address] * URINALYSIS (05/15/2024 11:41 AM EST) Only the most recent of4 resultswithin the time period is included. UA Color Colorless 05/16/2024 9:07 PM EST [facility] UA Appear Clear Clear 05/16/2024 9:07 PM EST [facility] UA Glucose Negative Negative mg/dL 05/16/2024 9:07 PM EST [facility] UA Ketones Negative Negative mg/dL 05/16/2024 9:07 PM EST [facility] UA Blood Negative Negative 05/16/2024 9:07 PM EST [facility] UA pH 6.5 5.0 - 8.0 pH 05/16/2024 9:07 PM EST [facility] UA Protein Negative Negative mg/dL 05/16/2024 9:07 PM EST [facility] UA Urobilinogen Normal <=1 mg/dL 9:07 PM EST [facility] UA Bili Negative Negative 05/16/2024 9:07 PM EST [facility] UA Nitrite Negative Negative 05/16/2024 9:07 PM EST [facility] UA Leuk Est Negative Negative 05/16/2024 9:07 PM EST [facility] UA Spec Grav 1.012 1.001 - 1.035 no units 05/16/2024 9:07 PM EST [facility] Comment:Reference range dylan d for random specimens only. Urine URINE SPECIMEN OBTAINED VIA STRAIGHT CATHETER / Unknown 05/15/2024 11:41 AM EST 05/15/2024 11:41 AM EST Nicolette Phillips PA-C URINE ORDERABLES Yessenia l Result Performing Organization Address [facility] Co de Phone Number [address] , [place] [phone] * URINE CULTURE (NO STAIN) (05/15/2024 11:41 AM EST) Only the most recent of4 resultswithin the time period is included. Culture No growth at 30 hours. 05/18/2024 4:49 AM EST [facility] Urine URINE SPECIMEN OBTAINED VIA STRAIGHT CATHETER / Unknown 05/15/2024 11:41 AM EST 05/15/2024 11:41 AM EST Nicolette Phillips PA-C MICROBIOLOGY - GENERA L ORDERABLES Final Result Performing Organization Address [facility] Co de Phone Number [address] , [place] [phone] * (ABNORMAL) SEP URINALYSIS POC (05/14/2024 2:26 [...] POINT OF CARE TEST ORDERABLES Final Result [facility] [address] [place] [address] * CT ABDOMEN W CONTRAST (05/02/2024 2:39 [...] 2:39 PM CLINICAL HISTORY: R10.12-Left upper quadrant wexs-COI-40-CM. COMPARISON: 07/27/2015 PROCEDURE COMMENTS: Multidetector CT of [...] 2:39 PM CLINICAL HISTORY: R10.12-Left upper quadrant hhik-VNM-65-CM. COMPARISON: 07/27/2015 PROCEDURE COMMENTS: Multidetector CT of [...] IMG CT ORDERABLES Final Res ult * LIPASE LEVEL (04/26/2024 2:02 PM EST) Lipase Lvl 36 13 - 60 U/L 04/26/2024 8:05 PM EST [facility] Blood VENOUS BLOOD / Unknown Venipuncture / Unknown 04/26/2024 2:02 PM EST 04/26/2024 2:02 PM EST Arminda Wilson APRN CHEMISTRY ORDERABLES Final Result [facility], [address] , [place] [address] * (ABNORMAL) HEMOGLOBIN A1C (04/26/2024 2:02 PM EST) Only the most recent of4 resultswithin the time period is included. Hgb A1C 6.2(H) 4.2 - 5.6 % 04/26/2024 7:34 PM EST [facility] Est. Avg Glucose 131 mg/dL 04/26/2024 7:34 PM EST [facility] Blood VENOUS BLOOD / Unknown Venipuncture / Unknown 04/26/2024 2:02 PM EST 04/26/2024 2:02 PM EST Narrative [facility] - 04/26/2024 7:34 PM EST REFERENCE RANGE: Normal: 4.0-5.6% Pre-diabetes: 5.7-6.4% Provisional diagnosis of diabetes: >6.4% Hgb F>10% and anything which shortens red cell survival, such as hemolytic anemia, or unstable hemoglobin variants such as HbSS, HbSC, or HbCC, will lower the HbA1c value associated with a given level of glycemic control. [employer] CHEMISTRY ORDERABLES Final Result Performing Organization Address [facility] de Phone Number [employer] [address] , [place] [address] [facility] [address] [place] [address] * AMYLASE LEVEL (04/26/2024 2:02 PM EST) Pathologist [facility] Amylase Lvl 62 28 - 100 U/L 04/26/2024 8:05 PM EST [facility] Blood VENOUS BLOOD / Unknown Venipuncture / Unknown 04/26/2024 2:02 PM EST 04/26/2024 2:02 PM EST [employer] CHEMISTRY ORDERABLES Final Result Performing Organization Address [facility] Co de Phone Number [employer] [facility] [address] [address], [place] [address] * SCANNED RHYTHM STRIPS (04/05/2024 10:58 AM EST) Only the most recent of9 resultswithin the time period is included. Anatomical Region Laterality Modality Other 04/05/2024 10:5 8 AM EST us Unknown Provider IMG ECG ORDERABLES Final Result * INTRAOP AIRWAY PLACEMENT (04/04/2024 12:30 PM EST) Narrative [facility] - 04/04/2024 12:30 PM EST Saud [...] Insertion attempts: 1 us Wanda Miranda MD [place] ANESTHESIA Final R esult [facility] [address] [place] [address] * YOSB-UTP2-ZNP A/B (03/14/2024 2:35 PM EST) Only the most recent of2 resultswithin the time period is included. CORONAVIRUS [id number] Not Detected Not Detected 03/14/2024 3:05 PM EST [facility] Influenza A DNA Not Detected Not Detected 03/14/2024 3:05 PM EST [facility] Influenza B DNA Not Detected Not Detected 03/14/2024 3:05 PM EST [facility] Swab BOTH ANTERIOR NARES / Unknown 03/14/2024 2:35 PM EST 03/14/2024 2:44 PM EST Narrative [facility] - 03/14/2024 3:05 PM EST This [...] management decisions. Test is performed on the [employer] platform. us Ce Philippe DO MICROBIOLOGY - GENERAL ORDERAB LES Final Result [facility] [address] [place] [address] * (ABNORMAL) CBC (03/13/2024 1:44 PM EST) [...] 7:52 PM EST [facility] MCHC 30.7 30.7 - 35.5 g/dL 03/13/2024 7:52 PM EST [facility] RDW 14.9 <=14.9 % 03/13/2024 7:52 PM EST [facility] Platelet 256 155 - 369 x10(3)/mcL 03/13/2024 7:52 PM EST [facility] MPV 11.8 8.8 - 12.5 fL 03/13/2024 7:52 PM EST [facility] Blood VENOUS BLOOD / Unknown Venipuncture / Unknown 03/13/2024 1:44 PM EST 03/13/2024 1:44 PM EST Arminda Wilson APRN HEMATOLOGY ORDERABLES Final Result Performing Organization Address City/[facility] Co de Phone Number [facility] [address] [address] , [place] [address] * POCT EKG (03/13/2024 1:17 PM EST) 03/13/2024 1:17 PM EST Impressions [facility] - 03/13/2024 1:17 PM EST NSR, no ectopy Arminda Wilson APRN POINT OF CARE CARDIOLOGY Ed ited Result - Final Performing Organization Address [facility] de Phone Number [facility] * (ABNORMAL) YNES SCREEN BY IFA (12/12/2023 11:00 AM EDT) YNES Titer 1:320(A) <1:80 12/15/2023 1:08 PM EDT [facility] Comment:A titer of 1:80 is t he reference interval for detection in the indirect immunofluorescence assay, representing the titer with optimized sensitivity/specificity in healthy and affected populations. Note that titers < 1:80 do not necessarily rule out systemic autoimmune rheumatic diseases. YNES Pattern Homogeneous 12/15/2023 1:08 PM EDT [facility] Blood VENOUS BLOOD / Unknown Venipuncture / Unknown 12/12/2023 11:00 AM EDT 12/12/2023 11:00 AM EDT Abdulkadir Montoya MD IMMUNOLOGY ORDERABLES Final Re sult Performing Organization Address [facility] Co de Phone Number [facility] [address] [address] , [place] [address] * CYCLIC CITRULLINATED PEPTIDE ANTIBODY, IGG (12/12/2023 11:00 AM EDT) Only the most recent of2 resultswithin the time period is included. [facility] CCP Ab, IgG 1.1 <5.0 U/mL 12/12/2023 7:47 PM EDT [facility] Comment: Negative: < 5.0 U/mL Positive: > or = 5.0 U/mL Blood VENOUS BLOOD / Unknown Venipuncture / Unknown 12/12/2023 11:00 AM EDT 12/12/2023 11:00 AM EDT Abdulkadir Montoya MD IMMUNOLOGY ORDERABLES Final Re sult Performing Organization Address [facility] Co de Phone Number [facility] , [place], [place] [address] * RHEUMATOID FACTOR QUANTITATIVE (12/12/2023 11:00 AM EDT) [facility] RF Quant <10 <14 IU/mL 12/12/2023 5:2 9 PM EDT [facility] Blood VENOUS BLOOD / Unknown Venipuncture / Unknown 12/12/2023 11:00 AM EDT 12/12/2023 11:00 AM EDT Abdulkadir Montoya MD IMMUNOLOGY ORDERABLES Final Re sult Performing Organization Address [facility]/ZIP Co de Phone Number [address] , [place] [address] * (ABNORMAL) ANTINUCLEAR ANTIBODY SCREEN (12/12/2023 11:00 AM EDT) Only the most recent of2 resultswithin the time period is included. [facility] YNES, IgG Positive (A) Negative 12/15/2023 1:08 PM EDT [facility] [employer] [facility] Comment:YNES samples are scre ened using automated enzyme immunoassay. All samples that screen positive are then tested by the indirect immunofluorescence method. Blood VENOUS BLOOD / Unknown Venipuncture / Unknown 12/12/2023 11:00 AM EDT 12/12/2023 11:00 AM EDT Abdulkadir Montoya MD IMMUNOLOGY ORDERABLES Final Re sult [facility] [address] [place] [address] , [place] [address] * (ABNORMAL) POCT ELLIS SARS ANTIGEN (11/03/2023 11:14 AM EDT) Only the most recent of5 resultswithin the time period is included. SARS Antigen Positive(A ) Negative SE[facility] OFF[facility] Lot Number SEP OFFICE Expiration Date SEP OFFICE SeriAl # SEP OFFICE Control Line Yes YES/NO [facility]P OFFICE 11/03/2023 11:1 4 AM EDT Arminda Katie [employer]PER[employer] POINT OF CARE TEST ORDERABL ES Final Result Performing Organization Address City/[facility]/ZIP Co de Phone Number [facility] * POCT ELLIS INFLUENZA A/B (11/03/2023 10:01 AM EDT) Influenza A Antigen Negative Negative 11/03/2023 11:14 AM EDT [facility] Influenza B Antigen Negative Negative 11/03/2023 11:14 AM EDT [facility] Swab SPECIMEN FROM NASOPHARYNGEAL STRUCTURE / Unknown 11/03/2023 10:01 AM EDT 11/03/2023 11:14 AM EDT Arminda [place] SUPER[employer] POINT OF CARE TEST ORDERABL ES Final Result [facility] [address] [place] [address] * COLOGUARD (09/12/2023 10:45 PM EDT) COLOGUARD CLINICAL REPORT Negative Negative [facility] Comment: NEGATIVE TEST RESULT. A negative [...] Helton et al, N Engl J Med 2014;370(14):7620-4441) The normal value (reference range) for this assay is negative. COLOGUARD RE-SCREENING RECOMMENDATION: Periodic colorectal cancer screening is an important part of preventive healthcare for asymptomatic individuals at average risk for colorectal cancer. Following a negative Cologuard result, the [place] Cancer Society and U.S. Multi-Society Task Force screening guidelines recommend a Cologuard re-screening interval of 3 years. References: [place] Cancer Society Guideline for Colorectal Cancer Screening: https://www.cancer.org/cancer/khbqn-eisaat-gtdttw/hncimpdtc-ierawdonr-mfvmxtt/ac s-rec ommendations.html.; Julius DK, Sunil TIWARI, Floridalma VogelK, Colorectal Cancer Screening: Recommendations for Physicians and Patients from the U.S. Multi-Society Task Force on Colorectal Cancer Screening , Am J Gastroenterology 2017; 112:3432-7897. TEST DESCRIPTION: Composite algorithmic analysis of stool [...] screened with both Cologuard and colonoscopy. (Suleiman García al, N Engl J Med 2014;370(14):0607-8185.) Cologuard may produce a false negative or false positive result (no colorectal cancer or precancerous polyp present at colonoscopy follow up). A negative Cologuard test result does not guarantee the absence of CRC or advanced adenoma (pre-cancer). The current Cologuard screening interval is every 3 years. ([place] Cancer Society and U.S. Multi-Society Task Force). Cologuard performance data in a 10,000 patient pivotal study using colonoscopy as the reference method can be accessed at the following location: www.[employer]/results. Additional description of the Cologuard test process, warnings and precautions can be found at www.[employer] Denmarkrd.[employer]. Stool 09/12/2023 10:4 5 PM EDT 09/14/2023 1:35 PM EDT us Crista Briseno DO [employer] - ORDERABLES F inal Result Performing Organization Address City/State/[facility] Co de Phone Number [facility] [address] [place] [address], [facility] [employer] [address] [place] [address] * CT CHEST W CONTRAST (09/01/2023 3:40 [...] Isovue 370 IV contrast given as [facility]. Dose 1 : CT DLP Total : [...] contactthe office of the ordering clinician. us Daniel García MD IMG DIAGNOSTIC IMAGING ORDERABLE [...] CONTRAST, 05/02/2023 5:45 PM CLINICAL HISTORY: R05.3-Chronic fjbek-IEO-28-CM. COMPARISON: CT 04/03/2023 PROCEDURE COMMENTS: Multi-detector CT [...] CONTRAST, 05/02/2023 5:45 PM CLINICAL HISTORY: R05.3-Chronic llquc-MAK-94-CM. COMPARISON: CT 04/03/2023 PROCEDURE COMMENTS: Multi-detector CT [...] * NT PROBNP (04/26/2023 2:34 PM EST) Pathologist [facility] NT Pro-BNP 152 <=192 pg/mL 04/26/2023 8:09 PM EST [facility] Blood VENOUS BLOOD / Unknown Venipuncture / Unknown 04/26/2023 2:34 PM EST 04/26/2023 2:34 PM EST Narrative [facility] - 04/26/2023 8:09 PM EST An NT pro-BNP level less than 300 pg/mL in any patient, regardless of age, effectively rules out acute CHF with a 99% negative predictive value. Ingestion of rayshawn doses of biotin (>5 mg/day) taken within 8 hours of drawing blood sample can interfere with this immunoassay test. Nicolette Correa MD CHEMISTRY ORDERABLE S Final Result [facility] [address] [facility] [facility] , [place] [address] * CPAP TITRATION (04/20/2023 9:20 AM EST) Pathologist [facility] KARI SLEEP OVERALL RESULT [facility] DATE OF STUDY 04/20/2023 SE LAB Study Type Adult [facility] PATIENT WEIGHT 375.0 [facility] APNEA INDEX 0.9 [facility] Apnea Hypopnea Index 12.7 [facility] RDI Index 12.7 [facility] LAB Central Apnea Index 0.8 [facility] LAB REM AHI 16.7 SE LAB Min O2 Saturation 84 SE LAB RDI REM 16.7 [facility] LAB RDI nonREM 10.5 [facility] CPAP Device Name [facility] CPAP Pressure [facility] IPAP Pressure [facility] EPAP Pressure [facility] Auto Pressure Support [facility] Supplemental O2 [facility] Mask Type ResMed F20 [facility] Mask Size Small [facility] APAP Range [facility] Auto-IPAP Max [facility] Auto-IPAP Min [facility] Pressure Support [facility] PAP Compliance % [facility] Compliance Days [facility] Residual AHI [facility] PAP 90-95th Percentile [facility] 04/20/2023 9:20 AM EST Kristen Louie MD SLEEP CENTER ORDERABLES Final Result Performing Organization Address City/[facility]/ZIP Co de Phone Number [facility] [address] [place] [id number] * ACUTE HEPATITIS PANEL (03/22/2023 3:16 PM EST) Pathologist [facility] Hep Bs Ag Non-Reacti ve Non-Reacti ve 03/22/2023 9:50 PM EST [facility] Hep B Core IgM Non-Reacti ve Non-Reacti ve 03/22/2023 9:50 PM EST [facility] Hep A IgM Non-Reacti ve Non-Reacti ve 03/22/2023 9:50 PM EST [facility] Hep C Ab Non-Reacti ve Non-Reacti ve 03/22/2023 9:50 PM EST [facility] Blood VENOUS BLOOD / Unknown Venipuncture / Unknown 03/22/2023 3:16 PM EST 03/22/2023 3:16 PM EST us Arminda Wilson APRN CHEMISTRY ORDERABLES Final Result Performing Organization Address City/[facility]/ZIP Co de Phone Number [facility] [address] [facility], [place] [address] * EC ECHOCARDIOGRAM COMPLETE W DOPPLER AND COLOR FLOW MAPPING (02/14/2023 9:22 AM EDT) LV DIASTOLIC PLAX 4.504 cm PYRAMIS AORTIC [...] normal. * No significant valve disease. Arminda Wilson APRN IMG ECHO ORDERABLES Final R esult * PROTEIN/CREATININE RATIO URINE (02/09/2023 10:14 AM EDT) Urine Protein 11.4 mg/dL 02/09/2023 4:59 PM EDT [facility] Urine Creatinine 207.6 mg/dL 02/09/2023 4:59 PM EDT [facility] Ur Protein/Creat 0.05 <=0.14 mg/mg 02/09/2023 4:59 PM EDT [facility] Urine URINE SPECIMEN COLLECTION / Unknown 02/09/2023 10:14 AM EDT 02/09/2023 10:14 AM EDT Pat Castro MD URINE ORDERABLES Final Result [facility] [address] [facility] , [address] [place] [id number] * [id number] 1 ABS, IGG/IGM/IGA -REF LAB (02/09/2023 10:00 AM EDT) B2 GP 1 IgG <10 <=20 SGU 02/10/2023 10:47 PM EDT [facility] B2 GP 1 IgM <10 <=20 SMU 02/10/2023 10:47 PM EDT [facility] Comment: INTERPRETIVE INFORMATION: [id number] I, IgG and IgM Antibody The persistent [...] <10 <=20 ALEJO 02/10/2023 10:47 PM EDT [facility] Comment: Performed By: [facility] [address] [place] [address] Industrial Registered Nurse: Jair Araiza MD, PhD CLIA Number: [id number] Blood VENOUS BLOOD / Unknown Venipuncture / Unknown 02/09/2023 10:00 AM EDT 02/09/2023 10:00 AM EDT us Pat Castro MD CHEMISTRY ORDERABLES Final Resul t [facility] [address] [place] [address] * CARDIOLIPIN ANTIBODY, IGA-REF LAB (02/09/2023 10:00 AM EDT) Cardiolipin IgA Antibody <10 <=11 APL 02/11/2023 9:35 AM EDT [facility] Comment: INTERPRETIVE INFORMATION: Cardiolipin Antibodies, IgA <=11 APL: Negative 12-19 APL: Indeterminate 20-80 APL: Low to Moderately Positive 81 APL or above: High Positive Performed By: [facility] [address] [place] [address] Industrial Registered Nurse: Jair Araiza MD, PhD CLIA Number: [id number] Blood VENOUS BLOOD / Unknown Venipuncture / Unknown 02/09/2023 10:00 AM EDT 02/09/2023 10:00 AM EDT us Pat Castro MD IMMUNOLOGY ORDERABLES Final Resu lt Performing Organization Address [facility]/ZIP Co de Phone Number [facility] [address] [place] [address] * SSB (LA) IGG (02/09/2023 10:00 AM EDT) SSB (LA) IgG (AAU/mL) 17 <=180 02/10/2023 10:53 AM EDT [facility] Blood VENOUS BLOOD / Unknown Venipuncture / Unknown 02/09/2023 10:00 AM EDT 02/09/2023 10:00 AM EDT Narrative [facility] - 02/10/2023 10:53 AM EDT Interpretive Information: [...] should not be considered equivalent. us Pat Csatro MD IMMUNOLOGY ORDERABLES Final Resu lt Performing Organization Address City/[facility]/ZIP Co de Phone Number [facility] [address] [facility] , [place], [place] [id number] * SSA (RO) IGG (02/09/2023 10:00 AM EDT) [facility] SSA (RO) IgG (AAU/mL) 47 <=180 AAU/mL 02/10/2023 10:52 AM EDT [facility] Blood VENOUS BLOOD / Unknown Venipuncture / Unknown 02/09/2023 10:00 AM EDT 02/09/2023 10:00 AM EDT Narrative [facility] - 02/10/2023 10:52 AM EDT Interpretive Information: [...] Castro MD IMMUNOLOGY ORDERABLES Final Resu lt [facility] [address] , [place], [place] [id number] * SYPHILIS SCREEN WITH REFLEX RPR QUANT (02/09/2023 10:00 AM EDT) [facility] Trep Ab Index 0.06 <=0.99 Index Value 02/09/2023 5:07 PM EDT [facility] Comment: < 1.00 - Non-Reactive >=1.00 - Reactive NOTE: All reactive results will be reflexed to Quantitative Non-Treponemal(RPR)test. Blood VENOUS BLOOD / Unknown Venipuncture / Unknown 02/09/2023 10:00 AM EDT 02/09/2023 10:00 AM EDT us Pat Castro MD CHEMISTRY ORDERABLES Final Resul t Performing Organization Address [facility] Co de Phone Number [facility] [address] [facility] , [place] [address] * (ABNORMAL) THYROID PEROXIDASE (TPO) ANTIBODY (02/09/2023 10:00 AM EDT) TPO Ab 515.37(H) <=5.59 IU/mL 02/09/2023 5:14 PM EDT [facility] Blood VENOUS BLOOD / Unknown Venipuncture / Unknown 02/09/2023 10:00 AM EDT 02/09/2023 10:00 AM EDT us Pat Castro MD IMMUNOLOGY ORDERABLES Final Resu lt Performing Organization Address [facility] de Phone Number [facility] [address] [facility] , [place] [address] * (ABNORMAL) TSH REFLEX (02/09/2023 10:00 AM EDT) Only the most recent of5 resultswithin the time period is included. [facility] TSH Reflex 0.235(L) 0.270 - 4.200 mcIU/mL 02/09/2023 3:11 PM EDT [facility] Blood VENOUS BLOOD / Unknown Venipuncture / Unknown 02/09/2023 10:00 AM EDT 02/09/2023 10:00 AM EDT Narrative [facility] - 02/09/2023 3:11 PM EDT Ingestion of rayshawn doses of biotin (>5 mg/day) taken within 8 hours of drawing blood sample can interfere with this immunoassay test. us Pat Castro MD CHEMISTRY ORDERABLES Final Resul t Performing Organization Address [facility] Co de Phone Number [facility] [address] [facility] , [place] [address] * GARZA ANTIBODY, IGG -REF LAB (02/09/2023 10:00 AM EDT) Pathologist [facility] Garza Ab IgG 3 0 - 40 AU/mL 02/10/2023 6:13 PM EDT [facility] Comment: INTERPRETIVE INFORMATION: Garza (CLIFF) Antibody, IgG 29 AU/mL or Less ............. Negative 30 - 40 AU/mL ................ Equivocal 41 AU/mL or Greater .......... Positive Garza antibody is highly specific (greater than 90 percent) for systemic lupus erythematosus (SLE) but only occurs in 30-35 percent of SLE cases. The presence of antibodies to Garza has variable associations with SLE clinical manifestations. Performed By: [facility] [address] [place] [address] Industrial Registered Nurse: Jair Araiza MD, PhD CLIA Number: [id number] Blood VENOUS BLOOD / Unknown Venipuncture / Unknown 02/09/2023 10:00 AM EDT 02/09/2023 10:00 AM EDT Pat Castro MD IMMUNOLOGY ORDERABLES Final Resu lt [facility] [address] [place] [address] * COMPLEMENT PANEL (02/09/2023 10:00 AM EDT) [facility] C3 Complement 175 90 - 180 mg/dL 02/09/2023 3:52 PM EDT [facility] C4 Complement 20 10 - 40 mg/dL 02/09/2023 3:52 PM EDT [facility] Blood VENOUS BLOOD / Unknown Venipuncture / Unknown 02/09/2023 10:00 AM EDT 02/09/2023 10:00 AM EDT Pat Castro MD IMMUNOLOGY ORDERABLES Final Resu lt [facility] [address] [place] [address] , [place] [address] * RIBONUCLEIC PROTEIN ANTIBODY, IGG -REF LAB (02/09/2023 10:00 AM EDT) [facility] Garza/SPRAYER INSECTICIDE Ab, IgG 3 0 - 19 Units 02/11/2023 2:08 PM EDT [facility] Comment: INTERPRETIVE INFORMATION: Garza/SPRAYER INSECTICIDE (CLIFF) Antibody, IgG 19 Units or Less ............. Negative 20 to 39 Units ............... Weak Positive 40 to 80 Units ............... Moderate Positive 81 Units or greater .......... Strong Positive Garza/SPRAYER INSECTICIDE antibodies are frequently seen in patients with mixed connective tissue disease (MCTD) and are also associated with other systemic autoimmune rheumatic diseases (SARDs) such as systemic lupus erythematosus (SLE), systemic sclerosis, and myositis. Antibodies targeting the Garza/SPRAYER INSECTICIDE antigenic complex also recognize Garza antigens, therefore, the Garza antibody response must be considered when interpreting these results. Performed By: [facility] [address] [place] [address] Industrial Registered Nurse: Jair Araiza MD, PhD CLIA Number: [id number] Blood VENOUS BLOOD / Unknown Venipuncture / Unknown 02/09/2023 10:00 AM EDT 02/09/2023 10:00 AM EDT us Pat Castro MD IMMUNOLOGY ORDERABLES Final Resu lt [facility] [address] [place], [place] [id number] * DSDNA AB REFLEX TO TITER -REF LAB (02/09/2023 10:00 AM EDT) Pathologist [facility] DNA Ab DS 7 0 - 24 IU 02/11/2023 11:26 PM EDT [facility] Comment: INTERPRETIVE INFORMATION: Double-Stranded DNA (dsDNA) Ab IgG KORTNEY 24 IU or less........Negative 25-30 IU.............Borderline Positive 30-60 IU.............Low Positive 60-200 IU............Positive 201 IU or greater....Strong Positive Positivity for anti-double stranded DNA (anti-dsDNA) IgG antibody is a diagnostic criterion of systemic lupus erythematosus (SLE). Specimens are initially screened by enzyme-linked immunosorbent assay (KORTNEY). If ordered as reflex ([id number]), positive KORTNEY results (>24 IU) will be [...] recommendations for testing may be found at [email or web address]. Performed By: [facility] [address] [place] [address] Industrial Registered Nurse: Jair Araiza MD, PhD CLIA Number: [id number] Blood VENOUS BLOOD / Unknown Venipuncture / Unknown 02/09/2023 10:00 AM EDT 02/09/2023 10:00 AM EDT us Pat Castro MD IMMUNOLOGY ORDERABLES Final Resu lt [facility] [address] [place] [address] * (ABNORMAL) LUPUS ANTICOAGULANT PANEL -REF LAB (02/09/2023 10:00 AM EDT) PT D 13.0 12.0 - 15.5 sec 02/10/2023 10:14 PM EDT [employer] PTT D 39 32 - 48 sec 02/10/2023 10:14 PM EDT [employer] Thrombin Time Not Applicable 14.7 - 19.5 sec 02/10/2023 10:14 PM EDT [employer] Reptilase Pat Not Applicable <=21.9 sec 02/10/2023 10:14 PM EDT [employer] PTT Hep Neut Not Applicable 32 - 48 sec 02/10/2023 10:14 PM EDT [employer] PTT Lexi Rflx Not Applicable 32 - 48 sec 02/10/2023 10:14 PM EDT [employer] Plt Neut Not Applicable Negative 02/10/2023 10:14 PM EDT [employer] DRVVT 27(L) 33 - 44 sec 02/10/2023 10:14 PM EDT [employer] DRV Lexi Not Applicable 33 - 44 sec 02/10/2023 10:14 PM EDT [employer] DRVVT Confirm Not Applicable Negative ratio 02/10/2023 10:14 PM EDT [employer] Hexag Phos Rflx Not Applicable Negative 02/10/2023 10:14 PM EDT [employer] [facility] Lupus Anticoagulant Interp See Note 02/10/2023 10:14 PM EDT [employer] Comment: Lupus anticoagulant not detected. The [...] has not already been performed. Performed By: [facility] [address] [place] [address] Industrial Registered Nurse: Jair Araiza MD, PhD CLIA Number: [id number] Blood VENOUS BLOOD / Unknown Venipuncture / Unknown 02/09/2023 10:00 AM EDT 02/09/2023 10:00 AM EDT us Pat Castro MD CHEMISTRY ORDERABLES Final Resul t [facility] [address] [place], [place] [id number] * CARDIOLIPIN ANTIBODIES IGG/ IGM-REF LAB (02/09/2023 10:00 AM EDT) Cardiolipin IgG Antibody <10 <=14 GPL 02/11/2023 9:35 AM EDT [facility] Comment: INTERPRETIVE INFORMATION: Anti-Cardiolipin IgG Ab <=14 [...] 10 <=12 MPL 02/11/2023 9:35 AM EDT [facility] [employer] Comment: INTERPRETIVE INFORMATION: Anti-Cardiolipin IgM <=12 MPL: [...] other criteria phospholipid antibody tests. Performed By: [facility] [address] [place] [address] Industrial Registered Nurse: Jair Araiza MD, PhD CLIA Number: [id number] Blood VENOUS BLOOD / Unknown Venipuncture / Unknown 02/09/2023 10:00 AM EDT 02/09/2023 10:00 AM EDT Pat Castro MD IMMUNOLOGY ORDERABLES Final Resu lt [facility] [address] [place] [address] * POLYSOMNOGRAPHY 4 OR MORE PARAMETERS (01/24/2023 9:25 AM EDT) [facility] Macey [facility] OVERALL RESULT [facility] DATE OF STUDY 01/24/2023 [facility] Study Type Adult [facility] PATIENT WEIGHT 375.0 SE LAB APNEA INDEX 0.2 SE LAB Apnea Hypopnea Index 15.6 SE LAB RDI Index 15.6 [facility] Central Apnea Index 0.0 [facility] REM AHI 38.3 [facility] Min O2 Saturation 70 [facility] RDI REM 38.3 [facility] RDI nonREM 12.1 [facility] CPAP Device Name [facility] CPAP Pressure [facility] IPAP Pressure [facility] EPAP Pressure [facility] Auto Pressure Support [facility] Supplemental O2 [facility] Mask Type [facility] Mask Size [facility] APAP Range [facility] Auto-IPAP Max [facility] Auto-IPAP Min [facility] Pressure Support [facility] PAP Compliance % [facility] Compliance Days [facility] Residual AHI [facility] PAP 90-95th Percentile [facility] 01/24/2023 9:25 AM EDT us Kristen Louie MD SLEEP CENTER ORDERABLES Final Result [facility] [address] [place] [address] * CT SOFT TISSUE NECK W CONTRAST [...] CLINICAL HISTORY: 47 years-old with R13.13-Dysphagia, pharyngeal raaar-PYI-[id number]-CM COMPARISON: MRI cervical spine 03/01/2016. PROCEDURE COMMENTS: [...] AM CLINICAL HISTORY: 47 years-old with R13.13-Dysphagia, aobivugrzoppehq-KNU-54-CM COMPARISON: MRI cervical spine 03/01/2016. PROCEDURE COMMENTS: [...] please contactthe office of the ordering clinician. [facility] Katie IZAGUIRREN IMG CT ORDERABLES Final Res ult * POCT GLYCATED HEMOGLOBIN, TOTAL (10/28/2022 11:55 AM EDT) Only the most recent of2 resultswithin the time period is included. Hemoglobin A1C 5.9 4 - 6 % SEP OFFICE Lot Number SEP OFFICE Expiration Date SEP OFFICE SeriAl # SEP OFFICE 10/28/2022 11:5 5 AM EDT [facility] [place] APRN POINT OF CARE TEST ORDERABL ES Final Result SEP OFFICE * POCT URINALYSIS AUTOMATED (10/28/2022 11:48 AM EDT) Color, UA yellow CLEAR,YELL OW,ORANGE, RUST SEP OFFICE Clarity, UA clear CLEAR,CLOU DY SEP OFFICE Glucose, UA neg G/DL% SEP OFFICE Bilirubin, UA neg POS/NEG SEP OFFICE Ketones, UA neg POS/NEG SEP photogeologist Grav, UA 1.025 1.001 - 1.035 G/DL [...] 10/28/2022 11:4 8 AM EDT Arminda Katie SUPERVISOR [employer] POINT OF CARE TEST ORDERABL ES Final Result SEP OFFICE * MISCELLANEOUS LAB (09/22/2022 3:06 PM EDT) [facility] COMMENT See Scanned Image 10/02/2022 7:41 AM EDT [facility] Blood VENOUS BLOOD / Unknown Venipuncture / Unknown 09/22/2022 3:06 PM EDT 09/27/2022 5:03 PM EDT Arminda [place] [employer] HEMATOLOGY ORDERABLES Final Result Performing Organization Address City/[facility]/ZIP Co de Phone Number EXTERNAL LAB See Scanned Report [facility] [address] [place] [address] * VITAMIN B12/ FOLIC ACID (09/22/2022 3:06 PM EDT) Only the most recent of3 resultswithin the time period is included. [facility] Vitamin B12 377 232 - 1,245 pg/mL 09/22/2022 8:11 PM EDT [facility] Folate 8.29 >=4.80 ng/mL 09/22/2022 8:11 PM EDT [facility] Blood VENOUS BLOOD / Unknown Venipuncture / Unknown 09/22/2022 3:06 PM EDT 09/22/2022 3:06 PM EDT Narrative [facility] - 09/22/2022 8:11 PM EDT Ingestion of rayshawn doses of biotin (>5 mg/day) taken within 8 hours of drawing blood sample can interfere with this immunoassay test. Arminda Wilson [employer] CHEMISTRY ORDERABLES Final Result Performing Organization Address [facility] Co de Phone Number [facility] [address] [facility] , [address] [place], [place] [id number] * XR KNEE LEFT AP LATERAL AND SUNRISE STANDING (08/19/2022 2:43 PM EDT) Narrative Osvaldo Ren - 08/19/2022 2:43 PM EDT Please see physician's note from office encounter for x-ray imaging result Result [facility] Kendall Garcia MD IMG DIAGNOSTIC IMAGING ORDERABL ES Final Result * [place] ARTHROCENTESIS ASPIR&/INJ MAJOR JT/BURSA W/O US (08/19/2022 2:15 PM EDT) Narrative [facility] - 08/19/2022 2:15 PM EDT Chio Duncan, [facility] 08/19/2022 4:57 PM Large Joint Injection/Arthrocentesis: L [...] and draped in the usual sterile fashion. Result [facility] Kendall Garcia MD PROCEDURE/MINOR SURGICAL ORDERA BLES Final Result Performing Organization Address [facility] Co de Phone Number [facility] * (ABNORMAL) COMPLIANCE PANEL, URINE (06/14/2022 2:28 PM EST) Only the most recent of3 resultswithin the time period is included. Medications Expected Gabapentin 05/26 3:38 PM EST [facility] Barbiturates Absent Cutoff 200 ng/mL 06/15/2022 3:38 PM EST [facility] THC <10 Cutoff 10 ng/mL ng/mL 06/15/2022 3:38 PM EST [facility] Comment:9-vckrtks-eoleyqtkba cannabinol; does not distinguish between prescribed and [...] PM EST [facility] Comment:e.g., Klonopin, Clon opin 7-Aminoclonazepam <25 Cutoff 25 ng/mL ng/mL 06/15/2022 3:38 PM EST [facility] Comment:Metabolite of Clonaz epam Diazepam <10 Cutoff 10 ng/mL ng/mL 06/15/2022 3:38 PM EST [facility] Comment:e.g, Valium, Diastat Nordiazepam <25 Cutoff 25 ng/mL ng/mL 06/15/2022 3:38 PM EST [facility] Comment:Metabolite of Chlord iazepoxide(Librium), Clorazepate(Tranxene), Diazepam, Halazepam, (Alapryl), Prazepam(Centrax) Flunitrazepam <50 Cutoff 50 ng/mL ng/mL 06/15/2022 3:38 PM EST [facility] Comment:e.g.,Rohypnol, Narco zep 7-Aminoflunitrazepam <50 Cutoff 50 ng/mL ng/mL 06/15/2022 3:38 PM EST [facility] Comment:Metabolite of Flunit razepam Flurazepam <50 Cutoff 50 ng/mL ng/mL 06/15/2022 3:38 PM EST [facility] Comment:e.g., Dalmane Hydroxyethylflurazepam <50 Cutoff 50 ng/mL ng/mL 06/15/2022 3:38 PM EST [facility] Comment:Metabolite of Fluraz epam Lorazepam <50 Cutoff 50 ng/mL ng/mL 06/15/2022 3:38 PM EST [facility] Comment:e.g., Ativan Lorazepam Glucuronide <50 Cutoff 50 ng/mL ng/mL 06/15/2022 3:38 PM EST [facility] Comment:Metabolite of Loraze jess Midazolam <50 Cutoff 50 ng/mL ng/mL 06/15/2022 3:38 PM EST [facility] Comment:e.g., Versed alpha-hydroxymidazolam <50 Cutoff 50 ng/mL [...] 06/15/2022 3:38 PM EST [facility] Comment:Metabolite of Fentan yl 6-Monoacetylmorphine (6MAM) <10 Cutoff 10 ng/mL ng/mL 06/15/2022 3:38 PM EST [facility] Comment:Metabolite of Heroin ; Morphine is expected Methadone <50 Cutoff 50 ng/mL ng/mL 06/15/2022 3:38 PM EST [facility] Comment:e.g., Dolophine, Met hadose, Amidone EDDP <50 Cutoff 50 ng/mL ng/mL 06/15/2022 3:38 PM EST [facility] Comment:Methadone Metabolite Carisoprodol <100 Cutoff 100 ng/mL ng/mL 06/15/2022 3:38 PM EST [facility] Comment:e.g., Soma Meprobamate <100 Cutoff 100 ng/mL ng/mL 06/15/2022 3:38 PM EST [facility] Comment:e.g., [place], Equa nil, Micrainin, Equagesic; Metabolite of Carisoprodol Codeine <50 Cutoff 50 ng/mL ng/mL 06/15/2022 3:38 PM EST [facility] Comment:e.g., Acetaminophen w/Codeine, Tylenol3 w/ Codeine Codeine Glucuronide <50 Cutoff 50 ng/mL ng/mL 06/15/2022 3:38 PM EST [facility] Comment:Metabolite of Codein e Meperidine <50 Cutoff 50 ng/mL ng/mL 06/15/2022 3:38 PM EST [facility] Comment:e.g., Demerol, Pethi dine Normeperidine <50 Cutoff 50 ng/mL ng/mL 06/15/2022 3:38 PM EST [facility] Comment:Metabolite of Meperi dine Morphine <50 Cutoff 50 ng/mL ng/mL 06/15/2022 3:38 PM EST [facility] Comment:e.g., MS Contin, Tania anol; Metabolite of Codeine and Heroin; may reflect poppy seed ingestion Zsflqyol-6-Rwjklzkqkap <25 Cutoff 25 ng/mL ng/mL 06/15/2022 3:38 PM EST [facility] Comment:Metabolite of Morphi ne. Giabhste-8-Xqwtfeoabos <25 Cutoff 25 ng/mL ng/mL 06/15/2022 3:38 PM EST [facility] Comment:Metabolite of Morphi ne. Naloxone <25 Cutoff 25 ng/mL ng/mL 06/15/2022 3:38 PM EST [facility] Comment:e.g., Narcan, Evzio Hydrocodone <50 Cutoff 50 ng/mL ng/mL 06/15/2022 3:38 PM EST [facility] Comment:e.g., Lorcet, Lortab , Vicodin, Leon; Minor Metabolite of Codeine Dihydrocodeine <50 Cutoff 50 ng/mL ng/mL 06/15/2022 3:38 PM EST [facility] Comment:e.g., Didrate, Parzo ne, Parlor, Synalgos; Metabolite of Hydrocodone Norhydrocodone <50 Cutoff 50 ng/mL ng/mL 06/15/2022 3:38 PM EST [facility] Comment:Metabolite of Hydroc odone Hydromorphone <50 Cutoff 50 ng/mL ng/mL 06/15/2022 3:38 PM EST [facility] Comment:e.g., Dilaudid; also Metabolite of Hydrocodone and Minor Metabolite of Morphine Hydromorphone Glucuronide <50 Cutoff 50 ng/mL ng/mL 06/15/2022 3:38 PM EST [facility] Comment:Metabolite of Hydrom orphone Oxycodone <50 Cutoff 50 ng/mL ng/mL 06/15/2022 3:38 PM EST [facility] Comment:e.g., Oxycontin, Per cocet, Endocet, Percodan, Roxicet Noroxycodone <50 Cutoff 50 ng/mL ng/mL 06/15/2022 3:38 PM EST [facility] Comment:Metabolite of Oxycod one Oxymorphone <50 Cutoff 50 ng/mL ng/mL 06/15/2022 3:38 PM EST [facility] Comment:e.g., Opana; Metabol ite of Oxycodone Oxymorphone Glucuronide <50 Cutoff 50 ng/mL ng/mL 06/15/2022 3:38 PM EST [facility], [facility] Comment:Metabolite of Oxycod one Noroxymorphone <50 Cutoff 50 ng/mL ng/mL 06/15/2022 3:38 PM EST [facility], [facility] Comment:Metabolite of Oxycod one, and Oxymorphone, Noroxycodone Metabolite Tramadol <50 Cutoff 50 ng/mL ng/mL 06/15/2022 3:38 PM EST [facility] Comment:e.g., Ultram, ConZip L-Pxzrikxmt-jec-Tramadol <50 Cutoff 50 ng/mL ng/mL 06/15/2022 3:38 PM EST [facility] Comment:Metabolite of Tramad ol Tapentadol <50 Cutoff 50 ng/mL ng/mL 06/15/2022 3:38 PM EST [facility] Comment:Nucynta Tapentadol-Glucuronide <50 Cutoff 50 ng/mL ng/mL 06/15/2022 3:38 PM EST [facility] Comment:Metabolite of Tapent adol Urine Creatinine 152.3 mg/dL 06/15/19 3:38 PM EST [facility] Comment: Greater than 20: Consistent with valid sample Greater than 2 but less than 20: Possible dilution Less than 2: Questionable valid sample Urine URINE SPECIMEN COLLECTION / Unknown 06/14/2022 2:28 PM EST 06/14/2022 2:28 PM EST Narrative [facility] - 06/15/2022 3:38 PM EST The absence of expected drug(s), and/or drug metabolite(s), may indicate non-compliance, diluted or adulterated urine, poor drug absorption, concentration of drug below the cut-off, timing of specimen collection relative to administration of drug, or limitations of testing. If results do not fit clinical expectations, please reach out to the Toxicology department at [phone]. Specimens are held for 7 days. This test was developed, and its performance characteristics determined by [facility] ([facility] It has not been cleared or approved by the FDA. This test is used for clinical purposes. It should not be regarded as investigational or for research. [facility] is certified under the Clinical Laboratory Improvement Amendments (CLIA) as qualified to perform high complexity clinical laboratory testing. Arminda Wilson SUPERVISOR SUNGLASSES URINE ORDERABLES Final Resu lt Performing Organization Address City/[facility]/ZIP Co de Phone Number [facility] [employer] [facility] [address] , [place] [address] * (ABNORMAL) LIPID PANEL REFLEX (06/14/2022 2:23 PM EST) Cholesterol 136 <200 mg/dL 06/14/2022 8:51 PM EST [facility], [facility] Comment: < 200 Desirable 200 - 239 Borderline High >= 240 High Triglyceride 193(H) <150 mg/dL 06/14/2022 8:51 PM EST [facility], [facility] Comment: < 150 Normal 150 - 199 Borderline High 200 - 499 High >= 500 Very High HDL 33(L) >=40 mg/dL 06/14/2022 8:51 PM EST [facility] Comment: > 60 Optimal 40 - 60 Acceptable < 40 Low LDL Calculated 71 <100 mg/dL 06/14/2022 8:51 PM EST [facility] [facility] Non-HDL-C Calculated 103 <=129 mg/dL 06/14/2022 8:51 PM EST [facility], [facility] Comment: <130 Desirable 130-159 Above Desirable 160-189 Borderline High 190-219 High >= 220 Very High Fasting Specimen? No None 023 8:51 PM EST [facility] Blood VENOUS BLOOD / Unknown Venipuncture / Unknown 06/14/2022 2:23 PM EST 06/14/2022 2:23 PM EST Arminda Wilson APRN CHEMISTRY ORDERABLES Final Result Performing Organization Address City/[facility]/ZIP Co de Phone Number [facility], [facility] [address] [place] [address] [place] [address] [facility] [address] [place] [address] * (ABNORMAL) LIPID SCREEN (07/16/2021 1:40 PM EDT) Only the most recent of3 resultswithin the time period is included. Cholesterol 142 <200 mg/dL 07/16/2021 7:41 PM EDT [facility] Comment: < 200 Desirable 200 - 239 Borderline High >= 240 High Triglyceride 139 <150 mg/dL 07/16/2021 7:41 PM EDT [facility], [facility] Comment: < 150 Normal 150 - 199 Borderline High 200 - 499 High >= 500 Very High HDL 39(L) >=40 mg/dL 07/16/2021 7:41 PM EDT [facility] Comment: > 60 Optimal 40 - 60 Acceptable < 40 Low LDL Calculated 78 <100 mg/dL 07/16/2021 7:41 PM EDT [facility] Comment: < 100 Optimal 100 - 129 Near or above optimal 130 - 159 Borderline High 160 - 189 High >= 190 Very High Non-HDL-C Calculated 103 <=129 mg/dL 07/16/2021 7:41 PM EDT [facility] Comment: <130 Desirable 130-159 Above Desirable 160-189 Borderline High 190-219 High >= 220 Very High Fasting Specimen? Yes None 022 7:41 PM EDT [facility] Blood VENOUS BLOOD / Unknown Venipuncture / Unknown 07/16/2021 1:40 PM EDT 07/16/2021 1:40 PM EDT Arminda Wilson SUPERVISOR SUNGLASSES CHEMISTRY ORDERABLES Final Result [facility] [facility] [address] [facility] [facility] [facility], [address] [place] [id number] [facility] [address] [place], [place] [id number] * CORONAVIRUS 2019 (04/06/2021 10:53 AM EST) Only the most recent of3 resultswithin the time period is included. [facility] CORONAVIRUS [id number] Not Detected Not Detected 04/07/2021 12:48 AM EST [facility] [employer] [facility] Comment: Caution should be exercised when interpreting [...] of COVID-19. Test is performed on the [employer] platform under the FDA's Emergency Use Authorization (EUA). [employer] Provider Fact Sheet: https://www.fda.gov/media/132532/download [employer] Patient Fact Sheet: https://www.fda.gov/media/395111/download Performed at [facility] [address] [address] CLIA [id number] Swab BOTH ANTERIOR NARES / Unknown 04/06/2021 10:53 AM EST 04/06/2021 10:53 AM EST us Arminda Wilson SUPERVISOR SUNGLASSES MICROBIOLOGY - GENERAL ORDE NICOLASA Final Result [facility] , [place] [address] * (ABNORMAL) WOUND CULTURE (STAIN INCLUDED) (09/08/2020 1:21 PM EDT) Only the most recent of7 resultswithin the time period is included. Culture Positive Growth(A) 2020 7:36 AM EDT [facility] Culture Sparse growth of Staphylococcus aureus SUSCEPTIBI LITY RESULT 09/11/2020 7:36 AM EDT [facility] [facility] Stain Moderate RBCs 09/11/2020 7:36 AM EDT [facility], [facility] Stain Rare WBCs 09/11/2020 7:36 AM EDT [facility], [facility] Stain No organisms seen 021 7:36 AM EDT [facility] [facility] Swab PELVIC REGION / Unknown 09/08/2020 1:21 [...] MICROBIOLOGY - GENERAL ORDERABLE S Final Result [facility] [address], [place] [address] * PATHOLOGY TISSUE REQUEST (08/11/2020 9:57 AM EDT) Only the most recent of2 resultswithin the time period is included. CASE REPORT Surgical Pathology Case: [id number] Authorizing Provider: Beverly Hernandez DO Collected: 08/11/2020 0957 Ordering Location: [facility] SUR[facility]ERY Received: 08/11/2020 1312 Pathologist: Teo Resendez MD Specimen: Uterus, Left Ovary, cervix and uterus 08/13/2020 7:40 PM EDT [facility] FINAL DIAGNOSIS Uterus and left ovary, hysterectomy and left oophorectomy: - Focal inactive endometrium. - Adenomyosis. - Leiomyoma (1.0 cm in greatest dimension) - Cervix with nabothian cyst - Left ovary with benign cyst 08/13/2020 7:40 PM EDT [facility] at 1940 EDT MICROSCOPIC DESCRIPTION Microscopic examination is performed and the findings corroborate the diagnosis. 08/13/2020 7:40 PM EDT [facility] EMBEDDED IMAGES 08/13/2020 7:40 PM EDT [facility] GROSS DESCRIPTION Part A) Received in [...] The ovary is serially sectioned to show agry cut surfaces. The cystic structure is filled with thin, clear fluid and has a thin, smooth and glistening lining with no distinct lesions identified. Machine Programmer sections are submitted as follows: A1: Anterior cervix A2: Posterior cervix A3: Anterior endomyometrium with cavitation and myometrial nodule A4: Posterior endomyometrium A5: Ovary with cystic structure. /MK 08/13/2020 7:40 PM EDT [facility] Tissue UTERINE STRUCTURE / Unknown 08/11/2020 9:57 AM EDT 08/11/2020 1:12 PM EDT Bevelry Hernandez DO PATHOLOGY ORDERABLES Fi nal Result Performing Organization Address [facility] Co de Phone Number [facility] [address] [place] [id number] [facility] [address] [place] [address] * INTRAOP AIRWAY PLACEMENT (08/11/2020 8:21 AM EDT) Narrative [facility] - 08/11/2020 8:21 AM EDT Beverly [...] Atraumatic and Unchanged Insertion attempts: 1 Title: BUSINESS ANALYTICS ANALYST Maximino Lehman MD [place] ANESTHESIA Final Res ult Performing Organization Address [facility] Co de Phone Number [facility] [address] [place] [id number] * HUMAN CHORIONIC GONADOTROPIN QUANTITATIVE (08/05/2020 11:20 AM EDT) Only the most recent of2 resultswithin the time period is included. Hcg Quant 3 <5 mIU/mL 08/05/2020 11:41 AM EDT [facility] Blood VENOUS BLOOD / Unknown Venipuncture / Unknown 08/05/2020 11:20 AM EDT 08/05/2020 11:23 AM EDT Narrative [facility] - 08/05/2020 11:41 AM EDT Ingestion [...] 2-3 days for the first six weeks. Lesvia Savage NP CHEMISTRY ORDERABLES Final Result Performing Organization Address City/[facility] Co de Phone Number [facility] [address] [place] [address] * BB HISTORY CHECK (08/05/2020 11:05 AM EDT) Only the most recent of2 resultswithin the time period is included. BB HISTORY CHECK (1) Previous History OK 08/05/2020 12:00 PM EDT [facility] Blood VENOUS BLOOD / Unknown Venipuncture / Unknown 08/05/2020 11:05 AM EDT 08/05/2020 11:23 AM EDT Lesvia Savage NP BLOOD BANK ORDERABLES Final Result Performing Organization Address City/[facility] Co de Phone Number [facility] [address] [place] [address] * SURGERY DATE (08/05/2020 11:05 AM EDT) Surgery Date (1) Complete 08/05/2020 12:01 PM EDT [facility] Blood VENOUS BLOOD / Unknown Venipuncture / Unknown 08/05/2020 11:05 AM EDT 08/05/2020 11:23 AM EDT Lesvia Savage NP BLOOD BANK ORDERABLES Final Result Performing Organization Address [facility] Co de Phone Number [facility] [address] [place] [address] * ABORH (08/05/2020 11:05 AM EDT) Only the most recent of2 resultswithin the time period is included. Pathologist [facility] ABORH Int O POS 08/05/2020 12:35 PM EDT [facility] Blood VENOUS BLOOD / Unknown Venipuncture / Unknown 08/05/2020 11:05 AM EDT 08/05/2020 11:23 AM EDT us Lesvia Savage NP BLOOD BANK ORDERABLES Final Result Performing Organization Address [facility] de Phone Number [facility] [address] [place] [address] * ANTIBODY SCREEN IGG (08/05/2020 11:05 AM EDT) Pathologist [facility] ABSC IgG Int Negative 08/05/2020 12:35 PM EDT [facility] Blood VENOUS BLOOD / Unknown Venipuncture / Unknown 08/05/2020 11:05 AM EDT 08/05/2020 11:23 AM EDT us Lesvia Savage NP BLOOD BANK ORDERABLES Final Result Performing Organization Address [facility] Co de Phone Number [facility] [address] [place] [address] * MOLECULAR VAGINITIS PANEL (MVP) (07/23/2020 3:24 PM EDT) Pathologist [facility] Bacterial Vaginosis Not Detected Not Detected 07/23/2020 10:49 PM EDT [facility] Comment:Normal/Balanced vagi nal microbiome. Nakaseomyces glabrata (previously Joann glabrata) Not Detected Not Detected 07/23/2020 10:49 PM EDT [facility] Joann group Not Detected Not Detected 07/23/2020 10:49 PM EDT [facility], [facility] Comment:C. albicans, C. trop icalis, C. parapsilosis, and/or C. dubliniensis NOT detected. Joann krusei Not Detected Not Detected 07/23/2020 10:49 PM EDT [facility], [facility] Trichomonas vaginalis Not Detected Not Detected 07/23/2020 10:49 PM EDT [facility], [facility] Swab SPECIMEN FROM VAGINA / Unknown 07/23/2020 3:24 PM EDT 07/23/2020 3:24 PM EDT Narrative [facility] - 07/23/2020 10:49 PM EDT Test performed using the [employer] Vaginal Panel, a real-time polymerase chain (PCR) molecular nucleic acid amplification test. Beverly Hernandez DO MICROBIOLOGY - GENERAL ORDERABLES Final Result [facility], [facility] [address] , [place] [address] * CHLAMYDIA/GC BY TMA (06/25/2020 6:00 PM EST) Only the most recent of2 resultswithin the time period is included. Chlamydia trachomatis Not Detected Not Detected 06/26/2020 12:30 AM EST [facility], [facility] Neisseria gonorrhoeae Not Detected Not Detected 06/26/2020 12:30 AM EST [facility], [facility] Swab SPECIMEN FROM UTERINE CERVIX / Unknown 06/25/2020 6:00 PM EST 06/25/2020 6:05 PM EST Narrative [facility], [facility] - 06/26/2020 12:30 AM EST Testing methodology is manager field mediated amplification (TMA) using the Aptima Combo 2 assay from [employer]. A negative result does not completely rule [...] OR DERABLES Final Result Performing Organization Address [facility] de Phone Number [facility] [address] , [place] [address] * TRICHOMONAS AG (06/25/2020 6:00 PM EST) Pathologist [facility] Trichomonas Ag Not Detected Not Detected 2020 6:40 PM EST [facility] Swab SPECIMEN FROM VAGINA / Unknown 06/25/2020 6:00 PM EST 06/25/2020 6:29 PM EST us Parveen Syed MD MICROBIOLOGY - GENERAL OR DERABLES Final Result Performing Organization Address [facility] de Phone Number [facility] [address] , [place] [address] * GRAM STAIN (STAIN ONLY) (06/25/2020 6:00 PM EST) Pathologist [facility] Stain Abundant epithelial cells 06/25/2020 6:41 PM [...] OR DERABLES Final Result Performing Organization Address [facility] de Phone Number [facility] [address] , [place] [address] * EXTRA STARK URINE CX (06/25/2020 5:44 PM EST) Urine URINE SPECIMEN COLLECTION, CLEAN CATCH / Unknown 06/25/2020 5:44 PM EST 06/25/2020 5:47 PM EST us Parveen Syed MD MICROBIOLOGY - GENERAL OR DERABLES Final Result Performing Organization Address City/[facility]/ZIP Co de Phone Number [facility] [address] [place], [place] [id number] * LH/FSH (06/10/2020 2:01 PM EST) LH 24.00 mIU/mL 06/10/2020 7:58 PM EST [facility] Comment: Suggested Reference Ranges (mIU/mL) Females Follicular Phase 2.4 - 12.6 Ovulation Phase 14.0 - 95.6 Luteal Phase 1.0 - 11.4 Postmenopause 7.7 - 58.5 Males 1.7 - 8.6 FSH 25.90 mIU/mL 06/10/2020 7:58 PM EST [facility] Comment: Suggested Reference Range (mIU/mL) Females Follicular Phase 3.5 - 12.5 Ovulation Phase 4.7 - 21.5 Luteal Phase 1.7 - 7.7 Postmenopause 25.8 - 134.8 Males 1.5 - 12.4 Blood Venipuncture / Unknown 06/10/2020 2:01 PM EST 06/10/2020 2:01 PM EST Narrative [facility] - 06/10/2020 7:58 PM EST Ingestion of rayshawn doses of biotin (>5 mg/day) taken within 8 hours of drawing blood sample can interfere with this immunoassay test. us Manuel Moran MD IMMUNOLOGY ORDERABLES Final Resu lt [facility] [address] [facility] [facility], [place] [address] * US PELVIS AND TRANSVAGINAL [...] NON OB COMPLETE 05/15/2020 CLINICAL HISTORY: N95.0-Postmenopausal gyvbysvt-HLE-25-CM. COMPARISON: None. PROCEDURE COMMENTS: Transabdominal and endovaginal sonographic evaluation of the pelvis with underwriting account representative images and tech notes for sent for [...] NON OB COMPLETE 05/15/2020 CLINICAL HISTORY: N95.0-Postmenopausal pukveuag-QVN-69-CM. COMPARISON: None. PROCEDURE COMMENTS: Transabdominal and endovaginal sonographic evaluationof the pelvis with underwriting account representative images and tech notes for sent for [...] Lvl 192 pg/mL 04/30/2020 4:39 PM EST [facility] Blood VENOUS BLOOD / Unknown Venipuncture / Unknown 04/30/2020 10:10 AM EST 04/30/2020 10:12 AM EST Narrative [facility] - 04/30/2020 4:39 PM EST Follicular phase [...] Arminda Wilson APRN CHEMISTRY ORDERABLES Final Result [facility] [address] [place] [address] , [facility] [address] [place] [id number] * RAKE OPERATOR CYTOLOGY REQUEST (PAP ONLY) (04/30/2020 9:55 AM EST) CASE REPORT Gynecologic Cytology Report Case: [id number] Authorizing Provider: Arminda Wilson APRN Collected: 04/30/2020 0955 Ordering Location: [facility] Received: 04/30/2020 0955 First Screen: Shaun Hull CT Specimen: LIQUID-BASED PAP - CERVICAL/ENDOCERV ICAL, Cervix, Endocervical 05/04/2020 9:13 AM EST [facility] PAP FINAL DIAGNOSIS Negative for intraepithelial lesion or malignancy 05/04/2020 9:13 AM EST [facility] at 0913 EST MICROSCOPIC DESCRIPTION Microscopic examination is performed and the findings corroborate the diagnosis 05/04/2020 9:13 AM [facility] PAP SMEAR ADEQUACY Satisfactory for evaluation 05/04/2020 9:13 AM [facility] PAP ORGANISMS NOTED Abundant bacteria present. 05/04/2020 9:13 AM [facility] ENDOCERVICAL T-ZONE Transformation zone absent. 05/04/2020 9:13 AM [facility] EMBEDDED IMAGES 9:13 AM [facility] PAP DISCLAIMER The Pap Smear is a screening test that aids in the detection of cervical cancer and cancer precursors. Both false positive and false negative results can occur. The test should be used at regular intervals, and positive results should be confirmed before definitive therapy. Processed using the [employer] Examiner Automated cytology screening device (Liveset). 05/04/2020 9:13 AM [facility] [employer] ENDOCERVICAL STRUCTURE / Unknown 04/30/2020 9:55 AM EST 04/30/2020 9:55 AM EST [facility] CYTOLOGY ORDERABLES [place] [address] * POCT INFLUENZA A/B (06/12/2019 5:03 PM EST) Only the most recent of2 resultswithin the time period is included. Influenza A Ag Neg SEP OFFICE Influenza B Ag Neg SEP OFFICE Lot Number [id number] SEP OFFICE Expiration Date SEP OFFICE Flu Blue Control Line (positive internal control) Yes SEP OFFICE Clear Background (negative internal control) Yes Yes/No SEP OFFICE 06/12/2019 5:03 PM EST [facility] SUPERVISOR SUNGLASSES POINT OF CARE TEST ORDERABL ES Final [...] 12:13 PM CLINICAL HISTORY: M79.601-Pain in right cel-DGI-54-CM COMPARISON: None. PROCEDURE COMMENTS: Orthogonal views of the forearm. Minimum two views. FINDINGS: No fracture of the radial or ulnar shafts. No foreign body. No gross deformity at the elbow or wrist. Procedure Note Semaj Rey MD - 03/18/2019 XR RADIUS ULNA RIGHT AP AND LATERAL, 03/18/2019 12:13 PM CLINICAL HISTORY: M79.601-Pain in right jrr-YVI-35-CM COMPARISON: None. PROCEDURE COMMENTS: Orthogonal views of [...] 12:13 PM CLINICAL HISTORY: M79.601-Pain in right qir-JRM-39-CM COMPARISON: None. PROCEDURE COMMENTS: Routine views per ordered protocol. FINDINGS: No visible fracture or malalignment. No fat pad displacement to suggest effusion. Ulnotrochlear degenerative changes are present. Procedure Note Semaj Rey MD - 03/18/2019 XR ELBOW RIGHT AP LATERAL AND OBLIQUES, 03/18/2019 12:13 PM CLINICAL HISTORY: M79.601-Pain in right ele-YJK-46-CM COMPARISON: None. PROCEDURE COMMENTS: Routine views per ordered protocol. FINDINGS: No visible fracture or malalignment. No fat pad displacementto suggest effusion. Ulnotrochlear degenerative changes are present. IMPRESSION: No acute bony abnormality of the elbow. - Arminda Wilson SUPERVISOR SUNGLASSES IMG DIAGNOSTIC IMAGING ORDE RABLES Final Result * (ABNORMAL) ANAEROBIC CULTURE (NO STAIN) (11/02/2018 7:43 AM EDT) Only the most recent of2 resultswithin the time period is included. Culture Positive Growth(A) 11/07/2018 10:20 AM EDT [facility] Culture Moderate growth of Finegoldia magna SUSCEPTIBI LITY RESULT 11/07/2018 10:20 AM EDT [facility] Comment:No further workup. Swab STRUCTURE OF LEFT ANKLE / Unknown 11/02/2018 7:43 AM EDT 11/02/2018 8:33 AM EDT Parveen Marsh MD MICROBIOLOGY - GENERAL OR DERABLES Final Result [facility] [address] [place] [address] , [place] [address] * INTRAOP AIRWAY PLACEMENT (11/02/2018 7:35 AM EDT) Narrative [facility] - 11/02/2018 7:35 AM EDT Jeffery [...] otilia Title: SINA us Jj Tanner MD [place] ANESTHESIA [place] [address] * VA US LOWER EXTREMITY VENOUS LEFT (10/06/2018 1:15 PM [...] AIRWAY PLACEMENT (09/28/2018 11:07 AM EDT) Narrative [facility] - 09/28/2018 11:07 AM EDT Babita [...] Atraumatic and Unchanged Insertion attempts: 2 Title: BUSINESS ANALYTICS ANALYST Procedure Note Babita Kennedy - 09/28/2018 11:07 [...] Atraumatic and Unchanged Insertion attempts: 2 Title: BUSINESS ANALYTICS ANALYST us Leonides You MD [place] ANESTHESIA Edited [facility] [address] [place] [address] * Peripheral Block by Anesthesia (09/28/2018 10:58 AM EDT) Narrative [facility] - 09/28/2018 10:58 AM EDT Leonides [...] You MD ANESTHESIA ORDERABLES Fin al Result [facility] [address] [place] [address] * ESTROGENS, FRACTIONATED BY TMS -REF LAB (04/30/2018 12:00 PM EST) [facility] Signature Estradiol 6.0 pg/mL 05/03/2018 8:08 AM EST [facility] Comment: REFERENCE INTERVAL: Estradiol by TMS Access complete set of age- and/or gender-specific reference intervals for this test in the [employer] ([employer]). Test developed and characteristics determined by [employer]. See Compliance Statement B: [employer] Estrone by 8.3 pg/mL 05/03/2018 8:08 AM EST [facility] Comment: REFERENCE INTERVAL: Estrone by TMS Access complete set of age- and/or gender-specific reference intervals for this test in the [employer] Directory ([employer]). Test developed and characteristics determined by [employer]. See Compliance Statement B: [employer] Estrogens Total 14.3 pg/mL 9 8:08 AM EST [facility] Comment: Females: (pg/mL) [employer]one Estradiol Total Estrogens Early follicular <150.0 30.0-100.0 30.0-250.0 Late follicular 100.0-250.0 100.0-400.0 200.0-650.0 Luteal <200.0 50.0-150.0 50.0-350.0 Post-menopausal 3.0-32.0 2.0-21.0 5.0-52.0 REFERENCE INTERVAL: Estrogens Total Calculation Access complete set of age- and/or gender-specific reference intervals for this test in the [employer] Directory ([employer]). Performed by [employer] [address] [place] [address] www.[facility], Dawson Ham MD, Lab. Director Blood VENOUS BLOOD / Unknown Venipuncture / Unknown 04/30/2018 12:00 PM EST 04/30/2018 12:00 PM EST us Abdulkadir Montoya MD CHEMISTRY ORDERABLES Final Res ult [employer] [address] [place] [address] * SCANNED RADIOLOGY REPORT (06/30/2017 12:54 PM [...] 06/30/2017 2:49 PM EST Exercise ECG Report [place] Interpretive Statements Type of Test: Exercise Reason [...] MD - 06/30/2017 IMPRESSION Exercise ECG Report [facility] Interpretive Statements Type of Test: Exercise Reason [...] <0.01 <0.01 ng/mL 06/30/2017 2:41 AM EST [facility] Blood VENOUS BLOOD / Unknown Venipuncture / Unknown 06/30/2017 2:20 AM EST 06/30/2017 2:21 AM EST Narrative [facility] - 06/30/2017 2:41 AM EST Values > or = 0.01 ng/mL have been shown to have prognostic value. us Abdiel Uribe MD CHEMISTRY ORDERABLES Final Result Performing Organization Address City/[facility]/ZIP Co de Phone Number [facility] [address] [facility] [place] [address] * DIFFERENTIAL (06/06/2016 4:01 PM EST) Only the most recent of7 resultswithin the time period is included. Neut Percent 55.2 % [facility] Lymph Percent 30.6 % [facility] Price Percent 10.1 % [facility] Eos Percent 3.7 % [facility] Baso Percent 0.4 % [facility] Neut# 4.0 1.8 - 7.7 x10(3)/mcL [facility] Lymph# 2.2 0.6 - 4.8 x10(3)/mcL [facility] Price# 0.7 0.0 - 1.3 x10(3)/mcL [facility] Eos# 0.3 0.0 - 0.5 x10(3)/mcL [facility] Baso# 0.0 0.0 - 0.2 x10(3)/[facility] LAB[facility] Blood specimen (specimen) 06/06/2016 4:01 PM EST 06/06/2016 9:09 PM EST us Abdulkadir Montoya MD HEMATOLOGY ORDERABLES Final Re sult [facility] [address] [place] [address] * T3 FREE (06/06/2016 4:01 PM EST) Only the most recent of3 resultswithin the time period is included. T3 Free 2.67 2.00 - 4.40 pg/mL [facility] Blood specimen (specimen) UPPER LIMB STRUCTURE / Unknown 06/06/2016 4:01 PM EST 06/06/2016 9:09 PM EST us Abdulkadir Montoya MD CHEMISTRY ORDERABLES Final Res ult Performing Organization Address [facility] de Phone Number [facility] [address] [place] [address] * VANCOMYCIN LEVEL TROUGH (03/30/2016 9:32 AM EST) Vanco Tr 14.3 10.0 - 20.0 mcg/mL [facility] Comment: Minimum serum concentration for infection control [...] ORDERABLES Final Re sult Performing Organization Address [facility] [place] [address] * BLOOD CULTURE (03/27/2016 1:24 PM EST) Only the most recent of2 resultswithin the time period is included. Final No growth at 5 days. [facility] Blood specimen (specimen) 03/27/2016 1:24 PM EST 03/27/2016 8:31 PM EST Narrative [facility] - 04/02/2016 11:01 AM EST Draw Type->Peripheral Samantha Lopez MD MICROBIOLOGY - GENERAL ORDERABL ES Final Result Performing Organization Address [facility] de Phone Number [facility] [address] [place] [address] * MRI LUMBAR SPINE W WO CONTRAST [...] foraminal region. 3. No epidural abscess identified. Samantha Lopez MD IMG MRI ORDERABLES Final Result * SMEAR REVIEW (03/27/2016 9:30 AM EST) RBC Morph Normal [facility] Blood specimen (specimen) 03/27/2016 9:30 AM EST 03/27/2016 9:40 AM EST Samantha Lopez MD HEMATOLOGY ORDERABLES Final Res ult [facility] [address] [place] [address] * XR LUMBAR SPINE SINGLE VW [...] years .Female. M51.26-Other intervertebral disc displacement, lumbar pyxmys-JMS-31-CM M54.0-Ujatyeksycb-CLO-10-CM. Technical: Axial, sagittal T1 and T2 imaging. [...] 40 years .Female. M51.26-Other intervertebral discdisplacement, lumbar kchybo-QJO-78-CM M54.7-Xncknhuqzus-LMW-10-CM. Technical: Axial, sagittal T1 and T2 imaging. [...] (ABNORMAL) POCT GLUCOSE (12/29/2015 4:42 PM EDT) Glucose 114 60 - 200 MG/DL SEP [...] AM History: 40 years .Female. R20.2-Paresthesia of mtow-OVG-94-CM M54.40-Lumbago with sciatica, unspecified yann-PNZ-73-CM. Low back pain. Bilateral leg pain. Numbness [...] AM History: 40 years .Female. R20.2-Paresthesia of hhva-UYV-97-CM M54.40-Lumbago with sciatica, unspecified hfkj-GYD-81-CM. Low back pain. Bilateral leg pain. Numbness [...] large acute posterior disc herniation at the L5/T4ndosa which is causing severe left side and [...] 10/29/2015 3:29 PM HISTORY: W19.XXXD-Unspecified fall, subsequent aojjzjjyr-YLV-61-CM M25.552-Pain in left wcn-NUE-45-CM Procedure Note Aracely Khoury MD - 10/29/2015 XR HIP LEFT AP AND LATERAL: 10/29/2015 3:29 PM HISTORY: W19.XXXD-Unspecified fall, subsequent fvvigqlur-XSB-43-CM M25.552-Pain in left opx-WIT-08-CM IMPRESSION: No significant osseous, joint or soft tissue abnormality isseen. Antonella Winston PA-C IMG DIAGNOSTIC FLACO GING [...] 10/29/2015 3:29 PM HISTORY: W19.XXXD-Unspecified fall, subsequent zyyqkilgx-WEG-02-CM M54.42-Lumbago with sciatica, left sjpc-GEH-81-CM Alignment is normal. No fracture subluxation or pars defect identified. There is mild narrowing of L5-S1 disc unchanged from 03/06/2014. Procedure Note Glendy Kim MD - 10/29/2015 XR LUMBAR SPINE AP LATERAL AND OBLIQUES 10/29/2015 3:29 PM HISTORY: W19.XXXD-Unspecified fall, subsequent fgnybzaeu-MRA-94-CM M54.42-Lumbago with sciatica, left xcmy-IFB-94-CM Alignment is normal. No fracture subluxation or [...] is included. Color, UA YEL Clear, Yellow, [place], [place] SEP OFFICE Clarity, UA CLR Clear, Cloudy SEP OFFICE Glucose, UA NEG g/dl% SEP OFFICE Bilirubin, UA NEG Pos/Neg SEP OFFICE Ketones, UA NEG Pos/Neg SEP photogeologist Grav, UA 1.015 1.001 - 1.035 g/dl SEP OFFICE Blood, UA 3+ Pos/Neg SEP OFFICE pH, UA 6.0 5.0 - 8 SEP OFFICE Protein, UA NEG Pos/Neg SEP OFFICE Urobilinogen, UA 0.2 0.2 - 1.0 mg/dL SEP OFFICE Leukocytes, UA NEG Pos/Neg SEP OFFICE Nitrite, UA NEG Pos/Neg SEP OFFICE UA Appear POC NA SEP OFFICE Lot Number [id number] SEP OFFICE Expiration Date 12/2016 SEP OFFICE [...] Report Accession Number Collected Date/Time Received Date/Time [id number] 07/29/15 14:33 EDT 07/29/15 22:11 EDT Diagnosis [...] cysts up to 1.1 cm in diameter. Machine Programmer sections are submitted as follows: 2A-2B: bilateral fallopian tubes 2C-2E: ovary / BC DRB/DH Microscopic Description Microscopic examination is performed and the findings corroborate the diagnosis. [facility] 07/29/2015 2:33 PM EDT us Manuel Moran MD PATHOLOGY ORDERABLES Final Resul t [facility] [address] [place] [address] * CT ABD PEL ED FAST W [...] Trichomonas seen Negative for yeast Rare WBC's [facility] Vaginal swab (specimen) 07/27/2015 4:40 PM EDT 07/27/2015 4:45 PM EDT Parveen Rodriguez MD MICROBIOLOGY - GENERAL ORDERABLE S Final Result Performing Organization Address [facility] Phone Number [facility] [address] [place] [address] * HCG QUALITATIVE (07/27/2015 3:35 PM EDT) HCG QUAL Negative [facility] Blood specimen (specimen) 07/27/2015 3:35 PM EDT 07/27/2015 3:39 PM EDT Parveen Rodriguez MD CHEMISTRY ORDERABLES Edited Resu lt - Final Performing Organization Address [facility] Phone Number [facility] [address] [place] [address] * PROLACTIN LEVEL (02/05/2015 4:25 PM EDT) Prolactin 17.43 4.79 - 23.30 ng/mL [facility] Blood specimen (specimen) UPPER LIMB STRUCTURE / Unknown 02/05/2015 4:25 PM EDT 02/05/2015 8:55 PM EDT Abdulkadir Montoya MD CHEMISTRY ORDERABLES Final Res ult Performing Organization Address [facility] de Phone Number [facility] [address] [place] [address] * LUTEINIZING HORMONE (02/05/2015 4:25 PM EDT) LH 10.35 mIU/mL [facility] Comment: Suggested Reference Ranges (mIU/mL) Females Follicular Phase 2.4 - 12.6 Ovulation Phase 14.0 - 95.6 Luteal Phase 1.0 - 11.4 Postmenopause 7.7 - 58.5 Males 1.7 - 8.6 Blood specimen (specimen) UPPER LIMB STRUCTURE / Unknown 02/05/2015 4:25 PM EDT 02/05/2015 8:55 PM EDT Abdulkadir Montoya MD CHEMISTRY ORDERABLES Final Res ult Performing Organization Address [facility] de Phone Number [facility] [address] [place] [address] * FOLLICLE STIMULATING HORMONE LEVEL (02/05/2015 4:25 PM EDT) Pathologist [facility]SH 4.43 mIU/mL [facility] Comment: Suggested Reference Range (mIU/mL) Females Follicular Phase 3.5 - 12.5 Ovulation Phase 4.7 - 21.5 Luteal Phase 1.7 - 7.7 Postmenopause 25.8 - 134.8 Males 1.5 - 12.4 Blood specimen (specimen) UPPER LIMB STRUCTURE / Unknown 02/05/2015 4:25 PM EDT 02/05/2015 8:55 PM EDT Abdulkadir Montoya MD CHEMISTRY ORDERABLES Final Res ult Performing Organization Address [facility] de Phone Number [facility] [address] [place] [address] * (ABNORMAL) IRON/UIBC (01/20/2015 2:58 PM EDT) Only the most recent of2 resultswithin the time period is included. Pathologist [facility] Iron 29(L) 30 - 160 mcg/dL [facility] UIBC 263 112 - 347 mcg/dL [facility] Transferrin Saturation 10(L) 20 - 50 % [facility] Blood specimen (specimen) UPPER LIMB STRUCTURE / Unknown 01/20/2015 2:58 PM EDT 01/20/2015 9:13 PM EDT Abdulkadir Montoya MD CHEMISTRY ORDERABLES Final Res ult Performing Organization Address [facility] Co de Phone Number [facility] [address] [place] [address] * POCT HEMOCCULT 1-3 CARDS (10/27/2014 3:16 PM EDT) Pathologist [facility] Fec Heme NEG Pos/Neg SEP OFFICE Comment:ALL 3 SPECIMENS FROM 10/21/14 NEG Lot Number SEP OFFICE Expiration Date SEP OFFICE SeriAl # SEP OFFICE Stool specimen (specimen) 10/27/2014 3:16 PM EDT Abdulkadir Montoya MD POINT OF CARE TEST ORDERABLES Final Result Performing Organization Address [facility] de Phone Number SEP OFFICE * (ABNORMAL) FERRITIN (10/20/2014 2:32 PM EDT) Ferritin 7(L) 13 - 150 ng/mL [facility] Blood specimen (specimen) UPPER LIMB STRUCTURE / Unknown 10/20/2014 2:32 PM EDT 10/20/2014 7:38 PM EDT us Abdiel Lucas MD CHEMISTRY ORDERABLES Final Result Performing Organization Address [facility] de Phone Number [facility] [address] [place] [address] * MAGNESIUM LEVEL (10/17/2014 5:05 AM EDT) Pathologist [facility] Magnesium 2.0 1.6 - 2.4 mg/dL [facility] Blood specimen (specimen) 10/17/2014 5:05 AM EDT 10/17/2014 5:50 AM EDT Brandee Fuller SUPERVISOR [employer] CHEMISTRY ORDERABLES Final Res ult Performing Organization Address [facility] de Phone Number [facility] [address] [place] [address] * (ABNORMAL) HEPATIC FUNCTION PANEL (10/17/2014 5:05 AM EDT) Total Protein 6.3(L) 6.4 - 8.3 gm/dL [facility] Albumin 3.8 3.5 - 5.2 gm/dL SE LAB Bili Direct <0.2 0.0 - 0.3 mg/dL SE LAB Bili Total 0.3 0.1 - 1.3 mg/dL SE LAB AST 18 <=40 IU/L SE LAB ALT 18 <=41 IU/L [facility] Alk Phos 77 35 - 104 IU/L [facility] Blood specimen (specimen) 10/17/2014 5:05 AM EDT 10/17/2014 5:50 AM EDT us Brandee Fuller [employer]PER[employer] CHEMISTRY ORDERABLES Edited Re sult - Final [facility] [address] [place] [address] * IR INJECTION INTERLAMINAR EPIDUR LUMBAR SACRAL [...] BRIEF HISTORY: The patient presents today to [facility] for a scheduled lumbar epidural steroid injection [...] 2 to 4 weeks. Jayda Hamilton MD [employer] Trained / Board Certified [facility] [phone] [facility] Procedure Note Jayda Hamilton MD - 06/30/2014 PRE-PROCEDURE DIAGNOSIS: 724.4 POST-PROCEDURE DIAGNOSIS: 724.4 PROCEDURE: Left L5-S1 Interlaminar lumbar epidural steroid injection withfluoroscopy and epidurography. BRIEF HISTORY: [facility]. [...] transferred by wheelchair with accompaniment to the [facility] Recovery Area and was monitored per protocol. [...] 2 to 4 weeks. Jayda Hamilton MD [employer] Trained / Board Certified [facility] [phone] [facility] us Jim Penn MD IMG IR ORDERABLES Final Resu lt * XR [...] back pain. IMPRESSION: No fracture. No dislocation. us Abdulkadir Montoya MD IMG DIAGNOSTIC IMAGING ORDERAB [...] tissue abnormality isseen. us Abdiel Uribe MD [facility] DIAGNOSTIC IMAGING ORDKim BALDWIN Final Result * MRI SHOULDER RIGHT [...] changes of the AC joint. 5. Impingement. Abdulkadir Montoya MD [facility] MRI ORDERABLES Final Resul t * XR [...] TEST (06/18/2012 9:14 AM EST) Test Negative [facility] Blood specimen (specimen) 06/18/2012 9:14 AM EST 06/18/2012 9:21 AM EST us Faith Navas MD CHEMISTRY ORDERABLES Edited [facility] [address] [place] [address] * SCANNED LABS (03/14/2012 12:00 AM EST) [...] significant change from earlier record Borderline ECG Wall Attendant- KRISTEN LOUIE MD Reading Physician- KRISTEN LOUIE MD Released Date Time- 12/24/08 1512 Procedure Note Kristen Louie - 07/03/2009 Sinus rhythm Anterior T wave changes are borderline abnormal No significant change from earlier record Borderline ECG Wall Attendant- KRISTEN LOUIE MD Reading Physician- KRISTEN LOUIE MD Released Date Time- 12/24/08 1512 Abdulkadir Montoya MD [facility] [employer] HISTORICAL F inal Result * [...] Chest is otherwise negative. Impression- Negative chest. Wall Attendant- BERENICE Schulz Physician- EMILY SPENCER M.D. Released Date Time- 12/23/08 1537 Procedure Note Emily Spencer - 07/03/2009 Portable chest, 12/23/2008 Indication- Shortness of breath. Findings- AP upright portable chest is compared to two-view chest 07/04/2005. No significant interval change. Normal heart size and pulmonary vascularity. Lungs are clear. Chest is otherwise negative. Impression- Negative chest. Loreto Schulz PhysicianDylan SPENCER M.D. Released Date Time- 12/23/08 1537 us Manav Kim Funk DO IMG SE STAR RAD HISTORICAL F inal Result * EK EKG REG GC (07/04/2008 3:15 PM EDT) Anatomical Region Laterality Modality Other 07/04/2008 3:15 PM EDT Narrative 07/05/2008 10:00 AM EDT Sinus tachycardia Nonspecific St and/or T-wave abnormality Rate faster than on previous tracing. Wall Attendant- NICOLAS Schulz PhysicianDylan HIDALGO M.D. Released Date Time- 07/05/08 1000 Procedure Note Nicolas Hidalgo - 07/02/[address] and/or T-wave abnormality Rate faster than on previous tracing. Loreto HIDALGO M.D. Released Date Time- 07/05/08 1000 Fredrick Christian MD [facility] STAR CARD HISTORICAL F inal Result * XR SHOULDER GC (05/25/2007 7:13 PM EST) Anatomical Region Laterality Modality Other 05/25/2007 7:13 PM EST Narrative 05/25/2007 9:36 PM EST RM7 Right shoulder series, (C3 views)- 3 day history of recurrent pain. No recent trauma. Normal alignment of the AC and glenohumeral joints. No focal fracture or degenerative change. Impression- Negative right shoulder. Wall AttendantDylan Schulz Radiologist- WILLIAM ALMONTE DO Released Date Time- 05/25/072248 Procedure Note William Almonte - 07/02/2009 RM7 Right shoulder series, (C3 views)- 3 day history of recurrent pain. No recent trauma. Normal alignment of the AC and glenohumeral joints. No focal fracture or degenerative change. Impression- Negative right shoulder. Wall AttendantDylan Schulz Radiologist- WILLIAM ALMONTE DO Released Date Time- 05/25/07 2249 Kaleb Muir MD [facility] [employer] RAD HISTORICAL Final Result * XR CHEST PA [...] is seen. Impression- No acute cardiopulmonary disease. Wall Attendant- GISELA Schulz Radiologist- WILLIAM DICKINSON MD Released [...] is seen. Impression- No acute cardiopulmonary disease. Wall Attendant- GISELA Schulz Radiologist- WILLIAM DICKINSON MD Released Date Time- 07/04/05 1234 Jj High MD [facility] HISTORICAL Final Result * XR SHOULDER (03/05/2005 10:15 PM EST) Anatomical Region Laterality Modality Other 03/05/2005 10:1 5 PM EST Narrative 03/06/2005 8:52 AM EST RM 3 Right shoulder three views 03/05/2005. HISTORY- Injury. No fracture or dislocation is seen. Wall Attendant- AVELINO Schulz Radiologist- COY TOTH MD Released Date Time- 03/06/05 0852 Procedure Note Coy Toth - 06/30/2009 RM 3 Right shoulder three views 03/05/2005. HISTORY- Injury. No fracture or dislocation is seen. Wall Attendant- AVELINO Schulz Radiologist- COY TOTH MD Released Date Time- 03/06/05 0852 Shantal Hinton MD [facility] RAD HISTORICA L Final Result * MM DIAGNOSTIC BILATERAL (10/29/2004 12:00 AM EDT) Anatomical Region Laterality Modality Other 10/29/2004 10/29/2004 Narrative 10/29/2004 12:00 AM EDT VERIFIED [facility] Reason: MASTALGIA Dict.Staff: ARACELY HANKINS Verified By: [...] Procedure Note Unknown, U - 08/06/2009 VERIFIED [facility] Reason: MASTALGIA Dict.Staff: ARACELY HANKINS Verified By: [...] GROUNDS. end of result us U Unknown [facility] Final Result Visit Diagnoses [...] 04/20/2023 Obesity, morbid, BMI 50 or higher ([facility]) 04/20/2023 TANIA (obstructive sleep apnea) Obstructive sleep [...] 05/02/2023 Obesity, morbid, BMI 50 or higher ([facility]) 05/09/2023 Obstructive sleep apnea Obstructive sleep apnea [...] 11/12/2024 History of suburethral sling procedure 11/12/2024 Seizure-like activity (HCC) Other convulsions 11/19/2024 Chest pain Chest pain, unspecified 10/17/2014 Asthma [...] Rectocele 04/04/2024 Stress incontinence in female 04/04/2024 Seizure-like activity (HCC) Other convulsions 11/16/2024 Class 3 severe obesity due to excess calories with body mass index (BMI) of 60.0 to 69.9 in adult 11/16/2024 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 Author Eat better, exercise, reach an ideal body weight General No Rula Birch CCMA Stay Tobacco Free Lifestyle No Rula Birch CCMA Care Teams Crisis Specialist Relationship Specialty Start Date End Date Abdulkadir [place] [address] [place] [address] PCP - General 06/29/09
--- OUTSIDE RECORDS SUMMARY | 2024-11-25 13:00 | XMS_ITS | Encounter Summary ---
Author Organization [facility] [place] [address] Care Team Providers Care Rn Endocrinology Name Role Phone Abdulkadir Montoya MD Primary Care Provider [phone] Encounter Details Date Type Department Care Team (Late st Contact Info) Description 10/30/2024 Results Follow-Up SEP [facility] [address] [place] [address] Arminda Wilson APRN [address] [place] [address] MM MAMMO DIGITAL TRACIE SCREEN BILAT [...] Score 0 04/04/2023 [facility] [place] of Occupat ional Health - Occupational Stress [...] Info) Description 11/27/2024 8:00 AM EDT Appointment [facility] [address] [place] [address] Abdulkadir Montoya MD COUNTRY [facility] [place] [address] 02/10/2025 1:30 PM EDT Office Visit [facility] [place] [address] [address] Judith Lomax MD [address] [employer] [address] [address] documented as of this encounter Goals Goal Patient Goal Type Associated Problems Recent Progress Patient-Stated? Author Eat better, exercise, reach an ideal body weight General No Rula Birch CCMA Stay Tobacco Free Lifestyle No Rula Birch CCMA documented as of this encounter Visit Diagnoses Not on filedocumented in this encounter Care Teams Rn Endocrinology Relationship Specialty Start Date End Date Abdulkadir Montoya MD COUNTRY [facility] [place] [address] PCP - General 06/29/09 documented as of this encounter
--- OUTSIDE RECORDS SUMMARY | 2024-11-25 13:00 | XMS_ITS | Encounter Summary ---
Author Organization [place] [address] Care Team Providers Care Adobe Layer Helper Name Role Phone Abdulkadir Montoya MD Primary Care Provider Reason for Visit * Reason Onset Date Comments Other 09/13/2024 FYI: Pt having m uscle spasm Patient Returning Call 09/13/2024 pt son ca lled to say that they took her to the ED Encounter Details Date Type Department Care Team (Late Contact Info) Description 09/13/2024 Telephone SEP [facility] [place] [address] Abdulkadir Montoya MD COUNTRY [facility] [place] [address] Other (FYI: Pt having muscle spasm); [...] Date Recorded PHQ-2 Total Score 0 04/04/2023 [facility] - Occupational Stress Questionnaire Answer Date [...] 9:34 AM EDT Lalitha Skinner RN * [place] Suicide Severity Rating Scale (Q shift for [...] question 6) 0 09/16/2024 9:34 AM EDT aLlitha Skinner RN 6. Have you ever done [...] Description 11/27/2024 8:00 AM EDT Appointment [facility] [address] [facility] [address] Abdulkadir Montoya MD [address] [place] [address] 02/10/2025 1:30 PM EDT Office Visit [facility] [place] [address] [facility] [address] [place] [address] Judith Lomax MD [address] [facility] [address] [place] [address] documented as of this encounter Goals Goal Patient Goal Type Associated Problems Recent Progress Patient-Stated? Author Eat better, exercise, reach an ideal body weight General No Rula Birch CCMA Stay Tobacco Free Lifestyle No Rula Birch CCMA documented as of this encounter Visit Diagnoses Not on filedocumented in this encounter Care Teams Adobe Layer Helper Relationship Specialty Start Date End Date Abdulkadir Montoya MD [address] [place] [address] PCP - General 06/29/09 documented as of this encounter
--- OUTSIDE RECORDS SUMMARY | 2024-11-25 13:00 | XMS_ITS | Encounter Summary ---
Author Organization [place] [address] Care Team Providers Care Service Desk Agent Name Role Phone Abdulkadir Montoya MD Primary Care Provider Encounter Details Date Type Department Care Team (Late st Contact Info) Description 10/07/2024 Results [facility] [place] 1500 [facility] [address] [place] [address] Judith Lomax MD 1500 [facility] [address] [place] [phone] THYROID STIMULATING HORMONE Social History Tobacco [...] Date Recorded PHQ-2 Total Score 0 04/04/2023 [facility] [place] of Occupat ional Health - Occupational Stress [...] Info) Description 11/27/2024 8:00 AM EDT Appointment [facility] [place] MRI [address] [place] [address] Abdulkadir Montoya MD [address] [facility] [place] [address] 02/10/2025 1:30 PM EDT Office Visit [facility] Diabetes [place] [address] [facility] [address] [place] [address] Judith Lomax MD [address] [phone] documented as of this encounter Goals Goal Patient Goal Type Associated Problems Recent Progress Patient-Stated? Author Eat better, exercise, reach an ideal body weight General No GroRula garcia, CCMA Stay Tobacco Free Lifestyle No Rula Birch, CCMA documented as of this encounter Visit Diagnoses Not on filedocumented in this encounter Care Teams Service Desk Agent Relationship Specialty Start Date End Date Abdulkadir Montoya MD [address] [facility] [place] [address] PCP - General 06/29/09 documented as of this encounter
--- OUTSIDE RECORDS SUMMARY | 2024-11-25 13:00 | XMS_ITS | Encounter Summary ---
Author Organization [place] [address] Care Team Providers Care Racquet Maker Name Role Phone Abdulkadir Montoya MD Primary Care Provider [phone] Reason for Visit * Reason Comments Medication Refill Encounter Details Date Type Department Care Team (Late st Contact Info) Description 10/06/2024 Refill [facility] [place] [address] Abdulkadir Montoya MD [...] Date Recorded PHQ-2 Total Score 0 04/04/2023 [facility] [place] of Occupat ional Health - Occupational Stress [...] Info) Description 11/27/2024 8:00 AM EDT Appointment [facility] MRI [address] [place] [address] Abdulkadir Montoya MD [address] [place] [address] 02/10/2025 1:30 PM EDT Office Visit [facility] Diabetes [place] [address] [address] Judith Lomax MD [address] [address] documented as of this encounter [...] documented as of this encounter Care Teams Racquet Maker Relationship Specialty Start Date End Date Abdulkadir Montoya MD [address] [place] [address] PCP - General 06/29/09 documented as of this encounter
--- OUTSIDE RECORDS SUMMARY | 2024-11-25 13:00 | XMS_ITS | Encounter Summary ---
Author Organization [place] [address] Care Team Providers Care Negative Developer Name Role Phone Abdulkadir Montoya MD Primary Care Provider [phone] Reason for Visit * Reason Comments Medication Refill Encounter Details Date Type Department Care Team (Late st Contact Info) Description 10/07/2024 Refill [facility] [address] [place] [address] Arminda Wilson APRN [address] [place], [place] [id number] Medication Refill Social History Tobacco Use Types [...] Date Recorded PHQ-2 Total Score 0 04/04/2023 [facility] [place] of Occupat ional Health - Occupational Stress [...] BY MOUTH EVERY DAY 30 Tablet 10/09/2024 11/17/2024 documented in this encounter Miscellaneous Notes * [...] Info) Description 11/27/2024 8:00 AM EDT Appointment [facility] MRI [address] [place] [address] Abdulkadir Montoya MD [address] [employer] [place] [address] 02/10/2025 1:30 PM EDT Office Visit [facility] Diabetes [address] [address] Judith Lomax MD [address] [address] documented as of this encounter Goals Goal Patient Goal Type Associated Problems Recent Progress Patient-Stated? Author Eat better, exercise, reach an ideal body weight General No Rula Birch CCMA Stay Tobacco Free Lifestyle No Grooms, Rula, CCMA documented as of this encounter Visit Diagnoses Not on filedocumented in this encounter Discontinued Medications Medication Sig Discontinue Reason Start Date End Da te fUROsemide (LASIX) 40 mg Oral Tablet TAKE 1 TABLET BY MOUTH EVERY DAY 08/30/2024 10/09/2024 documented as of this encounter Care Teams Negative Developer Relationship Specialty Start Date End Date Abdulkadir Montoya MD [address] [place] [address] PCP - General 06/29/09 documented as of this encounter
--- OUTSIDE RECORDS SUMMARY | 2024-11-25 13:00 | XMS_ITS | Encounter Summary ---
Author Organization [place] [address] Care Team Providers Care Jewelry Racker Name Role Phone Abdulkadir Montoya MD Primary Care Provider Reason for Visit * Reason Comments Medication Refill Encounter Details Date Type Department Care Team (Late st Contact Info) Description 11/02/2024 Refill [facility] [place] [address] Abdulkadir Montoya [place] [address] Medication Refill Social History Tobacco Use [...] Date Recorded PHQ-2 Total Score 0 04/04/2023 [facility] [place] of Occupat ional Health - Occupational Stress [...] Info) Description 11/27/2024 8:00 AM EDT Appointment [facility] [place] MRI [address] [place] [address] Abdulkadir Montoya MD [address] [place] [address] 02/10/2025 1:30 PM EDT Office Visit [facility] Diabetes [place] [address] [address] Judith Lomax MD [address] [address] documented as of this encounter [...] documented as of this encounter Care Teams Jewelry Racker Relationship Specialty Start Date End Date Abdulkadir Montoya MD [address] [place] [address] PCP - General 06/29/09 documented as of this encounter
--- OUTSIDE RECORDS SUMMARY | 2024-11-25 13:00 | XMS_ITS | Encounter Summary ---
Author Organization [place] [address] Care Team Providers Care Husbandry Person Name Role Phone Abdulkadir Montoya MD Primary Care Provider [phone] Reason for Visit * Reason Onset Date Comments Medication Refill 09/20/2024 Encounter Details Date Type Department Care Team (Late st Contact Info) Description 09/20/2024 Refill [facility] [place] [address] [place] [address] Arminda Wilson, GLASS BEAD MAKER [address] [place] [address] Medication Refill Social History Tobacco Use [...] Date Recorded PHQ-2 Total Score 0 04/04/2023 [facility] [place] of Occupat ional Health - Occupational Stress [...] Info) Description 11/27/2024 8:00 AM EDT Appointment [facility] [place] MRI [address] [place] [address] Abdulkadir Montoya MD [address] [place] [phone] 02/10/2025 1:30 PM EDT Office [facility] Diabetes [place] 1500 [facility] [address] [place] [address] Judith Lomax MD 1500 [employer] [facility] [address] [place] [phone] documented as of this encounter Goals Goal Patient Goal Type Associated Problems Recent Progress Patient-Stated? Author Eat better, exercise, reach an ideal body weight General No GroomsJeffreyRula, CCMA Stay Tobacco Free Lifestyle No GroRula garcia, CCMA documented as of this encounter Visit Diagnoses Diagnosis Viral URI with cough Acute upper respiratory infections of unspecified site documented in this encounter Care Teams Husbandry Person Relationship Specialty Start Date End Date Abdulkadir Montoya MD [address] [place] [phone] PCP - General 06/29/09 documented as of this encounter
--- OUTSIDE RECORDS SUMMARY | 2024-11-25 13:00 | XMS_ITS | Clinical Summary ---
Author Organization [facility] Address [address] [place] [address] Care Team Providers Care Brands Editor Name Role Phone System, Provider Not In [...] therelease of HIV test results or diagnoses. [id number] Allergies Active Allergy Reactions Criticality Noted Date [...] (stress urinary incontinence, female) 500 mg Oral call center analyst to O.R. 01/11/2024 Active Social History Tobacco [...] 1977 Eye Exam 1977 Hepatitis C Screening ([employer]) 1977 Alcohol Misuse Screening 10/22/1995 Depression Screening 10/22/1995 HIV Screening 10/22/1995 Immunization: Hepatitis B (1 of 3 - 19+ 3-dose series) 1996 Mammogram ([employer]) 2017 Cologuard (FIT-DNA) 2022 Colonoscopy 2022 Colorectal Cancer Screening (MyChart) 2022 Stool Testing (gFOBT) 2022 Immunization: COVID-19 ( - season) 2023 Immunization: DTaP/Tdap/Td ( 2 - Td or Tdap) 10/20/2024 10/20/2014 Immunization: Influenza (MyChart) (#1) 2024 02/28/2018, 01/25/2013 Immunization: Pneumococcal Aged Out 02/28/2018 N o longer eligible based on patient's age to complete this topic Insurance BLUE ACCESS Care Teams Brands Editor Relationship Specialty Start Date End Date System, Provider Not In PCP - General 11/02/23
--- OUTSIDE RECORDS SUMMARY | 2024-11-25 13:01 | XMS_ITS | Encounter Summary ---
Author Organization [place] [address] Care Team Providers Care Scientific Editor Name Role Phone Abdulkadir Montoya MD Primary Care Provider [phone] Reason for Visit * Reason Onset Date Comments Appointment Needed 11/18/2024 hospital f/u for seizure like episodes. discharged 11/17/ no bal Encounter Details Date Type Department Care Team (Late st Contact Info) Description 11/18/2024 Telephone [facility] [place] [address] Abdulkadir Montoya MD [address] [place] [address] [place] [address] Appointment Needed (hospital f/u for seizure like episodes. discharged 11/17/ no bal) Social History Tobacco Use Types Packs/Day Years [...] Date Recorded PHQ-2 Total Score 0 04/04/2023 [facility] - Occupational Stress Questionnaire Answer Date [...] 11:02 AM EDT HOEH, AN NA * Because of a physical, [...] Date Author No 09/02/2023 11:02 AM EDT MAS[place]OT, LATRICE NA documented in this encounter Miscellaneous Notes * Telephone Encounter - Yelitza Arreaga MA - 11/18/2024 9:55 AM EDT Appointment scheduled * Telephone Encounter - Rula Birch CCMA - 11/18/2024 9:27 AM EDT Can see tomorrow by us or delta for follow up * Telephone Encounter - Abdulkadir Garza - 11/18/2024 9:16 AM EDT Select the most appropriate reason for this telephone message: Appointment Needed Appointment Requested By: Patient Provider Preference: PCP Only or [place] Type of Appt Needed: Hospital Follow Up Detailed Reason for Appt: hospital f/u for seizure like episodes. discharged 11/17/ bal Requested Timeframe: Today Reason Scheduling Assistance is Needed: -no appts available with provider preference in time frame needed Return Method of Communication: Phone Call Additional Information: please advise pt documented in this encounter Plan of Treatment Upcoming Encounters Date Type Department Care Team (Late st Contact Info) Description 11/27/2024 8:00 AM EDT Appointment [facility] MRI [address] [place] [address] Abdulkadir Montoya MD [address] [place] [phone] 02/10/2025 1:30 PM EDT Office Visit [facility] Diabetes [place] [address] [facility] [address] [place] [address] Judith Lomax MD [address] [facility] [address] [place] [address] documented as of this encounter Goals Goal Patient Goal Type Associated Problems Recent Progress Patient-Stated? Author Eat better, exercise, reach an ideal body weight General No GroRula garcia CCMA Stay Tobacco Free Lifestyle No Rula Birch CCMA documented as of this encounter Visit Diagnoses Not on filedocumented in this encounter Care Teams Scientific Editor Relationship Specialty Start Date End Date Abdulkadir Montoya MD [address] [place] [phone] PCP - General 06/29/09 documented as of this encounter
--- OUTSIDE RECORDS SUMMARY | 2024-11-25 13:01 | XMS_ITS | Encounter Summary ---
Author Organization [facility] [place] [address] Care Team Providers Care Escort Car Driver Name Role Phone Abdulkadir Montoya MD Primary Care Provider [phone] Encounter Details Date Type Department Care Team (Latest Contact Info) Description 11/20/2024 Results Follow-Up [facility] [address] [place] [address] Abudlkadir Montoya MD [address] [place] [address] THYROID STIMULATING HORMONE, T4, FREE (THYROXINE), SEDIMENTATION RATE AUTOMATED, Additional followed-up results: 2 Social History Tobacco Use Types Packs/Day Years [...] Date Recorded PHQ-2 Total Score 0 04/04/2023 [facility] [place] of Occupat ional Health - Occupational Stress [...] JAKUB, AN NA documented in this encounter Progress Notes * Abdulkadir Montoya MD - 11/20/2024 7:52 AM EDT Inflammatory markers remain elevated, would proceed with MRI for further evaluation. I will place the order. documented in this encounter Plan of Treatment Upcoming Encounters Date Type Department Care Team (Late st Contact Info) Description 11/27/2024 8:00 AM EDT Appointment [facility] MRI [address] [place] [address] Abdulkadir Montoya MD [address] [place] [address] 02/10/2025 1:30 PM EDT Office Visit [facility] Diabetes [place] 1500 [facility] [address] [place] [address] Judith Lomax MD [address] [facility] [address] [place] [address] documented as of this encounter Goals Goal Patient Goal Type Associated Problems Recent Progress Patient-Stated? Author Eat better, exercise, reach an ideal body weight General No GroRula garcia, CCMA Stay Tobacco Free Lifestyle No GroRula garcia CCMA documented as of this encounter Visit Diagnoses Not on filedocumented in this encounter Care Teams Escort Car Driver Relationship Specialty Start Date End Date Abdulkadir Montoya MD [address] [facility] [place] [phone] PCP - General 06/29/09 documented as of this encounter
--- OUTSIDE RECORDS SUMMARY | 2024-11-25 13:01 | XMS_ITS | Encounter Summary ---
Author Organization [facility] [place] [address] Care Team Providers Care Credit And Collection Manager Name Role Phone Abdulkadir Montoya MD Primary Care Provider [phone] Encounter Details Date Type Department Care Team [...] Total Score 0 04/04/2023 [facility] [place] of Occupat ional Health - Occupational Stress [...] 09/02/2023 11:02 AM LATRICE LYMAN NA * Suicide Severity Rating Answer Date of Assessment Author No Risk 11/16/2024 11:08 PM Mark Alvarado am, RN * [place] Suicide Severity Rating Scale (Q shift for moderate and high) Question Answer Date of Assessment Author 1. In the past month, have you wished you were or wished you could go to sleep and not wake up? 0 11/16/2024 11:08 PM EDT Hannah Mitchell, JEREL 2. In the past month, have you actually had any thoughts of killing yourself? (If no, skip to question 6) 0 11/16/2024 11:08 PM EDT Hannah Mitchell RN 6. Have you ever done anything, started to do anything, or prepared to do anything to end your life? 0 11/16/2024 11:08 PM EDT Mark Krishnamurthy RN documented as of this encounter Mental Status * Because of a physical, mental or emotional condition, does this person have serious difficulty concentrating, remembering or making decisions? Answer Entry Date Author No 09/02/2023 11:02 AM EDT LATRICE CALL documented in this encounter Plan of Treatment Upcoming Encounters Date Type Department Care Team (Late st Contact Info) Description 11/27/2024 8:00 AM EDT Appointment [facility] MRI [address] [place] [address] Abdulkadir Montoya MD [employer] [facility] [place] [address] 02/10/2025 1:30 PM EDT Office Visit [facility] Diabetes [place] [address] [employer] [facility] [address] [place] [address] Judith Lomax MD [address] [employer] [facility] [address] [place] [address] documented as of this encounter Goals Goal Patient Goal Type Associated Problems Recent Progress Patient-Stated? Author Eat better, exercise, reach an ideal body weight General No Rula Birch CCMA Stay Tobacco Free Lifestyle No Rula Birch CCMA documented as of this encounter Visit Diagnoses Not on filedocumented in this encounter Care Teams Credit And Collection Manager Relationship Specialty Start Date End Date Abdulkadir Montoya MD [address] [place] [phone] PCP - General 06/29/09 documented as of this encounter
--- OUTSIDE RECORDS SUMMARY | 2024-11-25 13:01 | XMS_ITS | Encounter Summary ---
Author Organization [place] [address] Care Team Providers Care Middle School Art Teacher Name Role Phone Abdulkadir Montoya MD Primary Care Provider [phone] Reason for Visit * Reason Comments Medication Refill Encounter Details Date Type Department Care Team (Late st Contact Info) Description 11/14/2024 Refill [facility] [place] [address] Abdulkadir Montoya [place] [address] Medication Refill Social History Tobacco Use [...] Date Recorded PHQ-2 Total Score 0 04/04/2023 [facility] [place] of Occupat ional Health - Occupational Stress [...] No 09/02/2023 11:02 AM EDT LATRICE CALL CHRISTIANO documented as of this encounter Mental Status [...] EDT Appointment [facility] MRI [address] [place] [address] Abdulkadir Montoya MD [address] [place] [phone] 02/10/2025 1:30 PM EDT Office Visit [facility] Diabetes [place] [address] [email or web address] [facility] [address] [place] [address] Judith Lomax MD [address] [employer] [facility] [address] [place] [address] documented as of this encounter [...] documented as of this encounter Care Teams Middle School Art Teacher Relationship Specialty Start Date End Date Abdulkadir Montoya MD [address] [place] [phone] PCP - General 06/29/09 documented as of this encounter
--- OUTSIDE RECORDS SUMMARY | 2024-11-25 13:01 | XMS_ITS | Encounter Summary ---
Author Organization [place] [address] Care Team Providers Care Automatic Door Mechanic Name Role Phone Abdulkadir Montoya MD Primary Care Provider Reason for Visit * Reason Onset Date Comments Medication Refill 10/16/2024 Encounter Details Date Type Department Care Team (Late st Contact Info) Description 10/16/2024 Refill [facility] [place] [address] Abdulkadir Montoya MD [place] [address] Medication Refill Social History Tobacco Use [...] Date Recorded PHQ-2 Total Score 0 04/04/2023 [facility] [place] of Occupat ional Health - Occupational Stress [...] Info) Description 11/27/2024 8:00 AM EDT Appointment [facility] [place] MRI [address] [place] [address] Abdulkadir Montoya MD [address] [facility] [address] 02/10/2025 1:30 PM EDT Office Visit [facility] Diabetes [place] 1500 [facility] [address] [place] [address] Judith Lomax MD [address] [facility] [address] [place] [phone] documented as of this encounter Goals Goal Patient Goal Type Associated Problems Recent Progress Patient-Stated? Author Eat better, exercise, reach an ideal body weight General No GroJeffrey garciaelle, CCMA Stay Tobacco Free Lifestyle No GroRula garcia, CCMA documented as of this encounter Visit Diagnoses Not on filedocumented in this encounter Care Teams Automatic Door Mechanic Relationship Specialty Start Date End Date Abdulkadir Montoya MD [place] [facility] [address] PCP - General 06/29/09 documented as of this encounter
--- OUTSIDE RECORDS SUMMARY | 2024-11-25 13:01 | XMS_ITS | Encounter Summary ---
Author Organization [place] [address] Care Team Providers Care Trust Administrative Assistant Name Role Phone Abdulkadir Montoya MD Primary Care Provider [phone] Reason for Visit * Reason Onset Date Comments Medication Refill 10/18/2024 Encounter Details Date Type Department Care Team (Late st Contact Info) Description 10/18/2024 Refill [facility] [place] [address] Abdulkadir Montoya MD [address] [address] Medication Refill Social History Tobacco Use [...] Date Recorded PHQ-2 Total Score 0 04/04/2023 [facility] [place] of Occupat ional Health - Occupational Stress [...] Info) Description 11/27/2024 8:00 AM EDT Appointment [facility] MRI [address] [place] [address] Abdulkadir Montoya MD [address] [place] [phone] 02/10/2025 1:30 PM EDT Office Visit [facility] Diabetes [place] [address] [employer] [facility] [address] [place] [address] Judith Lomax MD [address] [employer] [facility] [address] [place] [address] documented as of this encounter Goals Goal Patient Goal Type Associated Problems Recent Progress Patient-Stated? Author Eat better, exercise, reach an ideal body weight General No Rula Birch, [place] Stay Tobacco Free Lifestyle No Rula Birch CCMA documented as of this encounter Visit Diagnoses Not on filedocumented in this encounter Discontinued Medications Medication Sig Discontinue Reason Start Date End Da te tiZANidine (ZANAFLEX) 4 mg Oral Tablet TAKE 1 TABLET BY MOUTH NIGHTLY NEEDED FOR MUSCLE SPASMS. Reorder 09/18/2024 10/18/2024 documented as of this encounter Care Teams Trust Administrative Assistant Relationship Specialty Start Date End Date Abdulkadir Montoya MD [address] [place] [phone] PCP - General 06/29/09 documented as of this encounter
[2024-11-25] MEDS: PROCHLORPERAZINE 10MG/2ML VIAL 10 MG IV (13:38)
[2024-11-25 13:43] LABS: Microscopic, Urine URINE MICROSCOPIC (MICROSCOPIC)
[2024-11-25 13:46] LABS: Bilirubin,Urine Negative (Negative); Color,Urine YELLOW (Yellow); Glucose,Urine (UA) Negative (Negative); Ketones,Urine Negative (Negative); Leukocyte Esterase,Urine Negative (Negative); PH,Urine 6.0 (5.0-8.5); Protein,Urine Negative (Negative); Specific Gravity, Urine 1.010 (1.005-1.030); Urobilinogen,Urine 0.2 EU/dl (0.2)
[2024-11-25 13:57] LABS: Opiate Screen,Urine Negative ng/ml (<300); Phencyclidine Screen,Urine Negative ng/ml (<25)
[2024-11-25 13:59] LABS: Amphetamine/Metha Screen,Urine Negative ng/ml (<1000); Benzodiazepines Screen,Urine Positive ng/ml (<200)
[2024-11-25 14:00] LABS: Barbiturates Screen,Urine Negative ng/ml (<200)
[2024-11-25] MEDS: DEXAMETHASONE 4MG/ML 1ML VIAL 10 MG IV (14:01)
[2024-11-25] MEDS: KETOROLAC 30MG/ML VIAL 15 MG IV (14:01)
[2024-11-25 14:02] LABS: Methadone Screen,Urine Negative ng/ml (<300)
[2024-11-25 14:13] LABS: Bacteria,Urine Trace /lpf; WBC,Urine Occasional #/hpf (0-3)
[2024-11-25 15:47] LABS: Hematocrit 36.2 % (37.0-47.0); Hemoglobin 11.6 g/dL (12.2-16.2); Immature Granulocytes % 0.4 %; Mean Corpuscular HGB Conc 32.0 g/dL (31.8-35.4); Mean Corpuscular Hemoglobin 26.6 pg (27.0-31.2); Mean Corpuscular Volume 83.0 fl (81-99); Nucleated Red Blood Cells % 0 %; Platelet Count 205 K/mm3 (142-424); Red Blood Count 4.36 M/mm3 (4.20-5.40); Red Cell Distribution Width-SD 45.3 fL; White Blood Count 6.9 K/mm3 (4.8-10.8)
[2024-11-25 15:53] LABS: Magnesium 1.9 mg/dl (1.6-2.3)
[2024-11-25 15:54] LABS: Alanine Aminotransferase 22 U/L (12-78); Albumin Level 3.9 g/dl (3.5-5.0); Albumin/Globulin Ratio 1.6 (1.1-1.8); Alkaline Phosphatase 109 U/L (38-126); Anion Gap 8.1 mEq/L (5-15); Aspartate Amino Transferase 31 U/L (14-36); Bilirubin,Total 0.3 mg/dl (0.2-1.3); Blood Urea Nitrogen 14 mg/dl (7-17); Calcium 9.5 mg/dl (8.4-10.2); Carbon Dioxide 29 mmol/L (22.0-30.0); Chloride 109 mmol/L (98-107); Creatinine Clearance Estimated 78 mL/min (50-200); Creatinine,Serum 0.80 mg/dl (0.52-1.04); Estimated Glomerular Filt Rate 77 ml/min (>60); GFR (African American) 93 ML/MIN (>60); Globulin 2.5 g/dL (1.3-3.2); Glucose 95 mg/dl (74-100); Potassium 4.1 mmoL/L (3.5-5.1); Sodium 142 mmol/L (136-145); Total Protein,Serum 6.4 g/dl (6.3-8.2)
[2024-11-25 16:06] LABS: NT Pro Brain Natriuretic Pep. < 20.0 pg/mL (0-125)
[2024-11-25 16:11] LABS: Troponin I < 0.01 ng/ml (0.00-0.034)
[2024-11-25 16:12] LABS: T4 (Thyroxine) 16.0 ug/dl (5.53-11.0)
[2024-11-25 16:25] LABS: Thyroid Stimulating Hormone 0.29 uIU/mL (0.465-4.68)
--- NOTE | 2024-11-25 16:40 | PC.NURSE ---
anjali collected and sent to lab.
[2024-11-25 17:15] LABS: Troponin I < 0.01 ng/ml (0.00-0.034)
== END 2024-11-25 17:15 | disposition home or self-care (01) ==
PROVIDERS: Physician Assistant; Emergency Provider Student in an Organized Health Care Education/Training Program; PCP Urology
DX: G43.109 Migraine with aura, not intractable, without status migrainosus (principal); R25.1 Tremor, unspecified
CPT/HCPCS: 70450; 80053; 80307; 80320; 81001; 83605; 83735; 83880; 84436; 84443; 84484; 85025; 93005; 96374; 96375; 99285; J0780; J1100; J1200; J1885

== ENCOUNTER 2025-04-22 15:37 | Emergency (ER) | payer BC, SELFPAY ==
--- OUTSIDE RECORDS SUMMARY | 2025-02-23 08:15 | XMS_ITS | Encounter Summary ---
Author Organization [place] [place] [address] Care Team Providers Care Color Dipper Name Role Phone Abdulkadir Montoya MD Primary Care Provider Reason for Visit * Reason Comments Dental Pain Encounter Details Date Type Department Care Team (Late st Contact Info) Description 02/23/2025 8:15 AM EST Telemedicine [facility] Video Visits [address] [place] [address] Daya Bonner, MUD JACK NOZZLEMAN [address] [place], [place] [id number] Oral infection (Primary Dx) Social History Tobacco Use Types Packs/Day Years Used Date Smoking Tobacco: Former Cigarettes 0.5 24 1 - 01/22/1999 Passive Smoke Exposure: Past Smokeless Tobacco: Never Alcohol Use Standard Drinks/Week Comments Never 0 (1 standard drink = 0.6 oz pur e alcohol) Overall Financial Resource Strain (CARDIA) Answe r Date Recorded How hard is it for you to pa y for the very basics like food, housing, medical care, and heating? Not hard at all 04/04/2023 PHQ-2 Answer Date Recorded PHQ-2 Total Score 0 02/18/2025 [facility] - Occupational Stress [...] hearing? Answer Date of Assessment Author No 02/18/2025 1:34 PM Steve Gimenez CCMA * Is the person blind or does he/she have serious difficulty seeing even when wearing glasses? Answer Date of Assessment Author No 02/18/2025 1:34 PM Steve Gimenez CCMA * Does this person have serious difficulty walking or climbing stairs? Answer Date of Assessment Author No 02/18/2025 1:34 PM Steve Gimenez CCMA * Does this person have difficulty dressing or bathing? Answer Date of Assessment Author No 02/18/2025 1:34 PM Steve Gimenez CCMA * Because of a physical, mental or emotional condition, does this person have difficulty doing errands alone such as visiting a doctor's office or shopping? Answer Date of Assessment Author No 02/18/2025 1:34 PM EDT Steve Zelaya CCMA documented as of this encounter Mental Status * Because of a physical, mental or emotional condition, does this person have serious difficulty concentrating, remembering or making decisions? Answer Entry Date Author No 02/18/2025 1:34 PM EDT Steve Zelaya CCMA documented in this encounter Progress Notes * Daya Bonner APRN - 02/23/2025 8:15 AM EST Gisela Kennedy is a 49 y.o. female Chief Complaint: Chief Complaint Patient presents with ??? Dental Pain This virtual health visit is being conducted using a Video Visit (live, interactive video and audio), in accordance with [facility] telehealth laws and policies, and in a private space with a secure platform. Patient has reviewed the terms and conditions of service as part of the registration for today's visit. HISTORY OF PRESENT ILLNESS - SUBJECTIVE Gisela Kennedy is complaining of purulent drainage, pain, swelling, fever/cihlls, inability to open mouth fully which began 1 day(s) ago s/p dental extraction 02/20. Explained to patient that this situation would be better assessed at an in-person visit and recommended the patient be seen at urgent care or ED. Patient is agreeable with plan and will follow up as advised. Appears stableand in no acute distress. Daya Bonner APRN No follow-ups on file. documented in this encounter Plan of Treatment Upcoming Encounters Date Type Department Care Team (Late st Contact Info) Description 05/27/2025 9:30 AM EST Office Visit [facility] [address] [place] [address] Lupillo Ponce APRN [address] [place] [address] 06/09/2025 11:30 AM EST Appointment [facility] [address] [place] [address] Richar Reed, PADylanC [address] [place] [address] 08/11/2025 1:50 PM EDT Office Visit [facility] [address] [facility] [address] [place] [phone] Judith Lomax MD [address] [facility] [address] [place] [address] documented as of this encounter Goals Goal Patient Goal Type Associated Problems Recent Progress Patient-Stated? Author Eat better, exercise, reach an ideal body weight General No Rula Birch CCMA Stay Tobacco Free Lifestyle No Rula Birch CCMA documented as of this encounter Visit Diagnoses Diagnosis Oral infection- Primary Cellulitis and abscess of oral soft tissues documented in this encounter Care Teams Color Dipper Relationship Specialty Start Date End Date Abdulkadir Montoya MD [employer] [place] [phone] PCP - General 06/29/09 documented as of this encounter
--- OUTSIDE RECORDS SUMMARY | 2025-02-23 10:30 | XMS_ITS | Encounter Summary ---
Author Organization [facility] [place] [place] [address] Care Team Providers Care Continuity Tester Name Role Phone Abdulkadir Montoya MD Primary Care Provider [phone] Reason for Visit * Reason Comments Dental Problem lower left molar pul led on Monday, pain in jaw, swollen tongue, x monday Encounter Details Date Type Department Care Team (Late st Contact Info) Description 02/23/2025 10:30 AM EST [facility] Visit [facility] [place] [phone] Amelia Emmanuel APRN [address] [place] [address] Dental infection (Primary Dx); Gingival erythema Social History Tobacco Use Types Packs/Day Years [...] Date Recorded PHQ-2 Total Score 0 02/18/2025 [facility] - Occupational Stress [...] Sign Reading Time Taken Comments Blood Pressure 114/64 02/23/2025 10:26 AM EST Pulse 68 02/23/2025 10:26 AM EST Temperature 36.6 C (97.8 F) 02/23/2025 10:26 AM EST Respiratory Rate 20 02/23/2025 10:2 6 AM EST Oxygen Saturation 96% 02/23/2025 10: 26 AM EST Inhaled Oxygen Concentration - - Weight 158.4 kg (349 lb 3.2 oz) 025 10:26 AM EST Height 165.1 cm (5' 5 ) 02/23/2025 10:2 6 AM EST Body Mass Index 58.11 02/23/2025 10:26 AM EST documented in this encounter Functional Status * [...] No 02/18/2025 1:34 PM Steve Gimenez CCMA documented as of this encounter Mental Status * Because of a physical, mental or emotional condition, does this person have serious difficulty concentrating, remembering or making decisions? Answer Entry Date Author No 02/18/2025 1:34 PM Steve Gimenez CCMA documented in this encounter Ordered Prescriptions Prescription Sig Dispense Quantity Refills Last Filled Start Date End Date chlorhexidine (PERIDEX) 0.12 % MM MouthwashIndicatio ns:Dental infection Take 15 mL by mouth 3 times daily for 14 days. 630 mL 02/23/2025 5 clindamycin (CLEOCIN) 150 mg Oral CapsuleIndications :Dental infection Take 3 Capsules by mouth every 8 hours for 10 days. 90 Capsule 02/23/2025 5 documented in this encounter Progress Notes * Amelia Emmanuel APRN - 02/23/2025 10:30 AM EST Images from the original note were not included. Subjective Chief Complaint Patient presents with Dental Problem lower left molar pulled on Monday, pain in jaw, swollen tongue, x monday Gisela Kennedy is a 49 y.o. female who presents to Urgent Care for evaluation of pain along left lower molar. She was recently seen by her dentist last week and had left lower molar extracted on 02/20/25. The following day she had increased pain along the extraction site associated with pain to left jaw and painful lymph nodes to left neck. She denies difficulty swallowing but states I can feel my tongue swollen. Denies drooling, difficulty maintaining oral secretions, change in voice quality or shortness of breath. Endorses pain with opening mouth/jaw. Denies fever; endorses chills and itching throughout body. Denies rash. She has taken Hydrocodone-acetaminophen (last dose at 7am) with some relief of pain. Review of Systems Constitutional: Positive for chills. Negative for fever. HENT: Positive for dental problem and facial swelling. Negative for drooling and trouble swallowing. Gastrointestinal: Positive for nausea. Negative for vomiting. Problem List[1] Medications Taking[2] Allergies[3] Social Social History[4] Family History[5] Immunization History Administered Date(s) Administered Influenza Seasonal Injectable PF 02/18/2025 Influenza Vaccine Quadrivalent 02/28/2018 Influenza Vaccine, Unspecified Formulation 01/25/2013 MMR 12/24/1989 Pneumococcal Conjugate Vaccine 20 Valent 02/18/2025 Pneumococcal Polysaccharide 23 Valent 02/28/2018 Polio, Unspecified Formulation 12/13/1985 Td, Unspecified Formulation 12/13/1985, 06/22/1996 Tdap 10/20/2014 Patient Care Team: Abdulkadir Montoya MD as PCP - General Objective BP 114/64 (BP Location: Left arm, Patient Position: Sitting) Pulse 68 Temp 97.8 ??F (36.6 ??C) (Oral) Resp 20 Ht 5' 5 (1.651 m) Wt (!) 349 lb 3.2 oz (158.4 kg) LMP 10/15/2018 (LMP Unknown) SpO2 96% No BMI 58.11 kg/m?? Physical Exam Vitals and nursing note reviewed. Constitutional: General: She is awake. She is not in acute distress. Appearance: Normal appearance. She is well-developed and well-groomed. She is obese. She is not ill-appearing, toxic-appearing or diaphoretic. HENT: Head: Normocephalic and atraumatic. Right Ear: External ear normal. Left Ear: External ear normal. Mouth/Throat: Mouth: Mucous membranes are moist. Dentition: Dental tenderness and gingival swelling present. Comments: Gingival erythema and edema surrounding recent left lower molar extraction site. There jyoti small amount of white/yellow drainage overlying the site. No obvious blood clot at the extractionsite. Significantly tender to touch Neurological: Mental Status: She is alert and oriented to person, place, and time. Psychiatric: Behavior: Behavior is cooperative. No results found for this visit on 02/23/25. Assessment and Plan Gisela Kennedy was seen today for dental problem. Diagnoses and all orders for this visit: Dental infection - clindamycin (CLEOCIN) 150 mg Oral Capsule; Take 3 Capsules by mouth every 8 hours for 10 days. - chlorhexidine (PERIDEX) 0.12 % MM Mouthwash; Take 15 mL by mouth 3 times daily for 14 days. Gingival erythema 49y.o. female who presents to Urgent Care for evaluation of pain along left lower molar. She was recently seen by her dentist last week and had left lower molar extracted on 02/20/25. The following day she had increased pain along the extraction site associated with pain to left jaw and painful lymph nodes to left neck. She denies difficulty swallowing but states I can feel my tongue swollen. Denies drooling, difficulty maintaining oral secretions, change in voice quality or shortness of breath. Endorses pain with opening mouth/jaw. Denies fever; endorses chills and itching throughout body.Vital signs reassuring as she is afebrile and not tachycardic. Hemodynamically stable in no acute re spiratory distress. Physical exam reveals gingival erythema and edema surrounding recent left lowermolar extraction site. There is a small amount of white/yellow drainage overlying the site. No obvious blood clot at the extraction site. Significantly tender to touch. Differential diagnosis includes dental infection versus dry socket. She was prescribed clindamycin 450 mg TID x 10 days and chlorhexidine mouthwash TID. She was instructed to follow-up with her dentist as soon as possible for reevaluation. Encouraged to use OTC ibuprofen, Tylenol or prescribed hydrocodone tablets as needed for pain. Recommended application of cold compress to cheek for comfort and to reduce swelling. Instructed to go to ED immediately for any worsening or severe symptoms. Given instructions on conservative care for this condition and signs and symptoms to follow-up on immediately. Return if symptoms worsen or fail to improve. 1. Patient has been instructed that if any acute problems worsen or fail to improve that they should contact urgent care or covering physician. If acutely worse, unable to reach our physicians (and is an emergency) go to emergency room. 2. New medications, if ordered, have been reviewed and possible side effects discussed with patienttoday. 3. Patient expressed verbal understanding of above assessment and plan. All questions answered at this time. 4. Education provided regarding the care plan and instructions listed on the After Visit Summary [AVS] for today's visit. Full understanding of the care plan and instructions given on the AVS for today's visit was verbalized. 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 Situational anxiety Class 3 severe obesity due to excess calories with serious comorbidity and body mass index (BMI) of50.0 to 59.9 in adult ([facility]) Medication management Stasis dermatitis of both legs Prediabetes Gastroesophageal reflux disease without esophagitis Mood disorder Peripheral neuropathy RLS (restless legs syndrome) Mild intermittent asthma with acute exacerbation Female cystocele Rectocele Stress incontinence in female Seizure-like activity ([facility]) [2] Outpatient Medications Marked as Taking for the 02/23/25 encounter (Office Visit) with Amelia Emmanuel APRN Medication Sig Dispense Refill albuterol-budesonide (AIRSUPRA) 90-80 mcg/actuation Inhl HFA Aerosol Inhaler Inhale 2 Puffs into the lungs every 6 hours as needed. 10.7 g 1 albuterol-ipratropium (DUO-NEB) 3 mg-0.5 mg(2.5 mg base)/3 mL Inhl Solution for Nebulization Take 3mL by nebulization 0800, 1200, 1600, 2000. 60 Each 0 cetirizine (ZYRTEC) 10 mg Oral Tablet Take 10 mg by mouth daily. Indications: seasonal runny nose EPINEPHrine (EPIPEN) 0.3 mg/0.3 mL Inj Auto-Injector Inject 0.3 mL into the muscle as needed for Anaphylaxis. 2 Each 0 gabapentin (NEURONTIN) 400 mg Oral Capsule Take 1 Capsule by mouth 3 times daily for 90 days. 90 Capsule 2 HYDROcodone-acetaminophen (NORCO) 5-325 mg Oral Tablet Take 1 Tablet by mouth every 6 hours as needed. for pain hydroxychloroquine (PLAQUENIL) 200 mg Oral Tablet TAKE 1 TABLET BY MOUTH EVERY DAY 30 Tablet 5 LEVOthyroxine (SYNTHROID) 175 mcg Oral Tablet Take 1 Tablet by mouth daily. 90 Tablet 3 omeprazole (PRILOSEC) 40 mg Oral Capsule, Delayed Release(E.C.) Take 1 Capsule by mouth daily. 90 Capsule 3 PARoxetine (PAXIL) 20 mg Oral Tablet TAKE 1 TABLET BY MOUTH EVERY DAY 30 Tablet 0 rizatriptan (MAXALT) 10 mg Oral Tablet TAKE 1 TABLET BY MOUTH DAILY NEEDED (HEADACHE) FOR UP TO 30 DAYS. MAY REPEAT IN 2 HOURS IF NEEDED rOPINIRole (REQUIP) 1 mg Oral Tablet TAKE 1 TABLET BY MOUTH EVERY DAY AT NIGHT 90 Tablet 1 tiZANidine (ZANAFLEX) 4 mg Oral Tablet Take 1 Tablet by mouth nightly as needed for Muscle spasms. 30 Tablet 0 UNABLE TO FIND Inject 10 mg under the skin once a week. Med Name: compounded GLP-1 RA Tirzepatide [3] Allergies Allergen Reactions Amoxil [Amoxicillin] Anaphylaxis Reaction to Augmentin, but patient concerned about taking Amoxil. Augmentin [Amoxicillin-Pot Clavulanate] Anaphylaxis Cefazolin Itching and Rash Pt also had an asthma attack Metronidazole Shortness Of Breath and Myalgia Relafen [Nabumetone] Rash [4] Social History Socioeconomic History Marital status: Spouse name: None Number of children: None Years of education: None Highest education level: None Tobacco Use Smoking status: Former Current packs/day: 0.00 Average packs/day: 0.5 packs/day for 24.0 years (12.0 ttl pk-yrs) Types: Cigarettes Start date: 01/22/1991 Quit date: 01/22/1999 Years since quittin.1 Passive exposure: Past Smokeless tobacco: Never Vaping Use Vaping status: Never Used Substance and Sexual Activity Alcohol use: Never Drug use: Never Sexual activity: Yes Partners: Male control/protection: Surgical [...] min Stress: No Stress Concern Present (04/06/2023) [facility] - Occupational Stress Questionnaire Feeling of Stress : Not at all [5] Family History Problem Relation Age of Onset Arthritis Mother Other (hyperparathyroidism) Mother Diabetes Father High Blood Pressure Father Heart Disease Father Kidney Disease Father High Cholesterol Father Stroke Father Asthma Father Hypertension Father 40 - 49 Thyroid Disease Brother No Known Problems Brother No Known Problems Brother No Known Problems Brother Heart Disease Maternal Grandmother Diabetes Paternal Grandmother Heart Disease Paternal Grandmother High Blood Pressure Paternal Grandmother Diabetes Paternal Uncle High Cholesterol Paternal Uncle Heart Disease Paternal Uncle High Blood Pressure Paternal Uncle Anesth Problems Neg Hx documented in this encounter Miscellaneous Notes * Patient Instructions - Amelia Emmanuel APRN - 02/23/2025 10:30 AM EST Please call and follow up with your dentist as soon as possible for reevaluation May use OTC ibuprofen and Tylenol as needed for pain May apply cold compress to cheek as needed for comfort and to reduce swelling Would recommend eating more softer foods due to dental pain Go to ED for any worsening or severe symptoms documented in this encounter Plan of Treatment Upcoming Encounters Date Type Department Care Team (Late st Contact Info) Description 05/27/2025 9:30 AM EST Office Visit [facility] [address] [place] [address] Lupillo Ponce APRN [address] [place] [address] 06/09/2025 11:30 AM EST Appointment [facility] [address] [place] [address] Richar Reed PA-C [address] [facility] [place] [address] 08/11/2025 1:50 PM EDT Office Visit [facility] [place] [address] [facility] [address] [place] [phone] Judith Lomax MD [address] [facility] [address] [place] [address] documented as of this encounter Goals Goal Patient Goal Type Associated Problems Recent Progress Patient-Stated? Author Eat better, exercise, reach an ideal body weight General No GroRula garcia CCMA Stay Tobacco Free Lifestyle No Rula Birch CCMA documented as of this encounter Visit Diagnoses Diagnosis Dental infection- Primary Acute apical periodontitis of pulpal origin Gingival erythema Unspecified gingival and periodontal disease documented in this encounter Historical Medications * This list may reflect changes made after this encounter. HYDROcodone-aceta minophen (NORCO) 5-325 mg Oral Tablet Take 1 Tablet by mouth every 6 hours as needed. for pain 02/20/2025 04/04/2025 rizatriptan (MAXALT) 10 mg Oral Tablet TAKE 1 TABLET BY MOUTH DAILY NEEDED (HEADACHE) FOR UP TO 30 DAYS. MAY REPEAT IN 2 HOURS IF NEEDED 01/22/2025 04/04/2025 added in this encounter Care Teams Continuity Tester Relationship Specialty Start Date End Date Abdulkadir Montoya MD [address] [place] [address] PCP - General 06/29/09 documented as of this encounter
--- OUTSIDE RECORDS SUMMARY | 2025-03-27 13:30 | XMS_ITS | Encounter Summary ---
Author Organization [facility] Address [address] [place] [address] Care Team Providers Care Hydro Generation Supervisor Name Role Phone Abdulkadir Montoya MD Primary Care Provider [phone] Reason for Visit * Reason Comments Pain Encounter Details Date Type Department Care Team (Latest Contact Info) Description 03/27/2025 1:30 PM EST Office Visit [facility] [address] [facility] [address] [place], [place] [phone] Christina Teran PA [address] [place] [id number] Osteoarthritis of left knee, unspecified osteoarthritis type (Primary Dx); Acute pain of left knee Social History Tobacco Use Types Packs/Day Years [...] Date Recorded PHQ-2 Total Score 0 02/18/2025 [facility] [place] of Occupat ional Health - Occupational Stress [...] Taken Comments Blood Pressure - - Pulse - - Temperature - - Respiratory Rate - - Oxygen Saturation - - Inhaled Oxygen Concentration - - Weight 160.5 kg (353 lb 12. 8 oz) 03/27/2025 2:24 PM EST Height 166.4 cm (5' 5.5 ) 03/27/2025 2: 24 PM EST with shoes on Body Mass Index 57.98 03/27/2025 2:24 PM EST documented in this encounter Functional Status * Is the person deaf or does he/she have serious difficulty hearing? Answer Date of Assessment Author No 02/18/2025 1:34 PM EDT Steve Zelaya CCMA * Is the person blind or does he/she have serious difficulty seeing even when wearing glasses? Answer Date of Assessment Author No 02/18/2025 1:34 PM EDSteve Manrique CCMA * Does this person have serious difficulty walking or climbing stairs? Answer Date of Assessment Author No 02/18/2025 1:34 PM EDSteve Manrique CCMA * Does this person have difficulty dressing or bathing? Answer Date of Assessment Author No 02/18/2025 1:34 PM EDSteve Manrique CCMA * Because of a physical, mental or emotional condition, does this person have difficulty doing errands alone such as visiting a doctor's office or shopping? Answer Date of Assessment Author No 02/18/2025 1:34 PM EDSteve Manrique CCMA documented as of this encounter Mental Status * Because of a physical, mental or emotional condition, does this person have serious difficulty concentrating, remembering or making decisions? Answer Entry Date Author No 02/18/2025 1:34 PM Steve Gimenez CCMA documented in this encounter Ordered Prescriptions Prescription Sig Dispense Quantity Refills Last Filled Start Date End Date methylPREDNISolone (MEDROL DOSPACK) 4 mg Oral Tablets, Dose PackIndications:Acu te pain of left knee,Osteoarthritis of left knee, unspecified osteoarthritis type follow package directions 21 Tablet 03/27/2025 documented in this encounter Progress Notes * Christina Teran PA - 03/27/2025 1:30 PM EST Images from the original note were not included. Chief Complaint: Pain of the Left Knee History of Present Illness: Gisela Kennedy is a 49 y.o. female here regarding left knee pain for the past few weeks.Patient denies known injury or trauma. Patient states she knows she has osteoarthritis in her knee as she received a knee injection by Dr. Garcia about 2 years ago. She states the shot helped up until the past few months. She states describing her pain is more of a constant ache. She locates her pain to the anterior and posterior aspect of her knee. Medical History: Patient's medications, allergies, past medical, surgical, social and family histories were reviewedand updated as appropriate. Review of Systems: Constitutional: negative: negative Cardiovascular: negative Musculoskeletal:negative except for Pain of the Left Knee Relevant review of systems reviewed and available in the patient's chart in media tab Vital Signs: Vitals: 03/27/25 1424 Weight: (!) 353 lb 12.8 oz (160.5 kg) Height: 5' 5.5 (1.664 m) General Exam: Constitutional: Patient is adequately groomed with no evidence of malnutrition Mental Status: The patient is oriented to time, place and person. The patient's mood and affect areappropriate. Vascular: Examination reveals no swelling or calf tenderness. Peripheral pulses are palpable and 2+. left Knee Examination Inspection: No gross deformities noted. No erythema or ecchymosis. Skin is intact. Distal neurovascular exam is intact. No effusion noted. Strength: Able to do SLR. HF 5/5, Quad 5/5, HS 5/5, GS 5/5, TA 5/5, EHL 5/5 symmetric bilaterally Skin: There are no rashes, ulcerations or lesions. ROM: 0-110 positive tenderness Medial joint line, Lateral joint line, Medial and lateral patella facets negative tenderness Patella tendon, Tibia tubercle positive grind negative anterior drawer, posterior drawer, Yudy's, varus stress test, valgus stress test Gait: Examination of the gait, showed that the patient walks heel-toe however limp favoring left LE X-RAYS: 3 views weightbearing AP, lateral. PA and sunrise of the left knee were obtained at [facility] 03/27/2025 and independently reviewed by me. Severe end stage OA to medial compartments and severe joint space narrowing to patellofemoral compartment. No evidence of fracture or dislocation. Assessment : Acute exacerbation of left knee OA Impression: Encounter Diagnoses Name Primary? Acute pain of left knee Osteoarthritis of left knee, unspecified osteoarthritis type Yes Office Procedures: Orders Placed This Encounter Procedures XR KNEE LEFT 3V STANDING Standing Status: Future Number of Occurrences: 1 Expiration Date: 03/27/2026 Release to Patient: Immediate Treatment Plan: 1. Medications - recommended alternating heat/ice, heat prior to exercises and ice after and Medrol 2. PT - n/a 3. Further imaging - none 4. Intervention- hinge knee brace 5. Follow up - Dr. Garcia team Daisha Teran PA-C General Orthopedics Signature: RK MOODY Date: 03/27/2025 Disclaimer: Parts of this note may have been created by a chart review, combined by taking my own patient history. The patient was physically seen and examined by myself, including a personal review of images, tests, and formation of the impression and plan. Please also note that portions of this chart were generated using [employer] dictation software. Although every effort was made to ensure the accuracy of this automated sea foam kiss maker, some errors in sea foam kiss maker may have occurred. documented in this encounter Plan of Treatment Upcoming Encounters Date Type Department Care Team (Late st Contact Info) Description 05/27/2025 9:30 AM EST Office Visit [facility] [address] [place] [address] Lupillo Ponce APRN [address] [place] [address] 06/09/2025 11:30 AM EST Appointment [facility] [address] [facility] [place] [address] Richar Reed PA-C [address] [phone] 08/11/2025 1:50 PM EDT Office Visit [facility] Diabetes [place] [address] [employer] [address] [phone] Judith Lomax MD [address] [phone] documented as of this encounter Goals Goal Patient Goal Type Associated Problems Recent Progress Patient-Stated? Author Eat better, exercise, reach an ideal body weight General No Rula Birch CCMA Stay Tobacco Free Lifestyle No Rula Birch CCMA documented as of this encounter Results * XR KNEE LEFT AP LATERAL AND SUNRISE STANDING (03/27/2025 2:23 PM EST) Narrative Osvaldo Ren - 03/27/2025 2:23 PM EST Please see physician's note from office encounter for x-ray imaging result Christina BECKMAN IMG DIAGNOSTIC IMAGING ORDER TASHA Final Result documented in this encounter Visit Diagnoses Diagnosis Osteoarthritis of left knee, unspecified osteoarthritis type- Primary Acute pain of left knee Acute pain of left knee documented in this encounter Historical Medications * This list may reflect changes made after this encounter. chlorhexidine (PERIDEX) 0.12 % MM Mouthwash Take 15 mL by mouth 3 times daily. 02/23/2025 added in this encounter Care Teams Hydro Generation Supervisor Relationship Specialty Start Date End Date Abdulkadir Montoya MD [address] [place] [phone] PCP - General 06/29/09 documented as of this encounter
--- OUTSIDE RECORDS SUMMARY | 2025-03-27 13:45 | XMS_ITS | Encounter Summary ---
Author Organization [facility] Address [address] [place] [address] Care Team Providers Care Reexaminer Name Role Phone Abdulkadir Montoya MD Primary Care Provider [phone] Encounter Details Date Type Department Care Team (Latest Contact Info) Description 03/27/2025 1:45 PM EST Ancillary Procedure [facility] [address] [facility] [address] [place], [place] [phone] Christina Teran PA [address] [place] [address] Acute pain of left knee Social History [...] Date Recorded PHQ-2 Total Score 0 02/18/2025 [facility] [place] of Occupat ional [facility] - Occupational Stress Questionnaire Answer Date Recorded [...] 1:34 PM EDT Steve Zelaya CCMA * Does this person have serious difficulty walking or climbing stairs? Answer Date of Assessment Author No 02/18/2025 1:34 PM Steve Gimenez CCMA * Does this person have difficulty dressing or bathing? Answer Date of Assessment Author No 02/18/2025 1:34 PM EDT Steve Zelaya CCMA * Because of a physical, mental [...] Steve Zelaya CCMA documented in this encounter Plan of Treatment Upcoming Encounters Date Type Department Care Team (Late st Contact Info) Description 05/27/2025 9:30 AM EST Office Visit [facility] [address] [place], [place] [phone] Lupillo Ponce, EMELY [address] [place], [place] [phone] 06/09/2025 11:30 AM EST Appointment [place] [address] [facility] [place] [address] Richar Reed PA-C [address] [address] 08/11/2025 1:50 PM EDT [facility] [address] [facility] [address] [place] [phone] Judith Lomax MD [address] [phone] documented as of this encounter Goals Goal Patient Goal Type Associated Problems Recent Progress Patient-Stated? Author Eat better, exercise, reach an ideal body weight General No Rula Birch CCMA Stay Tobacco Free Lifestyle No Rula Birch CCMA documented as of this encounter Procedures Procedure Name Priority Date/Time Associated Diagnosis Comments XR KNEE LEFT AP LATERAL AND SUNRISE STANDING Routine 03/27/2025 2:23 PM EST Acute pain of left knee documented in this encounter Results * XR KNEE LEFT AP LATERAL AND SUNRISE STANDING (03/27/2025 2:23 PM EST) Narrative Halinauser, Audit - 03/27/2025 2:23 PM EST Please see physician's note from office encounter for x-ray imaging result Christina BECKMAN IMG DIAGNOSTIC IMAGING ORDER TASHA Final Result documented in this encounter Visit Diagnoses Diagnosis Acute pain of left knee documented in this encounter Care Teams Reexaminer Relationship Specialty Start Date End Date Abdulkadir Montoya MD [address] [place], [place] [phone] PCP - General 06/29/09 documented as of this encounter
--- OUTSIDE RECORDS SUMMARY | 2025-04-04 09:45 | XMS_ITS | Encounter Summary ---
Author Organization [facility] [place] [place] [address] Care Team Providers Care Fx Artist Name Role Phone Abdulkadir Montoya MD Primary Care Provider [phone] Reason for Visit * Reason Comments Cough Generalized Body Aches Headache Encounter Details Date Type Department Care Team (Late st Contact Info) Description 04/04/2025 9:45 AM EST Office Visit [facility] [address] [place] [address] Arminda Wilson, MEDICAL GENETICIST [address] [place] [address] URI, acute (Primary Dx); Acute cough; Immunosuppressed status Social History Tobacco Use Types Packs/Day Years [...] Date Recorded PHQ-2 Total Score 0 02/18/2025 [facility] [place] of Occupat ional Health - Occupational Stress [...] Sign Reading Time Taken Comments Blood Pressure 112/68 04/04/2025 9:35 AM EST Pulse 94 04/04/2025 9:35 AM EST Temperature 36.6 C (97.8 F) 04/04/2025 9:35 AM EST Respiratory Rate 18 04/04/2025 9:35 AM EST Oxygen Saturation 99% 04/04/2025 9:35 AM EST Inhaled Oxygen Concentration - - Weight 157.4 kg (347 lb) 04/04/2025 9:35 AM EST Height - - Body Mass Index 56.87 03/27/2025 2:24 PM EST documented in this [...] Refills Last Filled Start Date End Date benzonatate (TESSALON) 200 mg Oral CapsuleIndications :URI, acute Take 1 Capsule by mouth 3 times daily as needed for Cough for up to 10 days. 30 Capsule 04/04/2025 5 azithromycin (ZITHROMAX) 250 mg Oral TabletIndications: URI, acute Take 2 tablets (500 mg) on Day 1, followed by 1 tablet (250 mg) once daily on Days 2 through 5. 6 Tablet 04/04/2025 5 documented in this encounter Progress Notes * Arminda Wilson APRN - 04/04/2025 9:45 AM EST Assessment & Plan Acute cough Orders: POCT CEPHEID SARS COV-2 RNA + FLU A/B + RSV Immunosuppressed status To hold plaquenil while on zpak and until acute respiratory symptoms improve. URI, acute As above. No distress. Vitals stable. Lungs clear. Medications as prescribed. Encouraged use of OTCmedications such as decongestants and antipyretics for symptom relief. Cool mist humidifier at night. Encouraged hydration, fever/pain control with followup for persistent or worsening sx. Orders: azithromycin (ZITHROMAX) 250 mg Oral Tablet; Take 2 tablets (500 mg) on Day 1, followed by 1 tablet(250 mg) once daily on Days 2 through 5. benzonatate (TESSALON) 200 mg Oral Capsule; Take 1 Capsule by mouth 3 times daily as needed for Cough for up to 10 days. Progress Note: Vitals: 04/04/25 0935 BP: 112/68 Pulse: 94 Resp: 18 Temp: 97.8 ??F (36.6 ??C) TempSrc: Forehead SpO2: 99% Weight: (!) 347 lb (157.4 kg) Body mass index is 56.87 kg/m??. SUBJECTIVE: Chief Complaint Patient presents with Cough Generalized Body Aches Headache HPI: Patient presents to the office today for evaluation of 2-3 day hx of nasal congestion PND, sore throat, cough, body aches and increasing fatigue. Unsure of fever. Immunosuppressed. Just completed oral steroids for knee pain. Review of Systems Constitutional: Positive for fatigue. HENT: Positive for congestion and postnasal drip. Respiratory: Positive for cough. Negative for shortness of breath and wheezing. Cardiovascular: Negative for chest pain, palpitations and leg swelling. Gastrointestinal: Negative for abdominal pain. Musculoskeletal: Positive for arthralgias and myalgias. Allergic/Immunologic: Positive for immunocompromised state. Hematological: Negative for adenopathy. Does not bruise/bleed easily. OBJECTIVE: Results for orders placed or performed in visit on 04/04/25 POCT CEPHEID SARS COV-2 RNA + FLU A/B + RSV Result Value Ref Range SARS COV-2 RNA Negative Negative, Invalid INFLUENZA A Negative Negative, Invalid INFLUENZA B Negative Negative, Invalid RSV Negative Negative, Invalid Physical Exam Constitutional: Appearance: She is obese. HENT: Head: Normocephalic and atraumatic. Right Ear: Tympanic membrane normal. Left Ear: Tympanic membrane normal. Nose: Congestion present. Mouth/Throat: Pharynx: Posterior oropharyngeal erythema present. Cardiovascular: Rate and Rhythm: Normal rate and regular rhythm. Heart sounds: Normal heart sounds. Pulmonary: Effort: Pulmonary effort is normal. Breath sounds: Normal breath sounds. Musculoskeletal: Cervical back: Normal range of motion. Neurological: Mental Status: She is alert and oriented to person, place, and time. Psychiatric: Mood and Affect: Mood normal. Thought Content: Thought content normal. documented in this encounter Plan of Treatment Upcoming Encounters Date Type Department Care Team (Late st Contact Info) Description 05/27/2025 9:30 AM EST Office Visit [facility] [address] [place], [place] [phone] Lupillo Ponce APRN [address] [place], [place] [phone] 06/09/2025 11:30 AM EST Appointment [place] [address] [facility] [place] [address] Richar Reed PA-C [address] [address] 08/11/2025 1:50 PM EDT Office Visit [facility] Diabetes [place] [address] [address] Judith Lomax MD [address] [facility] [address] [place] [phone] documented as of this encounter Goals Goal Patient Goal Type Associated Problems Recent Progress Patient-Stated? Author Eat better, exercise, reach an ideal body weight General No GroRula garcia, CCMA Stay Tobacco Free Lifestyle No Rula Birch CCMA documented as of this encounter Procedures Procedure Name Priority Date/Time Associated Diagnosis Comments POCT CEPHEID SARS COV-2 RNA + FLU A/B + RSV Routine 04/04/2025 10:31 AM EST Acute cough documented in this encounter Results * POCT CEPHEID SARS COV-2 RNA + FLU A/B + RSV (04/04/2025 10:31 AM EST) SARS COV-2 RNA Negative Negative, Invalid [facility] INFLUENZA A Negative Negative, Invalid SEP OFFICE INFLUENZA B Negative Negative, Invalid SEP OFFICE RSV Negative Negative, Invalid SEP OFFICE 04/04/2025 10:3 1 AM EST Arminda Wilson MEDICAL GENETICIST POINT OF CARE TEST ORDERABL ES Final Result SEP OFFICE documented in this encounter Visit Diagnoses Diagnosis URI, acute- Primary Acute upper respiratory infections of unspecified site Acute cough Immunosuppressed status Unspecified disorder of immune mechanism documented in this encounter Discontinued Medications Medication Sig Discontinue Reason Start Date End Da te HYDROcodone-acetaminop hen (NORCO) 5-325 mg Oral Tablet Take 1 Tablet by mouth every 6 hours as needed. for pain DELETE-Therapy completed 02/20/2025 04/04/2025 rizatriptan (MAXALT) 10 mg Oral Tablet TAKE 1 TABLET BY MOUTH DAILY NEEDED (HEADACHE) FOR UP TO 30 DAYS. MAY REPEAT IN 2 HOURS IF NEEDED Patient Reported not taking medication 01/22/2025 04/04/2025 documented as of this encounter Care Teams Fx Artist Relationship Specialty Start Date End Date Abdulkadir Montoya MD [address] [place] [phone] PCP - General 06/29/09 documented as of this encounter
--- OUTSIDE RECORDS SUMMARY | 2025-04-09 14:45 | XMS_ITS | Encounter Summary ---
Author Organization [facility] Address [address] [place] [address] Care Team Providers Care Forensic Nurse Name Role Phone Abdulkadir Montoya MD Primary Care Provider [phone] Reason for Visit * Reason Comments Pain Encounter Details Date Type Department Care Team (Late st Contact Info) Description 04/09/2025 2:45 PM EST [facility] [address] [address] Kendall Garcia MD [address] [address] Osteoarthritis of left knee, unspecified osteoarthritis type (Primary Dx) Social History Tobacco Use Types [...] Date Recorded PHQ-2 Total Score 0 02/18/2025 [facility] [place] of Occupat ional Health - Occupational Stress [...] - Inhaled Oxygen Concentration - - Weight 157.4 kg (347 lb) 04/09/2025 2:26 PM EST Height 165.1 cm (5' 5 ) 04/09/2025 2:26 PM EST Body Mass Index 57.74 04/09/2025 2:26 PM EST documented in this encounter Functional Status * Is the person deaf or does he/she have serious difficulty hearing? Answer Date of Assessment Author No 02/18/2025 1:34 PM EDT Connie Zelaya CCMA * Is the person blind or does he/she have serious difficulty seeing even when wearing glasses? Answer Date of Assessment Author No 02/18/2025 1:34 PM EDT Connie Zelaya CCMA * Does this person have serious difficulty walking or climbing stairs? Answer Date of Assessment Author No 02/18/2025 1:34 PM EDT Garcia Connie eulalio Anderson CCMConnie * Does this person have difficulty dressing or bathing? Answer Date of Assessment Author No 02/18/2025 1:34 PM EDT Connie Zelayaconnie Anderson BETY * Because of a physical, mental or emotional condition, does this person have difficulty doing errands alone such as visiting a doctor's office or shopping? Answer Date of Assessment Author No 02/18/2025 1:34 PM EDT Connie Zelayaconnie Anderson BETY documented as of this encounter Mental Status * Because of a physical, mental or emotional condition, does this person have serious difficulty concentrating, remembering or making decisions? Answer Entry Date Author No 02/18/2025 1:34 PM EDT Connie Zelaya BETY documented in this encounter Progress Notes * Kendall Garcia MD - 04/09/2025 2:45 PM EST Images from the original note were not included. Lesvia Klein APRN/ Orthopaedic Surgery/Sports Medicine [address] [place] [address] Patient Name: Gisela Kennedy Date of : 1975 Primary Care Physician: Abdulkadir Montoya MD DATE OF VISIT: 04/09/2025 This patient was seen in consultation with Dr Garcia today. I am acting as a scribe. Chief Complaint: Pain of the Left Knee History of Present Illness: Gisela Kennedy is a 49 y.o. female comes in today for evaluation of her left knee. We saw her last in 2022. She had some known degenerative joint disease. We have been doing cortisone as well as gel injections but she has found both of those to be limited in their benefit. She would liketo move forward with surgical intervention given her lack of improvement. She was seen in the walk-in clinic as well recently. She continues to note limitations with her activities of daily living. Medical History: Past Medical History[1] Review of Systems: Pertinent items are noted in HPI Review of systems reviewed from Patient History Form is available in the patient's chart. General Exam: Patient is alert and oriented, adequately groomed in no acute distress. BMI: Body mass index is 57.74 kg/m??. at the last time of measurement. Knee Examination: Inspection: The knee has no effusion, however; there is general synovitis. Palpation: Pain is noted to the medial and patellofemoral region, no real lateral joint line tenderness. Range of Motion: Is essentially full. Anterior posterior drawer and Denia's are negative varus and valgus stressing reveal no instability. There is some crepitance/clicking upon range of motion. There is no mechanical locking noted. Strength: Is weakened with resistive testing, tightness in hamstring area. Skin: There are no abrasions, rashes, ulcerations or lesions. Distally there is no swelling, mild venous trophic changes associated with normal aging. Gait: Is mildly antalgic. Radiology: X-rays obtained in the walk-in clinic on 03/27/2025 and reviewed in office: 3 Views standing Location: Left knee Impression: End-stage varus degenerative joint disease as well as some advanced patellofemoral changes. Diagnosis: Left knee varus degenerative joint disease Plan: At this point she would like to move forward with total knee arthroplasty. Will have her visit Dr. Rea's team. Will have her continue doing her functional exercises and icing we will see her back as needed We have discussed the nature of the diagnosis and treatment options with the patient today. Ample time was given for discussion and questions about different treatment strategies and the patient is in full agreement with our treatment plan. All decisions were made with the patient's full understanding. 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 Take extra care with the injured areafor several months. Ultimately, the patient or the family assume risk of return to play/work from the injury. The patient is advise to call with any issues or concerns in the future. Lesvia Klein APRN Parts of this note may have been created by a chart review, combined by taking my own patient history. The patient was physically seen and examined by myself, including a personal review of images, tests, and formation of the impression and plan. In addition, this note may been dictated utilizing voice recognition software. Unfortunately this leads to occasional typographical errors. I apologize in advance if the situation occurs. If questions occur please do not hesitate to call our office. The patient was advised to call with any issues or concerns in the future. [1] Past Medical History: Diagnosis Date Allergy Anemia [...] Urinary incontinence Urinary tract infection not current documented in this encounter Plan of Treatment Upcoming Encounters Date Type Department Care Team (Late st Contact Info) Description 05/27/2025 9:30 AM EST [facility] [address] [facility] [address] [place] [address] Lupillo Ponce APRN [address] [place], [place] [id number] 06/09/2025 11:30 AM EST Appointment [facility] [address] [place] [address] Richar Reed PA-C [address] [address] 08/11/2025 1:50 PM EDT Office Visit [facility] [address] [address] Judith Lomax MD [address] [phone] documented as of this encounter Goals Goal Patient Goal Type Associated Problems Recent Progress Patient-Stated? Author Eat better, exercise, reach an ideal body weight General No Rula Birch CCMA Stay Tobacco Free Lifestyle No Rula Birch CCMA documented as of this encounter Visit Diagnoses Diagnosis Osteoarthritis of left knee, unspecified osteoarthritis type- Primary documented in this encounter Care Teams Forensic Nurse Relationship Specialty Start Date End Date Abdulkadir Montoya MD [address] [place], [place] [phone] PCP - General 06/29/09 documented as of this encounter
--- OUTSIDE RECORDS SUMMARY | 2025-04-11 09:15 | XMS_ITS | Encounter Summary ---
Author Organization [facility] Address [address] [place] [address] Care Team Providers Care Transportation Operations Manager Name Role Phone Abdulkadir Montoya MD Primary Care Provider [phone] Reason for Referral * Surgical (Routine) - Pending Review Specialty Diagnoses / Procedures Referred By Contac t Referred To Contact Diagnoses Osteoarthritis of left knee, unspecified osteoarthritis type Procedures AMB OC SURGERY COMMUNICATION ORDER Richar Reed PA-C [address] [place] [address] Phone: tel: fax: Referral ID Status Reason Start Date Expiration Date V isits Requested Visits Authorized [id number] Pending Review 04/11/2025 04/11/2026 1 1 * Physical Therapy (Routine) - Pending Review Specialty Diagnoses / Procedures Referred By Contac t Referred To Contact Physical Therapy Diagnoses Osteoarthritis of left knee, unspecified osteoarthritis type Richar Reed PA-C [address] [place] [address] Phone: tel: fax: Referral ID Status Reason Start Date Expiration Date V isits Requested Visits Authorized [id number] Pending Review 04/11/2025 04/11/2026 1 1 Question Answer surgical procedure Left TKR Evaluate and Treat Yes Select as appropriate Evaluate and treat appropriately Modalities/Procedures As Indicated Therapeutic Exercise As Indicated Goals: Decrease pain and swelling, Increase ROM, Increase function, Increase strength Additional instructions: Teach HEP, Frequency and duration per therapist discretion Medical Necessity: Promote full function post operatively * MRI/CAT Scan (Routine) - Pending Review Specialty Diagnoses / Procedures Referred By Donna t Referred To Contact Radiology Diagnoses Osteoarthritis of left knee, unspecified osteoarthritis type Procedures CT LOWER EXTREMITY LEFT WO CONTRAST Ricahr Reed PA-C [address] [place] [address] Phone: tel: fax: Referral ID Status Reason Start Date Expiration Date V isits Requested Visits Authorized [id number] Pending Review 04/11/2025 04/11/2026 1 1 Reason for Visit * Reason Comments Pain Encounter Details Date Type Department Care Team (Latest Contact Info) Description 04/11/2025 9:15 [place] [address] Richar Reed PA-C [address] [place] [address] Osteoarthritis of left knee, unspecified osteoarthritis type (Primary Dx); Pre-op testing Social History Tobacco Use Types Packs/Day Years [...] Date Recorded PHQ-2 Total Score 0 02/18/2025 [facility] of Occupat ional Health - Occupational Stress [...] Dusty MCCLOUD [address] [place] [address] Lupillo Ponce APRN [address] [place], [place] [phone] 06/09/2025 11:30 AM EST Appointment [facility] [address] [facility] [place] [address] Richar Reed, PADylanC [address] [address] 08/11/2025 1:50 PM EDT Office Visit [facility] [address] [facility] [address] [place] [phone] Judith Lomax MD [address] [facility] [address] [place] [phone] Scheduled Orders Name Type Priority Associated Diagnoses Orde r Schedule CT LOWER EXTREMITY LEFT WO CONTRAST Imaging Routine Osteoarthritis of left knee, unspecified osteoarthritis type 1 Occurrences starting 04/11/2025 until 04/11/2026 CBC WITH DIFF Lab Routine Pre-op testing 1 Occurrences starting 04/11/2025 until 04/11/2026 COMPREHENSIVE METABOLIC PANEL Lab Routine Pre-op testing 1 Occurrences starting 04/11/2025 until 04/11/2026 PT / INR Lab Routine Pre-op testing 1 Occurrences starting 04/11/2025 until 04/11/2026 HEMOGLOBIN A1C Lab Routine Pre-op testing 1 Occurrences starting 04/11/2025 until 04/11/2026 Scheduled Referrals Name Type Priority Associated Diagnoses Orde r Schedule AMB REFERRAL TO PHYSICAL THERAPY Outpatient Referral Routine Osteoarthritis of left knee, unspecified osteoarthritis type Ordered: 04/11/2025 documented as of this encounter Goals Goal Patient Goal Type Associated Problems Recent Progress Patient-Stated? Author Eat better, exercise, reach an ideal body weight General No Grooms, Rula, CCMA Stay Tobacco Free Lifestyle No Grooms, Rula, CCMA documented as of this encounter Results * XR PELVIS (04/11/2025 9:16 AM EST) Narrative Genericuser, Audit - 04/11/2025 9:16 AM EST Please see physician's note from office encounter for x-ray imaging result us Leonides Rea MD IMG DIAGNOSTIC IMAGING ORDER TASHA Final Result documented in this encounter Visit Diagnoses Diagnosis Osteoarthritis of left knee, unspecified osteoarthritis type- Primary Pre-op testing Preoperative examination, unspecified Osteoarthritis of left knee, unspecified osteoarthritis type documented in this encounter Orders Nursing Count Last Ordered Date First Orde red Date AMB OC SURGERY COMMUNICATION ORDER 1 2024 documented in this encounter Care Teams Transportation Operations Manager Relationship Specialty Start Date End Date Abdulkadir Montoya MD [address] [place], [place] [phone] PCP - General 06/29/09 documented as of this encounter
--- OUTSIDE RECORDS SUMMARY | 2025-04-11 09:30 | XMS_ITS | Encounter Summary ---
Author Organization [facility] Address [address] [place] [address] Care Team Providers Care Copy Director Name Role Phone Abdulkadir Montoya MD Primary Care Provider [phone] Encounter Details Date Type Department Care Team (Latest Contact Info) Description 04/11/2025 9:30 [place] [address] Leonides Rea MD [address] [place] [phone] Osteoarthritis of left knee, unspecified osteoarthritis type Social History Tobacco Use Types Packs/Day Years [...] Date Recorded PHQ-2 Total Score 0 02/18/2025 [facility] [place] of Occupat ional [facility] - Occupational Stress Questionnaire Answer [...] EST Office Visit Dusty MCCLOUD [address] [place], [place] [phone] Lupillo Ponce, CLUSTER BORE OPERATOR [address] [place], [place] [phone] 06/09/2025 11:30 AM EST Appointment [facility] [address] [facility] [place] [address] Richar Reed PA-C [address] [address] 08/11/2025 1:50 PM EDT [facility] [address] [facility] [address] [place] [phone] Judith Lomax MD [address] [phone] documented as of this encounter Goals Goal Patient Goal Type Associated Problems Recent Progress Patient-Stated? Author Eat better, exercise, reach an ideal body weight General No Rula Birch CCMA Stay Tobacco Free Lifestyle No Rula Birch CCMA documented as of this encounter Procedures Procedure Name Priority Date/Time Associated Diagnosis Comments XR PELVIS Routine 04/11/2025 9:16 AM EST Osteoarthritis of left knee, unspecified osteoarthritis type documented in this encounter Results * XR PELVIS (04/11/2025 9:16 AM EST) Narrative Halinauser, Audit - 04/11/2025 9:16 AM EST Please see physician's note from office encounter for x-ray imaging result us Leonides Rea MD IMG DIAGNOSTIC IMAGING ORDER TASHA Final Result documented in this encounter Visit Diagnoses Diagnosis Osteoarthritis of left knee, unspecified osteoarthritis type documented in this encounter Care Teams Copy Director Relationship Specialty Start Date End Date Abdulkadir Montoya MD [address] [place], [place] [phone] PCP - General 06/29/09 documented as of this encounter
--- OUTSIDE RECORDS SUMMARY | 2025-04-21 15:40 | XMS_ITS | Encounter Summary ---
Author Organization [facility] [address] Care Team Providers Care Peoplesoft Fscm Developer Name Role Phone Abdulkadir Montoya MD Primary Care Provider [phone] Reason for Visit * Reason Comments Congestion Cough Exposed to flu Encounter Details Date Type Department Care Team (Late st Contact Info) Description 04/21/2025 3:40 PM EST Office Visit [facility] [place] [address] [address] Abdulkadir Montoya MD [address] [place] [address] Fever, unspecified fever cause (Primary Dx) Social History Tobacco Use Types Packs/Day Years Used Date Smoking Tobacco: Former Cigarettes 0.5 24 1 - 01/22/1999 Passive Smoke Exposure: Past Smokeless Tobacco: Never Tobacco Cessation:Counseling Given: Not Answered Alcohol Use Standard Drinks/Week Comments Never 0 (1 standard drink = 0.6 oz pur e alcohol) Overall Financial Resource Strain (CARDIA) Answe r Date Recorded How hard is it for you to pa y for the very basics like food, housing, medical care, and heating? Not hard at all 04/04/2023 PHQ-2 Answer Date Recorded PHQ-2 Total Score 0 02/18/2025 [facility] of Occupat ional Health - Occupational Stress [...] Sign Reading Time Taken Comments Blood Pressure 126/76 04/21/2025 3:41 PM EST Pulse 82 04/21/2025 3:41 PM EST Temperature 36.8 C (98.2 F) 04/21/2025 3:41 PM EST Respiratory Rate 18 04/21/2025 3:41 PM EST Oxygen Saturation 97% 04/21/2025 3:41 PM EST Inhaled Oxygen Concentration - - Weight 159.2 kg (351 lb) 04/21/2025 3:41 PM EST Height 165.1 cm (5' 5 ) 04/21/2025 3:41 PM EST Body Mass Index 58.41 04/21/2025 3:41 PM EST documented in this encounter Functional [...] Refills Last Filled Start Date End Date doxycycline hyclate (VIBRA-TABS) 100 mg Oral Tablet Take 1 Tablet by mouth 2 times daily for 10 days. 20 Tablet 04/21/2025 05/01/2025 documented in this encounter Progress Notes * Abdulkadir Montoya MD - 04/21/2025 3:40 PM EST Assessment & Plan Fever, unspecified fever cause Orders: POCT CEPHEID SARS COV-2 RNA + FLU A/B + RSV Progress Note: Vitals: 04/21/25 1541 BP: 126/76 Pulse: 82 Resp: 18 Temp: 98.2 ??F (36.8 ??C) TempSrc: Temporal SpO2: 97% Weight: (!) 351 lb (159.2 kg) Height: 5' 5 (1.651 m) Body mass index is 58.41 kg/m??. SUBJECTIVE: Chief Complaint Patient presents with Congestion Cough Exposed to flu HPI: cough/congestion/tightness in chest Daughter (lives with her) with flu. No fevers Review of Systems Constitutional: Negative. Negative for activity change, fatigue, fever and unexpected weight change. HENT: Positive for congestion. Negative for trouble swallowing. Eyes: Negative. Negative [...] and suicidal ideas. Thepatient is not nervous/anxious. OBJECTIVE: Physical Exam Vitals reviewed. Constitutional: General: She [...] and oriented to person, place, and time. documented in this encounter Plan of Treatment Upcoming Encounters Date Type Department Care Team (Late st Contact Info) Description 05/27/2025 9:30 AM EST Office Visit [facility]CCLOUD [address] [place], [place] [phone] Lupillo Ponce, RAG ROOM SUPERVISOR [address] [place], [place] [phone] 06/09/2025 11:30 AM EST Appointment [facility] [address] [facility] [place] [address] Richar Reed PA-C [address] [id number] 08/11/2025 1:50 PM EDT Office Visit [facility] [place] [address] [facility] [address] [place] [phone] Judith Lomax MD [address] [facility] [address] [place] [phone] documented as of this encounter Goals Goal Patient Goal Type Associated Problems Recent Progress Patient-Stated? Author Eat better, exercise, reach an ideal body weight General No Rula Birch CCMA Stay Tobacco Free Lifestyle No Rula Birch CCMA documented as of this encounter Procedures Procedure Name Priority Date/Time Associated Diagnosis Comments POCT CEPHEID SARS COV-2 RNA + FLU A/B + RSV Routine 04/21/2025 4:17 PM EST Fever, unspecified fever cause documented in this encounter Results * POCT CEPHEID SARS COV-2 RNA + FLU A/B + RSV (04/21/2025 4:17 PM EST) SARS COV-2 RNA Negative Negative, Invalid [facility] INFLUENZA A Negative Negative, Invalid SEP OFFICE INFLUENZA B Negative Negative, Invalid SEP OFFICE RSV Negative Negative, Invalid SEP OFFICE Lot Number 0 SEP OFFICE Expiration Date 0 SEP OFFICE SeriAl # SEP OFFICE Control Line SEP OFFICE 04/21/2025 4:17 PM EST Abdulkadir Montoya MD POINT OF CARE TEST ORDERABLES Final Result SEP OFFICE documented in this encounter Visit Diagnoses Diagnosis Fever, unspecified fever cause- Primary documented in this encounter Care Teams Peoplesoft Fscm Developer Relationship Specialty Start Date End Date Abdulkadir Montoya MD [address] [place] [phone] PCP - General 06/29/09 documented as of this encounter
[2025-04-22 15:47] VITALS: BP 122/67; PULSE 93; RESP 20; TEMP 37.3; O2SAT 97; BMI 58.3
--- NOTE | 2025-04-22 15:47 | XR_ITS ---
FINAL REPORT TECHNIQUE: Single view chest CLINICAL HISTORY: short of breath, asthma attack, currently has bronchitis COMPARISON: 09/13/2024 FINDINGS: A single view of the chest was obtained. The heart and mediastinum are within normal limits. There are low lung volumes with bibasilar opacities which could be atelectasis or pneumonia. There is no significant effusion or pneumothorax. IMPRESSION: Low lung volumes with bibasilar opacities which could be atelectasis or pneumonia. Recommend follow-up. Reviewed, Interpreted and Dictated by Valeria [place] MD Transcribed by Urvashi Haro Authenticated and [facility]
--- NOTE | 2025-04-22 15:49 | ECG_ITS ---
APPROVED REPORT Exam: Resting ECG HR:88 bpm ECG Measurements Heart Rate 88 AXES UT 152 P 37 QRSd 100 QRS 28 QT 355 T 4 QTc 400 Conclusion SINUS RHYTHM LOW QRS VOLTAGE IN PRECORDIAL LEADS [QRS DEFLECTION < 1.0 mV IN CHEST LEADS] NONSPECIFIC T-WAVE ABNORMALITY BORDERLINE ECG UNCONFIRMED REPORT Electronically signed by : Emil Feldman, 04/22/2025 23:26:27
[2025-04-22 15:55] LABS: Hematocrit 39.8 % (37.0-47.0); Hemoglobin 12.7 g/dL (12.2-16.2); Immature Granulocytes % 0.2 %; Mean Corpuscular HGB Conc 31.9 g/dL (31.8-35.4); Mean Corpuscular Hemoglobin 26.0 pg (27.0-31.2); Mean Corpuscular Volume 81.4 fl (81-99); Nucleated Red Blood Cells % 0 %; Platelet Count 233 K/mm3 (142-424); Red Blood Count 4.89 M/mm3 (4.20-5.40); Red Cell Distribution Width-SD 45.0 fL; White Blood Count 6.4 K/mm3 (4.8-10.8)
[2025-04-22] MEDS: IPRATROPIUM/ALBUTEROL 3 ML NEB 9 ML IH (15:59)
[2025-04-22] MEDS: MAGNESIUM SULFATE IN WATER 2 GM/50 ML PIGGYBACK IV (15:59)
[2025-04-22] MEDS: DEXAMETHASONE 4MG/ML 1ML VIAL 10 MG IV (15:59)
--- OUTSIDE RECORDS SUMMARY | 2025-04-22 16:00 | XMS_ITS | Encounter Summary ---
Author Organization [facility] [place] [place] [address] Care Team Providers Care Value Stream Leader Name Role Phone Abdulkadir Montoya MD Primary Care Provider [phone] Reason for Visit * Reason Comments Medication Refill Encounter Details Date Type Department Care Team (Late st Contact Info) Description 04/18/2025 Refill [facility] [address] [place] [address] Arminda Wilson APRN [address] [place], [place] [phone] Medication Refill Social History Tobacco Use Types [...] Date Recorded PHQ-2 Total Score 0 02/18/2025 [facility] [place] of Occupat ional Health - Occupational Stress [...] Steve Zelaya CCMA documented in this encounter Ordered Prescriptions Prescription Sig Dispense Quantity Refills Last Filled Start Date End Date omeprazole (PRILOSEC) 40 mg Oral Capsule, Delayed Release(E.C.)Indic ations:Abdominal pain, LUQ (left upper quadrant) TAKE 1 CAPSULE BY MOUTH EVERY DAY 90 Capsule 3 04/21/2025 documented in this encounter Miscellaneous Notes * Telephone Encounter - Lesvia Bah CPhT - 04/21/2025 3:21 PM EST Omeprazole - Refill request deferred to the office: Pt has an appt scheduled today, unsure how to proceed documented in this encounter Plan of Treatment Upcoming Encounters Date Type Department Care Team (Late st Contact Info) Description 05/27/2025 9:30 AM EST Office Visit Dusty MCCLOUD [address] [place] [address] Lupillo Ponce APRN [address] [place], [place] [phone] 06/09/2025 11:30 AM EST Appointment [facility] [address] [place] [address] Richar Reed PA-C [address] [address] 08/11/2025 1:50 PM EDT Office Visit [facility] [address] [facility] [address] [place] [phone] Judith Lomax MD [address] [facility] [address] [place] [address] [place] [phone] documented as of this encounter Goals Goal Patient Goal Type Associated Problems Recent Progress Patient-Stated? Author Eat better, exercise, reach an ideal body weight General No GroRula garcia CCMA Stay Tobacco Free Lifestyle No Rula Birch CCMA documented as of this encounter Visit Diagnoses Diagnosis Abdominal pain, LUQ (left upper quadrant) Abdominal pain, left upper quadrant documented in this encounter Discontinued Medications Medication Sig Discontinue Reason Start Date End Da te omeprazole (PRILOSEC) 40 mg Oral Capsule, Delayed Release(E.C.)Indications :Abdominal pain, LUQ (left upper quadrant) Take 1 Capsule by mouth daily. 04/26/2024 04/21/2025 documented as of this encounter Care Teams Value Stream Leader Relationship Specialty Start Date End Date Abdulkadir Montoya MD [address] [place] [phone] PCP - General 06/29/09 documented as of this encounter
--- OUTSIDE RECORDS SUMMARY | 2025-04-22 16:00 | XMS_ITS | Encounter Summary ---
Author Organization [facility] [place] [address] Care Team Providers Care Criminology Teacher Name Role Phone Abdulkadir Montoya MD Primary Care Provider Encounter Details Date Type Department Care Team (Latest Contact Info) Description 04/04/2025 Travel Social History Tobacco Use Types Packs/Day [...] Date Recorded PHQ-2 Total Score 0 02/18/2025 [facility] - Occupational Stress [...] Steve Gimenez CCMA documented in this encounter Plan of Treatment Upcoming Encounters Date Type Department Care Team (Late st Contact Info) Description 05/27/2025 9:30 AM EST Office Visit [facility]y HUDDLESTONGeorges [address] [place], [place] [id number] Lupillo Ponce, CERTIFIED NURSE AIDE [address] [place], [place] [id number] 06/09/2025 11:30 AM EST Appointment [place] [address] [place] [address] Richar Reed, PADylanC [address] [place] [address] 08/11/2025 1:50 PM EDT Office Visit [facility] [place] [address] [id number] Judith Lomax MD [address] [phone] documented as of this encounter Goals Goal Patient Goal Type Associated Problems Recent Progress Patient-Stated? Author Eat better, exercise, reach an ideal body weight General No Rula Birch CCMA Stay Tobacco Free Lifestyle No Rula Birch CCMA documented as of this encounter Visit Diagnoses Not on filedocumented in this encounter Care Teams Criminology Teacher Relationship Specialty Start Date End Date Abdulkadir Montoya [place] [address] [place] [address] PCP - General 06/29/09 documented as of this encounter
--- OUTSIDE RECORDS SUMMARY | 2025-04-22 16:00 | XMS_ITS | Continuity of Care Document ---
Author Organization [facility] Address [facility] [place] [address] Phone Care Team Providers Care Catalyst Unit Operator Name Role Phone Abdulkadir Montoya MD Primary Care Provider [phone] Encounters Date Type Department Care Team Description 04/21/2025 Travel 04/21/2025 3:40 PM EST Office Visit [facility] [address] [place] [address] Abdulkadir Montoya MD Fever, unspecified fever cause (Primary Dx) 04/18/2025 Refill [facility] [address] [place] [address] Arminda Wilson APRN Medication Refill 04/11/2025 9:30 AM EST Ancillary Procedure [address] [id number] Leonides Rea MD Osteoarthritis of left knee, unspecified osteoarthritis type 04/11/2025 9:15 AM EST Office Visit [address] [address] Richar Reed, ISAI Osteoarthritis of left knee, unspecified osteoarthritis type (Primary Dx); Pre-op testing 04/09/2025 2:45 PM EST Office Visit [facility] [address] Kendall Garcia MD Osteoarthritis of left knee, unspecified osteoarthritis type (Primary Dx) 04/04/2025 Refill [facility] [address] [place] [address] Abdulkadir Montoya MD Medication Refill 04/04/2025 Travel 04/04/2025 9:45 AM EST Office Visit [address] [place] [address] Katie, Arminda, SAUTE CHEF URI, acute (Primary Dx); Acute cough; Immunosuppressed status 04/02/2025 Refill SEP [address] [place] [address] Abdulkadir Montoya MD Medication Refill 03/27/2025 1:45 PM EST Ancillary Procedure [facility] [address] Christina Teran PA Acute pain of left knee 03/27/2025 1:30 PM EST [facility] [address] [address] Christina Teran PA Osteoarthritis of left knee, unspecified osteoarthritis type (Primary Dx); Acute pain of left knee 03/22/[address] [place] [address] Abdulkadir Montoya MD Medication Refill 03/04/2025 Refill SEP [address] [place] [address] Abdulkadir Montoya MD Medication Refill 03/03/2025 Refill SEP [address] [place] [address] Abdulkadir Montoya MD Medication Refill 02/23/2025 10:30 AM EST Office Visit [address] [address] Amelia Emmanuel APRN Dental infection (Primary Dx); Gingival erythema 02/23/2025 Travel 02/23/2025 8:15 AM EST Telemedicine [facility] Visits [address] [place] [address] Daya Bonner APRN Oral infection (Primary Dx) 02/23/2025 Nurse Triage [facility] [address] [place] [address] Natalie Olivares RN 02/22/2025 Refill [place] [address] [place] [address] Abdulkadir Montoya MD Medication Refill 02/20/2025 Results Follow-Up [facility] [address] [place] [address] Arminda Wilson APRN CBC WITH DIFF, COMPREHENSIVE METABOLIC PANEL, HEMOGLOBIN A1C, Additional followed-up results: 3 02/18/2025 1:45 PM EDT Office Visit [facility] [place] [address] [place] [place] [address] Arminda Wilson APRN Annual physical exam (Primary Dx); 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; Class 3 severe obesity due to excess calories with serious comorbidity and body mass index (BMI) of 50.0 to 59.9 in adult (HCC); Prediabetes; Lipid screening; Chronic midline low back pain with left-sided sciatica; Medication management; Flu vaccine need; Need for pneumococcal vaccination; Skin tag 02/17/2025 Travel 02/16/2025 Refill [place] [address] [place] [address] Abdulkadir Montoya MD Medication Refill 02/10/2025 1:30 PM EDT Office Visit [facility] [address] [facility] [address] [place] [address] Judith Lomax MD 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 (Primary Dx); Class 3 severe obesity due to excess calories with serious comorbidity and body mass index (BMI) of 50.0 to 59.9 in adult (HCC) 02/06/2025 Travel 02/03/[address] [place] [address] Abdulkadir Montoya MD Medication Refill 02/01/[address] [place] [address] Abdulkadir Montoya MD Medication Refill 01/17/2025 10:49 AM EDT - 01/17/2025 11:59 PM EDT Hospital Encounter [facility] [address] [place], [place] [address] 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 Discharge Disposition: Home or Self Care 01/16/2025 10:00 AM EDT Office Visit [address] [place] [address] Arminda Wilson APRN Bronchitis (Primary Dx) 01/04/[address] [place] [address] Abdulkadir Montoya MD Medication Refill 01/03/2025 Refill [facility] [address] [facility] [address] [place] [address] Judith Lomax MD Medication Refill 12/29/[address] [place] [address] Abdulkadir Montoya MD Medication Refill 12/20/2024 Results Follow-Up [address] [place] [address] Crista Briseno DO URINE CULTURE (NO STAIN) 12/16/2024 Travel 12/16/2024 9:00 AM EDT Office Visit [address] [place] [address] Crista Briseno DO Dysuria (Primary Dx); UTI (urinary tract infection), uncomplicated 12/10/2024 Refill [facility] [address] [place], [place] [address] Abdulkadir Montoya MD Medication Refill 12/01/[address] [place] [address] Abdulkadir Montoya MD Medication Refill 11/30/[address] [place] [address] Arminda Wilson APRN Medication Refill 11/30/[address] [place] [address] Jj Garcia MD Medication Refill 11/30/[address] [place] [address] Abdulkadir Montoya MD Medication Refill 11/27/2024 7:37 AM EDT - 11/27/2024 11:59 PM EDT Hospital Encounter [facility] [place] MRI [address] [phone] Abdulkadir Montoya MD Seizure-like activity (HCC) Discharge Disposition: Home or Self Care 11/20/2024 Results Follow-Up [address] [place] [address] Abdulkadir Montoya MD THYROID STIMULATING HORMONE, T4, FREE (THYROXINE), SEDIMENTATION RATE AUTOMATED, Additional followed-up results: 3 11/19/2024 2:00 PM EDT Office Visit [address] [place] [address] Abdulkadir Montoya MD Seizure-like activity (HCC) (Primary Dx) 11/18/[address] [place] [address] Abdulkadir Montoya MD Appointment Needed (hospital f/u for seizure like episodes. discharged 11/17/ no bal) 11/16/2024 6:38 PM EDT - 11/17/2024 5:57 PM EDT Hospital Encounter [facility] [address] [address] [place] [address] Arcadio Ruiz MD Nienaber, Kirk A, MD Discharge Disposition: Home or Self Care 11/16/2024 Travel 11/14/2024 Refill [facility] [address] [place] [address] Abdulkadir Montoya MD Medication Refill 11/12/2024 11:30 AM EDT Office Visit [facility] Urogynecology [address] [address] Nicolette Phillips PA-C History of pelvic surgery (Primary Dx); History of repair of rectocele; History of suburethral sling procedure 11/06/2024 12:23 PM EDT - 11/06/2024 3:24 PM EDT Emergency [facility] [address] [place] [address] Corazon Salvador MD Right leg pain (Primary Dx); Right hip pain Discharge Disposition: Home or Self Care 11/02/2024 Refill [facility] [place] [place] [address] Abdulkadir Montoya MD Medication Refill 10/30/2024 Results Follow-Up [facility] [place] [facility] [place] [place] [address] Arminda Wilson APRN MM MAMMO DIGITAL TRACIE SCREEN BILAT 10/30/2024 9:25 AM EDT - 10/30/2024 11:59 PM EDT Hospital Encounter [address] [place] [address] Arminda Wilson APRN Encounter for screening mammogram for malignant neoplasm of breast Discharge Disposition: Home or Self Care 10/18/2024 Refill [facility] [address] [place] [address] Abdulkadir Montoya MD Medication Refill 10/16/2024 Refill [facility] [address] [place] [address] Abdulkadir Montoya MD Medication Refill 10/07/2024 Results Follow-Up [facility] [address] [facility] [address] [place] [address] Judith Lomax MD THYROID STIMULATING HORMONE, THYROID STIMULATING HORMONE 10/07/2024 Refill SEP [address] [place] [address] Arminda Wilson APRN Medication Refill 10/07/2024 8:30 AM EDT - 10/07/2024 11:59 PM EDT Hospital Encounter [facility] [address] 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 Discharge Disposition: Home or Self Care 10/06/2024 Refill [facility]P [address] [place] [address] Abdulkadir Montoya MD Medication Refill 09/24/2024 10:45 AM EDT Office Visit [address] [address] Leonides Stroud, DPM Stress reaction of left foot with routine healing, subsequent encounter (Primary Dx); Peroneal tendinitis of left lower extremity; Sprain of tarsometatarsal ligament of left foot, subsequent encounter 09/20/2024 Refill SEP [address] [place] [address] Arminda Wilson APRN Medication Refill 09/17/2024 Refill SEP [address] [place] [address] Abdulkadir Montoya MD Medication Refill 09/17/2024 Refill SEP [address] [place] [address] Abdulkadir Montoya MD Medication Refill 09/16/2024 Travel 09/16/2024 9:44 AM EDT - 09/16/2024 1:14 PM EDT [facility] [address] [facility] [address] Abdiel Barclay MD Acute costochondritis (Primary Dx) Discharge Disposition: Home or Self Care 09/16/2024 Nurse Triage [facility] [address] [place] [address] Tawny Mo RN 09/13/2024 [address] [place] [address] Abdulkadir Montoya MD Other (FYI: Pt having muscle spasm); Patient Returning Call ( pt son called to say that they took her to the ED ) 09/11/2024 Refill [facility] [address] [place] [address] Yanick Odonnell APRN Medication Refill 09/10/2024 Refill SE[facility] [address] [place] [address] Abdulkadir Montoya MD Medication Refill 09/08/2024 Refill SE[facility] [address] [place] [address] Abdulkadir Montoya MD Medication Refill; Central Patient Navigator Outreach (Med Refill 30/) 09/03/2024 2:30 PM EDT Clinical Support [facility] [address] [address] Reji Oleayr MA Stress reaction of left foot, initial encounter (Primary Dx); Sprain of tarsometatarsal ligament of left foot, initial encounter 09/03/2024 11:00 AM EDT Ancillary Procedure [address] [address] Leonides Stroud, BOSSMAN Stress reaction of left foot, initial encounter; Peroneal tendinitis of left lower extremity 09/03/2024 10:45 AM EDT Ancillary Procedure [facility] [address] [place] [address] Leonides Stroud DPM Stress reaction of left foot, initial encounter; Peroneal tendinitis of left lower extremity 09/03/2024 10:30 AM EDT Office Visit [facility] [address] [place] [address] Leonides Stroud, BOSSMAN Sprain of tarsometatarsal ligament of left foot, initial encounter (Primary Dx); Stress reaction of left foot, initial encounter; Left foot pain 08/29/2024 Refill [facility] [address] [place] [address] Arminda Wilson APRN Medication Refill; Central Patient Navigator Outreach (Med Refill 30/) 08/20/2024 3:15 PM EDT Office Visit [facility] [address] [facility] [address] [place] [address] Yanick Odonnell APRN Stress reaction of left foot, initial encounter (Primary Dx); Peroneal tendinitis of left lower extremity; Painful os peroneum syndrome 08/20/2024 Travel 08/20/2024 1:23 PM EDT - 08/20/2024 3:03 PM EDT Emergency [facility] Emergency [address] [facility] [place] [address] Thor Conway MD Foot pain, left (Primary Dx) Discharge Disposition: Home or Self Care 08/13/2024 Refill [facility] [address] 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 (Primary Dx); Class 3 severe obesity due to excess calories with serious comorbidity and body mass index (BMI) of 60.0 to 69.9 in adult 07/24/2024 Refill [place] [address] [place] [place] [address] Shallowater, Arminda, SAUTE CHEF Medication Refill 07/24/2024 Refill [facility] [place] [address] [place] [address] Shallowater, Arminda, SAUTE CHEF Medication Refill 07/19/2024 Travel 07/19/2024 11:30 AM EDT Office Visit [facility] [place] [address] [address] [place] [place] [address] Abdulkadir Montoya MD Acute bacterial sinusitis (Primary Dx) 07/18/2024 Refill [facility] [place] [address] [place] [place] [address] Shallowater, Arminda, SAUTE CHEF Medication Refill 07/16/2024 10:10 AM EDT - 07/16/2024 11:59 PM EDT Hospital Encounter [facility] [address] 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 Discharge Disposition: Home or Self Care 07/14/2024 Refill [facility] [place] [facility] [address] [place] [address] Abdulkadir Montoya MD Medication Refill 07/05/2024 Refill [place] [address] [place] [address] Abdulkadir Montoya MD Medication Refill 06/17/2024 Refill [facility] [address] [place] [address] Abdulkadir Montoya MD Medication Refill 06/08/[address] [place] [address] Abdulkadir Montoya MD Medication Refill 06/07/2024 Travel 06/07/2024 11:45 AM EST Office Visit [address] [place] [address] [place]allow[place], [place], SAUTE CHEF Viral URI with cough (Primary Dx); Body aches 06/03/[address] [place] [address] [place], [place], SAUTE CHEF Medication Refill 05/22/2024 Travel 05/22/2024 11:45 AM EST Office Visit [address] [place] [address] [place], [place], SAUTE CHEF Rhinosinusitis (Primary Dx); Nasal congestion 05/19/[address] [place] [address] Abdulkadir Montoya MD Medication Refill 05/19/[address] [place] [address] Abdulkadir Montoya MD Medication Refill 05/15/2024 Travel 05/15/2024 11:00 AM EST Office Visit [facility] Urogynecology [address] [address] Nicolette Phillips PA-C Postoperative examination (Primary Dx); Female cystocele; Rectocele; Stress incontinence in female; Dysuria 05/14/2024 Travel 05/14/2024 2:20 PM EST Office Visit [address] [place] [address] Abdulkadir Montoya MD Acute cystitis with hematuria (Primary Dx) 05/07/[address] [place] [address] Abdulkadir Montoya MD Medication Refill 05/02/2024 1:03 PM EST - 05/02/2024 11:59 PM EST Hospital Encounter [address] [place] [address] [place], [place], SAUTE CHEF Abdominal pain, LUQ (left upper quadrant) Discharge Disposition: Home or Self Care 04/28/2024 Orders Only [place] [address] [place] [address] Katie, [place], SAUTE CHEF Abdominal pain, LUQ (left upper quadrant) (Primary Dx) 04/26/2024 Travel 04/26/2024 1:15 PM EST Office Visit [place] [address] [place] [address] Katie, [place], SAUTE CHEF Abdominal pain, LUQ (left upper quadrant) (Primary Dx); Elevated glucose 04/19/2024 Refill [place] [address] [place] [address] Abdulkadir Montoya MD Medication Refill 04/14/2024 Refill [facility] [address] [facility] [address] [place] [address] Judiht Lomax MD Medication Refill 04/13/2024 Refill [place] [address] [place] [address] Abdulkadir Montoya MD Medication Refill 04/10/2024 Refill [place] [address] [place] [address] Beverly Bradley APRN Medication Refill 04/05/2024 Telephone [facility] Urogynecology [address] [address] Jessi Leon LPN Post-op Call 04/04/2024 Travel 04/04/2024 1:40 PM EST - 04/04/2024 3:25 PM EST Surgery [facility] [address] [place] [address] Elmira Mendoza MD ANTERIOR AND POSTERIOR REPAIR (CYSTOCELE AND RECTOCELE REPAIR) 04/04/2024 12:20 PM EST Anesthesia Event [facility] [address] [place] [address] Wanda Miranda MD Zehnder, Wende, APRN 04/04/2024 10:44 AM EST - 04/04/2024 5:06 PM EST Hospital Encounter [facility] SAME DAY SURGERY [address] [place] [id number] Elmira Mendoza MD Female cystocele; Rectocele; Stress incontinence in female Discharge Disposition: Home or Self Care 04/03/2024 Refill [facility] [address] [place] [address] Beverly Bradley APRN Medication Refill 04/02/2024 10:00 AM EST Office Visit [place] [address] [place] [address] Arminda Wilson APRN Personal history of asthma (Primary Dx) 04/01/2024 Travel 03/28/2024 Orders Only [facility] [address] [address] Jessi Leon LPN Female cystocele (Primary Dx); Rectocele; Stress incontinence in female 03/28/2024 Telephone [facility] [address] [address] Jessi Leon LPN Pre-op Call 03/28/2024 Telephone [facility]G PRE-ADMIT TESTING One [facility] [place] [address] Rae Dawn, JEREL Pre-op Call 03/26/2024 Refill [place] [address] [place] [address] Abdiel Lucas MD Medication Refill 03/25/2024 Refill [facility] [place] [address] [place] [address] Abdulkadir Montoya MD Medication Refill 03/22/2024 Travel 03/19/2024 Travel 03/19/2024 9:15 AM EST Office Visit [facility] [place] [address] [address] [place] [address] Arminda Wilson APRN Hospital discharge follow-up (Primary Dx); Mild intermittent asthma with acute exacerbation; Intravenous infiltration, subsequent encounter 03/14/2024 6:56 PM EST - 03/14/2024 7:16 PM EST Emergency [facility] [address] [place], [place] [address] Blessing Rios MD Hand swelling (Primary Dx) Discharge Disposition: Home or Self Care 03/14/2024 Nurse Triage [facility] Nurse Now [address] [place], [place] [address] [address] Silas Rodriguez RN 03/14/2024 Travel 03/14/2024 1:47 PM EST - 03/14/2024 4:44 PM EST Emergency [facility] [address] [place] [id number] Ce Philippe DO Mild intermittent asthmatic bronchitis with acute exacerbation (Primary Dx) Discharge Disposition: Home or Self Care 03/13/2024 Refill [facility] [address] [place] [address] Abdulkadir Montoya MD Medication Refill 03/13/2024 Travel 03/13/2024 1:15 PM EST Office Visit [facility] [place] [address] [place] APRN Pre-op examination (Primary Dx); Female cystocele; Rectocele; Stress incontinence in female; Post-operative nausea and vomiting; Bronchitis 03/12/2024 Refill [facility] [place] [address] [place] [address] Abdulkadir Montoya MD Medication Refill 02/28/2024 Travel 02/28/2024 1:45 PM EST Office Visit [facility] [place] [address] [address] [place] [address] Katie, Arminda, SAUTE CHEF Bronchitis (Primary Dx) 02/27/2024 Travel 02/27/2024 Refill [facility] [place] [address] [place] [address] Abdiel Lucas MD Medication Refill 02/23/2024 Refill [facility] [address] [place] [address] Abdulkadir Montoya MD Medication Refill 02/23/2024 Refill [facility] [address] [place] [address] Arminda Wilson, SAUTE CHEF Medication Refill 02/14/2024 Refill [facility] [address] [place] [place] [address] Abdulkadir Montoya MD Medication Refill 02/14/2024 Refill [facility] [address] 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 Discharge Disposition: Home or Self Care 02/04/2024 Travel 02/01/2024 Telephone [facility] [address] [address] Jessi Leon LPN Surgery Scheduling 02/01/2024 Refill [facility] [place] [address] [place] [address] Abdulkadir Montoya MD Medication Refill 01/31/[address] [place] [address] Abdiel Lucas MD Medication Refill 01/24/2024 Telephone [facility] Urogynecology [address] [address] Mary Vargas NA Other 01/24/2024 2:30 PM EDT Office Visit [facility] [address] [address] Elmira Mendoza MD Female cystocele (Primary Dx); Rectocele; Stress incontinence in female 01/23/2024 Travel 01/17/[address] [place] [address] Arminda Wilson, SAUTE CHEF Medication Refill 12/27/[address] [place] [address] Abdulkadir Montoya MD Medication Refill 12/24/[address] [place] [address] Abdiel Lucas MD Medication Refill 12/21/2023 9:20 AM EDT Office Visit [address] [place] [address] Abdulkadir Montoya MD YNES positive (Primary Dx) 12/20/2023 Travel 12/17/[address] [place] [address] Abdulkadir Montoya MD Medication Refill 12/14/[address] [place] [address] Arminda Wilson, SAUTE CHEF Medication Refill 12/12/2023 10:50 AM EDT Clinical Support [address] [place] [address] Kristin Acevedo Joint swelling 12/11/2023 Travel 12/11/2023 4:20 PM EDT Office Visit [address] [place] [address] Abdulkadir Montoya MD Joint swelling (Primary Dx) 11/29/[address] [place] [address] Abdiel Lucas MD Medication Refill 11/20/[address] [place] [address] Abdulkadir Montoya MD Medication Refill 11/19/[address] [place] [address] Arminda Wilson APRN Medication Refill 11/03/2023 Travel 11/03/2023 11:15 AM EDT Office Visit [address] 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 [place], [place] [address] Arminda Wilson APRN Medication Refill 10/23/2023 Refill [facility] [address] [place] [address] Abdulkadir Montoya MD Medication Refill 10/22/2023 Refill [facility] [address] 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 [place], [place] [address] Abdulkadir Montoya MD 911/Red Flag (declined emergency services/scheduled appt today) 10/10/2023 11:20 AM EDT Office Visit [facility] [address] [place] [address] Aracely Montoya MD Costochondritis (Primary Dx); Bronchitis 10/03/2023 8:30 AM EDT Office Visit [facility] Urogynecology [address] [address] Elmira Mendoza MD Female cystocele (Primary Dx); Rectocele; Stress incontinence in female; Vaginal atrophy 10/02/2023 Travel 09/26/[address] [place] [address] Jj Garcia MD Medication Refill 09/24/[address] [place] [address] Arminda Wilson APRN Medication Refill 09/23/[address] [place] [address] Abdiel Lucas MD Medication Refill 09/22/2023 Orders Only [address] [place] [address] Abdulkadir Montoya MD Medication management (Primary Dx) 09/21/2023 Travel 09/21/2023 4:00 PM EDT Office Visit [address] [place] [address] Abdulkadir Montoya MD Acute midline low back pain without sciatica (Primary Dx) 09/13/2023 2:50 PM EDT Office Visit [facility] [address] [address] Genaro Campa MD Pressure sensation in both ears (Primary Dx); Abnormal auditory perception, bilateral; Ear pressure, right 09/08/[address] [place] [address] Nicolette Lomeli MD Medication Refill 09/06/2023 Travel 09/06/2023 9:00 AM EDT Office Visit [address] [place] [address] Crista Briseno DO Hospital discharge follow-up (Primary Dx); Ear pressure, right; Screening for colon cancer; Female bladder prolapse 09/04/2023 Patient Outreach [facility] [place] [address] Appointment Location May Differ [place] [id number] Saige Garrett RN Hospital Follow Up; Care Transition; CM - Medication Reconciliation 09/01/2023 11:33 AM EDT - 09/02/2023 11:49 AM EDT Hospital Encounter [facility] [address] [place] [address] Daniel García MD Alexis, Jacques Feres, MD Non-recurrent acute suppurative otitis media of right ear without spontaneous rupture of tympanic membrane (Primary Dx); Mild intermittent asthma, unspecified whether complicated Discharge Disposition: Home or Self Care 09/01/2023 Travel 08/28/2023 Travel 08/28/2023 11:30 AM EDT Office Visit [place] [address] [place] [address] Abdulkadir Montoya MD Acute bacterial sinusitis (Primary Dx) 08/23/2023 Refill [facility] [place] [address] [place] [address] Arminda Wilson, SAUTE CHEF Medication Refill 08/23/2023 Refill [facility] [place] [address] [place] [address] Abdiel Lucas MD Medication Refill 08/23/2023 Refill [place] [address] [place] [address] Abdiel Lucas MD Medication Refill 08/23/2023 Refill [facility] [address] [place] [address] Arminda Wilson, SAUTE CHEF Medication Refill 08/21/2023 12:04 PM EDT - 08/21/2023 11:59 PM EDT Hospital Encounter [facility] [address] [place] [address] 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 [address] Katie, [place]inda, SAUTE CHEF Medication Refill 07/29/[address] [place] [address] Abdiel Lucas MD Medication Refill 07/29/2023 Refill [facility] [address] [place] [address] Katie, Arminda, SAUTE CHEF Medication Refill 07/12/2023 3:45 PM EDT Office Visit [address] 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 [address] Nicolette Lomeli MD Medication Refill 06/29/[address] [place] [address] Katie, Arminda, SAUTE CHEF Medication Refill 06/28/[address] [place] [address] Katie, Arminda, SAUTE CHEF Medication Refill 06/28/2023 Refill [facility] [address] [place], [place] [address] Abdiel Lucas MD Medication Refill 06/16/2023 11:08 AM EST - 06/16/2023 11:59 PM EST Hospital Encounter [facility] [address], [place] [address] Primary hypothyroidism Discharge Disposition: Home or Self Care 06/02/2023 Travel 06/02/2023 11:10 AM EST Office Visit [address] [place] [address] Nicolette Lomeli MD Cellulitis of leg, right (Primary Dx) 06/02/[address] [place] [address] Abdulkadir Montoya MD Appointment Needed 06/01/[address] [place] [address] Nicolette Lomeli MD Medication Refill 05/30/[address] [place] [address] Arminda Wilson, SAUTE CHEF Medication Refill 05/30/[address] [place] [address] Nicolette Lomeli MD Medication Refill 05/29/[address] [place] [address] Arminda Wilson, SAUTE CHEF Medication Refill 05/29/[address] [place] [address] Abdiel Lucas MD Medication Refill 05/25/2023 Orders Only [facility] [address] [place] [address] Kristen Louie MD Obstructive sleep apnea (Primary Dx) 05/22/2023 Refill [place] [address] [place] [address] Abdulkadir Montoya MD Medication Refill 05/17/2023 Orders Only [facility] Sleep Medicine [facility] [address] [facility] [address] [place] [address] Kristen Louie MD Obstructive sleep apnea (Primary Dx) 05/09/2023 11:00 AM EST Office Visit [facility] Sleep Medicine [address] [place] [address] Kristen Louie MD Obesity, morbid, BMI 50 or higher (HCC) (Primary Dx); Obstructive sleep apnea 05/04/2023 Travel 05/02/2023 5:16 PM EST - 05/02/2023 11:59 PM EST Hospital Encounter [facility] [address] Nicolette Lomeli MD Cough, persistent Discharge Disposition: Home or Self Care 05/02/2023 12:00 PM EST Office Visit [facility] [address] [place] [address] [phone] Harmony Romo PA Drug allergy (Primary Dx); Asthma in adult without complication, unspecified asthma severity, unspecified whether persistent; Urticaria; Angioedema, initial encounter; Seasonal and perennial allergic rhinitis 05/01/2023 Refill [place] [address] [place] [address] Abdulkadir Montoya MD Medication Refill 05/01/2023 Refill [place] [address] [place] [address] Abdiel Lucas MD Medication Refill 05/01/2023 Refill [place] [address] [place] [address] Arminda Wilson APRN Medication Refill 04/27/2023 Travel 04/26/2023 1:40 PM EST Office Visit [place] [address] [place] [address] Nicolette Lomeli MD Subacute cough (Primary Dx); Peripheral edema; Cough, persistent 04/21/2023 Orders Only [facility] Sleep Disorder [address] [place] [address] Kristen Louie MD Obstructive sleep apnea (Primary Dx) 04/20/2023 Refill [facility] [address] [place] [address] Abdulkadir Montoya MD Medication Refill 04/20/2023 7:00 PM EST - 04/20/2023 11:59 PM EST Hospital Encounter [facility] Sleep Disorder [address] [place] [address] Obstructive sleep apnea (Primary Dx); Excessive sleepiness; Obesity, morbid, BMI 50 or higher (HCC); TANIA (obstructive sleep apnea); Primary snoring Discharge Disposition: Home or Self Care 04/18/2023 Orders Only [facility] [address] [address] Judith Lomax MD 04/14/2023 3:16 PM EST - 04/14/2023 11:59 PM EST Hospital Encounter [facility] [address] [place] [address] Primary hypothyroidism Discharge Disposition: Home or Self Care 04/14/2023 3:00 PM EST Office Visit [facility] [address] [address] Judith Lomax MD Primary hypothyroidism (Primary Dx); Conchis's disease 04/13/2023 Travel 04/07/2023 Travel 04/07/2023 10:20 AM EST Office Visit [facility] [address] [place] [address] Abdulkadir Montoya MD Cough, unspecified type (Primary Dx) 04/06/2023 Patient Outreach [facility] [address] [place] [address] Babita Raymond RN Hospital Follow Up; Care Transition; CM - Medication Reconciliation 04/06/[address] [place] [address] Katie, [place]inda, SAUTE CHEF Medication Refill 04/05/[address] [place] [address] Abdiel Lucas MD Medication Refill 04/05/[address] [place] [address] Shallowater, [place], SAUTE CHEF Medication Refill 04/03/2023 12:40 PM EST - 04/05/2023 5:19 PM EST Hospital Encounter [facility] [place] [address] [facility] [address] Ben Li MD Gaston, Richard L, MD Multifocal pneumonia (Primary Dx); Hypoxia Discharge Disposition: Home or Self Care 04/03/2023 Orders Only [address] [place] [address] Abdulkadir Montoya MD Rhinosinusitis; Acute pain of left knee 04/03/2023 Travel 03/22/2023 Travel 03/22/2023 3:00 PM EST Office Visit [address] [place] [address] Shallowater, Arminda, SAUTE CHEF Bilirubin in urine (Primary Dx); Dark urine 03/22/[address] [place] [address] Katie, [place], SAUTE CHEF Medication Refill 03/19/[address] [place] [address] Shallowater, Arminda, SAUTE CHEF Medication Refill 03/19/[address] [place] [address] Shallowater, Arminda, SAUTE CHEF Medication Refill 03/10/[address] [place] [address] Arminda Wilson APRN Medication Refill 03/07/2023 Refill [facility] [address] [place] [address] Abdiel Lucas MD Medication Refill 03/06/2023 9:40 AM EST Office Visit [address] [place] [address] Abdulkadir Montoya MD Acute bronchitis, unspecified organism (Primary Dx) 03/02/2023 2:15 PM EST Office Visit [facility] [address] [facility] [address] [place] [address] Pat Castro MD Positive YNES (antinuclear antibody) (Primary Dx); Skin eruption; Obesity, morbid, BMI 50 or higher (HCC); Anti-TPO antibodies present; Primary osteoarthritis involving multiple joints Discharge Disposition: Home or Self Care 02/24/2023 Travel 02/24/2023 12:25 PM EDT - 02/24/2023 4:17 PM EDT Emergency [facility] Emergency [address] [facility] [place] [address] Jamaica Thompson MD Allergic reaction, initial encounter (Primary Dx) Discharge Disposition: Home or Self Care 02/16/[address] [place] [address] Abdulkadir Montoay MD Medication Refill 02/14/2023 Travel 02/14/2023 8:33 AM EDT - 02/14/2023 11:59 PM EDT Hospital Encounter [facility] [address] [place] [address] Arminda Wilson APRN Peripheral edema Discharge Disposition: Home or Self Care 02/14/2023 12:00 PM EDT Office Visit [facility] [address] [place] [address] Kristen Louie MD Excessive sleepiness (Primary Dx); Obesity, morbid, BMI 50 or higher (HCC); TANIA (obstructive sleep apnea); Primary snoring 02/09/2023 Refill [facility] [address] [place] [address] Arminda Wilson APRN Medication Refill 02/09/2023 9:53 AM EDT - 02/09/2023 11:59 PM EDT Hospital Encounter [facility] [address] [place] [address] Positive YNES (antinuclear antibody) Discharge Disposition: Home or Self Care 02/08/2023 2:30 PM EDT Telemedicine [facility] [address] [facility] [address] [place] [address] Pat Castro MD Positive YNES (antinuclear antibody) (Primary Dx); Skin eruption; Obesity, morbid, BMI 50 or higher (HCC) 02/02/2023 Refill [facility] [address] [place] [address] Abdiel Lucas MD Medication Refill 01/24/2023 7:00 PM EDT - 01/24/2023 11:59 PM EDT Hospital Encounter [facility] [address] [place] [address] Excessive sleepiness; Primary snoring; Obstructive sleep apnea; Morbid obesity (HCC) Discharge Disposition: Home or Self Care 01/18/2023 Travel 01/18/2023 Refill [facility] [address] [place] [address] Abdulkadir Montoya MD Medication Refill 01/18/2023 2:15 PM EDT Office Visit [facility] [address] [place] [address] Arminda Wilson APRN Hospital discharge follow-up (Primary Dx); Peripheral edema; Mild intermittent asthma with exacerbation 01/15/2023 3:29 AM EDT - 01/15/2023 5:18 AM EDT Emergency [facility] [address] [place] [id number] Kenia Lindsey MD Mild intermittent asthma without complication (Primary Dx) Discharge Disposition: Home or Self Care 01/06/2023 Telephone [facility] [address] [facility] [address] [place] [address] Pat Castro MD Schedule Appointment 01/06/[address] [place] [address] Abdiel Lucas MD Medication Refill 01/06/2023 Refill [facility] [address] [place] [address] Katie, [place], SAUTE CHEF Medication Refill 12/21/2022 Travel 12/21/[address] [place] [address] Katie, [place], SAUTE CHEF Medication Refill 12/21/2022 2:45 PM EDT Office Visit [address] [place] [address] Shallowater, [place], SAUTE CHEF Chronic midline low back pain with left-sided sciatica (Primary Dx); Medication management; Screening for colon cancer; Dysphagia, unspecified type 12/20/2022 10:45 AM EDT Office Visit [facility] Sleep Medicine [address] [address] Kristen Louie MD Excessive sleepiness (Primary Dx); Primary snoring; Obstructive sleep apnea; Morbid obesity (HCC) 12/19/[address] [place] [address] Abdulkadir Montoya MD Medication Refill 12/17/2022 Refill [facility] [address] [place] [address] Shallowater, [place], SAUTE CHEF Medication Refill 12/17/2022 Refill [facility] [address] [place] [address] Abdulkadir Montoya MD Medication Refill 12/08/2022 Refill [facility] [address] [place] [address] Abdiel Lucas MD Medication Refill 12/07/2022 3:30 PM EDT Office Visit [address] [place] [address] Shallowater, [place], SAUTE CHEF Rhinosinusitis (Primary Dx); Suspected sleep apnea 12/06/2022 Travel 12/03/2022 Travel 12/03/2022 7:23 AM EDT - 12/03/2022 11:59 PM EDT Hospital Encounter [address] [place] [address] Katie, [place], SAUTE CHEF Pharyngeal dysphagia Discharge Disposition: Home or Self Care 11/24/2022 11:30 AM EDT Office Visit [address] [place] [address] Katie, [place], SAUTE CHEF Pharyngeal dysphagia (Primary Dx); Rash 11/09/2022 Refill [facility] [address] [place] [address] Abdiel Lucas MD Medication Refill 11/09/2022 Refill [facility] [address] [place] [address] Abdulkadir Montoya MD Medication Refill 11/03/2022 Telephone [facility] [address] [place] [address] Victoria Lara, Clerical Staff Other 11/01/2022 Telephone [facility] [address] [place] [address] Victoria Lara, Clerical Staff Other 10/30/2022 Orders Only [address] [place] [address] Shallowater, [place], SAUTE CHEF UTI (urinary tract infection), uncomplicated (Primary Dx) 10/28/2022 Telephone [facility] [address] [place] [address] Victoria Lara, Clerical Staff Other 10/28/2022 11:45 AM EDT Office Visit [address] [place] [address] Katie, [place], SAUTE CHEF Urinary frequency (Primary Dx); Prediabetes; Obesity, morbid, BMI 50 or higher (HCC); Lumbar pain 10/09/[address] [place] [address] Shallowater, [place], SAUTE CHEF Medication Refill 10/04/2022 Orders Only [address] [place] [address] Shallowater, [place], SAUTE CHEF Positive YNES (antinuclear antibody) (Primary Dx) 09/23/[address] [place] [address] Abdulkadir Montoya MD Results 09/23/2022 Orders Only [address] [place] [address] Shallowater, [place], SAUTE CHEF 09/22/2022 2:30 PM EDT Office Visit [address] [place] [address] Shallowater, [place], SAUTE CHEF Stasis dermatitis of both legs (Primary Dx); Contact dermatitis, unspecified contact dermatitis type, unspecified trigger; Acquired hypothyroidism; Red face 09/21/2022 Travel 09/16/2022 Travel 09/16/2022 2:58 PM EDT - 09/16/2022 11:59 PM EDT Hospital Encounter [address] [place] [address] Katie, [place], SAUTE CHEF Encounter for screening mammogram for breast cancer Discharge Disposition: Home or Self Care 09/15/[address] [place] [address] Shallowater, [place], SAUTE CHEF Medication Refill 09/08/[address] [place] [address] Nicolette Lomeli MD Medication Refill 08/19/2022 2:40 PM EDT Ancillary Procedure [facility] [address] [place] [address] Kendall Garcia MD Acute pain of left knee 08/19/2022 2:15 PM EDT Office Visit [facility] [address] [place] [address] [place] [address] Kendall Garcia MD Acute pain of left knee (Primary Dx) 08/10/[address] [place] [address] Aracely Montoya MD Medication Refill 08/04/2022 3:00 PM EDT Office Visit [address] [place] [address] Arminda Wilson, SAUTE CHEF Rash (Primary Dx); Acute pain of left knee; History of COVID-19 08/03/2022 Travel 06/30/[address] [place] [address] Arminda Wilson, SAUTE CHEF Medication Refill 06/16/[address] [place] [address] Abdulkadir Montoya MD Medication Refill 06/16/[address] [place] [address] Abdulkadir Montoya MD Medication Refill 06/14/2022 1:45 PM EST Office Visit [address] [place] [address] Arminda Wilson, SAUTE CHEF Annual physical exam (Primary Dx); Chronic midline low back pain with left-sided sciatica; Medication management; Acquired hypothyroidism; Elevated glucose; Lipid screening; Encounter for screening mammogram for breast cancer; Obesity, morbid, BMI 50 or higher (HCC); Situational anxiety; Dietary counseling; Exercise counseling 06/10/2022 Travel 06/10/[address] [place] [address] Abdulkadir Montoya MD Medication Refill 05/11/[address] [place] [address] Abdiel Lucas MD Medication Refill 05/11/[address] [place] [address] Abdulkadir Montoya MD Medication Refill 05/06/[address] [place] [address] Aracely Montoya MD Medication Refill 05/03/[address] [address] Beverly Hernandez, DO Medication Refill 05/03/[address] [address] Beverly Hernandez, DO Medication Refill 05/03/2022 11:50 AM EST Office Visit [address] [place] [address] Nicolette Lomeli MD Acute bacterial sinusitis (Primary Dx); Acute bronchitis, unspecified organism 05/02/2022 Travel 04/29/[address] [place] [address] Abdulkadir Montoya MD Medication Refill 04/29/[address] [address] Beverly Hernandez, DO Medication Refill 04/29/[address] [place] [address] Abdulkadir Montoya MD Medication Refill 04/29/[address] [phone] Beverly Hernandez, DO Medication Refill 04/27/2022 Refill [facility] [address] [place] [id number] Beverly Hernandez, DO Medication Refill 04/11/[address] [address] Beverly Hernandez, DO Medication Refill 04/11/[address] [place] [address] Arminda Wilson APRN Medication Refill 04/06/[address] [phone] Beverly Hernandez, DO Medication Refill 03/17/[address] [place] [address] Abdiel Lucas MD Medication Refill 03/16/[address] [place] [address] Abdulkadir Montoya MD Medication Refill 03/04/[address] [place] [address] Abdulkadir Montoya MD Medication Refill 03/03/2022 Refill [facility] [address] [place] [address] Nicolette Lomeli MD Medication Refill 02/16/[address] [place] [address] Aracely Montoya MD Medication Refill 02/04/2022 Refill [place] [address] [place] [address] Beverly Hernandez, DO Medication Refill 01/05/[address] [place] [address] Nicolette Lomeli MD Medication Refill 01/05/[address] [place] [address] Arminda Wilson APRN Medication Refill 12/21/[address] [place] [address] Abdulkadir Montoya MD Medication Refill 12/12/[address] [place] [address] Abdiel Lucas MD Medication Refill 11/30/[address] [address] Bevelry Hernandez, DO Medication Refill 11/23/2021 Patient Outreach [place] [address] [place] [address] Jazmin Gustafson ED Follow-Up Call 11/23/2021 Travel 11/23/2021 4:12 AM EDT - 11/23/2021 5:16 AM EDT Emergency [facility] Emergency [address] [facility] [place] [address] Jj Orourke MD Exacerbation of asthma, unspecified asthma severity, unspecified whether persistent (Primary Dx) Discharge Disposition: Home or Self Care 10/28/[address] [place] [address] Aracely Montoya MD Medication Refill 09/30/[address] [address] Beverly Bird DO Medication Refill 09/30/2021 Refill [facility] [address] [place] [address] Arminda Wilson APRN Medication Refill 09/30/2021 Refill [facility] [address] [place], [place] [address] Nicolette Lomeli MD Medication Refill 09/08/2021 Refill [facility] [address] [place], [place] [address] Abdulkadir Montoya MD Medication Refill 08/23/[address] [place] [address] Abdulkadir Montoya MD Medication Refill 08/04/[address] [place] [address] Aracely Montoya MD Medication Refill 07/16/2021 Travel 07/16/2021 1:20 PM EDT - 07/16/2021 11:59 PM EDT Hospital Encounter [facility] [address] [place] [address] Well adult exam; Lipid screening Discharge Disposition: Home or Self Care 07/07/[address] [place] [address] Nicolette Lomeli MD Medication Refill 07/02/2021 1:00 PM EST Office Visit [address] [place] [address] Arminda Wilson APRN Well adult exam (Primary Dx); Peripheral edema; Stasis dermatitis of both legs; Cellulitis of leg, left; Lipid screening; Obesity, morbid, BMI 50 or higher (HCC); Chronic midline low back pain with left-sided sciatica; Medication management; Acquired hypothyroidism; Dietary counseling 07/01/2021 Travel 06/29/2021 Orders Only [facility] [address] [place], [place] [address] Yesenia Lazo Acquired hypothyroidism 06/29/2021 Travel 06/29/2021 11:57 AM EST - 06/29/2021 11:59 PM EST Hospital Encounter [facility] [address] [place], [place] [address] Discharge Disposition: Home or Self Care 06/17/2021 Refill [facility] [address] [place] [address] Abdulkadir Montoya MD Medication Refill 06/05/2021 Refill SEP [address] [place] [address] Arminda Wilson APRN Medication Refill 06/04/2021 Refill SEP [address] [place] [address] Abdulkadir Montoya MD Medication Refill 05/19/2021 Refill SEP [address] [place] [address] Aracely Montoya MD Medication Refill 05/03/2021 Refill SEP [address] [place] [address] Abdiel Lucas MD Medication Refill 04/29/[address] [place] [address] Abdulkadir Montoya MD Medication Refill 04/15/2021 Refill SEP [address] [place] [address] Nicolette Lomeli MD Medication Refill 04/06/2021 Travel 04/06/2021 10:50 AM EST Office Visit [address] [place] [address] Arminda Wilson APRN Exposure to COVID-19 virus (Primary Dx); Abscess 04/05/[address] [place] [address] Abdulkadir Montoya MD Appointment Needed (Acute-Needs COVID test (exposed last week; no symptoms) & mass under rt armpit x 2 wks) 04/02/2021 Refill SEP [address] [place] [address] Arminda Wilson APRN Medication Refill 03/13/2021 Refill SEP [place] [address] [place] [address] Abdiel Lucas MD Medication Refill 03/13/2021 Refill SEP [place] [address] [place] [address] Abdulkadir Montoya MD Medication Refill 03/04/2021 Refill SEP [address] [place] [address] Abdulkadir Montoya MD Medication Refill 03/04/2021 Refill [facility]P [facility] [address] [place] [address] Beverly Hernandez, Medication Refill 02/17/2021 Refill SEP [address] [place] [address] Abdulkadir Montoya MD Medication Refill 02/15/2021 Refill SEP [address] [place] [address] Abdulkadir Montoya MD Medication Refill 02/15/2021 Patient Outreach [facility] Transformation [address] [place] [address] Jazmin Gustafson ED Follow-Up Call 02/13/2021 Refill SEP [address] [place] [address] Aracely Montoya MD Medication Refill 02/12/2021 Travel 02/12/2021 12:53 PM EDT - 02/12/2021 4:36 PM EDT Emergency [place] [address] [place] [address] Jj High MD Mild persistent asthma without complication (Primary Dx); Mild asthma with exacerbation, unspecified whether persistent Discharge Disposition: Home or Self Care 02/01/2021 2:30 PM EDT Clinical Support [address] [place] [address] Abdulkadir Montoya MD Suspected COVID-19 virus infection (Primary Dx); Acute bronchitis, unspecified organism 01/30/2021 Refill SEP [address] [place] [address] Beverly Hernandez, DO Medication Refill 01/15/[address] [place] [address] Nicolette Lomeli MD Medication Refill 01/11/2021 10:40 AM EDT Clinical Support [address] [place] [address] Abdulkadir Montoya MD Suspected COVID-19 virus infection (Primary Dx) 01/03/2021 Refill SEP [address] [place] [address] Beverly Hernandez, DO Medication Refill 01/03/[address] [place] [address] Arminda Wilson APRN Medication Refill 12/26/[address] [place] [address] Abdulkadir Montoya MD Medication Refill 12/08/2020 Refill SEP [address] [place] [address] Beverly Hernandez, DO Medication Refill 11/19/2020 Orders Only [place] [address] [place] [address] Aracely Montoya MD Acquired hypothyroidism (Primary Dx) 11/18/2020 Travel 11/18/2020 4:00 PM EDT Office Visit [address] [place] [address] Aracely Montoya MD Peripheral neuropathy, idiopathic (Primary Dx); Acquired hypothyroidism 11/17/2020 Travel 11/16/2020 Refill SEP [address] [place] [address] Arminda Wilson APRN Medication Refill 11/14/2020 Refill SEP [address] [place] [address] Abdulkadir Montoya MD Medication Refill; Medication Refill 11/12/[address] [phone] Beverly Hernandez, Medication Refill 11/02/2020 Travel 11/02/2020 3:40 PM EDT Office Visit [facility] [address] [place] [address] Beverly Hernandez DO Encounter for postoperative care (Primary Dx); Hormone replacement therapy (HRT) 10/27/2020 Refill SEP [address] [place] [address] Abdulkadir Montoya MD Medication Refill 10/19/[address] [place] [address] Abdulkadir Montoya MD Medication Refill 10/16/[address] [place] [address] Beverly Hernandez, DO Medication Refill 10/05/2020 Travel 10/05/2020 2:10 PM EDT Office Visit [facility] [address] [place] [address] Beverly Hernandez, DO Encounter for postoperative care (Primary Dx); Hot flashes 10/02/2020 Travel 09/24/2020 Travel 09/24/2020 Refill SEP [place] [address] [place] [address] Abdulkadir Montoya MD Medication Refill 09/24/2020 Refill SEP [place] [address] [place] [place] [address] Abdiel Lucas MD Medication Refill 09/24/2020 2:20 PM EDT Office Visit [facility] [address] [place] [address] Beverly Hernandez, DO Encounter for postoperative care (Primary Dx); Wound cellulitis 09/21/2020 Travel 09/16/2020 Refill [place] [address] [place] [address] Arminda Wilson, SAUTE CHEF Medication Refill 09/12/2020 Refill SEP [place] [address] [place] [place] [address] ShallowaterArminda alvarado, SAUTE CHEF Medication Refill 09/11/2020 Telephone [place] [address] [place] [facility] [address] Angelic Martino RN Patient Question 09/08/2020 Travel 09/08/2020 1:00 PM EDT Office Visit [address] [place] [address] Manuel Moran MD S/P laparoscopic hysterectomy (Primary Dx); Wound drainage 08/23/2020 Refill SEP [place] [address] [place] [place] [address] Abdulkadir Montoya MD Medication Refill 08/21/2020 Travel 08/21/2020 Refill SEP [place] [address] [place] [place] [address] Nicolette Lomeli MD Medication Refill 08/21/2020 11:40 AM EDT Office Visit SEP [facility] Johanny Turf [address] [place] [address] Beverly Hernandez DO Encounter for postoperative care (Primary Dx); Bladder spasms 08/11/2020 Travel 08/11/2020 8:00 AM EDT - 08/11/2020 10:30 AM EDT Surgery [facility] [address] [place] [address] Beverly Hernandez DO DAVINCI ROBOTIC TOTAL HYSTERECTOMY 08/11/2020 7:55 AM EDT Anesthesia Event [facility] [address] [place] [address] Maximino Lehman MD Merkle Serey, Jennifer L, ELEVATOR TROUBLESHOOTER 08/11/2020 6:00 AM EDT - 08/11/2020 1:51 PM EDT Hospital Encounter [facility] POST ANESTHESIA [address] [place] [address] Beverly Hernandez, Abnormal uterine bleeding (AUB); History of endometrial ablation; Intramural leiomyoma of uterus; Abnormal uterine bleeding (AUB); History of endometrial ablation; Intramural leiomyoma of uterus Discharge Disposition: Home or Self Care 08/07/2020 1:57 PM EDT - 08/07/2020 11:59 PM EDT Hospital Encounter [facility] [address] [address] Covid19, [facility] [place] Pre-op testing; Encounter for laboratory testing for COVID-19 virus Discharge Disposition: Home or Self Care 08/05/2020 10:35 AM EDT - 08/05/2020 11:59 PM EDT Hospital Encounter [facility] PRE-ADMIT TESTING [address] [place] [address] Pat, Johanny Preop testing (Primary Dx) Discharge Disposition: Home or Self Care 08/04/2020 Travel 08/03/2020 Travel 07/30/2020 Refill SEP Sujata [address] [place] [address] Katie, Arminda, SAUTE CHEF Medication Refill 07/27/2020 Telephone SEP [facility] [address] [place] [address] Beverly Hernandez DO Surgery (SURGERY INFORMATION (HYSTERECTOMY)) 07/23/2020 Travel 07/23/2020 2:20 PM EDT Office Visit [address] [place] [address] Beverly Hernandez DO Abnormal uterine bleeding (AUB) (Primary Dx); History of endometrial ablation; Intramural leiomyoma of uterus; Vaginal discharge 07/20/2020 Travel 07/20/2020 Refill SEP Sujata [address] [place] [address] Shallowater, Arminda, SAUTE CHEF Medication Refill 06/26/2020 Patient Outreach [place] [address] [place] [address] Jeromy Queen LPN ED Follow-Up Call 06/25/2020 Travel 06/25/2020 4:53 PM EST - 06/25/2020 7:19 PM EST Emergency [facility] [place] [address] Parveen Syed MD Schott, Jon J, MD Lower abdominal pain (Primary Dx) Discharge Disposition: Home or Self Care 06/22/2020 Refill SEP Sujata [address] [place] [address] Katie, Arminda, SAUTE CHEF Medication Refill 06/16/2020 Travel 06/16/2020 1:20 PM EST Office Visit [address] [place] [address] Manuel Moran MD Abnormal uterine bleeding (AUB) (Primary Dx); Intramural leiomyoma of uterus; History of endometrial ablation; Dyspareunia in female; Pelvic pain 06/15/2020 Refill SEP Sujata [facility] [place] [place] [address] Abdulkadir Montoya MD Medication Refill 06/10/2020 1:53 PM EST - 06/10/2020 11:59 PM EST Hospital Encounter [facility] [address] [place] [address] Abnormal uterine bleeding (AUB) Discharge Disposition: Home or Self Care 06/10/2020 Travel 06/09/2020 Travel 06/09/2020 10:40 AM EST Office Visit [facility]'s [facility] [address] [place] [address] Manuel Moran MD Abnormal uterine bleeding (AUB) (Primary Dx); Pelvic pain; Dyspareunia in female; Intramural leiomyoma of uterus; Obesity, morbid, BMI 50 or higher (HCC); History of endometrial ablation; History of right salpingo-oophorectomy 06/05/2020 Travel 05/23/2020 Refill [facility] Sujata [facility] [place] [place] [address] Nicolette Lomeli MD Medication Refill 05/20/2020 Refill [facility] [place] [address] [place] [address] Arminda Wilson APRN Medication Refill 05/19/2020 Travel 05/19/2020 10:00 AM EST Office Visit FITZ [place] [facility] [place] [place] [address] Abdulkadir Montoya MD Leg abscess (Primary Dx) 05/18/2020 11:00 AM EST Office Visit [facility] Sujata [facility] [place] [address] Abdulkadir Montoya MD Abscess of left leg (Primary Dx) 05/15/2020 Travel 05/15/2020 2:26 PM EST - 05/15/2020 11:59 PM EST Hospital Encounter [address] [place] [address] Arminda Wilson EM[place] Post-menopause bleeding Discharge Disposition: Home or Self Care 05/14/2020 Travel 05/07/2020 4:20 PM EST Office Visit [address] [place] [address] Aracely Montoya MD Moderate asthma with acute exacerbation, unspecified whether persistent (Primary Dx); Cough 05/07/2020 Travel 05/07/[address] [place] [address] Abdulkadir Montoya MD Medication Management (pt is taking Flagyl); Other 05/04/2020 Orders Only [address] [place] [address] Arminda Wilson, EMELY Bacterial vaginitis (Primary Dx) 05/01/[address] [place] [address] Arminda Wilson, EMELY Results 05/01/2020 Orders Only [address] [place] [address] Ellen Zel[facility], [facility] 04/30/2020 9:30 AM EST Office Visit [address] [place] [address] Arminda Wilson, EMELY Well adult exam (Primary Dx); Peripheral neuropathy, idiopathic; Medication management; Post-menopause bleeding; Obesity, morbid, BMI 50 or higher (HCC); Cervical cancer screening; Acquired hypothyroidism; Chronic midline low back pain with left-sided sciatica; Elevated glucose 04/30/2020 Travel 04/29/[address] [place] [address] Abdulkadir Montoya MD Medication Refill 04/27/[address] [place] [address] Abdulkadir Montoya MD Medication Refill 04/26/[address] [place] [address] Katie, Arminda, SAUTE [place]F Medication Refill 03/31/2020 Refill SEP [address] [place], [place] [address] Abdulkadir Montoya MD Medication Refill 03/31/2020 Refill SEP [address] [place], [place] [address] Katie, Arminda, SAUTE CHEF Medication Refill 03/31/2020 Refill SEP [address] [place], [place] [address] Abdiel Lucas MD Medication Refill 03/24/[address] [place], [place] [address] Abdulkadir Montoya MD Medication Refill 03/18/2020 10:40 AM EST Office Visit [address] [place], [place] [address] Katie, Arminda, SA[place] Acute bronchitis, unspecified organism (Primary Dx) 03/18/[address] [place], [place] [address] Abdulkadir Montoya MD Appointment Needed (acute) 03/18/2020 Travel 03/02/[address] [place], [place] [address] Shallowater, Arminda, SAUTE CHEF Medication Refill 02/01/[address] [place], [place] [address] Shallowater, Arminda, SAUTE CHEF Medication Refill 01/24/2020 Refill SEP [address] [place], [place] [address] Abdulkadir Montoya MD Medication Refill 01/06/2020 Refill SEP [address] [place], [place] [address] Abdulkadir Montoya MD Medication Refill 01/03/2020 Refill SEP [address] [place], [place] [address] Abdulkadir Montoya MD Medication Refill 12/31/2019 Refill SEP [address] [place], [place] [address] Katie, Arminda, SAUTE CHEF Medication Refill 12/23/2019 Travel 11/30/2019 Refill SEP [address] [place], [place] [address] Shallowater, Arminda, SAUTE CHEF Medication Refill 11/13/2019 Refill SEP [address] [place], [place] [address] Abdulkadir Montoya MD Medication Refill 11/07/[address] [place], [place] [address] Abdulkadir Montoya MD Medication Refill 11/07/[address] [place], [place] [address] Katie, Arminda, [place]F Medication Refill 10/28/2019 Refill SEP [address] [place], [place] [address] Shallowater, Arminda, SAUTE CHEF Medication Refill 10/17/2019 Refill SEP [address] [place], [place] [address] Katie, Arminda, SA[place]F Medication Refill 10/16/2019 Refill SEP [address] [place], [place] [address] Abdulkadir Montoya MD Medication Refill 10/04/2019 Refill SEP [address] [place], [place] [phone] Abdulkadir Montoya MD Medication Refill 10/02/[address] [place], [facility] [place] Abdiel Lucas MD Medication Refill 09/26/[address] [place] [address] Shallowater, Arminda, SAUTE CHEF Medication Refill 09/19/2019 Refill [address] [place] [address] Abdulkadir Montoya MD Medication Refill 09/12/2019 Travel 09/12/2019 1:40 PM EDT Office Visit [address] [place] [address] Aracely Montoya MD Abscess of arm, right (Primary Dx) 09/12/[address] [place] [address] Abdulkadir Montoya MD Schedule Appointment (needs appt) 09/09/2019 Patient Outreach [place] [address] [facility] [place] [address] Deb Sun ED Follow-Up Call; ED Follow-Up Call 09/09/[address] [place] [address] Abdulkadir Montoya MD Appointment Needed (acute) 09/08/2019 Travel 09/08/2019 3:21 PM EDT - 09/08/2019 5:31 PM EDT Emergency [facility] [address] Thor Conway MD Abscess (Primary Dx) Discharge Disposition: Home or Self Care 09/07/[address] [place] [address] Shallowater, Arminda, SAUTE [place]F Medication Refill 09/06/2019 Travel 09/06/2019 2:20 PM EDT Office Visit [address] [place] [address] Abdulkadir Montoya MD Lymphadenitis (Primary Dx) 08/23/2019 3:40 PM EDT Office Visit [address] [place] [address] Katie, [place], SAUTE CHEF Chronic midline low back pain with left-sided sciatica (Primary Dx) 08/23/2019 Travel 08/23/[address] [place] [address] Abdulkadir Montoya MD Symptom Call (pain in her lower back down legs to her feet, muscle spasms) 07/07/[address] [place] [address] Abdulkadir Montoya MD Medication Refill 07/07/[address] [place] [address] Shallowater, Arminda, SAUTE CHEF Medication Refill 06/30/[address] [place] [address] Katie, Arminda, SAUTE CHEF Medication Refill 06/28/2019 1:20 PM EST Clinical Support [address] [place] [address] Kristin Acevedo Acquired hypothyroidism 06/28/2019 Travel 06/12/2019 4:40 PM EST Office Visit [address] [place] [address] Shallowater, Arminda, SAUTE CHEF Viral URI (Primary Dx); Body aches; Chronic midline low back pain with left-sided sciatica 06/12/2019 Travel 05/27/[address] [place] [address] Abdulkadir Montoya MD Medication Refill (Hot flashes) 05/16/2019 10:00 AM EST Office Visit [address] [place] [address] Katie, Arminda, SAUTE [place] Yeast dermatitis (Primary Dx) 05/02/[address] [place] [address] Abdulkadir Montoya MD Medication Refill 04/23/2019 10:20 AM EST Office Visit [address] [place] [address] Abdulkadir Montoya MD Acute bronchitis, unspecified organism (Primary Dx); Acute pain of left knee; Peripheral neuropathy, idiopathic 04/23/[address] [place] [address] Abdulkadir Montoya MD Appointment Needed (Pain in Right lung when breathing, coughing, chills and SOB since /no bal) 04/06/[address] [place] [address] Abdulkadir Montoya MD Medication Refill 04/05/[address] [place] [address] Abdiel Lucas MD Medication Refill 04/04/[address] [place] [address] Arminda Wilson, SAUTE CHEF Medication Refill 04/02/[address] [place] [address] ShallowaterYoko alvaradoika, SAUTE CHEF Medication Refill 03/23/[address] [place] [address] Abdulkadir Montoya MD Medication Refill 03/18/2019 12:06 PM EST - 03/18/2019 11:[address] [facility] Hospital Encounter [facility] [address], [place] [address] Right arm pain Discharge Disposition: Home or Self Care 03/18/2019 9:00 AM EST Office Visit [address] [place] [address] Arminda Wilson, SAUTE CHEF Fall, initial encounter (Primary Dx); Right arm pain 03/12/[address] [place] [address] Abdulkadir Montoya MD Medication Refill 02/02/[address] [place] [address] Abdulkadir Montoya MD Medication Refill 01/17/2019 Orders Only [address] [place] [address] Arminda Wilson, EMELY Acquired hypothyroidism (Primary Dx) 01/14/2019 10:20 AM EDT Clinical Support [address] [place] [address] Kristin Acevedo Annual physical exam; Lipid screening; Acquired hypothyroidism 01/10/2019 3:20 PM EDT Office Visit [address] [place] [address] Arminda Wilson, EMELY Annual physical exam (Primary Dx); Acquired hypothyroidism; Chronic midline low back pain with left-sided sciatica; Obesity, morbid, BMI 50 or higher (HCC); Dietary counseling; Exercise counseling; Situational anxiety; Encounter for screening mammogram for breast cancer; Lipid screening 12/21/[address] [place] [address] Abdulkadir Montoya MD Medication Refill 11/11/[address] [place] [address] Abdulkadir Montoya MD Medication Refill 11/02/2018 Travel 11/02/2018 7:30 AM EDT - 11/02/2018 8:15 AM EDT Surgery [facility]G [facility] [place] [address] Parveen Marsh MD INCISION AND DRAINAGE, ANKLE/ HEEL/CALCANEUS 11/02/2018 7:25 AM EDT Anesthesia Event EDG [facility] [place] [address] Jj Tanner MD Braxton-Brown, Jennifer, APRN 11/02/2018 5:05 AM EDT - 11/02/2018 10:15 AM EDT Hospital Encounter EDG SAME DAY SURGERY [facility] [place] [address] Parveen [place] MD Deep postoperative wound infection (Primary Dx); Preop testing Discharge Disposition: Home or Self Care 11/01/2018 Travel 10/29/2018 Refill SEP [address] [place] [address] Abdiel Lucas MD Medication Refill 10/15/2018 Refill SEP [address] [place] [address] Abdulkadir Montoya MD Medication Refill 10/14/2018 Refill SEP [address] [place] [address] Abdiel Lucas MD Medication Refill 10/09/[address] [facility] [address] [place] [address] Daya Mcintosh LPN ED Follow-Up Call 10/06/2018 12:38 PM EDT - 10/06/2018 11:59 PM EDT Hospital Encounter [facility] [address] [place] [address] Speedy Pedroza MD Left leg pain Discharge Disposition: Home or Self Care 10/05/2018 9:20 PM EDT - 10/06/2018 12:42 AM EDT [facility] [address] [facility] [place] [address] Speedy Pedroza MD Left leg pain (Primary Dx) Discharge Disposition: Home or Self Care 10/03/2018 9:40 AM EDT Office Visit [facility] [address] [place] [address] Arminda Wilson APRN Moderate persistent asthma with (acute) exacerbation (Primary Dx) 09/28/2018 Travel 09/28/2018 10:30 AM EDT - 09/28/2018 12:00 PM EDT Surgery [facility] [place] [address] Parveen Marsh MD ACHILLES TENDON RECONSTRUCTION WITH FLEXOR HALLUCIS LONGUS TENDON TRANSFER AND EXCISION HAGLUNDS DEFORMITY CALCANEUS 09/28/2018 10:38 AM EDT Anesthesia Event [facility]G [facility] [place] [address] Leonides You MD Braxton-Brown, Jennifer, APRN 09/28/2018 8:07 AM EDT - 09/28/2018 2:33 PM EDT Hospital Encounter EDG SAME DAY SURGERY [facility] [place] [address] Parveen Marsh MD Discharge Disposition: Home or Self Care 09/22/2018 Refill SEP [address] [place] [address] Abdulkadir Montoya MD Medication Refill 09/10/2018 Refill SEP [address] [place] [address] Abdulkadir Montoya MD Medication Refill 08/21/2018 Refill SEP [address] [place] [address] Abdulkadir Montoya MD Medication Refill 08/15/2018 Refill SEP [address] [place] [address] Abdulkadir Montoya MD Medication Refill 08/14/[address] [place] [address] Abdulkadir Montoya MD Heel Pain 07/23/2018 1:20 PM EDT Office Visit [address] [place] [address] Grace Arroyo, EM[place] Acute bacterial sinusitis (Primary Dx) 07/23/[address] [place] [address] Abdulkadir Montoya MD Cough 07/13/2018 4:40 PM EDT Office Visit [address] [place] [address] Abdulkadir Montoya MD Moderate asthma with acute exacerbation, unspecified whether persistent (Primary Dx); Muscle spasm of left lower extremity; Obesity, morbid, BMI 50 or higher ([facility]) 07/10/[address] [place] [address] Abdiel Lucas MD Medication Refill 07/03/2018 4:40 PM EDT Office Visit [address] [place] [address] Arminda Wilson APRN Cutaneous abscess of other site (Primary Dx); Chronic midline low back pain with left-sided sciatica 05/29/2018 Orders Only [address] [place] [address] Ellen Zelaya CCMA Rash and nonspecific skin eruption 05/29/2018 11:30 AM EST Office Visit [address] [place] [address] Abdulkadir Montoya MD Rash and nonspecific skin eruption (Primary Dx) 05/26/[address] [place] [address] Abdulkadir Montoya MD Medication Refill 05/17/2018 Orders Only [address] [place] [address] Abdulkadir Montoya MD Hot flashes (Primary Dx) 04/30/2018 Patient Outreach [address] [place] [address] Tania Malagon, cherry sorter; Care Management - Chart Review; ED Follow-Up Call 04/30/2018 11:20 AM EST Office Visit [address] [place] [address] Abdulkadir Montoya MD Moderate asthma with acute exacerbation, unspecified whether persistent (Primary Dx); Acquired hypothyroidism; Menopausal symptoms; Restless legs syndrome (RLS) 04/29/[address] [place] [address] Abdulkadir Montoya MD Medication Refill 04/27/2018 9:22 PM EST - 04/27/2018 10:31 PM EST Emergency [facility] [address] [place] [address] Skyler Fontenot MD Mild intermittent asthma with exacerbation (Primary Dx) Discharge Disposition: Home or Self Care 04/22/[address] [place] [address] Abdiel Lucas MD Medication Refill 04/13/[address] [place] [address] Abdulkadir Montoya MD Other 04/13/2018 Refill SEP [address] [place] [address] Abdiel Lucas MD Medication Refill 03/21/2018 5:00 PM EST Office Visit [address] [place] [address] Abdiel Lucas MD Acute bronchitis, unspecified organism (Primary Dx) 03/21/[address] [place] [address] Abdulkadir Montoya MD Asthma 03/09/[address] [place] [address] Abdulkadir Montoya MD Medication Refill 03/05/2018 Patient Outreach [address] [place] [address] Tania Malagon RN Care Transition; Care Management - Chart Review; ED Follow-Up Call 03/04/2018 11:02 AM EST - 03/04/2018 12:32 PM EST Emergency [facility] [address] [place] [address] Scottie Sullivan MD Moderate asthma with exacerbation, unspecified whether persistent (Primary Dx) Discharge Disposition: Home or Self Care 02/28/2018 8:40 AM EST Office Visit [address] [place] [address] Nicolette Lomeli MD Pain in right arm (Primary Dx); Need for influenza vaccination; Need for pneumococcal vaccination 02/13/[address] [place] [address] Abdulkadir Montoya MD Medication Refill 02/08/2018 11:50 AM EDT Office Visit [address] [place] [address] Abdulkadir Montoya MD Acute bronchospasm (Primary Dx); Peripheral neuropathy, idiopathic 01/29/2018 11:50 AM EDT Office Visit [address] [place] [address] Abdulkadir Montoya MD Cutaneous abscess of face (Primary Dx) 01/29/[address] [place] [address] Abdulkadir Montoya MD Appointment Needed (Acute, painful bump behind ear) 12/29/2017 11:40 AM EDT Office Visit [address] [place] [address] Abdulkadir Montoya MD Pneumonia of right lower lobe due to infectious organism (HCC) (Primary Dx); Bilateral lower extremity pain 12/06/[address] [place] [address] Abdiel Lucas MD Medication Refill 11/17/[address] [place] [address] Abdulkadir Montoya MD Medication Refill 10/24/[address] [place] [address] Abdiel Lucas MD Medication Refill 09/08/2017 2:20 PM EDT Office Visit [address] [place] [address] Abdulkadir Montoya MD Bilateral lower extremity pain 09/01/2017 Refill SEP [address] [place] [address] Abdulkadir Montoya MD Medication Refill 08/25/2017 Refill SEP [address] [place] [address] Abdulkadir Montoya MD Medication Refill 08/13/2017 Refill SEP [address] [place] [address] Abdulkadir Montoya MD Medication Refill 07/16/2017 Refill SEP [address] [place] [address] Abdulkadir Montoya MD Medication Refill 07/13/2017 Refill SEP [address] [place] [address] Abdulkadir Montoya MD Medication Refill 07/03/2017 Patient Outreach [address] [place] [address] Tania Malagon RN Care Transition; Care Management - Chart Review; ED Follow-Up Call; Hospital Follow Up 07/03/2017 Patient Outreach [place] [address] [place] [address] Beverly Correa, JEREL Care Management - Chart Review (Hospital d/c review) 06/29/2017 8:53 PM EST - 06/30/2017 6:01 PM EST Emergency [facility] Emergency [address] [place] [address] Abdiel Uribe MD Shanehsaz, Piam, MD Chest pain, unspecified type (Primary Dx) Discharge Disposition: Home or Self Care 06/19/2017 Refill SEP [address] [place] [address] Abdulkadir Montoya MD Medication Refill 06/03/2017 Refill SEP [address] [place] [address] Abdiel Lucas MD Medication Refill 05/18/[address] [place] [address] Abdulkadir Montoya MD Medication Refill 05/05/[address] [place] [address] Abdiel Lucas MD Medication Refill 05/02/2017 3:30 PM EST Office Visit [address] [place] [address] Arminda Wilson APRN Exposure to the flu (Primary Dx); Moderate persistent asthma with exacerbation 04/10/2017 12:16 PM EST - 04/10/2017 11:59 PM EST Hospital Encounter [facility]G [address] [facility] [place] [address] [place] [address] Emg, Erasto Edg Pain in both lower extremities (Primary Dx); Bilateral lower extremity pain; Bilateral leg numbness Discharge Disposition: Home or Self Care 03/28/2017 12:00 PM EST Office Visit [address] [place] [address] Abdulkadir Montoya MD Bilateral lower extremity pain (Primary Dx); Lumbar radiculopathy 03/28/[address] [place] [address] Abdulkadir Montoya MD Other (appt) 03/25/[address] [place] [address] Abdulkadir Montoya MD Medication Refill 01/31/2017 10:20 AM EDT Office Visit [address] [place] [address] Abdulkadir Montoya MD Moderate asthma with acute exacerbation, unspecified whether persistent (Primary Dx); Peripheral neuropathy, idiopathic 01/27/2017 Patient Outreach [address] [place] [address] Lexi Hernandez LPN Care Transition; Care Management - Chart Review; ED Follow-Up Call 01/26/2017 7:31 PM EDT - 01/26/2017 8:53 PM EDT Emergency [facility] [address] [place] [address] Abel Velasquez MD Moderate asthma with acute exacerbation, unspecified whether persistent (Primary Dx) Discharge Disposition: Home or Self Care 01/16/2017 Refill SEP [address] [place] [address] Abdulkadir Montoya MD Medication Refill 10/17/2016 Patient Outreach [address] [place] [address] Lexi Hernandez LPN Care Transition; Care Management - Chart Review; ED Follow-Up Call 10/15/2016 9:08 PM EDT - 10/15/2016 9:53 PM EDT Emergency [facility] [address] [place] [address] Parveen Syed MD Asthma exacerbation (Primary Dx) Discharge Disposition: Home or Self Care 10/06/2016 Refill SEP [address] [place] [address] Abdiel Lucas MD Medication Refill 09/20/2016 Refill SEP [address] [place] [address] Abdiel Lucas MD Medication Refill 09/20/[address] [place] [address] Abdulkadir Montoya MD Medication Refill 09/19/[address] [place] [address] Abdiel Lucas MD Medication Refill 07/18/2016 4:20 PM EDT Office Visit [address] [place] [address] Abdulkadir Montoya MD Asthma exacerbation (Primary Dx) 07/04/2016 3:40 PM EDT Office Visit [address] [place] [address] Abdulkadir Montoya MD Acute bacterial sinusitis (Primary Dx) 06/06/2016 8:40 PM EST - 06/06/2016 11:59 PM EST Hospital Encounter EDG LAB VEL PROCESSING [facility] [place] [address] Peripheral neuropathy, idiopathic; Acquired hypothyroidism Discharge Disposition: Home or Self Care 06/06/2016 3:20 PM EST Office Visit [address] [place] [address] Abdulkadir Montoya MD Acquired hypothyroidism (Primary Dx); Peripheral neuropathy, idiopathic; Necrobiosis lipoidica, not elsewhere classified 04/05/2016 10:20 AM EST Office Visit [address] [place] [address] Abdulkadir Montoya MD Wound infection after surgery, initial encounter (Primary Dx) 04/04/2016 Patient Outreach [address] [place] [address] [facility] 03/27/2016 4:06 PM EST - 04/01/2016 2:28 PM EST Hospital Encounter EDG 2B1 NEUROSCIENCE [facility] [place] [address] Ramesh Garcia MD Discharge Disposition: Home or Self Care 03/29/2016 5:30 PM EST - 03/29/2016 6:48 PM EST Surgery EDG [facility] [place] [address] Ramesh Garcia MD LUMBAR MASS EXCISION/WOUND INCISION & DRAINAGE 03/29/2016 5:47 PM EST Anesthesia Event EDG [facility] [place] [address] Trinidad Jonas MD Collins, Angela, APRN 03/27/2016 8:51 AM EST - 03/27/2016 3:48 PM EST Emergency . [facility] [address] [place] [address] Samantha Lopez MD Bailey, Steven C, MD Postoperative abscess, initial encounter (Primary Dx) Discharge Disposition: Home or Self Care 03/24/2016 Refill SEP [address] [place] [address] Abdulkadir Montoya MD Medication Refill 03/11/2016 6:15 AM EST - 03/12/2016 9:43 AM EST Hospital Encounter EDG 2B1 NEUROSCIENCE [facility] [place] [address] Ramesh Garcia MD Discharge Disposition: Home or Self Care 03/11/2016 9:30 AM EST - 03/11/2016 11:30 AM EST Surgery EDG PERIOP [facility] [place] [address] Ramesh Garcia MD LUMBAR LAMINECTOMY/DISCECTOM Y (COVERS FACETECTOMY) 03/11/2016 10:16 AM EST Anesthesia Event EDG [facility] [place] [address] Jack Garvey MD Merkle Serey, Jennifer L, GERALDINE 03/07/2016 1:09 PM EST - 03/07/2016 11:59 PM EST Hospital Encounter EDG PRE-ADMIT TESTING [facility] [place] [address] Discharge Disposition: Home or Self Care 03/01/2016 1:43 PM EST - 03/01/2016 11:59 PM EST Hospital Encounter [facility] MRI [address] [place] [address] Ramesh Garcia MD Displacement of lumbar intervertebral disc without myelopathy; Cervicalgia Discharge Disposition: Home or Self Care 02/01/2016 Refill SEP [address] [place] [address] Abdiel Lucas MD Medication Refill 01/26/2016 Refill [place] [address] [place] [address] Abdiel Lucas MD Medication Refill 01/19/2016 Refill [place] [address] [place] [address] Abdulkadir Montoya MD Medication Refill 01/07/[address] [place] [address] Abdiel Lucas MD Medication Refill 01/06/2016 Refill SEP [address] [place] [address] Abdiel Lucas MD Medication Refill 01/05/[address] [place] [address] Antonella Winston PA-C Visit Follow Up 12/30/2015 4:12 PM EDT - 12/30/2015 11:59 PM EDT Hospital Encounter EDG LAB VEL PROCESSING [facility] [address] [place] [id number] Cellulitis and abscess of trunk Discharge Disposition: Home or Self Care 12/29/2015 3:00 PM EDT Office Visit [address] [place] [address] Antonella Winston PA-C Cellulitis and abscess of trunk (Primary Dx); Rash; Family history of diabetes mellitus; Polydipsia 12/18/[address] [place] [address] Abdulkadir Montoya MD Medication Refill 12/08/[address] [place] [address] Abdulkadir Montoya MD Back Pain 11/30/[address] [place] [address] Abdulkadir Montoya MD Visit Follow Up 11/27/2015 7:52 AM EDT - 11/27/2015 11:59 PM EDT Hospital Encounter [facility] MRI [address], [place] [address] Antonella Winston PA-C Numbness and tingling; Bilateral low back pain with sciatica, sciatica laterality unspecified Discharge Disposition: Home or Self Care 11/20/2015 8:20 AM EDT Office Visit [facility] Sujata [address] [place] [address] Antonella Winston PA-C Numbness and tingling (Primary Dx); Bilateral low back pain with sciatica, sciatica laterality unspecified 11/10/2015 10:35 AM EDT - 11/10/2015 11:59 PM EDT Hospital Encounter [facility] EMG [address] [place] [address] Emg, Erasto Edg Pain of left lower extremity (Primary Dx); Fall, subsequent encounter; Numbness in left leg Discharge Disposition: Home or Self Care 11/03/2015 Telephone [facility] Sujata [address] [place] [address] Abdulkadir Montoya MD Other (back pain) 10/29/2015 3:12 PM EDT - 10/29/2015 11:59 PM EDT Hospital Encounter [facility] [address] [place] [address] Fall, subsequent encounter; Left hip pain; Left-sided low back pain with left-sided sciatica Discharge Disposition: Home or Self Care 10/29/2015 11:40 AM EDT Office Visit [place] [place] [facility] [place] [address] Antonella Winston PA-C Fall, subsequent encounter (Primary Dx); Numbness in left leg; Left-sided low back pain with left-sided sciatica; Left hip pain 10/20/2015 10:10 AM EDT Office Visit [facility] [place] [facility] [place] [address] Abdulkadir Montoya MD Acute low back pain (Primary Dx) 10/15/2015 3:40 PM EDT Office Visit [place] [address] [place] [place] [address] Abdulkadir Montoya MD Sacroiliac joint dysfunction of left side (Primary Dx) 10/09/2015 2:59 PM EDT - 10/09/2015 11:59 PM EDT Hospital Encounter [facility] [address] [place] [address] Arthralgia of right hip Discharge Disposition: Home or Self Care 10/08/2015 Telephone [place] [address] [place] [place] [address] Abdulkadir Montoya MD Orders 10/07/2015 4:00 PM EDT Office Visit [place] [address] [place] [address] Grace Arroyo APRN Right hip pain (Primary Dx) 09/23/2015 9:00 AM EDT Office Visit [place] [address] [place] [place] [address] Antonella Winston PA-C Abscess of skin of abdomen (Primary Dx); Itching 08/21/2015 11:00 AM EDT Office Visit [facility] Johanny Turf [address] [place] [address] [address] [place] [address] Manuel Moran MD S/P laparoscopy (Primary Dx); Dysuria; S/P endometrial ablation; Endometritis 08/18/2015 Telephone [facility] [address] [place] [address] [address] [place] [address] Manuel Moran MD Other 08/13/2015 2:30 PM EDT Office Visit [facility] Johanny Turf [address] [place] [address] [address] [place] [address] Manuel Moran MD S/P laparoscopy (Primary Dx); S/P endometrial ablation; S/P unilateral salpingo-oophorectomy 07/30/2015 Patient Outreach [place] [address] [place] [place] [address] [facility] Follow Up 07/29/2015 1:47 PM EDT Anesthesia Event [facility] [address] [place] [address] Huy Mina MD Nacu, Bernard, SINA 07/29/2015 11:45 AM EDT - 07/29/2015 2:17 PM EDT Surgery [facility] [address] [place] [address] Manuel Moran MD DAVINCI ROBOTIC LAPAROSCOPY 07/27/2015 8:08 PM EDT - 07/29/2015 10:12 PM EDT Hospital Encounter Johanny [address] [place] [address] Manuel Moran MD Discharge Disposition: Home or Self Care 07/27/2015 3:06 PM EDT - 07/27/2015 7:37 PM EDT Emergency [facility] [address] [place] [place] [address] Parveen Rodriguez MD Pelvic pain in female (Primary Dx); Cyst of right ovary Discharge Disposition: Short Term Hospital 07/23/2015 3:40 PM EDT - 07/23/2015 11:59 PM EDT Hospital Encounter EDG LAB VEL PROCESSING [facility] [address] [place] [id number] Urinary tract infection with hematuria, site unspecified Discharge Disposition: Home or Self Care 07/23/2015 4:20 PM EDT Office Visit [facility] Sujata [facility] [place] [address] Antonella Winston PA-C Lower abdominal pain (Primary Dx); Abnormal menstrual cycle; Vaginal vault prolapse; Urinary tract infection with hematuria, site unspecified 05/09/2015 Refill [facility] Sujata [facility] [place] [address] Abdiel Lucas MD Medication Refill 04/13/2015 10:50 AM EST Office Visit [facility] [place] [address] [place] [place] [address] Abdulkadir Montoya MD Abscess (Primary Dx) 03/25/2015 Patient Outreach [address] [place] [address] Destinee Yang, RIPENING ROOM HAND Follow-Up Call 03/23/2015 8:21 PM EST - 03/23/2015 10:02 PM EST Emergency [facility] [address] [place] [address] Jack Wilder DO Asthma exacerbation (Primary Dx) Discharge Disposition: Home or Self Care 02/06/2015 Telephone SEP [place] [address] [place] [address] Abdulkadir Montoya MD Other 02/05/2015 7:51 PM EDT - 02/05/2015 11:59 PM EDT Hospital Encounter EDG LAB VEL PROCESSING [facility] [place] [address] Breast pain, right; Dysmenorrhea Discharge Disposition: Home or Self Care 02/05/2015 3:20 PM EDT Office Visit [facility] Sujata [address] [place] [address] Abdulkadir Montoya MD Moderate persistent asthma without complication (Primary Dx); Breast pain, right; Dysmenorrhea 02/04/2015 Patient Outreach [facility] Sujata [address] [place] [address] Destinee Yang, RIPENING ROOM HAND Follow-Up Call 02/03/2015 3:17 PM EDT - 02/03/2015 4:22 PM EDT Emergency [facility] [address] [place] [address] Parveen Syed MD Mild intermittent asthma without complication (Primary Dx) Discharge Disposition: Home or Self Care 01/20/2015 7:58 PM EDT - 01/20/2015 11:59 PM EDT Hospital Encounter EDG LAB VEL PROCESSING [facility] [place] [address] Acquired hypothyroidism Discharge Disposition: Home or Self Care 01/20/2015 2:40 PM EDT Clinical Support [facility] Sujata [address] [place] [address] Rula Birch CCMA Acquired hypothyroidism (Primary Dx) 01/01/2015 Telephone SEP [place] [address] [place] [address] Abdulkadir Montoya MD Cough 12/23/2014 10:10 AM EDT Office Visit [address] [place] [address] Abdulkadir Montoya MD Moderate persistent asthma without complication (Primary Dx); Acute bronchitis, unspecified organism 10/27/[address] [place] [address] Abdulkadir Montoya MD Results (HEMOCCULT CARDS X 3 ALL NEG) 10/27/2014 3:20 PM EDT Clinical Support [address] [place] [address] Kristin Acevedo Screening for malignant neoplasm of the rectum (Primary Dx) 10/22/[address] [place] [address] Abdulkadir Montoya MD Visit Follow Up 10/22/2014 Orders Only [address] [place] [address] Abdiel Lucas MD Iron deficiency anemia (Primary Dx) 10/20/2014 7:03 PM EDT - 10/20/2014 11:59 PM EDT Hospital Encounter EDG LAB VEL PROCESSING [facility] [place] [address] Anemia, unspecified anemia type Discharge Disposition: Home or Self Care 10/20/2014 Patient Outreach [facility] [address] [place] [address] Jeannie Wills LPN ED Follow-Up Call 10/20/2014 Patient Outreach [facility] [address] [place] [address] Tania Garcia, JEREL Care Management - Chart Review (hospital discharge reviewed) 10/20/2014 2:00 PM EDT Office Visit [address] [place] [address] Abdiel Lucas MD Hospital discharge follow-up (Primary Dx); Health care maintenance; Anemia, unspecified anemia type; Hypothyroidism, unspecified hypothyroidism type; Other chest pain; Gastroesophageal reflux disease without esophagitis 10/17/2014 12:28 AM EDT - 10/17/2014 6:02 PM EDT Hospital Encounter [facility] [place] [address] Javad Hernandez DO Discharge Disposition: Home or Self Care 10/16/2014 6:15 PM EDT - 10/16/2014 11:53 PM EDT Emergency [facility] [address] [place] [address] Ce Philippe DO Smith, Kenneth L, MD Acute chest pain (Primary Dx) Discharge Disposition: Short Term Hospital 10/16/2014 5:20 PM EDT Office Visit [place] [address] [place] [place] [address] Abdulkadir Montoya MD Acute chest pain (Primary Dx) 09/29/2014 Refill [place] [address] [place] [address] Abdulkadir Montoya MD Medication Refill 08/14/2014 Refill [place] [address] [place] [address] [place] [address] Abdulkadir Montoya MD Medication Refill 07/28/2014 1:45 PM EDT Office Visit [facility] [address] [place] [address] Jayda Hamilton MD Thoracic or lumbosacral neuritis or radiculitis, unspecified (Primary Dx) 07/04/2014 3:00 PM EDT Office Visit [facility] Sujata [facility] [place] [address] Abdulkadir Montoya MD Hypothyroidism (Primary Dx); GERD (gastroesophageal reflux disease) 06/30/2014 8:54 AM EDT - 06/30/2014 11:59 PM EDT Hospital Encounter [facility] [address] [place] [address] [address] [place] [address] Jim Penn MD Lumbar radiculopathy Discharge Disposition: Home or Self Care 06/17/2014 Telephone [facility] [address] [place] [address] Jim Penn MD Follow-up 06/03/2014 9:47 AM EST - 06/03/2014 11:59 PM EST Hospital Encounter [address] [place] [address] Lizzy Garza, PT Discharge Disposition: Home or Self Care 06/02/2014 8:47 AM EST - 06/02/2014 11:59 PM EST Hospital Encounter [facility] [address] [place] [address] [address] [place] [address] Jim Penn MD Lumbar radiculopathy Discharge Disposition: Home or Self Care 05/28/2014 9:03 AM EST - 05/28/2014 11:59 PM EST Hospital Encounter [address] [place] [address] Lizzy Garza, PT Lumbar radiculopathy (Primary Dx) Discharge Disposition: Home or Self Care 05/20/2014 3:00 PM EST Office Visit [address] [place] [address] Jim Penn MD Lumbar radiculopathy (Primary Dx) 04/10/2014 Refill SEP [place] [place] [address] Abdulkadir Montoya MD Medication Refill 04/08/2014 Telephone SEP [place] [address] Abdulkadir Montoya MD Other (discuss pain) 04/07/2014 Orders Only [facility]P [place] [place] [address] Abdulkadir Montoya MD Bulging disc (Primary Dx) 04/03/2014 8:39 AM EST - 04/03/2014 11:59 PM EST Hospital Encounter [facility] MRI [address] [place] [address] Abdulkadir Montoya MD Lumbosacral radiculopathy at L3; Lumbosacral radiculopathy at L5 Discharge Disposition: Home or Self Care 04/01/2014 11:50 AM EST Office Visit [address] [place] [address] Abdulkadir Montoya MD Acute bronchitis (Primary Dx); Hypothyroidism 03/25/[address] [place] [address] Abdulkadir Montoya MD Orders 03/24/2014 11:30 AM EST - 03/24/2014 11:59 PM EST Hospital Encounter [facility] [address] [place] [address] Aracely Luz MD Intervertebral lumbar disc disorder with myelopathy, lumbar region (Primary Dx); Neuralgia and neuritis; Headache; Facial numbness; Bilateral leg numbness Discharge Disposition: Home or Self Care 03/17/2014 10:20 AM EST Office Visit [address] [place] [address] Abdulkadir Montoya MD Neuralgia and neuritis (Primary Dx); Headache; Facial numbness; Bilateral leg numbness 03/06/2014 4:24 PM EST - 03/06/2014 11:59 PM EST Hospital Encounter [facility] [address] [place] [address] Low back pain Discharge Disposition: Home or Self Care 03/03/2014 10:50 AM EST Office Visit [address] [place] [address] Abdulkadir Montoya MD Asthma, moderate persistent, uncomplicated (Primary Dx); Low back pain 02/28/2014 3:39 PM EST - 02/28/2014 5:35 PM EST Emergency [facility] [address] [place] [address] Ce Philippe, DO Cough (Primary Dx) Discharge Disposition: Home or Self Care 02/10/2014 Patient Outreach [facility] [address] [place] [address] Destinee Yang RN Care Transition (ED follow up within 72 hours) 02/07/2014 8:24 PM EDT - 02/07/2014 9:21 PM EDT [facility] [address] [place] [address] Ugo Sr MD Low back pain (Primary Dx) Discharge Disposition: Home or Self Care 01/20/2014 Telephone SEP [address] [place] [address] Abdulkadir Montoya MD Other 01/07/2014 Refill SEP [address] [place] [address] Abdulkadir Montoya MD Medication Refill 11/12/2013 4:43 PM EDT - 11/12/2013 11:59 PM EDT Hospital Encounter EDG LAB VEL PROCESSING [facility] [address] [place] [id number] Hypothyroidism; Asthma, moderate persistent, uncomplicated; Weight gain Discharge Disposition: Home or Self Care 11/12/2013 10:30 AM EDT Office Visit SEP [address] [place] [address] Abdulkadir Montoya MD Asthma, moderate persistent, uncomplicated (Primary Dx); Hypothyroidism; Weight gain 11/11/2013 Telephone [facility] [address] [place] [address] Destinee Yang RN Care Transition 11/08/2013 3:38 PM EDT - 11/08/2013 4:49 PM EDT [facility] Emergency [address] [place] [address] John Alfredo MD Asthma exacerbation, unspecified asthma severity (Primary Dx) Discharge Disposition: Home or Self Care 09/26/2013 Refill SEP [address] [place] [address] Abdulkadir Montoya MD Medication Refill 09/09/2013 9:33 PM EDT - 09/09/2013 10:32 PM EDT Emergency [facility] [address] [place] [address] William Hawk MD Shingles (Primary Dx) Discharge Disposition: Home or Self Care 07/03/2013 Refill [place] [address] [place] [address] Abdulkadir Montoya MD Medication Refill 07/01/2013 10:20 AM EDT Office Visit [place] [address] [place] [address] Abdulkadir Montoya MD Abdominal pain (Primary Dx) 05/20/2013 8:50 AM EST Office Visit [place] [address] [place] [address] Abdulkadir Montoya MD Meralgia paresthetica of left side (Primary Dx); Asthma; Acute bronchitis 03/16/2013 Refill [place] [address] [place] [address] Abdulkadir Montoya MD Medication Refill 02/04/2013 8:00 AM EDT - 02/04/2013 8:30 AM EDT Surgery [facility] [address] [place] [address] Kendall Garcia MD SHOULDER ARTHROSCOPY ROTATOR CUFF REPAIR/ SUBACROMIAL DECOMPRESSION/ MACARIO 02/04/2013 6:01 AM EDT - 02/04/2013 11:40 AM EDT Hospital Encounter [facility] SAME DAY SURGERY [address] [place] [address] Kendall Garcia MD Discharge Disposition: Home or Self Care 01/18/2013 3:13 PM EDT - 01/18/2013 5:00 PM EDT Emergency [facility] [address] [facility] [place] [address] Abdiel Uribe MD Contusion (Primary Dx) Discharge Disposition: Home or Self Care 01/16/2013 11:19 AM EDT - 01/16/2013 11:59 PM EDT Hospital Encounter [facility] [address] [place] [address] [address] Abdulkadir Montoya MD Right shoulder pain Discharge Disposition: Home or Self Care 01/14/[address] [place] [address] Abdulkadir Montoya MD Other 01/08/2013 9:00 AM EDT - 01/08/2013 11:59 PM EDT Hospital Encounter [facility] XRAY [address] [place] [address] Right shoulder pain Discharge Disposition: Home or Self Care 01/07/2013 12:10 PM EDT Office Visit [address] [place] [address] Abdulkadir Montoya MD Right shoulder pain (Primary Dx); Rotator cuff tear 01/07/[address] [place] [address] Abdulkadir Montoya MD Shoulder Injury 12/09/[address] [place] [address] Abdulkadir Montoya MD Medication Refill 08/30/[address] [place] [address] Abdulkadir Montoya MD Medication Refill 08/23/2012 11:52 AM EDT - 08/23/2012 12:45 PM EDT Emergency [facility] [address] [place] [address] Jj Lozada MD Foot pain (Primary Dx); Plantar fasciitis Discharge Disposition: Home or Self Care 08/14/2012 1:40 PM EDT Office Visit [address] [place] [address] Abdulkadir Montoya MD Peripheral neuropathy (Primary Dx) 06/28/2012 2:40 PM EST Office Visit SEP Gen Surgery [facility] [address] [place] [address] Faith Navas MD Post-operative state (Primary Dx) 06/18/2012 10:45 AM EST - 06/18/2012 11:45 AM EST Surgery [facility] [address] [place] [address] Faith Navas MD LAPAROSCOPIC CHOLECYSTECTOMY POSSIBLE OPEN 06/18/2012 8:27 AM EST - 06/18/2012 5:13 PM EST Hospital Encounter [facility] SAME DAY SURGERY [address] [place] [address] Faith Navas MD Discharge Disposition: Home or Self Care 06/15/2012 Telephone SEP Gen Surg [facility]G [address] [facility] [address] [place] [phone] Randa Boyer MA Visit Follow Up 06/15/2012 Telephone SEP Gen Surg EDG 271 20 [facility] [address] [place] [phone] Faith Navas MD Surgery 06/14/2012 9:20 AM EST Office Visit SEP Gen Surgery [facility] [address] [place] [address] Faith Navas MD Symptomatic cholelithiasis (Primary Dx) 05/30/2012 4:00 PM EST Office Visit [facility] [address] [place] [address] Abdulkadir Montoya MD Asthma (Primary Dx) 05/23/2012 Refill [facility] [address] [place] [address] Abdulkadir Montoya MD Medication Refill 04/27/2012 Refill SEP [place] [facility] [place] [address] Abdulkadir Montoya MD Medication Refill 03/06/2012 10:20 AM EST Office Visit SEP Gen Surgery [facility]TT [address] [place] [address] Faith Navas MD Biliary colic (Primary Dx) 03/02/2012 9:30 AM EST Office Visit [facility] [address] [place] [address] Alondra Oates MD URI (upper respiratory infection) (Primary Dx); Asthma; Hypothyroidism 02/22/[address] [place] [address] Abdulkadir Montoya MD Medication Refill 08/04/2011 Orders Only [address] [place] [address] Abdulkadir Montoya MD Thyroid disease (Primary Dx) 07/28/2011 3:15 PM EDT - 07/28/2011 11:59 PM EDT Hospital Encounter EDG LAB VEL PROCESSING [facility] [place] [address] Hypothyroid Discharge Disposition: Home or Self Care 07/28/2011 10:30 AM EDT Office Visit [address] [place] [address] Abdulkadir Montoya MD Hypothyroid (Primary Dx); Acute gastroenteritis 05/23/2011 4:40 PM EST Office Visit [address] [place] [address] Abdulkadir Montoya MD Acute sinusitis (Primary Dx); Asthma; Dysmenorrhea 04/29/2011 11:00 AM EST Office Visit [address] [place] [address] Abdulkadir Montoya MD Dressing change/suture removal (Primary Dx) 04/28/2011 5:42 PM EST - 04/28/2011 11:59 PM EST Hospital Encounter EDG LAB VEL PROCESSING [facility] [place] [address] MRSA infection Discharge Disposition: Home or Self Care 04/27/2011 4:20 PM EST Office Visit [address] [place] [address] Abdulkadir Montoya MD MRSA infection (Primary Dx) 04/25/2011 9:10 AM EST Office Visit [address] [place] [address] Abdulkadir Montoya MD Infected sebaceous cyst of skin (Primary Dx) 03/23/2011 5:38 PM EST - 03/23/2011 6:22 PM EST Emergency [facility] [address] [place] [address] Asthma; Bronchitis Discharge Disposition: Home or Self Care 10/12/2010 4:00 PM EDT Office Visit SEP [address] [place], [place] [address] Abdulkadir Montoya MD Wrist sprain (Primary Dx) 08/23/2010 Telephone SEP [address] [place], [place] [address] Abdulkadir Montoya MD URI 02/16/2010 Abstract SEP [address] [place] [address] Abdulkadir Montoya MD 01/14/2010 3:54 PM EDT - 01/14/2010 5:00 PM EDT [facility] [address] [place] [address] Nicolas Ríos MD Asthma with acute exacerbation Discharge Disposition: Home or Self Care 12/23/2008 4:14 PM EDT - 12/24/2008 7:08 PM EDT Hospital Encounter [facility], DO Jan Mcallister Brian W, MD 07/04/2008 [...] but patient concerned about taking Amoxil. Medications cetirizine (ZYRTEC) 10 mg Oral TabletIndications :seasonal allergic rhinitis Take 10 mg by mouth daily. Indications: seasonal runny nose Active EPINEPHrine (EPIPEN) 0.3 mg/0.3 mL Inj Auto-Injector Inject 0.3 mL into the muscle as needed for Anaphylaxis. 2 Each 025 Active albuterol-ipratro pium (DUO-NEB) 3 mg-0.5 mg(2.5 mg base)/3 mL Inhl Solution for Nebulization Take 3 mL by nebulization 0800, 1200, 1600, 2000. 60 Each 025 Active albuterol-budeson gabriel (AIRSUPRA) 90-80 mcg/actuation Inhl HFA Aerosol InhalerIndication s:Mild intermittent asthma with acute exacerbation Inhale 2 Puffs into the lungs every 6 hours as needed. 10.7 g 1 025 Active hydroxychloroquin e (PLAQUENIL) 200 mg Oral TabletIndications :YNES positive TAKE 1 TABLET BY MOUTH EVERY DAY 30 Tablet 5 025 Active LEVOthyroxine (SYNTHROID) 175 mcg Oral Tablet Take 1 Tablet by mouth daily. 90 Tablet 3 025 Active UNABLE TO FIND Inject 10 mg under the skin once a week. Med Name: compounded GLP-1 RA Tirzepatide Active gabapentin (NEURONTIN) 400 mg Oral Capsule Take 1 Capsule by mouth 3 times daily for 90 days. 90 Capsule 2 025 2025 Active PARoxetine (PAXIL) 20 mg Oral Tablet TAKE 1 TABLET BY MOUTH EVERY DAY 100 Tablet 1 025 Active rizatriptan (MAXALT) 10 mg Oral Tablet TAKE 1 TABLET BY MOUTH DAILY NEEDED (HEADACHE) FOR UP TO 30 DAYS. MAY REPEAT IN 2 HOURS IF NEEDED 9 Tablet 1 025 2024 Active chlorhexidine (PERIDEX) 0.12 % MM Mouthwash Take 15 mL by mouth 3 times daily. Active methylPREDNISolon e (MEDROL DOSPACK) 4 mg Oral Tablets, Dose PackIndications:A cute pain of left knee,Osteoarthrit is of left knee, unspecified osteoarthritis type follow package directions 21 Tablet Active rOPINIRole (REQUIP) 1 mg Oral TabletIndications :Restless legs syndrome (RLS) TAKE 1 TABLET BY MOUTH EVERY DAY AT NIGHT 90 Tablet 1 Active tiZANidine (ZANAFLEX) 4 mg Oral Tablet TAKE 1 TABLET BY MOUTH NIGHTLY NEEDED FOR MUSCLE SPASMS. 30 Tablet Active omeprazole (PRILOSEC) 40 mg Oral Capsule, Delayed Release(E.C.)Clary cations:Abdominal pain, LUQ (left upper quadrant) TAKE 1 CAPSULE BY MOUTH EVERY DAY 90 Capsule 3 Active doxycycline hyclate (VIBRA-TABS) 100 mg Oral Tablet Take 1 Tablet by mouth 2 times daily for 10 days. 20 Tablet 2025 Active omeprazole (PRILOSEC) 40 mg Oral Capsule, Delayed Release(E.C.)Clary cations:Abdominal pain, LUQ (left upper quadrant) Take 1 Capsule by mouth daily. 90 Capsule 3 025 2024 Discontinued rOPINIRole (REQUIP) 1 mg Oral TabletIndications :Restless legs syndrome (RLS) TAKE 1 TABLET BY MOUTH EVERY DAY AT NIGHT 90 Tablet 1 025 2024 Discontinued rizatriptan (MAXALT) 10 mg Oral Tablet TAKE 1 TABLET BY MOUTH DAILY NEEDED (HEADACHE) FOR UP TO 30 DAYS. MAY REPEAT IN 2 HOURS IF NEEDED 10 Tablet 025 2024 Discontinued rizatriptan (MAXALT) 10 mg Oral Tablet TAKE 1 TABLET BY MOUTH DAILY NEEDED (HEADACHE) FOR UP TO 30 DAYS. MAY REPEAT IN 2 HOURS IF NEEDED 025 2024 Discontinued(P atient Reported not taking medication) HYDROcodone-aceta minophen (NORCO) 5-325 mg Oral Tablet Take 1 Tablet by mouth every 6 hours as needed. for pain 2024 Discontinued(D ELETE-Therapy completed) tiZANidine (ZANAFLEX) 4 mg Oral Tablet TAKE 1 TABLET BY MOUTH NIGHTLY NEEDED FOR MUSCLE SPASMS. 30 Tablet 025 2024 Discontinued azithromycin (ZITHROMAX) 250 mg Oral TabletIndications :URI, acute Take 2 tablets (500 mg) on Day 1, followed by 1 tablet (250 mg) once daily on Days 2 through 5. 6 Tablet 025 2024 benzonatate (TESSALON) 200 mg Oral CapsuleIndication s:URI, acute Take 1 Capsule by mouth 3 times daily as needed for Cough for up to 10 days. 30 Capsule 025 2024 Active Problems Problem Noted Date Diagnosed Date [...] will marcelino OP CBT for this issue Female cystocele 01/24/2024 Rectocele 01/24/2024 Stress incontinence [...] 06/14/2022 HGBA1C 5.8 (H) 04/30/2020 Diet control Assessment & Plan (02/18/2025 2:02 PM EDT): Lab Results Component Value Date HGBA1C 6.2 (H) 04/26/2024 HGBA1C 5.9 10/28/2022 HGBA1C 5.8 (H) 06/14/2022 Diet control Also on GLP for weight loss. Orders: HEMOGLOBIN A1C; Future Stasis dermatitis of both legs 07/02/2021 Assessment & Plan (07/02/2021 1:16 PM EST): Compression stocking Limit salt Keep skin hydrated Medication management 04/30/2020 Overview (12/21/2022): Gabapentin for chronic pain/neuropathy CSA: Signed 04/30/20 HB-1: Collected 06/14/22 OFV: 12/21/22 Cholo: reviewed, as expected, see flowsheet. Assessment & Plan (02/18/2025 2:02 PM EDT): Orders: COMPLIANCE PANEL, URINE; Future Situational anxiety 01/10/2019 Overview (06/14/2022): Stable on low dose paxil. Chronic midline low back pain with left-sided sc iatica 07/03/2018 Overview (06/14/2022): S/p laminectomy/discectomy 2014 Chronic pain. Stable on gabapentin and mobic. Assessment & Plan (02/18/2025 2:02 PM EDT): At lowest tolerated dose of gabapentin and NSAIDS Tolerating well Med mgmt reviewed and updated. Orders: COMPLIANCE PANEL, URINE; Future Assessment & Plan (08/23/2019 3:59 PM EDT): Having acute on chronic pain. No new injury. No fever. Normal neuro exam. Will treat acute symptoms with steroids, switch to flexeril and given short course of tramadol for moderate to severe pain. Cautioned on risk and side effects. cholo reviewed and as expected. 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 Assessment & Plan (02/18/2025 2:02 PM EDT): - managed by Endocrinology Assessment & Plan (11/17/2024 10:25 AM EDT): TSH ordered Asthma 05/23/2011 Class 3 severe obesity due t o excess calories with serious comorbidity and body mass index (BMI) of 50.0 to 59.9 in adult Overview (10/28/2022): Unable to get GLP covered. Recommend bariatric follow-up, referral placed Assessment & Plan (02/18/2025 2:02 PM EDT): - successful weight loss with GLP. She is ordering from compound pharmacy. Aware of risk. Orders: VITAMIN B12/ FOLIC ACID; Future VITAMIN D 25 HYDROXY; Future Assessment & Plan (11/17/2024 10:25 AM EDT): Complicates all issues Resolved Problems Problem Noted Date Diagnosed Date Resolved Date Seizure 11/17/2024 02/18/2025 Non-recurrent acute suppurat alirio otitis media of right ear without spontaneous rupture of tympanic membrane 09/01/2023 03/13/2024 Acute respiratory failure with hypoxia 04/04/2023 03/13/2024 Multifocal pneumonia 04/03/2023 024 Abnormal uterine bleeding (AUB) 07/28/2020 09/08/2020 Overview (07/28/2020): Added automatically from request for surgery [id number] History of endometrial ablation 07/28/2020 09/08/2020 Overview (07/28/2020): Added automatically from request for surgery [id number] Intramural leiomyoma of uterus 07/28/2020 09/08/2020 Overview (07/28/2020): Added automatically from request for surgery [id number] Post-menopause bleeding 04/30/202008/22 Overview (04/30/2020): S/p partial [...] Immunizations Immunization Administration Dates Next Due Influenza Seasonal Injectable PF 02/18/2025 Influenza Vaccine Quadrivalent 02/28/2018 Influenza Vaccine, Unspecifi ed Formulation 01/25/2013 Influenza, Injectable, MDCK, PF, Quadrivalent 04/03/2023(Deferred: Contraindication - has pneumonia) MMR 12/24/1989 Pneumococcal Conjugate Vacci ne 20 Valent 02/18/2025 Pneumococcal Polysaccharide 23 Valent 02/28/2018 Polio, Unspecified Formulation 12/13/1985 Td, Unspecified Formulation 06/22/1996, 6 Tdap 10/20/2014 Family History Medical History Relation Name Comments Thyroid Disease Brother 1 Terrence Monteiro jr No Known Problems Brother 2 Jensen No Known Problems Brother 3 Shawn No Known Problems Brother 4 Scar Asthma Father Terrence monteiro Diabetes Father Terrence monteiro Heart Disease Father Terrence monteiro High Blood Pressure Father Terrence monteiro High Cholesterol Father Terrence monteiro Hypertension Father Terrence monteiro Kidney Disease Father Terrence monteiro Stroke Father Terrence heatontor Heart Disease Maternal Grandmother Arthritis Mother Tomasa Monte[place] hyperparathyroidism Mother Tomasa Monteiro Diabetes Paternal Grandmother Kassandra Angel Heart Disease Paternal Grandmother Kassandra Angel High Blood Pressure Paternal Grandmother Kassandra Manuel s Diabetes Paternal Uncle Brayden Monteiro Heart Disease Paternal Uncle Brayden Monteiro High Blood Pressure Paternal Uncle Brayden Monte[place] High Cholesterol Paternal Uncle Brayden Monteiro Anesth Problems Neg Hx Relation Name Status Comments Brother 1 Terrence Monte[place] jr Alive Brother 2 [place] Alive Brother 3 Shawn Alive Brother 4 Scar Alive Father Terrence heatontor Alive dad has histor y of blood clot in his arm. Maternal Grandfather Maternal Grandmother Mother Tomasa Monte[place] Alive mother has a history of blood clots in legs.. Paternal Grandfather Paternal Grandmother Kassandra Angel Paternal Uncle Brayden Monte[place] Alive Social History Smoking Status as of 04/22/2025 Tobacco Use Types Packs/Day Years Used Date Smoking Tobacco: Never Assessed Overall Financial Resource Strain (CARDIA) Answe r Date Recorded How hard is it for you to pa y for the very basics like food, housing, medical care, and heating? Not hard at all 04/04/2023 PHQ-2 Answer Date Recorded PHQ-2 Total Score 0 02/18/2025 [facility] - Occupational Stress [...] Mass Index 58.41 04/21/2025 3:41 PM EST Plan of Treatment Upcoming Encounters Date Type Department Care Team (Late st Contact Info) Description 05/27/2025 9:30 AM EST Office Visit Dusty MCCLOUD [address] [place] [address] Lupillo Ponce, EMELY [address] [place], [place] [id number] 06/09/2025 11:30 AM EST Appointment [place] [address] [place] [address] Richar Reed, PA-C [address] [address] 08/11/2025 1:50 PM EDT Office Visit [facility] [address] [place] [address] Judith Lomax MD [address] [facility] [address] [place] [address] Medical Devices Implanted Type Area Contact Lens Flashing Puncher Device Identifier Shelf Expiration Date Model / Serial / Lot [employer] Advance Healix 5.5 Br - [id number] Implanted:Qty: 1 on 02/04/2013 by Kendall Garcia MD at [facility] Right: Shoulder J&J:ETHICON:AASHISH EK PRDT [id number] 08/22/2015 [id number] / / [id number] System Fixation Speedbridge Jumpstart Biocomposite Achilles - [id number] Implanted:Qty: 1 on 09/28/2018 by Parveen Marsh MD at [facility] Left: Achilles Tendon ARTHREX 03/23/2020 [id number] J-CP / / [id number] Desara Blue Tv Transvaginal Mesh Sling - [id number] Implanted:Qty: 1 on 04/04/2024 by Elmira Mendoza MD at [facility] 05/03/2026 [id number] / / [id number] Procedures Procedure Name Priority Date/Time Associated Diagnosis Comments POCT CEPHEID SARS COV-2 RNA + FLU A/B + RSV Routine 04/21/2025 4:17 PM EST Fever, unspecified fever cause XR PELVIS Routine 04/11/2025 9:16 AM EST Osteoarthritis of left knee, unspecified osteoarthritis type POCT CEPHEID SARS COV-2 RNA + FLU A/B + RSV Routine 04/04/2025 10:31 AM EST Acute cough XR KNEE LEFT AP LATERAL AND SUNRISE STANDING Routine 03/27/2025 2:23 PM EST Acute pain of left knee COMPLIANCE PANEL, URINE Routine 02/18/2025 2:09 PM EDT Chronic midline low back pain with left-sided sciatica Medication management VITAMIN D 25 HYDROXY Routine 02/18/2025 2:09 PM EDT Class 3 severe obesity due to excess calories with serious comorbidity and body mass index (BMI) of 50.0 to 59.9 in adult (HCC) VITAMIN B12/ FOLIC ACID Routine 02/18/2025 2:09 PM EDT Class 3 severe obesity due to excess calories with serious comorbidity and body mass index (BMI) of 50.0 to 59.9 in adult (HCC) LIPID PANEL REFLEX Routine 02/18/2025 2:09 PM EDT Lipid screening HEMOGLOBIN A1C Routine 02/18/2025 2:09 PM EDT Prediabetes COMPREHENSIVE METABOLIC PANEL Routine 02/18/2025 2:09 PM EDT Annual physical exam CBC WITH DIFF Routine 02/18/2025 2:09 PM EDT Annual physical exam THYROID STIMULATING HORMONE Routine 01/17/2025 10:50 AM EDT 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 URINE CULTURE (NO STAIN) Routine 12/16/2024 9:16 AM EDT Dysuria SEP URINALYSIS POC Routine 12/16/2024 9:13 AM EDT Dysuria MRI BRAIN W WO CONTRAST Routine 11/27/2024 8:22 AM EDT Seizure-like activity (HCC) COMPREHENSIVE METABOLIC PANEL [...] YO'S DEFORMITYCALCANEUS; Surgeon: Parveen Marsh MD; Location: [facility] MAIN OR; Service:Orthopedics APPENDECTOMY BACK SURGERY laminectomy, discectomy SECTION CHOLECYSTECTOMY, LAPAROSCOPIC 06/18/2012 LAPAROSCOPIC CHOLECYSTECTOMY ; Surgeon: Faith Navas MD; Location:[facility] MAIN OR; Service: General CYSTOCELE REPAIR N/A 04/04/2024 Anterior Repair; Posterior Repair; Placement of Retropubic MidurethralMesh Sling; Cystoscopy; Surgeon: Elmira Mendoza MD; Location:[facility] MAIN OR; Service: Gynecology DENTAL SURGERY 01/29/2013 premolar DILATION AND CURETTAGE OF UTERUS ENDOMETRIAL ABLATION N/A 07/29/2015 Surgeon: Manuel Moran MD; Location: [facility] MAIN OR; Service: Gynecology HYSTERECTOMY Left 08/11/2020 ROBOTIC ASSISTED TOTAL LAPAROSCOPIC HYSTERECTOMY LEFT OOPHORECTOMY ;Surgeon: Beverly Hernandez DO; Location: [facility] MAIN OR; Service:Gynecology HYSTEROSCOPY August LAPAROSCOPY Right 07/29/2015 [facility] ROBOTIC ASSISTED LAPAROSCOPY BILATERAL SALPINGECTOMY, RIGHTOOPHERECTOMY WITH DILATION AND CURETTAGE HYSTEROSCOPY ABLATION WITHNOVASURE; Surgeon: Manuel Moran MD; Location: [facility] MAIN OR; Service:Gynecology LUMBAR DISC SURGERY Bilateral 03/11/2016 LUMBAR LAMINECTOMY AND DISCECTOMY LEFT L5/S1 ; Surgeon: Yogesh Garcia MD; Location: [facility] MAIN OR; Service: Neurosurgery OVARY REMOVAL Right SHOULDER ARTHROSCOPY Right 02/04/2013 RIGHT SHOULDER ARTHROSCOPY, ROTATOR CUFF REPAIR, SUBACROMIALDECOMPRESSION, MACARIO, DEBRIDEMENT ; Surgeon: Kendall Garcia MD;Location: [facility]; Service: Orthopedics SHOULDER SURGERY SOFT TISSUE BIOPSY N/A 03/29/2016 INCISION AND DRAINAGE LUMBAR WOUND; Surgeon: Ramesh Garcia MD;Location: [facility] MAIN OR; Service: Neurosurgery SPINE SURGERY TONSILLECTOMY TUBAL LIGATION URETHROPEXY N/A 04/04/2024 .; Surgeon: Elmira Mendoza MD; Location: [facility] MA[facility];Service: Gynecology Medications No current facility-administered [...] asneeded for Muscle spasms. 30 Tablet 0 Uafbvyqvceurogv-Najdwdzrp-QL 2-30-10 mg/5 mL Oral Syrup Take 10 mL bymouth every 4 hours as needed (Cough, Nasal Congestion, Allergies).(Patient not taking: Reported on 11/16/2024) 240 mL 1 cetirizine (ZYRTEC) 10 mg Oral Tablet Take 10 mg by mouth daily.Indications: seasonal runny nose COLLAGEN MISC 2 Tablets by [facility].(Non-Drug; Combo Route) route daily.Collagen Peptide Multivitamin docusate [...] - [facility]. - No [...] to Anesthesia: Patient needs Paralysis for Procedure UT CYSTOURETHROSCOPY 04/04/2024 12:16 PM EST Female cystocele Rectocele Stress incontinence in female Special Needs *Note to Anesthesia: Patient needs Paralysis for Procedure UT SLING OPERATION STRESS INCONTINENCE 04/04/2024 12:16 PM EST Female cystocele Rectocele Stress incontinence in female Special Needs *Note to Anesthesia: Patient needs Paralysis for Procedure UT CMBND ANTERPOST COLPORRAPHY W/CYSTO 04/04/2024 12:16 PM EST Female cystocele Rectocele Stress incontinence in female Special Needs *Note to Anesthesia: Patient needs Paralysis for Procedure XR CHEST PA AND LATERAL FELI 03/14/2024 2:39 PM EST [id number] A/B Routine 03/14/2024 2:35 PM EST SALINE [...] EST CBC STAT 04/03/2023 12:50 PM EST [id number] A/B Routine 04/03/2023 12:50 PM EST EK [...] 10:00 AM EDT Positive YNES (antinuclear antibody) [id number] 1 ABS, IGG/IGM/IGA -REF LAB Routine 02/09/2023 [...] PM EDT Acute pain of left knee UT ARTHROCENTESIS ASPIR&/INJ MAJOR JT/BURSA W/O US Routine [...] Routine 04/30/2020 10:10 AM EST Post-menopause bleeding [facility] [facility] CYTOLOGY REQUEST (PAP ONLY) Routine 04/30/2020 9:55 AM EST Post-menopause bleeding Cervical cancer screening [facility] DRUM CLEANER CYTOLOGY ORDER Routine 04/30/2020 9:55 AM EST [...] AIRWAY PLACEMENT Routine 11/02/2018 7:35 AM EDT INCISION AND DRAINAGE, ANKLE/ HEEL/CALCANEUS 11/02/2018 7:24 AM EDT Deep postoperative wound [...] left Special Needs PRONE, MICRO SAW, ARTHREX ACHILLIES SPEEDBRIDGE, ARTHREX NOTIFIED 6/5 MAS ESTROGENS, FRACTIONATED [...] AM ESTThis note is in progress. Dictated [id number] 1) Lumbar wound infection: S/P OR and [...] Primary Care Provider: Abdulkadir Montoya MD (General) Emergency Response Technician: None Chief Complaint: Chest pain Referring MD: [...] Cholecystectomy, laparoscopic 06/18/2012 Family History: Father - [place] - age 35-40 Maternal grandmother - [place], age 60's Social History: Reports that she [...] follow-up from Dr. Nieto / Jany Desai, SAUTE CHEF 10/17/2014 I have reviewed the chief complaint [...] should have an angiogram. Elton Carmichael MD [facility] TROPONIN-T STAT 10/16/2014 8:39 PM EDT EK [...] region Rotator cuff (capsule) sprain Special Needs CPT;60999 [id number] EK EKG 12 LEAD Routine 02/04/2013 6:48 [...] of cholecystitis or obstruction Special Needs CPT 13182 RANDA DIFFERENTIAL Routine 06/18/2012 9:14 AM EST [...] Routine 10/29/2004 12:00 AM EDT Results * POCT CEPHEID SARS COV-2 RNA + FLU A/B + RSV (04/21/2025 4:17 PM EST) Only the most recent of2 resultswithin the time period is included. SARS COV-2 RNA Negative Negative, Invalid SEP OFFICE INFLUENZA A Negative Negative, Invalid SEP OFFICE INFLUENZA B Negative Negative, Invalid SEP OFFICE RSV Negative Negative, Invalid SEP OFFICE Lot Number 0 SEP OFFICE Expiration Date 0 SEP OFFICE SeriAl # SEP OFFICE Control Line SEP OFFICE 04/21/2025 4:17 PM EST us Abdulkadir Montoya MD POINT OF CARE TEST ORDERABLES Final Result SEP OFFICE * XR PELVIS (04/11/2025 9:16 AM EST) Narrative Genericuser, Audit - 04/11/2025 9:16 AM EST Please see physician's note from office encounter for x-ray imaging result us Leonides Rea MD G DIAGNOSTIC IMAGING ORDER TASHA Final Result * XR KNEE LEFT AP LATERAL AND SUNRISE STANDING (03/27/2025 2:23 PM EST) Only the most recent of2 resultswithin the time period is included. Narrative Genericuser, Audit - 03/27/2025 2:23 PM EST Please see physician's note from office encounter for x-ray imaging result us Christina BECKMAN IMG DIAGNOSTIC IMAGING ORDER TASHA Final Result * (ABNORMAL) COMPLIANCE PANEL, URINE (02/18/2025 2:09 PM EDT) Only the most recent of4 resultswithin the time period is included. [facility] Medications Expected Gabapentin 01/24 9:30 AM EDT [facility] Barbiturates Absent Cutoff 200 ng/mL 02/20/2025 9:30 AM EDT [facility] THC <10 Cutoff 10 ng/mL ng/mL 02/20/2025 9:30 AM EDT [facility] Comment:3-ajymzhs-ovijkksunu cannabinol; does not distinguish between prescribed and illicit forms THC Glucuronide <10 Cutoff 10 ng/mL ng/mL 02/20/2025 9:30 AM EDT [facility] Comment:Metabolite of THC Amphetamine <50 Cutoff 50 ng/mL ng/mL 02/20/2025 9:30 AM EDT [facility] Comment:e.g., Adderall, Vyva nse, Dexedrine, Obetrol MDA <50 Cutoff 50 ng/mL ng/mL 02/20/2025 9:30 AM EDT [facility] Comment:Metabolite of MDMA, and MDEA MDEA <50 Cutoff 50 ng/mL ng/mL 02/20/2025 9:30 AM EDT [facility] Comment:e.g., Gin MDMA <50 Cutoff 50 ng/mL ng/mL 02/20/2025 9:30 AM EDT [facility] Comment:e.g., Ecstasy, Anastasia Methamphetamine <50 Cutoff 50 ng/mL ng/mL 02/20/2025 9:30 AM EDT [facility] Comment:d- and l- isomers ar e not distinguished by this test; may reflect Danyel's inhaler, Desoxyn, Selegiline, or illicit source Phentermine <50 Cutoff 50 ng/mL ng/mL 02/20/2025 9:30 AM EDT [facility] Comment:e.g., Adipex, Lomair a, Ionamin,Fastin,Zantryl Gabapentin >2,000(H) Cutoff 50 ng/mL ng/mL 02/20/2025 9:30 AM EDT [facility] Comment:e.g, Neurontin Pregabalin <50 Cutoff 50 ng/mL ng/mL 02/20/2025 9:30 AM EDT [facility] Comment:Lyrica Alprazolam <8 Cutoff 8 ng/mL ng/mL 02/20/2025 9:30 AM EDT [facility] Comment:e.g, Xanax, Niravam alpha-Hydroxyalprazolam <25 Cutoff 25 ng/mL ng/mL 02/20/2025 9:30 AM EDT [facility] Comment:Metabolite of Alpraz olam Clonazepam <10 Cutoff 10 ng/mL ng/mL 02/20/2025 9:30 AM EDT [facility] Comment:e.g., Klonopin, Clon opin 7-Aminoclonazepam <25 Cutoff 25 ng/mL ng/mL 02/20/2025 9:30 AM EDT [facility] Comment:Metabolite of Clonaz epam Diazepam <10 Cutoff 10 ng/mL ng/mL 02/20/2025 9:30 AM EDT [facility] Comment:e.g, Valium, Diastat Nordiazepam <25 Cutoff 25 ng/mL ng/mL 02/20/2025 9:30 AM EDT [facility] Comment:Metabolite of Chlord iazepoxide(Librium), Clorazepate(Tranxene), Diazepam, Halazepam, (Alapryl), Prazepam(Centrax) Flunitrazepam <50 Cutoff 50 ng/mL ng/mL 02/20/2025 9:30 AM EDT [facility] Comment:e.g.,Rohypnol, Narco zep 7-Aminoflunitrazepam <50 Cutoff 50 ng/mL ng/mL 02/20/2025 9:30 AM EDT [facility] Comment:Metabolite of Flunit razepam Flurazepam <50 Cutoff 50 ng/mL ng/mL 02/20/2025 9:30 AM EDT [facility] Comment:e.g., [place] Hydroxyethylflurazepam <50 Cutoff 50 ng/mL ng/mL 02/20/2025 9:30 AM EDT [facility] Comment:Metabolite of Fluraz epam Lorazepam <50 Cutoff 50 ng/mL ng/mL 02/20/2025 9:30 AM EDT [facility] Comment:e.g., Ativan Lorazepam Glucuronide <50 Cutoff 50 ng/mL ng/mL 02/20/2025 9:30 AM EDT [facility] Comment:Metabolite of Loraze jess Midazolam <50 Cutoff 50 ng/mL ng/mL 02/20/2025 9:30 AM EDT [facility] Comment:e.g., Versed alpha-hydroxymidazolam <50 Cutoff 50 ng/mL ng/mL 02/20/2025 9:30 AM EDT [facility] Comment:Metabolite of Versed Oxazepam <50 Cutoff 50 ng/mL ng/mL 02/20/2025 9:30 AM EDT [facility] Comment:e.g., Serax; also Me tabolite of Temazepam, and Nordiazepam Oxazepam Glucuronide <50 Cutoff 50 ng/mL ng/mL 02/20/2025 9:30 AM EDT [facility] Comment:Metabolite of Oxazep am Temazepam <50 Cutoff 50 ng/mL ng/mL 02/20/2025 9:30 AM EDT [facility] Comment:e.g., Restoril; also Metabolite of Diazepam Temazepam Glucuronide <50 Cutoff 50 ng/mL ng/mL 02/20/2025 9:30 AM EDT [facility] Comment:Metabolite of Temaze jess and Diazepam Triazolam <50 Cutoff 50 ng/mL ng/mL 02/20/2025 9:30 AM EDT [facility] Comment:e.g., Halcion alpha-hydroxytriazolam <50 Cutoff 50 ng/mL ng/mL 02/20/2025 9:30 AM EDT [facility] Comment:Metabolite of Triazo rush Buprenorphine <5 Cutoff 5 ng/mL ng/mL 02/20/2025 9:30 AM EDT [facility] Comment:e.g., Suboxone, Subu lalo,Sublocade, Buprenex Buprenorphine Glucuronide <10 Cutoff 10 ng/mL ng/mL 02/20/2025 9:30 AM EDT [facility] Comment:Buprenorphine Metabo lite Norbuprenorphine <5 Cutoff 5 ng/mL ng/mL 02/20/2025 9:30 AM EDT [facility] Comment:Buprenorphine Metabo lite Norbuprenorphine Glucuronide <10 Cutoff 10 ng/mL ng/mL 02/20/2025 9:30 AM EDT [facility] Comment:Buprenorphine Metabo lite Benzoylecgonine <50 Cutoff 50 ng/mL ng/mL 02/20/2025 9:30 AM EDT [facility] Comment:Cocaine Metabolite Fentanyl <1 Cutoff 1 ng/mL ng/mL 02/20/2025 9:30 AM EDT [facility] Comment:e.g.,Duragesic, Oral et, Actiq, Sublimaze, Innovar, Lazanda Norfentanyl <1 Cutoff 1 ng/mL ng/mL 02/20/2025 9:30 AM EDT [facility] Comment:Metabolite of Fentan yl 6-Monoacetylmorphine (6MAM) <10 Cutoff 10 ng/mL ng/mL 02/20/2025 9:30 AM EDT [facility] Comment:Metabolite of Heroin ; Morphine is expected Methadone <50 Cutoff 50 ng/mL ng/mL 02/20/2025 9:30 AM EDT [facility] Comment:e.g., Dolophine, Met hadose, Amidone EDDP <50 Cutoff 50 ng/mL ng/mL 02/20/2025 9:30 AM EDT [facility] Comment:Methadone Metabolite Carisoprodol <100 Cutoff 100 ng/mL ng/mL 02/20/2025 9:30 AM EDT [facility] Comment:e.g., Soma Meprobamate <100 Cutoff 100 ng/mL ng/mL 02/20/2025 9:30 AM EDT [facility] Comment:e.g., [place], Equa nil, Micrainin, Equagesic; Metabolite of Carisoprodol Codeine <50 Cutoff 50 ng/mL ng/mL 02/20/2025 9:30 AM EDT [facility] Comment:e.g., Acetaminophen w/Codeine, Tylenol3 w/ Codeine Codeine Glucuronide <50 Cutoff 50 ng/mL ng/mL 02/20/2025 9:30 AM EDT [facility] Comment:Metabolite of Codein e Meperidine <50 Cutoff 50 ng/mL ng/mL 02/20/2025 9:30 AM EDT [facility] Comment:e.g., Demerol, Pethi dine Normeperidine <50 Cutoff 50 ng/mL ng/mL 02/20/2025 9:30 AM EDT [facility] Comment:Metabolite of Meperi dine Morphine <50 Cutoff 50 ng/mL ng/mL 02/20/2025 9:30 AM EDT [facility] Comment:e.g., MS Contin, Tania anol; Metabolite of Codeine and Heroin; may reflect poppy seed ingestion Enasjrta-3-Ytcdbcqptuw <25 Cutoff 25 ng/mL ng/mL 02/20/2025 9:30 AM EDT [facility] Comment:Metabolite of Morphi ne. Sfxiebat-7-Brqpjhrplcd <25 Cutoff 25 ng/mL ng/mL 02/20/2025 9:30 AM EDT [facility] Comment:Metabolite of Morphi ne. Naloxone <25 Cutoff 25 ng/mL ng/mL 02/20/2025 9:30 AM EDT [facility] Comment:e.g., Narcan, Evzio Hydrocodone <50 Cutoff 50 ng/mL ng/mL 02/20/2025 9:30 AM EDT [facility] Comment:e.g., Lorcet, Lortab , Vicodin, [place]; Minor Metabolite of Codeine Dihydrocodeine <50 Cutoff 50 ng/mL ng/mL 02/20/2025 9:30 AM EDT [facility] Comment:e.g., Didrate, Parzo ne, Parlor, Synalgos; Metabolite of Hydrocodone Norhydrocodone <50 Cutoff 50 ng/mL ng/mL 02/20/2025 9:30 AM EDT [facility] Comment:Metabolite of Hydroc odone Hydromorphone <50 Cutoff 50 ng/mL ng/mL 02/20/2025 9:30 AM EDT [facility] Comment:e.g., Dilaudid; also Metabolite of Hydrocodone and Minor Metabolite of Morphine Hydromorphone Glucuronide <50 Cutoff 50 ng/mL ng/mL 02/20/2025 9:30 AM EDT [facility] Comment:Metabolite of Hydrom orphone Oxycodone <50 Cutoff 50 ng/mL ng/mL 02/20/2025 9:30 AM EDT [facility] Comment:e.g., Oxycontin, Per cocet, Endocet, Percodan, Roxicet Noroxycodone <50 Cutoff 50 ng/mL ng/mL 02/20/2025 9:30 AM EDT [facility] Comment:Metabolite of Oxycod one Oxymorphone <50 Cutoff 50 ng/mL ng/mL 02/20/2025 9:30 AM EDT [facility] Comment:e.g., Opana; Metabol ite of Oxycodone Oxymorphone Glucuronide <50 Cutoff 50 ng/mL ng/mL 02/20/2025 9:30 AM EDT [facility] Comment:Metabolite of Oxycod one Noroxymorphone <50 Cutoff 50 ng/mL ng/mL 02/20/2025 9:30 AM EDT [facility] Comment:Metabolite of Oxycod one, and Oxymorphone, Noroxycodone Metabolite Tramadol <50 Cutoff 50 ng/mL ng/mL 02/20/2025 9:30 AM EDT [facility] Comment:e.g., Ultram, ConZip B-Soqtgghgr-vpi-Tramadol <50 Cutoff 50 ng/mL ng/mL 02/20/2025 9:30 AM EDT [facility] Comment:Metabolite of Tramad ol Tapentadol <50 Cutoff 50 ng/mL ng/mL 02/20/2025 9:30 AM EDT [facility] Comment:Nucynta Tapentadol-Glucuronide <50 Cutoff 50 ng/mL ng/mL 02/20/2025 9:30 AM EDT [facility] Comment:Metabolite of Tapent adol Urine Creatinine 146.0 mg/dL 02/21/20 9:30 AM EDT [facility] Comment: Greater than 20: Consistent with valid sample Greater than 2 but less than 20: Possible dilution Less than 2: Questionable valid sample Urine STRUCTURE OF URINARY TRACT PROPER / Unknown 02/18/2025 2:09 PM EDT 02/18/2025 2:09 PM EDT Narrative [employer], [facility] - 02/20/2025 9:30 AM EDT The absence of expected drug(s), and/or drug metabolite(s), may indicate non-compliance, diluted or adulterated urine, poor drug absorption, concentration of drug below the cut-off, timing of specimen collection relative to administration of drug, or limitations of testing. Specimens are held for 7 days. This test was developed, and its performance characteristics determined by [facility] ([facility]). It has not been cleared or approved by the FDA. This test is used for clinical purposes. It should not be regarded as investigational or for research. [facility] is certified under the Clinical Laboratory Improvement Amendments (CLIA) as qualified to perform high complexity clinical laboratory testing. Arminda Wilson APRN URINE ORDERABLES Final Resu lt [facility] [address] [facility], [place] [address] [facility] [address] [place] [id number] * (ABNORMAL) LIPID PANEL REFLEX (02/18/2025 2:09 PM EDT) Only the most recent of2 resultswithin the time period is included. Cholesterol 136 <200 mg/dL 02/18/2025 10:25 PM EDT [facility] Comment: < 200 Desirable 200 - 239 Borderline High >= 240 High Triglyceride 96 <150 mg/dL 02/18/2025 10:25 PM EDT [facility] Comment: < 150 Normal 150 - 199 Borderline High 200 - 499 High >= 500 Very High HDL 37(L) >=40 mg/dL 02/18/2025 10:25 PM EDT [facility] Comment: > 60 Optimal 40 - 60 Acceptable < 40 Low LDL Calculated 81 <100 mg/dL 02/18/2025 10:25 PM EDT [facility] Comment: < 100 Optimal 100 - 129 Near or above optimal 130 - 159 Borderline High 160 - 189 High >= 190 Very High The National Institutes of Health (NIH) equation is used for all lipid panels that report calculated LDL (LDL-C). Non-HDL-C Calculated 99 <=129 mg/dL 02/18/2025 10:25 PM EDT [facility] Comment: <130 Desirable 130-159 Above Desirable 160-189 Borderline High 190-219 High >= 220 Very High Fasting Specimen? No None 025 10:25 PM EDT [facility] Blood VENOUS BLOOD / Unknown Venipuncture / Unknown 02/18/2025 2:09 PM EDT 02/18/2025 2:09 PM EDT [facility] CHEMISTRY ORDERABLES Final Result Performing Organization Address City/[facility] Co de Phone Number [facility] [address] [place] [address] * VITAMIN B12/ FOLIC ACID (02/18/2025 2:09 PM EDT) Only the most recent of4 resultswithin the time period is included. Vitamin B12 349 232 - 1,245 pg/mL 02/18/2025 9:23 PM EDT [facility] Folate 9.19 >=4.80 ng/mL 02/18/2025 9:23 PM EDT [facility] Blood VENOUS BLOOD / Unknown Venipuncture / Unknown 02/18/2025 2:09 PM EDT 02/18/2025 2:09 PM EDT Narrative [facility] - 02/18/2025 9:23 PM EDT Ingestion of rayshawn doses of biotin (>5 mg/day) taken within 8 hours of drawing blood sample can interfere with this immunoassay test. [facility] CHEMISTR[facility] ORDERABLES Final Result Performing Organization Address City/[facility] Co de Phone Number [facility] [address] [facility] [place] [address] * (ABNORMAL) VITAMIN D 25 HYDROXY (02/18/2025 2:09 PM EDT) Vit D 25 OH 15.6(L) 30.0 - 150.0 ng/mL 02/18/2025 9:23 PM EDT [facility] Comment: Preferred: >= 30 ng/mL Insufficient: 21-29 ng/mL Deficient <= 20 ng/mL Possible Toxicity: >150 ng/mL Samples should not be taken from patients receiving therapy with high biotin doses (i.e. > 5 mg/day) until at least 8 hours following the last biotin administration. Blood VENOUS BLOOD / Unknown Venipuncture / Unknown 02/18/2025 2:09 PM EDT 02/18/2025 2:09 PM EDT Arminda Wilson [facility] CHEMISTRY ORDERABLES Final Result [facility] [address] [facility] , [address] [place] [id number] * (ABNORMAL) CBC WITH DIFF (02/18/2025 2:09 PM EDT) Only the most recent of22 resultswithin the time period is included. WBC 7.7 3.7 - 10.3 x10(3)/mcL 02/18/2025 9:21 PM EDT [facility] RBC 4.68 3.90 - 5.20 x10(6)/mcL 02/18/2025 9:21 PM EDT [facility] Hgb 12.0 11.2 - 15.7 g/dL 02/18/2025 9:21 PM EDT [facility] Hct 39.4 34.0 - 45.0 % 02/18/2025 9:21 PM EDT [facility] MCV 84.2 80.0 - 100.0 fL 02/18/2025 9:21 PM EDT [facility] MCH 25.6(L) 26.0 - 34.0 pg 02/18/2025 9:21 PM EDT [facility] MCHC 30.5(L) 30.7 - 35.5 g/dL 02/18/2025 9:21 PM EDT [facility] RDW 14.8 <=14.9 % 02/18/2025 9:21 PM EDT [facility] Platelet 250 155 - 369 x10(3)/mcL 02/18/2025 9:21 PM EDT [facility] MPV 12.2 8.8 - 12.5 fL 02/18/2025 9:21 PM EDT [facility] Neut Percent 58.1 % 02/18/2025 9:21 PM EDT [facility] Comment:Neutrophils equals s egs plus bands Imm Gran% 0.5 % 02/18/2025 9:21 PM EDT [facility] Comment:Automated count of m etamyelocytes, myelocytes and promyelocytes. Lymph Percent 30.7 % 02/18/2025 9:21 PM EDT [facility] [place] Percent 7.6 % 02/18/2025 9:21 PM EDT [facility] Eos Percent 2.7 % 02/18/2025 9:21 PM EDT [facility] Baso Percent 0.4 % 02/18/2025 9:21 PM EDT [facility] Neut # 4.4 1.6 - 6.1 x10(3)/mcL 02/18/2025 9:21 PM EDT [facility] Comment:Neutrophils equals s egs plus bands IMMGRAN# 0.0 0.0 - 0.1 x10(3)/mcL 02/18/2025 9:21 PM EDT [facility] Comment:Automated count of m etamyelocytes, myelocytes and promyelocytes. An absolute IG <0.1 is reported as 0.0. Lymph # 2.4 1.2 - 3.9 x10(3)/mcL 02/18/2025 9:21 PM EDT [facility] [place] # 0.6 0.3 - 0.9 x10(3)/mcL 02/18/2025 9:21 PM EDT [facility] Eos# 0.2 0.0 - 0.5 x10(3)/mcL 02/18/2025 9:21 PM EDT [facility] Baso # 0.0 0.0 - 0.1 x10(3)/mcL 02/18/2025 9:21 PM EDT [facility] Blood VENOUS BLOOD / Unknown Venipuncture / Unknown 02/18/2025 2:09 PM EDT 02/18/2025 2:09 PM EDT Arminda Wilson [facility] HEMATOLOGY ORDERABLES Final Result Performing Organization Address [facility] de Phone Number [facility] [address] , [place] [phone] * (ABNORMAL) HEMOGLOBIN A1C (02/18/2025 2:09 PM EDT) Only the most recent of5 resultswithin the time period is included. Pathologist [facility] Hgb A1C 5.7(H) 4.2 - 5.6 % 02/18/2025 9:42 PM EDT [facility] Est. Avg Glucose 117 mg/dL 02/18/2025 9:42 PM EDT [facility] Blood VENOUS BLOOD / Unknown Venipuncture / Unknown 02/18/2025 2:09 PM EDT 02/18/2025 2:09 PM EDT Narrative [facility] - 02/18/2025 9:42 PM EDT REFERENCE RANGE: Normal: 4.0-5.6% Pre-diabetes: 5.7-6.4% Provisional diagnosis of diabetes: >6.4% Hgb F>10% and anything which shortens red cell survival, such as hemolytic anemia, or unstable hemoglobin variants such as HbSS, HbSC, or HbCC, will lower the HbA1c value associated with a given level of glycemic control. Arminda Wilson [facility] CHEMISTRY ORDERABLES Final Result Performing Organization Address [facility] Phone Number [facility] [address] , [place] [address] * (ABNORMAL) COMPREHENSIVE METABOLIC PANEL (02/18/2025 2:09 PM EDT) Only the most recent of10 resultswithin the time period is included. Pathologist [facility] Sodium 143 136 - 145 mmol/L 02/18/2025 10:25 PM EDT [facility] Potassium 4.1 3.5 - 5.0 mmol/L 02/18/2025 10:25 PM EDT [facility] Chloride 105 98 - 107 mmol/L 02/18/2025 10:25 PM EDT [facility] Total CO2 24 22 - 29 mmol/L 02/18/2025 10:25 PM EDT [facility] Anion Gap 14 7 - 16 mmol/L 02/18/2025 10:25 PM EDT [facility] Calcium 9.6 8.6 - 10.4 mg/dL 02/18/2025 10:25 PM EDT [facility] Glucose Lvl 72 70 - 99 mg/dL 02/18/2025 10:25 PM EDT [facility] BUN 14 6 - 20 mg/dL 02/18/2025 10:25 PM EDT [facility] Creatinine 0.87 0.51 - 1.30 mg/dL 02/18/2025 10:25 PM EDT [facility] Albumin 4.2 3.5 - 5.2 gm/dL 02/18/2025 10:25 PM EDT [facility] Total Protein 7.3 6.4 - 8.3 gm/dL 02/18/2025 10:25 PM EDT [facility] Bili Total 0.3 0.2 - 1.3 mg/dL 02/18/2025 10:25 PM EDT [facility] ALT 13 <=41 U/L 02/18/2025 10:25 PM EDT [facility] AST 17 <=40 U/L 02/18/2025 10:25 PM EDT [facility] Alk Phos 124(H) 36 - 123 U/L 02/18/2025 10:25 PM EDT [facility] eGFR (CKD-EPIcr 2020) 82 >=60 mL/min/1.7 3 m2 02/18/2025 10:25 PM EDT [facility] Comment:Estimated GFR was ca lculated using the CKD-EPIcr (2020) equation refit without race. The equation is recommended by the [employer] - [employer] Task Force. Blood VENOUS BLOOD / Unknown Venipuncture / Unknown 02/18/2025 2:09 PM EDT 02/18/2025 2:09 PM EDT Arminda Wilson APRN CHEMISTRY ORDERABLES Final Result Performing Organization Address [facility] Co de Phone Number [facility] [address] , [place] [address] * THYROID STIMULATING HORMONE (01/17/2025 10:50 AM EDT) Only the most recent of18 resultswithin the time period is included. TSH 0.495 0.270 - 4.200 mcIU/mL 01/17/2025 5:37 PM EDT [facility] Blood VENOUS BLOOD / Unknown Venipuncture / Unknown 01/17/2025 10:50 AM EDT 01/17/2025 10:50 AM EDT Narrative [facility] - 01/17/2025 5:37 PM EDT Ingestion of rayshawn doses of biotin (>5 mg/day) taken within 8 hours of drawing blood sample can interfere with this immunoassay test. Judith Lomax MD CHEMISTRY ORDERABLES Fin al Result Performing Organization Address [facility] Co de Phone Number [facility] [address] , [place] [address] * (ABNORMAL) URINE CULTURE (NO STAIN) (12/16/2024 9:16 AM EDT) Only the most recent of5 resultswithin the time period is included. Culture Positive Growth(A) 2024 7:38 AM EDT [facility] Culture >100,000 CFU/mL Staphylococcus aureus SUSCEPTIBI LITY RESULT 12/20/2024 7:38 AM EDT [facility] Culture 10,000 CFU/mL Acinetobacter baumannii complex SUSCEPTIBI LITY RESULT 12/20/2024 7:38 AM EDT [facility] Urine STRUCTURE OF URINARY TRACT PROPER / Unknown 12/16/2024 9:16 AM EDT 12/16/2024 9:16 AM EDT Narrative Organism Antibiotic Method Susceptibility Staphylococcus aureus Ampicillin SUSCEPTIBILITY RESU LT Staphylococcus aureus Cefazolin SUSCEPTIBILITY RESU LT Staphylococcus aureus Ceftaroline SUSCEPTIBILITY RESU LT Staphylococcus aureus Ceftriaxone SUSCEPTIBILITY RESU LT Staphylococcus aureus Chloramphenicol SUSCEPTIBILITY R ESULT Staphylococcus aureus Ciprofloxacin SUSCEPTIBILITY RES ULT <=1 ug/mL: Susceptible Staphylococcus aureus Clindamycin SUSCEPTIBILITY RESU LT Staphylococcus aureus Daptomycin SUSCEPTIBILITY RESU LT Staphylococcus aureus Erythromycin SUSCEPTIBILITY RESU LT Staphylococcus aureus Gentamicin SUSCEPTIBILITY RESU LT <=1 ug/mL: Susceptible Staphylococcus aureus Gentamicin synergy SUSCEPTIBILIT Y RESULT Staphylococcus aureus Levofloxacin SUSCEPTIBILITY RESU LT <=0.5 ug/mL: Susceptible Staphylococcus aureus Linezolid SUSCEPTIBILITY RESU LT Staphylococcus aureus Moxifloxacin SUSCEPTIBILITY RESU LT Staphylococcus aureus Nitrofurantoin SUSCEPTIBILITY RE SULT <=32 ug/mL: Susceptible Staphylococcus aureus Oxacillin SUSCEPTIBILITY RESU LT 0.5 ug/mL: Susceptible Staphylococcus aureus Penicillin SUSCEPTIBILITY RESU LT Staphylococcus aureus Rifampin SUSCEPTIBILITY RESU LT <=1 ug/mL: Susceptible Staphylococcus aureus Streptomycin synergy SUSCEPTIBIL ITY RESULT Staphylococcus aureus Synercid SUSCEPTIBILITY RESU LT Staphylococcus aureus Tetracycline SUSCEPTIBILITY RESU LT <=2 ug/mL: Susceptible Staphylococcus aureus Tigecycline SUSCEPTIBILITY RESU LT Staphylococcus aureus Trimethoprim/Sulfa meth oxazole SUSCEPTIBILITY RESULT <=0.5/9.5 ug/mL: Susceptible Staphylococcus aureus Vancomycin SUSCEPTIBILITY RESU LT 0.5 ug/mL: Susceptible Comment:Rifampin and Gentami murray should not be used alone for antimicrobial therapy. For methicillin resistant staphylococci, ciprofloxacin should also not be used alone. Acinetobacter baumannii complex Amikacin SUSCEPTIBILITY RESULT <=16 ug/mL: Susceptible Acinetobacter baumannii complex Amoxicillin/Clavulanat e SUSCEPTIBILITY RESULT Acinetobacter baumannii complex Ampicillin SUSCEPTIBILITY RESULT Acinetobacter baumannii complex Ampicillin/Sulbactam SUSCEPTIBILITY RESULT <=4/2 ug/mL: Susceptible Acinetobacter baumannii complex Aztreonam SUSCEPTIBILITY RESULT Acinetobacter baumannii complex Cefazolin SUSCEPTIBILITY RESULT Acinetobacter baumannii complex Cefepime SUSCEPTIBILITY RESULT 4 ug/mL: Susceptible Acinetobacter baumannii complex Cefotaxime SUSCEPTIBILITY RESULT 8 ug/mL: Susceptible Acinetobacter baumannii complex Cefoxitin SUSCEPTIBILITY RESULT Acinetobacter baumannii complex Ceftazidime SUSCEPTIBILITY RESULT 4 ug/mL: Susceptible Acinetobacter baumannii complex Ceftazidime/Avibactam SUSCEPTIBILITY RESULT Acinetobacter baumannii complex Ceftolozane/Tazobactam SUSCEPTIBILITY RESULT Acinetobacter baumannii complex Ceftriaxone SUSCEPTIBILITY RESULT 32 ug/mL: Intermediate Acinetobacter baumannii complex Cefuroxime SUSCEPTIBILITY RESULT Acinetobacter baumannii complex Ciprofloxacin SUSCEPTIBILITY RESULT <=0.25 ug/mL: Susceptible Acinetobacter baumannii complex Ertapenem SUSCEPTIBILITY RESULT Acinetobacter baumannii complex Gentamicin SUSCEPTIBILITY RESULT <=2 ug/mL: Susceptible Acinetobacter baumannii complex Imipenem SUSCEPTIBILITY RESULT Acinetobacter baumannii complex Levofloxacin SUSCEPTIBILITY RESULT <=0.5 ug/mL: Susceptible Acinetobacter baumannii complex Meropenem SUSCEPTIBILITY RESULT <=1 ug/mL: Susceptible Acinetobacter baumannii complex Meropenem/Vaborbactam SUSCEPTIBILITY RESULT Acinetobacter baumannii complex Minocycline SUSCEPTIBILITY RESULT <=4 ug/mL: Susceptible Acinetobacter baumannii complex Moxifloxacin SUSCEPTIBILITY RESULT Acinetobacter baumannii complex Nitrofurantoin SUSCEPTIBILITY RESULT Acinetobacter baumannii complex Piperacillin/Tazobacta m SUSCEPTIBILITY RESULT Acinetobacter baumannii complex Tetracycline SUSCEPTIBILITY RESULT <=4 ug/mL: Susceptible Acinetobacter baumannii complex Tigecycline SUSCEPTIBILITY RESULT Acinetobacter baumannii complex Tobramycin SUSCEPTIBILITY RESULT <=2 ug/mL: Susceptible Acinetobacter baumannii complex Trimethoprim/Sulfameth oxazole SUSCEPTIBILITY RESULT <=0.5/9.5 ug/mL: Susceptible Comment:If susceptibility to imipenem on Acinetobacter species is desired, call Microbiology at [phone] within 1 week. us Crista Briseno DO MICROBIOLOGY - GENERAL ORDER TASHA Final Result [facility], [address], [place] [address] * (ABNORMAL) SEP URINALYSIS POC (12/16/2024 9:13 AM EDT) Only the most recent of4 resultswithin the time period is included. UA Color POC Yellow Color 12/16/2024 9:16 AM EDT [facility] UA Appear POC Clear Clear 12/16/2024 9:16 AM EDT [facility] UA Gluc POC Negative Negative mg/dL 12/16/2024 9:16 AM EDT [facility] UA Bili POC Negative Negative 12/16/2024 9:16 AM EDT [facility] UA Ketones POC Negative Negative mg/dL 12/16/2024 9:16 AM EDT [facility] UA SG POC >=1.030 1.001 - 1.035 no units 12/16/2024 9:16 AM EDT [facility] UA Blood POC Large(A) Negative 12/16/2024 9:16 AM EDT [facility] UA pH POC 6.0 5.0 - 8.0 pH 12/16/2024 9:16 AM EDT [facility] UA Protein POC >=300(A) Negative mg/dL 12/16/2024 9:16 AM EDT [facility] UA Urobilinogen POC 0.2 0.2, 1.0 12/16/2024 9:16 AM EDT [facility] UA Nitrite POC Negative Negative 12/16/2024 9:16 AM EDT [facility] UA Leuk Est POC Moderate(A) Negative 12/17/19 9:16 AM EDT [facility] Urine STRUCTURE OF URINARY TRACT PROPER / Unknown 12/16/2024 9:13 AM EDT 12/16/2024 9:16 AM EDT us Crista Briseno DO POINT OF CARE TEST ORDERABLE S Final Result [facility] [address] [place], [place] [address] * MRI BRAIN W WO CONTRAST (11/27/2024 8:22 AM EDT) Anatomical Region Laterality Modality Head Magnetic Resonan ce 11/27/2024 8:22 AM EDT Impressions 11/27/2024 9:08 AM EDT No acute intracranial abnormality - Note: Radiology results need to be interpreted within a comprehensive clinical context. If you have questions about the radiology report, please contact the office of the ordering clinician. Narrative 11/27/2024 9:08 AM EDT MRI BRAIN W WO CONTRAST 11/27/2024 8:22 AM CLINICAL HISTORY: R56.9-Unspecified convulsions (HCC)-ICD-10-CM. Normal EEG COMPARISON: CT 11/16/2024. PROCEDURE COMMENTS: Multiplanar multiecho MR imaging of the brain per protocol before and following IV contrast administration. Gadolinium contrast given as recorded in Epic. FINDINGS: No acute infarct, hemorrhage, or midline shift. No intracranial mass. No hydrocephalus. 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 Flow voids within the large intracranial vessels suggest patency. The orbits, paranasal sinuses, and mastoids are grossly unremarkable. Procedure Note Franco Parra MD - 11/27/2024 MRI BRAIN W WO CONTRAST 11/27/2024 8:22 AM CLINICAL HISTORY: R56.9-Unspecified convulsions (HCC)-ICD-10-CM. NormalEEG COMPARISON: CT 11/16/2024. PROCEDURE COMMENTS: Multiplanar multiecho MR imaging of the brain perprotocol before and following IV contrast administration. Gadolinium contrast givenas recorded in Epic. FINDINGS: No acute infarct, hemorrhage, or midline shift. No intracranial mass. No hydrocephalus. 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 Flow voids within the large intracranial vessels suggest patency. The orbits, paranasal sinuses, and mastoids are grossly unremarkable. IMPRESSION: No acute intracranial abnormality - Note: Radiology results need to be interpreted within a comprehensiveclinical context. If you have questions about the radiology report, please contactthe office of the ordering clinician. us Abdulkadir Montoya MD IMG MRI ORDERABLES Final Resul t * SEDIMENTATION RATE AUTOMATED (11/19/2024 2:22 PM EDT) Only the most recent of3 resultswithin the time period is included. Sed Rate 15 0 - 20 mm/hr 11/19/2024 8:15 PM EDT [facility] Blood VENOUS BLOOD / Unknown Venipuncture / Unknown 11/19/2024 2:22 PM EDT 11/19/2024 2:22 PM EDT Abdulkadir Montoya MD HEMATOLOGY ORDERABLES Final Re sult [facility] [address] [facility] , [address] [place] [phone] * (ABNORMAL) C-REACTIVE PROTEIN (11/19/2024 2:22 PM EDT) Only the most recent of3 resultswithin the time period is included. CRP 17.09(H) <=5.00 mg/L 11/20/2024 12:23 AM EDT [facility] Blood VENOUS BLOOD / Unknown Venipuncture / Unknown 11/19/2024 2:22 PM EDT 11/19/2024 2:22 PM EDT Abdulkadir Montoya MD CHEMISTRY ORDERABLES Final Res ult Performing Organization Address [facility] Phone Number [facility] Collusion [facility] [address] [facility] , [address] [place], [place] [id number] * T4, FREE (THYROXINE) (11/19/2024 2:22 PM EDT) Only the most recent of14 resultswithin the time period is included. [facility] Free T4 1.38 0.80 - 1.80 ng/dL 11/20/2024 12:23 AM EDT [facility] Blood VENOUS BLOOD / Unknown Venipuncture / Unknown 11/19/2024 2:22 PM EDT 11/19/2024 2:22 PM EDT Narrative [facility] - 11/20/2024 12:23 AM EDT Ingestion of rayshawn doses of biotin (>5 mg/day) taken within 8 hours of drawing blood sample can interfere with this immunoassay test. Abdulkadir Montoya MD CHEMISTRY ORDERABLES Final Res ult Performing Organization Address [facility] Phone Number [facility] [address] [facility] , [place] [address] * EEG LTM UNATTENDED EACH 2-12 HOURS (11/17/2024 6:32 PM EDT) Anatomical Region Laterality Modality Electroencephalo graphy Narrative 11/18/2024 12:48 AM EDT [facility] DEPARTMENT OF NEUROLOGY [facility] Patient: Gisela Kennedy Age: 49 y.o. [...] correlation is required. Ben Rossi MD Neurology Ben Rossi MD IMG EEG ORDERABLES Final Result * ECG AND WAVEFORMS - TELEMETRY (11/17/2024 8:35 AM EDT) Only the most recent of5 resultswithin the time period is included. ECG INTERPRET NSR [facility] 11/17/2024 8:35 AM EDT Narrative [facility] - 11/17/2024 8:53 AM EDT MG/ROUTINE UT 0.17 QRS 0.10 RR 0.77 QT 0.37 QTc 0.42 See Clinical Report link for waveform capture us Unknown Provider POINT OF CARE CARDIOLOGY Final Result Performing Organization Address [facility]/ZIP Co de Phone Number [facility] [address] [place] [address] * LACTIC ACID (11/17/2024 1:15 AM EDT) Only the most recent of2 resultswithin the time period is included. Pathologist [facility] Lactic Acid 0.9 0.5 - 1.9 mmol/L 11/17/2024 1:39 AM EDT [facility] Blood VENOUS BLOOD / Unknown Venipuncture / Unknown 11/17/2024 1:15 AM EDT 11/17/2024 1:22 AM EDT Aracely Anderson MD CHEMISTRY ORDERABLES Final Res ult Performing Organization Address [facility] de Phone Number [facility] [address] [place] [address] * (ABNORMAL) BASIC METABOLIC PANEL (11/17/2024 1:15 AM EDT) Only the most recent of17 resultswithin the time period is included. [facility] Sodium 144 136 - 145 mmol/L 11/17/2024 1:40 AM EDT [facility] Potassium 3.7 3.5 - 5.0 mmol/L 11/17/2024 1:40 AM EDT [facility] Chloride 111(H) 98 - 107 mmol/L 11/17/2024 1:40 AM EDT [facility] Total CO2 21(L) 22 - 29 mmol/L 11/17/2024 1:40 AM EDT [facility] Anion Gap 12 7 - 16 mmol/L 11/17/2024 1:40 AM EDT [facility] Calcium 8.6 8.6 - 10.4 mg/dL 11/17/2024 1:40 AM EDT [facility] Glucose Lvl 90 70 - 99 mg/dL 11/17/2024 1:40 AM EDT [facility] BUN 9 6 - 20 mg/dL 11/17/2024 1:40 AM EDT [facility] Creatinine 0.82 0.51 - 1.30 mg/dL 11/17/2024 1:40 AM EDT [facility] eGFR (CKD-EPIcr 2020) 88 >=60 mL/min/1.7 3 m2 11/17/2024 1:40 AM EDT [facility] Comment:Estimated GFR was ca lculated using the CKD-EPIcr (2020) equation refit without race. The equation is recommended by the National [employer] - [employer]ph[employer] Task Force. Blood VENOUS BLOOD / Unknown Venipuncture / Unknown 11/17/2024 1:15 AM EDT 11/17/2024 1:22 AM EDT Aracely Anderson MD CHEMISTRY ORDERABLES Final Res ult Performing Organization Address [facility] Co de Phone Number [facility] [address] [place] [id number] * GLUCOSE METER POC (11/17/2024 12:01 AM EDT) [facility] Signature Glucose Meter POC 88 70 - 100 mg/dL 11/17/2024 12:03 AM EDT [facility] Sample Type Capillary 11/17/2024 12:03 AM EDT [facility] Patient Status Non-Critical Patient 11/17/2024 12:03 AM EDT [facility] Blood BLOOD SPECIMEN / Unknown 11/17/2024 12:01 AM EDT 11/17/2024 12:03 AM EDT Arcadio Ruiz MD POINT OF CARE TEST ORDERABL ES Final Result Performing Organization Address [facility] Co de Phone Number [facility] [address] [place] [address] * CT LOWER EXTREMITY RIGHT [...] EDT Impressions 10/30/2024 10:39 AM EDT Negative ([id number]-[id number]-1) RECOMMENDATION: Routine Screening Mammogram in 1 Year Bilateral . . COMMENTS: DISCLAIMER *The patient was notified by MyChart or mail of the results for this examination. *The patient's information was entered into a reminder system with a target due date for the next breast imaging, in accordance with the [employer] and the Society of [...] for screening mammogram for malignant neoplasm of [id number] COMPARISON STUDIES: Compared with prior studies the most recent being 09/16/2022 MM MAMMO DIGITAL TRACIE SCREEN BILAT at [facility] TISSUE DENSITY: There are scattered areas of fibroglandular density. FINDINGS: No mammographic evidence of malignancy. Procedure Note Kaleb Jimenez MD - 10/30/2024 EXAM: MM MAMMO DIGITAL TRACIE SCREEN BILAT EXAM DATE: 10/30/2024 10:03 AM INDICATION: Z12.31-Encounter for screening mammogram for malignantneoplasm of [id number]-CM COMPARISON STUDIES: Compared with prior studies the most recent being 09/16/2022 MM MAMMO DIGITAL TRACIE SCREEN BILAT at [facility] TISSUE DENSITY: There are scattered areas of fibroglandular density. FINDINGS: No mammographic evidence of malignancy. IMPRESSION: Negative (IKO-Vuzfynan-1) RECOMMENDATION: Routine Screening Mammogram in 1 Year Bilateral . . COMMENTS: DISCLAIMER *The patient was notified by MyChart or mail of the results for this examination. *The patient's information was entered into a reminder system with atarget due date for the next breast imaging, in accordance with the [employer] and the Society of Breast Imaging recommendations. *Breast Imaging has a false negative rate of 15%. *Any patient with a palpable abnormality, unexplained by breast imaging,should be managed on a clinical basis by the attending physician. Arminda Wilson SAUTE CHEF IMG MAMMOGRAPHY ORDERABLES Final Result * SCANNED EKG (09/17/2024 9:34 AM EDT) Only the most recent of5 resultswithin the time period is included. Anatomical Region Laterality Modality Other 09/17/2024 9:34 AM EDT Unknown Provider IMG ECG ORDERABLES Final Result * TROPONIN-T HIGH SENSITIVITY 2HR (09/16/2024 12:23 PM EDT) Only the most recent of2 resultswithin the time period is included. vm-wQzzjhvmk-W 2HR <6 <14 ng/L 09/16/2024 12:44 PM EDT [facility] hs-cTnT 2Hr Delta from Baseline <-2 <4 ng/L 09/16/2024 12:44 PM EDT [facility] Blood VENOUS BLOOD / Unknown Venipuncture / Unknown 09/16/2024 12:23 PM EDT 09/16/2024 12:25 PM EDT Narrative [facility] - 09/16/2024 12:44 PM EDT Ingestion of rayshawn doses of biotin (>5 mg/day) taken within 8 hours of drawing blood sample can interfere with this immunoassay test. us Abdiel Barclay MD CHEMISTRY ORDERABLES Final Result [facility] [address] [facility] [place] [address] * CT ANGIOGRAM PULMONARY W CONTRAST [...] time period is included. Pathologist [facility] pv-jQkipvtax-R 8 <14 ng/L 09/16/2024 10:50 AM EDT [facility] Blood VENOUS BLOOD / Unknown Venipuncture / Unknown 09/16/2024 10:23 AM EDT 09/16/2024 10:33 AM EDT Narrative [facility] - 09/16/2024 10:50 AM EDT Ingestion of rayshawn doses of biotin (>5 mg/day) taken within 8 hours of drawing blood sample can interfere with this immunoassay test. us Abdiel Barclay MD CHEMISTRY ORDERABLES Final Result [facility] [address] [place] [address] * (ABNORMAL) D-DIMER (09/16/2024 10:23 AM EDT) Only the most recent of4 resultswithin the time period is included. [facility] D-Dimer 677(H) <=500 ng/mL FEU 09/16/2024 10:59 AM EDT [facility] Comment:This is an automated latex [...] Abdiel Barclay MD HEMATOLOGY ORDERABLES Final Result [facility] [address] [place] [address] * EK EKG 12 LEAD (09/16/2024 9:26 AM EDT) Only the most recent of11 resultswithin the time period is included. Anatomical Region Laterality Modality Electrocardiogra phy 09/16/2024 9:31 AM EDT Impressions 09/16/2024 6:55 PM EDT [facility] Test Date: 2024-09-16 Pat Name: [facility] Department: DEPID Room: Gender: Female Communications Project Manager: [facility] : 1975 Requested By: [facility] Order Number: [id number] Reading MD: Juan J Spence MD Measurements Intervals [place] Rate: 74 P: 50 UT: 143 QRS: 28 QRSD: 108 T: 19 QT: 395 QTc: 441 Interpretive Statements SINUS RHYTHM Electronically Signed On 09-16-2024 18:55:14 EDT by Juan J Spence MD Narrative Procedure Note Juan J Spence MD - 09/16/2024 IMPRESSION [facility] Test Date: 2024-09-16 Pat Name: [facility] Department: DEPID Room: Gender: Female Communications Project Manager: [facility] : 1975 Requested By: [facility] Order Number: [id number] Reading : Juan J Spence MD Measurements Intervals [place] Rate: 74 P: 50 UT: 143 QRS: 28 QRSD: 108 T: 19 [...] to verify the correct patient, procedure, equipment, business support administrator and site/side marked as required Injury Location [...] SURGICAL ORDERABLES Final Result Performing Organization Address [facility] de Phone Number ORTH[facility]INCY * Cast application [...] to verify the correct patient, procedure, equipment, business support administrator and site/side marked as required Injury Location [...] SURGICAL ORDERABLES Final Result Performing Organization Address [facility] de Phone Number [email or web address] * XR FOOT LEFT AP LATERAL AND [...] Negative 06/07/2024 11:50 AM EST [facility] Swab SPECIMEN FROM NASOPHARYNGEAL STRUCTURE / Unknown 06/07/2024 11:33 AM EST 06/07/2024 11:50 AM EST Arminda Wilson SAUTE CHEF POINT OF CARE TEST ORDERABL ES Final Result [facility] [address] [place] [address] * URINALYSIS (05/15/2024 11:41 AM EST) Only the most recent of4 resultswithin the time period is included. UA Color Colorless 05/16/2024 9:07 PM EST [facility] UA Appear Clear Clear 05/16/2024 9:07 PM EST [facility] UA Glucose Negative Negative mg/dL 05/16/2024 9:07 PM EST [facility] UA Ketones Negative Negative mg/dL 05/16/2024 9:07 PM EST [facility] UA Blood Negative Negative 05/16/2024 9:07 PM EST [facility] UA pH 6.5 5.0 - 8.0 pH 05/16/2024 9:07 PM EST [facility] UA Protein Negative Negative mg/dL 05/16/2024 9:07 PM EST [facility] UA Urobilinogen Normal <=1 mg/dL 9:07 PM EST [facility] UA Bili Negative Negative 05/16/2024 9:07 PM EST [facility] UA Nitrite Negative Negative 05/16/2024 9:07 PM EST [facility] UA Leuk Est Negative Negative 05/16/2024 9:07 PM EST [facility], [facility] UA Spec Grav 1.012 1.001 - 1.035 no units 05/16/2024 9:07 PM EST [facility] Comment:Reference range dylan d for random specimens only. Urine URINE SPECIMEN OBTAINED VIA STRAIGHT CATHETER / Unknown 05/15/2024 11:41 AM EST 05/15/2024 11:41 AM EST us Nicolette Phillips PA-C URINE ORDERABLES Yessenia l Result [facility] [address] [facility] , [place] [address] * CT ABDOMEN W CONTRAST (05/02/2024 2:39 [...] 2:39 PM CLINICAL HISTORY: R10.12-Left upper quadrant [id number]-CM. COMPARISON: 07/27/2015 PROCEDURE COMMENTS: Multidetector CT of [...] 2:39 PM CLINICAL HISTORY: R10.12-Left upper quadrant [id number]-CM. COMPARISON: 07/27/2015 PROCEDURE COMMENTS: Multidetector CT of [...] * LIPASE LEVEL (04/26/2024 2:02 PM EST) Pathologist [facility] Lipase Lvl 36 13 - 60 U/L 04/26/2024 8:05 PM EST [facility] Blood VENOUS BLOOD / Unknown Venipuncture / Unknown 04/26/2024 2:02 PM EST 04/26/2024 2:02 PM EST Arminda Wilson APRN CHEMISTRY ORDERABLES Final Result [facility] [address], [place] [address] * AMYLASE LEVEL (04/26/2024 2:02 PM EST) Pathologist [facility] Amylase Lvl 62 28 - 100 U/L 04/26/2024 8:05 PM EST [facility] Blood VENOUS BLOOD / Unknown Venipuncture / Unknown 04/26/2024 2:02 PM EST 04/26/2024 2:02 PM EST us Arminda Wilson SAUTE CHEF CHEMISTRY ORDERABLES Final Result Performing Organization Address [facility] Co de Phone Number [facility] [address] [facility], [place] [address] * SCANNED RHYTHM STRIPS (04/05/2024 10:58 AM EST) Only the most recent of9 resultswithin the time period is included. Anatomical Region Laterality Modality Other 04/05/2024 10:5 8 AM EST us Unknown Provider IMG ECG ORDERABLES Final Result * INTRAOP AIRWAY PLACEMENT (04/04/2024 12:30 PM EST) Narrative [facility] - 04/04/2024 12:30 PM EST Saud Sierra, SINA 04/04/2024 12:31 PM Intraop Airway Placement: Date/Time: [...] wall motion Condition: Atraumatic Insertion attempts: 1 Wanda Miranda MD [place] ANESTHESIA Final R esult Performing Organization Address [facility] Co de Phone Number [facility] [address] [place] [id number] * [id number] A/B (03/14/2024 2:35 PM EST) Only the most recent of2 resultswithin the time period is included. Pathologist [facility] CORONAVIRUS [id number] Not Detected Not Detected 03/14/2024 3:05 PM EST [facility] Influenza A DNA Not Detected Not Detected 03/14/2024 3:05 PM EST [facility] Influenza B DNA Not Detected Not Detected 03/14/2024 3:05 PM EST [facility] Swab BOTH ANTERIOR NARES / Unknown 03/14/2024 2:35 PM EST 03/14/2024 2:44 PM EST Narrative [facility] - 03/14/2024 3:05 PM EST [...] management decisions. Test is performed on the [employer] ALAYNA platform. us Ce Philippe DO MICROBIOLOGY - GENERAL ORDERAB LES Final Result [facility] [address] [place], [place] [id number] * (ABNORMAL) CBC (03/13/2024 1:44 PM EST) Only the most recent of4 resultswithin the time period is included. Pathologist [facility] WBC 6.8 3.7 - 10.3 x10(3)/mcL 03/13/2024 7:52 PM EST [facility] RBC 4.61 3.90 - 5.20 x10(6)/mcL 03/13/2024 7:52 PM EST [facility] Hgb 11.9 11.2 - 15.7 g/dL 03/13/2024 7:52 PM EST [facility] Hct 38.7 34.0 - 45.0 % 03/13/2024 7:52 PM EST [facility] MCV 83.9 80.0 - 100.0 fL 03/13/2024 7:52 PM EST [facility] MCH 25.8(L) 26.0 - 34.0 pg 03/13/2024 7:52 PM EST [facility] MCHC 30.7 30.7 - 35.5 g/dL 03/13/2024 7:52 PM EST [facility] RDW 14.9 <=14.9 % 03/13/2024 7:52 PM EST [facility] Platelet 256 155 - 369 x10(3)/mcL 03/13/2024 7:52 PM EST [facility] MPV 11.8 8.8 - 12.5 fL 03/13/2024 7:52 PM EST [facility] Blood VENOUS BLOOD / Unknown Venipuncture / Unknown 03/13/2024 1:44 PM EST 03/13/2024 1:44 PM EST Arminda Katie SAUTE CHEF HEMATOLOGY ORDERABLES Final Result Performing Organization Address City/[facility]/ZIP Co de Phone Number [facility] [employer] [facility] [address] [facility] , [place] [address] * POCT EKG (03/13/2024 1:17 PM EST) 03/13/2024 1:17 PM EST Impressions SEP OFFICE - 03/13/2024 1:17 PM EST NSR, no ectopy Arminda Donnellying SAUTE CHEF POINT OF CARE CARDIOLOGY Ed ited Result - Final Performing Organization Address City/[facility]/ZIP Co de Phone Number SEP OFFICE * (ABNORMAL) YNES SCREEN BY IFA (12/12/2023 11:00 AM EDT) YNES Titer 1:320(A) <1:80 12/15/2023 1:08 PM EDT [facility] Comment:A titer of 1:80 is t he reference interval for detection in the indirect immunofluorescence assay, representing the titer with optimized sensitivity/specificity in healthy and affected populations. Note that titers < 1:80 do not necessarily rule out systemic autoimmune rheumatic diseases. YNES Pattern Homogeneous 12/15/2023 1:08 PM EDT [facility] [employer] Blood VENOUS BLOOD / Unknown Venipuncture / Unknown 12/12/2023 11:00 AM EDT 12/12/2023 11:00 AM EDT Abdulkadir Montoya MD IMMUNOLOGY ORDERABLES Final Re sult Performing Organization Address [facility] de Phone Number [facility] [employer] [address] [place] [address] , [place] [phone] * CYCLIC CITRULLINATED PEPTIDE ANTIBODY, IGG (12/12/2023 11:00 AM EDT) Only the most recent of2 resultswithin the time period is included. Pathologist [facility] CCP Ab, IgG 1.1 <5.0 U/mL 12/12/2023 7:47 PM EDT [facility] [employer] Comment: Negative: < 5.0 U/mL Positive: > or = 5.0 U/mL Blood VENOUS BLOOD / Unknown Venipuncture / Unknown 12/12/2023 11:00 AM EDT 12/12/2023 11:00 AM EDT Abdulkadir Montoya MD IMMUNOLOGY ORDERABLES Final Re sult Performing Organization Address [facility] Phone Number [facility] [address] , [place] [phone] * RHEUMATOID FACTOR QUANTITATIVE (12/12/2023 11:00 AM EDT) [facility] RF Quant <10 <14 IU/mL 12/12/2023 5:2 9 PM EDT [facility] Blood VENOUS BLOOD / Unknown Venipuncture / Unknown 12/12/2023 11:00 AM EDT 12/12/2023 11:00 AM EDT Abdulkadir Montoya MD IMMUNOLOGY ORDERABLES Final Re sult Performing Organization Address [facility] de Phone Number [facility] [address] , [place] [address] * (ABNORMAL) ANTINUCLEAR ANTIBODY SCREEN (12/12/2023 11:00 AM EDT) Only the most recent of2 resultswithin the time period is included. YNES, IgG Positive (A) Negative 12/15/2023 1:08 PM EDT [facility] Comment:YNES samples are scre ened using automated enzyme immunoassay. All samples that screen positive are then tested by the indirect immunofluorescence method. Blood VENOUS BLOOD / Unknown Venipuncture / Unknown 12/12/2023 11:00 AM EDT 12/12/2023 11:00 AM EDT Abdulkadir Montoya MD IMMUNOLOGY ORDERABLES Final Re sult Performing Organization Address City/[facility]/ZIP Co de Phone Number [facility] [address] [place] [address] , [place] [address] * (ABNORMAL) POCT ELLIS SARS ANTIGEN (11/03/2023 11:14 AM EDT) Only the most recent of5 resultswithin the time period is included. SARS Antigen Positive(A ) Negative SEP OFFICE Lot Number SEP OFFICE Expiration Date SEP OFFICE SeriAl # SEP OFFICE Control Line Yes YES/NO SEP OFFICE 11/03/2023 11:1 4 AM EDT us Arminda Shallowater SAUTE CHEF POINT OF CARE TEST ORDERABL ES Final Result Performing Organization Address City/[facility] Co de Phone Number SEP OFFICE * POCT ELLIS INFLUENZA A/B (11/03/2023 10:01 AM EDT) Influenza A Antigen Negative Negative 11/03/2023 11:14 AM EDT [facility] Influenza B Antigen Negative Negative 11/03/2023 11:14 AM EDT [facility] Swab SPECIMEN FROM NASOPHARYNGEAL STRUCTURE / Unknown 11/03/2023 10:01 AM EDT 11/03/2023 11:14 AM EDT us Arminda Katie SAUTE CHEF POINT OF CARE TEST ORDERABL ES Final Result SEP ERNST [place] [address] [place], [place] [address] * COLOGUARD (09/12/2023 10:45 PM EDT) COLOGUARD CLINICAL REPORT Negative Negative [facility] Comment: NEGATIVE TEST RESULT. A negative [...] Helton et al, N Engl J Med 2014;370(14):6939-1985) The normal value (reference range) for this assay is negative. COLOGUARD RE-SCREENING RECOMMENDATION: Periodic colorectal cancer screening is an important part of preventive healthcare for asymptomatic individuals at average risk for colorectal cancer. Following a negative Cologuard result, the [employer] Society and U.S. Multi-Society Task Force screening guidelines recommend a Cologuard re-screening interval of 3 years. References: [employer] Guideline for Colorectal Cancer Screening: https://www.cancer.org/cancer/yujlp-aoyuvx-rfnoyo/jotpxgbcu-hwjjyvvba-zykxeuj/ac s-rec ommendations.html.; Julius SOOD, Sunil TIWARI, Floridalma VogelK, Colorectal Cancer Screening: Recommendations for Physicians and Patients from the U.S. Multi-Society Task Force on Colorectal Cancer Screening , Am J Gastroenterology 2017; 112:0756-8623. TEST DESCRIPTION: Composite algorithmic analysis of stool [...] Ayoub. et al, N Engl J Med 2014;370(14):3305-4535.) Cologuard may produce a false negative or false positive result (no colorectal cancer or precancerous polyp present at colonoscopy follow up). A negative Cologuard test result does not guarantee the absence of CRC or advanced adenoma (pre-cancer). The current Cologuard screening interval is every 3 years. ([employer] Society and U.S. Multi-Society Task Force). Cologuard performance data in a 10,000 patient pivotal study using colonoscopy as the reference method can be accessed at the following location: www.[employer]ribeH[employer]/results. Additional description of the Cologuard test process, warnings and precautions can be found at [email or web address] [email or web address]. Stool 09/12/2023 10:4 5 PM EDT 09/14/2023 1:35 PM EDT us Crista Briseno DO Swirl - ORDERABLES F inal Result [facility] [address] [place] [address], [facility] [employer] [address] [place] [address] * CT CHEST W CONTRAST (09/01/2023 3:40 [...] CONTRAST, 05/02/2023 5:45 PM CLINICAL HISTORY: R05.3-Chronic wxctg-[id number]-CM. COMPARISON: CT 04/03/2023 PROCEDURE COMMENTS: Multi-detector CT [...] CONTRAST, 05/02/2023 5:45 PM CLINICAL HISTORY: R05.3-Chronic risod-BRW-70-CM. COMPARISON: CT 04/03/2023 PROCEDURE COMMENTS: Multi-detector CT [...] 152 <=192 pg/mL 04/26/2023 8:09 PM EST [facility] Blood VENOUS BLOOD / Unknown Venipuncture / Unknown 04/26/2023 2:34 PM EST 04/26/2023 2:34 PM EST Narrative [facility] - 04/26/2023 8:09 PM EST An NT pro-BNP level less than 300 pg/mL in any patient, regardless of age, effectively rules out acute CHF with a 99% negative predictive value. Ingestion of rayshawn doses of biotin (>5 mg/day) taken within 8 hours of drawing blood sample can interfere with this immunoassay test. Nicolette Correa MD CHEMISTRY ORDERABLE S Final Result [facility] [address] [facility] , [place] [address] * CPAP TITRATION (04/20/2023 9:20 AM EST) [facility] KARI SLEEP OVERALL RESULT [facility] DATE OF STUDY 04/20/2023 [facility] Study Type Adult [facility] PATIENT WEIGHT 375.0 [facility] APNEA INDEX 0.9 SE LAB Apnea Hypopnea Index 12.7 [facility] RDI Index 12.7 [facility] Central Apnea Index 0.8 [facility] REM AHI 16.7 SE LAB Min O2 Saturation 84 [facility] RDI REM 16.7 [facility] RDI nonREM 10.5 [facility] CPAP Device Name [facility] CPAP Pressure [facility] IPAP Pressure [facility] EPAP Pressure [facility] Auto Pressure Support [facility] Supplemental O2 [facility] Mask Type ResMed F20 [facility] Mask Size Small [facility] APAP Range [facility] Auto-IPAP Max [facility] Auto-IPAP Min [facility] Pressure Support [facility] PAP Compliance % [facility] Compliance Days [facility] Residual AHI [facility] PAP 90-95th Percentile [facility] 04/20/2023 9:20 AM EST Kristen Louie MD SLEEP CENTER ORDERABLES Final Result [facility] [address] [place] [address] * ACUTE HEPATITIS PANEL (03/22/2023 3:16 PM EST) [facility] Hep Bs Ag Non-Reacti ve Non-Reacti ve [...] 03/22/2023 3:16 PM EST us Arminda Wilson SAUTE CHEF CHEMISTRY ORDERABLES Final Result [facility] [address] [facility] , [place] [address] * EC ECHOCARDIOGRAM COMPLETE W DOPPLER AND [...] is normal. * No significant valve disease. Result [facility] Arminda Wilson APRN IMG ECHO ORDERABLES Final R esult * PROTEIN/CREATININE RATIO URINE (02/09/2023 10:14 AM EDT) Urine Protein 11.4 mg/dL 02/09/2023 4:59 PM EDT [facility] Urine Creatinine 207.6 mg/dL 02/09/2023 4:59 PM EDT [facility] Ur Protein/Creat 0.05 <=0.14 mg/mg 02/09/2023 4:59 PM EDT [facility] Urine URINE SPECIMEN COLLECTION / Unknown 02/09/2023 10:14 AM EDT 02/09/2023 10:14 AM EDT Result [facility] Pat Castro MD URINE ORDERABLES Final Result [facility] [address] [facility], [place] [address] * [id number] 1 ABS, IGG/IGM/IGA -REF LAB (02/09/2023 10:00 AM EDT) B2 GP 1 IgG <10 <=20 SGU 02/10/2023 10:47 PM EDT [facility] B2 GP 1 IgM <10 <=20 SMU 02/10/2023 10:47 PM EDT [facility] [employer] Comment: INTERPRETIVE INFORMATION: [id number] I, IgG and IgM Antibody The persistent [...] <10 <=20 ALEJO 02/10/2023 10:47 PM EDT [facility] [place] Comment: Performed By: [facility] [address] [place] [address] Br[employer]: Jair Araiza MD, PhD CLIA Number: [id number] Blood VENOUS BLOOD / Unknown Venipuncture / Unknown 02/09/2023 10:00 AM EDT 02/09/2023 10:00 AM EDT us Pat Castro MD CHEMISTRY ORDERABLES Final Resul t Performing Organization Address [facility]/ZIP Co de Phone Number [facility] [address] [place] [address] * CARDIOLIPIN ANTIBODY, IGA-REF LAB (02/09/2023 10:00 AM EDT) Cardiolipin IgA Antibody <10 <=11 APL 02/11/2023 9:35 AM EDT [facility] Comment: INTERPRETIVE INFORMATION: Cardiolipin Antibodies, IgA <=11 APL: Negative 12-19 APL: Indeterminate 20-80 APL: Low to Moderately Positive 81 APL or above: High Positive Performed By: [facility] [address] [place] [address] Brass Cutter: Jair Araiza MD, PhD CLIA Number: [id number] Blood VENOUS BLOOD / Unknown Venipuncture / Unknown 02/09/2023 10:00 AM EDT 02/09/2023 10:00 AM EDT us Pat Castro MD IMMUNOLOGY ORDERABLES Final Resu lt Performing Organization Address City/[facility]/ZIP Co de Phone Number [facility] [address] [place], [place] [phone] * SSB (LA) IGG (02/09/2023 10:00 AM EDT) Pathologist [facility] SSB (LA) IgG (AAU/mL) 17 <=180 02/10/2023 10:53 AM EDT [facility] Blood VENOUS BLOOD / Unknown Venipuncture / Unknown 02/09/2023 10:00 AM EDT 02/09/2023 10:00 AM EDT Narrative [facility] - 02/10/2023 10:53 AM EDT Interpretive Information: [...] varying platforms/methodologies should not be considered equivalent. Pat Castro MD IMMUNOLOGY ORDERABLES Final Resu lt Performing Organization Address [facility] de Phone Number [facility] [address] [place] [address] , [place] [address] * SSA (RO) IGG (02/09/2023 10:00 AM EDT) SSA (RO) IgG (AAU/mL) 47 <=180 AAU/mL 02/10/2023 10:52 AM EDT [facility] Blood VENOUS BLOOD / Unknown Venipuncture / Unknown 02/09/2023 10:00 AM EDT 02/09/2023 10:00 AM EDT Narrative [facility] - 02/10/2023 10:52 AM EDT Interpretive Information: [...] varying platforms/methodologies should not be considered equivalent. Pat Castro MD IMMUNOLOGY ORDERABLES Final Resu lt Performing Organization Address [facility] Co de Phone Number [facility] [address] [facility] , [place] [address] * SYPHILIS SCREEN WITH REFLEX RPR QUANT (02/09/2023 10:00 AM EDT) Pathologist [facility] Trep Ab Index 0.06 <=0.99 Index Value 02/09/2023 5:07 PM EDT [facility] Comment: < 1.00 - Non-Reactive >=1.00 - Reactive NOTE: All reactive results will be reflexed to Quantitative Non-Treponemal(RPR)test. Blood VENOUS BLOOD / Unknown Venipuncture / Unknown 02/09/2023 10:00 AM EDT 02/09/2023 10:00 AM EDT us Pat Castro MD CHEMISTRY ORDERABLES Final Resul t Performing Organization Address [facility] Co de Phone Number [facility] [address] , [place] [address] * (ABNORMAL) THYROID PEROXIDASE (TPO) ANTIBODY (02/09/2023 10:00 AM EDT) TPO Ab 515.37(H) <=5.59 IU/mL 02/09/2023 5:14 PM EDT [facility] Blood VENOUS BLOOD / Unknown Venipuncture / Unknown 02/09/2023 10:00 AM EDT 02/09/2023 10:00 AM EDT us Pat Castro MD IMMUNOLOGY ORDERABLES Final Resu lt Performing Organization Address [facility] de Phone Number [facility] [address] , [address] [place] [phone] * (ABNORMAL) TSH REFLEX (02/09/2023 10:00 AM EDT) Only the most recent of5 resultswithin the time period is included. TSH Reflex 0.235(L) 0.270 - 4.200 mcIU/mL 02/09/2023 3:11 PM EDT [facility] [employer] Blood VENOUS BLOOD / Unknown Venipuncture / Unknown 02/09/2023 10:00 AM EDT 02/09/2023 10:00 AM EDT Narrative [facility] - 02/09/2023 3:11 PM EDT Ingestion of rayshawn doses of biotin (>5 mg/day) taken within 8 hours of drawing blood sample can interfere with this immunoassay test. us Pat Castro MD CHEMISTRY ORDERABLES Final Resul t [facility] [address] [facility], [place] [address] * GARZA ANTIBODY, IGG -REF LAB (02/09/2023 10:00 AM EDT) Garza Ab IgG 3 0 - 40 AU/mL 02/10/2023 6:13 PM EDT [facility] Comment: INTERPRETIVE INFORMATION: Garza (CLIFF) Antibody, IgG 29 AU/mL or Less ............. Negative 30 - 40 AU/mL ................ Equivocal 41 AU/mL or Greater .......... Positive Garza antibody is highly specific (greater than 90 percent) for systemic lupus erythematosus (SLE) but only occurs in 30-35 percent of SLE cases. The presence of antibodies to Garza has variable associations with SLE clinical manifestations. Performed By: [facility] [address] [place] [address] Brass Cutter: Jair Araiza MD, PhD CLIA Number: [id number] Blood VENOUS BLOOD / Unknown Venipuncture / Unknown 02/09/2023 10:00 AM EDT 02/09/2023 10:00 AM EDT us Pat Castro MD IMMUNOLOGY ORDERABLES Final Resu lt [facility] [address] [place] [address] * COMPLEMENT PANEL (02/09/2023 10:00 AM EDT) C3 Complement 175 90 - 180 mg/dL 02/09/2023 3:52 PM EDT [facility] C4 Complement 20 10 - 40 mg/dL 02/09/2023 3:52 PM EDT [facility], [facility] Blood VENOUS BLOOD / Unknown Venipuncture / Unknown 02/09/2023 10:00 AM EDT 02/09/2023 10:00 AM EDT us Pat Castro MD IMMUNOLOGY ORDERABLES Final Resu lt [facility] [address] [facility], [place] [address] * RIBONUCLEIC PROTEIN ANTIBODY, IGG -REF LAB (02/09/2023 10:00 AM EDT) Garza/BLISTER PACKAGING MACHINE OPERATOR Ab, IgG 3 0 - 19 Units 02/11/2023 2:08 PM EDT [facility] Comment: INTERPRETIVE INFORMATION: Garza/BLISTER PACKAGING MACHINE OPERATOR (CLIFF) Antibody, IgG 19 Units or Less ............. Negative 20 to 39 Units ............... Weak Positive 40 to 80 Units ............... Moderate Positive 81 Units or greater .......... Strong Positive Garza/BLISTER PACKAGING MACHINE OPERATOR antibodies are frequently seen in patients with mixed connective tissue disease (MCTD) and are also associated with other systemic autoimmune rheumatic diseases (SARDs) such as systemic lupus erythematosus (SLE), systemic sclerosis, and myositis. Antibodies targeting the Garza/BLISTER PACKAGING MACHINE OPERATOR antigenic complex also recognize Garza antigens, therefore, the Garza antibody response must be considered when interpreting these results. Performed By: [facility] [address] [place] [address] Brass Cutter: Jair Araiza MD, PhD CLIA Number: [id number] Blood VENOUS BLOOD / Unknown Venipuncture / Unknown 02/09/2023 10:00 AM EDT 02/09/2023 10:00 AM EDT us Pat Castro MD IMMUNOLOGY ORDERABLES Final Resu lt [facility] [address] [place], [place] [id number] * DSDNA AB REFLEX TO TITER -REF LAB (02/09/2023 10:00 AM EDT) DNA Ab DS 7 0 - 24 IU 02/11/2023 11:26 PM EDT [facility] Comment: INTERPRETIVE INFORMATION: Double-Stranded DNA (dsDNA) Ab IgG KROTNEY 24 IU or less........Negative 25-30 IU.............Borderline Positive 30-60 IU.............Low Positive 60-200 IU............Positive 201 IU or greater....Strong Positive Positivity for anti-double stranded DNA (anti-dsDNA) IgG antibody is a diagnostic criterion of systemic lupus erythematosus (SLE). Specimens are initially screened by enzyme-linked immunosorbent assay (KORTNEY). If ordered as reflex ([id number]), positive KORTNEY results (>24 IU) will be [...] recommendations for testing may be found at [email or web address]. Performed By: [facility] [address] [place] [address] Brass Cutter: Jair Araiza MD, PhD CLIA Number: [id number] Blood VENOUS BLOOD / Unknown Venipuncture / Unknown 02/09/2023 10:00 AM EDT 02/09/2023 10:00 AM EDT us Pat Castro MD IMMUNOLOGY ORDERABLES Final Resu lt [facility] [address] [place] [address] * (ABNORMAL) LUPUS ANTICOAGULANT PANEL -REF LAB (02/09/2023 10:00 AM EDT) PT D 13.0 12.0 - 15.5 sec 02/10/2023 10:14 PM EDT [facility] PTT D 39 32 - 48 sec 02/10/2023 10:14 PM EDT [facility] Thrombin Time Not Applicable 14.7 - 19.5 sec 02/10/2023 10:14 PM EDT [facility] Reptilase Pat Not Applicable <=21.9 sec 02/10/2023 10:14 PM EDT [facility] PTT Hep Neut Not Applicable 32 - 48 sec 02/10/2023 10:14 PM EDT [facility] PTT Lexi Rflx Not Applicable 32 - 48 sec 02/10/2023 10:14 PM EDT [employer] [employer] Plt Neut Not Applicable Negative 02/10/2023 10:14 PM EDT [facility] DRVVT 27(L) 33 - 44 sec 02/10/2023 10:14 PM EDT [employer] DRV Lexi Not Applicable 33 - 44 sec 02/10/2023 10:14 PM EDT [employer] DRVVT Confirm Not Applicable Negative ratio 02/10/2023 10:14 PM EDT [employer] [facility] [employer] Hexag Phos Rflx Not Applicable Negative 02/10/2023 10:14 PM EDT [employer] Lupus Anticoagulant Interp See Note 02/10/2023 10:14 PM EDT [employer] Comment: Lupus anticoagulant not detected. The [...] has not already been performed. Performed By: [facility] [address] [place] [address] Brass Cutter: Jair Araiza MD, PhD CLIA Number: [id number] Blood VENOUS BLOOD / Unknown Venipuncture / Unknown 02/09/2023 10:00 AM EDT 02/09/2023 10:00 AM EDT us Pat Castro MD CHEMISTRY ORDERABLES Final Resul t [facility] [address] [place] [address] * CARDIOLIPIN ANTIBODIES IGG/ IGM-REF LAB (02/09/2023 10:00 AM EDT) Cardiolipin IgG Antibody <10 <=14 GPL 02/11/2023 9:35 AM EDT [facility] Comment: INTERPRETIVE INFORMATION: Anti-Cardiolipin IgG Ab <=14 [...] 10 <=12 MPL 02/11/2023 9:35 AM EDT [facility] Comment: INTERPRETIVE INFORMATION: Anti-Cardiolipin IgM <=12 MPL: [...] other criteria phospholipid antibody tests. Performed By: [facility] [address] [place] [address] Brass Cutter: Jair Araiza MD, PhD CLIA Number: [id number] Blood VENOUS BLOOD / Unknown Venipuncture / Unknown 02/09/2023 10:00 AM EDT 02/09/2023 10:00 AM EDT us Pat Castro MD IMMUNOLOGY ORDERABLES Final Resu lt [facility] [address] [place] [address] * POLYSOMNOGRAPHY 4 OR MORE PARAMETERS (01/24/2023 9:25 AM EDT) [facility] Macey PIERCE SLEEP OVERALL RESULT [facility] DATE OF STUDY 01/24/2023 [facility] Study Type Adult [facility] PATIENT WEIGHT 375.0 SE LAB APNEA INDEX 0.2 SE LAB Apnea Hypopnea Index 15.6 SE LAB RDI Index 15.6 SE LAB Central Apnea Index 0.0 [facility] REM AHI 38.3 [facility] Min O2 Saturation 70 [facility] LAB RDI REM 38.3 [facility] RDI nonREM 12.1 [facility] CPAP Device Name [facility] CPAP Pressure [facility] IPAP Pressure [facility] EPAP Pressure [facility] Auto Pressure Support [facility] Supplemental O2 [facility] Mask Type [facility] Mask Size [facility] APAP Range [facility] Auto-IPAP Max [facility] Auto-IPAP Min [facility] Pressure Support [facility] PAP Compliance % SE LAB Compliance Days [facility] Residual AHI [facility] PAP 90-95th Percentile [facility] 01/24/2023 9:25 AM EDT us Kristen Louie MD SLEEP CENTER ORDERABLES Final Result [facility] [address] [place], [place] [id number] * CT SOFT TISSUE NECK W CONTRAST [...] CLINICAL HISTORY: 47 years-old with R13.13-Dysphagia, pharyngeal [id number]-BLP-26-CM COMPARISON: MRI cervical spine 03/01/2016. PROCEDURE COMMENTS: [...] AM CLINICAL HISTORY: 47 years-old with R13.13-Dysphagia, [id number]-[id number]-20-CM COMPARISON: MRI cervical spine 03/01/2016. PROCEDURE COMMENTS: [...] please contactthe office of the ordering clinician. [employer] SAUTE CHEF IMG CT ORDERABLES Final Res ult * POCT GLYCATED HEMOGLOBIN, TOTAL (10/28/2022 11:55 AM EDT) Only the most recent of2 resultswithin the time period is included. Hemoglobin A1C 5.9 4 - 6 % SEP OFFICE Lot Number SEP OFFICE Expiration Date SEP OFFICE SeriAl # SEP OFFICE 10/28/2022 11:5 5 AM EDT [employer] SAUTE CHEF POINT OF CARE TEST ORDERABL ES Final Result SEP OFFICE * POCT URINALYSIS AUTOMATED (10/28/2022 11:48 AM EDT) Color, UA yellow CLEAR,YELL OW,ORANGE, RUST SEP OFFICE Clarity, UA clear CLEAR,CLOU DY SEP OFFICE Glucose, UA neg G/DL% SEP OFFICE Bilirubin, UA neg POS/NEG SEP OFFICE Ketones, UA neg POS/NEG SEP sales order coordinator Grav, UA 1.025 1.001 - 1.035 G/DL [...] Urine 10/28/2022 11:4 8 AM EDT Arminda Wilson APRN POINT OF CARE TEST ORDERABL ES Final Result SEP OFFICE * MISCELLANEOUS LAB (09/22/2022 3:06 PM EDT) [facility] COMMENT See Scanned Image 10/02/2022 7:41 AM EDT [facility] Blood VENOUS BLOOD / Unknown Venipuncture / Unknown 09/22/2022 3:06 PM EDT 09/27/2022 5:03 PM EDT Arminda Wilson APRN HEMATOLOGY ORDERABLES Final Result EXTERNAL LAB See Scanned Report [facility] [address] [place] [address] * UT ARTHROCENTESIS ASPIR&/INJ MAJOR JT/BURSA W/O US (08/19/2022 [...] MD PROCEDURE/MINOR SURGICAL ORDERA BLES Final Result ORTHOCINCY * (ABNORMAL) LIPID SCREEN (07/16/2021 1:40 PM EDT) Only the most recent of3 resultswithin the time period is included. Cholesterol 142 <200 mg/dL 07/16/2021 7:41 PM EDT [facility] Comment: < 200 Desirable 200 - 239 Borderline High >= 240 High Triglyceride 139 <150 mg/dL 07/16/2021 7:41 PM EDT [facility] Comment: < 150 Normal 150 - 199 Borderline High 200 - 499 High >= 500 Very High HDL 39(L) >=40 mg/dL 07/16/2021 7:41 PM EDT [facility] Comment: > 60 Optimal 40 - 60 Acceptable < 40 Low LDL Calculated 78 <100 mg/dL 07/16/2021 7:41 PM EDT [facility] Comment: < 100 Optimal 100 - 129 Near or above optimal 130 - 159 Borderline High 160 - 189 High >= 190 Very High Non-HDL-C Calculated 103 <=129 mg/dL 07/16/2021 7:41 PM EDT [facility] Comment: <130 Desirable 130-159 Above Desirable 160-189 Borderline High 190-219 High >= 220 Very High Fasting Specimen? Yes None 022 7:41 PM EDT [facility] Blood VENOUS BLOOD / Unknown Venipuncture / Unknown 07/16/2021 1:40 PM EDT 07/16/2021 1:40 PM EDT Arminda Wilson APRN CHEMISTRY ORDERABLES Final Result [facility] [address] [facility] , [place] [address] [facility] [address] [place] [address] * CORONAVIRUS 2019 (04/06/2021 10:53 AM EST) Only the most recent of3 resultswithin the time period is included. Pathologist [facility] CORONAVIRUS [id number] Not Detected Not Detected 04/07/2021 12:48 AM EST [facility] Comment: Caution should be exercised when interpreting [...] of COVID-19. Test is performed on the [employer] platform under the FDA's Emergency Use Authorization (EUA). [employer] Provider Fact Sheet: https://www.fda.gov/media/792482/download [employer] Patient Fact Sheet: https://www.fda.gov/media/085208/download Performed at [facility] [address] [place] [address] CLIA [id number] Swab BOTH ANTERIOR NARES / Unknown 04/06/2021 10:53 AM EST 04/06/2021 10:53 AM EST Arminda Wilson APRN MICROBIOLOGY - GENERAL LAKESHIA BALDWIN Final Result [facility] [address], [place] [address] * (ABNORMAL) WOUND CULTURE (STAIN INCLUDED) (09/08/2020 1:21 PM EDT) Only the most recent of7 resultswithin the time period is included. Pathologist [facility] Culture Positive Growth(A) 2020 7:36 AM EDT [facility] Culture Sparse growth of Staphylococcus aureus SUSCEPTIBI LITY RESULT 09/11/2020 7:36 AM EDT [facility] Stain Moderate RBCs 09/11/2020 7:36 AM EDT [facility] Stain Rare WBCs 09/11/2020 7:36 AM EDT [facility] Stain No organisms seen 021 7:36 AM EDT [facility] Swab [place] / Unknown 09/08/2020 1:21 [...] ciprofloxacin should also not be used alone. us Manuel Moran MD MICROBIOLOGY - GENERAL ORDERABLE S Final Result [facility] [address] , [place] [address] * PATHOLOGY TISSUE REQUEST (08/11/2020 9:57 AM EDT) Only the most recent of2 resultswithin the time period is included. CASE REPORT Surgical Pathology Case: [id number] Authorizing Provider: Beverly Hernandez DO Collected: 08/11/2020 0957 Ordering Location: [facility] Received: 08/11/2020 1312 Pathologist: Teo Resendez MD Specimen: Uterus, Left Ovary, cervix and uterus 08/13/2020 7:40 PM EDT [facility] FINAL DIAGNOSIS Uterus and left ovary, hysterectomy and left oophorectomy: - Focal inactive endometrium. - Adenomyosis. - Leiomyoma (1.0 cm in greatest dimension) - Cervix with nabothian cyst - Left ovary with benign cyst 08/13/2020 7:40 PM EDT [facility] at 1940 EDT MICROSCOPIC DESCRIPTION Microscopic examination is performed and the findings corroborate the diagnosis. 08/13/2020 7:40 PM EDT [facility] EMBEDDED IMAGES 08/13/2020 7:40 PM EDT [facility] GROSS DESCRIPTION Part A) Received [...] glistening lining with no distinct lesions identified. Director Funeral sections are submitted as follows: A1: Anterior cervix A2: Posterior cervix A3: Anterior endomyometrium with cavitation and myometrial nodule A4: Posterior endomyometrium A5: Ovary with cystic structure. /MK 08/13/2020 7:40 PM EDT [facility] Tissue UTERINE STRUCTURE / Unknown 08/11/2020 9:57 AM EDT 08/11/2020 1:12 PM EDT us Beverly Hernandez DO PATHOLOGY ORDERABLES Fi nal Result [facility] [address] [place] [address] [facility] [address] [place] [address] * INTRAOP AIRWAY PLACEMENT (08/11/2020 8:21 AM EDT) Narrative [facility] - 08/11/2020 8:21 AM EDT [...] Atraumatic and Unchanged Insertion attempts: 1 Title: LEATHER SHAVER us Maximino Lehman MD [place] ANESTHESIA Final Res ult Performing Organization Address [facility] Co de Phone Number [facility] [address] [place] [address] * HUMAN CHORIONIC GONADOTROPIN QUANTITATIVE (08/05/2020 11:20 AM EDT) Only the most recent of2 resultswithin the time period is included. Pathologist [facility] Hcg Quant 3 <5 mIU/mL 08/05/2020 11:41 AM EDT [facility] Blood VENOUS BLOOD / Unknown Venipuncture / Unknown 08/05/2020 11:20 AM EDT 08/05/2020 11:23 AM EDT Narrative [facility] - 08/05/2020 11:41 AM [...] CHEMISTRY ORDERABLES Final Result Performing Organization Address City/[facility] Co de Phone Number [facility] [address] [place] [address] * BB HISTORY CHECK (08/05/2020 11:05 AM EDT) Only the most recent of2 resultswithin the time period is included. Pathologist [facility] BB HISTORY CHECK (1) Previous History OK 08/05/2020 12:00 PM EDT [facility] Blood VENOUS BLOOD / Unknown Venipuncture / Unknown 08/05/2020 11:05 AM EDT 08/05/2020 11:23 AM EDT Lesvia Savage [employer]ATOR [employer] BLOOD BANK ORDERABLES Final Result Performing Organization Address City/[facility]/ZIP Co de Phone Number [facility] [address] [place] [address] * SURGERY DATE (08/05/2020 11:05 AM EDT) Surgery Date (1) Complete 08/05/2020 12:01 PM EDT [facility] Blood VENOUS BLOOD / Unknown Venipuncture / Unknown 08/05/2020 11:05 AM EDT 08/05/2020 11:23 AM EDT Lesvia Savage ELEVATOR [employer] BLOOD BANK ORDERABLES Final Result Performing Organization Address City/[facility] Co de Phone Number [facility] [address] [place] [address] * ABORH (08/05/2020 11:05 AM EDT) Only the most recent of2 resultswithin the time period is included. ABORH Int O POS 08/05/2020 12:35 PM EDT [facility] Blood VENOUS BLOOD / Unknown Venipuncture / Unknown 08/05/2020 11:05 AM EDT 08/05/2020 11:23 AM EDT Lesvia Savage E[employer]ATOR [employer] BLOOD BANK ORDERABLES Final Result Performing Organization Address City/[facility]/ZIP Co de Phone Number [facility] [address] [place] [address] * ANTIBODY SCREEN IGG (08/05/2020 11:05 AM EDT) Pathologist [facility] ABSC IgG Int Negative 08/05/2020 12:35 PM EDT [facility] Blood VENOUS BLOOD / Unknown Venipuncture / Unknown 08/05/2020 11:05 AM EDT 08/05/2020 11:23 AM EDT Lesvia Savage NP BLOOD BANK ORDERABLES Final Result [facility] [address] [place] [address] * MOLECULAR VAGINITIS PANEL (MVP) (07/23/2020 3:24 PM EDT) Bacterial Vaginosis Not Detected Not Detected 07/23/2020 10:49 PM EDT [facility] Comment:Normal/Balanced vagi nal microbiome. Nakaseomyces glabrata (previously Joann glabrata) Not Detected Not Detected 07/23/2020 10:49 PM EDT [facility] Joann group Not Detected Not Detected 07/23/2020 10:49 PM EDT [facility] Comment:C. albicans, C. trop icalis, C. parapsilosis, and/or C. dubliniensis NOT detected. Joann krusei Not Detected Not Detected 07/23/2020 10:49 PM EDT [facility] Trichomonas vaginalis Not Detected Not Detected 07/23/2020 10:49 PM EDT [facility] Swab SPECIMEN FROM VAGINA / Unknown 07/23/2020 3:24 PM EDT 07/23/2020 3:24 PM EDT Narrative [facility] - 07/23/2020 10:49 PM EDT Test performed using the [employer] Global Vaginal Panel, a real-time polymerase chain (PCR) molecular nucleic acid amplification test. us Beverly Hernandez DO MICROBIOLOGY - GENERAL ORDERABLES Final Result [facility] [address] [facility] , [place] [address] * CHLAMYDIA/GC BY TMA (06/25/2020 6:00 PM EST) Only the most recent of2 resultswithin the time period is included. Chlamydia trachomatis Not Detected Not Detected 06/26/2020 12:30 AM EST [facility] Neisseria gonorrhoeae Not Detected Not Detected 06/26/2020 12:30 AM EST [facility] Swab SPECIMEN FROM UTERINE CERVIX / Unknown 06/25/2020 6:00 PM EST 06/25/2020 6:05 PM EST Narrative [facility] - 06/26/2020 12:30 AM EST Testing methodology is evs tech mediated amplification (TMA) using the Aptima Combo 2 assay from [employer]. A negative result does not completely rule [...] OR DERABLES Final Result Performing Organization Address City/[facility]/ZIP Co de Phone Number [facility] , [place] [id number] * TRICHOMONAS AG (06/25/2020 6:00 PM EST) Trichomonas Ag Not Detected Not Detected 2020 6:40 PM EST [facility] Swab SPECIMEN FROM VAGINA / Unknown 06/25/2020 6:00 PM EST 06/25/2020 6:29 PM EST us Parveen Syed MD MICROBIOLOGY - GENERAL OR DERABLES Final Result Performing Organization Address [facility] Co de Phone Number [facility] , [place], [place] [id number] * GRAM STAIN (STAIN ONLY) (06/25/2020 6:00 PM EST) Stain Abundant epithelial cells 06/25/2020 6:41 PM EST [facility] Stain Few WBCs 06/25/2020 6:41 PM EST [facility] Stain Morphotypes consistent with normal vaginal microbiota. 06/25/2020 6:41 PM EST [facility] Swab SPECIMEN FROM VAGINA / Unknown 06/25/2020 6:00 PM EST 06/25/2020 6:05 PM EST us Parveen Syed MD MICROBIOLOGY - GENERAL OR DERABLES Final Result [facility], [facility] [address] [facility], [place] [address] * EXTRA STARK URINE CX (06/25/2020 5:44 PM EST) Urine URINE SPECIMEN COLLECTION, CLEAN CATCH / Unknown 06/25/2020 5:44 PM EST 06/25/2020 5:47 PM EST us Parveen Syed MD MICROBIOLOGY - GENERAL OR DERABLES Final Result Performing Organization Address [facility]/[place] [address] * LH/FSH (06/10/2020 2:01 PM EST) LH 24.00 mIU/mL 06/10/2020 7:58 PM EST [facility], [facility] Comment: Suggested Reference Ranges (mIU/mL) Females Follicular Phase 2.4 - 12.6 Ovulation Phase 14.0 - 95.6 Luteal Phase 1.0 - 11.4 Postmenopause 7.7 - 58.5 Males 1.7 - 8.6 FSH 25.90 mIU/mL 06/10/2020 7:58 PM EST [facility] Comment: Suggested Reference Range (mIU/mL) Females Follicular Phase 3.5 - 12.5 Ovulation Phase 4.7 - 21.5 Luteal Phase 1.7 - 7.7 Postmenopause 25.8 - 134.8 Males 1.5 - 12.4 Blood Venipuncture / Unknown 06/10/2020 2:01 PM EST 06/10/2020 2:01 PM EST Narrative [facility] - 06/10/2020 7:58 PM EST Ingestion of rayshawn doses of biotin (>5 mg/day) taken within 8 hours of drawing blood sample can interfere with this immunoassay test. us Manuel Moran MD IMMUNOLOGY ORDERABLES Final Resu lt [facility] [address] [facility] , [address] [place] [id number] * US PELVIS AND TRANSVAGINAL NON OB [...] NON OB COMPLETE 05/15/2020 CLINICAL HISTORY: N95.0-Postmenopausal [id number]-CM. COMPARISON: None. PROCEDURE COMMENTS: Transabdominal and endovaginal sonographic evaluation of the pelvis with pharmaceutical specialty representative images and tech notes for sent [...] NON OB COMPLETE 05/15/2020 CLINICAL HISTORY: N95.0-Postmenopausal [id number]-CM. COMPARISON: None. PROCEDURE COMMENTS: Transabdominal and endovaginal sonographic evaluationof the pelvis with pharmaceutical specialty representative images and tech notes for sent [...] which is 2.7 cm size. - Arminda Katie SAUTE CHEF IMG US ORDERABLES Final Res ult * ESTRADIOL LEVEL (04/30/2020 10:10 AM EST) Estradiol Lvl 192 pg/mL 04/30/2020 4:39 PM EST [facility] Blood VENOUS BLOOD / Unknown Venipuncture / Unknown 04/30/2020 10:10 AM EST 04/30/2020 10:12 AM EST Narrative [facility] - 04/30/2020 4:39 PM EST Follicular phase [...] can interfere with this immunoassay test. Arminda Shallowater SAUTE CHEF CHEMISTRY ORDERABLES Final Result [facility] [address] [facility] , [place] [address] * DRUM CLEANER CYTOLOGY REQUEST (PAP ONLY) (04/30/2020 9:55 AM EST) CASE REPORT Gynecologic Cytology Report Case: [id number] Authorizing Provider: Arminda Wilson APRN Collected: 04/30/2020 09 Ordering Location: [facility] Received: 04/30/2020 09 First Screen: Shaun Hull CT Specimen: LIQUID-BASED PAP - CERVICAL/ENDOCERV ICAL, Cervix, Endocervical 05/04/2020 9:13 AM EST [facility] PAP FINAL DIAGNOSIS Negative for intraepithelial lesion or malignancy 05/04/2020 9:13 AM EST [facility] at 0913 EST MICROSCOPIC DESCRIPTION Microscopic examination is performed and the findings corroborate the diagnosis 05/04/2020 9:13 AM EST [facility] PAP SMEAR ADEQUACY Satisfactory for evaluation 05/04/2020 9:13 AM EST [facility] PAP ORGANISMS NOTED Abundant bacteria present. 05/04/2020 9:13 AM EST [facility] ENDOCERVICAL T-ZONE Transformation zone absent. 05/04/2020 9:13 AM EST [facility] EMBEDDED IMAGES 9:13 AM EST [facility] PAP DISCLAIMER The Pap Smear is a screening test that aids in the detection of cervical cancer and cancer precursors. Both false positive and false negative results can occur. The test should be used at regular intervals, and positive results should be confirmed before definitive therapy. Processed using the [employer] Automated cytology screening device ([employer]). 05/04/2020 9:13 AM EST [facility] [employer] ENDOCERVICAL STRUCTURE / Unknown 04/30/2020 9:55 AM EST 04/30/2020 9:55 AM EST Arminda Wilson APRN CYTOLOGY ORDERABLES Final R esult [facility] [address] [place] [address] * POCT INFLUENZA A/B (06/12/2019 5:03 PM EST) Only the most recent of2 resultswithin the time period is included. Influenza A Ag Neg SEP OFFICE Influenza B Ag Neg SEP OFFICE Lot Number [id number] SEP OFFICE Expiration Date SEP OFFICE Flu Blue Control Line (positive internal control) Yes SEP OFFICE Clear Background (negative internal control) Yes Yes/No SEP OFFICE 06/12/2019 5:03 PM EST Arminda Katie SAUTE CHEF POINT OF CARE TEST ORDERABL ES Final [...] 12:13 PM CLINICAL HISTORY: M79.601-Pain in right eob-PHL-89-CM COMPARISON: None. PROCEDURE COMMENTS: Orthogonal views of the forearm. Minimum two views. FINDINGS: No fracture of the radial or ulnar shafts. No foreign body. No gross deformity at the elbow or wrist. Procedure Note Semaj eRy MD - 03/18/2019 XR RADIUS ULNA RIGHT AP AND LATERAL, 03/18/2019 12:13 PM CLINICAL HISTORY: M79.601-Pain in right ukf-BZF-04-CM COMPARISON: None. PROCEDURE COMMENTS: Orthogonal views of the forearm. Minimum two views. FINDINGS: No fracture of the radial or ulnar shafts. No foreign body. Nogross deformity at the elbow or wrist. IMPRESSION: No acute bony abnormality of the forearm. This exam does not constitute a diagnostic evaluation of either the wristor the elbow. If symptoms are centered over those areas, dedicated imagingsuggested. - us [facility] ORDE RABLES Final Result * XR ELBOW RIGHT AP LATERAL AND OBLIQUES (03/18/2019 12:13 PM EST) Anatomical Region Laterality Modality Elbow Radiographic Flaco ging 03/18/2019 12:1 3 PM EST Impressions 03/18/2019 12:47 PM EST No acute bony abnormality of the elbow. - Narrative 03/18/2019 12:47 PM EST XR ELBOW RIGHT AP LATERAL AND OBLIQUES, 03/18/2019 12:13 PM CLINICAL HISTORY: M79.601-Pain in right iik-VOL-87-CM COMPARISON: None. PROCEDURE COMMENTS: Routine views per ordered protocol. FINDINGS: No visible fracture or malalignment. No fat pad displacement to suggest effusion. Ulnotrochlear degenerative changes are present. Procedure Note Semaj Rey MD - 03/18/2019 XR ELBOW RIGHT AP LATERAL AND OBLIQUES, 03/18/2019 12:13 PM CLINICAL HISTORY: M79.601-Pain in right nvk-XMQ-95-CM COMPARISON: None. PROCEDURE COMMENTS: Routine views per ordered protocol. FINDINGS: No visible fracture or malalignment. No fat pad displacementto suggest effusion. Ulnotrochlear degenerative changes are present. IMPRESSION: No acute bony abnormality of the elbow. - Arminda Wilson [facility] DIAGNOSTIC IMAGING [facility] Final Result * (ABNORMAL) ANAEROBIC CULTURE (NO STAIN) (11/02/2018 7:43 AM EDT) Only the most recent of2 resultswithin the time period is included. Culture Positive Growth(A) 11/07/2018 10:20 AM EDT [facility] Culture Moderate growth of Finegoldia magna SUSCEPTIBI LITY RESULT 11/07/2018 10:20 AM EDT [facility] Comment:No further workup. Swab STRUCTURE OF LEFT ANKLE / Unknown 11/02/2018 7:43 AM EDT 11/02/2018 8:33 AM EDT Parveen Marsh MD MICROBIOLOGY - GENERAL OR DERABLES Final Result Performing Organization Address City/[facility] Co de Phone Number [facility] [address] [facility], [place] [address] * INTRAOP AIRWAY PLACEMENT (11/02/2018 7:35 AM EDT) Narrative [facility] - 11/02/2018 7:35 AM EDT [...] attempts: 1 Attempt 1 by: otilia Title: LEATHER SHAVER Procedure Note Jeffery Vitale CRNA - 11/02/2018 [...] attempts: 1 Attempt 1 by: otilia Title: LEATHER SHAVER us Jj Tanner MD [place] ANESTHESIA Final Resul t Performing Organization Address [facility] Co de Phone Number [facility] [address] [place] [address] * NE US LOWER EXTREMITY VENOUS LEFT (10/06/2018 1:15 [...] AIRWAY PLACEMENT (09/28/2018 11:07 AM EDT) Narrative [facility] - 09/28/2018 11:07 AM EDT Brent Babita 09/28/2018 11:11 AM Intraop Airway Placement: Date/Time: 09/28/2018 10:47 AM Induction type: IV Mask size: Standard adult Pre-Oxygenation: Standard and Ramping Mask ventilation: Moderate mask ventilation Mask ventilation improved by: David Technique: Direct laryngoscope Laryngoscope blade: Stevne Blade size: 3 Grade view: II Airway type: ETT- cuffed Intubation assist devices: Stylet 14fr Device size: 7.5mm Secured at: 22 cm Secured by: Tape Measured from: Lips Placement verified: Auscultation, End tidal CO2 and Symmetric chest wall motion Condition: Atraumatic and Unchanged Insertion attempts: 2 Title: LEATHER SHAVER Procedure Note Babita Kennedy - 09/28/2018 11:07 AM EDT Intraop Airway Placement: Date/Time: 09/28/2018 10:47 AM Induction type: IV Mask size: Standard adult Pre-Oxygenation: Standard and Ramping Mask ventilation: Moderate mask ventilation Mask ventilation improved by: David Technique: Direct laryngoscope Laryngoscope blade: Steven Blade size: 3 Grade view: II Airway type: ETT- cuffed Intubation assist devices: Stylet 14fr Device size: 7.5mm Secured at: 22 cm Secured by: Tape Measured from: Lips Placement verified: Auscultation, End tidal CO2 and Symmetric chestwall motion Condition: Atraumatic and Unchanged Insertion attempts: 2 Title: LEATHER SHAVER us Leonides You MD [place] ANESTHESIA Edited [facility] [address] [place] [address] * Peripheral Block by Anesthesia (09/28/2018 10:58 AM EDT) Narrative [facility] - 09/28/2018 10:58 AM EDT [...] You MD ANESTHESIA ORDERABLES Fin al Result [facility] [address] [place], [place] [id number] * ESTROGENS, FRACTIONATED BY TMS -REF LAB (04/30/2018 12:00 PM EST) Estradiol 6.0 pg/mL 05/03/2018 8:08 AM EST [facility] Comment: REFERENCE INTERVAL: Estradiol by TMS Access complete set of age- and/or gender-specific reference intervals for this test in the [facility] Test Directory ([employer]). Test developed and characteristics determined by [employer] [facility] [employer] See Compliance Statement B: [employer]/ Estrone by 8.3 pg/mL 05/03/2018 8:08 AM EST [facility] Comment: REFERENCE INTERVAL: Estrone by TMS Access complete set of age- and/or gender-specific reference intervals for this test in the [facility] Test Directory ([employer]). Test developed and characteristics determined by [employer] [facility] [employer] See Compliance Statement B: [facility] Estrogens Total 14.3 pg/mL 9 8:08 AM EST [employer] Comment: Females: (pg/mL) Estrone Estradiol Total Estrogens Early follicular <150.0 30.0-100.0 30.0-250.0 Late follicular 100.0-250.0 100.0-400.0 200.0-650.0 Luteal <200.0 50.0-150.0 50.0-350.0 Post-menopausal 3.0-32.0 2.0-21.0 5.0-52.0 REFERENCE INTERVAL: Estrogens Total Calculation Access complete set of age- and/or gender-specific reference intervals for this test in the [facility] Test Directory ([employer]). Performed by [employer] [facility] [employer] [address] [place] [address] [email or web address], Dawson Ham MD, Lab. Director Blood VENOUS BLOOD / Unknown Venipuncture / Unknown 04/30/2018 12:00 PM EST 04/30/2018 12:00 PM EST Abdulkadir Montoya MD CHEMISTRY ORDERABLES Final Res ult [facility] [address] [place] [address] * SCANNED RADIOLOGY REPORT (06/30/2017 12:54 PM [...] 06/30/2017 2:49 PM EST Exercise ECG Report [facility] Interpretive Statements Type of Test: Exercise Reason [...] MD - 06/30/2017 IMPRESSION Exercise ECG Report [facility] Interpretive Statements Type of Test: Exercise Reason [...] of6 resultswithin the time period is included. Pathologist [facility] Troponin-T <0.01 <0.01 ng/mL 06/30/2017 2:41 AM EST [facility] Blood VENOUS BLOOD / Unknown Venipuncture / Unknown 06/30/2017 2:20 AM EST 06/30/2017 2:21 AM EST Narrative [facility] - 06/30/2017 2:41 AM EST Values > or = 0.01 ng/mL have been shown to have prognostic value. Abdiel Uribe MD CHEMISTRY ORDERABLES Final Result [facility] [address] [place] [address] * DIFFERENTIAL (06/06/2016 4:01 PM EST) Only the most recent of7 resultswithin the time period is included. Pathologist [facility] Neut Percent 55.2 % [facility] Lymph Percent 30.6 % [facility] [place] Percent 10.1 % [facility] Eos Percent 3.7 % [facility] Baso Percent 0.4 % [facility] Neut# 4.0 1.8 - 7.7 x10(3)/mcL [facility] Lymph# 2.2 0.6 - 4.8 x10(3)/mcL [facility] [place]# 0.7 0.0 - 1.3 x10(3)/mcL [facility] Eos# 0.3 0.0 - 0.5 x10(3)/mcL [facility] Baso# 0.0 0.0 - 0.2 x10(3)/mcL [facility] Blood specimen (specimen) 06/06/2016 4:01 PM EST 06/06/2016 9:09 PM EST Abdulkadir Montoya MD HEMATOLOGY ORDERABLES Final Re sult Performing Organization Address [facility] Co de Phone Number [facility] [address] [place] [address] * T3 FREE (06/06/2016 4:01 PM EST) Only the most recent of3 resultswithin the time period is included. T3 Free 2.67 2.00 - 4.40 pg/mL [facility] Blood specimen (specimen) UPPER LIMB STRUCTURE / Unknown 06/06/2016 4:01 PM EST 06/06/2016 9:09 PM EST Abdulkadir Montoya MD CHEMISTRY ORDERABLES Final Res ult Performing Organization Address [facility] de Phone Number [facility] [address] [place] [address] * VANCOMYCIN LEVEL TROUGH (03/30/2016 9:32 AM EST) Vanco Tr 14.3 10.0 - 20.0 mcg/mL [facility] Comment: Minimum serum concentration for infection control is 10 mcg/mL; a target therapeutic range of 15-20 mcg/mL is recommended for significant infections such as S. aureus. Toxicity does not correlate well with serum concentrations. Supratherapeutic levels are considered to be > 20 mcg/mL. Blood specimen (specimen) UPPER LIMB STRUCTURE / Unknown 03/30/2016 9:32 AM EST 03/30/2016 9:40 AM EST Ramesh Garcia MD CHEMISTRY ORDERABLES Final Re sult Performing Organization Address [facility] Co de Phone Number [facility] [address] [place] [address] * BLOOD CULTURE (03/27/2016 1:24 PM EST) Only the most recent of2 resultswithin the time period is included. Final No growth at 5 days. [facility] Blood specimen (specimen) 03/27/2016 1:24 PM EST 03/27/2016 8:31 PM EST Narrative [facility] - 04/02/2016 11:01 AM EST Draw Type->Peripheral us Samantha Lopez MD MICROBIOLOGY - GENERAL ORDERABL ES Final Result [facility] [address] [place] [address] * MRI LUMBAR SPINE W WO CONTRAST [...] (03/27/2016 9:30 AM EST) RBC Morph Normal [facility] Blood specimen (specimen) 03/27/2016 9:30 AM EST 03/27/2016 9:40 AM EST Samantha Lopez MD HEMATOLOGY ORDERABLES Final Res ult Performing Organization Address [facility] Co de Phone Number [place] [phone] * XR LUMBAR SPINE SINGLE VW (03/11/2016 [...] years .Female. M51.26-Other intervertebral disc displacement, lumbar gbkmsg-OVR-07-CM M54.6-Bwrqxnxofqh-STQ-10-CM. Technical: Axial, sagittal T1 and T2 imaging. [...] 40 years .Female. M51.26-Other intervertebral discdisplacement, lumbar mcsbwk-PLF-47-CM M54.8-Ukosmycieak-PAU-10-CM. Technical: Axial, sagittal T1 and T2 imaging. [...] No neural foraminal narrowing. Ramesh Garcia MD [facility] MRI ORDERABLES Final Resu lt * (ABNORMAL) POCT GLUCOSE (12/29/2015 4:42 PM EDT) [facility] Glucose 114 60 - 200 MG/DL SEP [...] AM History: 40 years .Female. R20.2-Paresthesia of ejyl-ODC-91-CM M54.40-Lumbago with sciatica, unspecified jsyb-XUJ-93-CM. Low back pain. Bilateral leg pain. Numbness [...] AM History: 40 years .Female. R20.2-Paresthesia of fwip-PLY-46-CM M54.40-Lumbago with sciatica, unspecified souj-JKO-47-CM. Low back pain. Bilateral leg pain. Numbness [...] large acute posterior disc herniation at the L5/P8gixef which is causing severe left side and moderate to severe right-sidedlateral recess stenosis as well as mild central canal stenosis. This herniationhas developed in the interval from the earlier examination of March2014. Code jot today Antonella Winston PA-C IMG MRI ORDERABLES Final [...] 10/29/2015 3:29 PM HISTORY: W19.XXXD-Unspecified fall, subsequent fvlggpsov-WVN-12-CM M25.552-Pain in left ajp-PDP-80-CM Procedure Note Aracely Khoury MD - 10/29/2015 XR HIP LEFT AP AND LATERAL: 10/29/2015 3:29 PM HISTORY: W19.XXXD-Unspecified fall, subsequent jwsvnznxr-VLR-68-CM M25.552-Pain in left sgb-HES-47-CM IMPRESSION: No significant osseous, joint or soft [...] 10/29/2015 3:29 PM HISTORY: W19.XXXD-Unspecified fall, subsequent kxcdejccm-WQG-07-CM M54.42-Lumbago with sciatica, left cgzi-YWD-11-CM Alignment is normal. No fracture subluxation or pars defect identified. There is mild narrowing of L5-S1 disc unchanged from 03/06/2014. Procedure Note Glendy Kim MD - 10/29/2015 XR LUMBAR SPINE AP LATERAL AND OBLIQUES 10/29/2015 3:29 PM HISTORY: W19.XXXD-Unspecified fall, subsequent aibxunhke-VLE-33-CM M54.42-Lumbago with sciatica, left nxyg-BUZ-00-CM Alignment is normal. No fracture subluxation or [...] is included. Color, UA YEL Clear, Yellow, [place], Rust SEP OFFICE Clarity, UA CLR Clear, Cloudy SEP OFFICE Glucose, UA NEG g/dl% SEP OFFICE Bilirubin, UA NEG Pos/Neg SEP OFFICE Ketones, UA NEG Pos/Neg SEP sales order coordinator Grav, UA 1.015 1.001 - 1.035 g/dl SEP OFFICE Blood, UA 3+ Pos/Neg SEP OFFICE pH, UA 6.0 5.0 - 8 SEP OFFICE Protein, UA NEG Pos/Neg SEP OFFICE Urobilinogen, UA 0.2 0.2 - 1.0 mg/dL SE[facility] Leukocytes, UA NEG Pos/Neg SEP OFFICE Nitrite, UA NEG Pos/Neg SEP OFFICE UA Appear POC NA SEP OFFICE Lot Number [id number] SEP OFFICE Expiration Date 12/2016 SEP OFFICE SeriAl # NA SEP OFFICE Urine specimen (specimen) 08/21/2015 11:10 AM EDT us Manuel Moran MD POINT OF CARE TEST ORDERABLES Fi nal Result SEP OFFICE * PATHOLOGY TISSUE REPORT (07/29/2015 2:33 PM EDT) Only the most recent of2 resultswithin the time period is included. Surgical Pathology Report PATIENT NAME:GISELA PEREZ Surgical Pathology Report Accession Number Collected Date/Time Received Date/Time [id number] 07/29/15 14:33 EDT 07/29/15 22:11 EDT Diagnosis [...] cysts up to 1.1 cm in diameter. Director Funeral sections are submitted as follows: 2A-2B: bilateral fallopian tubes 2C-2E: ovary / BC DRB/ELLOIT Microscopic Description Microscopic examination is performed and the findings corroborate the diagnosis. [facility] 07/29/2015 2:33 PM EDT us Manuel Moran MD PATHOLOGY ORDERABLES Final Resul t [facility] [address] [place] [address] * CT ABD PEL ED FAST W [...] Trichomonas seen Negative for yeast Rare WBC's [facility] Vaginal swab (specimen) 07/27/2015 4:40 PM EDT 07/27/2015 4:45 PM EDT Parveen Rodriguez MD MICROBIOLOGY - GENERAL ORDERABLE S Final Result Performing Organization Address [facility] de Phone Number [facility] [address] [place] [address] * HCG QUALITATIVE (07/27/2015 3:35 PM EDT) HCG QUAL Negative [facility] Blood specimen (specimen) 07/27/2015 3:35 PM EDT 07/27/2015 3:39 PM EDT Parveen Rodriguez MD CHEMISTRY ORDERABLES Edited Resu lt - Final Performing Organization Address [facility] de Phone Number [facility] [address] [place] [address] * PROLACTIN LEVEL (02/05/2015 4:25 PM EDT) Prolactin 17.43 4.79 - 23.30 ng/mL [facility] Blood specimen (specimen) UPPER LIMB STRUCTURE / Unknown 02/05/2015 4:25 PM EDT 02/05/2015 8:55 PM EDT Abdulkadir Montoya MD CHEMISTRY ORDERABLES Final Res ult Performing Organization Address [facility] [place] [address] * LUTEINIZING HORMONE (02/05/2015 4:25 PM EDT) LH 10.35 mIU/mL [facility] Comment: Suggested Reference Ranges (mIU/mL) Females Follicular Phase 2.4 - 12.6 Ovulation Phase 14.0 - 95.6 Luteal Phase 1.0 - 11.4 Postmenopause 7.7 - 58.5 Males 1.7 - 8.6 Blood specimen (specimen) UPPER LIMB STRUCTURE / Unknown 02/05/2015 4:25 PM EDT 02/05/2015 8:55 PM EDT Abdulkadir Montoya MD CHEMISTRY ORDERABLES Final Res ult Performing Organization Address [facility] de Phone Number [facility] [address] [place] [address] * FOLLICLE STIMULATING HORMONE LEVEL (02/05/2015 4:25 PM EDT) FSH 4.43 mIU/mL [facility] Comment: Suggested Reference Range (mIU/mL) Females Follicular Phase 3.5 - 12.5 Ovulation Phase 4.7 - 21.5 Luteal Phase 1.7 - 7.7 Postmenopause 25.8 - 134.8 Males 1.5 - 12.4 Blood specimen (specimen) UPPER LIMB STRUCTURE / Unknown 02/05/2015 4:25 PM EDT 02/05/2015 8:55 PM EDT Abdulkadir Montoya MD CHEMISTRY ORDERABLES Final Res ult Performing Organization Address [facility] [place] [address] * (ABNORMAL) IRON/UIBC (01/20/2015 2:58 PM EDT) Only the most recent of2 resultswithin the time period is included. Iron 29(L) 30 - 160 mcg/dL [facility] UIBC 263 112 - 347 mcg/dL [facility] Transferrin Saturation 10(L) 20 - 50 % [facility] Blood specimen (specimen) UPPER LIMB STRUCTURE / Unknown 01/20/2015 2:58 PM EDT 01/20/2015 9:13 PM EDT Abdulkadir Montoya MD CHEMISTRY ORDERABLES Final Res ult [facility] [address] [place] [address] * POCT HEMOCCULT 1-3 CARDS (10/27/2014 3:16 PM EDT) Pathologist [facility] Fec Heme NEG Pos/Neg SEP [facility] Comment:ALL 3 SPECIMENS FROM 10/21/14 NEG Lot Number SEP OFFICE Expiration Date SEP OFFICE SeriAl # SEP OFFICE Stool specimen (specimen) 10/27/2014 3:16 PM EDT Abdulkadir Montoya MD POINT OF CARE TEST ORDERABLES Final Result Performing Organization Address [facility]/ZIP Co de Phone Number SEP OFFICE * (ABNORMAL) FERRITIN (10/20/2014 2:32 PM EDT) Pathologist [facility] Ferritin 7(L) 13 - 150 ng/mL [facility] Blood specimen (specimen) UPPER LIMB STRUCTURE / Unknown 10/20/2014 2:32 PM EDT 10/20/2014 7:38 PM EDT us Abdiel Lucas MD CHEMISTRY ORDERABLES Final Result Performing Organization Address City/[facility]/ZIP Co de Phone Number [facility] [address] [place] [address] * MAGNESIUM LEVEL (10/17/2014 5:05 AM EDT) Pathologist [facility] Magnesium 2.0 1.6 - 2.4 mg/dL [facility] Blood specimen (specimen) 10/17/2014 5:05 AM EDT 10/17/2014 5:50 AM EDT us Brandeesteve Vazquezjorget SAUTE CHEF CHEMISTRY ORDERABLES Final Res ult Performing Organization Address [facility] Co de Phone Number [facility] [address] [place] [address] * (ABNORMAL) HEPATIC FUNCTION PANEL (10/17/2014 5:05 AM EDT) Total Protein 6.3(L) 6.4 - 8.3 gm/dL [facility] Albumin 3.8 3.5 - 5.2 gm/dL [facility] Bili Direct <0.2 0.0 - 0.3 mg/dL [facility] Bili Total 0.3 0.1 - 1.3 mg/dL [facility] AST 18 <=40 IU/L [facility] ALT 18 <=41 IU/L [facility] Alk Phos 77 35 - 104 IU/L [facility] Blood specimen (specimen) 10/17/2014 5:05 AM EDT 10/17/2014 5:50 AM EDT us Brandee Georgejorget SAUTE CHEF CHEMISTRY ORDERABLES Edited Re sult - Final Performing Organization Address [facility] de Phone Number [facility] [address] [place] [address] * IR INJECTION INTERLAMINAR EPIDUR LUMBAR SACRAL [...] BRIEF HISTORY: The patient presents today to [facility] for a scheduled lumbar epidural steroid injection [...] 2 to 4 weeks. Jayda Hamilton MD [employer] / Board Certified [facility] [phone] [facility] Procedure Note aJyda Hamilton MD - 06/30/2014 PRE-PROCEDURE DIAGNOSIS: 724.4 POST-PROCEDURE DIAGNOSIS: 724.4 PROCEDURE: Left L5-S1 Interlaminar lumbar epidural steroid injection withfluoroscopy and epidurography. BRIEF HISTORY: [facility] [...] [facility] and was monitored per protocol. [...] 2 to 4 weeks. Jayda Hamilton MD [employer] [facility] / Board Certified [facility] [phone] [facility] Jim Penn MD [facility] IR ORDERABLES Final Resu lt * XR [...] tissue abnormality isseen. us Abdiel Uribe MD IM DIAGNOSTIC IMAGING NATALIEKim BALDWIN Final Result * MRI SHOULDER RIGHT [...] TEST (06/18/2012 9:14 AM EST) Test Negative [facility] Blood specimen (specimen) 06/18/2012 9:14 AM EST 06/18/2012 9:21 AM EST us Faith Navas MD CHEMISTRY ORDERABLES Edited [facility] [address] [place] [address] * SCANNED LABS (03/14/2012 12:00 AM EST) [...] significant change from earlier record Borderline ECG Sludge Control Attendant- KRISTEN LOUIE MD Reading Physician- KRISTEN LOUIE MD Released Date Time- 12/24/081511 Procedure Note Kristen Louie F - 07/03/2009 Sinus rhythm Anterior T wave changes are borderline abnormal No significant change from earlier record Borderline ECG Sludge Control Attendantjoanne LOUIE MD Reading Physician- KRISTEN LOUIE MD Released Date Time- 12/24/081511 Abdulkadir Montoya MD [facility] HISTORICAL F inal Result * [...] Chest is otherwise negative. Impression- Negative chest. Sludge Control Attendant- BERENICE SKIRVIN Reading Physician- EMILY M DOERGER M.D. Released Date Time- 12/23/08 1537 Procedure Note Emily Spencer - 07/03/2009 Portable chest, 12/23/2008 Indication- Shortness of breath. Findings- AP upright portable chest is compared to two-view chest 07/04/2005. No significant interval change. Normal heart size and pulmonary vascularity. Lungs are clear. Chest is otherwise negative. Impression- Negative chest. Loreto SPENCER M.D. Released Date Time- 12/23/08 1537 us Manav Funk DO IMG [facility] HISTORICAL F inal Result * EK EKG REG (07/04/2008 3:15 PM EDT) Anatomical Region Laterality Modality Other 07/04/2008 3:15 PM EDT Narrative 07/05/2008 10:00 AM EDT Sinus tachycardia Nonspecific St and/or T-wave abnormality Rate faster than on previous tracing. Latonya- NICOLAS Schulz Physician- NICOLAS HIDALGO M.D. Released Date Time- 07/05/08 1000 Procedure Note Nicolas Hidalgo - 07/02/[address] and/or T-wave abnormality Rate faster than on previous tracing. Sludge Control Attendant- NICOLAS HIDALGO M.D. Reading Physician- NICOLAS HIDALGO M.D. Released Date Time- 07/05/08 1000 Fredrick Christian MD [facility] HISTORICAL F inal Result * XR SHOULDER GC (05/25/2007 7:13 PM EST) Anatomical Region Laterality Modality Other 05/25/2007 7:13 PM EST Narrative 05/25/2007 9:36 PM EST RM7 Right shoulder series, (C3 views)- 3 day history of recurrent pain. No recent trauma. Normal alignment of the AC and glenohumeral joints. No focal fracture or degenerative change. Impression- Negative right shoulder. Sludge Control Attendant- ANTONELLA Schulz Radiologist- WILLIAM ESPINOSA DO Released Date Time- 05/25/07 2249 Procedure William Fortune - 07/02/2009 RM7 Right shoulder series, (C3 views)- 3 day history of recurrent pain. No recent trauma. Normal alignment of the AC and glenohumeral joints. No focal fracture or degenerative change. Impression- Negative right shoulder. Sludge Control Attendant- ANTONELLA CARDOSO Reading Radiologist- WILLIAM ESPINOSA DO Released Date Time- 05/25/07 2249 Kaleb Muir MD [facility] HISTORICAL Final Result * XR CHEST PA [...] is seen. Impression- No acute cardiopulmonary disease. Sludge Control Attendant- GISELA Schulz Radiologist- WILLIAM DICKINSON MD [...] is seen. Impression- No acute cardiopulmonary disease. Sludge Control Attendant- GISELA Schulz Radiologist- WILLIAM DICKINSON MD Released Date Time- 07/04/05 1234 Jj High MD [facility] [employer] HISTORICAL Final Result * XR SHOULDER (03/05/2005 10:15 PM EST) Anatomical Region Laterality Modality Other 03/05/2005 10:1 5 PM EST Narrative 03/06/2005 8:52 AM EST RM 3 Right shoulder three views 03/05/2005. HISTORY- Injury. No fracture or dislocation is seen. Sludge Control Attendant- AVELINO Fagan- COY TOTH MD Released Date Time- 03/06/05 0852 Procedure Note Coy Toth - 06/30/2009 RM 3 Right shoulder three views 03/05/2005. HISTORY- Injury. No fracture or dislocation is seen. Sludge Control Attendant- AVELINO Fagan- COY TOTH MD Released Date Time- 03/06/05 0852 Shantal Hinton MD [facility] [employer] RAD HISTORICA L Final Result * MM DIAGNOSTIC BILATERAL (10/29/2004 12:00 AM EDT) Anatomical Region Laterality Modality Other 10/29/2004 10/29/2004 Narrative 10/29/2004 12:00 AM EDT VERIFIED [facility] Reason: MASTALGIA Dict.Staff: ARACELY HANKINS Verified By: [...] Procedure Note Unknown, U - 08/06/2009 VERIFIED [facility] Reason: MASTALGIA Dict.Staff: ARACELY HANKINS Verified By: [...] GROUNDS. end of result us U Unknown IMG [facility] RAD HISTORICAL Final Result Visit Diagnoses [...] or higher ([facility]) 04/20/2023 TANIA (obstructive sleep apnea) Obstructive sleep [...] 05/02/2023 Obesity, morbid, BMI 50 or higher (HCC) 05/09/2023 Obstructive sleep apnea Obstructive sleep apnea [...] in adult ([facility]) 11/01/2023 Acute cough 11/03/2023 COVID-19 virus detected [...] in adult ([facility]) 02/09/2024 Peripheral edema Edema 02/23/2024 Bronchitis Bronchitis, [...] of 60.0 to 69.9 in adult (HCC) 08/08/2024 Stress reaction of left foot, initial [...] 11/12/2024 Seizure-like activity (HCC) Other convulsions 11/19/2024 Seizure-like activity (HCC) Other convulsions 11/27/2024 Mild intermittent asthma with acute exacerbation Unspecified asthma, with exacerbation 11/30/2024 YNES positive Other and unspecified nonspecific immunological findings 12/10/2024 Dysuria 12/16/2024 UTI (urinary tract infection), uncomplicated Urinary tract infection, site not specified 12/16/2024 Bronchitis Bronchitis, not specified as acute or chronic 01/16/2025 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 01/17/2025 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 02/10/2025 Class 3 severe obesity due to excess calories with serious comorbidity and body mass index (BMI) of 50.0 to 59.9 in adult ([facility]) 02/10/2025 Annual physical exam Routine general medical examination at a health care facility 02/18/2025 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 02/18/2025 Class 3 severe obesity due to excess calories with serious comorbidity and body mass index (BMI) of 50.0 to 59.9 in adult ([facility]) 02/18/2025 Prediabetes Other abnormal glucose 02/18/2025 Lipid screening Screening for lipoid disorders 02/18/2025 Chronic midline low back pain with left-sided sciatica 02/18/2025 Medication management Encounter for other specified aftercare 02/18/2025 Flu vaccine need Need for prophylactic vaccination and inoculation against influenza 02/18/2025 Need for pneumococcal vaccination Need for prophylactic vaccination against streptococcus pneumoniae (pneumococcus) 02/18/2025 Skin tag Unspecified hypertrophic and atrophic condition of skin 02/18/2025 Gingival erythema Unspecified gingival and periodontal disease 02/23/2025 Dental infection Acute apical periodontitis of pulpal origin 02/23/2025 Oral infection Cellulitis and abscess of oral soft tissues 02/23/2025 Acute pain of left knee 03/27/2025 Acute pain of left knee 03/27/2025 Osteoarthritis of left knee, unspecified osteoarthritis type 03/27/2025 Restless legs syndrome (RLS) 04/02/2025 Acute cough 04/04/2025 Immunosuppressed status Unspecified disorder of immune mechanism 04/04/2025 URI, acute Acute upper respiratory infections of unspecified site 04/04/2025 Osteoarthritis of left knee, unspecified osteoarthritis type 04/09/2025 Osteoarthritis of left knee, unspecified osteoarthritis type 04/11/2025 Osteoarthritis of left knee, unspecified osteoarthritis type 04/11/2025 Pre-op testing Preoperative examination, unspecified 04/11/2025 Abdominal pain, LUQ (left upper quadrant) Abdominal pain, left upper quadrant 04/18/2025 Fever, unspecified fever cause 04/21/2025 Chest pain Chest pain, unspecified 10/17/2014 Asthma [...] of 60.0 to 69.9 in adult (HCC) 11/16/2024 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 Author Eat better, exercise, reach an ideal body weight General No Rula Birch CCMA Stay Tobacco Free Lifestyle No Rula Birch CCMA Care Teams Catalyst Unit Operator Relationship Specialty Start Date End Date Abdulkadir Montoya MD [address] [place], [place] [id number] PCP - General 06/29/09
--- OUTSIDE RECORDS SUMMARY | 2025-04-22 16:00 | XMS_ITS | Encounter Summary ---
Author Organization [place] [address] Care Team Providers Care Insurance Claims Processor Name Role Phone Abdulkadir Montoya MD Primary Care Provider [phone] Reason for Visit * Reason Comments Medication Refill Encounter Details Date Type Department Care Team (Late st Contact Info) Description 04/04/2025 Refill SEP Marina [facility] [place] [address] Abdulkadir [place] [address] [place] [address] Medication Refill Social History Tobacco Use [...] Date Recorded PHQ-2 Total Score 0 02/18/2025 [facility] [place] of Occupat ional Health - Occupational Stress [...] NIGHTLY NEEDED FOR MUSCLE SPASMS. 30 Tablet 04/04/2025 documented in this encounter Plan of Treatment Upcoming Encounters Date Type Department Care Team (Late st Contact Info) Description 05/27/2025 9:30 AM EST Office Visit Dusty MCCLOUD [address] [address] Lupillo Ponce APRN [address] [place], [place] [address] 06/09/2025 11:30 AM EST Appointment [place] [address] [facility] [place] [address] Richar Reed PA-C [address] [id number] 08/11/2025 1:50 PM EDT Office Visit [facility] Diabetes [place] [address] [address] Judith Lomax MD [address] [address] documented as of this [...] BY MOUTH NIGHTLY NEEDED FOR MUSCLE SPASMS. 03/04/2025 04/04/2025 documented as of this encounter Care Teams Insurance Claims Processor Relationship Specialty Start Date End Date Abdulkadir Montoya MD [address] [place] [id number] PCP - General 06/29/09 documented as of this encounter
[2025-04-22 16:01] VITALS: BP 111/68; PULSE 87; RESP 22; O2SAT 98
[2025-04-22 16:01] LABS: Coronavirus 19, PCR Not Detected (NotDetected); Influenza A, PCR Not Detected (NotDetected); Influenza B, PCR Not Detected (NotDetected)
--- OUTSIDE RECORDS SUMMARY | 2025-04-22 16:01 | XMS_ITS | Encounter Summary ---
Author Organization [facility] [place] [address] Care Team Providers Care Fleet Salesperson Name Role Phone Abdulkadir Montoya MD Primary Care Provider [phone] Encounter Details Date Type Department Care Team (Latest Contact Info) Description 02/23/2025 Travel Social History Tobacco Use Types Packs/Day [...] Date Recorded PHQ-2 Total Score 0 02/18/2025 [facility] [place] of Occupat ional Health - Occupational Stress [...] Dusty HUDDLESTONGeorges [address] [place], [place] [phone] Lupillo Ponce, STORE OPERATIONS MANAGER [address] [place], [place] [phone] 06/09/2025 11:30 AM EST Appointment [place] [address] [place] [address] Richar Reed, PADylanC [address] [place] [address] 08/11/2025 1:50 PM EDT Office Visit [facility] Diabetes [place] [address] [address] Judith Lomax MD [address] [address] documented as of this encounter Goals Goal Patient Goal Type Associated Problems Recent Progress Patient-Stated? Author Eat better, exercise, reach an ideal body weight General No Rula Birch CCMA Stay Tobacco Free Lifestyle No Rula Birch CCMA documented as of this encounter Visit Diagnoses Not on filedocumented in this encounter Care Teams Fleet Salesperson Relationship Specialty Start Date End Date Abdulkadir [place] [address] [place] [address] PCP - General 06/29/09 documented as of this encounter
--- OUTSIDE RECORDS SUMMARY | 2025-04-22 16:01 | XMS_ITS | Encounter Summary ---
Author Organization [place] [address] Care Team Providers Care Orthopedic Brace Maker Name Role Phone Abdulkadir Montoya MD Primary Care Provider [phone] Encounter Details Date Type Department Care Team (Latest Contact Info) Description 02/20/2025 Results Follow-Up SEP Marina [address] [place] [address] Arminda Wilson, EMELY [address] [place] [address] CBC WITH DIFF, COMPREHENSIVE METABOLIC PANEL, HEMOGLOBIN A1C, Additional followed-up results: 3 Social History Tobacco Use Types Packs/Day Years [...] Date Recorded PHQ-2 Total Score 0 02/18/2025 [facility] [place] of Occupat ional Health - Occupational Stress [...] Assessment Author No 02/18/2025 1:34 PM Steve Gimeenz CCMA * Because of a physical, mental [...] Description 05/27/2025 9:30 AM EST Office Visit [facility]E [address] [place], [place] [phone] Lupillo Ponce, EMELY [address] [place], [place] [address] 06/09/2025 11:30 AM EST Appointment [facility] [address] [place] [address] Richar Reed, PADylanC [address] [address] 08/11/2025 1:50 PM EDT Office Visit [facility] Diabetes [place] 1500 [address] [facility] [address] [place] [address] Judith Lomax MD [address] [facility] [address] [place] [address] documented as of this encounter Goals Goal Patient Goal Type Associated Problems Recent Progress Patient-Stated? Author Eat better, exercise, reach an ideal body weight General No Rula Birch CCMA Stay Tobacco Free Lifestyle No Rula Birch CCMA documented as of this encounter Visit Diagnoses Not on filedocumented in this encounter Care Teams Orthopedic Brace Maker Relationship Specialty Start Date End Date Abdulkadir [place] [address] PCP - General 06/29/09 documented as of this encounter
--- OUTSIDE RECORDS SUMMARY | 2025-04-22 16:01 | XMS_ITS | Encounter Summary ---
Author Organization [place] [address] Care Team Providers Care Hamper Maker Name Role Phone Abdulkadir Montoya MD Primary Care Provider [phone] Reason for Visit * Reason Onset Date Comments Dental Problem 02/23/2025 Encounter Details Date Type Department Care Team (Late st Contact Info) Description 02/23/2025 Nurse Triage SEP Nurse Now [address] [place] [address] Natalie Olivares RN Social History Tobacco Use Types Packs/Day Years [...] Date Recorded PHQ-2 Total Score 0 02/18/2025 [facility] [employer] of Occupat ional Health - Occupational Stress [...] Steve Zelaya CCMA documented in this encounter Miscellaneous Notes * Telephone Encounter - Natalie Olivares RN - 02/23/2025 7:50 AM EST Nurse Triage Call -Chief Complaint: Pt Had tooth pulled on left lower jaw, pt now sees pus in area that was pulled, jaw is swollen and is unable to fully open mouth. Chills. Pain 08/31. Pt plans to go to urgent care this morning. , -Reported by: Patient -Vitals: No vitals obtained on this call -Disposition per protocol: see physician within 4 hours. -Patient declined to schedule an appointment -Follow up/Concerns: none ' Reason for Disposition Face is very swollen Protocols used: Tooth [id number] documented in this encounter Plan of Treatment Upcoming Encounters Date Type Department Care Team (Late st Contact Info) Description 05/27/2025 9:30 AM EST Office Visit [place]y [place] [facility] [address] [place] [address] Lupillo Ponce APRN [address] [place], [place] [phone] 06/09/2025 11:30 AM EST Appointment [place] [address] [facility] [place] [address] Richar Reed, ISAI [address] [address] 08/11/2025 1:50 PM EDT Office Visit [facility] [address] [facility] [address] [place] [address] Judith Lomax MD [address] [facility] [address] [place] [address] documented as of this encounter Goals Goal Patient Goal Type Associated Problems Recent Progress Patient-Stated? Author Eat better, exercise, reach an ideal body weight General No Rula Birch CCMA Stay Tobacco Free Lifestyle No Rula Birch CCMA documented as of this encounter Visit Diagnoses Not on filedocumented in this encounter Care Teams Hamper Maker Relationship Specialty Start Date End Date Abdulkadir Montoya MD [address] [place] [address] PCP - General 06/29/09 documented as of this encounter
--- OUTSIDE RECORDS SUMMARY | 2025-04-22 16:01 | XMS_ITS | Encounter Summary ---
Author Organization [place] [address] Care Team Providers Care Retrieval Specialist Name Role Phone Abdulkadir Montoya MD Primary Care Provider [phone] Reason for Visit * Reason Comments Medication Refill Encounter Details Date Type Department Care Team (Late st Contact Info) Description 02/22/2025 Refill SEP Marina [facility] [address] Abdulkadir Montoya [place] [address] [place] [address] Medication Refill Social History Tobacco Use [...] Date Recorded PHQ-2 Total Score 0 02/18/2025 [facility] [place] of Occupat ional Health - Occupational Stress [...] Assessment Author No 02/18/2025 1:34 PM EDT Ellen Zelaya CCMA documented as of this encounter Mental Status * Because of a physical, mental or emotional condition, does this person have serious difficulty concentrating, remembering or making decisions? Answer Entry Date Author No 02/18/2025 1:34 PM EDT Steve Zelaya CCMA documented in this encounter Ordered Prescriptions Prescription Sig Dispense Quantity Refills Last Filled Start Date End Date rizatriptan (MAXALT) 10 mg Oral Tablet TAKE 1 TABLET BY MOUTH DAILY NEEDED (HEADACHE) FOR UP TO 30 DAYS. MAY REPEAT IN 2 HOURS IF NEEDED 10 Tablet 02/24/2025 03/24/2025 documented in this encounter Plan of Treatment Upcoming Encounters Date Type Department Care Team (Late st Contact Info) Description 05/27/2025 9:30 AM EST Office Visit Joseph FLAQUITO 2626 [facility] 100 [place] [address] Lupillo Ponce APRN [address] [place], [place] [phone] 06/09/2025 11:30 AM EST Appointment [place] [address] [facility] [place] [address] Richar Reed PA-C [address] [address] 08/11/2025 1:50 PM EDT Office Visit [facility] Diabetes [place] [address] [address] Judith Lomax MD [address] [address] documented as of this encounter Goals Goal Patient Goal Type Associated Problems Recent Progress Patient-Stated? Author Eat better, exercise, reach an ideal body weight General No Rula Birch CCMA Stay Tobacco Free Lifestyle No Rula Birch CCMA documented as of this encounter Visit Diagnoses Not on filedocumented in this encounter Discontinued Medications Medication Sig Discontinue Reason Start Date End Da te rizatriptan (MAXALT) 10 mg Oral Tablet Take 1 Tablet by mouth daily as needed (headache) for up to 30 days. May repeat in 2 hours if needed 01/22/2025 02/24/2025 documented as of this encounter Care Teams Retrieval Specialist Relationship Specialty Start Date End Date Abdulkadir Montoya MD [address] [place] [address] PCP - General 06/29/09 documented as of this encounter
--- OUTSIDE RECORDS SUMMARY | 2025-04-22 16:01 | XMS_ITS | Encounter Summary ---
Author Organization [place] [address] Care Team Providers Care Solar Electric Installer Name Role Phone Abdulkadir Montoya MD Primary Care Provider Reason for Visit * Reason Comments Medication Refill Encounter Details Date Type Department Care Team (Late st Contact Info) Description 04/02/2025 Refill SEP Marina [facility] [address] Abdulkadir [place] [address] Medication Refill Social History Tobacco Use [...] Date Recorded PHQ-2 Total Score 0 02/18/2025 [facility] [place] of Occupat ional Health - Occupational Stress [...] End Date rOPINIRole (REQUIP) 1 mg Oral TabletIndications:R estless legs syndrome (RLS) TAKE 1 TABLET BY MOUTH EVERY DAY AT NIGHT 90 Tablet 1 04/02/2025 documented in this encounter Plan of Treatment Upcoming Encounters Date Type Department Care Team (Late st Contact Info) Description 05/27/2025 9:30 AM EST Office Visit Dusty MCCLOUD 2626 [facility] 100 [place] [address] Lupillo Ponce APRN [address] [place], [place] [phone] 06/09/2025 11:30 AM EST Appointment [facility] [address] [facility] [place] [address] Richar Reed, PADylanC [address] [address] 08/11/2025 1:50 PM EDT Office Visit [facility] Diabetes [place] [address]rakash [facility] [address] [place] [address] Juidth Lomax MD [address] [address] documented as of this encounter [...] TABLET BY MOUTH EVERY DAY AT NIGHT 10/08/2024 04/02/2025 documented as of this encounter Care Teams Solar Electric Installer Relationship Specialty Start Date End Date Abdulkadir Montoya MD [address] [place] [address] PCP - General 06/29/09 documented as of this encounter
--- OUTSIDE RECORDS SUMMARY | 2025-04-22 16:01 | XMS_ITS | Encounter Summary ---
Author Organization [facility] [address] Care Team Providers Care Nail Cutter Name Role Phone Abdulkadir Montoya MD Primary Care Provider [phone] Encounter Details Date Type Department Care Team (Latest Contact Info) Description 04/21/2025 Travel Social History Tobacco Use Types Packs/Day [...] Date Recorded PHQ-2 Total Score 0 02/18/2025 [facility] [place] of Occupat ional Health - Occupational Stress [...] Dusty HUDDLESTONGeorges [address] [place], [place] [phone] Lupillo Ponce, MOTHER BABY RN [address] [place], [place] [phone] 06/09/2025 11:30 AM EST Appointment [place] [address] [place] [address] Richar Reed, PADylanC [address] [place] [address] 08/11/2025 1:50 PM EDT Office Visit [facility] Diabetes [place] [address] [address] Judith Lomax MD [address] [address] documented as of this encounter Goals Goal Patient Goal Type Associated Problems Recent Progress Patient-Stated? Author Eat better, exercise, reach an ideal body weight General No Rula Birch CCMA Stay Tobacco Free Lifestyle No Rula Birch CCMA documented as of this encounter Visit Diagnoses Not on filedocumented in this encounter Care Teams Nail Cutter Relationship Specialty Start Date End Date Abdulkadir [place] [address] [address] [place] [address] PCP - General 06/29/09 documented as of this encounter
--- OUTSIDE RECORDS SUMMARY | 2025-04-22 16:01 | XMS_ITS | Encounter Summary ---
Author Organization [place] [address] Care Team Providers Care Ceo And Co Founder Name Role Phone Abdulkadir Montoya MD Primary Care Provider [phone] Reason for Visit * Reason Comments Medication Refill Encounter Details Date Type Department Care Team (Late st Contact Info) Description 03/04/2025 Refill SEP Marina [facility] [place] [address] Abdulkadir [place] [address] Medication Refill Social History Tobacco Use [...] Total Score 0 02/18/2025 [facility] [place] of Occupat ional Health - Occupational Stress [...] BY MOUTH EVERY DAY 100 Tablet 1 03/05/2025 documented in this encounter Miscellaneous Notes * Telephone Encounter - Ethan Dong CPhT - 03/05/2025 3:00 PM EST PARoxetine Future Visit: na Last Assessed Visit: 02/18/25(AWV or similar dx) Follow-Up: 08/19/25 All protocols passed. Refills approved and sent to requesting pharmacy. Routed to [facility] if an appointment is needed. documented in this encounter Plan of Treatment Upcoming Encounters Date Type Department Care Team (Late st Contact Info) Description 05/27/2025 9:30 AM EST Office Visit Dusty MCCLOUD [address] [place] [address] Lupillo Ponce APRN [address] [place], [place] [phone] 06/09/2025 11:30 AM EST Appointment [place] [address] [place] [address] Richar Reed, PA-C [address] [address] 08/11/2025 1:50 PM EDT Office Visit [facility] [address] [place] [address] Judith Lomax MD [address] [place] [address] documented as of this encounter Goals Goal [...] TAKE 1 TABLET BY MOUTH EVERY DAY 02/04/2025 03/05/2025 documented as of this encounter Care Teams Ceo And Co Founder Relationship Specialty Start Date End Date Abdulkadir Montoya MD [address] [place] [address] PCP - General 06/29/09 documented as of this encounter
--- OUTSIDE RECORDS SUMMARY | 2025-04-22 16:01 | XMS_ITS | Encounter Summary ---
Author Organization [place] [address] Care Team Providers Care Striker Out Name Role Phone Abdulkadir Montoya MD Primary Care Provider [phone] Reason for Visit * Reason Comments Medication Refill Encounter Details Date Type Department Care Team (Late st Contact Info) Description 03/03/2025 Refill SEP [place] [address] Abdulkadir [place] [address] [place] [address] Medication Refill Social History Tobacco Use [...] Date Recorded PHQ-2 Total Score 0 02/18/2025 [facility] [place] of Occupat ional Health - Occupational Stress [...] NIGHTLY NEEDED FOR MUSCLE SPASMS. 30 Tablet 03/04/2025 documented in this encounter Plan of Treatment Upcoming Encounters Date Type Department Care Team (Late st Contact Info) Description 05/27/2025 9:30 AM EST Office Visit Dusty MCCLOUD 2626 [facility] 100 [place] [address] Lupillo Ponce APRN [address] [place], [place] [phone] 06/09/2025 11:30 AM EST Appointment [facility] [address] [place] [address] Richar Reed, PADylanC [address] [address] 08/11/2025 1:50 PM EDT Office Visit [facility] Diabetes [place] [address] [facility] [address] [place] [address] Judith Lomax MD [address] [address] documented as of this encounter [...] te tiZANidine (ZANAFLEX) 4 mg Oral Tablet Take 1 Tablet by mouth nightly as needed for Muscle spasms. 02/04/2025 03/04/2025 documented as of this encounter Care Teams Striker Out Relationship Specialty Start Date End Date Abdulkadir Montoya MD [address] [place] [address] PCP - General 06/29/09 documented as of this encounter
--- OUTSIDE RECORDS SUMMARY | 2025-04-22 16:01 | XMS_ITS | Encounter Summary ---
Author Organization [place] [address] Care Team Providers Care Entrepreneur Name Role Phone Abdulkadir Montoya MD Primary Care Provider [phone] Reason for Visit * Reason Comments Medication Refill Encounter Details Date Type Department Care Team (Late st Contact Info) Description 03/22/2025 Refill SEP Marina [facility] [place] [address] Abdulkadir Montoya [place] [address] Medication Refill Social History Tobacco Use [...] Total Score 0 02/18/2025 [facility] [place] of Occupat ional Health - Occupational Stress [...] 2 HOURS IF NEEDED 9 Tablet 1 03/24/2025 04/23/2025 documented in this encounter Plan of Treatment Upcoming Encounters Date Type Department Care Team (Late st Contact Info) Description 05/27/2025 9:30 AM EST Office Visit Dusty [place] 2626 [facility] [address] [place] [address] Lupillo Ponce APRN [address] [place], [place] [phone] 06/09/2025 11:30 AM EST Appointment [place] [address] [facility] [place] [address] Richar Reed PA-C [address] [address] 08/11/2025 1:50 PM EDT Office Visit [facility] Diabetes [place] [address] [address] Judith Lomax MD [address] [address] documented as of this encounter [...] te rizatriptan (MAXALT) 10 mg Oral Tablet TAKE 1 TABLET BY MOUTH DAILY NEEDED (HEADACHE) FOR UP TO 30 DAYS. MAY REPEAT IN 2 HOURS IF NEEDED 02/24/2025 03/24/2025 documented as of this encounter Care Teams Entrepreneur Relationship Specialty Start Date End Date Abdulkadir Montoya MD [address] [place], [place] [address] PCP - General 06/29/09 documented as of this encounter
--- NOTE | 2025-04-22 16:03 | ED_ITS ---
<Statement entered by Lela Feldman MD - 04/22/25 23:18> I was consulted by the GEOVANNA, and we discussed the complexity of the problems being addressed. I approved the treatment and management plan for this patient's care in the emergency department, thus performing a substantive portion of the medical decision making. Lela Feldman MD, CONSTANZA, FACEP Discharge Plan Disposition Chief Complaint: Shortness of Breath/Dyspnea Referrals Follow up/Referrals: Emilio Sales MD [Referring, Medical] - See instructions Print Language Print Language: Slovak Discharge ED Provider: Lela Feldman General Adult HPI General Chief complaint: Shortness of Breath/Dyspnea Stated complaint: Asthma attack Time Seen by Provider: 04/22/25 15:47 Mode of Arrival: Ambulatory Source of Information: Patient Description of Symptoms (Recalled from ER Triage Doc. by RN): Patient c/o SOA. pt was dx with bronchitis yesterday and given antibiotics. Pt stated around 1:00pm today she had a asthma flare up and did two albuterol treatments without any relief. History of Present Illness HPI narrative: 49-year-old female presents presents with complaint of shortness of breath. She was diagnosed at primary care with bronchitis yesterday and given antibiotics. She says around 1:00 today she had an asthma flareup and did do albuterol treatments and inhaler before she came to the ER. 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 Related Data Allergies Allergy/AdvReac Type Severity Reaction Status Date / Time amoxicillin Allergy Anaphylaxis Verified 04/22/25 15:58 cefazolin Allergy Rash Verified 04/22/25 15:58 cefdinir (From Omnicef) Allergy Anaphylaxis Verified 04/22/25 15:58 metronidazole Allergy Rash Verified 04/22/25 15:58 nabumetone Allergy Rash Verified 04/22/25 15:58 [facility] Disclaimer: The information contained in this section may have been updated after the patient was seen, as this information can be updated by other users. Social History Smoking Status: Never smoker alcohol intake: never current occupational status: employed Travel in the last 8 weeks?: Outside the continental [place] Have you lived/traveled outside [place] in past 30 days?: No Contact w/someone who lives/traveled outside US past 30 days?: No Exposure to someone with infectious disease in past 14 days?: No Do you have a fever (greater than 100.4 F or 38 C)?: No Have you tested positive for COVID-19?: No Exposed to someone with COVID-19 in past 14 days?: No Do you have a sore throat?: No Do you have a cough?: No Do you have any weakness?: No Do you have any diarrhea?: No Are you experiencing any unusual bleeding?: No Do you have any muscle aches/pain?: No Do you have any abdominal pain?: No Are you experiencing loss of taste or smell?: No ROS Obtained: Yes Systems reviewed as appropriate & no additional complaints except as documented Constitutional Constitutional: Reports as per HPI Physical Exam General General appearance: alert Head Head exam: normocephalic Eye Eye exam: Present PERRL and EOMI ENT ENT exam: Present normal oropharynx and mucous membranes moist Neck Neck exam: Present full ROM and trachea midline Respiratory Respiratory exam: Present wheezes Cardiovascular Cardiovascular exam: Present regular rate, normal rhythm, normal heart sounds, +S1 and +S2 Abdominal Exam Abdominal exam: Present soft and normal bowel sounds Extremities Exam Extremities exam: Present full ROM and normal capillary refill Neurological Exam Neurological exam: Present alert and oriented X3 Skin Skin exam: Present warm and dry Medical Decision Making Medical Records Screening: Per USPSTF and CDC recommendations, given the prevalence of disease in our region, it is our hospital?s policy to screen for HIV and viral Hepatitis for all patients aged 18 and over and those with ongoing risk factors. Cholo Inquiry Pt receiving controlled substance: No Cholo was queried for this patient: No Vital Signs: 04/22/25 15:47 04/22/25 16:01 04/22/25 16:31 Temperature 99.1 F Temperature Source Oral Pulse Rate 87 91 H Pulse Rate [Right Brachial] 93 H Respiratory Rate 20 22 22 Blood Pressure 111/68 134/61 Blood Pressure [Right Arm] 122/67 Blood Pressure Mean [Right Arm] 85 Blood Pressure Source [Right Arm] Automatic Cuff Blood Pressure Position [Right Arm] Sitting 02 Sat by Pulse Oximetry 97 98 98 Oxygen Delivery Method Room Air Lab Data Lab Results 04/22/25 15:41: WBC 6.4, RBC 4.89, Hgb 12.7, Hct 39.8, MCV 81.4, MCH 26.0 L, MCHC 31.9, RDW 15.1, Plt Count 233, MPV 10.9 H, Neut % (Auto) 60.0, Lymph % (Auto) 26.1, Jerome % (Auto) 11.7 H, Eos % (Auto) 1.7, Baso % (Auto) 0.3, Neut # (Auto) 3.9, Lymph # (Auto) 1.7, Jerome # (Auto) 0.8, Eos # (Auto) 0.1, Baso # (Auto) 0.0, Sodium 142, Potassium 3.6, Chloride 106, Carbon Dioxide 28, Anion Gap 11.6, BUN 14, Creatinine 1.00, Estimated Creat Clear 63, Estimated GFR 59, Est GFR ( Amer) 72, Glucose 103 H, Calcium 9.5, Magnesium 1.7, Total Bilirubin 0.5, AST 29, ALT 21, Alkaline Phosphatase 121, Troponin I < 0.01, Total Protein 7.5, Albumin 4.7, Globulin 2.8, Albumin/Globulin Ratio 1.7, Lipase 68 04/22/25 15:46: VBG pH 7.37, VBG pCO2 44.6, VBG pO2 35.8, VBG HCO3 25.1, VBG Total CO2 26.5, VBG O2 Saturation 67.7, VBG Base Excess -0.2, VBG Lactic Acid 2.2 H 04/22/25 15:55: SARS-CoV-2 (PCR) Not detected, Influenza A Untype (PCR) Not detected, Influenza Type B (PCR) Not detected 04/22/25 15:41 04/22/25 15:41 Orders (Tests/Meds): ED MEDICATIONS Discontinued Medications Generic Name Dose Route Start Last Admin Trade Name Freq PRN Reason Stop Dose Admin Albuterol Sulfate 20 mg 04/22/25 16:13 04/22/25 16:57 Albuterol 0.083% 2.5 Mg/3 Ml [facility] 04/22/25 16:14 20 mg ONCE ONE Administration Albuterol/Ipratropium 9 ml 04/22/25 15:47 04/22/25 15:59 Ipratropium/Albuterol 3 Ml [facility] 04/22/25 15:48 9 ml ONCE ONE Administration Dexamethasone Sodium Phosphate 10 mg 04/22/25 15:47 04/22/25 15:59 Dexamethasone 4mg/Ml 1ml Vial IV 04/22/25 15:48 10 mg ONCE ONE Administration Magnesium Sulfate 2 gm in 50 mls @ 50 mls/hr 04/22/25 15:47 04/22/25 15:59 Magnesium Sulfate 2gm/50ml Premix IV 04/22/25 16:46 50 mls/hr ONCE ONE Administration ORDERS Category Date Time Status Chest XR -- portable [XR chest portable] Stat Exams 04/22/25 15:47 Completed CBC [Complete Blood Count Auto Diff] Stat Lab 04/22/25 15:41 Completed Comprehensive Metabolic Panel Stat Lab 04/22/25 15:41 Completed Lipase Stat Lab 04/22/25 15:41 Completed Magnesium Stat Lab 04/22/25 15:41 Completed Rapid PCR Covid and Flu A/B Stat Lab 04/22/25 15:55 Completed Trop I [Troponin I] Stat Lab 04/22/25 15:41 Completed Troponin I Q3H Lab 04/22/25 19:00 Ordered Troponin I Q3H Lab 04/22/25 22:00 Ordered Venous Blood Gas Stat RT 04/22/25 15:46 Completed Medical Decision Narrative: patient is a 49-year-old presenting to the emergency department for evaluation of asthma attack, wheezing. Patient is hemodynamically stable and nontoxic- appearing upon arrival, afebrile. Differential diagnosis includes asthma attack, shortness of breath, pneumonia, flu. Workup will be conducted with hematologic labs, specific imaging. Initial inventions include analgesics, antibiotics. 1743 I checked on patient and had to turn off her hour-long continuous neb because she was becoming lightheaded. She is breathing much better and not wheezing at all at this time. Initial workup reviewed by me hematologic labs are remarkable for white blood cell count 6.4, H&H are normal, blood gas looked good except for lactic was 2.2. CMP was normal glucose was 103 troponin less than 0.01 no flu or COVID. Chest x-ray showed low lung volumes with bibasilar opacities which could be atelectasis or pneumonia. In the setting of believe patient likely has more pneumonia. Will continue to treat. Patient currently is on doxycycline that she just started taking last night. I will continue her on that doxycycline. I will add prednisone. She will continue taking her nebulizer treatments scheduled for the next 2 days as well as her inhaler. She will make an appointment with her PCP. Patient is safe for discharge home. Critical Care Critical Care Time Critical Care Time: No
[2025-04-22 16:04] LABS: VBG HCO3 25.1 mmol/L (23-30); VBG PCO2 44.6 mmol/L (35-51); VBG PH 7.37 mmol/L (7.31-7.41); VBG PO2 35.8 mmol/L (28-40)
[2025-04-22 16:05] LABS: Alanine Aminotransferase 21 U/L (12-78); Albumin Level 4.7 g/dl (3.5-5.0); Albumin/Globulin Ratio 1.7 (1.1-1.8); Alkaline Phosphatase 121 U/L (38-126); Anion Gap 11.6 mEq/L (5-15); Aspartate Amino Transferase 29 U/L (14-36); Bilirubin,Total 0.5 mg/dl (0.2-1.3); Blood Urea Nitrogen 14 mg/dl (7-17); Calcium 9.5 mg/dl (8.4-10.2); Carbon Dioxide 28 mmol/L (22.0-30.0); Chloride 106 mmol/L (98-107); Creatinine Clearance Estimated 63 mL/min (50-200); Creatinine,Serum 1.00 mg/dl (0.52-1.04); Estimated Glomerular Filt Rate 59 ml/min (>60); GFR (African American) 72 ML/MIN (>60); Globulin 2.8 g/dL (1.3-3.2); Glucose 103 mg/dl (74-100); Lipase 68 U/L (23-300); Magnesium 1.7 mg/dl (1.6-2.3); Potassium 3.6 mmoL/L (3.5-5.1); Sodium 142 mmol/L (136-145); Total Protein,Serum 7.5 g/dl (6.3-8.2)
[2025-04-22 16:06] LABS: Lactate Venous 2.2 mmol/L (0.4-2.0)
[2025-04-22 16:19] LABS: Troponin I < 0.01 ng/ml (0.00-0.034)
[2025-04-22 16:31] VITALS: BP 134/61; PULSE 91; RESP 22; O2SAT 98
--- NOTE | 2025-04-22 16:34 | PC.NURSE ---
Called Resp to Admin. breathing tx.
--- NOTE | 2025-04-22 16:36 | PC.NURSE ---
Patient in room and needs nothing at this time.
[2025-04-22] MEDS: ALBUTEROL 0.083% 2.5 MG/3 ML NEB 20 MG IH (16:57)
[2025-04-22 18:39] VITALS: BP 110/73; PULSE 110; RESP 18; TEMP 37.3; O2SAT 98
[2025-04-22 20:04] LABS: Reflex Lactic Add Lactic Reflex
== END 2025-04-22 18:43 | disposition home or self-care (01) ==
PROVIDERS: Nurse Practitioner; Emergency Provider Student in an Organized Health Care Education/Training Program; PCP Pediatrics
DX: J45.901 Unspecified asthma with (acute) exacerbation (principal); J18.9 Pneumonia, unspecified organism; R74.02 Elevation of levels of lactic acid dehydrogenase [LDH]
CPT/HCPCS: 71045; 80053; 82803; 83690; 83735; 84484; 85025; 87636; 93005; 96365; 96374; 99284; 99285; J1100; J3475